=== PATIENT | female | born 1940 | race Caucasian/White ===

== ENCOUNTER 2020-10-30 14:23 | Inpatient (IN) | payer OTHER, SELFPAY ==
--- OUTSIDE RECORDS SUMMARY | 2020-10-30 14:42 | XMS REPORT | Clinical Summary ---
:1940 Author Organization [facility] Address [address] [place] [address] Care Team Providers Name Role Phone Yanick Clemente MD Primary Care Provider Allergies Active Allergy Reactions Severity Noted Date Comments Iodine Hives 05/18/2017 Iodine And Iodide Containing Products Rash Low Medications Medication Sig Dispensed Refills Start Date End Date Status escitalopram Take 20 mg 0 07/29/2020 Activ e (LEXAPRO) 20 MG by mouth tablet daily. levothyroxine Take 25 mcg 0 11/22/2019 Act lona (SYNTHROID) 25 mcg by mouth tablet every morning. carvediloL (COREG) Take 6.25 0 10/23/2019 Active 6.25 MG tablet mg by mouth 2 (two) times a day with meals. anastrozole Take 1 mg 0 Active (ARIMIDEX) 1 mg by mouth chemo tablet daily. insulin ASPART Inject 8 0 03/26/2020 Acti ve (NovoLOG) 100 Units under unit/mL (3 mL) the skin 3 insulin pen (three) times a day with meals. amLODIPine (NORVASC) Take 10 mg 0 Active 10 mg tablet by mouth daily. insulin degludec Inject 36 0 Act lona (Tresiba FlexTouch Units under U-100) 100 unit/mL the skin (3 mL) insulin pen every morning. dicyclomine (BENTYL) Take 20 mg 0 Active 20 mg tablet by mouth 3 (three) times a day as needed (abdominal pain). losartan (COZAAR) 50 Take 50 mg 0 Active MG tablet by mouth 2 (two) times a day. omeprazole Take 20 mg 0 Active (PriLOSEC) 20 MG by mouth capsule daily. clonIDINE (CATAPRES) Take 1 5 tablet 0 09/18/2020 Active 0.1 MG tablet tablet twice a day for one day, then 1 tablet daily for 3 days, then stop. clonIDINE (CATAPRES) Take 0.1 mg 0 07/26/2020 Discontinued 0.1 MG tablet by mouth 3 0 (Stop Taking at (three) Discharge) times a day. furosemide (LASIX) Take 20 mg 0 02/21/2020 Discontinued 40 mg tablet by mouth 0 daily. methscopolamine Take 5 mg 0 05/30/2020 Dis continued (PAMINE FORTE) 5 MG by mouth 0 tablet daily. ciprofloxacin Take 500 mg 0 08/22/2020 Dis continued (Med (CIPRO) 500 MG by mouth 2 0 List Cleanup) tablet (two) times a day. insulin degludec 100 Inject 36 0 03/26/2020 09/13/20 2 Discontinued (Med unit/mL (3 mL) Units under 0 Lis t Cleanup) insulin pen the skin. hyoscyamine sulfate Take 1 0 Discontinued 0.125 mg tablet by 0 tablet,disintegratin mouth 3 g (three) times a day as needed (abdominal pain). clonIDINE (CATAPRES) Take 1 60 tablet 0 09/18/2020 09/18/20 2 Discontinued 0.1 MG tablet tablet (0.1 0 mg total) by mouth 2 (two) times a day for 30 days. sulfamethoxazole-tri Take 1 4 tablet 0 09/18/2020 09/20/20 2 methoprim (BACTRIM tablet by 0 DS) 800-160 mg per mouth every tablet 12 (twelve) hours for 2 days. Active Problems Problem Noted Date Syncope and collapse 09/13/2020 Syncope 09/13/2020 Lung mass 08/30/2020 Overview: Added automatically from request for francis collado [id number] Encounters Date Type Specialty Care Team Description 10/07/2020 Telephone Oncology Chato Tinsley MD 10/03/2020 Telephone Oncology Mikayla West RN 09/23/2020 Patient Outreach Quality Melony Castano RN 09/20/2020 Patient Outreach Quality Melony Castano RN 09/20/2020 Travel 09/20/2020 Telephone Oncology Chato Tinsley MD 09/16/2020 Surgery Cardiothoracic Serafin Schmidt FLEXIBLE Surgery MD Judith BRONCHOSCOPY, ELECTROMAGNETIC NAVIGATIONAL BRONCHOSCOPY, B IOPSY OF LEFT UPPER L OBE MASS 09/16/2020 Anesthesia Event Cardiothoracic Jaskaran Molina, Surgery 09/13/2020 [facility] General Internal Boyareddigari, Syncope a nd collapse (Primary Dx); - Encounter Medicine Alex Ryan MD Hyperglycemia; 09/19/2020 [place] [place] Hypertension , unspecified type; MD Que DIONICIO (acute kidney injury) (HCC); Adalid Mitchell Frequent PVCs; MD Que Lung mass 09/13/2020 Orders Only Cardiothoracic Provider, Stephanie Voss MD 09/13/2020 Travel 09/12/2020 Telephone General Surgery Serafin Schmidt MD 09/02/2020 Travel 09/02/2020 Orders Only Cardiothoracic Provider, Stephanie Voss MD 09/02/2020 Telephone Cardiothoracic Juan C, Stephanie Lentz MA 08/30/2020 [facility] Radiology Serafin Schmidt MD 08/30/2020 [facility] Radiology Serafin Schmidt MD 08/30/2020 [facility] Radiology Serafin Schmidt MD 08/30/2020 Office Visit Cardiothoracic Serafin Schmidt Lung mass (Pr imary Dx); Surgery MD Judith Pre-op testing 08/30/2020 Orders Only Cardiothoracic Provider, Stephanie Voss MD 08/30/2020 Travel 08/27/2020 Travel after 10/30/2019 Surgical History Surgery Date Site/Laterality Comments MASTECTOMY BRONCHOSCOPY, USING 09/16/2020 Chest/Left Procedure: F LEXIBLE ELECTROMAGNETIC NAVIGATION [facility] HOSCOPY, ELECTROMAGNETIC NAVIGATIONAL BRO NCHOSCOPY, BIOPSY OF LEFT U PPER LOBE MASS; Surgeon: Serafin Schmidt MD; Locat ion: [facility] OR; Serv ice: Thoracic; Later ality: Left; US, ENDOBRONCHIAL 09/16/2020 N/A Procedure: EBU S; Surgeon: Serafin Schmidt MD; Location: [facility]; Service: Thoraci c; Laterality: N/A; THORACENTESIS 09/16/2020 Chest/N/A Procedure: LEFT THORACENTESIS; Surgeon: Serafin Schmidt MD; Location: [facility] OR; Service: Thoraci c; Laterality: N/A; Medical History Medical History Date Comments Breast cancer (HCC) Diabetes (HCC) UTI (urinary tract infection) HTN (hypertension) Lung mass Social History Tobacco Use Types Packs/Day Years Used Date Never Smoker Smokeless Tobacco: Never Used Alcohol Use Drinks/Week oz/Week Comments Never Alcohol Habits Answer Date Recorded How often do you have a drink containing alcohol? Never 08/30/2020 How many drinks containing alcohol do you have on a typical Not asked day when you are drinking? How often do you have six or more drinks on one occasion? No t asked Sex Assigned at Date Recorded Not on file Job Start Date Occupation Industry Not on file Not on file Not on file Last Filed Vital Signs Vital Sign Reading Time Taken Comments Blood Pressure 144/60 09/19/2020 7:23 AM [employer] Pulse 53 09/19/2020 7:23 AM [employer] Temperature 36.8 C (98.3 F) 09/19/2020 7:23 AM [employer] Respiratory Rate 18 09/19/2020 7:23 AM [employer] Oxygen Saturation 95% 09/19/2020 7:23 AM [employer] Inhaled Oxygen Concentration - - Weight 67.1 kg (148 lb) 09/13/2020 8:05 AM [employer] Height 157.5 cm (5' 2") 09/13/2020 8:05 AM [employer] Body Mass Index 27.07 09/13/2020 8:05 AM [employer] Plan of Treatment Health Maintenance Due Date Last Done Comments DIABETES: RETINAL EYE EXAM 01[birth year]04/1950 DIABETIC FOOT EXAM 01[birth year]04/1950 COVID-19 VACCINE (#1) 1956 SHINGLES VACCINES (#1) 01/04/1990 65+ PNEUMOCOCCAL VACCINE (1 of 1 - PPSV23) 01/04/2005 INFLUENZA VACCINE 06/01/2020 09/01/2019 Procedures Procedure Name Priority Date/Time Associated Comments Diagnosis POC GLUCOSE Routine 09/19/2020 8:45 Results for this AM [employer] procedure are i n the results section. ESTIMATED GFR Routine 09/19/2020 5:30 Results fo r this AM [employer] procedure are i n the results section. CBC HEMOGRAM Routine 09/19/2020 5:30 Results for this AM [employer] procedure are i n the results section. BASIC METABOLIC PANEL Routine 09/19/2020 5:30 Re sults for this AM [employer] procedure are i n the results section. POC GLUCOSE Routine 09/18/2020 9:02 Results for this PM [employer] procedure are i n the results section. POC GLUCOSE Routine 09/18/2020 5:31 Results for this PM [employer] procedure are i n the results section. POC GLUCOSE Routine 09/18/2020 1:09 Results for this PM [employer] procedure are i n the results section. XR CHEST 1 VW PORTABLE STAT 09/18/2020 9:37 R esults for this AM [employer] procedure are i n the results section. POC GLUCOSE Routine 09/18/2020 8:31 Results for this AM [employer] procedure are i n the results section. POC GLUCOSE Routine 09/18/2020 5:31 Results for this AM [employer] procedure are i n the results section. ESTIMATED GFR Routine 09/18/2020 3:00 Results fo r this AM [employer] procedure are i n the results section. CBC HEMOGRAM Routine 09/18/2020 3:00 Results for this AM [employer] procedure are i n the results section. BASIC METABOLIC PANEL Routine 09/18/2020 3:00 Re sults for this AM [employer] procedure are i n the results section. POC GLUCOSE Routine 09/17/2020 11:54 Results for this PM [employer] procedure are i n the results section. POC GLUCOSE Routine 09/17/2020 4:46 Results for this PM [employer] procedure are i n the results section. POC GLUCOSE Routine 09/17/2020 1:04 Results for this PM [employer] procedure are i n the results section. POC GLUCOSE Routine 09/17/2020 8:19 Results for this AM [employer] procedure are i n the results section. ESTIMATED GFR Routine 09/17/2020 4:10 Results fo r this AM [employer] procedure are i n the results section. PHOSPHORUS LEVEL Routine 09/17/2020 4:10 Results for this AM [employer] procedure are i n the results section. MAGNESIUM LEVEL Routine 09/17/2020 4:10 Results for this AM [employer] procedure are i n the results section. BASIC METABOLIC PANEL Routine 09/17/2020 4:10 Re sults for this AM [employer] procedure are i n the results section. HC COMPLETE BLD COUNT Routine 09/17/2020 4:10 Re sults for this W/AUTO DIFF AM [employer] procedure are i n the results section. POC GLUCOSE Routine 09/16/2020 10:05 Results for this PM [employer] procedure are i n the results section. XR CHEST 1 VW PORTABLE STAT 09/16/2020 8:58 R esults for this PM [employer] procedure are i n the results section. POC GLUCOSE Routine 09/16/2020 5:59 Results for this PM [employer] procedure are i n the results section. XR CHEST 1 VW PORTABLE STAT 09/16/2020 4:27 R esults for this PM [employer] procedure are i n the results section. SURGICAL PATHOLOGY Routine 09/16/2020 4:11 Resul ts for this REQUEST PM [employer] procedure are i n the results section. SURGICAL PATHOLOGY Routine 09/16/2020 4:11 Resul ts for this REQUEST PM [employer] procedure are i n the results section. BAL CELL COUNT AND Routine 09/16/2020 2:46 Resul ts for this DIFFERENTIAL PM [employer] procedure are i n the results section. CYTOLOGY Routine 09/16/2020 1:20 Results for this (NON-GYNECOLOGICAL) PM [employer] procedur e are in REQUEST the results section. CYTOLOGY Routine 09/16/2020 1:20 Results for this (NON-GYNECOLOGICAL) PM [employer] procedur e are in REQUEST the results section. CYTOLOGY Routine 09/16/2020 1:20 Results for this (NON-GYNECOLOGICAL) PM [employer] procedur e are in REQUEST the results section. CYTOLOGY Routine 09/16/2020 1:20 Results for this (NON-GYNECOLOGICAL) PM [employer] procedur e are in REQUEST the results section. WV AN ELECTIVE Routine 09/16/2020 1:03 Results f or this ENDOTRACHEAL AIRWAY PM [employer] procedur e are in the results section. CYTOLOGY Routine 09/16/2020 10:45 Results for this (NON-GYNECOLOGICAL) AM [employer] procedur e are in REQUEST the results section. CYTOLOGY Routine 09/16/2020 10:45 Results for this (NON-GYNECOLOGICAL) AM [employer] procedur e are in REQUEST the results section. CYTOLOGY Routine 09/16/2020 10:44 Results for this (NON-GYNECOLOGICAL) AM [employer] procedur e are in REQUEST the results section. CYTOLOGY Routine 09/16/2020 10:44 Results for this (NON-GYNECOLOGICAL) AM [employer] procedur e are in REQUEST the results section. TTE COMPLETE, W Routine 09/16/2020 10:00 Results for this CONTRAST, W DOPPLER AM [employer] procedur e are in ([id number]) the results section. POC GLUCOSE Routine 09/16/2020 9:16 Results for this AM [employer] procedure are i n the results section. CT CHEST WO CONTRAST STAT 09/16/2020 8:50 Res ults for this AM [employer] procedure are i n the results section. CYTOLOGY Routine 09/16/2020 6:12 Results for this (NON-GYNECOLOGICAL) AM [employer] procedur e are in REQUEST the results section. CYTOLOGY Routine 09/16/2020 6:12 Results for this (NON-GYNECOLOGICAL) AM [employer] procedur e are in REQUEST the results section. CYTOLOGY Routine 09/16/2020 6:12 Results for this (NON-GYNECOLOGICAL) AM [employer] procedur e are in REQUEST the results section. POC GLUCOSE Routine 09/16/2020 4:25 Results for this AM [employer] procedure are i n the results section. ABO AND RH CONFIRMATION Routine 09/16/2020 4:25 Results for this AM [employer] procedure are i n the results section. B NATRIURETIC PEPTIDE Routine 09/16/2020 4:25 Re sults for this AM [employer] procedure are i n the results section. HC COMPLETE BLD COUNT Routine 09/16/2020 4:25 Re sults for this W/AUTO DIFF AM [employer] procedure are i n the results section. ESTIMATED GFR Routine 09/16/2020 4:00 Results fo r this AM [employer] procedure are i n the results section. PHOSPHORUS LEVEL Routine 09/16/2020 4:00 Results for this AM [employer] procedure are i n the results section. MAGNESIUM LEVEL Routine 09/16/2020 4:00 Results for this AM [employer] procedure are i n the results section. BASIC METABOLIC PANEL Routine 09/16/2020 4:00 Re sults for this AM [employer] procedure are i n the results section. ANTIBODY IDENTIFICATION Routine 09/16/2020 1:35 Results for this AM [employer] procedure are i n the results section. TYPE AND SCREEN Routine 09/16/2020 1:35 Results for this AM [employer] procedure are i n the results section. POC GLUCOSE Routine 09/16/2020 1:06 Results for this AM [employer] procedure are i n the results section. URINE CULTURE Routine 09/15/2020 9:52 Results fo r this PM [employer] procedure are i n the results section. POC GLUCOSE Routine 09/15/2020 8:59 Results for this PM [employer] procedure are i n the results section. URINALYSIS SCREEN AND Routine 09/15/2020 6:55 Re sults for this MICROSCOPY, WITH REFLEX PM [employer] proc edure are in TO CULTURE the results section. POC GLUCOSE Routine 09/15/2020 5:11 Results for this PM [employer] procedure are i n the results section. POC GLUCOSE Routine 09/15/2020 11:52 Results for this AM [employer] procedure are i n the results section. POC GLUCOSE Routine 09/15/2020 8:08 Results for this AM [employer] procedure are i n the results section. ESTIMATED GFR Routine 09/15/2020 4:50 Results fo r this AM [employer] procedure are i n the results section. PHOSPHORUS LEVEL Routine 09/15/2020 4:50 Results for this AM [employer] procedure are i n the results section. MAGNESIUM LEVEL Routine 09/15/2020 4:50 Results for this AM [employer] procedure are i n the results section. BASIC METABOLIC PANEL Routine 09/15/2020 4:50 Re sults for this AM [employer] procedure are i n the results section. HC COMPLETE BLD COUNT Routine 09/15/2020 4:50 Re sults for this W/AUTO DIFF AM [employer] procedure are i n the results section. POC GLUCOSE Routine 09/14/2020 9:19 Results for this PM [employer] procedure are i n the results section. POC GLUCOSE Routine 09/14/2020 5:11 Results for this PM [employer] procedure are i n the results section. POC GLUCOSE Routine 09/14/2020 1:39 Results for this PM [employer] procedure are i n the results section. HC COMPLETE BLD COUNT STAT 09/14/2020 8:44 Re sults for this W/AUTO DIFF AM [employer] procedure are i n the results section. POC GLUCOSE Routine 09/14/2020 7:08 Results for this AM [employer] procedure are i n the results section. ESTIMATED GFR STAT 09/14/2020 7:08 Results fo r this AM [employer] procedure are i n the results section. BASIC METABOLIC PANEL STAT 09/14/2020 7:08 Re sults for this AM [employer] procedure are i n the results section. HC COMPLETE BLD COUNT Routine 09/14/2020 5:30 Re sults for this W/AUTO DIFF AM [employer] procedure are i n the results section. HEMOGLOBIN A1C Routine 09/14/2020 5:30 Results f or this AM [employer] procedure are i n the results section. BLOOD CULTURE, AEROBIC Routine 09/13/2020 8:40 R esults for this & ANAEROBIC PM [employer] procedure are i n the results section. BLOOD CULTURE, AEROBIC Routine 09/13/2020 8:40 R esults for this & ANAEROBIC PM [employer] procedure are i n the results section. POC GLUCOSE Routine 09/13/2020 7:28 Results for this PM [employer] procedure are i n the results section. TROPONIN Timed 09/13/2020 5:00 Results for this PM [employer] procedure are i n the results section. COVID-19 QUALITATIVE STAT 09/13/2020 3:07 Res ults for this PCR PM [employer] procedure are i n the results section. NM LUNG PERFUSION STAT 09/13/2020 1:26 Result s for this IMAGING PM [employer] procedure are i n the results section. CT CHEST WO CONTRAST Routine 09/13/2020 12:50 Res ults for this PM [employer] procedure are i n the results section. TROPONIN Timed 09/13/2020 11:56 Results for this AM [employer] procedure are i n the results section. US DUPLEX VENOUS LOWER STAT 09/13/2020 11:00 R esults for this EXTREMITY RIGHT AM [employer] procedure ar e in the results section. ECG 12-LEAD STAT 09/13/2020 9:59 Results for this AM [employer] procedure are i n the results section. MAGNESIUM LEVEL STAT 09/13/2020 8:18 Results for this AM [employer] procedure are i n the results section. ESTIMATED GFR STAT 09/13/2020 8:18 Results fo r this AM [employer] procedure are i n the results section. TROPONIN STAT 09/13/2020 8:18 Results for this AM [employer] procedure are i n the results section. BASIC METABOLIC PANEL STAT 09/13/2020 8:18 Re sults for this AM [employer] procedure are i n the results section. PARTIAL THROMBOPLASTIN STAT 09/13/2020 8:18 R esults for this TIME (PTT) AM [employer] procedure are i n the results section. PROTHROMBIN TIME WITH STAT 09/13/2020 8:18 Re sults for this INR AM [employer] procedure are i n the results section. HC COMPLETE BLD COUNT STAT 09/13/2020 8:18 Re sults for this W/AUTO DIFF AM [employer] procedure are i n the results section. ECG 12-LEAD Routine 09/13/2020 8:14 Results for this AM [employer] procedure are i n the results section. ECG ED PRELIMINARY Routine 09/13/2020 8:13 Resul ts for this INTERPRETATION AM [employer] procedure are in the results section. ECG ED PRELIMINARY Routine 09/13/2020 8:13 Resul ts for this INTERPRETATION AM [employer] procedure are in the results section. [id number] Routine 09/12/2020 MRI BRAIN W WO CONTRAST Routine 09/10/[address] WHOLE BODY Routine 08/29/2020 8:49 Result s for this EXTERNAL STUDY AM CDT procedure are in the results section. PET CT SKULL BASE TO Routine 08/29/2020 MID THIGH NM BONE SCAN EXTERNAL Routine 08/16/2020 10:39 Re sults for this STUDY AM CDT procedure are i n the results section. CT CHEST EXTERNAL STUDY Routine 08/16/2020 8:43 Results for this AM CDT procedure are i n the results section. CT CHEST WO CONTRAST Routine 08/16/2020 ABDOMEN WO CONTRAST PELVIS WO CONTRAST PET CT SKULL BASE TO Routine 08/16/2020 MID THIGH after 10/30/2019 Results POC glucose (09/19/2020 8:45 AM [employer])Only the most recent of24 resultswithin the time period is included. [facility] Signature POC glucose 174 (H) 65 - 99 mg/dL [facility] Comment: HOSPITAL Wash Operator Name: Germaine Vasquez Device ID: [id number] Chartable: [facility] Notified RN Specimen Blood Performing Organization Address City/[facility] Phon e Number [facility] DEPARTMENT OF PATHOLOGY AND [address] [place] [address] [address] Estimated GFR (09/19/2020 5:30 AM [employer])Only the most recent of7 resultswithin the time period is included. [facility] Estimated GFR 39 (A) mL/min/1.73 [facility] Comment: HOSPITAL Catergory Units Interpretation G1 >=90 Normal or high G2 60-89 Mildly decreased G3a 45-59 Mildly to moderately decreas ed G3b 30-44 Moderately to severely decre ased G4 15-29 Severely decreased G5 <15 Kidney failure The eGFR was calculated using the Chronic Kidney Disea se Epidemiology Collaboration (CKD-EPI) equation. Interpretation is based on recommendations of the National Kidney Foundation-Kidney Disease Outcomes Jim lity Initiative (NKF-KDOQI) published in 2014. Specimen Plasma Performing Organization Address City/[facility] Phon e Number [facility] DEPARTMENT OF PATHOLOGY AND [address] [place], [place] [phone] [address] [address] CBC hemogram (09/19/2020 5:30 AM [employer])Only the most recent of2 resultswithin the time period is included. Pathologist Sig nature WBC 6.70 4.50 - 11.00 k/uL [facility] RBC 4.61 4.20 - 5.50 m/uL [facility] HGB 12.0 12.0 - 16.0 g/dL [facility] HCT 36.7 (L) 37.0 - 47.0 % [facility] MCV 79.6 (L) 82.0 - 100.0 fL [facility] MCH 26.0 (L) 27.0 - 34.0 pg [facility] MCHC 32.7 31.0 - 37.0 g/dL [facility] RDW - SD 37.4 37.0 - 55.0 [facility] MPV 11.4 8.8 - 13.2 fL [facility] Platelet count 207 150 - 400 k/uL [facility] Nucleated RBC 0.00 /100 WBC [facility] Specimen Plasma Performing Organization Address City/[facility] Phon e Number [facility] DEPARTMENT OF PATHOLOGY AND [address] [place] [address] [address] [address] Basic metabolic panel (09/19/2020 5:30 AM [employer])Only the most recent of7 results within the time period is included. Pathologist Sig nature Sodium 140 135 - 148 mEq/L [facility] Potassium 4.0 3.5 - 5.0 mEq/L [facility] Chloride 104 98 - 112 mEq/L [facility] CO2 24 24 - 31 mEq/L [facility] Anion gap 12@ANIO 7 - 15 mEq/L [facility] BUN 12 8 - 23 mg/dL [facility] Creatinine 1.29 (H) 0.50 - 0.90 mg/dL [facility] Glucose 148 (H) 65 - 99 mg/dL [facility] Calcium 8.7 (L) 8.8 - 10.2 mg/dL [facility] Specimen Plasma Performing Organization Address City/[facility] Phon e Number [facility] DEPARTMENT OF PATHOLOGY AND [address] [place], [place] [phone] [address] [address] XR Chest 1 Vw Portable (09/18/2020 9:37 AM [employer])Only the most recent of3 results within the time period is included. Specimen Narrative Performed At EXAMINATION: XR CHEST 1 VW PORTABLE RADIANT HISTORY: recent bronchoscopy blood-tin ged sputum COMPARISON: 09/16/2020. IMPRESSION: Support Devices: None. Mediastinum: Unchanged appearance of cardiomediastinal silhouette, with atherosclerotic calcification of the aor ta. Lungs: Unchanged nearly 3 cm masslike opacity o f the left upper lobe. Unchanged small left pleural effusion. Slightly improved aeration of the left lower lobe, wit h persistent left retrocardiac opacity which may reflect a telectasis or pneumonia. No pneumothorax. Bones/Other: Degenerative changes of cervicothoracic s pine partially visualized. [id number] Procedure Note Hm Interface, Radiology Results Incoming - 09/18/2020 9:45 AM [employer] EXAMINATION: XR CHEST 1 VW PORTABLE HISTORY: recent bronchoscopy blood-ting ed sputum COMPARISON: 09/16/2020. IMPRESSION: Support Devices: None. Mediastinum: Unchanged appearance of car diomediastinal silhouette, with atherosclerotic calcification of the aorta. Lungs: Unchanged nearly 3 cm masslike opacity o f the left upper lobe. Unchanged small left pleural effusion. Slightly improved aeration of the left l ower lobe, with persistent left retrocardiac opacity which may reflect atelectasis or pneumonia. No pneumothorax. Bones/Other: Degenerative changes of cer vicothoracic spine partially visualized. [id number] Performing Organization Address City/State/ZIP Code Phon e Number [facility] [address] [place] [address] CBC with platelet and differential (09/17/2020 4:10 AM [employer])Only the most recent of6 resultswithin the time period is included. WBC 8.54 4.50 - 11.00 [facility] RBC 4.85 4.20 - 5.50 [facility] HGB 12.4 12.0 - 16.0 [facility] g/dL [facility] HCT 39.2 37.0 - 47.0 % [facility] MCV 80.8 (L) 82.0 - 100.0 [facility] MCH 25.6 (L) 27.0 - 34.0 pg [facility] MCHC 31.6 31.0 - 37.0 [facility] g/dL [facility] RDW - SD 38.2 37.0 - 55.0 [facility] MPV 11.8 8.8 - 13.2 [facility] Platelet count 195 150 - 400 k/uL [facility] Nucleated RBC 0.00 /100 WBC [facility] Neutrophils 55.1 39.0 - 69.0 % [facility] Lymphocytes 29.2 25.0 - 45.0 % [facility] Monocytes 9.6 0.0 - 10.0 % [facility] Eosinophils 4.6 0.0 - 5.0 % [facility] Basophils 1.1 (H) 0.0 - 1.0 % [facility] Immature granulocytes 0.4Comment: 0.0 - 1.0 % [facility] "Immature HOSPITAL granulocytes" (promyelocytes , myelocytes, metamyelocytes ) Specimen Plasma Performing Organization Address [facility] Phon e Number [facility] DEPARTMENT OF PATHOLOGY AND [address] [place] [address] Phosphorus level (09/17/2020 4:10 AM [employer])Only the most recent of3 resultswithin the time period is included. Pathologist Sig nature Phosphorus 2.4 2.4 - 4.5 mg/dL [facility] Specimen Plasma Performing Organization Address [facility] Phon e Number [facility] DEPARTMENT OF PATHOLOGY AND [address] [place] [phone] Magnesium level (09/17/2020 4:10 AM [employer])Only the most recent of4 resultswithin the time period is included. Pathologist Sig nature Magnesium 1.7 1.6 - 2.4 mg/dL [facility] Specimen Plasma Performing Organization Address [facility] Phon e Number [facility] DEPARTMENT OF PATHOLOGY AND [address] [place] [address] [place] [address] Surgical pathology request (09/16/2020 4:11 PM [employer])Only the most recent of2 resultswithin the time period is included. [facility] DEPARTMENT OF PATHOLOGY AND GENOMIC MEDICINE Surgical pathology See link below for [facility] DEPARTMENT O F report PDF Lab Report PATHOLOGY AND GENOMIC MEDICINE Result status This is Supplemental [facility] DEPARTMENT OF Report for PATHOLOGY AND [id number] GENOMIC MEDICINE Specimen Narrative Performed At NEOGENOMICS [facility] DEPARTMENT OF PATHOLOGY AND GENOMIC LUNG NGS MEDICINE [id number] DOS 09/16/2020 Block B1 Performing Organization Address City/[facility] Phon e Number [facility] DEPARTMENT OF PATHOLOGY AND [address] [place] [address] 0 GENOMIC MEDICINE BAL cell count and differential (09/16/2020 2:46 PM [employer]) BAL specimen source MAX BAL [facility] BAL cell count 0.040 m/mL [facility] Comment: [facility] Normal ranges: Nonsmokers: 0.007 - 0.363 Smokers: 0 - 1.31 73% viability, many rbc's present BAL PAMS 3 % [facility] Comment: [facility] Normal ranges: Nonsmokers: 65 - 100 Smokers: 81 - 100 BAL PMNS 83 % [facility] Comment: [facility] Normal ranges: Nonsmokers: 0 - 3 Smokers: 0 - 2 BAL eosinophils 10 % [facility] Comment: HOSPITAL Normal ranges: Nonsmokers: 0 - 1 Smokers: 0 - 1 BAL lymphs 4 % [facility] Comment: HOSPITAL Normal ranges: Nonsmokers: 0 - 10 Smokers: 0 - 5 Specimen Fluid Narrative Performed At [facility] AND GENOMIC MEDICINE Performing Organization Address City/[facility] Phon e Number [facility] DEPARTMENT OF PATHOLOGY AND [address] [place] [address] 0 GENOMIC MED[address] [address] Cytology (non-gynecological) request (09/16/2020 1:20 PM [employer])Only the most recent of11 resultswithin the time period is included. [facility] DEPARTMENT OF PATHOLOGY AND GENOMIC MEDICINE Cytology See link below [facility] DEPARTMENT OF (non-gynecological) for PDF Lab PATHOLOGY AND report Report GENOMIC MEDICINE Result status This is Final [facility] DEPARTMENT OF Report for PATHOLOGY AND [id number] GENOMIC MEDICINE Specimen Performing Organization Address City/[facility] Phon e Number [facility] DEPARTMENT OF PATHOLOGY AND [address] [place], [place] [phone] 0 GENOMIC MEDICINE Airway (09/16/2020 1:03 PM [employer]) Narrative Performed At Jaskaran Molina MD 09/16/2020 1:05 PM Airway Date/Time: 09/16/2020 1:03 PM Performed by: Jaskaran Molina MD Authorized by: Jaskaran Molina MD Location: OR Urgency: Elective Difficult Airway: No Preoxygenated with 100% O2: Yes Mask Ventilation: Easy mask Final Airway Type: Endotracheal airway Final Endotracheal Airway: ETT Cuffed: Yes Technique Used: Direct laryngoscopy Insertion Site: Oral Blade Type: Brand Laryngoscope Blade/Videolaryngoscope Travon de Size: 2 ETT Size (mm): 9.0 Cuff at minimum occlusion pressure: Yes Measured from: Lips Placement Verified by: CO2 detection, di rect visualization and equal breath sounds Laryngoscopic view: Grade I - full vie w of glottis Rapid Sequence Induction (RSI): No Modified RSI: No Number of Attempts at Approach: 1 Transthoracic Echocardiogram Complete, (w Contrast, Strain and 3D if needed) (09/16/2020 10:00 AM [employer]) Specimen Narrative Performed At [facility] Echo cardiography Report [address] [place] [address] Pat.Name: DAHIANA WEATHERS [facility].ID: [id number] .Date: 09/16/2020 Refer.MD: ANALI BURGOS MD Exam Time: 9:19:00 AM Study Type:R outine Echo Height: 62in Weight: 148lb BSA: 1.68 m2 Ag e: 1940,80Y Sex: FEMALE BP: 120/56 HR: 73 bpm Sonogr phr: ODILON Friend, RDCS Pat. Stat.:Inpatient Room: [place] [address] Study Status:Final Echo Event ID:[id number] Order ID: [id number] Reason for Study:Syncope Procedures: 2D Echo, Colorflow Doppler, Portable, Intravenous Optison Contrast Race: C SUMMARY: LV EF is hyperdynamic. Estimated EF is > 70%. RV systolic function is normal. No significant valvular abnormalities. Diastolic dysfunction Grade I (Mild): Im paired relaxation with normal LV filling pressures. Estimated PA systolic pressure is appx 3 2 mmHg, assuming a mean RAP of 5 mmHg. FINDINGS: LV: LV size is normal. Concentr ic left ventricular remodeling. LV EF is hyperdynamic. Re gional wall motion abnormalities present. Estimated EF is >70%. RV: RV size is normal. RV systo lic function is normal. LA: LA volume is upper limits o f normal. RA: RA size is normal. AO: Aortic root diameter is nor mal. BRANDO: No pericardial effusion. The re is an anterior space consistent with a promine nt epicardial fat pad. AV: Mild thickening of AV leafl ets. A trace of aortic regurgitation. MV: No structural MV abnormalit ies noted. A trace of mitral regurgitation. PV: No structural PV abnormalit ies noted. TV: No structural TV abnormalit ies noted. A trace of tricuspid regurgitation Palma: Diastolic dysfunction Grade I (Mild): Impaired relaxation with normal LV filling pr essures. Other: Estimated PA systolic pressu re is appx 32 mmHg, assuming a mean RAP of 5 mmHg. MEASUREMENTS: 2D Parasternal Long Paoli Ao An 1.9 cm LVPWd 1 cm Ao Rtd 2.8 cm Index 1.7 cm/m2 LA Ds 4 cm IVSd 1.1 cm RWT 0.53 LVIDd 3.8 cm Index 2.3 cm/m2 LV Mass 124 g (87-12 9) LVIDs 2.1 cm LVM In dex 74 g/m LV%fs 45 % LA Sng Plane LA Area 19 cm (8.8-23.4) LA Vol 56 ml Index 33 ml/m2 LA LngAx 5.5 cm RA Sng Plane RA Vol 21 ml Index 13 ml/m2 RA LngAx 4.2 cm RA Area 9.9 cm (8.3-1 9.5) LVOT Stroke Vol & Cardiac Out LVOT 1.8 cm LVOT LVOT Area 2.5 cm DOPPLER LVOT Stroke Vol & Cardiac Out LVOT TVI 27 cm LVOT CI 2.6 l/m/m LVOT SV 68 ml HR 64 bpm LVOT CO 4.4 l/min LVOT SVi 41 ml/m TV Pressure Gradient TV PkVel 258 cm/s TV PG 27 mmHg WALL MOTION: RESTING WALL MOTION: Basal Inferoseptal wall is hypokinetic. Normal wall motion in all other carrington. Wall Index = 1.1 Signed 09/16/2020 01:08 PM Mary Alice Henley MD Procedure Note Interface, Radiology Results In - 2019 1:09 PM [facility] Echocardiography Report [address] [place] [address] Pat.Name: DAHIANA WEATHERS Pat.I D: [id number] .Date: 09/16/2020 Refer .MD: ANALI BURGOS MD Exam Time: 9:19:00 AM Study Type:Routine Echo Height: 62in Weigh t: 148lb BSA: 1.68 m2 Age: 3 1940,80Y Sex: FEMALE BP: 120/56 HR: 73 bpm Sonog rphr: Aylin Rodriguez, BS, RDCS Pat. Stat.:Inpatient Room: [place] [address] Study Status:Final Echo Event ID:[id number] Order ID: [id number] Reason for Study:Syncope Procedures: 2D Echo, Colorflow Doppler, Portable, Intravenous Optison Contrast Race: C SUMMARY: LV EF is hyperdynamic. Estimated EF is > 70%. RV systolic function is normal. No significant valvular abnormalities. Diastolic dysfunction Grade I (Mild): Im paired relaxation with normal LV filling pressures. Estimated PA systolic pressure is appx 3 2 mmHg, assuming a mean RAP of 5 mmHg. FINDINGS: LV: LV size is normal. Concentric left ventricular remodeling. LV EF is hyperdynamic. Regiona l wall motion abnormalities present. Estimated EF is >70%. RV: RV size is normal. RV systolic function is normal. LA: LA volume is upper limits of n ormal. RA: RA size is normal. AO: Aortic root diameter is normal . BRANDO: No pericardial effusion. There is an anterior space consistent with a prominent ep icardial fat pad. AV: Mild thickening of AV leaflets . A trace of aortic regurgitation. MV: No structural MV abnormalities noted. A trace of mitral regurgitation. PV: No structural PV abnormalities noted. TV: No structural TV abnormalities noted. A trace of tricuspid regurgitation Palma: Diastolic dysfunction Grade I (Mild): Impaired relaxation with normal LV filling pressur es. Other: Estimated PA systolic pressure is appx 32 mmHg, assuming a mean RAP of 5 mmHg. MEASUREMENTS: 2D Parasternal Long Paoli Ao An 1.9 cm LVPW d 1 cm Ao Rtd 2.8 cm Inde x 1.7 cm/m2 LA Ds 4 cm IVSd 1.1 cm RWT 0.53 LVIDd 3.8 cm Inde x 2.3 cm/m2 LV Mass 124 g (87-129) LVIDs 2.1 cm LVM Index 74 g/m LV%fs 45 % LA Sng Plane LA Area 19 cm (8.8-23.4) L A Vol 56 ml Index 33 ml/m2 LA LngAx 5.5 cm RA Sng Plane RA Vol 21 ml Inde x 13 ml/m2 RA LngAx 4.2 cm RA Area 9.9 cm (8.3-19.5) LVOT Stroke Vol & Cardiac Out LVOT 1.8 cm LVOT LVOT Area 2.5 cm DOPPLER LVOT Stroke Vol & Cardiac Out LVOT TVI 27 cm LVOT CI 2.6 l/m/m LVOT SV 68 ml HR 64 bpm LVOT CO 4.4 l/min LVOT SVi 41 ml/m TV Pressure Gradient TV PkVel 258 cm/s TV P G 27 mmHg WALL MOTION: RESTING WALL MOTION: Basal Inferoseptal wall is hypokinetic. Normal wall motion in all other carrington. Wall Index = 1.1 Signed 09/16/2020 01:08 PM Mary Alice Henley MD Performing Organization Address City/State/ZIP Code Phon e Number [facility] [address] [place] [address] CT Chest Wo Contrast (09/16/2020 8:50 AM [employer])Only the most recent of2 results within the time period is included. Specimen Narrative Performed At EXAMINATION: [facility] CT CHEST WO CONTRAST CLINICAL HISTORY: Veran CT in preparation for navigational bronchoscopy TECHNIQUE: Multiple axial images of the chest were o btained without intravenous contrast. The lack of intravenous contrast reduces the sensitivity of detecting solid organ disease and evalu ating vasculature. CT images were obtained using low-dose technique with automated exposure control. Sagittal an d coronal computerized reformatted images were als o obtained. COMPARISON: CT from 09/13/2020 FINDINGS: Lungs and airways: There is a 4 cm spiculated mass in the left upper lobe suspicious for primary lung carcinoma. There is m oderate volume loss in the left lower lobe as well as dependently in the left upper lobe. Right lung is clear. Pleura: There is a moderate partially lo culated left pleural effusion. Mediastinum and lymph nodes: There is mediastinal lymp hadenopathy. Pretracheal node measures 1.3 x 1.4 cm. Prevascular no de measures 1 x 1.6 cm. Cardiovascular: Heart is normal in size. Small pericar dial effusion. Scattered coronary artery calcification. Thoracic aort a is nonaneurysmal. Upper abdomen: Small hiatal hernia. Bones: No suspicious osseous lesions. Other: None. IMPRESSION: 4 cm spiculated left upper lobe mass suspicious for pr imary lung carcinoma. Moderate partially loculated left pleural e ffusion with volume loss in the left lung particularly the left low er lobe, similar to prior exam. Mildly enlarged mediastin al nodes are suspicious for malignant adenopathy. [id number] Procedure Note Hm Interface, Radiology Results Incoming - 09/16/2020 9:37 AM [employer] EXAMINATION: CT CHEST WO CONTRAST CLINICAL HISTORY: Veran CT in preparation for navigational bronchoscopy TECHNIQUE: Multiple axial images of the chest were obtained without intravenous contrast. The lack of intravenous contrast reduces the sensitivity of detecting solid organ disease and evaluating vasculature. CT images were obtained using low-dose technique with automated exposure contro l. Sagittal and coronal computerized reformatted images were also obtained. COMPARISON: CT from 09/13/2020 FINDINGS: Lungs and airways: There is a 4 cm spicu lated mass in the left upper lobe suspicious for primary lung carcinoma. There is moderate volume loss in the left lower lobe as well as dependently in the left upper lobe. Right lung is clear. Pleura: There is a moderate partially lo culated left pleural effusion. Mediastinum and lymph nodes: There is me diastinal lymphadenopathy. Pretracheal node measures 1.3 x 1.4 cm. Prevascular node measures 1 x 1.6 cm. Cardiovascular: Heart is normal in size. Small pericardial effusion. Scattered coronary artery calcification. Thoracic aorta is nonaneurysmal. Upper abdomen: Small hiatal hernia. Bones: No suspicious osseous lesions. Other: None. IMPRESSION: 4 cm spiculated left upper lobe mass awilda picious for primary lung carcinoma. Moderate partially loculated left pleural effusion with volume loss in the left lung particularly the left lower lobe, similar to prior exam. Mildly enlarged mediastinal nodes are suspicious for malignant adenopathy. [id number] Performing Organization Address City/State/ZIP Code Phon e Number [facility] [address] [place] [address] ABO and Rh confirmation (09/16/2020 4:25 AM [employer]) Pathologist Sig nature ABO grouping A [facility] Rh type NEG [facility] Specimen Plasma Performing Organization Address [facility] Phon e Number [facility] DEPARTMENT OF PATHOLOGY AND [address] [place] [address] [phone] [address] B natriuretic peptide (09/16/2020 4:25 AM [employer]) Pathologist Sig nature BNP 56 0 - 100 pg/mL [facility] Specimen Blood Performing Organization Address City/[facility] Phon e Number [facility] DEPARTMENT OF PATHOLOGY AND [address] [place] [address] [phone] [address] Antibody identification (09/16/2020 1:35 AM [employer]) Pathologist Sig nature Antibody ID POS, Anti-D [facility] Specimen Performing Organization Address [facility] Phon e Number [facility] DEPARTMENT OF PATHOLOGY AND [address] [place] [address] [phone] [address] Type and screen (09/16/2020 1:35 AM [employer]) Pathologist Sig nature ABO grouping A [facility] Rh type NEG [facility] Antibody screen (gel) POS [facility] Specimen Plasma Performing Organization Address [facility] Phon e Number [facility] DEPARTMENT OF PATHOLOGY AND [address] [place] [address] [phone] [address] Urine culture (09/15/2020 9:52 PM [employer]) Urine culture Mixed danny <=10-3 col/cc [facility] IST isolate Comment: HOSPITAL Specimen Information Specimen Source: Urine Specimen Site: Catheterized Specimen Urine - Catheterized Performing Organization Address City/[facility]/ZIP [facility] Phon e Number [facility] DEPARTMENT OF PATHOLOGY AND [address] [place] [address] [phone] [address] Urinalysis screen and microscopy, with reflex to culture (09/15/2020 6:55 PM [employer]) Specimen site Catheterized [facility] Color, UA Yellow [facility] Appearance, UA Clear [facility] Specific gravity, UA 1.017 1.001 - 1.035 [facility] pH, UA 5.0 5.0 - 8.5 [facility] Protein, UA Negative Negative [facility] Glucose, UA Negative Negative [facility] Ketones, UA Negative Negative [facility] Bilirubin, UA Negative Negative [facility] Blood, UA Negative Negative [facility] Nitrite, UA Negative Negative [facility] Urobilinogen, UA <2.0 <2.0 [facility] Leukocyte esterase, Small (A) Negative [facility] Epithelial cells, UA 2 /HPF [facility] WBC, UA 32 (H) 0 - 4 /HPF [facility] RBC, UA 3 0 - 5 /HPF [facility] Bacteria, UA Few None seen [facility] Yeast, UA None seen [facility] Yeast with None seen [facility] pseudohyphae, [facility] Hyaline casts, UA 20 /LPF [facility] Specimen Urine Performing Organization Address City/[facility] Phon e Number [facility] DEPARTMENT OF PATHOLOGY AND [address] [place] [address] Hemoglobin A1c (09/14/2020 5:30 AM [employer]) Hemoglobin A1C 9.1 (H) 4.0 - 5.6 % [facility] Comment: HOSPITAL HbA1c cutoffs for diagnosing diabetes: 4.0% - 5.6% = normal 5.7% - 6.4% = increased risk for diabetes (prediabetes )9 >=6.5% = diabetes9 Goals for glycemic control (ADA 2016) < 7.0% Target for non adults with diabetes. More or less stringent targets may be appropriate for individual patients. <7.5% Target for Children and adolescents with type 1 diabetes. Specimen Blood Performing Organization Address City/[facility] Phon e Number [facility] DEPARTMENT OF PATHOLOGY AND [address] [place] [address] [address] Blood culture, aerobic & anaerobic (09/13/2020 8:40 PM [employer])Only the most recent of2 resultswithin the time period is included. Blood culture No growth after 5 days of incubation. [facility] isolate Comment: HOSPITAL Specimen Information Specimen Source: Blood Specimen Site: Left Forearm Specimen Blood Performing Organization Address City/[facility] Phon e Number [facility] DEPARTMENT OF PATHOLOGY AND [address] [place] [address] [phone] [address] Troponin (09/13/2020 5:00 PM [employer])Only the most recent of3 resultswithin the time period is included. [facility] Troponin 0.012 0.000 - 0.040 [facility] Comment: ng/mL HOSPITAL In patients suspected of having a myocardial infarctio n, along with all other appropriate clinical measures and actions includ ing ECG and other diagnostics as appropriate, measure Ultra TnI at 0 hrs and at 3 hrs. Myocardial infarction VERY LIKELY The 0 hr TnI level is > 0.10 ng/mL Myocardial infarction LIKELY The 0 hr TnI level is > 0.04 ng/mL and 3 hr level is i ncreased or decreased by at least 0.020 ng/mL Myocardial infarction VERY UNLIKELY Both the 0 hr and 3 hr TnI levels <= 0.04 ng/mL(within normal limits) OR 0 hr is > 0.04 ng/mL and 3 hr is increased OR decreased by less than 0.020 ng/mL Specimen Plasma Performing Organization Address City/[facility] Code Phon e Number [facility] DEPARTMENT OF PATHOLOGY AND [address] [place], [place] [address] [address] COVID-19 qualitative PCR (09/13/2020 3:07 PM [employer]) Interpretation Negative results do not prec lude 2019-nCoV infection and should not be used as the sole basis for treatment or other patient management decisions. Negative results must be combined with clinical observations, patient history, and epidemiological [facility] information. [facility] COVID-19 qualitative Not-Detected Not-Detecte [facility] PCR result d [facility] COVID-19 qualitative See link below for [facility] PCR PDF Lab RELIGION ReportComment: Case HOSPITAL Number: [id number] Specimen Nasopharyngeal swab Performing Organization Address City/State/ZIP Code Phon e Number [facility] DEPARTMENT OF PATHOLOGY AND [address] [place], [place] [address] GENOMIC MEDICINE [facility] [address] [place] [address] [facility] Lung Perfusion Imaging (09/13/2020 1:26 PM [employer]) Specimen Narrative Performed At PROCEDURE: NM LUNG PERFUSION IMAGING [facility] INDICATION: PE suspected low pretest p rosenda COMPARISON: Chest CT performed on same d ay TECHNIQUE: Perfusion imaging in multiple projections w as performed after intravenous administration of 5 mCi of Tc-99m labeled MAA. No ventilation imaging was performed. FINDINGS: A defect is seen in the left upper lobe shasha esponding to a mass in the comparison CT exam. Perfusion is diffusely reduced in the remainder of the left lung likely due to the presence of a moderate pleural effusion. Perfusion throughout t he right lung is mildly heterogeneous. No suspicious segm ental defects are seen. IMPRESSION: 1.Low probability of acute pulmonary emb olism. 2.Perfusion defect in the left upper lobe corresponds to a lung mass. Please refer to the CT study report for details. [facility]-[id number] Procedure Note Interface, Radiology Results Incoming - 09/13/2020 1:56 PM [employer] PROCEDURE: NM LUNG PERFUSION IMAGING INDICATION: PE suspected low pretest pr ob COMPARISON: Chest CT performed on same d ay TECHNIQUE: Perfusion imaging in multiple projections was performed after intravenous administration of 5 mCi of Tc-99m labeled MAA. No ventilation imaging was performed. FINDINGS: A defect is seen in the left u pper lobe corresponding to a mass in the comparison CT exam. Perfusion is diffusely reduced in the remainder of the left lung likely due to the presence of a moderate pleural effusion. Perfusion throughout the right lung is mildly heterogeneous. No s uspicious segmental defects are seen. IMPRESSION: 1.Low probability of acute pulmonary emb olism. 2.Perfusion defect in the left upper lob e corresponds to a lung mass. Please refer to the CT study report for details. [facility]-[id number] Performing Organization Address City/State/ZIP Code Phon e Number [facility] [address] [facility] [place] [address] Us duplex venous lower extremity (09/13/2020 11:00 AM [employer]) Specimen Narrative Performed At [facility] V[facility] U ltrasound Laboratory Lower Extr emity Venous Report [id number] [facility], [address], [place] [address] Pat.Name: DAHIANA WEATHERS Pat.ID: [id number] .Date: 09/13/2020 Refer.MD: CAS PATE MD, RAHEEM PEREZ, ALEX Genao MD Exam Time: 10:32:00 AM Study Type:LE Venous Height: 62in Weight: 148lb BSA: 1.68 m2 Ag e: 1940,80Y Sex: FEMALE Sonogrphr: Freddie Wright, RVS, Tong Gutierrez RDMS, RVT Pat. Stat.:Inpatient Room: ED19 Tape Vol: CM, CPT - 4: 42240 Echo Event ID:[id number] Order ID: [id number] Reason for Study:Leg swelling or pain, D VT suspected. Patient has a history of lung mass, and HTN Procedures: Colorflow, Grayscale/2D, Pul sed wave Doppler SUMMARY: DUPLEX SCAN OBSERVATIONS Deep Veins Superficial Veins Right Left Right Left GSV (prox) Normal Normal CFV Normal Normal (above knee) Femoral Normal GSV (dist) Normal Profunda Normal (below knee) Popliteal Normal PT (prox) Normal SSV Not Visualized PT (dist) Normal Peroneal Normal Gastrocs Normal RIGHT: There is normal compressibility w ith no evidence of echogenic material noted within the lumen of the v isualized veins. Color flow and Doppler signals are normal. LEFT: There is normal compressibility wi th no evidence of echogenic material noted within the lumen of the c ommon femoral vein. Color flow and Doppler signals are normal. PRELIMINARY FINDINGS: 1. No evidence of venous thrombosis in t he visualized veins. Results given to Dr. Parsons 1108 PHYSICIAN INTERPRETATION: Venous examination of the right lower ex tremity and left groin demonstrated no evidence of venous throm bosis in the visualized veins. Normal compressibility and augmentation of all veins visualized. FINDINGS: Signed 09/13/2020 03:09 PM Santiago Samson MD, VI Procedure Note Interface, Radiology Results In - 2019 3:09 PM [facility] Vascular Ultrasound Laboratory Lower Extremity Veno us Report [id number] [place] [address] Pat.Name: DAHIANA WEATHERS Pat.I D: [id number] .Date: 09/13/2020 Refer.MD: CAS PATE MD, FARHAT Jurado, ALEX Genao MD Exam Time: 10:32:00 AM Study Type:LE Venous Height: 62in Weigh t: 148lb BSA: 1.68 m2 Age: 3 1940,80Y Sex: FEMALE Sonogrphr: TITO Koroma, Tong Gutierrez, RDMS, RVT Pat. Stat.:Inpatient Room: ED19 Tape Vol: CM, CPT - 4: 55177 Echo Event ID:[id number] Order ID: [id number] Reason for Study:Leg swelling or pain, D VT suspected. Patient has a history of lung mass, and HTN Procedures: Colorflow, Grayscale/2D, Pul sed wave Doppler SUMMARY: DUPLEX SCAN OBSERVATIONS Deep Veins Superficial Veins Right Left Right Left GSV (prox) Normal Normal CFV Normal Normal (above knee) Femoral Normal GSV (dist) Normal Profunda Normal (below knee) Popliteal Normal PT (prox) Normal SSV Not Visualized PT (dist) Normal Peroneal Normal Gastrocs Normal RIGHT: There is normal compressibility w ith no evidence of echogenic material noted within the lumen of the v isualized veins. Color flow and Doppler signals are normal. LEFT: There is normal compressibility wi th no evidence of echogenic material noted within the lumen of the c ommon femoral vein. Color flow and Doppler signals are normal. PRELIMINARY FINDINGS: 1. No evidence of venous thrombosis in t he visualized veins. Results given to Dr. Parsons [id number] PHYSICIAN INTERPRETATION: Venous examination of the right lower ex tremity and left groin demonstrated no evidence of venous throm bosis in the visualized veins. Normal compressibility and augmentation of all veins visualized. FINDINGS: Signed 09/13/2020 03:09 PM Santiago Samson MD, [facility] Performing Organization Address City/[facility] e Number [facility] [address] [place] [address] ECG 12 lead (09/13/2020 9:59 AM [employer])Only the most recent of2 resultswithin the time period is included. Pathologist Sig nature Ventricular rate 93 [facility] Atrial rate 93 [facility] WV interval 128 [facility] QRSD interval 74 [facility] QT interval 392 [facility] QTC interval 487 [facility] QRS axis 1 -35 [facility] T wave axis 48 [facility] EKG impression Sinus rhythm with fusion com plexes-Left axis deviation-Prolonged QT-Abnormal ECG-In automated comparison with ECG of 13-SEP-2020 08:14,-fusion complexes are now present-QRS axis shifted left-Electronically Signed By Courtney STARR, Yanick Raza ([id number]) on H MUSE 09/13/2020 7:27:19 PM Specimen Narrative Performed At This result has an attachment that is no t available. Performing Organization Address City/State/[facility] Code Phon e Number [facility] MUSE [address] [place] [phone] Partial thromboplastin time, activated (09/13/2020 8:18 AM [employer]) PTT 24.1 23.0 - 36.0 [facility] Comment: [facility] PTT therapeutic range for unfractionated heparin is 61.0-112.0 seconds which corresponds to Anti-Xa 0.3-0.7 U/ml. Specimen Blood Performing Organization Address City/State/ZIP Code Phon e Number [facility] DEPARTMENT OF PATHOLOGY AND [address] [place] [address] [place] [address] Prothrombin time with INR (09/13/2020 8:18 AM [employer]) Prothrombin time 14.5 11.5 - 14.5 [facility] INR 1.1 [facility] Comment: RELIGION The International Normalized Ratio (INR) is a [facility] monitoring tool for patients who are stable on oral anticoagulant therapy. An INR of 2.0-3.0 is suggested for deep vein thrombosis/pulmonary embolism. Specimen Blood Performing Organization Address City/[facility] Phon e Number [facility] DEPARTMENT OF PATHOLOGY AND [address] [place] [address] [place] [phone] ECG ED Preliminary Interpretation - Not an Order (09/13/2020 8:13 AM [employer])Only the most recent of2 resultswithin the time period is included. Narrative Performed At Alex Leo MD 6:44 AM ECG ED Preliminary Interpretation - Not an Order Performed by: Alex Leo MD Authorized by: Alex Leo MD ECG reviewed by ED Physician in the abse nce of a instrumental teacher: yes Interpretation: Interpretation: abnormal Rate: ECG rate: 88 ECG rate assessment: normal Rhythm: Rhythm: sinus rhythm Ectopy: Ectopy: PVCs PVCs: Frequent QRS: QRS axis: Normal QRS intervals: Normal Conduction: Conduction: normal ST segments: ST segments: Normal T waves: T waves: normal Comments: Prolonged QT Miscellaneous Lab Result (09/12/2020) Specimen Blood Narrative Performed At This result has an attachment that is no t available. MRI Brain W Wo Contrast (09/10/2020) Narrative Performed At This result has an attachment that is no t available. PET/CT Whole Body External Study (08/29/2020 8:49 AM CDT) Specimen Narrative Performed At This exam was not acquired at a [facility] facility and has not been [facility] interpreted by a [facility] Provider. T he exam was imported into our imaging system. Performing Organization Address City/[facility] Code Phon e Number [facility] [address] [place] [address] PET/CT Skull Base To Mid Thigh (08/29/2020)Only the most recent of2 results within the time period is included. Narrative Performed At This result has an attachment that is no t available. NM Bone Scan External Study (08/16/2020 10:39 AM CDT) Specimen Narrative Performed At This exam was not acquired at a [facility] facility and has not been [facility] interpreted by a [facility] Provider. T he exam was imported into our imaging system. Performing Organization Address City/[facility] Code Phon e Number [facility] [address] [place] [address] CT Chest External Study (08/16/2020 8:43 AM CDT) Specimen Narrative Performed At This exam was not acquired at a [facility] facility and has not been [facility] interpreted by a [facility] Provider. T he exam was imported into our imaging system. Performing Organization Address [facility] Phon e Number [facility] [address] [place] [address] CT Chest Wo Contrast Abdomen Wo Contrast Pelvis Wo Contrast (08/16/2020) Narrative Performed At This result has an attachment that is no t available. after 10/30/2019
--- OUTSIDE RECORDS SUMMARY | 2020-10-30 14:43 | XMS REPORT | Continuity of Care Document ---
:1940 Author Organization [facility] t Address [address] [place] [address] Care Team Providers Name Role Phone Yanick Clemente MD Primary Care Physician Kale STARR, K.H. Attending Clinician Pancho Tinsley MD Attending Clinician Joana West RN Attending Clinician Unavailable Omaira MCDANIEL Attending Clinician Unavailable Ahmet STARR, R. Attending Clinician Aubrey STARR, Hill Grey Attending Clinician Que Hendrix MD Attending Clinician Brayan STARR, Y.H. Attending Clinician Jesse STARR, W. Attending Clinician Doni STARR Attending Clinician Juan C KUMAR Attending Clinician Unavailable JOHAN Attending Clinician Unavailable ARIEL Attending Clinician Unavailable AUBREY Admitting Clinician Unavailable JOHAN Admitting Clinician Unavailable ARIEL Admitting Clinician Unavailable Payers Payer Name Policy Type Policy Effective Date Expiration Date Sour ce Number UHC MEDICAREUHC [id number] 2020 [place] MEDICARE 00:00:00 Faith [id number] -Present [place] Problems Condition Condition Condition Status Onset Resolution Last Treating Co mments Source Name Details Category Date Date Treatment Clinician Date Syncope Syncope Disease Active 2019-11 [place] and and 11-13 [facility] collapse collapse 00:00: st 00 Syncope Syncope Disease Active 2019-11 [place] 11-13 [facility] 00:00: st 00 Lung mass Lung mass Disease Active 2019-11 Overview: [place] 030 Added Method[facility] 00:00: automatic st 00 ally from request for surgery [id number] Allergies, Adverse Reactions, Alerts Allergy Allergy Status Severity Reaction(s) Onset Inactive Treating Comm ents Source Name Type Date Date Clinician Iodine Propensi Active Rash 2019-11 [place] And ty to 11-13 [facility] Iodide adverse 00:00: st Containi reaction 00 ng s to Products drug Iodine Propensi Active Hives [place] ty to 05-18 [facility] adverse 00:00: st reaction 00 s to drug Social History Social Habit Start Date Stop Date Quantity Comments Source History [facility] Meth odist Alcohol Std Drinks History [facility] Meth odist Alcohol Binge Sex Assigned At [facility] ethodist Tobacco use and 2020-09-18 2020-09-18 Never used [facility] ethodist exposure 00:00:00 00:00:00 Alcohol intake 2020-09-18 2020-09-18 [facility] thodist 00:00:00 00:00:00 non-drinker (finding) History SDOH 2020-08-30 2020-08-30 1 [place] Meth odist Alcohol Frequency 00:00:00 00:00:00 Smoking Status Start Date Stop Date Source Never smoker [place] Method[facility] t Medications Ordered Filled Start Stop Current Ordering Indication Dosage Frequency Signature Comments Components Source Medication Medication Date Date Medication? Clinician (SIG) Name Name hyoscyamine 2019-11 2020- No 1{tbl} Q.[id number] Take 1 [place] sulfate 11-19 [id number] tablet by Method[facility] 0.125 mg 10:27: 00:[address] tablet,disi 09 :00 (three) ntegrating times a day as needed (abdominal pain). anastrozole 2019-11 Yes 1mg QD Take 1 mg [place] (ARIMIDEX) 11-19 by mouth Metho di 1 mg chemo 10:27: daily. st tablet 06 amLODIPine 2019-11 Yes 10mg QD Take 10 mg [place] (NORVASC) 11-19 by mouth Method i 10 mg 10:27: daily. st tablet 06 insulin 2019-11 Yes 36U QD Inject 36 [place] degludec 1-19 Units Methodi (Tresiba 10:27: under the st FlexTouch 06 skin every U-100) 100 morning. unit/mL (3 mL) insulin pen dicyclomine 2019-11 Yes 20mg Q.32915841 Take 20 mg [place] (BENTYL) 20 - [id number] by mouth 3 [facility] mg tablet 10:27: 3D (three) st 06 times a day as needed (abdominal pain). losartan 2019-11 Yes 50mg Q.5D Take 50 mg Franny ston (COZAAR) 50 - by mouth 2 Me thodi MG tablet 10:27: (two) st 06 times a day. omeprazole 2019-11 Yes 20mg QD Take 20 mg [place] (PriLOSEC) 11-19 by mouth Metho di 20 MG 10:27: daily. st capsule 06 clonIDINE 2019-11 Yes Take 1 [place] (CATAPRES) 18 tablet Methodi 0.1 MG 00:00: twice a st tablet 00 day for one day, then 1 tablet daily for 3 days, then stop. sulfamethox 2019-11 2020- No 1{tbl} Q.5D Take 1 [place] azole-trime 11-18-20 tablet by Me thodi thoprim 00:00: 23:[address] (BACTRIM 00 :00 every 12 DS) 800-160 (twelve) mg per hours for tablet 2 days. clonIDINE 2019-11 2020- No .1mg Q.5D Take 1 [place] (CATAPRES) 11-18 tablet Method i 0.1 MG 00:00: 00:00 (0.[address] tablet 00 :00 total) by mouth 2 (two) times a day for 30 days. ciprofloxac 2019-11 2020- No 500mg Q.5D Take 500 [place] in (CIPRO) 0-22 11-13 mg by Methodi 500 MG 00:00: 00:[address] tablet 00 :00 (two) times a day. escitalopra Yes 20mg QD Take 20 mg [place] m (LEXAPRO) 07-29 by mouth Meth tico 20 MG 00:00: daily. st tablet 00 clonIDINE 2020- No .1mg Q.61059794 Take 0.1 [place] (CATAPRES) 07-26 11-19 [id number] mg by M ethodi 0.1 MG 00:00: 00:[address] tablet 00 :00 (three) times a day. methscopola 2019- No 5mg QD Take 5 mg [place] mine 30 09-19 by mouth Method[facility] (PAMINE 00:00: 00:[address] FORTE) 5 MG 00 :00 tablet insulin 2019- Yes 8U Q.03771152 Inject 8 [place] ASPART 5-26 [id number] Units Method i (NovoLOG) 00:00: 3D under the st 100 unit/mL 00 skin 3 (3 mL) (three) insulin pen times a day with meals. insulin 2019- No 36U Inject 36 [place] degludec 5-26 - Units Methodi 100 unit/mL 00:00: 00:[address] (3 mL) 00 :00 skin. insulin pen furosemide 2019- No 20mg QD Take 20 mg [place] (LASIX) 40 02-20 by mouth Meth tico mg tablet 00:00: 00:[address] 00 :00 levothyroxi Yes 25ug QD Take 25 Franny ston ne 1-22 mcg by Methodi (SYNTHROID) 00:00: mouth st 25 mcg 00 every tablet morning. carvediloL 2018-11 Yes 6.25mg Q.5D Take 6.25 [place] (COREG) 2-23 mg by Methodi 6.25 MG 00:00: mouth 2 st tablet 00 (two) times a day with meals. Vital Signs Vital Name Observation Time Observation Value Comments Source Systolic blood 2020-09-19 07:23:34 144 mm[Hg] Gera n Faith pressure Diastolic blood 2020-09-19 07:23:34 60 mm[Hg] Farnaz on Faith pressure Heart rate 2020-09-19 07:23:34 53 /min Darci Joya Body temperature 2020-09-19 07:23:34 36.83 Dawna Fuad ton Faith Respiratory rate 2020-09-19 07:23:34 18 /min Fuad Joya Oxygen saturation in 2020-09-19 07:23:34 95 /min Darci Joya Arterial blood by Pulse oximetry Body height 2020-09-13 08:05:00 157.5 cm Darci Joya Body weight 2020-09-13 08:05:00 67.132 kg Darci Joya BMI 2020-09-13 08:05:00 27.07 kg/m2 Darci Joya Procedures Procedure Date / Time Performing Clinician Source Performed POC GLUCOSE 2020-09-19 08:45:00 Hendrix, Adalid Que Bejarano Met hodist BASIC METABOLIC PANEL 2020-09-19 05:30:00 Eagle Serra CBC HEMOGRAM 2020-09-19 05:30:00 Eagle Serra ESTIMATED GFR 2020-09-19 05:30:00 Hendrix, Adalid Que Bejarano Met hodist POC GLUCOSE 2020-09-18 21:02:00 Hendrix, Adalid Que [facility]jarano Met hodist POC GLUCOSE 2020-09-18 17:31:00 Hendrix, Adalid Que Bejarano Met hodist POC GLUCOSE 2020-09-18 13:09:00 Hendrix, Adalid Que Bejarano Met hodist XR CHEST 1 VW PORTABLE 2020-09-18 09:37:58 Eagle Serra Faith POC GLUCOSE 2020-09-18 08:31:00 Hendrix, Adalid Que Bejarano Met hodist POC GLUCOSE 2020-09-18 05:31:00 Hendrix, Adalid Que Bejarano Met hodist BASIC METABOLIC PANEL 2020-09-18 03:00:00 Eagle Serra CBC HEMOGRAM 2020-09-18 03:00:00 Eagle Serra ESTIMATED GFR 2020-09-18 03:00:00 Hendrix, Adalid Que Bejarano Met hodist POC GLUCOSE 2020-09-17 23:54:00 Hendrix, Adalid Que [facility]jarano Met hodist POC GLUCOSE 2020-09-17 16:46:00 Hendrix, Adalid Que [facility]jarano Met hodist POC GLUCOSE 2020-09-17 13:04:00 Hendrix, Adalid Que [facility]jarano Met hodist POC GLUCOSE 2020-09-17 08:19:00 Hendrix, Adalid Que Bejarano Met hodist HC COMPLETE BLD COUNT 2020-09-17 04:10:00 Flory Hoffman W/AUTO DIFF BASIC METABOLIC PANEL 2020-09-17 04:10:00 Flory Hoffman MAGNESIUM LEVEL 2020-09-17 04:10:00 Flory Hoffman Me thodist PHOSPHORUS LEVEL 2020-09-17 04:10:00 Flory Hoffman M ethodist ESTIMATED GFR 2020-09-17 04:10:00 Adalid Hendrix Met hodist POC GLUCOSE 2020-09-16 22:05:00 Hendrix, Adaliddaniel Bejarano Met hodist XR CHEST 1 VW PORTABLE 2020-09-16 20:58:39 Flory Hoffman Faith POC GLUCOSE 2020-09-16 17:59:00 Hendrix, Adaliddaniel Bejarano Met hodist XR CHEST 1 VW PORTABLE 2020-09-16 16:27:11 Flory Hoffman Faith SURGICAL PATHOLOGY 2020-09-16 16:11:00 HendrixAdalid farah Faith REQUEST BAL CELL COUNT AND 2020-09-16 14:46:00 HendrixAdalid farah Faith DIFFERENTIAL CYTOLOGY 2020-09-16 13:20:00 Adalid Hendrix Met hodist (NON-GYNECOLOGICAL) REQUEST DE AN ELECTIVE 2020-09-16 13:03:19 Jaskaran Molina Meth odist ENDOTRACHEAL AIRWAY CYTOLOGY 2020-09-16 10:45:00 Hendrix, Adalid Bejarano Met hodist (NON-GYNECOLOGICAL) REQUEST CYTOLOGY 2020-09-16 10:44:00 HendrixAdalid farah Met hodist (NON-GYNECOLOGICAL) REQUEST TTE COMPLETE, W CONTRAST, 2020-09-16 10:00:00 Kendra Penaist W DOPPLER ([id number]) [place] POC GLUCOSE 2020-09-16 09:16:00 [address] Met hodist [address] CHEST WO CONTRAST 2020-09-16 08:50:00 Apple Agarwal Faith [place] CYTOLOGY 2020-09-16 06:12:00 HendrixAdalid farah Met hodist (NON-GYNECOLOGICAL) REQUEST HC COMPLETE BLD COUNT 2020-09-16 04:25:00 Flory Hoffman Faith W/AUTO DIFF B NATRIURETIC PEPTIDE 2020-09-16 04:25:00 Cipriano Powell Faith [place] ABO AND RH CONFIRMATION 2020-09-16 04:25:00 Alea Osborneist POC GLUCOSE 2020-09-16 04:25:00 Burgos, Anali Faganist BASIC METABOLIC PANEL 2020-09-16 04:00:00 Flory Hoffman Faith MAGNESIUM LEVEL 2020-09-16 04:00:00 Flory Hoffman Me thodist PHOSPHORUS LEVEL 2020-09-16 04:00:00 Flory Hoffman Ivan ethodist ESTIMATED GFR 2020-09-16 04:00:00 Burgos, Anali Bejarano Faith TYPE AND SCREEN 2020-09-16 01:35:00 Alea Osborne ANTIBODY IDENTIFICATION 2020-09-16 01:35:00 Burgos, Anali Faganist POC GLUCOSE 2020-09-16 01:06:00 Burgos, Anali Joya URINE CULTURE 2020-09-15 21:52:00 Darci Fritz Meth odmilly Ryan POC GLUCOSE 2020-09-15 20:59:00 Burgos, Anali Faganist URINALYSIS SCREEN AND 2020-09-15 18:55:00 Nwogu, Kendra Osei on Faith MICROSCOPY, WITH REFLEX [place] TO CULTURE POC GLUCOSE 2020-09-15 17:11:00 Burgos, Anali Bejarano Faith POC GLUCOSE 2020-09-15 11:52:00 Bugros, Anali Bejarano Faith POC GLUCOSE 2020-09-15 08:08:00 Burgos, Anali Faganist HC COMPLETE BLD COUNT 2020-09-15 04:50:00 HoffmanFlory matos Faith W/AUTO DIFF BASIC METABOLIC PANEL 2020-09-15 04:50:00 HoffmanFlory matos Faith MAGNESIUM LEVEL 2020-09-15 04:50:00 Flory Hoffman Me thodist PHOSPHORUS LEVEL 2020-09-15 04:50:00 Flory Hoffman Ivan ethodist ESTIMATED GFR 2020-09-15 04:50:00 Burgos, Anali Bejarano Faith POC GLUCOSE 2020-09-14 21:19:00 Burgos, Anali Bejarano Faith POC GLUCOSE 2020-09-14 17:11:00 Burgos, Anali Bejarano Faith POC GLUCOSE 2020-09-14 13:39:00 Burgos, Anali Grey Bejarano Faith HC COMPLETE BLD COUNT 2020-09-14 08:44:00 Kendra Pena on Faith W/AUTO DIFF [place] BASIC METABOLIC PANEL 2020-09-14 07:08:00 NwoguKendra on Faith [place] ESTIMATED GFR 2020-09-14 07:08:00 Burgos, Anali Bejarano Faith POC GLUCOSE 2020-09-14 07:08:00 Burgos, Anali Dorseyh Que Bejarano Faith HEMOGLOBIN A1C 2020-09-14 05:30:00 Clark Castro [place] Faith HC COMPLETE BLD COUNT 2020-09-14 05:30:00 Aubrey, Anali Alejandre Que Cal moni Faith W/AUTO DIFF BLOOD CULTURE, AEROBIC & 2020-09-13 20:40:00 Kendra Pena Faith ANAEROBIC [place] POC GLUCOSE 2020-09-13 19:28:00 Burgos, Anali Grey Bejarano Faith TROPONIN 2020-09-13 17:00:00 Darci Fritz Meth jhonathan Johnson R. COVID-19 QUALITATIVE PCR 2020-09-13 15:07:00 Franny Fritz RTony NM LUNG PERFUSION IMAGING 2020-09-13 13:26:[address] CHEST WO CONTRAST 2020-09-13 12:50:00 Apple Agarwal [facility] [place] TROPONIN 2020-09-13 11:56:00 Darci Fritz Meth odmilly Johnson R. US DUPLEX VENOUS LOWER 2020-09-13 11:00:00 Farnaz Fritz on Faith EXTREMITY RIGHT Alex R. ECG 12-LEAD 2020-09-13 09:59:35 Radha Nunn on Faith HC COMPLETE BLD COUNT 2020-09-13 08:18:00 Gera Fritz n Faith W/AUTO DIFF Alex R. PROTHROMBIN TIME WITH INR 2020-09-13 08:18:00 Cal Fritz R. PARTIAL THROMBOPLASTIN 2020-09-13 08:18:00 Farnaz Fritz on Faith TIME (PTT) Alex Ryan BASIC METABOLIC PANEL 2020-09-13 08:18:00 Gera Fritzist Alex R. TROPONIN 2020-09-13 08:18:00 CrescenciocharlotteDarci willson Meth odist Alex R. ESTIMATED GFR 2020-09-13 08:18:00 Ahmet Bejarano Meth odist Alex R. MAGNESIUM LEVEL 2020-09-13 08:18:00 [facility] [place] Meth odist Alex R. ECG 12-LEAD 2020-09-13 08:14:16 Ahmet Bejarano Meth odist Alex R. ECG ED PRELIMINARY 2020-09-13 08:13:29 Crescenciocharity [facility] ethodist INTERPRETATION Alex Ryan [id number] 2020-09-12 00:00:00 Provider, Shanika Joya MRI BRAIN W WO CONTRAST 2020-09-10 00:00:[address] WHOLE BODY 2020-08-29 08:49:00 Serafin Schmidt EXTERNAL STUDY PET CT SKULL BASE TO MID 2020-08-29 00:00:00 Lissett Marion THIGH NM BONE SCAN EXTERNAL 2020-08-16 10:39:[address] CHEST EXTERNAL STUDY 2020-08-16 08:43:[address] SKULL BASE TO MID 2020-08-16 00:00:[address] CHEST WO CONTRAST 2020-08-16 00:00:00 ProviderShanika ABDOMEN WO CONTRAST PELVIS WO CONTRAST Plan of Care Planned Activity Planned Date Details Comments Source Future Scheduled 2020-06-01 INFLUENZA VACCINE Gera horan Faith Test 00:00:00 [code = INFLUENZA VACCINE] Future Scheduled 2005-01-04 65+ PNEUMOCOCCAL Darci Faith Test 00:00:00 VACCINE (1 of 1 - PPSV23) [code = 65+ PNEUMOCOCCAL VACCINE (1 of 1 - PPSV23)] Future Scheduled 1990-01-04 SHINGLES VACCINES (#1) [place] [facility] Test 00:00:00 [code = SHINGLES VACCINES (#1)] Future Scheduled 1956 COVID-19 VACCINE (#1) [place] Faith Test 00:00:00 [code = COVID-19 VACCINE (#1)] Future Scheduled 1950-01-04 DIABETES: RETINAL EYE [place] Faith Test 00:00:00 EXAM [code = DIABETES: RETINAL EYE EXAM] Future Scheduled 1950-01[birth year]04 DIABETIC FOOT EXAM [place] [facility] Test 00:00:00 [code = DIABETIC FOOT EXAM] Encounters Start End Encounter Admission Attending Care Care Encounter Source Date/Time Date/Time Type Type Clinicians Facility Department ID 2020-10-18 2020-10-18 Office Kale [facility] [id number] 20 16:20:54 16:53:41 Visit Thomas Hayward [id number] [place] [id number] Karen [id number] formerly [facility] 059 [facility] 2020-09-13 2020-09-19 Inpatient HENDRIX, [facility] 064 [id number] [place] 00:00:00 00:00:00 ADALID [address] 2020-08-30 2020-08-30 Outpatient SCHMIDT, [facility] [id number] [place] 00:00:00 00:00:00 EDWARD [address] 2020-08-30 2020-08-30 Outpatient SCHMIDT, [facility] [id number] [place] 00:00:00 00:00:00 EDWARD [address] 2020-08-30 2020-08-30 Outpatient SCHMIDT, [facility] [id number] [place] 00:00:00 00:00:00 EDWARD [address] 2020-08-30 2020-08-30 Outpatient SCHMIDT, [facility] [id number] [place] 00:00:00 00:00:00 EDWARD [address] 2016-06-15 2016-06-15 Emergency [facility] 064 [id number] [place] 00:00:00 00:00:[address] 2016-06-09 2016-06-11 Outpatient DESJessica, POPPY [facility] 012 [id number] [place] 00:00:00 00:00:[address] 2015-12-31 2015-12-31 Outpatient SHAN, [facility] 813 [id number] [place] 00:00:00 00:00:00 BRETT [address] 2015-12-30 2015-12-30 [id number] [place] 00:00:00 00:00:00 BRETT [address] Results Test Description Test Time Test Comments Results Result Comments Source Surgical pathology request 2020-10-07 16:51:20 Test Item Value Reference Range Interpretation Comme nts Case number (test code = 6271415) [id number] Surgical pathology report (test code See link below for PDF Direct Marketing Intern ort = 2255) Result status (test code = 6891230) This is Supplemental Report for [id number] JAIRO (test code = JAIRO) RADHA [id number] 09/16/2020Block B1 [facility] [id number] 08:45:47 Test Item Value Reference Range Interpretation Comments POC glucose (test 174 mg/dL 65-99 H Cullet Washer N paulette: Shittu code = 56794-9) Keyaunmiginger Device ID: [id number] able: [facility] 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 [id number] 08:05:46 Test Item Value Reference Range Interpretation Comments WBC (test code = 53794-7) 6.70 4.50- 11.00 k/uL RBC (test code = 30777-5) 4.61 m/uL 4.2-5.5 HGB (test code = 718-7) 12.0 g/dL 12-16 HCT (test code = 4544-3) 36.7 % 37-47 L MCV (test code = 787-2) 79.6 fL 82-100 L MCH (test code = 785-6) 26.0 pg 27-34 L MCHC (test code = 786-4) 32.7 g/dL 31-37 RDW - SD (test code = 57620-7) 37.4 fL 37-55 MPV (test code = 79626-8) 11.4 fL 8.8-13.2 Platelet count (test code = 207 150- 400 k/uL 11622-9) Nucleated RBC (test code = 0.00 /100 WBC 76044-6) Lab Interpretation (test code = Abnormal 29369-4) Bejarano MethodistBasic metabolic [id number] 07:59:07 Test Item Value Reference Range Interpretation Comments Sodium (test code = 2951-2) 140 135- 148 mEq/L Potassium (test code = 2823-3) 4.0 3.5- 5.0 mEq/L Chloride (test code = 2075-0) 104 98- 112 mEq/L CO2 (test code = 2027-9) 24 24- 31 mEq/L Anion gap (test code = 98864-3) 12@ANIO 7- 15 mEq/L BUN (test code = 3094-0) 12 mg/dL 8-23 Creatinine (test code = 2160-0) 1.29 mg/dL 0.5-0.9 H Glucose (test code = 2345-7) 148 mg/dL 65-99 H Calcium (test code = 99036-9) 8.7 mg/dL 8.8-10.2 L Lab Interpretation (test code = Abnormal 34453-8) Bejarano MethodistEstimated [id number] 07:59:07 Test Item Value Reference Range Interpretation Comments Estimated GFR (test 39 mL/min/1.73 m2 Jude Derrick frankyuliet Units code = 5488) InterpretationG 1 >=90 Claudia l or highG2 60-89 Mildly decrease dG3a 45-59 Mil dly to moderately decr aevkkW1y 30-44 Moderately to s everely decreasedG4 15-29 Severe ly decreasedG5 <15 Kidney skye lureThe eGFR was calcul ated using the Chron ic Kidney Disease Epidemiology Collaboration ( CKD-EPI) equation. Interpretation is based on recommendati ons of the National Ki dney Foundation-Kidn ey Disease Outcome s Quality Initiat lona (NKF-KDOQI) pub lished in 2013. Lab Interpretation Abnormal (test code = 00089-2) Bejarano MethodistBlood culture, aerobic & [id number] 02:03:08 Test Item Value Reference Range Interpretation Comments Blood culture No growth Specimen isolate (test after 5 days InformationSpe cimen code = 600-7) of Source: BloodS pecimen incubation. Site: Left Fore arm [place] MethodistXR Chest 1 Vw [id number] 09:42:47 Interface, Radiology Results Incoming - 09/18/2020 9:45 AM CSTEXAMINATION: XR CHEST 1 PORTABLEHISTORY: recent bronchoscopy blood-tinged sputumCOMPARISON: 09/16/2020.IMPRESSION: Support Devices: None.Mediastinum: Unchanged appearance of cardiomediastinal silhouette, with atherosclerotic calcification of the aorta.Lungs:Unchanged nearly 3 cm masslike opacity of the left upper lobe.Unchanged small left pleural effusion.Slightly improved aeration of the left lower lobe, with persistent left retrocardiac opacity which may reflect atelectasis or pneumonia.No pneumothorax.Bones/Other: Degenerative changes of cervicothoracic spine partially visualized.[id number] MethodistCytology (non-gynecological) [id number] 20:12:25 Test Item Value Reference Range Interpretation Comments Case number (test code = [id number]) Cytology See link below for (non-gynecological) PDF Lab Report report (test code = 1178) Result status (test code This is Final Report = [id number]) for [id number] [place] MethodistMagnesium [id number] 08:07:08 Test Item Value Reference Range Interpretation Comments Magnesium (test code = 58543-8) 1.7 mg/dL 1.6-2.4 [place] MethodistPhosphorus [id number] 08:07:05 Test Item Value Reference Range Interpretation Comments Phosphorus (test code = 2777-1) 2.4 mg/dL 2.4-4.5 [place] MethodistCBC with platelet and [id number] 06:16:54 Test Item Value Reference Range Interpretation Comments WBC (test code = 87994-3) 8.54 4.50- 11.00 k/uL RBC (test code = 70503-5) 4.85 m/uL 4.2-5.5 HGB (test code = 718-7) 12.4 g/dL 12-16 HCT (test code = 4544-3) 39.2 % 37-47 MCV (test code = 787-2) 80.8 fL 82-100 L MCH (test code = 785-6) 25.6 pg 27-34 L MCHC (test code = 786-4) 31.6 g/dL 31-37 RDW - SD (test code = 38.2 fL 37-55 42407-3) MPV (test code = 55221-0) 11.8 fL 8.8-13.2 Platelet count (test code 195 150- 400 k/uL = 95995-1) Nucleated RBC (test code 0.00 /100 WBC = 61381-9) Neutrophils (test code = 55.1 % 39-69 39986-5) Lymphocytes (test code = 29.2 % 25-45 28893-8) Monocytes (test code = 9.6 % 0-10 76109-6) Eosinophils (test code = 4.6 % 0-5 51176-1) Basophils (test code = 1.1 % 0-1 H 74144-7) Immature granulocytes 0.4 % 0-1 "Immat ure (test code = 09468-7) granul ocytes" (promyelocytes, myelocytes, metamyelocytes) Lab Interpretation (test Abnormal code = 73501-0) Darci JoyaUrine [id number] 00:54:02 Test Item Value Reference Range Interpretation Comments Urine culture Mixed danny Specimen isolate (test <=10-3 col/cc InformationSp ecimen code = 50519-9) Source: [facility]rin [facility]Spec[facility] FaithBAL cell count and [id number] 21:40:34 Test Item Value Reference Range Interpretation Comments BAL specimen source MAX BAL (test code = 20120-9) BAL cell count (test 0.040 m/mL Normal ranges: code = 11796-3) Nonsmokers: 0.007 - 0.363 Smokers: 0 - 1. 31 73% viability, many rbc's present BAL PAMS (test code = 3 % Normal ranges: 58047-3) Nonsmokers: 65 - 100 Smokers: 81 - 1 00 BAL PMNS (test code = 83 % Normal ranges: 9306-2) Nonsmokers: 0 - 3 Smok ers: 0 - 2 BAL eosinophils (test 10 % Normal ranges: code = 20705-5) Nonsmokers: 0 - 1 Smok ers: 0 - 1 BAL lymphs (test code = 4 % Norm al ranges: 31013-3) Nonsmokers: 0 - 10 Smo kers: 0 - 5 JAIRO (test code = JAIRO) BAL MAX [place] MethodistTransthoracic Echocardiogram Complete, (w Contrast, Strain and 3D if needed)2020-09-16 13:08:00Interface, Radiology Results In - 09/16/2020 1:09 PM [facility] Echocardiography Report [id number] [address] [facility].Name: FRANTZ WEATHERS Pat.ID: [id number].Date: 09/16/2020 Refer.MD: ANALI BURGOS MDExam Time: 9:19:00 AM Study Type:Routine Echo Height: 62in Weight: 148lb BSA: 1.68 m2 Age: 3 1940,80Y Sex: FEMALE BP: 120/56 HR: 73 bpm Sonogrphr: Aylin Rodriguez, BS, [facility] Pat. Stat.:Inpatient Room: [place] [address] Study Status:Final Echo Event ID:[id number] Order ID: [id number] Reason for Study:Syncope Procedures: 2D Echo, Colorflow Doppler, Portable, Intravenous OptisonContrastRace: C SUMMARY: LV EF is hyperdynamic. Estimated EF is >70%.RV systolic function is normal.No significant valvular abnormalities.Diastolic dysfunction Grade I (Mild): Impaired relaxation with normalLVfilling pressures.Estimated PA systolic pressure is appx 32 mmHg, assuming a mean RAP of5 mmHg.------ FINDINGS: LV: LV size is normal. Concentric left ventricular remodeling. LV EF is hyperdynamic. Regional wall motion abnormalities present. Estimated EF is >70%.RV: RV size is normal. RV systolic functionis normal.LA: LA volume is upper limits of normal.RA: RA size is normal.AO: Aortic root diameter is normal.BRANDO: No pericardial effusion. There is an anterior space consistent with a prominent epicardial fat pad.AV: Mild thickening of AV leaflets. A trace of aortic regurgitation. MV: No structural MV abnormalities noted. A trace of mitral regurgitation. PV: No structural PV abnormalities noted.TV: No structural TV abnormalitiesnoted. A trace of tricuspid regurgitation [place]: Diastolic dysfunction Grade I (Mild): Impaired relaxation with normal LV filling pressures.Other: Estimated PA systolic pressureis appx 32 mmHg, assuming a mean RAP of 5 mmHg. MEASUREME NTS: 2DParasternal Long [place] AoAn 1.9 cm LVPWd 1 cm Ao Rtd 2.8 cm Index 1.7 cm/m2 LA Ds 4 cm IVSd 1.1 cm RWT 0.53 LVIDd 3.8 cm Index 2.3 cm/m2 LV Mass 124 g (87-129) LVIDs 2.1 cm LVM Index 74 g/m2 LV%fs 45 % LA Sng Plane LA Area 19 cm2 (8.8-23.4) LA Vol 56 ml Index 33 ml/m2 LA LngAx 5.5 cm RA Sng Plane RA Vol 21 ml Index 13 ml/m2 RA LngAx 4.2 cm RA Area 9.9 cm2 (8.3-19.5)LVOT Stroke Vol & Cardiac Out LVOT 1.8 cm LVOT LVOT Area 2.5 cm2 DOPPLERLVOT Stroke Vol & Cardiac Out LVOT TVI 27 cmLVOT CI 2.6 l/m/m2 LVOT SV 68 ml HR 64 bpm LVOT CO 4.4 l/min LVOT SVi 41 ml/m2 TV Pressure Gradient TV [id number] cm/s TV PG 27 mmHg WALL MOTION:-------- RESTING WALL MOTION:Basal Inferoseptal wall is hypokinetic. Normal wall motion in allother carrington.Wall Index = 1.1Signed 09/16/2020 01:08 PMMarie Tapia [id number] 13:03:19 Jaskaran Molina MD 09/16/2020 1:05 PMAirway Date/Time: 09/16/2020 1:03 PMPerformed by: Jaskaran Molina, MDAuthorized by: Jaskaran Molina MD Location: ORUrgency: ElectiveDifficult Airway: No Preoxygenated with 100% O2: Yes Mask Ventilation: Easy maskFinal Airway Type: Endotracheal airwayFinal Endotracheal Airway: ETTCuffed: Yes Technique Used: Direct laryngoscopyInsertion Site: OralBlade Type: MillerLaryngoscope Blade/Videolaryngoscope Blade Size: 2ETT Size (mm): 9.0Cuff at minimum occlusion pressure: Yes Measured from: LipsPlacement Verified by: CO2 detection, direct visualization andequal breath sounds Laryngoscopic view: Grade I - full view of glottisRapid Sequence Induction (RSI): No Modified RSI: No Number of Attempts at Approach: 1[facility]CT [facility] Wo [id number] 09:34:07Hm Interface, Radiology Results Incoming - 09/16/2020 9:37 AM CSTEXAMINATION:CT CHEST WO CONTRASTCLINICAL HISTORY:Veran CT in preparation for navigational bronchoscopyTECHNIQUE: Multiple axial imagesof the chest were obtained without intravenous contrast. The lack of intravenous contrast reduces the sensitivity of detecting solid organ disease and evaluating vasculature. CT images were obtained using low-dose technique with automated exposure control. Sagittal and coronal computerized reformattedimages were also obtained.COMPARISON:CT from 09/13/2020FINDINGS:Lungs and airways: There is a 4 cm spiculated mass in the left upper lobe suspicious for primary lung carcinoma. There is moderate volumeloss in the left lower lobe as well as dependently in the left upper lobe. Right lung is clear.Pleura: There is a moderate partially loculated left pleural effusion.Mediastinum and lymph nodes: There is mediastinal lymphadenopathy. Pretracheal node measures 1.3 x 1.4 cm. Prevascular node measures 1 x 1.6 cm. Cardiovascular: Heart is normal in size. Small pericardial effusion. Scattered coronary artery calcification. Thoracic aorta is nonaneurysmal.Upper abdomen: Small hiatal hernia.Bones: No suspicious osseous lesions. Other: None.IMPRESSION:4 cm spiculated left upper lobe mass suspicious for primary lung carcinoma. Moderate partially loculated left pleural effusion with volume loss in the left lung particularly the left lower lobe, similar to prior exam. Mildly enlarged mediastinal nodes are susp icious for malignant adenopathy. [id number] MethodistAntibody [id number] 06:07:00 Test Item Value Reference Range Interpretation Comments Antibody ID (test code = 32585-2) POS, Anti-D [place] MethodistABO and Rh rdsvlqmgqkej6846-12-34 06:06:00 Test Item Value Reference Range Interpretation Comments ABO grouping (test code = 883-9) A Rh type (test code = 50763-6) NEG [place] MethodistB natriuretic [id number] 05:53:02 Test Item Value Reference Range Interpretation Comments BNP (test code = 20050-0) 56 pg/mL 0-100 [place] MethodistType and [id number] 03:03:00 Test Item Value Reference Range Interpretation Comments ABO grouping (test code = 883-9) A Rh type (test code = 59166-3) NEG Antibody screen (gel) (test code = POS 890-4) [place] MethodistUrinalysis screen and microscopy, with reflex to culture 2020-09-15 22:06:01 Test Item Value Reference Range Interpretation Comments Specimen site (test code = Catheterized 9997424) Color, UA (test code = 5778-6) Yellow Appearance, UA (test code = Clear 5767-9) Specific gravity, UA (test code 1.017 1.001-1.035 = 5811-5) pH, UA (test code = 5803-2) 5.0 5.0-8.5 Protein, UA (test code = Negative Negative 24313-7) Glucose, UA (test code = Negative Negative 48450-4) Ketones, UA (test code = 2514-8) Negative Negative Bilirubin, UA (test code = Negative Negative 5770-3) Blood, UA (test code = 5794-3) Negative Negative Nitrite, UA (test code = 5802-4) Negative Negative Urobilinogen, UA (test code = <2.0 <2.0 60838-0) Leukocyte esterase, UA (test Small Negative A code = 5799-2) Epithelial cells, UA (test code 2 /HPF = 5787-7) WBC, UA (test code = 5821-4) 32 0- 4 /HPF H RBC, UA (test code = 25646-3) 3 0- 5 /HPF Bacteria, UA (test code = Few None seen 16633-4) Yeast, UA (test code = 93331-3) None seen Yeast with pseudohyphae, UA None seen (test code = 95052-4) Hyaline casts, UA (test code = 20 /LPF 5796-8) Lab Interpretation (test code = Abnormal 01373-1) Darci JoyaHemoglobin [id number] 11:41:57 Test Item Value Reference Range Interpretation Comments Hemoglobin A1C (test 9.1 % 4-5.6 H HbA1c c utoffs for code = 88426-4) diagnosing diabetes:4.0% - 5.6% = normal5.7% - 6.4% = increased risk for diabetes (prediabetes)9> =6.5% = mnqlusoj9Rqch s for glycemic contro l (ADA 2016)< 7.0% Ta rget for non adults with ganesh betes. More or less stringent targe ts may be appropriate for individual tamar ents. <7.5% Target for Children and adolescents wit h type 1 diabetes. Lab Interpretation (test Abnormal code = 51196-9) Darci JoyaCOVID-19 qualitative [id number] 20:21:50 Test Item Value Reference Range Interpretation Comments Interpretation (test Negative results do code = 0677727) not preclude 2019-nCoV infection and should not be used as the sole basis for treatment or other patient management decisions. Negative results must be combined with clinical observations, patient history, and epidemiological information. COVID-19 qualitative Not-Detected Not-Detected PCR result (test code = 96563-7) COVID-19 qualitative See link below for C ase Number: PCR (test code = PDF Lab Report [id number]) Darci Mejía 12 [id number] 19:27:22 Test Item Value Reference Range Interpretation Comments Ventricular rate (test 93 code = 253) Atrial rate (test code 93 = 255) DE interval (test code 128 = 266) QRSD interval (test 74 code = 260) QT interval (test code 392 = 264) QTC interval (test code 487 = 265) QRS axis 1 (test code = -35 268) T wave axis (test code 48 = 270) EKG impression (test Sinus rhythm with code = 273) fusion complexes-Left axis deviation-Prolonged QT-Abnormal ECG-In automated comparison with ECG of 13-SEP-2020 08:14,-fusion complexes are now present-QRS axis shifted left- Darci DaleYbpljgepjLksbgarg6153-02-05 18:10:56 Test Item Value Reference Range Interpretation Comments Troponin (test code 0.012 ng/mL 0-0.04 In patie nts suspected = 60742-8) of having a rochelle cardial infarction, nelly davies with all other appro priate clinical measur es and actions includi ng ECG and other diagn ostics as appropriate, measure Ultra TnI at 0 hrs and at 3 hrs.Myocar dial infarction VERY LIKELYThe 0 hr TnI level is > 0.10 ng/mL -------- -------- -------- --------Myocard ial infarction LIKE LYThe 0 hr TnI level is > 0.04 ng/mL and 3 hr level is increased or de creased by at least 0.0 20 ng/mL -------- -------- -------- ---Myocardial infarction VERY UNLIKELYBoth th e 0 hr and 3 hr TnI le vels <= 0.04 ng/mL(with in normal limits) OR 0 hr is > 0.04 ng/mL and 3 hr is increased OR decreased by le ss than 0.020 ng/mL [facility] duplex venous lower owtwgglte4223-87-45 15:09:00Interface, Radiology Results In - 09/13/2020 3:09 PM [facility] Vascular Ultrasound Laboratory Lower Extremity Venous [address] [address] Pat.Name: FRANTZ WEATHERS Pat.ID: [id number] .Date: 09/13/2020 Refer.MD: CAS PATE MD, ALEX FRITZ MDExam Time: 10:32:00 AM Study Type:LE Venous Height: 62in Weight: 148lb BSA: 1.68 m2 Age: 3 1940,80Y Sex: FEMALE Sonogrphr: TITO Koroma, Tong Gutierrez, RDMS, RVTPat. Stat.:Inpatient Room: ED19 Tape Vol: CM, CPT - 4: 70047 Echo Event ID:[id number] Order ID: [id number] Reason for Study:Leg swelling or pain, DVT suspected. Patient has ahistory of lung mass, and HTNProcedures: Colorflow, Grayscale/2D, Pulsed wave Doppler-------- SUMMARY: DUPLEX SCAN OBSERVATIONS Deep Veins Superficial Veins Right Left Right Left GSV (prox) Normal NormalCFV Normal Normal (above knee)Femoral Normal GSV (dist) Normal Profunda Normal (below knee)Popliteal Normal PT (prox) Normal SSV Not Visualized PT (dist) Normal Peroneal Normal Gastrocs NormalRIGHT: There is normal compressibility with no evidence of echogenicmaterial noted within the lumen of the visualized veins. Color flowand Doppler signals are normal.LEFT: There is normal compressibility with no evidence of echogenicmaterial noted within the lumen of the common femoral vein. Color flowand Doppler signals are n ormal. PRELIMINARY FINDINGS:1. No evidence of venous thrombosis in the visualized veins.Results given to Dr. Parsons 1108PHYSICIAN INTERPRETATION: Venous examination of the right lower extremity and left groindemonstrated no evidence of venous thrombosis in the visualized veins. Normal compressibility and augmentation of all veins visualized. FINDINGS: Signed 09/13/2020 03:09 PMZsolt Chapin MD, RPVI Darci JoyaSC Lung Perfusion [id number] 13:53:35Hm Interface, Radiology Results - 09/13/2020 1:56 PM CSTPROCEDURE: SC LUNG PERFUSION IMAGINGINDICATION: PE suspected low pretest probCOMPARISON: Chest CT performed on same dayTECHNIQUE: Perfusion imaging in multiple projections was performed after intravenous administration of 5 mCi of Tc-99m labeled MAA. No ventilation imaging was performed.FINDINGS: A defect is seen in the left upper lobe corresponding to a mass in the comparison CT exam. Perfusion is diffusely reduced in the remainder of the left lung likely due to the presence of a moderate pleural effusion. Perfusion throughout the right lung is mildly heterogeneous. No suspicious segmental defects are seen. IMPRESSION:1.Low probability of acute pulmonary embolism.2.Perfusion defect in the left upper lobe corresponds to a lung mass. Please refer to the CT study report for details.[facility]-[id number] MethodistPartial thromboplastin time, activated 2020-09-13 09:09:09 Test Item Value Reference Range Interpretation Comments PTT (test code = 24.1 23.0- 36.0 [place] [address]-0) unfractionated heparin is61.0-112.0 se conds which corresponds to Anti-Xa0.3-0.7 U/ml. Darci JoyaProthrombin time with [id number] 09:08:33 Test Item Value Reference Range Interpretation Comments Prothrombin time (test 14.5 11.5- 14.5 sec code = 5902-2) INR (test code = 1.1 The Interna tional 51919-2) Normalized Rati o (INR) is a therapeutic m onitoring tool for patien ts who are stable on oral anticoagulant t herapy. An INR of 2.0-3.0 is suggested for d eep vein thrombosis/pulm onary embolism. [facility] ED Preliminary Interpretation - Not an Mvcyh8897-22-36 08:13:29 Test Item Value Reference Range Interpretation Comments JAIRO (test code = JAIRO) Alex Fritz MD 09/14/2020 6:44 [facility] ED Preliminary Interpretation - Not an OrderPerformed by: Alex Fritz MDAuthorized by: Alex Fritz MD ECG reviewed by ED Physician in the absence of a net coordinator: yes Interpretation: Interpretation: abnormal Rate: ECG rate: 88 ECG rate assessment: normal Rhythm: Rhythm: sinus rhythm Ectopy: Ectopy: PVCs PVCs: FrequentQRS: QRS axis: Normal QRS intervals: NormalConduction: Conduction: normal ST segments: ST segments: NormalT waves: T waves: normal Comments: Prolonged QT Lab Interpretation Abnormal (test code = 09406-8) [place] MethodmillyCT Chest External [id number] 10:45:49This exam was not acquired at a [facility] facility and has not been interpreted by a [facility] Provider. The exam was imported into our imaging system.[place] RylanistNM Bone Scan External [id number] 10:45:27This exam was not acquired at a [facility] facility and has not been interpreted by a [facility] Provider. The exam was imported into our imaging system.[place] MethodistPET/CT Whole Body External [id number] 10:45:06This exam was not acquired at a [facility] facility and has not been interpreted by a [facility] Provider. The exam was imported into our imaging system.[facility]
--- OUTSIDE RECORDS SUMMARY | 2020-10-30 14:45 | XMS REPORT | Summary of Care ---
:1940 Author Organization [facility] Address [address] [place] [address] Care Team Providers Name Role Phone Rachel Clemente Primary Care Provider Reason for Visit Reason Comments Follow-up Ekg Encounter Details Date Type Department Care Team Description 10/18/2020 Office Visit [facility] Hen[place], Sendil Essential hyp ertension (Primary Dx); Cardiology- Mainor Pacheco MD Dyslipidemia; [address] [place] [address] Carotid artery disease, unspecified late rality; Drive, [address] [place] 106 Type 2 diabetes mellitus without complic ation, with long-term current use of insulin; [place], [place] BUNN (dyspnea on exertion) [id number] Allergies Active Allergy Reactions Severity Noted Date Comments Iodine Hives 05/18/2017 documented as of this encounter (statuses as of 10/21/2020) Medications Medication Sig Dispensed Refills Start Date End Date Status anastrozole 1 mg Take 1 mg by mouth 0 Active tablet daily. Insulin Use as directed 1 Box 1 08/26/2017 Act lona Syringe-Needle U-100 1 mL 31 gauge x 03/16 Syrg magnesium oxide 400 Take 1 tablet by 120 tablet 0 09/21/2018 Active mg (241.3 mg mouth 4 (four) magnesium) tablet times daily. Additional Information Patient taking differently: 400 mg Oral TID, Reported on 01/31/2019 1:30 PM pravastatin 20 mg Take 1 tablet 30 tablet 2 02/01/2019 Active tablet by mouth at bedtime. meclizine 25 mg Take 1 tablet 20 tablet 0 07/13/2019 Active tabletIndications: by mouth every Dizziness 6 (six) hours as needed for Dizziness. escitalopram oxalate Take 10 mg by 0 11/02/2019 Active 10 mg tablet mouth daily. levothyroxine 25 mcg Take 1 tablet 90 tablet 1 11/22/2019 Active tabletIndications: by mouth every Primary morning. hypothyroidism losartan 50 mg Take 1 tablet 180 tablet 2 03/01/2020 Active tabletIndications: by mouth 2 Pedal edema, (two) times Essential daily. hypertension, Dyslipidemia, Type 2 diabetes mellitus without complication, with long-term current use of insulin, Carotid artery disease, unspecified laterality insulin aspart U-100 inject 7 Units 3 Syringe 1 03/26/2020 Active (NOVOLOG FLEXPEN under the skin U-100 INSULIN) 100 3 (three) times unit/mL (3 mL) daily before injectionIndications: meals. Type 2 diabetes mellitus without complication, with long-term current use of insulin insulin degludec inject 36 Units 50 mL 1 03/26/2020 Active (TRESIBA FLEXTOUCH under the skin U-100) 100 unit/mL (3 daily. mL) InPnIndications: Type 2 diabetes mellitus without complication, with long-term current use of insulin flash glucose sensor 1 Kit every 14 6 Kit 1 09/10/2020 Active (FREESTYLE STAN 14 (fourteen) DAY SENSOR) Kit days. DX E11.21 CARVEDILOL 6.25 mg TAKE 1 TABLET 180 tablet 0 10/01/2020 Active tablet BY MOUTH TWICE DAILY WITH MEALS Blood-Glucose Use as 1 Each 0 09/24/2020 Activ e Meter,Continuous directed. (DEXCOM G6 DIPPER OPERATOR) DX:E11.21 Misc Blood-Glucose Use as 1 Each 0 09/24/2020 Activ e Transmitter (DEXCOM directed. G6 TRANSMITTER) Cecile DX:E11.21 Blood-Glucose Sensor Use 1 sensor 9 Each 1 09/24/2020 Active (DEXCOM G6 SENSOR) every 10 days. Cecile DX:E11.21 cloNIDine 0.1 mg Take 1 tablet 270 tablet 2 10/18/2020 Active tabletIndications: by mouth 3 021 Essential (three) times hypertension, daily for 90 Dyslipidemia, Carotid days. artery disease, unspecified laterality, Type 2 diabetes mellitus without complication, with long-term current use of insulin, BUNN (dyspnea on exertion) furosemide 40 mg Take 40 mg by 0 02/21/2020 Discontinued tablet mouth daily. 020 CLONIDINE 0.1 mg TAKE 1 TABLET 90 tablet 0 09/20/2020 Discontinued tablet BY MOUTH THREE 020 (Reor chino) TIMES DAILY documented as of this encounter (statuses as of 10/21/2020) Active Problems Problem Noted Date Dizziness 07/13/2018 PVC (premature ventricular contraction) 07/13/2018 Hypertensive urgency 07/13/2018 Urinary tract infection without hematuria 07/13/2018 Bigeminy 07/12/2018 Dyslipidemia 08/24/2017 Type 2 diabetes mellitus without complication, with lo ng-term current use 05/18/2017 of insulin Primary hypothyroidism 05/18/2017 Essential hypertension 05/18/2017 documented as of this encounter (statuses as of 10/21/2020) Immunizations Name Administration Dates Next Due Influenza High Dose 09/01/2019 documented as of this encounter Social History Tobacco Use Types Packs/Day Years Used Date Never Smoker Smokeless Tobacco: Never Used Alcohol Use Drinks/Week oz/Week Comments No Sex Assigned at Date Recorded Not on file COVID-19 Exposure Response Date Recorded In the last month, have you been in contact with No / Unsure 10/18/2020 4:39 PM ARMATURE TESTER someone who was confirmed or suspected to have Coronavirus / COVID-19? documented as of this encounter Last Filed Vital Signs Vital Sign Reading Time Taken Comments Blood Pressure 162/82 10/18/2020 4:39 PM ARMATURE TESTER Pulse 72 10/18/2020 4:39 PM ARMATURE TESTER Temperature - - Respiratory Rate 19 10/18/2020 4:39 PM ARMATURE TESTER Oxygen Saturation 96% 10/18/2020 4:39 PM ARMATURE TESTER Inhaled Oxygen Concentration - - Weight 65.9 kg (145 lb 3.2 oz) 10/18/2020 4:39 PM ARMATURE TESTER Height 157.5 cm (5' 2") 10/18/2020 4:39 PM ARMATURE TESTER Body Mass Index 26.56 10/18/2020 4:39 PM ARMATURE TESTER documented in this encounter Progress Notes Thomas Henley MD - 10/18/2020 11:30 AM CST CARDIOLOGY CLINIC NOTE Reason for Referral/Presenting Complaint: HTN PCP: Best Clemente History of Present Illness: Dahiana Smith is a 80 years old female with history of DM and HTN, presented to clinic for followup for BUNN/HTN. Patient is here by herself. Since last OV, she underwent lung evaluation was noted to have lung cancer. Prior to the procedure she underwent stress test which was reported to be normal hence she was cleared for the surgery. She reports she was diagnosed to have stage IV lung cancer. Following up with oncology. Reports BP better controlled. BUNN NYHA Class II. Edema resolved. No history of exertional chest pain. No chest pain at rest. No PND or orthopnea. No exertional palpitations or palpitations at rest. No syncopal attacks She has been treated for HTN for 20 years. Used to take losartan alone with good control. Recently it has been more elevated. In 2017 when she was in [place] she went to ER with SBP 200 mmHg. Cardiovascular testing: ECG 10/2020 Normal sinus rhythm Normal ECG When compared with ECG of 13-JUL-2019 17:14, QRS duration has decreased Criteria for Inferior infarct are no longer Present NM Stress test 09/2020 IMPRESSION 1. The patient's electrocardiogram is nonischemic. 2. The patient's clinical response is asymptomatic for angina. 3. Overall left ventricular systolic function is normal. 4. SPECT imaging reveals normal uptake of radiopharmaceutical agents in all of wall segments in both stress and rest images. 5. No reversible defect. NM Stress 09/2020 IMPRESSION 1. The patient's electrocardiogram is nonischemic. 2. The patient's clinical response is asymptomatic for angina. 3. Overall left ventricular systolic function is normal. 4. SPECT imaging reveals normal uptake of radiopharmaceutical agents in all of wall segments in both stress and rest images. 5. No reversible defect. ECG 07/2019 Normal sinus rhythm Left axis deviation Inferior infarct (cited on or before 13-JUL-2018) Abnormal ECG EK07/2018 Normal sinus rhythm. LAD. ECHO 07/2018 Interpretation Summary The study was technically adequate. There is no comparison study available. Ejection Fraction = 60-65%. Diastolic function is pseudonormal. The left ventricular wall motion is normal. Estimated RA pressure is 0-5 mmHg. Right ventricular systolic pressure is normal. Echo 04/2020 There is no pericardial effusion. The pericardium appears normal. Interpretation Summary A two-dimensional transthoracic echocardiogram with M-mode and Doppler was performed. The study was technically adequate. Compared to prior study, there is no significant change. Ejection Fraction = 60-65%. Diastolic function is pseudonormal. The left ventricular wall motion is normal. Estimated RA pressure is 0-5 mmHg. Insufficient Tricuspid regurgitation jet to estimate RVSP, but probably normal. Renal artery duplex 09/2017 No renal artery stenosis 01/2018--Carotid duplex--Elevated velocity in bilateral carotid arteries likely due to tortuosity Review of Systems: General: (-) fever, (-) chills, (-) weight change, (+) dizziness, (-) fatigue Skin: (-) rash HEENT: (-) headache, (-) change in vision Neck: (-) difficulty swallowing Heme: negative Resp: (-) cough, (-) dyspnea on exertion Cardio: (-) chest pain, (-) palpitations, (-) syncope GI: (-) vomiting, (-) diarrhea : negative Endo: (-) diabetes, (-) thyroid disease Neuro: (-) numbness, (-) tingling, (-) weakness Back: (-) pain VENKATA: (-) muscle pain, (-) claudication Psych: (-) anxiety, (-) depression Past Medical History: Past Medical History: Diagnosis Date Breast cancer double mastectomy Diabetes mellitus Current Medications: Current Outpatient Medications Medication Sig Dispense Refill cloNIDine 0.1 mg tablet Take 1 tablet by mouth 3 (three) times daily for 90 days. 270 tablet 2 CARVEDILOL 6.25 mg tablet TAKE 1 TABLET BY MOUTH TWICE DAILY WITH MEALS 180 tablet 0 losartan 50 mg tablet Take 1 tablet by mouth 2 (two) times daily. 180 tablet 2 pravastatin 20 mg tablet Take 1 tablet by mouth at bedtime. 30 tablet 2 Blood-Glucose Meter,Continuous (DEXCOM G6 DIPPER OPERATOR) Misc Use as directed. DX:E11.21 1 Each 0 Blood-Glucose Sensor (DEXCOM G6 SENSOR) Cecile Use 1 sensor every 10 days. DX:E11.21 9 Each 1 Blood-Glucose Transmitter (DEXCOM G6 TRANSMITTER) Cecile Use as directed. DX:E11.21 1 Each 0 flash glucose sensor (FREESTYLE STAN 14 DAY SENSOR) Kit 1 Kit every 14 (fourteen) days. DX E11.21 6 Kit 1 insulin aspart U-100 (NOVOLOG FLEXPEN U-100 INSULIN) 100 unit/mL (3 mL) injection inject 7 Unitsunder the skin 3 (three) times daily before meals. 3 Syringe 1 insulin degludec (TRESIBA FLEXTOUCH U-100) 100 unit/mL (3 mL) InPn inject 36 Units under the skin daily. 50 mL 1 escitalopram oxalate 10 mg tablet Take 10 mg by mouth daily. levothyroxine 25 mcg tablet Take 1 tablet by mouth every morning. 90 tablet 1 meclizine 25 mg tablet Take 1 tablet by mouth every 6 (six) hours as needed for Dizziness. 20 tablet 0 magnesium oxide 400 mg (241.3 mg magnesium) tablet Take 1 tablet by mouth 4 (four) times daily. (Patient taking differently: Take 400 mg by mouth 3 (three) times daily.) 120 tablet 0 Insulin Syringe-Needle U-100 1 mL 31 gauge x 5/16 Syrg Use as directed 1 Box 1 anastrozole 1 mg tablet Take 1 mg by mouth daily. No current facility-administered medications for this visit. Social History: Social History Socioeconomic History Marital status: Spouse name: Not on file Number of children: Not on file Years of education: Not on file Highest education level: Not on file Occupational History Not on file Social Needs Financial resource strain: Not on file Food insecurity Worry: Not on file Inability: Not on file Transportation needs Medical: Not on file Non-medical: Not on file Tobacco Use Smoking status: Never Smoker Smokeless tobacco: Never Used Substance and Sexual Activity Alcohol use: No Drug use: No Sexual activity: Not on file Lifestyle Physical activity Days per week: Not on file Minutes per session: Not on file Stress: Not on file Relationships Social connections Talks on phone: Not on file Gets together: Not on file Attends evangelical service: Not on file Active member of club or organization: Not on file Attends meetings of clubs or organizations: Not on file Relationship status: Not on file Intimate partner violence Fear of current or ex partner: Not on file Emotionally abused: Not on file Physically abused: Not on file Forced sexual activity: Not on file Other Topics Concern Not on file Social History Narrative Not on file Family History Family History Adopted: Yes Problem Relation Age of Onset Non-contributory Mother Physical Examination: BP (!) 162/82 (BP Location: Left arm, Patient Position: Sitting, BP CUFF SIZE: Adult Medium) | Pulse 72 | Resp 19 | Ht 5' 2" (1.575 m) | Wt 145 lb 3.2 oz (65.9 kg) | SpO2 96% | BMI 26.56 kg/m General: no apparent distress HEENT: normocephalic atraumatic Neck: supple, no lymphadenopathy, no bruits, no JVD Lungs: clear to auscultation bilaterally. No wheezes or rhonchi. No increased work of breathing. Cardio: Regular rate and rhythm, S1&S2 normal, no murmurs, rubs or gallops Abdomen: soft; non-tender; non-distended; normoactive bowel sounds. : not examined Rectal: not examined Extremities: no clubbing, cyanosis, or edema. Skin: no rashes, no visible lesions. Neuro: no gross focal deficits Assessment/Plan: ICD-10-CM ICD-9-CM 1. Essential hypertension I10 401.9 2. Dyslipidemia E78.5 272.4 3. Carotid artery disease, unspecified laterality I77.9 447.9 4. Type 2 diabetes mellitus without complication, with long-term current use of insulin E11.9 250.00 Z79.4 V58.67 5. BUNN (dyspnea on exertion) R06.00 786.09 Dizzy spells: Resolved with no recurrence. Recommend increase free water intake. Home standing BP log. Diastolic dysfunction/BUNN NYHA Class II: Stable. Recommend daily weights. Continue Lasix 40 mg PRN. Echo/NM stress stress test results reviewed with her. HTN: Stable. Currently on Coreg 6.25 mg BiD/Clonidine 0.1 TiD/losartan 50 BiD. Off Norvasc 10 mg, Home BP log recommended. Cross check his BP machine. Appropriate ways to check home BP discussed. Goals BP < 150/90 stressed. Explained if BP > 150/90, adviced to send us the log. Lifestyle modifications stressed. Dyslipidemia: Recommended to keep LDL < 100. Lifestyle modifications stressed. Currently on Pravastatin 20 mg daily. Plan for labs as ordered. LDL CHOL (mg/dL) Date Value 04/18/2020 79 [id number] (mg/dL (calc)) Date Value 09/03/2017 55 T2DM: Follows PCP/Endo. Recently diagnosed stage IV lung cancer. Following up with oncology. Follow up in 4-5 months. No orders of the defined types were placed in this encounter. Requested Prescriptions Signed Prescriptions Disp Refills cloNIDine 0.1 mg tablet 270 tablet 2 Sig: Take 1 tablet by mouth 3 (three) times daily for 90 days. We discussed each of for cardio vascular-related problems and discuss long-term goals and expectations for the each problem. I reviewed each of her cardiac medications in detail. The diagnostic accuracy and limitation of stress testing for identification of coronary artery disease were reviewed in detail. Reviewed the medication with patient in detail recommended to continue taking the current medications without further changes. Recommended goal BP < 150/90 consistently, LDL << 70, HbA1c < 6.5. Recommended, explained and stressed the importance of healthy eating habits and exercises and lifestyle modifications Follow up as planned or earlier if there any new symptoms. My diagnostic impression and treatment plans were discussed at length with the patient and family member present. All side effects as well as drug-drug interactions and risks discussed at length. All questions answered. ER warning signs and symptoms explained and patient verbalized understanding. We reviewed the [place] [employer] recommendations for reduction of overall cardio vascular risk. The importance of monitoring the blood pressure carefully both at home on regular basis along with other physicians appointment was stressed in detail. In addition we discussed target LDL levels for optimal risk reduction. It was advised that to daily physical activity be performed with 30 minutes of sustained exercise for both cardio vascular fitness and improvement for generalized medical health and well-being. Hemanth Henley MD Addictions Therapist, Division of Cardiology [facility] TURE TESTER documented in this encounter Plan of Treatment Date Type Specialty Care Team Description 10/29/2020 Office Visit Endocrinology Diabetes & Garry Crawford MD Metabolism [address] [place] [address] [phone] 02/20/2021 Office Visit Cardiology Thomas [facility]ley MD [facility] [address] [facility] [address] [place] [address] [place] [phone] Health Maintenance Due Date Last Done Comments DTaP,Tdap,and Td Vaccines (1 - 01/04/1959 Tdap) Zoster Recombinant Vaccine 01/04/1990 (SHINGRIX) (1 of 2) Medicare Wellness Visit 01/04/2005 PNEUMOCOCCAL VACCINES 65+ (1 of 1 01/04/2005 - PPSV23) EYE EXAM 04/28/2020 04/28/2019 HgA1C 05/22/2020 11/22/2019, 07/11/2019, 01/31/2019, Additional history exists INFLUENZA VACCINE (#1) 2020 09/01/2019 FOOT EXAM 11/22/2020 11/22/2019, 11/22/2019, 07/11/2019, Additional history exists URINE MICROALBUMIN 11/24/2020 11/24/2019 CREATININE (SERUM) 04/18/2021 04/18/2020, 09/05/2019, 07/13/2019, Additional history exists LDL-C 04/18/2021 04/18/2020, 09/05/2019, 01/31/2019, Additional history exists Depression Screening 06/17/2021 06/17/2020 Osteoporosis Screening 04/26/2029 04/26/2019 documented as of this encounter Procedures Procedure Name Priority Date/Time Associated Diagnosis Comme nts [place] ELECTROCARDIOGRAM, Routine 10/18/2020 4:30 PM Essent ial hypertension COMPLETE ARMATURE TESTER Dyslipidemia Carotid artery disease, unspecified late rality Type 2 diabetes mellitus without complication, with long-term current use of insulin BUNN (dyspnea on exertion) documented in this encounter Results Not on filedocumented in this encounter Visit Diagnoses Diagnosis Essential hypertension - Primary Unspecified essential hypertension Dyslipidemia Other and unspecified hyperlipidemia Carotid artery disease, unspecified late rality Type 2 diabetes mellitus without complic ation, with long-term current use of insulin BUNN (dyspnea on exertion) Other dyspnea and respiratory abnormalit y documented in this encounter Insurance Payer Benefit Plan / Subscriber ID Effective Phone Address T ype Group Dates [facility] [id number] 2020-Pres Medic are Adv HEALTHCARE - HEALTHCARE ent PPO MANAGED MEDICARE SILVER [employer]ICARE documented as of this encounter
--- OUTSIDE RECORDS SUMMARY | 2020-10-30 14:46 | XMS REPORT | Summary of Care ---
:1940 Author Organization [facility] Address [address] [place] [address] Care Team Providers Name Role Phone Rachel Clemente Primary Care Provider Reason for Visit Reason Comments Follow-up Ekg Encounter Details Date Type Department Care Team Description 10/18/2020 Office Visit [facility] [place], Sendil Essential hyp ertension (Primary Dx); Cardiology- Mainor Pacheco MD Dyslipidemia; [address] [place] [address] Carotid artery disease, unspecified late rality; Drive, [address] [place] 106 Type 2 diabetes mellitus without complic ation, with long-term current use of insulin; [place], [place] BUNN (dyspnea on exertion) [phone] [...] 09/24/2020 Activ e Meter,Continuous directed. (DEXCOM G6 LEAD MAN OVER ALL DIES IN PATTERN SHOP) DX:E11.21 Misc Blood-Glucose Use as 1 Each [...] with No / Unsure 10/18/2020 4:39 PM COUNTY SUPERVISOR someone who was confirmed or suspected to have Coronavirus / COVID-19? documented as of this encounter Last Filed Vital Signs Vital Sign Reading Time Taken Comments Blood Pressure 162/82 10/18/2020 4:39 PM COUNTY SUPERVISOR Pulse 72 10/18/2020 4:39 PM COUNTY SUPERVISOR Temperature - - Respiratory Rate 19 10/18/2020 4:39 PM COUNTY SUPERVISOR Oxygen Saturation 96% 10/18/2020 4:39 PM COUNTY SUPERVISOR Inhaled Oxygen Concentration - - Weight 65.9 kg (145 lb 3.2 oz) 10/18/2020 4:39 PM COUNTY SUPERVISOR Height 157.5 cm (5' 2") 10/18/2020 4:39 PM COUNTY SUPERVISOR Body Mass Index 26.56 10/18/2020 4:39 PM COUNTY SUPERVISOR documented in this encounter Progress Notes Thomas [...] 30 tablet 2 Blood-Glucose Meter,Continuous (DEXCOM G6 LEAD MAN OVER ALL DIES IN PATTERN SHOP) Misc Use as directed. DX:E11.21 1 Each [...] file Gets together: Not on file Attends temple service: Not on file Active member of [...] LDL CHOL (mg/dL) Date Value 04/18/2020 79 [id number] (mg/dL (calc)) Date Value 09/03/2017 55 T2DM: [...] and patient verbalized understanding. We reviewed the [place] Heart [employer] recommendations for reduction of overall [...] medical health and well-being. Hemanth Henley MD Client Services Representative, Division of Cardiology [facility] TY SUPERVISOR documented in this encounter Plan of Treatment Date Type Specialty Care Team Description 10/29/2020 Office Visit Endocrinology Diabetes & Garry Crawford MD Metabolism [address] [place] [address] [phone] 02/20/2021 Office Visit Cardiology Thomas [facility] MD [facility] [address] [facility] [address] [place] [address] [place] [phone] Health Maintenance Due Date Last Done [...] Name Priority Date/Time Associated Diagnosis Comme nts [place] ELECTROCARDIOGRAM, Routine 10/18/2020 4:30 PM Essent ial hypertension COMPLETE COUNTY SUPERVISOR Dyslipidemia Carotid artery disease, unspecified late rality [...] Effective Phone Address T ype Group Dates [facility] [id number] 2020-Pres Medic are Adv HEALTHCARE - HEALTHCARE ent PPO MANAGED MEDICARE SILVER MEDICARE documented as of this encounter
[2020-10-30 15:22] LABS: Absolute Lymphocytes (CBC) 2.3 K/uL (0.7-4.9); Lymphocytes % 24.3 % (15.3-44.8); MPV 9.3 fL (7.6-11.3); RBC Red Blood Cell Count 5.37 M/uL (3.86-4.86)
[2020-10-30] MEDS ORDERED: NA CHLORIDE 0.9% 2,000 ML ONE (15:23)
[2020-10-30 15:25] LABS: Protime INR 1.06
[2020-10-30 15:32] LABS: ALT/SGPT 12 U/L (12-78); AST/SGOT 11 U/L (15-37); Albumin 3.4 g/dL (3.4-5.0); Alkaline Phosphatase 98 U/L (45-117); Amylase 21 U/L (25-115); BUN Blood Urea Nitrogen 24 mg/dL (7-18); Bicarbonate 31 mmol/L (21-32); Bilirubin Direct < 0.1 mg/dL (0-0.2); Bilirubin Total 0.3 mg/dL (0.2-1.0); Creatine Phosphokinase 21 U/L (26-192); Glucose Level 261 mg/dL (74-106); Lipase 54 U/L (73-393); Potassium 4.2 mmol/L (3.5-5.1); Protein, Total 7.4 g/dL (6.4-8.2); Sodium Level 137 mmol/L (136-145); Troponin (Emerg Dept Use Only) < 0.02 ng/mL (0.0-0.045)
--- NOTE | 2020-10-30 15:48 | RAD REPORT ---
EXAM DESCRIPTION: RAD - Chest Single View - 10/30/2020 3:38 pm CLINICAL HISTORY: SYNCOPE Chest pain. COMPARISON: Chest Pa And Lat (2 Views) dated 12/09/2017; Chest Pa And Lat (2 Views) dated 09/29/2017; Chest Pa And Lat (2 Views) dated 09/07/2016; CHEST SINGLE VIEW dated 04/07/2013; Brain W/Wo Cont dated 11/10/2019; Ct Skull/Thigh dated 08/29/2020; Bone Imaging Whole Body dated 08/16/2020; Chest Abd Pelvi s Wo Con dated 08/16/2020 FINDINGS: Portable technique limits examination quality. The right lung is grossly clear. Moderate left pleural effusion is seen with evidence of loculation. Significant pulmonary also seen involving the left lung base. The heart is normal in size.
[2020-10-30 16:06] LABS: Urine Bacteria <20 /HPF (<20); Urine RBC <5 /HPF (NONE SEEN)
--- NOTE | 2020-10-30 16:27 | RAD REPORT ---
EXAM DESCRIPTION: CT - Head Brain Wo Cont - 10/30/2020 4:15 pm CLINICAL HISTORY: SYNCOPE Headache, drowsiness COMPARISON: HEAD BRAIN W O CONTRAST dated 04/07/2013 TECHNIQUE: All CT scans are performed using dose optimization technique as appropriate and may inclu de automated exposure control or mA/KV adjustment according to patient size. FINDINGS: No intracranial hemorrhage, hydrocephalus or extra-axial fluid collection.Moderate diffuse generalized brain atrophy.No areas of brain edema or evidence of midline shift. The paranasal sinuses and mastoids are clear. The calvarium is intact. IMPRESSION: No acute intracranial abnormality.
--- NOTE | 2020-10-30 16:39 | RAD REPORT ---
EXAM DESCRIPTION: CT - Chest Abd Pelvis Wo Con - 10/30/2020 4:15 pm CLINICAL HISTORY: Chest and abdomen pain. syncope COMPARISON: Chest Abd Pelvis Wo Con dated 08/16/2020; Bone Imaging Whole Body dated 08/16/2020; Ct S kull/Thigh dated 08/29/2020; Brain W/Wo Cont dated 09/10/2020 TECHNIQUE: Limited noncontrast study was performed. All CT scans are performed using dose optimization technique as appropriate and may include automated exposure control or mA/KV adjustment according to patient size. FINDINGS: Small bulla is present in medial right apex.Irregular soft tissue density lesion is noted in the left upper lobe. This likely represents the patient's known malignancy in this region however detailed assessment is difficult due to surrounding pleural fluid which renders the margins of the le emmy somewhat difficult to ascertain on noncontrast study.There is a moderate to large left pleural e ffusion present with loculation noted posteriorly as well as laterally and superiorly extending anter iorly.Pleural thickening is seen extending anteriorly along the left anterior hemithorax is well. Several enlarged lymph nodes are seen in the mediastinum, including prevascular space measuring 7 mm, pretracheal region measuring 11 mm and anterior to the ralph measuring 9 mm. Overall, there has bee n mild reduction in the size of the lymph nodes since the comparative study. Poorly defined soft tissue in the left hilar region also present, somewhat difficult to define due to the noncontrast nature of the study. The liver, spleen, pancreas, adrenal glands and kidneys are within normal limits. No bowel obstruction, free air, free fluid or abscess. Significant retention of stool throughout the colon. A few mildly prominent lymph nodes are seen left para-aortic location. Mild acute compression fracture is seen involving the L3 vertebral body, with estimated loss of verte bral body height of 10-15%. IMPRESSION: Mild acute anterior wedge compression fracture affects the L3 vertebral body.Loss of gabby tebral body height is estimated at 15%. No canal compromise. Although this probably represents an ost eoporotic fracture, given the patient's known cancer history, consider nonemergent MRI lumbar spine f ollowup without and with contrast to exclude underlying pathologic bone process. Moderate to large loculated left pleural effusion is seen with poorly defined left lung malignancy ag ain noted. Detailed assessment is limited due to the noncontrast nature of the study. Mild reduction in size of mediastinal adenopathy since comparative CT study dated 08/16/2020.
--- NOTE | 2020-10-30 17:11 | ER ---
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 Coronavirus screen: Client denies travel out of the [place] in the last 14 days. At this time, the client does not indicate any symptoms associated with coronavirus-19. Ebola Screen: No symptoms or risks identified at this time. Initial Sepsis Screen: Does the patient meet any 2 criteria? No. Patient's initial sepsis screen is negative. Does the patient have a suspected source of infection? No. Patient's initial sepsis screen is negative. Risk Assessment: Do you want to hurt yourself or someone else? Patient reports no desire to harm self or others. Onset of symptoms was October 30, 2020. Care prior to arrival: Medication(s) given: NARCAN IV initiated. 22 GA, in the right hand, Glucose check: 360. Transition of care: patient was not received from another setting of care. 14:27 Method Of Arrival: EMS: [place] [id number] 14:27 Acuity: DULCE 2 jl7 Triage Assessment: 14:27 General: Appears in no apparent distress. comfortable, Behavior is calm, drowsy. Pain: bp Denies pain. EENT: No deficits noted. Neuro: Level of Consciousness is awake, obeys commands, lethargic, Oriented to person, place, time, situation, Appropriate for age. Cardiovascular: No deficits noted. Respiratory: No deficits noted. GI: No signs and/or symptoms were reported involving the gastrointestinal system. : No signs and/or symptoms were reported regarding the genitourinary system. Derm: No deficits noted. Musculoskeletal: No deficits noted. Historical: - Allergies: 14:30 No Known Allergies; bp - PMHx: 14:30 Cancer; Diabetes - IDDM; bp - Immunization history:: Adult Immunizations up to date. - Social history:: Smoking status: Patient denies any tobacco usage or history of. Screenin:29 Abuse screen: Denies threats or abuse. Denies injuries from another. Nutritional bp screening: No deficits noted. Tuberculosis screening: No symptoms or risk factors identified. Fall Risk None identified. Assessment: 14:29 General: SEE TRIAGE NOTE. bp 15:40 Reassessment: No changes from previously documented assessment. Patient and/or family bp updated on plan of care and expected duration. Pain level reassessed. Patient is alert, oriented x 3, equal unlabored respirations, skin warm/dry/pink. 16:47 Reassessment: No changes from previously documented assessment. Patient and/or family bp updated on plan of care and expected duration. Pain level reassessed. Patient is alert, oriented x 3, equal unlabored respirations, skin warm/dry/pink. PT RETURNED FROM CT. ALL CURRENT ORDERS COMPLETED. 17:22 Reassessment: No changes from previously documented assessment. Patient and/or family bp updated on plan of care and expected duration. Pain level reassessed. Patient is alert, oriented x 3, equal unlabored respirations, skin warm/dry/pink. ADMIT INITIATED. 18:07 Reassessment: PT SEEN BY HOSPITALIST. SEE [facility]. bp Vital Signs: 14:33 BP 74 / 49; Pulse 55; Resp 17; Temp 97.8; Pulse Ox 93% ; Weight 68.04 kg; bp 15:39 BP 96 / 46; Pulse 56; Resp 15; Pulse Ox 98% ; bp 16:44 BP 114 / 63; Pulse 60; Resp 18; Temp 97.4(O); Pulse Ox 95% on R/A; mh5 17:23 BP 114 / 64; Pulse 57; Resp 18; Pulse Ox 94% ; bp 18:00 BP 126 / 65; Pulse 58; Resp 16; Pulse Ox 96% ; bp 19:47 BP 106 / 58; Pulse 57; Resp 17; Pulse Ox 96% on R/A; ea 20:01 BP 106 / 58; Pulse 58; Resp 16; Temp 98; Pulse Ox 96% ; rv ED Course: 14:27 Patient arrived in ED. em1 14:27 Best Miller, RN is Primary Nurse. bp 14:29 Arm band placed on. bp 14:29 Patient has correct armband on for positive identification. Placed in gown. Bed in low bp position. Call light in reach. Side rails up X2. Adult w/ patient. 14:30 Triage completed. jl7 14:32 Maintain EMS IV. Dressing intact. Good blood return noted. Site clean \T\ dry. Gauge \T\ bp site: 22 G R HAND. 14:39 Yimi Martinez MD is Attending Physician. kdr 14:45 Initial lab(s) drawn, by ED staff, sent to lab. Inserted saline lock: 18 gauge in right jl7 antecubital area, using aseptic technique. Blood collected. 15:29 Urine collected: Rodriguez catheter specimen, clear. 5 15:38 Chest Single View XRAY In Process Unspecified. EDMS 16:15 CT Head Brain wo Cont In Process Unspecified. EDMS 16:15 Chest Abd Pelvis Wo Con In Process Unspecified. EDMS 17:09 Jeannine Zimmerman MD is Hospitalizing Provider. kdr 19:23 Primary Nurse role handed off by Best Miller, JONAS 19:44 Yi Urrutia, JONAS is Primary Nurse. ea 19:48 No provider procedures requiring assistance completed. Patient admitted, IV remains in ea place. Administered Medications: 15:10 Drug: NS 0.9% (30 ml/kg) 30 ml/kg Route: IV; Rate: bolus; Site: right antecubital; bp Outcome: 17:11 Decision to Hospitalize by Provider. kdr 19:48 Condition: stable ea 19:48 Instructed on the need for admit, Demonstrated understanding of instructions. 20:00 Admitted to Med/surg accompanied by nurse, via stretcher, room 228, Other sbar, ekg rv Report called to rogers mcdaniel 20:05 Patient left the ED. rv Signatures: Dispatcher [employer] EDMS Yimi Martinez MD MD kdr Martinez, Eric em1 Henrietta Gallego, JONAS MCDANIEL [facility] Severo Tamez RN RN jl7 Yi Urrutia, Best Whelan RN, ea, RN RN Cooper Toro, RN RN rv Corrections: (The following items were deleted from the chart) 14:54 14:33 BP 74 / 49; Pulse 55bpm; Resp 17bpm; Pulse Ox 93%; Temp 97.8F; bp bp
--- NOTE | 2020-10-30 17:11 | EDPHYS ---
Physician Documentation [facility] Name: Dahiana Smith Age: 80 yrs Sex: Female : 1940 Arrival Date: 10/30/2020 Time: 14:27 Bed 3 Private MD: ED Physician Yimi Martinez HPI: 10/30 19:05 This 80 yrs old Female presents to ER via EMS with complaints of kdr AMS/unrepsonsive. 19:05 The patient had been found unresponsive by at home. he thinks she may have been kdr out for about 30 minutes. When he tried to arouse her, she was not responsive. When EMS arrived, she was poorly responsive and she was given 2 mg of Narcan and rapidly became more responsive. She has no c/o in the ED but appears to be slightly altered and she has slurred speech. Onset: The symptoms/episode began/occurred suddenly, just prior to arrival, today. Severity of symptoms: At their worst the symptoms were incapacitating in the emergency department the symptoms have improved markedly. The patient has not experienced similar symptoms in the past. It is unknown whether or not the patient has recently seen a physician. Historical: - Allergies: 14:30 No Known Allergies; bp - PMHx: 14:30 Cancer; Diabetes - IDDM; bp - Immunization history:: Adult Immunizations up to date. - Social history:: Smoking status: Patient denies any tobacco usage or history of. ROS: 19:05 Constitutional: Negative for fever, chills, and weight loss, Eyes: Negative for injury, kdr pain, redness, and discharge, ENT: Negative for injury, pain, and discharge, Neck: Negative for injury, pain, and swelling, Cardiovascular: Negative for chest pain, palpitations, and edema, Respiratory: Negative for shortness of breath, cough, wheezing, and pleuritic chest pain, Abdomen/GI: Negative for abdominal pain, nausea, vomiting, diarrhea, and constipation, Back: Negative for injury and pain, : Negative for injury, bleeding, discharge, and swelling, MS/Extremity: Negative for injury and deformity, Skin: Negative for injury, rash, and discoloration, Psych: Negative for depression, anxiety, suicide ideation, homicidal ideation, and hallucinations, Allergy/Immunology: Negative for hives, rash, and allergies, Endocrine: Negative for neck swelling, polydipsia, polyuria, polyphagia, and marked weight changes, Hematologic/Lymphatic: Negative for swollen nodes, abnormal bleeding, and unusual bruising. 19:05 Neuro: Positive for altered mental status, loss of consciousness, syncope, weakness. Exam: 16:59 ECG was reviewed by the Attending Physician. kdr 19:05 Constitutional: This is a well developed, well nourished patient who is awake, alert, kdr and in no acute distress. Head/Face: Normocephalic, atraumatic. Eyes: Pupils equal round and reactive to light, extra-ocular motions intact. Lids and lashes normal. Conjunctiva and sclera are non-icteric and not injected. Cornea within normal limits. Periorbital areas with no swelling, redness, or edema. Neck: Trachea midline, no thyromegaly or masses palpated, and no cervical lymphadenopathy. Supple, full range of motion without nuchal rigidity, or vertebral point tenderness. No Meningismus. Chest/axilla: Normal chest wall appearance and motion. Nontender with no deformity. No lesions are appreciated. Cardiovascular: Regular rate and rhythm with a normal S1 and S2. No gallops, murmurs, or rubs. Normal PMI, no JVD. No pulse deficits. Respiratory: Lungs have equal breath sounds bilaterally, clear to auscultation and percussion. No rales, rhonchi or wheezes noted. No increased work of breathing, no retractions or nasal flaring. Abdomen/GI: Soft, non-tender, with normal bowel sounds. No distension or tympany. No guarding or rebound. No evidence of tenderness throughout. Back: No spinal tenderness. No costovertebral tenderness. Full range of motion. Skin: Warm, dry with normal turgor. Normal color with no rashes, no lesions, and no evidence of cellulitis. MS/ Extremity: Pulses equal, no cyanosis. Neurovascular intact. Full, normal range of motion. Psych: Awake, alert, with orientation to person, place and time. Behavior, mood, and affect are within normal limits. 19:05 Neuro: Orientation: to person, Mentation: lucid, slow to respond, Cranial nerves: no acute changes, Motor: moves all fours. Vital Signs: 14:33 BP 74 / 49; Pulse 55; Resp 17; Temp 97.8; Pulse Ox 93% ; Weight 68.04 kg; bp 15:39 BP 96 / 46; Pulse 56; Resp 15; Pulse Ox 98% ; bp 16:44 BP 114 / 63; Pulse 60; Resp 18; Temp 97.4(O); Pulse Ox 95% on R/A; mh5 17:23 BP 114 / 64; Pulse 57; Resp 18; Pulse Ox 94% ; bp 18:00 BP 126 / 65; Pulse 58; Resp 16; Pulse Ox 96% ; bp 19:47 BP 106 / 58; Pulse 57; Resp 17; Pulse Ox 96% on R/A; ea 20:01 BP 106 / 58; Pulse 58; Resp 16; Temp 98; Pulse Ox 96% ; rv MDM: 17:11 Patient medically screened. kdr 19:05 Data reviewed: vital signs, nurses notes, lab test result(s), radiologic studies. kdr Counseling: I had a detailed discussion with the patient and/or guardian regarding: the historical points, exam findings, and any diagnostic results supporting the discharge/admit diagnosis, lab results, radiology results, the need for further work-up and treatment in the hospital. 10/30 14:51 Order name: T\T\S bp 10/30 14:51 Order name: Amylase, Serum bp 10/30 14:51 Order name: Basic Metabolic Panel bp 10/30 14:51 Order name: Blood Culture Adult (2) bp 10/30 14:51 Order name: CBC with Diff bp 10/30 14:51 Order name: Ckmb bp 10/30 14:51 Order name: CPK bp 10/30 14:51 Order name: Lactate bp 10/30 14:51 Order name: LFT's bp 10/30 14:51 Order name: Lipase bp 10/30 14:51 Order name: Procalcitonin; Complete Time: 16:52 bp 10/30 14:51 Order name: Protime (+inr); Complete Time: 16:52 bp 10/30 14:51 Order name: Ptt, Activated; Complete Time: 16:52 bp 10/30 14:51 Order name: Troponin (emerg Dept Use Only); Complete Time: 16:52 bp 10/30 14:51 Order name: Urine Microscopic Only; Complete Time: 16:52 bp 10/30 14:52 Order name: Type and Screen EDMS 10/30 14:52 Order name: Amylase; Complete Time: 16:52 EDMS 10/30 14:52 Order name: Basic Metabolic Panel; Complete Time: 16:52 EDMS 10/30 14:52 Order name: Blood Culture EDMS 10/30 14:52 Order name: CBC with Automated Diff; Complete Time: 16:52 EDMS 10/30 14:52 Order name: CKMB Creatine Kinase MB; Complete Time: 16:52 EDMS 10/30 14:52 Order name: Creatine Phosphokinase; Complete Time: 16:52 EDMS 10/30 14:52 Order name: Lactate; Complete Time: 16:52 EDMS 10/30 14:52 Order name: Liver (Hepatic) Function; Complete Time: 16:52 EDMS 10/30 14:52 Order name: Lipase; Complete Time: 16:52 EDMS 10/30 15:15 Order name: Urine Dipstick--Ancillary (enter results) em1 10/30 16:07 Order name: Urine Culture EDIL 10/30 16:10 Order name: ABO/RH no charge; Complete Time: 16:52 EDMS 10/30 16:20 Order name: Antibody Identification EDIL 10/30 14:51 Order name: Chest Single View XRAY; Complete Time: 16:52 bp 10/30 14:51 Order name: Accucheck; Complete Time: 15:06 bp 10/30 14:51 Order name: Cardiac monitoring; Complete Time: 15:06 bp 10/30 14:51 Order name: EKG - Nurse/Tech; Complete Time: 15:06 bp 10/30 14:51 Order name: IV Saline Lock - Large Bore; Complete Time: 15:06 bp 10/30 14:51 Order name: Labs collected and sent; Complete Time: 15:06 bp 10/30 14:51 Order name: O2 Per Protocol; Complete Time: 15:06 bp 10/30 14:51 Order name: O2 Sat Monitoring; Complete Time: 15:06 bp 10/30 14:51 Order name: Urine Dipstick-Ancillary (obtain specimen); Complete Time: 15:19 bp 10/30 14:51 Order name: CT Head Brain wo Cont; Complete Time: 16:52 bp 10/30 14:53 Order name: Straight Cath; Complete Time: 15:19 bp 10/30 16:10 Order name: Chest Abd Pelvis Wo Con; Complete Time: 16:52 EDIL 10/30 17:09 Order name: SARS-COV-2 RT PCR; Complete Time: 17:11 EDMS 10/30 18:13 Order name: CONS Pharmacy Consult EDMS 10/30 18:13 Order name: CONS Physician Consult EDMS 10/30 18:13 Order name: NPO EDIL 10/30 18:13 Order name: CBC with Automated Diff EDIL 10/30 18:13 Order name: CBC with Automated Diff EDIL 10/30 18:13 Order name: Comprehensive Metabolic Panel EDMS 10/30 18:13 Order name: Comprehensive Metabolic Panel EDMS 10/30 18:13 Order name: Protime (+INR) EDMS 10/30 18:13 Order name: Protime (+INR) EDIL 10/30 18:13 Order name: PTT, Activated Partial Thromb EDMS 10/30 18:13 Order name: PTT, Activated Partial Thromb EDIL EC:59 Rate is 53 beats/min. Rhythm is regular, Sinus bradycardia with No ectopy. QRS [place] is kdr Normal. NE interval is normal. QRS interval is normal. QT interval is normal. Clinical impression: Sinus bradycardia. Administered Medications: 15:10 Drug: NS 0.9% (30 ml/kg) 30 ml/kg Route: IV; Rate: bolus; Site: right antecubital; bp Disposition: 10/30/20 17:11 Hospitalization ordered by Jeannine Zimmerman for Observation. Preliminary diagnosis are Syncope and collapse, Hypotension, Altered mental status, unspecified, Weakness. - Bed requested for Telemetry/MedSurg (observation). - Status is Observation. rv - Condition is Fair. - Problem is new. - Symptoms have improved. Signatures: Dispatcher [employer] EDIL Yimi Martinez MD MD kdr Marycarmen Kapoor RN RN tl1 Best Miller, RN RN bp Cooper Nunez, RN RN rv Corrections: (The following items were deleted from the chart) 16:10 14:56 Chest Abdomen Pelvis W Con+CT.RAD.BRZ ordered. EDMS EDMS 16:13 14:54 CORONAVIRUS+MR.LAB.BRZ ordered. EDIL EDMS 19:43 17:11 Hospitalization Ordered by Jeannine Zimmerman MD for Observation. Preliminary tl1 diagnosis is Syncope and collapse; Hypotension; Altered mental status, unspecified; Weakness. Bed requested for Telemetry/MedSurg (observation). Status is Observation. Condition is Fair. Problem is new. Symptoms have improved. kdr 20:05 19:43 10/30/2020 17:11 Hospitalization Ordered by Jeannine Zimmerman MD for Observation. rv Preliminary diagnosis is Syncope and collapse; Hypotension; Altered mental status, unspecified; Weakness. Bed requested for Telemetry/MedSurg (observation). Status is Observation. Condition is Fair. Problem is new. Symptoms have improved. tl1
[2020-10-30 17:33] LABS: Urine Blood NEGATIVE (NEG); Urine Glucose 2+ (NEG); Urine Protein 2+ (NEG); Urine Specific Gravity 1.025 (1.005-1.030); Urine pH 5.5 (5.0-7.0)
[2020-10-30] MEDS ORDERED: MORPHINE 4 MG/ML SYR IV PRN (18:10)
[2020-10-30] MEDS ORDERED: ONDANSETRON 4 MG/2 ML VIAL IV PRN (18:10)
[2020-10-30] MEDS ORDERED: ACETAMINOPHEN 500 MG TAB PO PRN (18:10)
[2020-10-30] MEDS ORDERED: MORPHINE 2 MG/ML SYR IV PRN (18:14)
--- NOTE | 2020-10-30 18:24 | P.HP ---
Certification for Inpatient Patient admitted to: Observation With expected LOS: <2 Midnights Patient will require the following post-hospital care: None Practitioner: I am a practitioner with admitting privileges, knowledge of patient current condition, hospital course, and medical plan of care. Services: Services provided to patient in accordance with Admission requirements found in Title 42 Section 412.3 of the Code of Federal Regulations Patient History Date of Service: 10/30/20 Reason for admission: AMS History of Present Illness: Patient is an 80yo who was admitted to the hospital with AMS. Patient was on pain medication for her stage IV lung cancer. Sje was diagnosed a month prior at [facility]. Patient had a thoracentesis performed, and she had 1.5L of fluid removed. She has been on treatment since that time. Patient had been doing well neurologically. MRI of the brain to evaluate for mets was negative per family. Patient had CT of the head that was negative. Patient had a full body CT that is pending. We will admit for AMS. We will get Oncology consultation. We will do neurochecks q4h. Admit for observation. Allergies iodine Allergy (Verified 10/30/20 22:03) Hives/Rash Home Medications: Amlodipine [Norvasc*] 10 mg PO DAILY #30 tab 03/05/16 Anastrozole [Arimidex*] 1 mg PO DAILY 03/05/16 Atorvastatin Calcium [Lipitor*] 20 mg PO BEDTIME 03/05/16 Fluoxetine HCl 60 mg PO DAILY 03/05/16 Fluticasone Propionate [Flovent Diskus] 250 mcg IH BID #1 disk.w.dev 03/05/16 Insulin Glargine,Hum.rec.anlog [Lantus] 30 unit SQ BID 03/05/16 Liraglutide [Victoza 2-Ronnie] 1.8 mg SQ DAILY 03/05/16 Metformin ER [Glucophage ER*] 1,000 mg PO DAILY 03/05/16 Promethazine HCl/Codeine [Promethazine-Codeine Syrup] 5 ml PO Q6HP PRN 10 Days syrup 03/05/16 Thyroid,Pork [[place] Thyroid] 120 mg PO DAILY 03/05/16 predniSONE [Deltasone] 10 mg PO BID #20 tab 03/05/16 - Past Medical/Surgical History Diabetic: Yes -: Breast cancer -: Hypertension -: Dyslipidemia -: Osteoarthritis -: Hypothyroidism -: bilateral mastectomy -: tummy tuck -: breast reduction -: Appendectomy -: partial hysterectomy - Family History Brother Medical History: Diabetes Sister Medical History: Diabetes - Social History Alcohol use: No CD- Drugs: No Caffeine use: Yes Review of Systems is unable to be obtained Physical Examination - Vital Signs Temperature: 98 F Blood Pressure: 130/80 Pulse: 80 Respirations: 18 Pulse Ox (%): 95 - Physical Exam General: Confused HEENT: Atraumatic, Normocephalic Neck: Supple, 2+ carotid pulse no bruit Respiratory: Crackles/rales, Expiratory wheezes Cardiovascular: Regular rate/rhythm, Normal S1 S2, No murmurs Gastrointestinal: Normal bowel sounds, Soft and benign, Non-distended Musculoskeletal: No clubbing, No contractures, Swelling Integumentary: No rashes, No breakdown, No significant lesion, No tenderness/swelling Neurological: Sensation intact, Cranial nerves 3-12 intact, Other (BEE; sensation intact; strength is equal in all 4 extremities; no pronator drift; Babinski down going), Abnormal gait, Abnormal speech, Abnormal strength - Studies Laboratory Data (last 24 hrs) 10/30/20 15:00: PT 12.5, INR 1.06, APTT 25.3 10/30/20 15:00: WBC 9.6, Hgb 13.7, Hct 42.0, Plt Count 182 10/30/20 15:00: Sodium 137, Potassium 4.2, BUN 24 H, Creatinine 1.68 H, Glucose 261 H, Total Bilirubin 0.3, AST 11 L, ALT 12, Alkaline Phosphatase 98, Amylase 21 L, Lipase 54 L Assessment & Plan - Problems (Diagnosis) (1) AMS (altered mental status) Current Visit: Yes Status: Acute (2) Metastatic lung cancer (metastasis from lung to other site) Current Visit: Yes Status: Acute (3) Chronic pain syndrome Current Visit: Yes Status: Acute (4) Recurrent left pleural effusion Current Visit: Yes Status: Acute - Plan PLAN: 1. Monitor neuro status 2. MRI of the brain if symptoms not improved. 3. Oncology consulation 4. Monitor labs 5. Repeat narcan as needed 6. GI/DVT prophylaxis Discharge Plan: Home Plan to discharge in: 24 Hours - Advance Directives Does patient have a Living Will: Yes Does patient have a Durable POA for Healthcare: Yes - Code Status/Comfort Care Code Status Assessed: Yes Code Status: Full Code Critical Care: No Time Spent Managing PTS Care (In Minutes): 40
[2020-10-30] MEDS ORDERED: CEFTRIAXONE 1 GM/NS 50 ML 1 GM/50 ML BAG IV SCH (21:00)
[2020-10-30 21:07] VITALS: O2SAT 96
[2020-10-30] MEDS: NA CHLORIDE 0.9% 1,000 ML IV SCH (21:56)
[2020-10-30] MEDS: CEFTRIAXONE/SWI 1gm 1 GM/10 ML SYR IV SCH (22:00)
[2020-10-30] MEDS: HYDROCORTISONE SUC 100 MG INJ IV SCH (22:00)
[2020-10-30 22:06] VITALS: BMI 27.8
[2020-10-31 05:35] LABS: Absolute Lymphocytes (CBC) 1.4 K/uL (0.7-4.9); Basophils % 0.7 % (0-1.3); Lymphocytes % 14.2 % (15.3-44.8); MPV 9.8 fL (7.6-11.3); RBC Red Blood Cell Count 5.03 M/uL (3.86-4.86)
[2020-10-31 05:47] LABS: Albumin 3.3 g/dL (3.4-5.0); Bilirubin Total 0.2 mg/dL (0.2-1.0); Protein, Total 7.2 g/dL (6.4-8.2)
[2020-10-31 06:38] LABS: Protime INR 1.02
[2020-10-31] MEDS: NA CHLORIDE 0.9% 1,000 ML IV SCH (09:39)
[2020-10-31] MEDS: CEFTRIAXONE/SWI 1gm 1 GM/10 ML SYR IV SCH ×2 (09:41→21:03)
[2020-10-31] MEDS: HYDROCORTISONE SUC 100 MG INJ IV SCH ×2 (09:41→21:03)
--- NOTE | 2020-10-31 11:42 | P.CNS ---
Date of Consult: 10/31/20 Reason for Consult: Left-sided pleural effusion Chief Complaint: AMS History of Present Illness: Patient is 80 years of age with stage IV lung cancer this on oral chemotherapy pill admitted with altered mental status she is very alert oriented responsive cooperative as been complaining some some shortness of breath on exertion patient has significant effusion on the left side denies any chest pain no fever Allergies iodine Allergy (Verified 10/30/20 22:03) Hives/Rash Home Medications: Amlodipine [Norvasc*] 10 mg PO DAILY #30 tab 03/05/16 Anastrozole [Arimidex*] 1 mg PO DAILY 03/05/16 Atorvastatin Calcium [Lipitor*] 20 mg PO BEDTIME 03/05/16 Fluoxetine HCl 60 mg PO DAILY 03/05/16 Fluticasone Propionate [Flovent Diskus] 250 mcg IH BID #1 disk.w.dev 03/05/16 Insulin Glargine,Hum.rec.anlog [Lantus] 30 unit SQ BID 03/05/16 Liraglutide [Victoza 2-Ronnie] 1.8 mg SQ DAILY 03/05/16 Metformin ER [Glucophage ER*] 1,000 mg PO DAILY 03/05/16 Promethazine HCl/Codeine [Promethazine-Codeine Syrup] 5 ml PO Q6HP PRN 10 Days syrup 03/05/16 Thyroid,Pork [Adams Thyroid] 120 mg PO DAILY 03/05/16 predniSONE [Deltasone] 10 mg PO BID #20 tab 03/05/16 - Past Medical/Surgical History Diabetic: Yes -: Breast cancer -: Hypertension -: Dyslipidemia -: Osteoarthritis -: Hypothyroidism -: bilateral mastectomy -: tummy tuck -: breast reduction -: Appendectomy -: partial hysterectomy - Family History Brother Medical History: Diabetes Sister Medical History: Diabetes - Social History Smoking Status: Never smoker Alcohol use: No CD- Drugs: No Caffeine use: Yes Place of Residence: Home Review of Systems General: Weakness Respiratory: Shortness of Breath Physical Examination Temp Pulse Resp BP Pulse Ox 98 F 80 18 130/80 95 10/31/20 11:33 10/31/20 11:33 10/31/20 11:33 10/31/20 11:33 10/31/20 11:33 General: Alert, In no apparent distress, Oriented x3 Neck: Supple Respiratory: Diminished (BP is a entry in the left side) Cardiovascular: No edema, Regular rate/rhythm, Normal S1 S2 Laboratory Data (last 24 hrs) 10/30/20 15:00: PT 12.5, INR 1.06, APTT 25.3 10/30/20 15:00: WBC 9.6, Hgb 13.7, Hct 42.0, Plt Count 182 10/30/20 15:00: Sodium 137, Potassium 4.2, BUN 24 H, Creatinine 1.68 H, Glucose 261 H, Total Bilirubin 0.3, AST 11 L, ALT 12, Alkaline Phosphatase 98, Amylase 21 L, Lipase 54 L - Problems (1) Pleural effusion Current Visit: Yes Status: Acute Plan: Patient is 80 years of age with stage IV lung cancer admitted when the altered mental status CT of the head is negative she is very alert oriented responsive cooperative blood pressure is mildly elevated kidney function is now normal with IV fluids the schedule for a thoracentesis have also order bilateral decubitus of the chest ultrasound of the chest ideally a PleurX catheter would be more beneficial as an outpatient S she is bound to have recurrent pleural effusion secondary to a lung cancer he for oxygenation remains stable AV also possible doing that as an outpatient with that doctor Roney
[2020-10-31] MEDS ORDERED: D50W 25 GM/50 ML SYRINGE IV PRN ×2 (12:01→17:21)
[2020-10-31] MEDS ORDERED: GLUCAGON 1 MG/VIAL IM PRN ×2 (12:01→17:21)
--- NOTE | 2020-10-31 15:16 | RAD REPORT ---
EXAM DESCRIPTION: RAD - Chest Lateral Decubitus - 10/31/2020 1:56 pm CLINICAL HISTORY: Left pleural effusion COMPARISON: CT chest October 30, portable chest October 30 TECHNIQUE: Right and left lateral decubitus films were obtained. FINDINGS: No right-sided pleural effusion or right hemithorax abnormality. Large left pleural effusion is identified seen to only partially layer on the decubitus imaging. No pneumothorax. IMPRESSION: Partial layering of a large left pleural effusion.
[2020-10-31] MEDS ORDERED: FUROSEMIDE 20 MG/ 2ML VIAL IV ONE (15:59)
[2020-10-31] MEDS ORDERED: HYDRALAZINE HCL 20 MG/ML VIAL IV ONE (15:59)
[2020-10-31] MEDS: INSULIN -REGULAR HUMAN 50 UNIT/0.5 ML ML SQ SCH ×2 (16:24→21:20)
--- NOTE | 2020-10-31 16:26 | RAD REPORT ---
EXAM DESCRIPTION: US - Chest - 10/31/2020 3:43 pm CLINICAL HISTORY: Left effusion RO loculation COMPARISON: Chest Lateral Decubitus dated 10/31/2020 FINDINGS: Left chest sonographic evaluation was performed. Prior CT chest and decubitus chest film s how pleural effusion with findings indicating at least partial loculation. Left chest sonographic evaluation demonstrates a large pleural effusion. Atelectatic lung is observed . No gross evidence for pleural thickening. No thickened stranding to indicate loculation. IMPRESSION: Large left pleural effusion. Significant contribution from loculation is not identified sonographically.
[2020-10-31] MEDS ORDERED: HYOSCYAMINE SULF 0.125 MG TAB PO PRN (17:21)
[2020-10-31] MEDS ORDERED: CLONIDINE HCL 0.3 MG TAB PO ONE (17:22)
[2020-10-31] MEDS ORDERED: VANCOMYCIN 1.25 GM in NA CHLORIDE 0.9% 250 ML IVPB SCH (18:00)
[2020-10-31] MEDS ORDERED: VANCOMYCIN 1 GM/VIAL ONE (20:01)
[2020-10-31] MEDS ORDERED: VANCOMYCIN 500 MG/VIAL ONE (20:02)
[2020-10-31] MEDS ORDERED: NA CHLORIDE 0.9% 250 ML ONE (20:30)
[2020-10-31] MEDS: VANCOMYCIN 1.25 GM in NA CHLORIDE 0.9% 250 ML IVPB SCH (21:00)
[2020-10-31] MEDS: cloNIDine HCL 0.1 MG TAB PO SCH (21:00)
[2020-10-31] MEDS ORDERED: CEFTRIAXONE/SWI 1gm 1 GM/10 ML SYR IV SCH (21:00)
[2020-10-31] MEDS ORDERED: CEFTRIAXONE 1 GM/NS 50 ML 1 GM/50 ML BAG IV SCH (21:00)
[2020-10-31] MEDS: carvediloL 6.25 MG TAB PO SCH (21:43)
[2020-11-01] MEDS ORDERED: INSULIN -REGULAR HUMAN 50 UNIT/0.5 ML ML SQ SCH ×3 (01:15→17:00)
[2020-11-01] MEDS: INSULIN -REGULAR HUMAN 50 UNIT/0.5 ML ML SQ SCH ×2 (05:44→12:56)
[2020-11-01 05:58] LABS: Absolute Lymphocytes (CBC) 2.2 K/uL (0.7-4.9); Basophils % 1.2 % (0-1.3); Hematocrit 37.2 % (36.0-45.0); Lymphocytes % 24.8 % (15.3-44.8); MPV 10.6 fL (7.6-11.3)
[2020-11-01 06:11] LABS: Magnesium 1.7 mg/dL (1.8-2.4); Phosphorus 3.3 mg/dL (2.5-4.9); Potassium 3.7 mmol/L (3.5-5.1)
--- NOTE | 2020-11-01 08:09 | P.PN ---
Subjective Date of Service: 10/31/20 Patient is clinically feeling better. Neurologically patient is oriented to person, place, and time today. Patient has a large left pleural effusion. Seen by a Pulmonary and recommended PleurX catheter. Lateral decubitus film completed. Blood cultures have been positive. Continue with antibiotic therap y. Review of Systems 10-point ROS is otherwise unremarkable Physical Examination - Vital Signs Temperature: 97.1 F Blood Pressure: 144/64 Pulse: 67 Respirations: 20 Pulse Ox (%): 94 - Physical Exam General: Alert, In no apparent distress, Oriented x3 Respiratory: Diminished, Crackles/rales, Expiratory wheezes Cardiovascular: Regular rate/rhythm, Normal S1 S2, No murmurs Gastrointestinal: Normal bowel sounds, Soft and benign, Non-distended, No tenderness Musculoskeletal: No clubbing, No swelling, No tenderness Neurological: Sensation intact, Cranial nerves 3-12 intact - Studies Medications List Reviewed: Yes Assessment & Plan - Problems (Diagnosis) (1) AMS (altered mental status) Current Visit: Yes Status: Acute (2) Metastatic lung cancer (metastasis from lung to other site) Current Visit: Yes Status: Acute (3) Chronic pain syndrome Current Visit: Yes Status: Acute (4) Recurrent left pleural effusion Current Visit: Yes Status: Acute (5) Hyperglycemia Current Visit: Yes Status: Acute - Plan PLAN: 1. Blood cultures are positive. Continue with IV antibiotic therapy pending identification and sensitivities 2. Dc neurochecks 3. Oncology consulation appreciated 4. Monitor labs 5. Out of bed and ambulate 6. Accu-Cheks q.a.c. q.h.s. 7. Strict blood sugar control 8. Hemoglobin A1c 9. GI/DVT prophylaxis Discharge Plan: Home Plan to discharge in: Greater than 2 days - Advance Directives Does patient have a Living Will: Yes Does patient have a Durable POA for Healthcare: Yes - Code Status/Comfort Care Code Status: Full Code Critical Care: No Time Spent Managing PTS Care (In Minutes): 35
[2020-11-01] MEDS ORDERED: Magnesium Sulfate 2gm IVPB 2 G/50 ML BAG IV ONE (08:11)
--- NOTE | 2020-11-01 08:11 | P.PN ---
Subjective Date of Service: 11/01/20 Physical Examination - Vital Signs Temperature: 97.1 F Blood Pressure: 144/64 Pulse: 67 Respirations: 20 Pulse Ox (%): 94 - Studies Medications List Reviewed: Yes Assessment & Plan - Problems (Diagnosis) (1) AMS (altered mental status) Current Visit: Yes Status: Acute (2) Metastatic lung cancer (metastasis from lung to other site) Current Visit: Yes Status: Acute (3) Chronic pain syndrome Current Visit: Yes Status: Acute (4) Recurrent left pleural effusion Current Visit: Yes Status: Acute (5) Hyperglycemia Current Visit: Yes Status: Acute - Plan PLAN: 1. Blood cultures are positive. Continue with IV antibiotic therapy; awaiting identification and sensitivities 2. AMS last night; continue with monitoring neuro status 3. Oncology consulation appreciated 4. Pulmonary to evaluate decubitus films; outpt PleurX cath 5. Out of bed and ambulate 6. Accu-Cheks q.a.c. q.h.s. 7. Strict blood sugar control 8. Hemoglobin A1c 9. GI/DVT prophylaxis Discharge Plan: Home Plan to discharge in: Greater than 2 days - Advance Directives Does patient have a Living Will: Yes Does patient have a Durable POA for Healthcare: Yes - Code Status/Comfort Care Code Status: Full Code Critical Care: No Time Spent Managing PTS Care (In Minutes): 30
[2020-11-01] MEDS ORDERED: FUROSEMIDE 40 MG TABLET PO SCH (09:00)
[2020-11-01] MEDS ORDERED: IRON FUM PO SCH (09:00)
[2020-11-01] MEDS ORDERED: [UNRECOGNIZED DRUG - OTHER] PO SCH (09:00)
[2020-11-01] MEDS ORDERED: LEVOTHYROXINE SOD 0.025 MG TAB PO SCH (09:00)
[2020-11-01] MEDS ORDERED: INSULIN DEGLUDEC SQ SCH ×2 (09:00→17:00)
[2020-11-01] MEDS ORDERED: METHSCOPOLAMINE 5 MG PO SCH (09:00)
[2020-11-01] MEDS ORDERED: PS CMP PO SCH (09:00)
[2020-11-01] MEDS ORDERED: VIT C PO SCH (09:00)
[2020-11-01] MEDS: VANCOMYCIN 1.25 GM in NA CHLORIDE 0.9% 250 ML IVPB SCH (09:00)
[2020-11-01] MEDS ORDERED: ESCITALOPRAM 20 MG TAB PO SCH (09:00)
--- NOTE | 2020-11-01 09:39 | P.PN ---
Subjective Date of Service: 11/01/20 Chief Complaint: Left-sided pleural effusion No changes still very alert little confused present at the bedside animal shortness of breath Review of Systems General: Weakness Respiratory: Shortness of Breath Physical Examination - Vital Signs Temperature: 97.1 F Blood Pressure: 144/64 Pulse: 67 Respirations: 20 Pulse Ox (%): 94 - Physical Exam General: Alert, Oriented x2 Respiratory: Diminished (Diminished on the left side) - Studies Medications List Reviewed: Yes Assessment & Plan - Problems (Diagnosis) (1) Pleural effusion Current Visit: Yes Status: Acute Plan: Patient is admitted with left-sided pleural effusion most likely malignant she is clinically stable requiring oxygen is not appear in any significant distress evidence of loculation of discuss with the present at the bedside she is to follow up per Dr. Sim Wednesday for a PleurX catheter which is a better option than recurrent thoracentesis/blood cultures most likely contaminant is she has coagulase-negative Staphylococcus no clinical evidence of sepsis
--- NOTE | 2020-11-01 09:54 | P.DS ---
Discharge Date: 11/01/20 Disposition: ROUTINE DISCHARGE Discharge Condition: GOOD Reason for Admission: Left-sided pleural effusion - Problems (1) AMS (altered mental status) Current Visit: Yes Status: Acute (2) Metastatic lung cancer (metastasis from lung to other site) Current Visit: Yes Status: Acute (3) Chronic pain syndrome Current Visit: Yes Status: Acute (4) Recurrent left pleural effusion Current Visit: Yes Status: Acute (5) Hyperglycemia Current Visit: Yes Status: Acute Brief History of Present Illness: Patient is an 80yo who was admitted to the hospital with AMS. Patient was on pain medication for her stage IV lung cancer. Sje was diagnosed a month prior at [facility]. Patient had a thoracentesis performed, and she had 1.5L of fluid removed. She has been on treatment since that time. Patient had been doing well neurologically. MRI of the brain to evaluate for mets was negative per family. Patient had CT of the head that was negative. Patient had a full body CT that is pending. We will admit for AMS. We will get Oncology consultation. We will do neurochecks q4h. Admit for observation. Vital Signs/Physical Exam: Temp Pulse Resp BP Pulse Ox 97.1 F 67 20 144/64 H 94 11/01/20 09:39 11/01/20 09:39 11/01/20 09:39 11/01/20 09:39 11/01/20 09:39 Laboratory Data at Discharge: WBC 8.8 K/uL (4.3-10.9) 11/01/20 05:39 Hgb 12.1 g/dL (12.0-15.0) 11/01/20 05:39 Hct 37.2 % (36.0-45.0) 11/01/20 05:39 Plt Count 134 K/uL (152-406) L 11/01/20 05:39 PT 12.0 SECONDS (9.5-12.5) 10/31/20 05:03 INR 1.02 10/31/20 05:03 APTT 21.5 SECONDS (24.3-36.9) L 10/31/20 05:03 Sodium 139 mmol/L (136-145) 11/01/20 05:39 Potassium 3.7 mmol/L (3.5-5.1) 11/01/20 05:39 BUN 22 mg/dL (7-18) H 11/01/20 05:39 Creatinine 1.24 mg/dL (0.55-1.3) 11/01/20 05:39 Glucose 281 mg/dL (74-106) H 11/01/20 05:39 Phosphorus 3.3 mg/dL (2.5-4.9) 11/01/20 05:39 Magnesium 1.7 mg/dL (1.8-2.4) L 11/01/20 05:39 Total Bilirubin 0.2 mg/dL (0.2-1.0) 10/31/20 05:03 AST 15 U/L (15-37) 10/31/20 05:03 ALT 9 U/L (12-78) L 10/31/20 05:03 Alkaline Phosphatase 83 U/L (45-117) 10/31/20 05:03 Amylase 21 U/L (25-115) L 10/30/20 15:00 Lipase 54 U/L (73-393) L 10/30/20 15:00 Home Medications: Anastrozole [Arimidex*] 1 mg PO DAILY 03/05/16 Clonidine HCl [Catapres] 0.1 mg PO BID 10/31/20 Escitalopram [Lexapro*] 20 mg PO DAILY 10/31/20 Furosemide [Lasix*] 40 mg PO DAILY 10/31/20 Hyoseyamin 0.125 mg PO Q4H PRN 10/31/20 Insulin -Regular Human [Novolin -R*] 9 units SQ DAILY 10/31/20 Insulin -Regular Human [Novolin -R*] 9 units SQ DAILY AT SUPPER 10/31/20 Insulin Degludec [Tresiba Flextouch U-100] 20 unit SQ DAILY AT SUPPER 10/31/20 Insulin Degludec [Tresiba Flextouch U-100] 28 units SQ DAILY 10/31/20 Iron Fum & Ps Cmp/Vit C & B [Integra Capsule] 1 each PO DAILY 10/31/20 Levothyroxine Sodium [Levothyroxine] 25 mcg PO DAILY 10/31/20 Methscopolamine Stinnett 5 mg PO DAILY 10/31/20 Osimertinib Mesylate [Tagrisso] 80 mg PO 1330 10/31/20 carvediloL [Coreg*] 6.25 mg PO BID 10/31/20 Cefdinir [Omnicef] 300 mg PO BID #14 capsule 11/01/20 predniSONE [Deltasone*] 10 mg PO BID #10 tab 11/01/20 New Medications: predniSONE [Deltasone*] 10 mg PO BID #10 tab Cefdinir [Omnicef] 300 mg PO BID #14 capsule Patient Discharge Instructions: OK TO DC IV AND DC HOME. FOLLOW-UP WITH PRIMARY CARE PROVIDER IN 1-2 WEEKS. FOLLOW-UP WITH Pulmonary and/or General surgery IN 1-2 WEEKS. RETURN TO THE ER IF symptoms worsen. CALL or TEXT DR. PINA AT [phone] IF ANY QUESTIONS REGARDING HOSPITAL STAY. PLEASE CALL THE FLOOR AT [phone] IF ANY MEDICATION OR NURSING QUESTIONS. Diet: ADA Activity: Fall precautions Followup: Unknown,U [Primary Care Provider] -
[2020-11-01] MEDS: cloNIDine HCL 0.1 MG TAB PO SCH (09:57)
[2020-11-01] MEDS: carvediloL 6.25 MG TAB PO SCH (09:58)
[2020-11-01] MEDS: CEFTRIAXONE/SWI 1gm 1 GM/10 ML SYR IV SCH (10:00)
[2020-11-01] MEDS: HYDROCORTISONE SUC 100 MG INJ IV SCH (10:01)
[2020-11-01] MEDS ORDERED: HYDROCODONE/APAP 5/325 MG TAB PO PRN (11:25)
--- NOTE | 2020-11-01 16:14 | EKG ---
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
[2020-11-01 18:02] VITALS: BP 154/68; TEMP 97.6
[2020-11-02] MEDS ORDERED: FUROSEMIDE 20 MG TABLET PO SCH (09:00)
[2020-11-02] MEDS ORDERED: VANCOMYCIN 1.25 GM in NA CHLORIDE 0.9% 250 ML IVPB SCH (09:00)
== END 2020-11-01 18:27 | disposition home or self-care (01) | DRG 181 ==
LOC: ER 14:23 → ERHOLD 18:10 → 2ND 20:03 → OBSVTOIN 10-31 14:07
PROVIDERS: ADMIT Hospitalist; ATTEND Hospitalist
DX: C78.00 Secondary malignant neoplasm of unspecified lung (principal); J91.0 Malignant pleural effusion; I10 Essential (primary) hypertension; E78.5 Hyperlipidemia, unspecified; G89.4 Chronic pain syndrome; E11.65 Type 2 diabetes mellitus with hyperglycemia; Z88.8 Allergy status to other drugs, medicaments and biological substances; Z79.4 Long term (current) use of insulin; Z79.52 Long term (current) use of systemic steroids; Z79.899 Other long term (current) drug therapy; Z85.3 Personal history of malignant neoplasm of breast; Z90.711 Acquired absence of uterus with remaining cervical stump; Z79.890 Hormone replacement therapy; Z90.49 Acquired absence of other specified parts of digestive tract; Z90.13 Acquired absence of bilateral breasts and nipples; Z20.822 Contact with and (suspected) exposure to COVID-19
CPT/HCPCS: 36415; 70450; 71045; 71046; 71250; 74176; 76604; 80048; 80053; 80076; 80202; 81003; 81015; 82150; 82550; 82553; 82947; 83605; 83690; 83735; 84100; 84145; 84484; 85025; 85610; 85730; 86850; 86870; 86900; 86901; 87040; 87077; 87086; 87088; 87186; 87205; 93005; 96374; 97116; 97161; 99285; J0360; J0696; J1720; J1940; J2270; J3370; J3475; J7030; J7050; U0003

== ENCOUNTER 2020-11-05 10:52 | Day surgery (SDC) | payer MEDICARE, SELFPAY ==
--- OUTSIDE RECORDS SUMMARY | 2020-11-05 11:00 | XMS REPORT | Clinical Summary ---
:1940 Author Organization [facility] Address [address] [place] [address] Care Team Providers Name Role Phone Yanick [...] Added automatically from request for francis collado [id number] Encounters Date Type Specialty Care Team Description 10/07/2020 Telephone Oncology Chato Tinsley MD 10/03/2020 Telephone Oncology Mikayla West RN 09/23/2020 Patient Outreach Quality Melony Castano RN 09/20/2020 Patient Outreach Quality Melony Castano RN 09/20/2020 Travel 09/20/2020 Telephone Oncology Chato Tinsley MD 09/16/2020 Surgery Cardiothoracic Serafin Schmidt Surgery MD Judith BRONCHOSCOPY, ELECTROMAGNETIC NAVIGATIONAL BRONCHOSCOPY, B IOPSY OF LEFT UPPER L OBE MASS 09/16/2020 Anesthesia Event Cardiothoracic Jaskaran Molina, Surgery 09/13/2020 [facility] General Internal Boyareddigari, Syncope a nd collapse [...] Cardiothoracic Juan C, Stephanie Lentz MA 08/30/2020 [facility] Radiology Serafin Schmidt MD 08/30/2020 [facility] Radiology Serafin Schmidt MD 08/30/2020 [facility] Radiology Serafin Schmidt MD 08/30/2020 Office Visit Cardiothoracic Serafin Schmidt Lung mass (Pr imary Dx); Surgery MD Judith Pre-op testing 08/30/2020 Orders Only Cardiothoracic Provider, Stephanie Voss MD 08/30/2020 Travel 08/27/2020 Travel after 11/05/2019 Surgical History Surgery Date Site/Laterality Comments MASTECTOMY BRONCHOSCOPY, USING 09/16/2020 Chest/Left Procedure: F LEXIBLE ELECTROMAGNETIC NAVIGATION [facility] HOSCOPY, ELECTROMAGNETIC NAVIGATIONAL BRO NCHOSCOPY, BIOPSY OF LEFT U PPER LOBE MASS; Surgeon: Serafin Schmidt MD; Locat ion: [facility] OR; Serv ice: Thoracic; Later ality: Left; US, ENDOBRONCHIAL 09/16/2020 N/A Procedure: EBU S; Surgeon: Serafin Schmidt MD; Location: [facility] OR; Service: Thoraci c; Laterality: N/A; THORACENTESIS 09/16/2020 Chest/N/A Procedure: LEFT THORACENTESIS; Surgeon: Serafin Schmidt MD; Location: [facility] OR; Service: Thoraci c; Laterality: N/A; Medical [...] Comments Blood Pressure 144/60 09/19/2020 7:23 AM BORDER INSPECTOR Pulse 53 09/19/2020 7:23 AM BORDER INSPECTOR Temperature 36.8 C (98.3 F) 09/19/2020 7:23 AM BORDER INSPECTOR Respiratory Rate 18 09/19/2020 7:23 AM BORDER INSPECTOR Oxygen Saturation 95% 09/19/2020 7:23 AM BORDER INSPECTOR Inhaled Oxygen Concentration - - Weight 67.1 kg (148 lb) 09/13/2020 8:05 AM BORDER INSPECTOR Height 157.5 cm (5' 2") 09/13/2020 8:05 AM BORDER INSPECTOR Body Mass Index 27.07 09/13/2020 8:05 AM BORDER INSPECTOR Plan of Treatment Health Maintenance Due Date Last Done Comments DIABETES: RETINAL EYE EXAM 01/04/1950 DIABETIC FOOT EXAM 01/04/1950 COVID-19 VACCINE (#1) 1956 SHINGLES VACCINES (#1) 01/04/1990 65+ PNEUMOCOCCAL VACCINE (1 of 1 - PPSV23) 01/04/2005 INFLUENZA VACCINE 06/01/2020 09/01/2019 Procedures Procedure Name Priority Date/Time Associated Comments Diagnosis POC GLUCOSE Routine 09/19/2020 8:45 Results for this AM BORDER INSPECTOR procedure are i n the results section. ESTIMATED GFR Routine 09/19/2020 5:30 Results fo r this AM BORDER INSPECTOR procedure are i n the results section. CBC HEMOGRAM Routine 09/19/2020 5:30 Results for this AM BORDER INSPECTOR procedure are i n the results section. BASIC METABOLIC PANEL Routine 09/19/2020 5:30 Re sults for this AM BORDER INSPECTOR procedure are i n the results section. POC GLUCOSE Routine 09/18/2020 9:02 Results for this PM BORDER INSPECTOR procedure are i n the results section. POC GLUCOSE Routine 09/18/2020 5:31 Results for this PM BORDER INSPECTOR procedure are i n the results section. POC GLUCOSE Routine 09/18/2020 1:09 Results for this PM BORDER INSPECTOR procedure are i n the results section. XR CHEST 1 VW PORTABLE STAT 09/18/2020 9:37 R esults for this AM BORDER INSPECTOR procedure are i n the results section. POC GLUCOSE Routine 09/18/2020 8:31 Results for this AM BORDER INSPECTOR procedure are i n the results section. POC GLUCOSE Routine 09/18/2020 5:31 Results for this AM BORDER INSPECTOR procedure are i n the results section. ESTIMATED GFR Routine 09/18/2020 3:00 Results fo r this AM BORDER INSPECTOR procedure are i n the results section. CBC HEMOGRAM Routine 09/18/2020 3:00 Results for this AM BORDER INSPECTOR procedure are i n the results section. BASIC METABOLIC PANEL Routine 09/18/2020 3:00 Re sults for this AM BORDER INSPECTOR procedure are i n the results section. POC GLUCOSE Routine 09/17/2020 11:54 Results for this PM BORDER INSPECTOR procedure are i n the results section. POC GLUCOSE Routine 09/17/2020 4:46 Results for this PM BORDER INSPECTOR procedure are i n the results section. POC GLUCOSE Routine 09/17/2020 1:04 Results for this PM BORDER INSPECTOR procedure are i n the results section. POC GLUCOSE Routine 09/17/2020 8:19 Results for this AM BORDER INSPECTOR procedure are i n the results section. ESTIMATED GFR Routine 09/17/2020 4:10 Results fo r this AM BORDER INSPECTOR procedure are i n the results section. PHOSPHORUS LEVEL Routine 09/17/2020 4:10 Results for this AM BORDER INSPECTOR procedure are i n the results section. MAGNESIUM LEVEL Routine 09/17/2020 4:10 Results for this AM BORDER INSPECTOR procedure are i n the results section. BASIC METABOLIC PANEL Routine 09/17/2020 4:10 Re sults for this AM BORDER INSPECTOR procedure are i n the results section. HC COMPLETE BLD COUNT Routine 09/17/2020 4:10 Re sults for this W/AUTO DIFF AM BORDER INSPECTOR procedure are i n the results section. POC GLUCOSE Routine 09/16/2020 10:05 Results for this PM BORDER INSPECTOR procedure are i n the results section. XR CHEST 1 VW PORTABLE STAT 09/16/2020 8:58 R esults for this PM BORDER INSPECTOR procedure are i n the results section. POC GLUCOSE Routine 09/16/2020 5:59 Results for this PM BORDER INSPECTOR procedure are i n the results section. XR CHEST 1 VW PORTABLE STAT 09/16/2020 4:27 R esults for this PM BORDER INSPECTOR procedure are i n the results section. SURGICAL PATHOLOGY Routine 09/16/2020 4:11 Resul ts for this REQUEST PM BORDER INSPECTOR procedure are i n the results section. SURGICAL PATHOLOGY Routine 09/16/2020 4:11 Resul ts for this REQUEST PM BORDER INSPECTOR procedure are i n the results section. BAL CELL COUNT AND Routine 09/16/2020 2:46 Resul ts for this DIFFERENTIAL PM BORDER INSPECTOR procedure are i n the results section. CYTOLOGY Routine 09/16/2020 1:20 Results for this (NON-GYNECOLOGICAL) PM BORDER INSPECTOR procedur e are in REQUEST the results section. CYTOLOGY Routine 09/16/2020 1:20 Results for this (NON-GYNECOLOGICAL) PM BORDER INSPECTOR procedur e are in REQUEST the results section. CYTOLOGY Routine 09/16/2020 1:20 Results for this (NON-GYNECOLOGICAL) PM BORDER INSPECTOR procedur e are in REQUEST the results section. CYTOLOGY Routine 09/16/2020 1:20 Results for this (NON-GYNECOLOGICAL) PM BORDER INSPECTOR procedur e are in REQUEST the results section. AL AN ELECTIVE Routine 09/16/2020 1:03 Results f or this ENDOTRACHEAL AIRWAY PM BORDER INSPECTOR procedur e are in the results section. CYTOLOGY Routine 09/16/2020 10:45 Results for this (NON-GYNECOLOGICAL) AM BORDER INSPECTOR procedur e are in REQUEST the results section. CYTOLOGY Routine 09/16/2020 10:45 Results for this (NON-GYNECOLOGICAL) AM BORDER INSPECTOR procedur e are in REQUEST the results section. CYTOLOGY Routine 09/16/2020 10:44 Results for this (NON-GYNECOLOGICAL) AM BORDER INSPECTOR procedur e are in REQUEST the results section. CYTOLOGY Routine 09/16/2020 10:44 Results for this (NON-GYNECOLOGICAL) AM BORDER INSPECTOR procedur e are in REQUEST the results section. TTE COMPLETE, W Routine 09/16/2020 10:00 Results for this CONTRAST, W DOPPLER AM BORDER INSPECTOR procedur e are in ([id number]) the results section. POC GLUCOSE Routine 09/16/2020 9:16 Results for this AM BORDER INSPECTOR procedure are i n the results section. CT CHEST WO CONTRAST STAT 09/16/2020 8:50 Res ults for this AM BORDER INSPECTOR procedure are i n the results section. CYTOLOGY Routine 09/16/2020 6:12 Results for this (NON-GYNECOLOGICAL) AM BORDER INSPECTOR procedur e are in REQUEST the results section. CYTOLOGY Routine 09/16/2020 6:12 Results for this (NON-GYNECOLOGICAL) AM BORDER INSPECTOR procedur e are in REQUEST the results section. CYTOLOGY Routine 09/16/2020 6:12 Results for this (NON-GYNECOLOGICAL) AM BORDER INSPECTOR procedur e are in REQUEST the results section. POC GLUCOSE Routine 09/16/2020 4:25 Results for this AM BORDER INSPECTOR procedure are i n the results section. ABO AND RH CONFIRMATION Routine 09/16/2020 4:25 Results for this AM BORDER INSPECTOR procedure are i n the results section. B NATRIURETIC PEPTIDE Routine 09/16/2020 4:25 Re sults for this AM BORDER INSPECTOR procedure are i n the results section. HC COMPLETE BLD COUNT Routine 09/16/2020 4:25 Re sults for this W/AUTO DIFF AM BORDER INSPECTOR procedure are i n the results section. ESTIMATED GFR Routine 09/16/2020 4:00 Results fo r this AM BORDER INSPECTOR procedure are i n the results section. PHOSPHORUS LEVEL Routine 09/16/2020 4:00 Results for this AM BORDER INSPECTOR procedure are i n the results section. MAGNESIUM LEVEL Routine 09/16/2020 4:00 Results for this AM BORDER INSPECTOR procedure are i n the results section. BASIC METABOLIC PANEL Routine 09/16/2020 4:00 Re sults for this AM BORDER INSPECTOR procedure are i n the results section. ANTIBODY IDENTIFICATION Routine 09/16/2020 1:35 Results for this AM BORDER INSPECTOR procedure are i n the results section. TYPE AND SCREEN Routine 09/16/2020 1:35 Results for this AM BORDER INSPECTOR procedure are i n the results section. POC GLUCOSE Routine 09/16/2020 1:06 Results for this AM BORDER INSPECTOR procedure are i n the results section. URINE CULTURE Routine 09/15/2020 9:52 Results fo r this PM BORDER INSPECTOR procedure are i n the results section. POC GLUCOSE Routine 09/15/2020 8:59 Results for this PM BORDER INSPECTOR procedure are i n the results section. URINALYSIS SCREEN AND Routine 09/15/2020 6:55 Re sults for this MICROSCOPY, WITH REFLEX PM BORDER INSPECTOR proc edure are in TO CULTURE the results section. POC GLUCOSE Routine 09/15/2020 5:11 Results for this PM BORDER INSPECTOR procedure are i n the results section. POC GLUCOSE Routine 09/15/2020 11:52 Results for this AM BORDER INSPECTOR procedure are i n the results section. POC GLUCOSE Routine 09/15/2020 8:08 Results for this AM BORDER INSPECTOR procedure are i n the results section. ESTIMATED GFR Routine 09/15/2020 4:50 Results fo r this AM BORDER INSPECTOR procedure are i n the results section. PHOSPHORUS LEVEL Routine 09/15/2020 4:50 Results for this AM BORDER INSPECTOR procedure are i n the results section. MAGNESIUM LEVEL Routine 09/15/2020 4:50 Results for this AM BORDER INSPECTOR procedure are i n the results section. BASIC METABOLIC PANEL Routine 09/15/2020 4:50 Re sults for this AM BORDER INSPECTOR procedure are i n the results section. HC COMPLETE BLD COUNT Routine 09/15/2020 4:50 Re sults for this W/AUTO DIFF AM BORDER INSPECTOR procedure are i n the results section. POC GLUCOSE Routine 09/14/2020 9:19 Results for this PM BORDER INSPECTOR procedure are i n the results section. POC GLUCOSE Routine 09/14/2020 5:11 Results for this PM BORDER INSPECTOR procedure are i n the results section. POC GLUCOSE Routine 09/14/2020 1:39 Results for this PM BORDER INSPECTOR procedure are i n the results section. HC COMPLETE BLD COUNT STAT 09/14/2020 8:44 Re sults for this W/AUTO DIFF AM BORDER INSPECTOR procedure are i n the results section. POC GLUCOSE Routine 09/14/2020 7:08 Results for this AM BORDER INSPECTOR procedure are i n the results section. ESTIMATED GFR STAT 09/14/2020 7:08 Results fo r this AM BORDER INSPECTOR procedure are i n the results section. BASIC METABOLIC PANEL STAT 09/14/2020 7:08 Re sults for this AM BORDER INSPECTOR procedure are i n the results section. HC COMPLETE BLD COUNT Routine 09/14/2020 5:30 Re sults for this W/AUTO DIFF AM BORDER INSPECTOR procedure are i n the results section. HEMOGLOBIN A1C Routine 09/14/2020 5:30 Results f or this AM BORDER INSPECTOR procedure are i n the results section. BLOOD CULTURE, AEROBIC Routine 09/13/2020 8:40 R esults for this & ANAEROBIC PM BORDER INSPECTOR procedure are i n the results section. BLOOD CULTURE, AEROBIC Routine 09/13/2020 8:40 R esults for this & ANAEROBIC PM BORDER INSPECTOR procedure are i n the results section. POC GLUCOSE Routine 09/13/2020 7:28 Results for this PM BORDER INSPECTOR procedure are i n the results section. TROPONIN Timed 09/13/2020 5:00 Results for this PM BORDER INSPECTOR procedure are i n the results section. COVID-19 QUALITATIVE STAT 09/13/2020 3:07 Res ults for this PCR PM BORDER INSPECTOR procedure are i n the results section. NM LUNG PERFUSION STAT 09/13/2020 1:26 Result s for this IMAGING PM BORDER INSPECTOR procedure are i n the results section. CT CHEST WO CONTRAST Routine 09/13/2020 12:50 Res ults for this PM BORDER INSPECTOR procedure are i n the results section. TROPONIN Timed 09/13/2020 11:56 Results for this AM BORDER INSPECTOR procedure are i n the results section. US DUPLEX VENOUS LOWER STAT 09/13/2020 11:00 R esults for this EXTREMITY RIGHT AM BORDER INSPECTOR procedure ar e in the results section. ECG 12-LEAD STAT 09/13/2020 9:59 Results for this AM BORDER INSPECTOR procedure are i n the results section. MAGNESIUM LEVEL STAT 09/13/2020 8:18 Results for this AM BORDER INSPECTOR procedure are i n the results section. ESTIMATED GFR STAT 09/13/2020 8:18 Results fo r this AM BORDER INSPECTOR procedure are i n the results section. TROPONIN STAT 09/13/2020 8:18 Results for this AM BORDER INSPECTOR procedure are i n the results section. BASIC METABOLIC PANEL STAT 09/13/2020 8:18 Re sults for this AM BORDER INSPECTOR procedure are i n the results section. PARTIAL THROMBOPLASTIN STAT 09/13/2020 8:18 R esults for this TIME (PTT) AM BORDER INSPECTOR procedure are i n the results section. PROTHROMBIN TIME WITH STAT 09/13/2020 8:18 Re sults for this INR AM BORDER INSPECTOR procedure are i n the results section. HC COMPLETE BLD COUNT STAT 09/13/2020 8:18 Re sults for this W/AUTO DIFF AM BORDER INSPECTOR procedure are i n the results section. ECG 12-LEAD Routine 09/13/2020 8:14 Results for this AM BORDER INSPECTOR procedure are i n the results section. ECG ED PRELIMINARY Routine 09/13/2020 8:13 Resul ts for this INTERPRETATION AM BORDER INSPECTOR procedure are in the results section. ECG ED PRELIMINARY Routine 09/13/2020 8:13 Resul ts for this INTERPRETATION AM BORDER INSPECTOR procedure are in the results section. [id number] Routine 09/12/2020 MRI BRAIN W WO CONTRAST [...] BASE TO Routine 08/16/2020 MID THIGH after 11/05/2019 Results POC glucose (09/19/2020 8:45 AM BORDER INSPECTOR)Only the most recent of24 resultswithin the time period is included. POC glucose 174 (H) 65 - 99 mg/dL [facility] Comment: HOSPITAL [employer] Name: Germaine Vasquez Device ID: [id number] Chartable: [facility] Notified RN Specimen Blood Performing Organization Address City/[facility] Phon e Number [facility] DEPARTMENT OF PATHOLOGY AND [address] [place] [address] [address] Estimated GFR (09/19/2020 5:30 AM BORDER INSPECTOR)Only the most recent of7 resultswithin the time period is included. [facility] Estimated GFR 39 (A) mL/min/1.73 [facility] Comment: HOSPITAL Catergory Units Interpretation G1 >=90 [...] in 2014. Specimen Plasma Performing Organization Address City/[facility] Phon e Number [facility] DEPARTMENT OF PATHOLOGY AND [address] [place], [place] [address] [address] [address] CBC hemogram (09/19/2020 5:30 AM BORDER INSPECTOR)Only the most recent of2 resultswithin the time period is included. Pathologist Sig nature WBC 6.70 4.50 - 11.00 k/uL [facility] RBC 4.61 4.20 - 5.50 m/uL [facility] HGB 12.0 12.0 - 16.0 g/dL [facility] HCT 36.7 (L) 37.0 - 47.0 % [facility] MCV 79.6 (L) 82.0 - 100.0 fL [facility] MCH 26.0 (L) 27.0 - 34.0 pg [facility] MCHC 32.7 31.0 - 37.0 g/dL [facility] RDW - SD 37.4 37.0 - 55.0 fL [facility] MPV 11.4 8.8 - 13.2 fL [facility] Platelet count 207 150 - 400 k/uL [facility] Nucleated RBC 0.00 /100 WBC [facility] Specimen Plasma Performing Organization Address City/[facility] Phon e Number [facility] DEPARTMENT OF PATHOLOGY AND [address] [place] [address] [phone] [address] Basic metabolic panel (09/19/2020 5:30 AM BORDER INSPECTOR)Only the most recent of7 results within the time period is included. Pathologist Sig nature Sodium 140 135 - 148 mEq/L [facility] Potassium 4.0 3.5 - 5.0 mEq/L [facility] Chloride 104 98 - 112 mEq/L [facility] CO2 24 24 - 31 mEq/L [facility] Anion gap 12@ANIO 7 - 15 mEq/L [facility] BUN 12 8 - 23 mg/dL [facility] Creatinine 1.29 (H) 0.50 - 0.90 mg/dL [facility] Glucose 148 (H) 65 - 99 mg/dL [facility] Calcium 8.7 (L) 8.8 - 10.2 mg/dL [facility] Specimen Plasma Performing Organization Address City/[facility] Phon e Number [facility] DEPARTMENT OF PATHOLOGY AND [address] [place] [address] [phone] [address] XR Chest 1 Vw Portable (09/18/2020 9:37 AM BORDER INSPECTOR)Only the most recent of3 results within the [...] Radiology Results Incoming - 09/18/2020 9:45 AM BORDER INSPECTOR EXAMINATION: XR CHEST 1 VW PORTABLE HISTORY: [...] City/State/ZIP Code Phon e Number [facility] [address] [place] [address] CBC with platelet and differential (09/17/2020 4:10 AM BORDER INSPECTOR)Only the most recent of6 resultswithin the time period is included. WBC 8.54 4.50 - 11.00 [facility] RBC 4.85 4.20 - 5.50 [facility] HGB 12.4 12.0 - 16.0 [facility]/dL [facility] HCT 39.2 37.0 - 47.0 % [facility] MCV 80.8 (L) 82.0 - 100.0 [facility] MCH 25.6 (L) 27.0 - 34.0 pg [facility] MCHC 31.6 31.0 - 37.0 [facility] g/dL [facility] RDW - SD 38.2 37.0 - 55.0 fL [facility] MPV 11.8 8.8 - 13.2 fL [facility] Platelet count 195 150 - 400 k/uL [facility] Nucleated RBC 0.00 /100 WBC [facility] Neutrophils 55.1 39.0 - 69.0 % [facility] Lymphocytes 29.2 25.0 - 45.0 % [facility] Monocytes 9.6 0.0 - 10.0 % [facility] Eosinophils 4.6 0.0 - 5.0 % [facility] Basophils 1.1 (H) 0.0 - 1.0 % [facility] Immature granulocytes 0.4Comment: 0.0 - 1.0 % [facility] "Immature HOSPITAL granulocytes" (promyelocytes , myelocytes, metamyelocytes ) Specimen Plasma Performing Organization Address [facility] Phon e Number [facility] DEPARTMENT OF PATHOLOGY AND [address] [place] [phone] Phosphorus level (09/17/2020 4:10 AM BORDER INSPECTOR)Only the most recent of3 resultswithin the time period is included. Pathologist Sig nature Phosphorus 2.4 2.4 - 4.5 mg/dL [facility] Specimen Plasma Performing Organization Address [facility] Phon e Number [facility] DEPARTMENT OF PATHOLOGY AND [address] [place] [phone] Magnesium level (09/17/2020 4:10 AM BORDER INSPECTOR)Only the most recent of4 resultswithin the time period is included. Pathologist Sig nature Magnesium 1.7 1.6 - 2.4 mg/dL [facility] Specimen Plasma Performing Organization Address [facility] Phon e Number [facility] DEPARTMENT OF PATHOLOGY AND [address] [place] [address] [place] [phone] Surgical pathology request (09/16/2020 4:11 PM BORDER INSPECTOR)Only the most recent of2 resultswithin the time period is included. [facility] DEPARTMENT OF PATHOLOGY AND GENOMIC MEDICINE Surgical pathology See link below for [facility] DEPARTMENT O F report PDF Lab Report PATHOLOGY AND GENOMIC MEDICINE Result status This is Supplemental [facility] DEPARTMENT OF Report for PATHOLOGY AND [id number] GENOMIC MEDICINE Specimen Narrative Performed At NEOGENOMICS [facility] DEPARTMENT OF PATHOLOGY AND GENOMIC LUNG NGS MEDICINE [id number] DOS 09/16/2020 Block B1 Performing Organization Address City/[facility] Phon e Number [facility] DEPARTMENT OF PATHOLOGY AND [address] [place] [phone] GENOMIC MEDICINE BAL cell count and differential (09/16/2020 2:46 PM BORDER INSPECTOR) BAL specimen source MAX BAL [facility] BAL cell count 0.040 m/mL [facility] Comment: HOSPITAL Normal ranges: Nonsmokers: 0.007 - 0.363 Smokers: 0 - 1.31 73% viability, many rbc's present BAL PAMS 3 % [facility] Comment: [facility] Normal ranges: Nonsmokers: 65 - 100 Smokers: 81 - 100 BAL PMNS 83 % [facility] Comment: [facility] Normal ranges: Nonsmokers: 0 - 3 Smokers: 0 - 2 BAL eosinophils 10 % [facility] Comment: HOSPITAL Normal ranges: Nonsmokers: 0 - 1 Smokers: 0 - 1 BAL lymphs 4 % [facility] Comment: HOSPITAL Normal ranges: Nonsmokers: 0 - 10 Smokers: 0 - 5 Specimen Fluid Narrative Performed At [facility] DEPARTMENT OF PATHOLOGY AND GENOMIC MEDICINE Performing Organization Address City/[facility] Phon e Number [facility] DEPARTMENT OF PATHOLOGY AND [address] [place] [address] 0 [facility] MEDICINE [address] [address] Cytology (non-gynecological) request (09/16/2020 1:20 PM BORDER INSPECTOR)Only the most recent of11 resultswithin the time period is included. [facility] DEPARTMENT OF PATHOLOGY AND GENOMIC MEDICINE Cytology See link below [facility] DEPARTMENT OF (non-gynecological) for PDF Lab PATHOLOGY AND report Report GENOMIC MEDICINE Result status This is Final [facility] DEPARTMENT OF Report for PATHOLOGY AND [id number] GENOMIC MEDICINE Specimen Performing Organization Address City/[facility] Phon e Number [facility] DEPARTMENT OF PATHOLOGY AND [address] [place], [place] [phone] 0 GENOMIC MEDICINE Airway (09/16/2020 1:03 PM BORDER INSPECTOR) Narrative Performed At Jaskaran Molina MD 09/16/2020 [...] and 3D if needed) (09/16/2020 10:00 AM BORDER INSPECTOR) Specimen Narrative Performed At [facility] Echo cardiography Report [address] [place] [address] Pat.Name: DAHIANA WEATHERS [employer] [facility].ID: [id number] .Date: 09/16/2020 Refer.MD: ANALI BURGOS MD Exam Time: 9:19:00 AM Study Type:R outine Echo Height: 62in Weight: 148lb BSA: 1.68 m2 Ag e: 1940,80Y Sex: FEMALE BP: 120/56 HR: 73 bpm Sonogr phr: ODILON Friend, RDCS Pat. Stat.:Inpatient Room: [place] [address] Study Status:Final Echo Event ID:[id number] Order ID: [id number] Reason for Study:Syncope Procedures: 2D Echo, Colorflow [...] of 5 mmHg. MEASUREMENTS: 2D Parasternal [place] Ao An 1.9 cm LVPWd 1 cm [...] Radiology Results In - 2019 1:09 PM [facility] Echocardiography Report [address] [place] [address] Pat.Name: DAHIANA WEATHERS Pat.I D: [id number] .Date: 09/16/2020 Refer .MD: ANALI BURGOS MD Exam Time: 9:19:00 AM Study Type:Routine Echo Height: 62in Weigh t: 148lb BSA: 1.68 m2 Age: 3 1940,80Y Sex: FEMALE BP: 120/56 HR: 73 bpm Sonog rphr: Aylin Rodriguez, ODILON, RDCS Pat. Stat.:Inpatient Room: [place] [address] Study Status:Final Echo Event ID:[id number] Order ID: [id number] Reason for Study:Syncope Procedures: 2D Echo, Colorflow [...] of 5 mmHg. MEASUREMENTS: 2D Parasternal [place] Ao An 1.9 cm LVPW d 1 [...] City/State/ZIP Code Phon e Number [facility] [address] [place] [address] CT Chest Wo Contrast (09/16/2020 8:50 AM BORDER INSPECTOR)Only the most recent of2 results within the time period is included. Specimen Narrative Performed At [facility] CLINICAL HISTORY: Veran [...] suspicious for malignant adenopathy. [id number] Procedure Note Interface, Radiology Results Incoming - 09/16/2020 9:37 AM BORDER INSPECTOR EXAMINATION: CT CHEST WO CONTRAST CLINICAL HISTORY: [...] City/State/ZIP Code Phon e Number [facility] [address] [place] [address] ABO and Rh confirmation (09/16/2020 4:25 AM BORDER INSPECTOR) Pathologist Sig nature ABO grouping A [facility] Rh type NEG [facility] Specimen Plasma Performing Organization Address [facility] Phon e Number [facility] DEPARTMENT OF PATHOLOGY AND [address] [place] [address] [phone] [address] B natriuretic peptide (09/16/2020 4:25 AM BORDER INSPECTOR) Pathologist Sig nature BNP 56 0 - 100 pg/mL [facility] Specimen Blood Performing Organization Address City/[facility] Phon e Number [facility] DEPARTMENT OF PATHOLOGY AND [address] [place] [address] [phone] [address] Antibody identification (09/16/2020 1:35 AM BORDER INSPECTOR) Pathologist Sig nature Antibody ID POS, Anti-D [facility] Specimen Performing Organization Address [facility] Phon e Number [facility] DEPARTMENT OF PATHOLOGY AND [address] [place] [address] [phone] [address] Type and screen (09/16/2020 1:35 AM BORDER INSPECTOR) Pathologist Sig nature ABO grouping A [facility] Rh type NEG [facility] Antibody screen (gel) POS [facility] Specimen Plasma Performing Organization Address [facility] Phon e Number [facility] DEPARTMENT OF PATHOLOGY AND [address] [place] [address] [phone] [address] Urine culture (09/15/2020 9:52 PM BORDER INSPECTOR) Urine culture Mixed danny <=10-3 col/cc [facility] IST isolate Comment: HOSPITAL Specimen Information Specimen Source: Urine Specimen Site: Catheterized Specimen Urine - Catheterized Performing Organization Address City/[facility]/ZIP [facility] Phon e Number [facility] DEPARTMENT OF PATHOLOGY AND [address] [place] [address] [phone] [address] Urinalysis screen and microscopy, with reflex to culture (09/15/2020 6:55 PM BORDER INSPECTOR) Specimen site Catheterized [facility] Color, UA Yellow [facility] Appearance, UA Clear [facility] Specific gravity, UA 1.017 1.001 - 1.035 [facility] pH, UA 5.0 5.0 - 8.5 [facility] Protein, UA Negative Negative [facility] Glucose, UA Negative Negative [facility] Ketones, UA Negative Negative [facility] Bilirubin, UA Negative Negative [facility] Blood, UA Negative Negative [facility] Nitrite, UA Negative Negative [facility] Urobilinogen, UA <2.0 <2.0 [facility] Leukocyte esterase, Small (A) Negative [facility] Epithelial cells, UA 2 /HPF [facility] WBC, UA 32 (H) 0 - 4 /HPF [facility] RBC, UA 3 0 - 5 /HPF [facility] Bacteria, UA Few None seen [facility] Yeast, UA None seen [facility] Yeast with None seen [facility] pseudohyphae, [facility] Hyaline casts, UA 20 /LPF [facility] Specimen Urine Performing Organization Address City/[facility] Phon e Number [facility] DEPARTMENT OF PATHOLOGY AND [address] [place] [address] Hemoglobin A1c (09/14/2020 5:30 AM BORDER INSPECTOR) Hemoglobin A1C 9.1 (H) 4.0 - 5.6 % [facility] Comment: HOSPITAL HbA1c cutoffs for diagnosing diabetes: [...] 1 diabetes. Specimen Blood Performing Organization Address City/[facility] Phon e Number [facility] DEPARTMENT OF PATHOLOGY AND [address] [place] [phone] [address] Blood culture, aerobic & anaerobic (09/13/2020 8:40 PM BORDER INSPECTOR)Only the most recent of2 resultswithin the time period is included. Blood culture No growth after 5 days of incubation. JULIAN ALARCON isolate Comment: HOSPITAL Specimen Information Specimen Source: Blood Specimen Site: Left Forearm Specimen Blood Performing Organization Address City/State/[facility] Phon e Number [facility] DEPARTMENT OF PATHOLOGY AND [address] [place] [address] [phone] [address] Troponin (09/13/2020 5:00 PM BORDER INSPECTOR)Only the most recent of3 resultswithin the time period is included. Sammy Ward Troponin 0.012 0.000 - 0.040 JAMES ALARCON Comment: ng/mL HOSPITAL In patients suspected of [...] 0.020 ng/mL Specimen Plasma Performing Organization Address City/State/[facility] Code Phon e Number [facility] DEPARTMENT OF PATHOLOGY AND [address] [place], [place] [phone] [address] COVID-19 qualitative PCR (09/13/2020 3:07 PM BORDER INSPECTOR) Interpretation Negative results do not prec lude 2019-nCoV infection and should not be used as the sole basis for treatment or other patient management decisions. Negative results must be combined with clinical observations, patient history, and epidemiological RAMIREZ information. [facility] COVID-19 qualitative Not-Detected Not-Detecte [facility] PCR result d [facility] COVID-19 qualitative See link below for [facility] PCR PDF Lab [facility] ReportComment: Case HOSPITAL Number: [id number] Specimen Nasopharyngeal swab Performing Organization Address City/State/ZIP Code Phon e Number [facility] DEPARTMENT OF PATHOLOGY AND [address] [place], [place] [address] GENOMIC MEDICINE [facility] [address] [place] [address] [facility] Lung Perfusion Imaging (09/13/2020 1:26 PM BORDER INSPECTOR) Specimen Narrative Performed At PROCEDURE: NM LUNG [...] to the CT study report for details. [facility]-[id number] Procedure Note Interface, Radiology Results Incoming - 09/13/2020 1:56 PM BORDER INSPECTOR PROCEDURE: NM LUNG PERFUSION IMAGING INDICATION: PE [...] to the CT study report for details. [facility]-[id number] Performing Organization Address City/State/ZIP Code Phon e Number [facility] [address] [facility]. [place] [id number] Us duplex venous lower extremity (09/13/2020 11:00 AM BORDER INSPECTOR) Specimen Narrative Performed At [facility] V[facility] U ltrasound Laboratory Lower Extr emity Venous Report [address], [address], [place] [address] Pat.Name: DAHIANA WEATHERS Pat.ID: [id number] .Date: 09/13/2020 Refer.MD: CAS PATE MD, RAHEEM PEREZ, ALEX Genao MD Exam Time: 10:32:00 AM Study Type:LE Venous Height: 62in Weight: 148lb BSA: 1.68 m2 Ag e: 1940,80Y Sex: FEMALE Sonogrphr: Freddie Wright, RVS, Tong Gutierrez RDMS, RVT Pat. Stat.:Inpatient Room: ED19 Tape Vol: CM, CPT - 4: 73676 Echo Event ID:[id number] Order ID: [id number] Reason for Study:Leg swelling or pain, D [...] Signed 09/13/2020 03:09 PM Santiago Samson MD, RPVI Procedure Note Interface, Radiology Results In - 2019 3:09 PM [facility] Vascular Ultrasound Laboratory Lower Extremity Veno us Report [address] [place] [address] Pat.Name: DAHIANA WEATHERS Pat.I D: [id number] .Date: 09/13/2020 Refer.MD: CAS PATE MD, FARHAT Jurado, ALEX Genao MD Exam Time: 10:32:00 AM Study Type:LE Venous Height: 62in Weigh t: 148lb BSA: 1.68 m2 Age: 3 1940,80Y Sex: FEMALE Sonogrphr: TITO Koroma, Tong Gutierrez RDMS, RVT Pat. Stat.:Inpatient Room: ED19 Tape Vol: CM, CPT - 4: 62999 Echo Event ID:[id number] Order ID: [id number] Reason for Study:Leg swelling or pain, D [...] visualized veins. Results given to Dr. Parsons 0830 PHYSICIAN INTERPRETATION: Venous examination of the right lower ex tremity and left groin demonstrated no evidence of venous throm bosis in the visualized veins. Normal compressibility and augmentation of all veins visualized. FINDINGS: Signed 09/13/2020 03:09 PM Santiago Samson MD, [facility] Performing Organization Address City/[facility] e Number [facility] [address] [place] [address] ECG 12 lead (09/13/2020 9:59 AM BORDER INSPECTOR)Only the most recent of2 resultswithin the time period is included. Pathologist Sig nature Ventricular rate 93 [facility] MUSE Atrial rate 93 [facility] M[facility] AL interval 128 [facility] M[facility] QRSD interval 74 [...] is no t available. Performing Organization Address City/State/[facility] Code Phon e Number [facility] MUSE [address] [place] [address] Partial thromboplastin time, activated (09/13/2020 8:18 AM BORDER INSPECTOR) PTT 24.1 23.0 - 36.0 [facility] Comment: [facility] PTT therapeutic range for unfractionated heparin is 61.0-112.0 seconds which corresponds to Anti-Xa 0.3-0.7 U/ml. Specimen Blood Performing Organization Address City/[facility]/ZIP [facility] Phon e Number [facility] DEPARTMENT OF PATHOLOGY AND [address] [place] [address] [phone] [address] Prothrombin time with INR (09/13/2020 8:18 AM BORDER INSPECTOR) Pathologist [facility] Prothrombin time 14.5 11.5 - 14.5 [facility] INR 1.1 [facility] Comment: AGNES The International Normalized Ratio (INR) is a [facility] HOSPITAL monitoring tool for patients who are stable on oral anticoagulant therapy. An INR of 2.0-3.0 is suggested for deep vein thrombosis/pulmonary embolism. Specimen Blood Performing Organization Address City/[facility] Phon e Number [facility] DEPARTMENT OF PATHOLOGY AND [address] [place] [address] [place] [address] ECG ED Preliminary Interpretation - Not an Order (09/13/2020 8:13 AM BORDER INSPECTOR)Only the most recent of2 resultswithin the time period is included. Narrative Performed At Alex Leo MD 6:44 AM ECG ED Preliminary Interpretation - Not an Order Performed by: Alex Leo MD Authorized by: Alex Leo MD ECG reviewed by ED Physician in the abse nce of a research group director: yes Interpretation: Interpretation: abnormal Rate: ECG rate: [...] not been [facility] interpreted by a [facility] Provider. T he exam was imported into our imaging system. Performing Organization Address City/[facility]/ZIP Code Phon e Number [facility] [address] [place] [address] PET/CT Skull Base To Mid Thigh (08/29/2020)Only the most recent of2 results within the time period is included. Narrative Performed At This result has an attachment that is no t available. NM Bone Scan External Study (08/16/2020 10:39 AM CDT) Specimen Narrative Performed At This exam was not acquired at a [facility] facility and has not been [facility] interpreted by a [facility] Provider. T he exam was imported into our imaging system. Performing Organization Address City/[facility] Code Phon e Number [facility] [address] [place] [address] CT Chest External Study (08/16/2020 8:43 AM CDT) Specimen Narrative Performed At This exam was not acquired at a [facility] facility and has not been [facility] interpreted by a [facility] Provider. T he exam was imported into our imaging system. Performing Organization Address [facility] Phon e Number [facility] [address] [place] [address] CT Chest Wo Contrast Abdomen Wo Contrast Pelvis Wo Contrast (08/16/2020) Narrative Performed At This result has an attachment that is no t available. after 11/05/2019
--- OUTSIDE RECORDS SUMMARY | 2020-11-05 11:02 | XMS REPORT | Continuity of Care Document ---
:1940 Author Organization [facility] t Address [address] [place] [address] Care Team Providers Name Role Phone Yanick [...] Expiration Date Sour ce Number UHC MEDICAREUHC [id number] 2020 [place] MEDICARE 00:00:00 Christian HMO/[id number] -Present [place] Problems Condition Condition Condition Status Onset Resolution Last Treating Co mments Source Name Details Category Date Date Treatment Clinician Date Syncope Syncope Disease Active 2019-11 [place] and and 11-13 [facility] collapse collapse 00:00: st 00 Syncope Syncope Disease Active 2019-11 [place] 11-13 Methodi 00:00: st 00 Lung mass Lung mass Disease Active 2019-11 Overview: [place] 0 Added Methodi 00:00: automatic st 00 ally from request for surgery [id number] Allergies, Adverse Reactions, Alerts Allergy Allergy Status Severity Reaction(s) Onset Inactive Treating Comm ents Source Name Type Date Date Clinician Iodine Propensi Active Rash 2019-11 [place] And ty to 11-13 Method[facility] Iodide adverse 00:00: st Containi reaction 00 ng s to Products drug Iodine Propensi Active Hives [place] ty to 05-18 [facility] adverse 00:00: st reaction 00 s to drug Social History Social Habit Start Date Stop Date Quantity Comments Source History [facility] Meth odist Alcohol Std Drinks History [facility] Meth odist Alcohol Binge Sex Assigned At [facility] ethodist Tobacco use and 2020-09-18 2020-09-18 Never used [facility] ethodist exposure 00:00:00 00:00:00 Alcohol intake 2020-09-18 2020-09-18 Lifetime [facility] thodist 00:00:00 00:00:00 non-drinker (finding) History SDOH 2020-08-30 2020-08-30 1 [place] Meth odist Alcohol Frequency 00:00:00 00:00:00 Smoking Status Start Date Stop Date Source Never smoker [place] Methodis t Medications Ordered Filled Start Stop Current Ordering Indication Dosage Frequency Signature Comments Components Source Medication Medication Date Date Medication? Clinician (SIG) Name Name hyoscyamine 2019-11 2020- No 1{tbl} Q.22944682 Take 1 [place] sulfate 11-19 [id number] tablet by Methodi 0.125 mg 10:27: 00:00 [...] mL) insulin pen dicyclomine 2019-11 Yes 20mg Q.28026541 Take 20 mg Bejarano (BENTYL) 20 - [id number] by mouth 3 Methodi mg tablet 10:27: [...] escitalopra Yes 20mg QD Take 20 mg Ebjarano m (LEXAPRO) 07-29 by mouth Meth tico 20 MG 00:00: daily. st tablet 00 clonIDINE 2020- No .1mg Q.45990882 Take 0.1 Bejarano (CATAPRES) 07-26 11-19 [id number] mg by M ethodi 0.1 MG 00:00: 00:[address] tablet 00 :00 (three) times a day. methscopola 2019- No 5mg QD Take 5 mg Bejarano mine 30 09-19 by mouth Methodi (PAMINE 00:00: 00:[address] FORTE) 5 MG 00 :00 tablet insulin 2019- Yes 8U Q.08086287 Inject 8 Bejarano ASPART 5-26 [id number] Units Method i (NovoLOG) 00:00: 3D under the st 100 unit/mL 00 skin 3 (3 mL) (three) insulin pen times a day with meals. insulin 2019-2019- No 36U Inject 36 [place] degludec 5-26 - Units Methodi 100 unit/mL 00:00: 00:[address] (3 mL) 00 :00 skin. insulin pen furosemide 2019- No 20mg QD Take 20 mg Bejarano (LASIX) 40 409-19 by mouth Meth tico mg tablet 00:00: [...] blood 2020-09-19 07:23:34 144 mm[Hg] Gera n Christian pressure Diastolic blood 2020-09-19 07:23:34 60 mm[Hg] Farnaz on Christian pressure Heart rate 2020-09-19 07:23:34 53 /min Darci Joya Body temperature 2020-09-19 07:23:34 36.83 Dawna Fuad ton Christian Respiratory rate 2020-09-19 07:23:34 18 /min Fuad [...] 1 VW PORTABLE 2020-09-18 09:37:58 Eagle Serra Christian POC GLUCOSE 2020-09-18 08:31:00 Hendrix, Adalid Que [...] hodist POC GLUCOSE 2020-09-17 13:04:00 Hendrix, Adalid Grey Bejarano Met hodist POC GLUCOSE 2020-09-17 08:19:00 Hendrix, Adalid Que Bejarano Met hodist HC COMPLETE BLD COUNT 2020-09-17 04:10:00 Flory Hoffman W/AUTO DIFF BASIC METABOLIC PANEL 2020-09-17 04:10:00 Flory Hoffman MAGNESIUM LEVEL 2020-09-17 04:10:00 Flory Hoffman Me thodist PHOSPHORUS LEVEL 2020-09-17 04:10:00 Flory Hoffman M ethodist ESTIMATED GFR 2020-09-17 04:10:00 Adalid Hendrix Met hodist POC GLUCOSE 2020-09-16 22:05:00 HendrixAdalid farah Met hodist XR CHEST 1 VW PORTABLE 2020-09-16 20:58:39 Flory Hoffman Christian POC GLUCOSE 2020-09-16 17:59:00 Hendrix, Adaliddaneil Bejarano Met hodist XR CHEST 1 VW PORTABLE 2020-09-16 16:27:11 Flory Hoffman Christian SURGICAL PATHOLOGY 2020-09-16 16:11:00 Hendrix, Adalid Bejarano Christian REQUEST BAL CELL COUNT AND 2020-09-16 14:46:00 HendrixAdalid farah Christian DIFFERENTIAL CYTOLOGY 2020-09-16 13:20:00 HendrixAdalid farah Met hodist (NON-GYNECOLOGICAL) REQUEST CT AN ELECTIVE 2020-09-16 13:03:19 Jaskaran Molina Meth odist ENDOTRACHEAL AIRWAY CYTOLOGY 2020-09-16 10:45:00 Hendrix, Adalid Bejarano Met hodist (NON-GYNECOLOGICAL) REQUEST CYTOLOGY 2020-09-16 10:44:00 HendrixAdalid farah Met hodist (NON-GYNECOLOGICAL) REQUEST TTE COMPLETE, W CONTRAST, 2020-09-16 10:00:00 Kendra Penaist W DOPPLER ([id number]) [place] POC GLUCOSE 2020-09-16 09:16:00 [address] h[address]ist [address] CHEST WO CONTRAST 2020-09-16 08:50:00 Apple Agarwal Christian [place] CYTOLOGY 2020-09-16 06:12:00 HendrixAdalid farah Met hodist (NON-GYNECOLOGICAL) REQUEST HC COMPLETE BLD COUNT 2020-09-16 04:25:00 Flory Hoffman Christian W/AUTO DIFF B NATRIURETIC PEPTIDE 2020-09-16 04:25:00 Cipriano Powell Christian Finesse ABO AND RH CONFIRMATION 2020-09-16 04:25:00 Alea Osborneist POC GLUCOSE 2020-09-16 04:25:00 Burgos, Anali Faganist BASIC METABOLIC PANEL 2020-09-16 04:00:00 HoffmanFlory matos Christian MAGNESIUM LEVEL 2020-09-16 04:00:00 HoffmanFlory matos Me thodist PHOSPHORUS LEVEL 2020-09-16 04:00:00 Flory Hoffman ethodist ESTIMATED GFR 2020-09-16 04:00:00 Burgos, Anali Faganist TYPE AND SCREEN 2020-09-16 01:35:00 Alea Osborne ANTIBODY IDENTIFICATION 2020-09-16 01:35:00 Burgos, Anali Faganist POC GLUCOSE 2020-09-16 01:06:00 Burgos, Anali Joya URINE CULTURE 2020-09-15 21:52:00 Darci Fritz Meth odmilly Ryan POC GLUCOSE 2020-09-15 20:59:00 Burgos, Anali Faganist URINALYSIS SCREEN AND 2020-09-15 18:55:00 Nwogu, Kendra Osei on Christian MICROSCOPY, WITH REFLEX [place] TO CULTURE POC GLUCOSE 2020-09-15 17:11:00 Burgos, Anali Faganist POC GLUCOSE 2020-09-15 11:52:00 Burgos, Anali Bejarano Christian POC GLUCOSE 2020-09-15 08:08:00 Burgos, Anali Joya HC COMPLETE BLD COUNT 2020-09-15 04:50:00 HoffmanFlory matos Christian W/AUTO DIFF BASIC METABOLIC PANEL 2020-09-15 04:50:00 HoffmanFlory matos Christian MAGNESIUM LEVEL 2020-09-15 04:50:00 Flory Hoffman Me thodist PHOSPHORUS LEVEL 2020-09-15 04:50:00 Flory Hoffman ethodist ESTIMATED GFR 2020-09-15 04:50:00 Burgos, Anali Bejarano Christian POC GLUCOSE 2020-09-14 21:19:00 Burgos, Anali Bejarano Christian POC GLUCOSE 2020-09-14 17:11:00 Burgos, Anali Bejarano Christian POC GLUCOSE 2020-09-14 13:39:00 Burgos, Anali Grey Bejarano Christian HC COMPLETE BLD COUNT 2020-09-14 08:44:00 Kendra Pena on Christian W/AUTO DIFF [place] BASIC METABOLIC PANEL 2020-09-14 07:08:00 NwoguKendra on Christian [place] ESTIMATED GFR 2020-09-14 07:08:00 Burgos, Anali Bejarano Christian POC GLUCOSE 2020-09-14 07:08:00 Burgos, Anali Dorseyh Que Bejarano Christian HEMOGLOBIN A1C 2020-09-14 05:30:00 Clark Castro [place] Christian HC COMPLETE BLD COUNT 2020-09-14 05:30:00 Aubrey, Anali Alejandre Que Cal moni Christian W/AUTO DIFF BLOOD CULTURE, AEROBIC & 2020-09-13 20:40:00 Kendra Pena Christian ANAEROBIC [place] POC GLUCOSE 2020-09-13 19:28:00 Burgos, Anail Grey Bejarano Christian TROPONIN 2020-09-13 17:00:00 Darci Fritz Meth jhonathan Johnson R. COVID-19 QUALITATIVE PCR 2020-09-13 15:07:00 Franny Fritz R. NM LUNG PERFUSION IMAGING 2020-09-13 13:26:[address] CHEST WO CONTRAST 2020-09-13 12:50:00 Apple Agarwal Christian [place] TROPONIN 2020-09-13 11:56:00 Darci Fritz Meth odmilly Johnson R. US DUPLEX VENOUS LOWER 2020-09-13 11:00:00 Farnaz Fritz on Christian EXTREMITY RIGHT Alex R. ECG 12-LEAD 2020-09-13 09:59:35 Radha Nunn on Christian HC COMPLETE BLD COUNT 2020-09-13 08:18:00 Gera Fritz n Christian W/AUTO DIFF Alex R. PROTHROMBIN TIME WITH INR 2020-09-13 08:18:00 Cal Fritz Alex R. PARTIAL THROMBOPLASTIN 2020-09-13 08:18:00 Farnaz Fritz on Christian TIME (PTT) Alex RTony BASIC METABOLIC PANEL 2020-09-13 08:18:00 Gera Fritzist Alex R. TROPONIN 2020-09-13 08:18:00 CrescenciocharlotteDarci willson Meth odist Alex R. ESTIMATED GFR 2020-09-13 08:18:00 Ahmet Bejarano Meth odist Alex R. MAGNESIUM LEVEL 2020-09-13 08:18:[facility] [place] Meth odist Alex R. ECG 12-LEAD 2020-09-13 08:14:16 Ahmet Bejarano Meth odist Alex R. ECG ED PRELIMINARY 2020-09-13 08:13:29 Crescenciocharity [facility] INTERPRETATION Alex Ryan [id number] 2020-09-12 00:00:00 Provider, Shanika Joya MRI BRAIN [...] Future Scheduled 2020-06-01 INFLUENZA VACCINE Gera horan Christian Test 00:00:00 [code = INFLUENZA VACCINE] Future Scheduled 2005-01-04 65+ PNEUMOCOCCAL Darci Christian Test 00:00:00 VACCINE (1 of 1 - PPSV23) [code = 65+ PNEUMOCOCCAL VACCINE (1 of 1 - PPSV23)] Future Scheduled 1990-01-04 SHINGLES VACCINES (#1) [place] Christian Test 00:00:00 [code = SHINGLES VACCINES (#1)] Future Scheduled 1956 COVID-19 VACCINE (#1) [place] Christian Test 00:00:00 [code = COVID-19 VACCINE (#1)] Future Scheduled 1950-01-04 DIABETES: RETINAL EYE [place] Christian Test 00:00:00 EXAM [code = DIABETES: RETINAL EYE EXAM] Future Scheduled 1950-01-04 DIABETIC FOOT EXAM [place] Christian Test 00:00:00 [code = DIABETIC FOOT EXAM] Encounters Start End Encounter Admission Attending Care Care Encounter Source Date/Time Date/Time Type Type Clinicians Facility Department ID 2020-10-18 2020-10-18 Office Kale [facility] [id number] 20 16:20:54 16:53:41 Visit Thomas Hayward [id number] [place] [id number] Karen [id number] [facility]9 [facility] 2020-09-13 2020-09-19 Inpatient HENDRIX, [facility] [id number] [place] 00:00:00 00:00:00 ADALID [address] 2020-08-30 2020-08-30 Outpatient SCHMIDT, [facility] [id number] [place] 00:00:00 00:00:00 EDWARD [address] 2020-08-30 2020-08-30 [facility] [id number] [place] 00:00:00 00:00:00 EDWARD [address] 2020-08-30 2020-08-30 Outpatient SCHMIDT, [facility] [id number] [place] 00:00:00 00:00:00 EDWARD [address] 2020-08-30 2020-08-30 Outpatient SCHMIDT, [facility] [id number] [place] 00:00:00 00:00:00 EDWARD [address] 2016-06-15 2016-06-15 Emergency [facility] 064 [id number] [place] 00:00:00 00:00:[address] 2016-06-09 2016-06-11 Outpatient POPPY PRADO [facility] 012 [id number] [place] 00:00:00 00:00:[address] 2015-12-31 2015-12-31 Outpatient SHAN, [facility] [id number] [place] 00:00:00 00:00:00 BRETT [address] 2015-12-30 2015-12-30 Outpatient ARIEL [facility] [id number] [place] 00:00:00 00:00:00 BRETT [address] Results Test Description Test Time Test Comments Results Result Comments Source Surgical pathology request 2020-10-07 16:51:20 Test Item Value Reference Range Interpretation Comme nts Case number (test code = 4132406) [id number] Surgical pathology report (test code See link below for PDF Finished Stock Inspector ort = 2255) Result status (test code = 2095452) This is Supplemental Report for [id number] JAIRO (test code = JAIRO) RADHA [id number] 09/16/2020Block B1 [facility] snzdcdz5608-86-17 08:45:47 Test Item Value Reference Range Interpretation Comments POC glucose (test 174 mg/dL 65-99 H Bin Operator N paulette: Shittu code = 95658-6) Keyaunmiginger Device ID: [id number] able: [facility] Notified immigration services officer Interpretation Abnormal (test code = 26958-8) [facility] rzlqplqu6136-39-61 08:05:46 Test Item Value Reference Range Interpretation Comments WBC (test code = 46408-3) 6.70 4.50- 11.00 k/uL RBC (test code = 49352-4) 4.61 m/uL 4.2-5.5 HGB (test code = 718-7) 12.0 g/dL 12-16 HCT (test code = 4544-3) 36.7 % 37-47 L MCV (test code = 787-2) 79.6 fL 82-100 L MCH (test code = 785-6) 26.0 pg 27-34 L MCHC (test code = 786-4) 32.7 g/dL 31-37 RDW - SD (test code = 05428-6) 37.4 fL 37-55 MPV (test code = 29964-7) 11.4 fL 8.8-13.2 Platelet count (test code = 207 150- 400 k/uL 79380-0) Nucleated RBC (test code = 0.00 /100 WBC 87880-2) Lab Interpretation (test code = Abnormal 31303-1) Bejarano MethodistBasic metabolic eiqsk7854-13-30 07:59:07 Test Item Value Reference Range Interpretation Comments Sodium (test code = 2951-2) 140 135- 148 mEq/L Potassium (test code = 2823-3) 4.0 3.5- 5.0 mEq/L Chloride (test code = 2075-0) 104 98- 112 mEq/L CO2 (test code = 2027-9) 24 24- 31 mEq/L Anion gap (test code = 70432-8) 12@ANIO 7- 15 mEq/L BUN (test code = 3094-0) 12 mg/dL 8-23 Creatinine (test code = 2160-0) 1.29 mg/dL 0.5-0.9 H Glucose (test code = 2345-7) 148 mg/dL 65-99 H Calcium (test code = 49593-5) 8.7 mg/dL 8.8-10.2 L Lab Interpretation (test code = Abnormal 19591-8) Bejarano MethodistEstimated [id number] 07:59:07 Test Item Value Reference Range Interpretation Comments Estimated GFR (test 39 mL/min/1.73 m2 Jude Derrick bella Units code = 5488) InterpretationG 1 >=90 Claudia l or highG2 60-89 Mildly decrease dG3a 45-59 Mil dly to moderately decr ttxrfH1p 30-44 Moderately to s everely decreasedG4 15-29 Severe ly decreasedG5 <15 Kidney skye lureThe eGFR was calcul ated using the Chron ic Kidney Disease Epidemiology Collaboration ( CKD-EPI) equation. Interpretation is based on recommendati ons of the National Ki dney Foundation-Kidn ey Disease Outcome s Quality Initiat lona (NKF-KDOQI) pub lished in 2013. Lab Interpretation Abnormal (test code = 49287-6) Bejarano MethodistBlood culture, aerobic & zgibwdvpt0722-33-82 02:03:08 Test Item Value Reference Range Interpretation Comments Blood culture No growth Specimen isolate (test after 5 days InformationSpe cimen code = 600-7) of Source: BloodS pecimen incubation. Site: Left Fore arm [place] MethodistXR Chest 1 Vw Fswhebdc8686-16-97 09:42:47Hm Interface, Radiology Results Incoming - 09/18/2020 9:45 [...] of cervicothoracic spine partially visualized.1D2RAD_PS02[place] MethodistCytology (non-gynecological) hjcvtah4282-42-05 20:12:25 Test Item Value Reference Range Interpretation Comments Case number (test code = [id number]) Cytology See link below for (non-gynecological) PDF Lab Report report (test code = 1178) Result status (test code This is Final Report = [id number]) for [id number] [place] MethodistMagnesium apcip1372-04-76 08:07:08 Test Item Value Reference Range Interpretation Comments Magnesium (test code = 76058-3) 1.7 mg/dL 1.6-2.4 [place] MethodistPhosphorus skcgd6578-00-70 08:07:05 Test Item Value Reference Range Interpretation Comments Phosphorus (test code = 2777-1) 2.4 mg/dL 2.4-4.5 [place] MethodistCBC with platelet and vbzecroeafdw1690-90-12 06:16:54 Test Item Value Reference Range Interpretation Comments WBC (test code = 41614-9) 8.54 4.50- 11.00 k/uL RBC (test code = 01449-3) 4.85 m/uL 4.2-5.5 HGB (test code = 718-7) 12.4 g/dL 12-16 HCT (test code = 4544-3) 39.2 % 37-47 MCV (test code = 787-2) 80.8 fL 82-100 L MCH (test code = 785-6) 25.6 pg 27-34 L MCHC (test code = 786-4) 31.6 g/dL 31-37 RDW - SD (test code = 38.2 fL 37-55 09200-1) MPV (test code = 35761-1) 11.8 fL 8.8-13.2 Platelet count (test code 195 150- 400 k/uL = 07335-4) Nucleated RBC (test code 0.00 /100 WBC = 58602-1) Neutrophils (test code = 55.1 % 39-69 11784-8) Lymphocytes (test code = 29.2 % 25-45 84935-5) Monocytes (test code = 9.6 % 0-10 25910-0) Eosinophils (test code = 4.6 % 0-5 62613-4) Basophils (test code = 1.1 % 0-1 H 34730-6) Immature granulocytes 0.4 % 0-1 "Immat ure (test code = 52043-0) granul ocytes" (promyelocytes, myelocytes, metamyelocytes) Lab Interpretation (test Abnormal code = 57145-6) Darci JoyaUrine rwlsaxw5062-64-21 00:54:02 Test Item Value Reference Range Interpretation Comments Urine culture Mixed danny Specimen isolate (test <=10-3 col/cc InformationSp ecimen code = 25041-3) Source: [facility] Bejar[facility] ChristianBAL cell count and kajueplisswz7442-97-81 21:40:34 Test Item Value Reference Range Interpretation Comments BAL specimen source MAX BAL (test code = 35199-1) BAL cell count (test 0.040 m/mL Normal ranges: code = 15270-4) Nonsmokers: 0.007 - 0.363 Smokers: 0 - 1. 31 73% viability, many rbc's present BAL PAMS (test code = 3 % Normal ranges: 63795-1) Nonsmokers: 65 - 100 Smokers: 81 - 1 00 BAL PMNS (test code = 83 % Normal ranges: 9306-2) Nonsmokers: 0 - 3 Smok ers: 0 - 2 BAL eosinophils (test 10 % Normal ranges: code = 60822-6) Nonsmokers: 0 - 1 Smok ers: 0 - 1 BAL lymphs (test code = 4 % Norm al ranges: 40200-9) Nonsmokers: 0 - 10 Smo kers: 0 - 5 JAIRO (test code = JAIRO) BAL MAX Bejarano MethodistTransthoracic Echocardiogram Complete, (w Contrast, Strain and 3D if needed)2020-09-16 13:08:00Interface, Radiology Results In - 09/16/2020 1:[address] [facility] Echocardiography Report [address] [facility], [place] [address], [place] [address] [facility].Name: FRANTZ WEATHERS Pat.ID: [id number].Date: 09/16/2020 Refer.MD: ANALI BURGOS MDExam Time: 9:19:00 AM Study Type:Routine Echo Height: 62in Weight: 148lb BSA: 1.68 m2 Age: 3 1940,80Y Sex: FEMALE BP: 120/56 HR: 73 bpm Sonogrphr: Aylin Rodriguez, ODILNO, [facility] Pat. Stat.:Inpatient Room: [place] [address] Study Status:Final Echo Event ID:[id number] Order ID: [id number] Reason for Study:Syncope Procedures: 2D Echo, Colorflow [...] of 5 mmHg. MEASUREME NTS: 2DParasternal Long Circle AoAn 1.9 cm LVPWd 1 cm Ao [...] SVi 41 ml/m2 TV Pressure Gradient TV ScZvj334 cm/s TV PG 27 mmHg WALL MOTION:-------- RESTING WALL MOTION:Basal Inferoseptal wall is hypokinetic. Normal wall motion in allother carrington.Wall Index = 1.1Signed 09/16/2020 01:08 PMMarie Tapia TfgpxmwdpGrxrky0471-07-25 13:03:19 Jaskaran Molina MD 09/16/2020 1:05 PMAirway [...] Attempts at Approach: 1[place] MethodistCT Chest Wo Mainrurn5097-21-75 09:34:07Hm Interface, Radiology Results Incoming - 09/16/2020 [...] susp icious for malignant adenopathy. 1D2RAD_PS02[place] MethodistAntibody mbjlkukkeqyxxy0227-63-25 06:07:00 Test Item Value Reference Range Interpretation Comments Antibody ID (test code = 91621-6) POS, Anti-D [place] MethodistABO and Rh wyvbjwxfchhp9464-99-58 06:06:00 Test Item Value Reference Range Interpretation Comments ABO grouping (test code = 883-9) A Rh type (test code = 56921-4) NEG [place] MethodistB natriuretic ajryrzp3456-32-50 05:53:02 Test Item Value Reference Range Interpretation Comments BNP (test code = 98079-6) 56 pg/mL 0-100 [place] MethodistType and kjevzh6114-00-80 03:03:00 Test Item Value Reference Range Interpretation Comments ABO grouping (test code = 883-9) A Rh type (test code = 97091-8) NEG Antibody screen (gel) (test code = POS 890-4) [place] MethodistUrinalysis screen and microscopy, with reflex to culture 2020-09-15 22:06:01 Test Item Value Reference Range Interpretation Comments Specimen site (test code = Catheterized 8997113) Color, UA (test code = 5778-6) Yellow Appearance, UA (test code = Clear 5767-9) Specific gravity, UA (test code 1.017 1.001-1.035 = 5811-5) pH, UA (test code = 5803-2) 5.0 5.0-8.5 Protein, UA (test code = Negative Negative 24040-2) Glucose, UA (test code = Negative Negative 95233-1) Ketones, UA (test code = 2514-8) Negative Negative Bilirubin, UA (test code = Negative Negative 5770-3) Blood, UA (test code = 5794-3) Negative Negative Nitrite, UA (test code = 5802-4) Negative Negative Urobilinogen, UA (test code = <2.0 <2.0 00461-7) Leukocyte esterase, UA (test Small Negative A code = 5799-2) Epithelial cells, UA (test code 2 /HPF = 5787-7) WBC, UA (test code = 5821-4) 32 0- 4 /HPF H RBC, UA (test code = 09637-8) 3 0- 5 /HPF Bacteria, UA (test code = Few None seen 14271-6) Yeast, UA (test code = 15116-0) None seen Yeast with pseudohyphae, UA None seen (test code = 34441-5) Hyaline casts, UA (test code = 20 /LPF 5796-8) Lab Interpretation (test code = Abnormal 77808-7) Darci JoyaHemoglobin [id number] 11:41:57 Test Item Value Reference Range Interpretation Comments Hemoglobin A1C (test 9.1 % 4-5.6 H HbA1c c utoffs for code = 46529-7) diagnosing diabetes:4.0% - 5.6% = normal5.7% - 6.4% = increased risk for diabetes (prediabetes)9> =6.5% = fscihsff8Izjn s for glycemic contro l (ADA 2016)< 7.0% Ta rget for non adults with ganesh betes. More or less stringent targe ts may be appropriate for individual tamar ents. <7.5% Target for Children and adolescents wit h type 1 diabetes. Lab Interpretation (test Abnormal code = 41276-3) Darci JoyaCOVID-19 qualitative [id number] 20:21:50 Test Item Value Reference Range Interpretation Comments Interpretation (test Negative results do code = 8050858) not preclude 2019-nCoV infection and should not be used as the sole basis for treatment or other patient management decisions. Negative results must be combined with clinical observations, patient history, and epidemiological information. COVID-19 qualitative Not-Detected Not-Detected PCR result (test code = 29403-5) COVID-19 qualitative See link below for C ase Number: PCR (test code = PDF Lab Report [id number]) Darci Mejía 12 [id number] 19:27:22 Test Item Value Reference Range Interpretation Comments Ventricular rate (test 93 code = 253) Atrial rate (test code 93 = 255) CT interval (test code 128 = 266) QRSD [...] are now present-QRS axis shifted left- Darci DaleAkuhxwotfYxzzzjyh7645-01-60 18:10:56 Test Item Value Reference Range Interpretation Comments Troponin (test code 0.012 ng/mL 0-0.04 In patie nts suspected = 00537-2) of having a rochelle cardial infarction, nelly [...] decreased by le ss than 0.020 ng/mL [facility] duplex venous lower osfqcxetv3407-42-93 15:09:00Interface, Radiology Results In - 09/13/2020 3:[address] [facility] Vascular Ultrasound Laboratory Lower Extremity Venous Uuyrcm[address] [address] Pat.Name: FRANTZ WEATHERS Pat.ID: [id number] .Date: 09/13/2020 Refer.MD: CAS PATE MD, ALEX FRITZ MDExraven Time: 10:32:00 AM Study Type:LE Venous Height: 62in Weight: 148lb BSA: 1.68 m2 Age: 3 1940,80Y Sex: FEMALE Sonogrphr: TITO Koroma, Tong Gutierrez, RDMS, RVTPat. Stat.:Inpatient Room: ED19 Tape Vol: CM, CPT - 4: 56023 Echo Event ID:[id number] Order ID: [id number] Reason for Study:Leg swelling or pain, DVT [...] 09/13/2020 03:09 PMZsolt Chapin MD, RPVI Darci JoyaDE Lung Perfusion Vqdtkix4536-62-68 13:53:35Hm Interface, Radiology Results 09/13/2020 1:56 PM CSTPROCEDURE: DE LUNG PERFUSION IMAGINGINDICATION: PE suspected low pretest [...] refer to the CT study report for details.[facility]-[id number] MethodistPartial thromboplastin time, activated 2020-09-13 09:09:09 Test Item Value Reference Range Interpretation Comments PTT (test code = 24.1 23.0- 36.0 [place] [address]-2) unfractionated heparin is61.0-112.0 se conds which corresponds to Anti-Xa0.3-0.7 U/ml. Darci JoyaProthrombin time with IVV8118-80-38 09:08:33 Test Item Value Reference Range Interpretation Comments Prothrombin time (test 14.5 11.5- 14.5 sec code = 5902-2) INR (test code = 1.1 The Interna tional 29327-0) Normalized Rati o (INR) is a therapeutic m onitoring tool for patien ts who are stable on oral anticoagulant t herapy. An INR of 2.0-3.0 is suggested for d eep vein thrombosis/pulm onary embolism. [facility] ED Preliminary Interpretation - Not an [id number] 08:13:29 Test Item Value Reference Range Interpretation Comments JAIRO (test code = JAIRO) Alex Fritz MD 09/14/2020 6:44 [facility] ED Preliminary Interpretation - Not an OrderPerformed by: Alex Fritz MDAuthorized by: Alex Fritz MD ECG reviewed by ED Physician in the absence of a agriculture professor: yes Interpretation: Interpretation: abnormal Rate: ECG rate: 88 ECG rate assessment: normal Rhythm: Rhythm: sinus rhythm Ectopy: Ectopy: PVCs PVCs: FrequentQRS: QRS axis: Normal QRS intervals: NormalConduction: Conduction: normal ST segments: ST segments: NormalT waves: T waves: normal Comments: Prolonged QT Lab Interpretation Abnormal (test code = 27660-6) [place] [facility] [id number] 10:45:49This exam was not acquired at a [facility] facility and has not been interpreted by a [facility] Provider. The exam was imported into our imaging system.[facility] Bone Scan External [id number] 10:45:27This exam was not acquired at a [facility] facility and has not been interpreted by a [facility] Provider. The exam was imported into our imaging system.[facility] Whole Body External [id number] 10:45:06This exam was not acquired at a [facility] facility and has not been interpreted by a [facility] Provider. The exam was imported into our imaging system.[facility]
[2020-11-05] MEDS ORDERED: propofoL 200 MG/20 ML VIAL IV ONE (11:25)
[2020-11-05] MEDS ORDERED: FENTANYL CITR 100 MCG/2 ML ONE (11:25)
[2020-11-05] MEDS ORDERED: LIDOCAINE 2% MPF 5 ML VIAL ONE (11:25)
[2020-11-05] MEDS ORDERED: ONDANSETRON 4 MG/2 ML VIAL ONE (11:27)
--- NOTE | 2020-11-05 11:33 | RAD REPORT ---
EXAM DESCRIPTION: Brandee Pa And Lat (2 Views)11/05/2020 10:48 am CLINICAL HISTORY: Left pleural effusion COMPARISON: October 31, 2021 FINDINGS: Large left pleural effusion with basilar atelectasis The right lung appears clear. Heart is enlarged IMPRESSION: Large left pleural effusion
--- NOTE | 2020-11-05 11:58 | P.OP ---
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
[2020-11-05 12:28] VITALS: TEMP 96.6
--- NOTE | 2020-11-05 12:33 | RAD REPORT ---
[facility] DES[facility] 12[facility]24 pm CLINICAL HISTORY: Left pleural effusion COMPARISON: November 05, 2020 FINDINGS: What is presumed to be a catheter enters the left lower lateral hemithorax. The tube exten ds medially and inferiorly. A pneumothorax is not seen. Opacification of the mid and lower left hemithorax represents combination of pleural effusion and ate lectasis or mass
[2020-11-05] MEDS ORDERED: MORPHINE 4 MG/ML SYR ONE (12:41)
--- NOTE | 2020-11-05 13:08 | OP ---
Date of Procedure: 11/05/2020 Surgeon: Mega Zamorano MD, Preoperative Diagnosis: Chronic left recurrent malignant pleural effusion. Postoperative Diagnosis: Chronic left recurrent malignant pleural effusion. Procedure Performed: Placement of left thoracic PleurX catheter tunneled device. Anesthesia: Local 1% lidocaine used. Estimated Blood Loss: Less than 1 mL. Specimen: Pleural fluid sent for analysis. Findings: Straw-colored blood tinged pleural fluid sent for analysis. Complications: None. Drains: PleurX catheter in the left thoracic space. Disposition: Transferred to recovery room in good condition. Procedure In Detail: After informed consent was obtained, the patient was brought to the operating room, prepped and draped in the usual sterile fashion. After adequate anesthesia was achieved, anesthetized the area in the tract of approximately the 5th and 6th intercostal space using 1% lidocaine. I then made a small katty incision over the skin and using the finer needle and introducer sheath, I introduced the needle and sheath using aspiration technique into the thoracic cavity going over the rib without evidence of complication. Straw- colored blood-tinged fluid was appreciated immediately. I then placed the wire into the thoracic space at this time and removed all introducer sheath at this point. I then made a small counter incision anterior inferiorly to the insertion site and placed the tunneling device onto the catheter, passed the tunneling device through bringing the PleurX catheter out near the insertion site. I then using Seldinger technique, did sequential dilatation of the tract and placed an introducer sheath. The PleurX catheter was then placed into the thoracic cavity directing cranially and posteriorly without evidence of complication. The PleurX catheter was placed easily into the thoracic space. The introducer sheath was removed completely. The skin incisions were then copiously irrigated and closed with interrupted 2-0 silk sutures and a sterile dressing was placed over top. Straw-colored fluid was hooked up to the Pneumoevac evacuation system and approximately 700 cc came out easily at this point. The patient tolerated the procedure well without evidence of complication and transferred to PACU in good condition. All counts were correct at the end of the case. Stat chest x-ray will be performed. RISHI/KIERRA Voice ID: [id number] Report ID: [id number] HARRIS
[2020-11-05] MEDS ORDERED: HYDROCODONE/APAP 5/325 MG TAB ONE (13:18)
[2020-11-05 14:41] VITALS: BP 128/78; O2SAT 95
[2020-11-05 14:49] LABS: Appearance TURBID (CLEAR); Body Fluid Source PLEURAL; Body Fluid WBC 794 /mm^3; Color of fluid Pink (COLORLESS)
== END 2020-11-05 14:10 | disposition home or self-care (01) ==
LOC: OR 10:52
PROVIDERS: ATTEND Surgery
PROC: 0B9L30Z Drainage of Left Lung with Drainage Device, Percutaneous Approach (ICD-10-PCS; principal; 2020-11-05 12:00)
DX: J91.0 Malignant pleural effusion (principal); C34.92 Malignant neoplasm of unspecified part of left bronchus or lung; Z20.828 Contact with and (suspected) exposure to other viral communicable diseases; Z91.09 Other allergy status, other than to drugs and biological substances
CPT/HCPCS: 87070; 36415; 88108; 89050; 82947 ×2; 88305; 87015; 87206; 87116; 71045; 71046; 32550; U0002; J2704; J2405; J3010

== ENCOUNTER 2020-11-09 21:08 | Inpatient (IN) | payer OTHER, SELFPAY ==
--- OUTSIDE RECORDS SUMMARY | 2020-11-09 21:11 | XMS REPORT | Clinical Summary ---
:1940 Author Organization [facility] Address [address] [place] [address] Care Team Providers Name Role Phone Yanick [...] Added automatically from request for francis collado [id number] Encounters Date Type Specialty Care Team Description [...] Anesthesia Event Cardiothoracic Jaskaran Molina, Surgery 09/13/2020 [facility] General Internal Boyareddigari, Syncope a nd collapse (Primary Dx); - Encounter Medicine Alex Ryan MD Hyperglycemia; 09/19/2020 [facility] Hypertension , unspecified type; MD Que DIONICIO (acute kidney injury) (HCC); Adalid Mitchell Frequent PVCs; MD Que Lung mass 09/13/2020 Orders Only Cardiothoracic Provider, Stephanie Voss MD 09/13/2020 Travel 09/12/2020 Telephone General Surgery Serafin Schimdt MD 09/02/2020 Travel 09/02/2020 Orders Only Cardiothoracic Provider, Stephanie Voss MD 09/02/2020 Telephone Cardiothoracic Juan C, Stephanie Lentz MA 08/30/2020 [facility] Radiology Serafin Schmidt MD 08/30/2020 [facility] Radiology Serafin Schmidt MD 08/30/2020 [facility] Radiology Serafin Schmidt MD 08/30/2020 Office Visit Cardiothoracic Serafin Schmidt Lung mass (Pr imary Dx); Surgery MD Judith Pre-op testing 08/30/2020 Orders Only Cardiothoracic Provider, Stephanie Voss MD 08/30/2020 Travel 08/27/2020 Travel after 11/09/2019 Surgical History Surgery Date Site/Laterality Comments MASTECTOMY BRONCHOSCOPY, USING 09/16/2020 Chest/Left Procedure: F LEXIBLE ELECTROMAGNETIC NAVIGATION [facility] HOSCOPY, ELECTROMAGNETIC NAVIGATIONAL BRO NCHOSCOPY, BIOPSY OF LEFT U PPER LOBE MASS; Surgeon: Serafin Schmidt MD; Locat ion: [facility] OR; Serv ice: Thoracic; Later ality: Left; US, ENDOBRONCHIAL 09/16/2020 N/A Procedure: EBU S; Surgeon: Serafin Schmidt MD; Location: [facility] OR; Service: Thoraci c; Laterality: N/A; THORACENTESIS 09/16/2020 Chest/N/A Procedure: LEFT THORACENTESIS; Surgeon: Serafin Schmidt MD; Location: [facility] OR; Service: Thoraci c; Laterality: N/A; Medical [...] Comments Blood Pressure 144/60 09/19/2020 7:23 AM [facility] Pulse 53 09/19/2020 7:23 AM [facility] Temperature 36.8 C (98.3 F) 09/19/2020 7:23 AM [facility] Respiratory Rate 18 09/19/2020 7:23 AM [facility] Oxygen Saturation 95% 09/19/2020 7:23 AM [facility] Inhaled Oxygen Concentration - - Weight 67.1 kg (148 lb) 09/13/2020 8:05 AM [facility] Height 157.5 cm (5' 2") 09/13/2020 8:05 AM [facility] Body Mass Index 27.07 09/13/2020 8:05 AM [facility] Plan of Treatment Health Maintenance Due Date Last Done Comments DIABETES: RETINAL EYE EXAM 01/04/1950 DIABETIC FOOT EXAM 01/04/1950 COVID-19 VACCINE (#1) 1956 SHINGLES VACCINES (#1) 01/04/1990 65+ PNEUMOCOCCAL VACCINE (1 of 1 - PPSV23) 01/04/2005 INFLUENZA VACCINE 06/01/2020 09/01/2019 Procedures Procedure Name Priority Date/Time Associated Comments Diagnosis POC GLUCOSE Routine 09/19/2020 8:45 Results for this AM [facility] procedure are i n the results section. ESTIMATED GFR Routine 09/19/2020 5:30 Results fo r this AM [facility] procedure are i n the results section. CBC HEMOGRAM Routine 09/19/2020 5:30 Results for this AM [facility] procedure are i n the results section. BASIC METABOLIC PANEL Routine 09/19/2020 5:30 Re sults for this AM [facility] procedure are i n the results section. POC GLUCOSE Routine 09/18/2020 9:02 Results for this PM [facility] procedure are i n the results section. POC GLUCOSE Routine 09/18/2020 5:31 Results for this PM [facility] procedure are i n the results section. POC GLUCOSE Routine 09/18/2020 1:09 Results for this PM [facility] procedure are i n the results section. XR CHEST 1 VW PORTABLE STAT 09/18/2020 9:37 R esults for this AM [facility] procedure are i n the results section. POC GLUCOSE Routine 09/18/2020 8:31 Results for this AM [facility] procedure are i n the results section. POC GLUCOSE Routine 09/18/2020 5:31 Results for this AM [facility] procedure are i n the results section. ESTIMATED GFR Routine 09/18/2020 3:00 Results fo r this AM [facility] procedure are i n the results section. CBC HEMOGRAM Routine 09/18/2020 3:00 Results for this AM [facility] procedure are i n the results section. BASIC METABOLIC PANEL Routine 09/18/2020 3:00 Re sults for this AM [facility] procedure are i n the results section. POC GLUCOSE Routine 09/17/2020 11:54 Results for this PM [facility] procedure are i n the results section. POC GLUCOSE Routine 09/17/2020 4:46 Results for this PM [facility] procedure are i n the results section. POC GLUCOSE Routine 09/17/2020 1:04 Results for this PM [facility] procedure are i n the results section. POC GLUCOSE Routine 09/17/2020 8:19 Results for this AM [facility] procedure are i n the results section. ESTIMATED GFR Routine 09/17/2020 4:10 Results fo r this AM [facility] procedure are i n the results section. PHOSPHORUS LEVEL Routine 09/17/2020 4:10 Results for this AM [facility] procedure are i n the results section. MAGNESIUM LEVEL Routine 09/17/2020 4:10 Results for this AM [facility] procedure are i n the results section. BASIC METABOLIC PANEL Routine 09/17/2020 4:10 Re sults for this AM [facility] procedure are i n the results section. HC COMPLETE BLD COUNT Routine 09/17/2020 4:10 Re sults for this W/AUTO DIFF AM [facility] procedure are i n the results section. POC GLUCOSE Routine 09/16/2020 10:05 Results for this PM [facility] procedure are i n the results section. XR CHEST 1 VW PORTABLE STAT 09/16/2020 8:58 R esults for this PM [facility] procedure are i n the results section. POC GLUCOSE Routine 09/16/2020 5:59 Results for this PM [facility] procedure are i n the results section. XR CHEST 1 VW PORTABLE STAT 09/16/2020 4:27 R esults for this PM [facility] procedure are i n the results section. SURGICAL PATHOLOGY Routine 09/16/2020 4:11 Resul ts for this REQUEST PM [facility] procedure are i n the results section. SURGICAL PATHOLOGY Routine 09/16/2020 4:11 Resul ts for this REQUEST PM [facility] procedure are i n the results section. BAL CELL COUNT AND Routine 09/16/2020 2:46 Resul ts for this DIFFERENTIAL PM [facility] procedure are i n the results section. CYTOLOGY Routine 09/16/2020 1:20 Results for this (NON-GYNECOLOGICAL) PM [facility] procedur e are in REQUEST the results section. CYTOLOGY Routine 09/16/2020 1:20 Results for this (NON-GYNECOLOGICAL) PM [facility] procedur e are in REQUEST the results section. CYTOLOGY Routine 09/16/2020 1:20 Results for this (NON-GYNECOLOGICAL) PM [facility] procedur e are in REQUEST the results section. CYTOLOGY Routine 09/16/2020 1:20 Results for this (NON-GYNECOLOGICAL) PM [facility] procedur e are in REQUEST the results section. NJ AN ELECTIVE Routine 09/16/2020 1:03 Results f or this ENDOTRACHEAL AIRWAY PM [facility] procedur e are in the results section. CYTOLOGY Routine 09/16/2020 10:45 Results for this (NON-GYNECOLOGICAL) AM [facility] procedur e are in REQUEST the results section. CYTOLOGY Routine 09/16/2020 10:45 Results for this (NON-GYNECOLOGICAL) AM [facility] procedur e are in REQUEST the results section. CYTOLOGY Routine 09/16/2020 10:44 Results for this (NON-GYNECOLOGICAL) AM [facility] procedur e are in REQUEST the results section. CYTOLOGY Routine 09/16/2020 10:44 Results for this (NON-GYNECOLOGICAL) AM [facility] procedur e are in REQUEST the results section. TTE COMPLETE, W Routine 09/16/2020 10:00 Results for this CONTRAST, W DOPPLER AM [facility] procedur e are in ([id number]) the results section. POC GLUCOSE Routine 09/16/2020 9:16 Results for this AM [facility] procedure are i n the results section. CT CHEST WO CONTRAST STAT 09/16/2020 8:50 Res ults for this AM [facility] procedure are i n the results section. CYTOLOGY Routine 09/16/2020 6:12 Results for this (NON-GYNECOLOGICAL) AM [facility] procedur e are in REQUEST the results section. CYTOLOGY Routine 09/16/2020 6:12 Results for this (NON-GYNECOLOGICAL) AM [facility] procedur e are in REQUEST the results section. CYTOLOGY Routine 09/16/2020 6:12 Results for this (NON-GYNECOLOGICAL) AM [facility] procedur e are in REQUEST the results section. POC GLUCOSE Routine 09/16/2020 4:25 Results for this AM [facility] procedure are i n the results section. ABO AND RH CONFIRMATION Routine 09/16/2020 4:25 Results for this AM [facility] procedure are i n the results section. B NATRIURETIC PEPTIDE Routine 09/16/2020 4:25 Re sults for this AM [facility] procedure are i n the results section. HC COMPLETE BLD COUNT Routine 09/16/2020 4:25 Re sults for this W/AUTO DIFF AM [facility] procedure are i n the results section. ESTIMATED GFR Routine 09/16/2020 4:00 Results fo r this AM [facility] procedure are i n the results section. PHOSPHORUS LEVEL Routine 09/16/2020 4:00 Results for this AM [facility] procedure are i n the results section. MAGNESIUM LEVEL Routine 09/16/2020 4:00 Results for this AM [facility] procedure are i n the results section. BASIC METABOLIC PANEL Routine 09/16/2020 4:00 Re sults for this AM [facility] procedure are i n the results section. ANTIBODY IDENTIFICATION Routine 09/16/2020 1:35 Results for this AM [facility] procedure are i n the results section. TYPE AND SCREEN Routine 09/16/2020 1:35 Results for this AM [facility] procedure are i n the results section. POC GLUCOSE Routine 09/16/2020 1:06 Results for this AM [facility] procedure are i n the results section. URINE CULTURE Routine 09/15/2020 9:52 Results fo r this PM [facility] procedure are i n the results section. POC GLUCOSE Routine 09/15/2020 8:59 Results for this PM [facility] procedure are i n the results section. URINALYSIS SCREEN AND Routine 09/15/2020 6:55 Re sults for this MICROSCOPY, WITH REFLEX PM [facility] proc edure are in TO CULTURE the results section. POC GLUCOSE Routine 09/15/2020 5:11 Results for this PM [facility] procedure are i n the results section. POC GLUCOSE Routine 09/15/2020 11:52 Results for this AM [facility] procedure are i n the results section. POC GLUCOSE Routine 09/15/2020 8:08 Results for this AM [facility] procedure are i n the results section. ESTIMATED GFR Routine 09/15/2020 4:50 Results fo r this AM [facility] procedure are i n the results section. PHOSPHORUS LEVEL Routine 09/15/2020 4:50 Results for this AM [facility] procedure are i n the results section. MAGNESIUM LEVEL Routine 09/15/2020 4:50 Results for this AM [facility] procedure are i n the results section. BASIC METABOLIC PANEL Routine 09/15/2020 4:50 Re sults for this AM [facility] procedure are i n the results section. HC COMPLETE BLD COUNT Routine 09/15/2020 4:50 Re sults for this W/AUTO DIFF AM [facility] procedure are i n the results section. POC GLUCOSE Routine 09/14/2020 9:19 Results for this PM [facility] procedure are i n the results section. POC GLUCOSE Routine 09/14/2020 5:11 Results for this PM [facility] procedure are i n the results section. POC GLUCOSE Routine 09/14/2020 1:39 Results for this PM [facility] procedure are i n the results section. HC COMPLETE BLD COUNT STAT 09/14/2020 8:44 Re sults for this W/AUTO DIFF AM [facility] procedure are i n the results section. POC GLUCOSE Routine 09/14/2020 7:08 Results for this AM [facility] procedure are i n the results section. ESTIMATED GFR STAT 09/14/2020 7:08 Results fo r this AM [facility] procedure are i n the results section. BASIC METABOLIC PANEL STAT 09/14/2020 7:08 Re sults for this AM [facility] procedure are i n the results section. HC COMPLETE BLD COUNT Routine 09/14/2020 5:30 Re sults for this W/AUTO DIFF AM [facility] procedure are i n the results section. HEMOGLOBIN A1C Routine 09/14/2020 5:30 Results f or this AM [facility] procedure are i n the results section. BLOOD CULTURE, AEROBIC Routine 09/13/2020 8:40 R esults for this & ANAEROBIC PM [facility] procedure are i n the results section. BLOOD CULTURE, AEROBIC Routine 09/13/2020 8:40 R esults for this & ANAEROBIC PM [facility] procedure are i n the results section. POC GLUCOSE Routine 09/13/2020 7:28 Results for this PM [facility] procedure are i n the results section. TROPONIN Timed 09/13/2020 5:00 Results for this PM [facility] procedure are i n the results section. COVID-19 QUALITATIVE STAT 09/13/2020 3:07 Res ults for this PCR PM [facility] procedure are i n the results section. NM LUNG PERFUSION STAT 09/13/2020 1:26 Result s for this IMAGING PM [facility] procedure are i n the results section. CT CHEST WO CONTRAST Routine 09/13/2020 12:50 Res ults for this PM [facility] procedure are i n the results section. TROPONIN Timed 09/13/2020 11:56 Results for this AM [facility] procedure are i n the results section. US DUPLEX VENOUS LOWER STAT 09/13/2020 11:00 R esults for this EXTREMITY RIGHT AM [facility] procedure ar e in the results section. ECG 12-LEAD STAT 09/13/2020 9:59 Results for this AM [facility] procedure are i n the results section. MAGNESIUM LEVEL STAT 09/13/2020 8:18 Results for this AM [facility] procedure are i n the results section. ESTIMATED GFR STAT 09/13/2020 8:18 Results fo r this AM [facility] procedure are i n the results section. TROPONIN STAT 09/13/2020 8:18 Results for this AM [facility] procedure are i n the results section. BASIC METABOLIC PANEL STAT 09/13/2020 8:18 Re sults for this AM [facility] procedure are i n the results section. PARTIAL THROMBOPLASTIN STAT 09/13/2020 8:18 R esults for this TIME (PTT) AM [facility] procedure are i n the results section. PROTHROMBIN TIME WITH STAT 09/13/2020 8:18 Re sults for this INR AM [facility] procedure are i n the results section. HC COMPLETE BLD COUNT STAT 09/13/2020 8:18 Re sults for this W/AUTO DIFF AM [facility] procedure are i n the results section. ECG 12-LEAD Routine 09/13/2020 8:14 Results for this AM [facility] procedure are i n the results section. ECG ED PRELIMINARY Routine 09/13/2020 8:13 Resul ts for this INTERPRETATION AM [facility] procedure are in the results section. ECG ED PRELIMINARY Routine 09/13/2020 8:13 Resul ts for this INTERPRETATION AM [facility] procedure are in the results section. [id number] Routine 09/12/2020 MRI BRAIN W WO CONTRAST [...] BASE TO Routine 08/16/2020 MID THIGH after 11/09/2019 Results POC glucose (09/19/2020 8:45 AM [facility]LE [facility]ER)Only the most recent of24 resultswithin the time period is included. POC glucose 174 (H) 65 - 99 mg/dL [facility] Comment: HOSPITAL Supervisor Nuclear Medicine Name: Germaine Vasquez Device ID: [id number] Chartable: [facility] Notified RN Specimen Blood Performing Organization Address City/[facility] Phon e Number [facility] DEPARTMENT OF PATHOLOGY AND [address] [place] [address] [address] Estimated GFR (09/19/2020 5:30 AM [facility]LE [facility]ER)Only the most recent of7 resultswithin the time period is included. [facility] Estimated GFR 39 (A) mL/min/1.73 [facility] Comment: HOSPITAL Catergory Units Interpretation [...] in 2014. Specimen Plasma Performing Organization Address City/[facility] Phon e Number [facility] DEPARTMENT OF PATHOLOGY AND [address] [place], [place] [phone] [address] [address] CBC hemogram (09/19/2020 5:30 AM BOTTLE [facility]ER)Only the most recent of2 resultswithin the time period is included. Pathologist Sig nature WBC 6.70 4.50 - 11.00 k/uL [facility] RBC 4.61 4.20 - 5.50 m/uL [facility] HGB 12.0 12.0 - 16.0 g/dL [facility] HCT 36.7 (L) 37.0 - 47.0 % [facility] MCV 79.6 (L) 82.0 - 100.0 fL [facility] MCH 26.0 (L) 27.0 - 34.0 pg [facility] MCHC 32.7 31.0 - 37.0 g/dL [facility] RDW - SD 37.4 37.0 - 55.0 fL [facility] MPV 11.4 8.8 - 13.2 fL [facility] Platelet count 207 150 - 400 k/uL [facility] Nucleated RBC 0.00 /100 WBC [facility] Specimen Plasma Performing Organization Address City/[facility] Phon e Number [facility] DEPARTMENT OF PATHOLOGY AND [address] [place] [address] [phone] [address] Basic metabolic panel (09/19/2020 5:30 AM BOTTLE [facility]ER)Only the most recent of7 results within the time period is included. Pathologist Sig nature Sodium 140 135 - 148 mEq/L [facility] Potassium 4.0 3.5 - 5.0 mEq/L [facility] Chloride 104 98 - 112 mEq/L [facility] CO2 24 24 - 31 mEq/L [facility] Anion gap 12@ANIO 7 - 15 mEq/L [facility] BUN 12 8 - 23 mg/dL [facility] Creatinine 1.29 (H) 0.50 - 0.90 mg/dL [facility] Glucose 148 (H) 65 - 99 mg/dL [facility] Calcium 8.7 (L) 8.8 - 10.2 mg/dL [facility] Specimen Plasma Performing Organization Address City/[facility] Phon e Number [facility] DEPARTMENT OF PATHOLOGY AND [address] [place] [address] [phone] [address] XR Chest 1 Vw Portable (09/18/2020 9:37 AM BOTTLE [facility]ER)Only the most recent of3 results within the [...] Radiology Results Incoming - 09/18/2020 9:45 AM [facility]LE [facility]ER EXAMINATION: XR CHEST 1 VW PORTABLE HISTORY: [...] Organization Address City/State/ZIP Code Phon e Number [facility] [address] [place] [address] CBC with platelet and differential (09/17/2020 4:10 AM BOTTLE [facility]ER)Only the most recent of6 resultswithin the time period is included. WBC 8.54 4.50 - 11.00 [facility] RBC 4.85 4.20 - 5.50 [facility] HGB 12.4 12.0 - 16.0 [facility]/dL [facility] HCT 39.2 37.0 - 47.0 % [facility] MCV 80.8 (L) 82.0 - 100.0 [facility] MCH 25.6 (L) 27.0 - 34.0 pg [facility] MCHC 31.6 31.0 - 37.0 [facility] g/dL [facility] RDW - SD 38.2 37.0 - 55.0 fL [facility] MPV 11.8 8.8 - 13.2 fL [facility] Platelet count 195 150 - 400 k/uL [facility] Nucleated RBC 0.00 /100 WBC [facility] Neutrophils 55.1 39.0 - 69.0 % [facility] Lymphocytes 29.2 25.0 - 45.0 % [facility] Monocytes 9.6 0.0 - 10.0 % [facility] Eosinophils 4.6 0.0 - 5.0 % [facility] Basophils 1.1 (H) 0.0 - 1.0 % [facility] Immature granulocytes 0.4Comment: 0.0 - 1.0 % [facility] "Immature HOSPITAL granulocytes" (promyelocytes , myelocytes, metamyelocytes ) Specimen Plasma Performing Organization Address [facility] Phon e Number [facility] DEPARTMENT OF PATHOLOGY AND [address] [place] [phone] Phosphorus level (09/17/2020 4:10 AM BOTTLE [facility]ER)Only the most recent of3 resultswithin the time period is included. Pathologist Sig nature Phosphorus 2.4 2.4 - 4.5 mg/dL [facility] Specimen Plasma Performing Organization Address [facility] Phon e Number [facility] DEPARTMENT OF PATHOLOGY AND [address] [place] [phone] Magnesium level (09/17/2020 4:10 AM BOTTLE [facility]ER)Only the most recent of4 resultswithin the time period is included. Pathologist Sig nature Magnesium 1.7 1.6 - 2.4 mg/dL [facility] L Specimen Plasma Performing Organization Address [facility] Phon e Number [facility] DEPARTMENT OF PATHOLOGY AND [address] [place] [address] [place] [phone] Surgical pathology request (09/16/2020 4:11 PM BOTTLE [facility]ER)Only the most recent of2 resultswithin the time period is included. [facility] DEPARTMENT OF PATHOLOGY AND GENOMIC MEDICINE Surgical pathology See link below for [facility] DEPARTMENT O F report PDF Lab Report PATHOLOGY AND GENOMIC MEDICINE Result status This is Supplemental [facility] DEPARTMENT OF Report for PATHOLOGY AND [id number] GENOMIC MEDICINE Specimen Narrative Performed At NEOGENOMICS [facility] DEPARTMENT OF PATHOLOGY AND GENOMIC LUNG NGS MEDICINE [id number] DOS 09/16/2020 Block B1 Performing Organization Address City/[facility] Phon e Number [facility] DEPARTMENT OF PATHOLOGY AND [address] [place] [phone] GENOMIC MEDICINE BAL cell count and differential (09/16/2020 2:46 PM BOTTLE CASER) BAL specimen source MAX BAL [facility] BAL cell count 0.040 m/mL [facility] Comment: HOSPITAL Normal ranges: Nonsmokers: 0.007 - 0.363 Smokers: 0 - 1.31 73% viability, many rbc's present BAL PAMS 3 % [facility] Comment: [facility] Normal ranges: Nonsmokers: 65 - 100 Smokers: 81 - 100 BAL PMNS 83 % [facility] Comment: [facility] Normal ranges: Nonsmokers: 0 - 3 Smokers: 0 - 2 BAL eosinophils 10 % [facility] Comment: HOSPITAL Normal ranges: Nonsmokers: 0 - 1 Smokers: 0 - 1 BAL lymphs 4 % [facility] Comment: HOSPITAL Normal ranges: Nonsmokers: 0 - 10 Smokers: 0 - 5 Specimen Fluid Narrative Performed At [facility] DEPART[facility] OF PATHOLOGY AND GENOMIC MEDICINE Performing Organization Address City/[facility] Phon e Number [facility] DEPARTMENT OF PATHOLOGY AND [address] [place] [address] 0 [facility] [address] [address] Cytology (non-gynecological) request (09/16/2020 1:20 PM BOTTLE CASER)Only the most recent of11 resultswithin the time period is included. [facility] DEPARTMENT OF PATHOLOGY AND GENOMIC MEDICINE Cytology See link below [facility] DEPARTMENT OF (non-gynecological) for PDF Lab PATHOLOGY AND report Report GENOMIC MEDICINE Result status This is Final [facility] DEPARTMENT OF Report for PATHOLOGY AND [id number] GENOMIC MEDICINE Specimen Performing Organization Address City/[facility] Phon e Number [facility] DEPARTMENT OF PATHOLOGY AND [address] [place], [place] [phone] 0 GENOMIC MEDICINE Airway (09/16/2020 1:03 PM BOTTLE CASER) Narrative Performed At Jaskaran Molina MD 09/16/2020 [...] and 3D if needed) (09/16/2020 10:00 AM BOTTLE CASER) Specimen Narrative Performed At [facility] Echo cardiography Report [address] [place] [address] Pat.Name: DAHIANA WEATHERS [facility].ID: [id number] .Date: 09/16/2020 Refer.MD: ANALI BURGOS MD Exam Time: 9:19:00 AM Study Type:R outine Echo Height: 62in Weight: 148lb BSA: 1.68 m2 Ag e: 1940,80Y Sex: FEMALE BP: 120/56 HR: 73 bpm Sonogr phr: ODILON Friend, RDCS Pat. Stat.:Inpatient Room: [place] [address] Study Status:Final Echo Event ID:[id number] Order ID: [id number] Reason for Study:Syncope Procedures: 2D Echo, Colorflow [...] of 5 mmHg. MEASUREMENTS: 2D Parasternal Long [place] Ao An 1.9 cm LVPWd 1 cm [...] Radiology Results In - 2019 1:09 PM [facility] Echocardiography Report [address] [place] [address] Pat.Name: DAHIANA WEATHERS Pat.I D: [id number] .Date: 09/16/2020 Refer .MD: ANALI BURGOS MD Exam Time: 9:19:00 AM Study Type:Routine Echo Height: 62in Weigh t: 148lb BSA: 1.68 m2 Age: 3 1940,80Y Sex: FEMALE BP: 120/56 HR: 73 bpm Sonog rphr: Aylin Rodriguez, ODILON, RDCS Pat. Stat.:Inpatient Room: [place] [address] Study Status:Final Echo Event ID:[id number] Order ID: [id number] Reason for Study:Syncope Procedures: 2D Echo, Colorflow [...] of 5 mmHg. MEASUREMENTS: 2D Parasternal Long [place] Ao An 1.9 cm LVPW d 1 [...] City/State/ZIP Code Phon e Number [facility] [address] [place] [address] CT Chest Wo Contrast (09/16/2020 8:50 AM BOTTLE CASER)Only the most recent of2 results within the time period is included. Specimen Narrative Performed At [facility]AMIN[facility]ST WO [facility]AST CLINICAL HISTORY: Veran [...] Radiology Results Incoming - 09/16/2020 9:37 AM BOTTLE CASER EXAMINATION: CT CHEST WO CONTRAST CLINICAL HISTORY: [...] City/State/ZIP Code Phon e Number [facility] [address] [place] [address] ABO and Rh confirmation (09/16/2020 4:25 AM BOTTLE CASER) Pathologist Sig nature ABO grouping A [facility] Rh type NEG [facility] Specimen Plasma Performing Organization Address [facility] Phon e Number [facility] DEPARTMENT OF PATHOLOGY AND [address] [place] [address] [phone] [address] B natriuretic peptide (09/16/2020 4:25 AM BOTTLE CASER) Pathologist Sig nature BNP 56 0 - 100 pg/mL [facility] Specimen Blood Performing Organization Address City/[facility] Phon e Number [facility] DEPARTMENT OF PATHOLOGY AND [address] [place] [address] [phone] [address] Antibody identification (09/16/2020 1:35 AM BOTTLE CASER) Pathologist Sig nature Antibody ID POS, Anti-D [facility] Specimen Performing Organization Address [facility] Phon e Number [facility] DEPARTMENT OF PATHOLOGY AND [address] [place] [address] [phone] [address] Type and screen (09/16/2020 1:35 AM BOTTLE CASER) Pathologist Sig nature ABO grouping A [facility] Rh type NEG [facility] Antibody screen (gel) POS [facility] Specimen Plasma Performing Organization Address [facility] Phon e Number [facility] DEPARTMENT OF PATHOLOGY AND [address] [place] [address] [phone] [address] Urine culture (09/15/2020 9:52 PM BOTTLE CASER) Urine culture Mixed danny <=10-3 col/cc [facility] IST isolate Comment: HOSPITAL Specimen Information Specimen Source: Urine Specimen Site: Catheterized Specimen Urine - Catheterized Performing Organization Address City/[facility]/ZIP [facility] Phon e Number [facility] DEPARTMENT OF PATHOLOGY AND [address] [place] [address] [phone] [address] Urinalysis screen and microscopy, with reflex to culture (09/15/2020 6:55 PM BOTTLE CASER) Specimen site Catheterized [facility] Color, UA Yellow [facility] Appearance, UA Clear [facility] Specific gravity, UA 1.017 1.001 - 1.035 [facility] pH, UA 5.0 5.0 - 8.5 [facility] Protein, UA Negative Negative [facility] Glucose, UA Negative Negative [facility] Ketones, UA Negative Negative [facility] Bilirubin, UA Negative Negative [facility] Blood, UA Negative Negative [facility] Nitrite, UA Negative Negative [facility] Urobilinogen, UA <2.0 <2.0 [facility] Leukocyte esterase, Small (A) Negative [facility] Epithelial cells, UA 2 /HPF [facility] WBC, UA 32 (H) 0 - 4 /HPF [facility] RBC, UA 3 0 - 5 /HPF [facility] Bacteria, UA Few None seen [facility] Yeast, UA None seen [facility] Yeast with None seen [facility] pseudohyphae, [facility] Hyaline casts, UA 20 /LPF [facility] Specimen Urine Performing Organization Address City/[facility] Phon e Number [facility] DEPARTMENT OF PATHOLOGY AND [address] [place] [address] Hemoglobin A1c (09/14/2020 5:30 AM BOTTLE CASER) Hemoglobin A1C 9.1 (H) 4.0 - 5.6 % [facility] Comment: HOSPITAL HbA1c cutoffs for [...] 1 diabetes. Specimen Blood Performing Organization Address City/[facility] Phon e Number [facility] DEPARTMENT OF PATHOLOGY AND [address] [place] [address] [address] Blood culture, aerobic & anaerobic (09/13/2020 8:40 PM BOTTLE CASER)Only the most recent of2 resultswithin the time period is included. Blood culture No growth after 5 days of incubation. JULIAN ALARCON isolate Comment: HOSPITAL Specimen Information Specimen Source: Blood Specimen Site: Left Forearm Specimen Blood Performing Organization Address City/State/[facility] Phon e Number [facility] DEPARTMENT OF PATHOLOGY AND [address] [place] [address] [phone] [address] Troponin (09/13/2020 5:00 PM BOTTLE CASER)Only the most recent of3 resultswithin the time [...] 0.020 ng/mL Specimen Plasma Performing Organization Address City/State/[facility] Code Phon e Number [facility] DEPARTMENT OF PATHOLOGY AND [address] [place], [place] [phone] [address] COVID-19 qualitative PCR (09/13/2020 3:07 PM BOTTLE CASER) Interpretation Negative results do not prec lude 2019-nCoV infection and should not be used as the sole basis for treatment or other patient management decisions. Negative results must be combined with clinical observations, patient history, and epidemiological RAMIREZ information. [facility] COVID-19 qualitative Not-Detected Not-Detecte [facility] PCR result d [facility] COVID-19 qualitative See link below for [facility] PCR PDF Lab [facility] ReportComment: Case HOSPITAL Number: [id number] Specimen Nasopharyngeal swab Performing Organization Address City/State/ZIP Code Phon e Number [facility] DEPARTMENT OF PATHOLOGY AND [address] [place], [place] [phone] GENOMIC MEDICINE [facility] [address] [place] [address] [facility] Lung Perfusion Imaging (09/13/2020 1:26 PM BOTTLE CASER) Specimen Narrative Performed At PROCEDURE: NM LUNG [...] to the CT study report for details. [facility]-[id number] Procedure Note Interface, Radiology Results Incoming - 09/13/2020 1:56 PM BOTTLE CASER PROCEDURE: NM LUNG PERFUSION IMAGING INDICATION: PE [...] to the CT study report for details. [facility]-[id number] Performing Organization Address City/State/ZIP Code Phon e Number [facility] [address] [facility] [place] [phone] Us duplex venous lower extremity (09/13/2020 11:00 AM BOTTLE CASER) Specimen Narrative Performed At [facility] U ltrasound Laboratory Lower Extr emity Venous Report [address] [facility] [address], [place] [address] Pat.Name: DAHIANA WETAHERS Pat.ID: [id number] .Date: 09/13/2020 Refer.MD: CAS PATE MD, RAHEEM PEREZ, ALEX Genao MD Exam Time: 10:32:00 AM Study Type:LE Venous Height: 62in Weight: 148lb BSA: 1.68 m2 Ag e: 1940,80Y Sex: FEMALE Sonogrphr: Freddie Wright, RVS, Tong Gutierrez RDMS, RVT Pat. Stat.:Inpatient Room: ED19 Tape Vol: CM, CPT - 4: 8[address] Echo Event ID:[id number] Order ID: [id number] Reason for Study:Leg swelling or pain, D [...] Radiology Results In - 2019 3:09 PM [facility] Vascular Ultrasound Laboratory Lower Extremity Veno us Report [address] [place] [address] Pat.Name: DAHIANA WEATHERS Pat.I D: [id number] .Date: 09/13/2020 Refer.MD: CAS PATE MD, FARHAT Jurado, ALEX Genao MD Exam Time: 10:32:00 AM Study Type:LE Venous Height: 62in Weigh t: 148lb BSA: 1.68 m2 Age: 3 1940,80Y Sex: FEMALE Sonogrphr: TITO Koroma, Tong Gutierrez RDMS, RVT Pat. Stat.:Inpatient Room: ED19 Tape Vol: CM, CPT - 4: 30220 Echo Event ID:[id number] Order ID: [id number] Reason for Study:Leg swelling or pain, D [...] visualized veins. Results given to Dr. Parsons 4184 PHYSICIAN INTERPRETATION: Venous examination of the right lower ex tremity and left groin demonstrated no evidence of venous throm bosis in the visualized veins. Normal compressibility and augmentation of all veins visualized. FINDINGS: Signed 09/13/2020 03:09 PM Santiago Samson MD, [facility] Performing Organization Address City/[facility] e Number [facility] [address] [place] [address] ECG 12 lead (09/13/2020 9:59 AM BOTTLE CASER)Only the most recent of2 resultswithin the time period is included. Pathologist Sig nature Ventricular rate 93 [facility]USE Atrial rate 93 [facility] [place] interval 128 [facility] M[facility] QRSD interval 74 [...] is no t available. Performing Organization Address City/State/[facility] Code Phon e Number [facility] MUSE [address] [place] [address] Partial thromboplastin time, activated (09/13/2020 8:18 AM BOTTLE CASER) PTT 24.1 23.0 - 36.0 [facility] Comment: [facility] PTT therapeutic range for unfractionated heparin is 61.0-112.0 seconds which corresponds to Anti-Xa 0.3-0.7 U/ml. Specimen Blood Performing Organization Address City/[facility]/ZIP [facility] Phon e Number [facility] DEPARTMENT OF PATHOLOGY AND [address] [place] [address] [phone] [address] Prothrombin time with INR (09/13/2020 8:18 AM BOTTLE CASER) Pathologist [facility] Prothrombin time 14.5 11.5 - 14.5 [facility] INR 1.1 [facility] Comment: AGNES The International Normalized Ratio (INR) is a [facility] HOSPITAL monitoring tool for patients who are stable on oral anticoagulant therapy. An INR of 2.0-3.0 is suggested for deep vein thrombosis/pulmonary embolism. Specimen Blood Performing Organization Address City/[facility] Phon e Number [facility] DEPARTMENT OF PATHOLOGY AND [address] [place] [address] [place] [address] ECG ED Preliminary Interpretation - Not an Order (09/13/2020 8:13 AM BOTTLE CASER)Only the most recent of2 resultswithin the time period is included. Narrative Performed At Alex Leo MD 6:44 AM ECG ED Preliminary Interpretation - Not an Order Performed by: Alex Leo MD Authorized by: Alex Leo MD ECG reviewed by ED Physician in the abse nce of a procurement coordinator: yes Interpretation: Interpretation: abnormal Rate: ECG [...] not been HM [facility] interpreted by a [facility] Provider. T he exam was imported into our imaging system. Performing Organization Address City/[facility]/ZIP Code Phon e Number HM [facility] [address] [place] [address] PET/CT Skull Base To Mid Thigh (08/29/2020)Only the most recent of2 results within the time period is included. Narrative Performed At This result has an attachment that is no t available. NM Bone Scan External Study (08/16/2020 10:39 AM CDT) Specimen Narrative Performed At This exam was not acquired at a [facility] t facility and has not been [facility] interpreted by a [facility] Provider. T he exam was imported into our imaging system. Performing Organization Address City/[facility] Code Phon e Number [facility] [address] [place] [address] CT Chest External Study (08/16/2020 8:43 AM CDT) Specimen Narrative Performed At This exam was not acquired at a [facility] t facility and has not been [facility] interpreted by a [facility] Provider. T he exam was imported into our imaging system. Performing Organization Address [facility] Phon e Number HM [facility] [address] [place] [address] CT Chest Wo Contrast Abdomen Wo Contrast Pelvis Wo Contrast (08/16/2020) Narrative Performed At This result has an attachment that is no t available. after 11/09/2019
--- OUTSIDE RECORDS SUMMARY | 2020-11-09 21:13 | XMS REPORT | Continuity of Care Document ---
:1940 Author Organization [facility] t Address [address] [place] [address] Care Team Providers Name Role Phone Yanick [...] Expiration Date Sour ce Number UHC MEDICAREUHC [id number] 2020 [place] MEDICARE 00:00:00 Pentecostal HMO/[id number] -Present [place] Problems Condition Condition Condition Status Onset Resolution Last Treating Co mments Source Name Details Category Date Date Treatment Clinician Date Syncope Syncope Disease Active 2019-11 [place] and and 11-13 [facility] collapse collapse 00:00: st 00 Syncope Syncope Disease Active 2019-11 [place] 11-13 [facility] 00:00: st 00 Lung mass Lung mass Disease Active 2019-11 Overview: [place] 0 Added [facility] 00:00: automatic st 00 ally from request for surgery [id number] Allergies, Adverse Reactions, Alerts Allergy Allergy Status Severity Reaction(s) Onset Inactive Treating Comm ents Source Name Type Date Date Clinician Iodine Propensi Active Rash 2019-11 [place] And ty to 11-13 [facility] Iodide adverse 00:00: st Containi reaction 00 ng s to Products drug Iodine Propensi Active Hives [place] ty to 05-18 [facility] adverse 00:00: st reaction 00 s to drug Social History Social Habit Start Date Stop Date Quantity Comments Source History [facility] Meth odist Alcohol Std Drinks History [facility] Meth odist Alcohol Binge Sex Assigned At [facility] ethodist Tobacco use and 2020-09-18 2020-09-18 Never used [facility] ethodist exposure 00:00:00 00:00:00 Alcohol intake 2020-09-18 2020-09-18 Lifetime [facility] thodist 00:00:00 00:00:00 non-drinker (finding) History SDOH 2020-08-30 2020-08-30 1 [place] Meth odist Alcohol Frequency 00:00:00 00:00:00 Smoking Status Start Date Stop Date Source Never smoker [place] Methodis t Medications Ordered Filled Start Stop Current Ordering Indication Dosage Frequency Signature Comments Components Source Medication Medication Date Date Medication? Clinician (SIG) Name Name hyoscyamine 2019-11 2020- No 1{tbl} Q.[id number] Take 1 [place] sulfate 11-19 [id number] tablet by [facility] 0.125 mg 10:27: 00:00 [...] mL) insulin pen dicyclomine 2019-11 Yes 20mg Q.59602428 Take 20 mg Bejarano (BENTYL) 20 - [id number] by mouth 3 [facility] mg tablet 10:27: 3D (three) st 06 times a day as needed (abdominal pain). losartan 2019-11 Yes 50mg Q.5D Take 50 mg Franyn ston (COZAAR) 50 - by mouth 2 [...] st tablet 00 clonIDINE 2020- No .1mg Q.11380117 Take 0.1 Bejarano (CATAPRES) 07-26 11-19 [id number] mg by M ethodi 0.1 MG 00:00: 00:[address] tablet 00 :00 (three) times a day. methscopola 2019- No 5mg QD Take 5 mg Bejarano mine 30 09-19 by mouth [facility] (PAMINE 00:00: 00:[address] FORTE) 5 MG 00 :00 tablet insulin 2019- Yes 8U Q.83539604 Inject 8 Bejarano ASPART 5-26 [id number] Units Method i (NovoLOG) 00:00: 3D under [...] blood 2020-09-19 07:23:34 144 mm[Hg] Gera n Pentecostal pressure Diastolic blood 2020-09-19 07:23:34 60 mm[Hg] Farnaz on Pentecostal pressure Heart rate 2020-09-19 07:23:34 53 /min Darci Joya Body temperature 2020-09-19 07:23:34 36.83 Dawna Fuad ton Pentecostal Respiratory rate 2020-09-19 07:23:34 18 /min Fuad [...] 1 VW PORTABLE 2020-09-18 09:37:58 Eagle Serra Pentecostal POC GLUCOSE 2020-09-18 08:31:00 Hendrix, Adalid Que [...] 1 VW PORTABLE 2020-09-16 20:58:39 Flory Hoffman Pentecostal POC GLUCOSE 2020-09-16 17:59:00 Hendrix, Adaliddaniel Bejarano Met hodist XR CHEST 1 VW PORTABLE 2020-09-16 16:27:11 Flory Hoffman Pentecostal SURGICAL PATHOLOGY 2020-09-16 16:11:00 Hendrix, Adalid Bejarano Pentecostal REQUEST BAL CELL COUNT AND 2020-09-16 14:46:00 HendrixAdalid farah Pentecostal DIFFERENTIAL CYTOLOGY 2020-09-16 13:20:00 HendrixAdalid farah Met hodist (NON-GYNECOLOGICAL) REQUEST MA AN ELECTIVE 2020-09-16 13:03:19 Jaskaran Molina Meth odist ENDOTRACHEAL AIRWAY CYTOLOGY 2020-09-16 10:45:00 Hendrix, Adalid Bejarano Met hodist (NON-GYNECOLOGICAL) REQUEST CYTOLOGY 2020-09-16 10:44:00 HendrixAdalid farah Met hodist (NON-GYNECOLOGICAL) REQUEST TTE COMPLETE, W CONTRAST, 2020-09-16 10:00:00 Kendra Penaist W DOPPLER ([id number]) [place] POC GLUCOSE 2020-09-16 09:16:[address] CHEST WO CONTRAST 2020-09-16 08:50:00 Apple Agarwal [facility] [place] CYTOLOGY 2020-09-16 06:12:00 HendrixAdalid farah Met hodist (NON-GYNECOLOGICAL) REQUEST HC COMPLETE BLD COUNT 2020-09-16 04:25:00 Flory Hoffman Pentecostal W/AUTO DIFF B NATRIURETIC PEPTIDE 2020-09-16 04:25:00 Cipriano Powell Pentecostal [place] ABO AND RH CONFIRMATION 2020-09-16 04:25:00 Alea Osborneist POC GLUCOSE 2020-09-16 04:25:00 Burgos, Anali Faganist BASIC METABOLIC PANEL 2020-09-16 04:00:00 HoffmanFlory matos Pentecostal MAGNESIUM LEVEL 2020-09-16 04:00:00 HoffmanFlory matos Me thodist PHOSPHORUS LEVEL 2020-09-16 04:00:00 Flroy Hoffman ethodist ESTIMATED GFR 2020-09-16 04:00:00 Burgos, Anali Faganist TYPE AND SCREEN 2020-09-16 01:35:00 Alea Osborne ANTIBODY IDENTIFICATION 2020-09-16 01:35:00 Burgos, Anali Faganist POC GLUCOSE 2020-09-16 01:06:00 Burgos, Anali Joya URINE CULTURE 2020-09-15 21:52:00 Darci Fritz Meth odmilly Ryan POC GLUCOSE 2020-09-15 20:59:00 Burgos, Anali Faganist URINALYSIS SCREEN AND 2020-09-15 18:55:00 Nwogu, Kendra Osei on Pentecostal MICROSCOPY, WITH REFLEX [place] TO CULTURE POC GLUCOSE 2020-09-15 17:11:00 Burgos, Anali Faganist POC GLUCOSE 2020-09-15 11:52:00 Burgos, Anali Bejarano Pentecostal POC GLUCOSE 2020-09-15 08:08:00 Burgos, Anali Joya HC COMPLETE BLD COUNT 2020-09-15 04:50:00 HoffmanFlory matos Pentecostal W/AUTO DIFF BASIC METABOLIC PANEL 2020-09-15 04:50:00 HoffmanFlory matos Pentecostal MAGNESIUM LEVEL 2020-09-15 04:50:00 Flory Hoffman Me thodist PHOSPHORUS LEVEL 2020-09-15 04:50:00 Flory Hoffman ethodist ESTIMATED GFR 2020-09-15 04:50:00 Burgos, Anali Bejarano Pentecostal POC GLUCOSE 2020-09-14 21:19:00 Burgos, Anali Bejarano Pentecostal POC GLUCOSE 2020-09-14 17:11:00 Burgos, Anali Bejarano Pentecostal POC GLUCOSE 2020-09-14 13:39:00 Burgos, Anali Grey Bejarano Pentecostal HC COMPLETE BLD COUNT 2020-09-14 08:44:00 Kendra Pena on Pentecostal W/AUTO DIFF [place] BASIC METABOLIC PANEL 2020-09-14 07:08:00 NwoguKendra on Pentecostal [place] ESTIMATED GFR 2020-09-14 07:08:00 Burgos, Anali Bejarano Pentecostal POC GLUCOSE 2020-09-14 07:08:00 Burgos, Anali Dorseyh Que Bejarano Pentecostal HEMOGLOBIN A1C 2020-09-14 05:30:00 Clark Castro [place] Pent[facility]ostal HC COMPLETE BLD COUNT 2020-09-14 05:30:00 Aubrey, Anali Alejandre Que Cal moni Pentecostal W/AUTO DIFF BLOOD CULTURE, AEROBIC & 2020-09-13 20:40:00 Kendra Pena Pentecostal ANAEROBIC [place] POC GLUCOSE 2020-09-13 19:28:00 Burgos, Anali Grey Bejarano Pentecostal TROPONIN 2020-09-13 17:00:00 Darci Fritz Meth jhonathan Johnson R. COVID-19 QUALITATIVE PCR 2020-09-13 15:07:00 Franny Fritz R. NM LUNG PERFUSION IMAGING 2020-09-13 13:26:[address] CHEST WO CONTRAST 2020-09-13 12:50:00 Apple Agarwal [facility] [place] TROPONIN 2020-09-13 11:56:00 Darci Fritz Meth odmilly Johnson R. US DUPLEX VENOUS LOWER 2020-09-13 11:00:00 Farnaz Fritz on Pentecostal EXTREMITY RIGHT Alex R. ECG 12-LEAD 2020-09-13 09:59:35 Radha Nunn on Pentecostal HC COMPLETE BLD COUNT 2020-09-13 08:18:00 Gera Fritz n Pentecostal W/AUTO DIFF Alex R. PROTHROMBIN TIME WITH INR 2020-09-13 08:18:00 Cal Fritz Alex R. PARTIAL THROMBOPLASTIN 2020-09-13 08:18:00 Farnaz Fritz on Pentecostal TIME (PTT) Alex RTony BASIC METABOLIC PANEL 2020-09-13 08:18:00 Gera Fritzist Alex R. TROPONIN 2020-09-13 08:18:00 CrescenciocharlotteDarci willson Meth odist Alex R. ESTIMATED GFR 2020-09-13 08:18:00 Ahmet Bejarano Meth odist Alex R. MAGNESIUM LEVEL 2020-09-13 08:18:00 [facility] [place] Meth odist Alex R. ECG 12-LEAD 2020-09-13 08:14:16 Ahmet Bejarano Meth odist Alex R. ECG ED PRELIMINARY 2020-09-13 08:13:29 Crescenciocharity [facility] ethodist INTERPRETATION Alex Ryan [id number] 2020-09-12 00:00:00 Provider, Shanika Joya MRI BRAIN [...] Future Scheduled 2020-06-01 INFLUENZA VACCINE Gera horan Pentecostal Test 00:00:00 [code = INFLUENZA VACCINE] Future Scheduled 2005-01-04 65+ PNEUMOCOCCAL Darci Pentecostal Test 00:00:00 VACCINE (1 of 1 - PPSV23) [code = 65+ PNEUMOCOCCAL VACCINE (1 of 1 - PPSV23)] Future Scheduled 1990-01-04 SHINGLES VACCINES (#1) [place] [facility] Test 00:00:00 [code = SHINGLES VACCINES (#1)] Future Scheduled 1956 COVID-19 VACCINE (#1) [place] [facility] Test 00:00:00 [code = COVID-19 VACCINE (#1)] Future Scheduled 1950-01-04 DIABETES: RETINAL EYE [place] [facility] Test 00:00:00 EXAM [code = DIABETES: RETINAL EYE EXAM] Future Scheduled 1950-01-04 DIABETIC FOOT EXAM [place] [facility] Test 00:00:00 [code = DIABETIC FOOT EXAM] Encounters Start End Encounter Admission Attending Care Care Encounter Source Date/Time Date/Time Type Type Clinicians Facility Department ID 2020-10-18 2020-10-18 Office Kale [facility] [id number] 20 16:20:54 16:53:41 Visit Thomas Hayward [id number] [place] [id number] Karen [id number] [facility] 2020-09-13 2020-09-19 Inpatient HENDRIX, [facility] 064 [id number] [place] 00:00:00 00:00:00 ADALID [address] 2020-08-30 2020-08-30 Outpatient SCHMIDT, [facility] [id number] [place] 00:00:00 00:00:00 EDWARD [address] 2020-08-30 2020-08-30 [id number] [place] 00:00:00 00:00:00 EDWARD [address] 2020-08-30 2020-08-30 Outpatient SCHMIDT, [facility] [id number] [place] 00:00:00 00:00:00 EDWARD [address] 2020-08-30 2020-08-30 Outpatient SCHMIDT, [facility] [id number] [place] 00:00:00 00:00:00 EDWARD [address] 2016-06-15 2016-06-15 Emergency [facility] 064 [id number] [place] 00:00:00 00:00:[address] 2016-06-09 2016-06-11 Outpatient POPPY PRADO [facility] 012 [id number] [place] 00:00:00 00:00:[address] 2015-12-31 2015-12-31 Outpatient SHAN, [facility] 684 [id number] [place] 00:00:00 00:00:00 BRETT [address] 2015-12-30 2015-12-30 Outpatient ARIEL [facility] 670 [id number] [place] 00:00:00 00:00:00 BRETT [address] Results Test Description Test Time Test Comments Results Result Comments Source Surgical pathology request 2020-10-07 16:51:20 Test Item Value Reference Range Interpretation Comme nts Case number (test code = [id number]) [id number] Surgical pathology report (test code See link below for PDF Molasses Preparer ort = 2255) Result status (test code = 0381559) This is Supplemental Report for [id number] JAIRO (test code = JAIRO) RADHA [id number] 09/16/2020Block B1 [facility] rmfvtli1767-47-76 08:45:47 Test Item Value Reference Range Interpretation Comments POC glucose (test 174 mg/dL 65-99 H Supply Chain Design Manager N paulette: Shittu code = 35102-5) Keyaunmiginger Device ID: [id number] able: [facility] Notified collections curator Interpretation Abnormal (test code = 56826-9) [facility] jqnhbkxg5715-81-74 08:05:46 Test Item Value Reference Range Interpretation Comments WBC (test code = 56718-6) 6.70 4.50- 11.00 k/uL RBC (test code = 21454-1) 4.61 m/uL 4.2-5.5 HGB (test code = 718-7) 12.0 g/dL 12-16 HCT (test code = 4544-3) 36.7 % 37-47 L MCV (test code = 787-2) 79.6 fL 82-100 L MCH (test code = 785-6) 26.0 pg 27-34 L MCHC (test code = 786-4) 32.7 g/dL 31-37 RDW - SD (test code = 70874-2) 37.4 fL 37-55 MPV (test code = 85509-6) 11.4 fL 8.8-13.2 Platelet count (test code = 207 150- 400 k/uL 95114-8) Nucleated RBC (test code = 0.00 /100 WBC 02822-8) Lab Interpretation (test code = Abnormal 71748-6) Bejarano MethodistBasic metabolic vkjpn6419-96-00 07:59:07 Test Item Value Reference Range Interpretation Comments Sodium (test code = 2951-2) 140 135- 148 mEq/L Potassium (test code = 2823-3) 4.0 3.5- 5.0 mEq/L Chloride (test code = 2075-0) 104 98- 112 mEq/L CO2 (test code = 2027-9) 24 24- 31 mEq/L Anion gap (test code = 53720-3) 12@ANIO 7- 15 mEq/L BUN (test code = 3094-0) 12 mg/dL 8-23 Creatinine (test code = 2160-0) 1.29 mg/dL 0.5-0.9 H Glucose (test code = 2345-7) 148 mg/dL 65-99 H Calcium (test code = 47133-4) 8.7 mg/dL 8.8-10.2 L Lab Interpretation (test code = Abnormal 39421-0) Bejarano MethodistEstimated [id number] 07:59:07 Test Item Value Reference Range Interpretation Comments Estimated GFR (test 39 mL/min/1.73 m2 Jude Derrick bella Units code = 5488) InterpretationG 1 >=90 Claudia l or highG2 60-89 Mildly decrease dG3a 45-59 Mil dly to moderately decr jzxagQ9k 30-44 Moderately to s everely decreasedG4 15-29 Severe ly decreasedG5 <15 Kidney skye lureThe eGFR was calcul ated using the Chron ic Kidney Disease Epidemiology Collaboration ( CKD-EPI) equation. Interpretation is based on recommendati ons of the National Ki dney Foundation-Kidn ey Disease Outcome s Quality Initiat lona (NKF-KDOQI) pub lished in 2013. Lab Interpretation Abnormal (test code = 78966-3) Bejarano MethodistBlood culture, aerobic & jxteetbyq0415-77-85 02:03:08 Test Item Value Reference Range Interpretation Comments Blood culture No growth Specimen isolate (test after 5 days InformationSpe cimen code = 600-7) of Source: BloodS pecimen incubation. Site: Left Fore arm [place] MethodistXR Chest 1 Vw Ahkjxgec1953-90-55 09:42:47Hm Interface, Radiology Results Incoming - 09/18/2020 [...] of cervicothoracic spine partially visualized.1D2RAD_PS02[place] MethodistCytology (non-gynecological) khkzemx1019-37-16 20:12:25 Test Item Value Reference Range Interpretation Comments Case number (test code = [id number]) Cytology See link below for (non-gynecological) PDF Lab Report report (test code = 1178) Result status (test code This is Final Report = [id number]) for [id number] [place] MethodistMagnesium mzzve5670-32-93 08:07:08 Test Item Value Reference Range Interpretation Comments Magnesium (test code = 02126-1) 1.7 mg/dL 1.6-2.4 [place] MethodistPhosphorus [id number] 08:07:05 Test Item Value Reference Range Interpretation Comments Phosphorus (test code = 2777-1) 2.4 mg/dL 2.4-4.5 [place] MethodistCBC with platelet and pxefjkawyjfi9586-66-33 06:16:54 Test Item Value Reference Range Interpretation Comments WBC (test code = 77515-7) 8.54 4.50- 11.00 k/uL RBC (test code = 80144-6) 4.85 m/uL 4.2-5.5 HGB (test code = 718-7) 12.4 g/dL 12-16 HCT (test code = 4544-3) 39.2 % 37-47 MCV (test code = 787-2) 80.8 fL 82-100 L MCH (test code = 785-6) 25.6 pg 27-34 L MCHC (test code = 786-4) 31.6 g/dL 31-37 RDW - SD (test code = 38.2 fL 37-55 55961-1) MPV (test code = 22259-2) 11.8 fL 8.8-13.2 Platelet count (test code 195 150- 400 k/uL = 70426-2) Nucleated RBC (test code 0.00 /100 WBC = 40110-8) Neutrophils (test code = 55.1 % 39-69 29512-0) Lymphocytes (test code = 29.2 % 25-45 99180-8) Monocytes (test code = 9.6 % 0-10 26990-9) Eosinophils (test code = 4.6 % 0-5 44608-4) Basophils (test code = 1.1 % 0-1 H 83038-1) Immature granulocytes 0.4 % 0-1 "Immat ure (test code = 64969-6) granul ocytes" (promyelocytes, myelocytes, metamyelocytes) Lab Interpretation (test Abnormal code = 66972-6) Darci JoyaUrine ldrgaqq6784-87-13 00:54:02 Test Item Value Reference Range Interpretation Comments Urine culture Mixed danny Specimen isolate (test <=10-3 col/cc InformationSp ecimen code = 94553-2) Source: Urin eSpecimen Site: [facility] zayda Bejarano PentecostalBAL cell count and fkdxhlgkddyq1813-62-65 21:40:34 Test Item Value Reference Range Interpretation Comments BAL specimen source MAX BAL (test code = 75698-7) BAL cell count (test 0.040 m/mL Normal ranges: code = 20521-3) Nonsmokers: 0.007 - 0.363 Smokers: 0 - 1. 31 73% viability, many rbc's present BAL PAMS (test code = 3 % Normal ranges: 87359-1) Nonsmokers: 65 - 100 Smokers: 81 - 1 00 BAL PMNS (test code = 83 % Normal ranges: 9306-2) Nonsmokers: 0 - 3 Smok ers: 0 - 2 BAL eosinophils (test 10 % Normal ranges: code = 81161-1) Nonsmokers: 0 - 1 Smok ers: 0 - 1 BAL lymphs (test code = 4 % Norm al ranges: 05861-5) Nonsmokers: 0 - 10 Smo kers: 0 - 5 JAIRO (test code = JAIRO) BAL MAX Bejarano MethodistTransthoracic Echocardiogram Complete, (w Contrast, Strain and 3D if needed)2020-09-16 13:08:00Interface, Radiology Results In - 09/16/2020 1:09 PM [facility] Echocardiography Report [id number] [facility], [place] [address], [place] [address] [facility].Name: FRANTZ WEATHERS Pat.ID: [id number].Date: 09/16/2020 Refer.MD: ANALI BURGOS MDExam Time: 9:19:00 AM Study Type:Routine Echo Height: 62in Weight: 148lb BSA: 1.68 m2 Age: 3 1940,80Y Sex: FEMALE BP: 120/56 HR: 73 bpm Sonogrphr: Aylin Rodriguez, [place], [facility] Pat. Stat.:Inpatient Room: [place] [address] Study Status:Final Echo Event ID:[id number] Order ID: [id number] Reason for Study:Syncope Procedures: 2D Echo, Colorflow [...] of 5 mmHg. MEASUREME NTS: 2DParasternal Long [place] AoAn 1.9 cm LVPWd 1 cm Ao [...] SVi 41 ml/m2 TV Pressure Gradient TV KdTlc984 cm/s TV PG 27 mmHg WALL MOTION:-------- RESTING WALL MOTION:Basal Inferoseptal wall is hypokinetic. Normal wall motion in allother carrington.Wall Index = 1.1Signed 09/16/2020 01:08 PMMarie Tapia VzptclvuySwllqw4772-73-77 13:03:19 Jaskaran Molina MD 09/16/2020 1:05 PMAirway [...] Attempts at Approach: 1[facility] MethodistCT Chest Wo Cjgspgjz5421-22-45 09:34:07Hm Interface, Radiology Results Incoming - 09/16/2020 [...] susp icious for malignant adenopathy. 1D2RAD_PS02[place] MethodistAntibody wayhsiccqipyao7692-05-66 06:07:00 Test Item Value Reference Range Interpretation Comments Antibody ID (test code = 73605-7) POS, Anti-D [place] MethodistABO and Rh ajxgpydlxcrn7080-57-57 06:06:00 Test Item Value Reference Range Interpretation Comments ABO grouping (test code = 883-9) A Rh type (test code = 13884-5) NEG [place] MethodistB natriuretic hktahes0402-32-58 05:53:02 Test Item Value Reference Range Interpretation Comments BNP (test code = 29005-2) 56 pg/mL 0-100 [place] MethodistType and dsiqfu5868-67-68 03:03:00 Test Item Value Reference Range Interpretation Comments ABO grouping (test code = 883-9) A Rh type (test code = 58692-1) NEG Antibody screen (gel) (test code = POS 890-4) [place] MethodistUrinalysis screen and microscopy, with reflex to culture 2020-09-15 22:06:01 Test Item Value Reference Range Interpretation Comments Specimen site (test code = Catheterized 3005641) Color, UA (test code = 5778-6) Yellow Appearance, UA (test code = Clear 5767-9) Specific gravity, UA (test code 1.017 1.001-1.035 = 5811-5) pH, UA (test code = 5803-2) 5.0 5.0-8.5 Protein, UA (test code = Negative Negative 66058-4) Glucose, UA (test code = Negative Negative 08321-8) Ketones, UA (test code = 2514-8) Negative Negative Bilirubin, UA (test code = Negative Negative 5770-3) Blood, UA (test code = 5794-3) Negative Negative Nitrite, UA (test code = 5802-4) Negative Negative Urobilinogen, UA (test code = <2.0 <2.0 48704-9) Leukocyte esterase, UA (test Small Negative A code = 5799-2) Epithelial cells, UA (test code 2 /HPF = 5787-7) WBC, UA (test code = 5821-4) 32 0- 4 /HPF H RBC, UA (test code = 16151-7) 3 0- 5 /HPF Bacteria, UA (test code = Few None seen 03079-2) Yeast, UA (test code = 96923-5) None seen Yeast with pseudohyphae, UA None seen (test code = 21789-1) Hyaline casts, UA (test code = 20 /LPF 5796-8) Lab Interpretation (test code = Abnormal 80767-7) Darci JoyaHemoglobin [id number] 11:41:57 Test Item Value Reference Range Interpretation Comments Hemoglobin A1C (test 9.1 % 4-5.6 H HbA1c c utoffs for code = 33462-2) diagnosing diabetes:4.0% - 5.6% = normal5.7% - 6.4% = increased risk for diabetes (prediabetes)9> =6.5% = xciyklxo5Osis s for glycemic contro l (ADA 2016)< 7.0% Ta rget for non adults with ganesh betes. More or less stringent targe ts may be appropriate for individual tamar ents. <7.5% Target for Children and adolescents wit h type 1 diabetes. Lab Interpretation (test Abnormal code = 31853-6) Darci JoyaCOVID-19 qualitative [id number] 20:21:50 Test Item Value Reference Range Interpretation Comments Interpretation (test Negative results do code = 2182482) not preclude 2019-nCoV infection and should not be used as the sole basis for treatment or other patient management decisions. Negative results must be combined with clinical observations, patient history, and epidemiological information. COVID-19 qualitative Not-Detected Not-Detected PCR result (test code = 78115-3) COVID-19 qualitative See link below for C ase Number: PCR (test code = PDF Lab Report [id number]) Darci Mejía 12 hpng1630-77-04 19:27:22 Test Item Value Reference Range Interpretation Comments Ventricular rate (test 93 code = 253) Atrial rate (test code 93 = 255) MA interval (test code 128 = 266) QRSD [...] are now present-QRS axis shifted left- Darci DaleFuayyjiojLqlsubsa0094-90-09 18:10:56 Test Item Value Reference Range Interpretation Comments Troponin (test code 0.012 ng/mL 0-0.04 In patie nts suspected = 07358-8) of having a rochelle cardial infarction, nelly [...] decreased by le ss than 0.020 ng/mL [facility] duplex venous lower joifayswk1676-09-08 15:09:00Interface, Radiology Results In - 09/13/2020 3:09 PM [facility] Vascular Ultrasound Laboratory Lower Extremity Venous Fxgqnt8929 [address] [address] Pat.Name: FRANTZ WEATHERS Pat.ID: [id number] .Date: 09/13/2020 Refer.MD: CAS PATE MD, ALEX FRITZ MDExraven Time: 10:32:00 AM Study Type:LE Venous Height: 62in Weight: 148lb BSA: 1.68 m2 Age: 3 1940,80Y Sex: FEMALE Sonogrphr: TITO Koroma, Tong Gutierrez, RDMS, RVTPat. Stat.:Inpatient Room: ED19 Tape Vol: CM, CPT - 4: 02991 Echo Event ID:[id number] Order ID: [id number] Reason for Study:Leg swelling or pain, DVT [...] 09/13/2020 03:09 PMZsolt Chapin MD, RPVI Darci JoyaAZ Lung Perfusion Pwvrmkl5746-69-65 13:53:35Hm Interface, Radiology Results 09/13/2020 1:56 PM CSTPROCEDURE: [place] LUNG PERFUSION IMAGINGINDICATION: PE suspected low pretest [...] refer to the CT study report for details.[facility]-[id number] MethodistPartial thromboplastin time, activated 2020-09-13 09:09:09 Test Item Value Reference Range Interpretation Comments PTT (test code = 24.1 23.0- 36.0 [place] [address]-2) unfractionated heparin is61.0-112.0 se conds which corresponds to Anti-Xa0.3-0.7 U/ml. Darci JoyaProthrombin time with EGL1868-82-46 09:08:33 Test Item Value Reference Range Interpretation Comments Prothrombin time (test 14.5 11.5- 14.5 sec code = 5902-2) INR (test code = 1.1 The Interna tional 40173-4) Normalized Rati o (INR) is a therapeutic m onitoring tool for patien ts who are stable on oral anticoagulant t herapy. An INR of 2.0-3.0 is suggested for d eep vein thrombosis/pulm onary embolism. [facility] ED Preliminary Interpretation - Not an Tlkvw9095-40-11 08:13:29 Test Item Value Reference Range Interpretation Comments JAIRO (test code = JAIRO) Alex Fritz MD 09/14/2020 6:44 [facility] ED Preliminary Interpretation - Not an OrderPerformed by: Alex Fritz MDAuthorized by: Alex Fritz MD ECG reviewed by ED Physician in the absence of a reamer hand: yes Interpretation: Interpretation: abnormal Rate: ECG rate: 88 ECG rate assessment: normal Rhythm: Rhythm: sinus rhythm Ectopy: Ectopy: PVCs PVCs: FrequentQRS: QRS axis: Normal QRS intervals: NormalConduction: Conduction: normal ST segments: ST segments: NormalT waves: T waves: normal Comments: Prolonged QT Lab Interpretation Abnormal (test code = 63808-4) [place] [id number] 10:45:49This exam was not acquired at a [employer] facility and has not been interpreted by a [employer] Provider. The exam was imported into our imaging system.[facility] External [id number] 10:45:27This exam was not acquired at a [facility] facility and has not been interpreted by a Pentec[employer]al Provider. The exam was imported into our imaging system.[facility] Whole Body External [id number] 10:45:06This exam was not acquired at a Pentec[employer]al facility and has not been interpreted by a Pentecostal Provider. The exam was imported into our imaging system.[facility]
[2020-11-09 21:47] LABS: Protime INR 1.09
[2020-11-09 21:51] LABS: Absolute Lymphocytes (CBC) 1.6 K/uL (0.7-4.9); Basophils % 1.2 % (0-1.3); Lymphocytes % 23.5 % (15.3-44.8); MPV 10.4 fL (7.6-11.3); RBC Red Blood Cell Count 5.06 M/uL (3.86-4.86)
[2020-11-09] MEDS ORDERED: NA CHLORIDE 0.9% 1,000 ML ONE (21:59)
[2020-11-09 22:07] LABS: ALT/SGPT 18 U/L (12-78); Albumin 2.8 g/dL (3.4-5.0); Alkaline Phosphatase 77 U/L (45-117); BUN Blood Urea Nitrogen 21 mg/dL (7-18); Bicarbonate 30 mmol/L (21-32); Bilirubin Direct < 0.1 mg/dL (0-0.2); Bilirubin Total 0.3 mg/dL (0.2-1.0); Glucose Level 217 mg/dL (74-106); NT PRO-BNP 900 pg/mL (<450); Protein, Total 6.2 g/dL (6.4-8.2); Sodium Level 137 mmol/L (136-145); Troponin (Emerg Dept Use Only) < 0.02 ng/mL (0.0-0.045)
[2020-11-09 22:08] LABS: AST/SGOT 23 U/L (15-37); Potassium 4.2 mmol/L (3.5-5.1)
--- NOTE | 2020-11-10 00:02 | P.HP ---
Certification for Inpatient Patient admitted to: Inpatient With expected LOS: >2 Midnights Patient will require the following post-hospital care: None Practitioner: I am a practitioner with admitting privileges, knowledge of patient current condition, hospital course, and medical plan of care. Services: Services provided to patient in accordance with Admission requirements found in Title 42 Section 412.3 of the Code of Federal Regulations <Lucas Condon - Last Filed: 11/09/20 23:56> Patient History Date of Service: 11/09/20 Primary Care Provider: Dr. monge, Dr. hare Reason for admission: AMS History of Present Illness: 80-year-old female with history of metastatic lung cancer, diabetes m ellitus type 2, hypertension, GERD presents to the emergency department for altered mental status and low blood pressure. Patient lives at home with her , has I [facility] [employer] [facility]. Patient was recently admitted for similar complaint in addition to large left pleural effusion. Patient was discharged and had outpatient visit for Pleur-Evac placement to the left chest wall which [facility] has been helping to manage. noted today that she is becoming more confused, also noted that when she was not completely lucid she was fumbling with her pill container and he is not sure if she may actually taken an extra dose of any of her medications. Patient was noted to be mildly hypotensive at home with EMS, given 500 cc normal bolus, mentation improved but still not back at baseline. Blood pressure is in the ER with systolic around 90-100. Patient is alert, oriented x2 with baseline 3. Patient also noted to have been treated for urinary tract infection during her previous admission with 2 blood culture bottles positive for this coagulase negative Staph epidermis and urine culture positive for Staph epidermis. Patient was discharged on Omnicef. Urine from ED still currently pending as patient refused catheterization. ED provider wishes to admit patient for further evaluation and management. When I saw the patient in the ER she was awake, alert, oriented x2. Patient do es not appear septic at this time. Blood cultures, lactate, urinalysis pending. Vital signs stable, not tachycardic. - Past Medical/Surgical History Diabetic: Yes -: Breast cancer -: Hypertension -: Dyslipidemia -: Osteoarthritis -: Hypothyroidism -: bilateral mastectomy -: tummy tuck -: breast reduction -: Appendectomy -: partial hysterectomy Psychosocial/ Personal History: Patient is retired, lives with her and has home health - Family History Brother -: Diabetes Sister -: Diabetes - Social History Smoking Status: Never smoker Alcohol use: No CD- Drugs: No Caffeine use: Yes Place of Residence: Home <Lucas Condon - Last Filed: 11/09/20 23:56> Date of Service: 11/10/20 Home medications list reviewed: Yes - Past Medical/Surgical History Diabetic: Yes -: Diabetes mellitus type 2 <Jan Armas - Last Filed: 11/10/20 11:09> Allergies iodine Allergy (Verified 10/30/20 22:03) Hives/Rash Home Medications: Anastrozole [Arimidex*] 1 mg PO DAILY 03/05/16 Clonidine HCl [Catapres] 0.1 mg PO TID 10/31/20 Escitalopram [Lexapro*] 20 mg PO DAILY 10/31/20 Furosemide [Lasix*] 40 mg PO DAILY 10/31/20 Hyoseyamin 0.125 mg PO Q4H PRN 10/31/20 Insulin Degludec [Tresiba Flextouch U-100] 36 units SQ DAILY 10/31/20 carvediloL [Coreg*] 6.25 mg PO BID 10/31/20 Cefdinir [Omnicef] 300 mg PO BID #14 capsule 11/01/20 Dicyclomine HCl 20 mg PO TID 11/05/20 Insulin Aspart [Novolog Flexpen] 9 unit SQ TID 11/05/20 Losartan Potassium 50 mg PO BID 11/05/20 Omeprazole 20 mg PO DAILY 11/05/20 Thyroid,Pork [Garfield Thyroid] 15 mg PO DAILY 11/05/20 Review of Systems is unable to be obtained <uLcas Condon - Last Filed: 11/09/20 23:56> Physical Examination - Physical Exam General: Alert, In no apparent distress, Oriented x2 HEENT: Atraumatic, Normocephalic, Other (Mucous membranes dry) Respiratory: Normal air movement, Other (Pleur-Evac catheter noted to left chest wall currently sealed) Cardiovascular: No edema, Regular rate/rhythm, Normal S1 S2 Capillary refill: <2 Seconds Gastrointestinal: Normal bowel sounds, Soft and benign, Non-distended Musculoskeletal: No swelling, No contractures, No erythema Integumentary: No significant lesion, No tenderness/swelling, No erythema Neurological: Normal strength at 5/5 x4 extr, Normal tone, Sensation intact - Studies Laboratory Data (last 24 hrs) 11/09/20 21:20: PT 12.8 H, INR 1.09 11/09/20 21:20: WBC 6.7 D, Hgb 12.8, Hct 40.0, Plt Count 155 11/09/20 21:20: Sodium 137, Potassium 4.2, BUN 21 H, Creatinine 1.77 H, Glucose 217 H, Magnesium 2.0, Total Bilirubin 0.3, AST 23, ALT 18, Alkaline Phosphatase 77 <Lucas Condon - Last Filed: 11/09/20 23:56> - Studies Laboratory Data (last 24 hrs) 11/09/20 21:20: PT 12.8 H, INR 1.09 11/09/20 21:20: WBC 6.7 D, Hgb 12.8, Hct 40.0, Plt Count 155 11/09/20 21:20: Sodium 137, Potassium 4.2, BUN 21 H, Creatinine 1.77 H, Glucose 217 H, Magnesium 2.0, Total Bilirubin 0.3, AST 23, ALT 18, Alkaline Phosphatase 77 <Jan Armas - Last Filed: 11/10/20 11:09> Assessment and Plan - Plan Assessment Metabolic encephalopathy secondary suspected accidental overdose vs. urinary tract infection Metastatic lung cancer with chronic left pleural effusions status post Pleur- Evac indwelling catheter placement Diabetes mellitus type 2 Hypertension GERD Plan Metabolic encephalopathy secondary suspected accidental overdose vs. urinary tract infection: states patient was fiddling with her medications which she was not completely lucid, is concerned she may take an extra dose of 1 or more of her medications. Patient also was recently treated here with urinary tract infection, urine currently pending as patient refused catheterization. During previous admission 2 blood culture bottles positive for coagulase negative Staph epidermis and urine culture positive for Staph epidermis, patient was discharged on Omnicef, culture and sensitivity indicate sensitive to vancomycin, the thought maybe that this is a contaminant but if it is not she will need to be on vancomycin. Will review current urine specimen when collected. Metastatic lung cancer with chronic left pleural effusions status post Pleur- Evac indwelling catheter placement: Catheter site well dressed, sealed. Will continue with management throughout hospitalization, has been reports that home health is draining off significant amounts of fluid either every other day or daily. Diabetes mellitus type 2: A.c. HS Accu-Cheks scale insulin therapy. 1800 ADA diet. Hypertension: Obtain and continue home meds GERD: Obtain and continue home meds Discharge Plan: Home Plan to discharge in: 48 Hours - Advance Directives Does patient have a Living Will: Yes Does patient have a Durable POA for Healthcare: Yes - Code Status/Comfort Care Code Status Assessed: Yes (DNR) Critical Care: No Time Spent Managing Pts Care (In Minutes): 55 <Lucas Condon - Last Filed: 11/09/20 23:56> - Plan Case discussed with MUSSEL OPENER. Agree with plan of care. Continue antibiotic therapy. Review and restart home medication. Await blood and urine culture results. Will monitor closely. Please see progress note for details. <Jan Armas - Last Filed: 11/10/20 11:09>
[2020-11-10 00:26] LABS: SARS-COV-2 RT PCR NEGATIVE (NEGATIVE)
[2020-11-10 00:36] LABS: Urine Blood NEGATIVE (NEG); Urine Glucose TRACE (NEG); Urine Protein TRACE (NEG); Urine Specific Gravity 1.015 (1.005-1.030); Urine pH 5.5 (5.0-7.0)
--- NOTE | 2020-11-10 00:44 | EDPHYS ---
Physician Documentation [facility] Name: Dahiana Smith Age: 80 yrs Sex: Female : 1940 Arrival Date: 11/09/2020 Time: 21:16 Bed 17 Private MD: ED Physician Jm White HPI: 11/09 22:25 This 80 yrs old Female presents to ER via EMS with complaints of Confusion. mh7 22:25 The patient presents with confusion. mh7 22:26 Onset: The symptoms/episode began/occurred today, at an unknown time. Possible causes: mh7 elevated blood sugar. Associated signs and symptoms: Pertinent positives: confusion, Pertinent negatives: agitation, combativeness. Current symptoms: In the emergency department the patient's symptoms have improved, moderately, is less confused. The patient has experienced similar episodes in the past, several times. Historical: - Allergies: 21:33 No Known Allergies; ea - PMHx: 21:33 Cancer; Diabetes - IDDM; ea - Immunization history:: Adult Immunizations unknown. - Social history:: Smoking status: Patient denies any tobacco usage or history of. ROS: 22:29 Constitutional: Negative for fever, chills, and weight loss, Eyes: Negative for injury, mh7 pain, redness, and discharge, ENT: Negative for injury, pain, and discharge, Cardiovascular: Negative for chest pain, palpitations, and edema, Respiratory: Negative for shortness of breath, cough, wheezing, and pleuritic chest pain, Abdomen/GI: Negative for abdominal pain, nausea, vomiting, diarrhea, and constipation, Back: Negative for injury and pain, Skin: Negative for injury, rash, and discoloration, Neuro: Negative for headache, weakness, numbness, tingling, and seizure, Allergy/Immunology: Negative for hives, rash, and allergies. Exam: 22:29 Head/Face: Normocephalic, atraumatic. Eyes: Pupils equal round and reactive to light, mh7 extra-ocular motions intact. Lids and lashes normal. Conjunctiva and sclera are non-icteric and not injected. Cornea within normal limits. Periorbital areas with no swelling, redness, or edema. ENT: Nares patent. No nasal discharge, no septal abnormalities noted. Tympanic membranes are normal and external auditory canals are clear. Oropharynx with no redness, swelling, or masses, exudates, or evidence of obstruction, uvula midline. Mucous membranes moist. Neck: Trachea midline, no thyromegaly or masses palpated, and no cervical lymphadenopathy. Supple, full range of motion without nuchal rigidity, or vertebral point tenderness. No Meningismus. Chest/axilla: Normal chest wall appearance and motion. Nontender with no deformity. No lesions are appreciated. 22:29 Respiratory: Lungs have equal breath sounds bilaterally, clear to auscultation and percussion. No rales, rhonchi or wheezes noted. No increased work of breathing, no retractions or nasal flaring. Abdomen/GI: Soft, non-tender, with normal bowel sounds. No distension or tympany. No guarding or rebound. No evidence of tenderness throughout. Back: No spinal tenderness. No costovertebral tenderness. Full range of motion. Skin: Warm, dry with normal turgor. Normal color with no rashes, no lesions, and no evidence of cellulitis. MS/ Extremity: Pulses equal, no cyanosis. Neurovascular intact. Full, normal range of motion. 22:29 Constitutional: The patient appears in no acute distress, alert, awake. 22:29 Cardiovascular: Rate: bradycardic, Rhythm: regular, Pulses: no pulse deficits are appreciated, Heart sounds: normal, normal S1and S2, Edema: is not appreciated, JVD: is not appreciated. 22:29 Neuro: Orientation: to person, place, Mentation: able to follow commands, confused. 22:34 Neuro: Memory: immediate memory is intact, remote memory is impaired, recent memory mh7 is impaired, Cranial nerves: CN II- XII are normal as tested, Cerebellar function: is grossly normal based on the patient's age, Motor: is normal, Sensation: is normal, Gait: not tested. seizure activity, is not displayed by the patient, Abnormal movements: there are no abnormal movements. Vital Signs: 21:15 BP 97 / 53; Pulse 53; Resp 18; Temp 97.4; Pulse Ox 99% ; Weight 64.41 kg; Height 5 ft. ea 2 in. (157.48 cm); Pain 0/10; 22:00 BP 81 / 42; Pulse 53; Resp 16; Pulse Ox 94% on R/A; ea 22:32 BP 101 / 61; Pulse 54; Resp 16; Pulse Ox 99% ; 11/10 00:33 BP 175 / 87; Pulse 64; Resp 18; Pulse Ox 98% on R/A; 11/09 21:15 Body Mass Index 25.97 (64.41 kg, 157.48 cm) MDM: 00:41 Differential Diagnosis: CVA, electrolyte abnormality, alcohol intoxication, 7 hypoglycemia, intracranial bleed, overdose, pneumonia, seizure, sepsis, TIA, UTI, volume depletion. Data reviewed: vital signs, nurses notes, EMS record, old medical records, lab test result(s), cardiac enzymes, CBC, drug level(s), electrolytes, urinalysis, urine drug screen, EKG, radiologic studies, CT scan, plain films. Data interpreted: Pulse oximetry: on room air is 98 %. Interpretation: normal. Counseling: I had a detailed discussion with the patient and/or guardian regarding: the historical points, exam findings, and any diagnostic results supporting the discharge/admit diagnosis, the presence of at least one elevated blood pressure reading (>120/80) during this emergency department visit, lab results, radiology results, the need for further work-up and treatment in the hospital. Response to treatment: the patient's symptoms have markedly improved after treatment. 00:43 Patient medically screened. [facility] 11/09 21:26 Order name: Basic Metabolic Panel 11/09 21:26 Order name: CBC with Diff; Complete Time: 22:41 11/09 21:26 Order name: LFT's; Complete Time: 22:41 11/09 21:26 Order name: Magnesium; Complete Time: 22:41 11/09 21:26 Order name: NT PRO-BNP; Complete Time: 22:41 11/09 21:26 Order name: PT-INR; Complete Time: 22:41 11/09 21:26 Order name: Troponin (emerg Dept Use Only); Complete Time: 22:41 11/09 21:27 Order name: Basic Metabolic Panel; Complete Time: 22:41 [facility] 11/09 21:37 Order name: Glucose, Ancillary Testing; Complete Time: 21:47 [facility] 11/09 21:48 Order name: UDS [facility] 11/09 21:48 Order name: ETOH Level; Complete Time: 22:41 [facility] 11/09 21:48 Order name: Acetaminophen; Complete Time: 22:41 [facility] 11/09 21:48 Order name: Salicylate [facility] 11/09 23:20 Order name: Flu ea 11/09 23:34 Order name: Blood Culture Adult (2) la1 11/09 23:34 Order name: Lactate la1 11/09 23:48 Order name: Urine Microscopic Only la1 11/10 00:26 Order name: COVID-19/FLU A+B; Complete Time: 00:38 EDMS 11/10 00:33 Order name: Urine Dipstick--Ancillary (enter results) sp 11/10 00:37 Order name: Urine Dipstick-Ancillary; Complete Time: 00:38 EDMS 11/10 06:41 Order name: CBC with Automated Diff EDUT 11/10 06:56 Order name: Comprehensive Metabolic Panel EDUT 11/10 06:56 Order name: T4 Free EDUT 11/10 06:56 Order name: Magnesium EDMS 11/10 06:56 Order name: Thyroid Stimulating Hormone EDMS 11/10 08:05 Order name: Glucose, Ancillary Testing EDUT 11/10 12:12 Order name: Glucose, Ancillary Testing EDMS 11/10 16:47 Order name: Glucose, Ancillary Testing EDUT 11/10 19:04 Order name: Urinalysis [facility] 11/09 21:26 Order name: EKG; Complete Time: 21:27 11/09 21:26 Order name: Cardiac monitoring; Complete Time: 21:34 11/09 21:26 Order name: EKG - Nurse/Tech; Complete Time: 21:34 11/09 21:26 Order name: IV Saline Lock; Complete Time: 21:34 11/09 21:26 Order name: Labs collected and sent; Complete Time: 21:34 11/09 21:26 Order name: O2 Per Protocol; Complete Time: 21:34 11/09 21:26 Order name: O2 Sat Monitoring; Complete Time: 21:34 11/09 21:33 Order name: Urine Dipstick-Ancillary (obtain specimen); Complete Time: 00:42 11/09 21:34 Order name: XRAY Chest (1 view) 11/09 21:47 Order name: CT Head Brain wo Cont [facility] 11/10 00:36 Order name: Straight Cath; Complete Time: 00:42 ea 11/10 21:56 Order name: Glucose, Ancillary Testing EDUT 11/11 08:18 Order name: CBC with Automated Diff EDUT 11/11 09:47 Order name: Comprehensive Metabolic Panel EDUT 11/11 09:53 Order name: Gram Stain--Aerobic Bottle EDUT 11/11 10:03 Order name: Magnesium EDUT 11/11 10:36 Order name: Glucose, Ancillary Testing EDUT 11/11 12:05 Order name: Glucose, Ancillary Testing EDUT 11/11 17:10 Order name: Glucose, Ancillary Testing EDUT Administered Medications: 11/09 21:52 Drug: NS 0.9% 1000 ml Route: IV; Rate: 1000 ml; Site: right forearm; ea 11/10 00:36 Follow up: Response: No adverse reaction; IV Status: Completed infusion; IV Intake: ea 1000ml Disposition: 11/10/20 00:43 Hospitalization ordered by Jan Armas for Inpatient Admission. Preliminary diagnosis is Altered mental status, unspecified. - Bed requested for Telemetry/MedSurg (Inpatient). - Status is Inpatient Admission. - Condition is Stable. - Problem is an acute exacerbation. - Symptoms have improved. Signatures: Dispatcher [employer] [facility] Agueda Otoole RN JONAS Yi Urrutia RN RN ea Habalo, Winsy RN JONAS [place]hoan [place] RN RN [facility] Jm White MD MD 7 Corrections: (The following items were deleted from the chart) 11/09 23:38 23:21 CORONAVIRUS+MR.LAB.BRZ ordered. [facility] 11/10 01: 00:43 Hospitalization Ordered by Jan Armas DO for Inpatient Admission. Preliminary cg diagnosis is Altered mental status, unspecified. Bed requested for Telemetry/MedSurg (Inpatient). Status is Inpatient Admission. Condition is Stable. Problem is an acute exacerbation. Symptoms have improved. 7 11/11 17:08 11/10 01:26 11/10/2020 00:43 Hospitalization Ordered by Jan Armas DO for Inpatient ja1 Admission. Preliminary diagnosis is Altered mental status, unspecified. Bed requested for [facility] ER HOLD. Status is Inpatient Admission. Condition is Stable. Problem is an acute exacerbation. Symptoms have improved. 11/11 19:04 17:08 11/10/2020 00:43 Hospitalization Ordered by Jan Armas DO for Inpatient Admission. Preliminary diagnosis is Altered mental status, unspecified. Bed requested for Telemetry/MedSurg (Inpatient). Status is Inpatient Admission. Condition is Stable. Problem is an acute exacerbation. Symptoms have improved. ja1
--- NOTE | 2020-11-10 00:44 | ER ---
Nurse's Notes [facility] Name: Dahiana Smith Age: 80 yrs Sex: Female : 1940 Arrival Date: 11/09/2020 Time: 21:16 Bed 17 Private MD: Diagnosis: Altered mental status, unspecified Presentation: 11/09 21:15 Chief complaint: EMS states: Toned out due to high blood sugar, when they got there EMS ea reports pt's bgl was 200s and reported she was altered. EMS noted her blood pressure in the 80s/ 60s, they initiated IV and gave 500 cc bolus, EMS reported after bolus pt became more oriented. Coronavirus screen: At this time, the client does not indicate any symptoms associated with coronavirus-19. Ebola Screen: No symptoms or risks identified at this time. Initial Sepsis Screen: Does the patient meet any 2 criteria? No. Patient's initial sepsis screen is negative. Does the patient have a suspected source of infection? No. Patient's initial sepsis screen is negative. Risk Assessment: Do you want to hurt yourself or someone else? Patient reports no desire to harm self or others. Onset of symptoms was November 09, 2020. 21:15 Method Of Arrival: EMS: [facility] ea 21:15 Acuity: DULCE 3 ea Triage Assessment: 21:32 General: Appears in no apparent distress. Behavior is cooperative, quiet. Pain: Denies ea pain. Neuro: Level of Consciousness is awake, alert, obeys commands, Oriented to person, place. Respiratory: Airway is patent Respiratory effort is even, unlabored, Respiratory pattern is regular, symmetrical. Derm: Skin is pink, warm \T\ dry. Historical: - Allergies: 21:33 No Known Allergies; ea - PMHx: 21:33 Cancer; Diabetes - IDDM; ea - Immunization history:: Adult Immunizations unknown. - Social history:: Smoking status: Patient denies any tobacco usage or history of. Screenin:31 Abuse screen: Denies threats or abuse. Nutritional screening: No deficits noted. ea Tuberculosis screening: No symptoms or risk factors identified. Fall Risk IV access (20 points). Assessment: 21:36 Reassessment: see triage assessment . Rush Smith [phone]. ea 22:32 Reassessment: Patient and/or family updated on plan of care and expected duration. Pain ea level reassessed. Patient is alert, oriented x 3, equal unlabored respirations, skin warm/dry/pink. 23:30 Reassessment: Patient and/or family updated on plan of care and expected duration. Pain ea level reassessed. Patient alert and oriented to self and time. Respirations even and symmetrical. Pt denies pain at this time. 11/10 00:33 Reassessment: No changes from previously documented assessment. Patient and/or family ea updated on plan of care and expected duration. Pain level reassessed. 07:26 Reassessment: [phone] Rush. ll2 Vital Signs: 11/09 21:15 BP 97 / 53; Pulse 53; Resp 18; Temp 97.4; Pulse Ox 99% ; Weight 64.41 kg; Height 5 ft. ea 2 in. (157.48 cm); Pain 0/10; 22:00 BP 81 / 42; Pulse 53; Resp 16; Pulse Ox 94% on R/A; ea 22:32 BP 101 / 61; Pulse 54; Resp 16; Pulse Ox 99% ; ea 11/10 00:33 BP 175 / 87; Pulse 64; Resp 18; Pulse Ox 98% on R/A; ea 11/09 21:15 Body Mass Index 25.97 (64.41 kg, 157.48 cm) ea ED Course: 11/09 21:16 Patient arrived in ED. ea 21:25 Yi Urrutia, RN is Primary Nurse. ea 21:31 Triage completed. ea 21:31 Maintain EMS IV. Dressing intact. Good blood return noted. Site clean \T\ dry. Gauge \T\ ea site: 20 G to right forearm . 21:32 Patient has correct armband on for positive identification. Placed in gown. Bed in low ea position. Call light in reach. Side rails up X2. milk wagon driver on. Pulse ox on. NIBP on. 21:32 Arm band placed on right wrist. Patient placed in an exam room, on a stretcher, on ea radiology teacher, on pulse oximetry. EKG completed in triage. Results shown to MD. 21:36 Jm White MD is Attending Physician. 7 21:44 XRAY Chest (1 view) In Process Unspecified. EDMS 23:01 CT Head Brain wo Cont In Process Unspecified. EDMS 11/10 00:13 No provider procedures requiring assistance completed. Patient admitted, IV remains in ea place. 00:42 Jan Armas DO is Hospitalizing Provider. [facility] 21:20 Notified Nurse Practitioner and/or Physician Music Grapher of a critical lab result(s), rr5 gram positive cocci Lucas BELT LOOP MAKER informed. Administered Medications: 11/09 21:52 Drug: NS 0.9% 1000 ml Route: IV; Rate: 1000 ml; Site: right forearm; ea 11/10 00:36 Follow up: Response: No adverse reaction; IV Status: Completed infusion; IV Intake: ea 1000ml Intake: 00:36 IV: 1000ml; Total: 1000ml. Outcome: 00:13 Instructed on the need for admit, Demonstrated understanding of instructions. 00:43 Decision to Hospitalize by Provider. [facility] 11/11 19:03 Admitted to Med/surg accompanied by nurse, via wheelchair, room 209. Condition: good Instructed on the need for admit. 19:04 Patient left the ED. Signatures: Dispatcher [employer] [facility] Yi Urrutia RN Kathy Prince ea RN RN Almas Spangler RN RN rr5 Rita Nowak, RN RN ll2 Jm White MD MD 7 Corrections: (The following items were deleted from the chart) 11/09 22:34 22:32 BP 81 / 42; Pulse 53bpm; Resp 16bpm; Pulse Ox 94% RA; ea ea
[2020-11-10 00:58] LABS: Barbiturates NEGATIVE (NEGATIVE); Benzodiazepines NEGATIVE (NEGATIVE); Cocaine NEGATIVE (NEGATIVE); METHAMPHETAM NEGATIVE (NEGATIVE); Methadone NEGATIVE (NEGATIVE); Opiates POSITIVE (NEGATIVE); Phencyclidine NEGATIVE (NEGATIVE); THC Cannibis POSITIVE (NEGATIVE)
[2020-11-10 01:33] LABS: Urine Bacteria 20-50 /HPF (<20); Urine RBC NONE SEEN /HPF (NONE SEEN)
[2020-11-10 01:59] VITALS: BMI 25.7
[2020-11-10] MEDS ORDERED: ONDANSETRON 4 MG/2 ML VIAL IV PRN (02:11)
[2020-11-10] MEDS: NA CHLORIDE 0.9% 1,000 ML IV SCH ×2 (02:11→15:31)
[2020-11-10] MEDS ORDERED: VANCOMYCIN 1 GM in NA CHLORIDE 0.9% 500 ML IVPB SCH (06:00)
[2020-11-10] MEDS ORDERED: VANCOMYCIN 1.25 GM in NA CHLORIDE 0.9% 250 ML IVPB SCH (06:00)
[2020-11-10 06:32] LABS: Absolute Lymphocytes (CBC) 1.2 K/uL (0.7-4.9); Hematocrit 43.7 % (36.0-45.0); Lymphocytes % 20.5 % (15.3-44.8); MPV 9.7 fL (7.6-11.3)
[2020-11-10 06:56] LABS: Albumin 3.1 g/dL (3.4-5.0); Bilirubin Total 0.4 mg/dL (0.2-1.0); Potassium 3.7 mmol/L (3.5-5.1); Protein, Total 6.8 g/dL (6.4-8.2); Thyroid Stimulating Hormone 3.2 uIU/mL (0.360-3.740)
--- NOTE | 2020-11-10 07:24 | EKG ---
Test Date: 2020-11-09 Test Time: 21:21:42 Assembler Dc Field Ring: SAM MEASUREMENT RESULTS: Intervals: Rate: 53 WA: 156 QRSD: 68 QT: 544 QTc: 510 [place]: P: -10 WA: 156 QRS: -19 T: -32 INTERPRETIVE STATEMENTS: Sinus bradycardia Nonspecific ST and T wave abnormality Abnormal ECG Compared to ECG 10/30/2020 14:55:13 ST (T wave) deviation now present Prolonged QT interval no longer present Electronically Signed On 11-10-20 07:23:55 CREATIVE SERVICES COORDINATOR by Maxwell Cruz
[2020-11-10] MEDS: INSULIN -REGULAR HUMAN 50 UNIT/0.5 ML ML SQ SCH ×4 (07:30→21:45)
[2020-11-10] MEDS: VANCOMYCIN 1.25 GM in NA CHLORIDE 0.9% 250 ML IVPB SCH (09:00)
[2020-11-10] MEDS: ENOXAPARIN 30 MG/0.3 ML SQ SCH (09:00)
[2020-11-10] MEDS ORDERED: ENOXAPARIN 30 MG/0.3 ML SQ ONE (09:20)
[2020-11-10] MEDS ORDERED: NA CHLORIDE 0.9% 1,000 ML ONE (09:22)
--- NOTE | 2020-11-10 11:24 | P.PN ---
Subjective Date of Service: 11/10/20 Primary Care Provider: Dr. monge, Dr. hare Chief Complaint: AMS Physical Examination - Vital Signs Blood Pressure: 189/82 Pulse: 67 Respirations: 18 Pulse Ox (%): 95 - Studies Laboratory Data (last 24 hrs) 11/09/20 21:20: PT 12.8 H, INR 1.09 11/09/20 21:20: WBC 6.7 D, Hgb 12.8, Hct 40.0, Plt Count 155 11/09/20 21:20: Sodium 137, Potassium 4.2, BUN 21 H, Creatinine 1.77 H, Glucose 217 H, Magnesium 2.0, Total Bilirubin 0.3, AST 23, ALT 18, Alkaline Phosphatase 77 Assessment & Plan Discharge Plan: Home Plan to discharge in: 72 Hours Physician Review Additional Text: Assessment Toxic Metabolic encephalopathy secondary suspected accidental overdose vs. urinary tract infection with recent history of UTI/bacteremia: Metastatic lung cancer with chronic left pleural effusions status post Pleur- Evac indwelling catheter placement Diabetes mellitus type 2 Hypertension GERD Plan Toxic Metabolic encephalopathy secondary suspected accidental overdose vs. urinary tract infection with recent history of UTI/bacteremia: Cultures obtained 10/30/2020 shows positive Staph epidermidis for blood and urine culture. Patient was discharged on Omnicef at that time. This was not sensitive. Sensitivities are to vancomycin and Levaquin. Will change to Levaquin. Will need to review home medication as well. Patient also tested positive for THC this may be related to one of her medication for metastatic lung disease/cancer. Will check to see if taking medical marijuana. Repeat blood and urine cultures obtained. Will continue to monitor closely. Continue IV fluids. Anticipate home in the next 48 72 hr. I will turn the service over to the hospitalist team tomorrow. I will go plan of care with him. Metastatic lung cancer with chronic left pleural effusions status post Pleur- Evac indwelling catheter placement: Catheter site well dressed, sealed. Will continue with management throughout hospitalization. May need to be drained of fluid every other day. Diabetes mellitus type 2: A.c. HS Accu-Cheks scale insulin therapy. 1800 ADA diet. Hypertension: Obtain and restart home medication GERD: Obtain and restart home medication. Time Spent Managing Pts Care (In Minutes): 55
[2020-11-10] MEDS ORDERED: INSULIN -REGULAR HUMAN 50 UNIT/0.5 ML ML ONE ×2 (12:18→22:07)
--- NOTE | 2020-11-10 12:34 | RAD REPORT ---
EXAM DESCRIPTION: RAD - Chest Single View - 11/09/2020 9:44 pm CLINICAL HISTORY: CHEST PAIN Chest pain. COMPARISON: Chest Single View dated 11/05/2020; Chest Pa And Lat (2 Views) dated 11/05/2020; Chest Singl e View dated 10/30/2020; Chest Pa And Lat (2 Views) dated 12/09/2017 FINDINGS: Portable technique limits examination quality. The lungs are grossly clear. Catheter tubing coils in the inferior left hemithorax region. The heart is upper limit of normal in size. No displaced fractures. IMPRESSION: No acute intrathoracic process suspected.
[2020-11-10] MEDS ORDERED: GLUCAGON 1 MG/VIAL IM PRN (16:00)
[2020-11-10] MEDS ORDERED: D50W 25 GM/50 ML SYRINGE IV PRN (16:00)
[2020-11-10] MEDS: ACETAMINOPHEN 500 MG TAB PO PRN ×2 (17:15→22:00)
[2020-11-10] MEDS ORDERED: ACETAMINOPHEN 500 MG TAB ONE ×2 (17:40→22:02)
[2020-11-10 18:18] LABS: Urine Appearance CLEAR; Urine Bilirubin NEGATIVE (NEG); Urine Blood NEGATIVE (NEG); Urine Color YELLOW; Urine Glucose 1+ (NEG); Urine Protein NEGATIVE (NEG); Urine Urobilinogen 0.2 mg/dL (0.2-1.0); Urine pH 7.5 (5.0-7.0)
[2020-11-10 19:04] LABS: Urine Microscopic Reflex NO UMIC
--- NOTE | 2020-11-10 19:16 | RAD REPORT ---
EXAM DESCRIPTION: Head Brain Wo Cont CLINICAL HISTORY: 80 years Female CONFUSED COMPARISON: None. TECHNIQUE: Contiguous axial CT images obtained through the brain without IV contrast. This exam was performed according to our department optimization program which includes automated exp osure control, adjustment of the mA and/or kv according to patient size and/or use of iterative recon struction technique. FINDINGS: The ventricles and sulci are mildly prominent. No mass lesions. No acute hemorrhage. Minimal microvascular ischemic changes. Atherosclerotic calcifications. 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 Basal ganglia calcifications. No fluid or significant mucosal thickening in the visualized paranasal sinuses. No depressed calvarial fractures. IMPRESSION: No acute intracranial abnormality is identified. If there is clinical concern for the possibility of acute ischemic change, MRI could be obtained to better evaluate. Electronically signed by: Nael Easton MD 11/09/2020 11:17 PM [employer] Due to temporary technical issues with the PACS/Fluency reporting system, reports are being signed by the in house radiologists without review as a courtesy to insure prompt reporting. The interpreting radiologist is fully responsible for the content of the report.
[2020-11-10] MEDS: carvediloL 6.25 MG TAB PO SCH (21:00)
[2020-11-10] MEDS: LOSARTAN POTASSIUM 50 MG TABLET PO SCH (21:40)
[2020-11-10] MEDS ORDERED: carvediloL 6.25 MG TAB ONE ×2 (21:41→22:02)
[2020-11-10] MEDS: INSULIN GLARGINE 100 UNITS/ML SQ SCH (22:05)
[2020-11-10] MEDS ORDERED: INSULIN GLARGINE 100 UNITS/ML SQ ONE (22:10)
[2020-11-11] MEDS ORDERED: NA CHLORIDE 0.9% 1,000 ML ONE (00:19)
[2020-11-11] MEDS: NA CHLORIDE 0.9% 1,000 ML IV SCH (04:51)
[2020-11-11] MEDS: THYROID 30 MG TAB PO SCH (06:00)
[2020-11-11] MEDS: PANTOPRAZOLE 40MG TABLET PO SCH (06:30)
[2020-11-11] MEDS: INSULIN -REGULAR HUMAN 50 UNIT/0.5 ML ML SQ SCH ×4 (07:30→20:05)
[2020-11-11 08:16] LABS: Absolute Lymphocytes (CBC) 1.1 K/uL (0.7-4.9); Hematocrit 42.8 % (36.0-45.0); Lymphocytes % 17.8 % (15.3-44.8); MPV 9.7 fL (7.6-11.3); RBC Red Blood Cell Count 5.51 M/uL (3.86-4.86)
[2020-11-11] MEDS ORDERED: HOME MED 1 EA UNK (Omeprazole [Omeprazole] 20 MG Capsule.Dr) PO SCH (09:00)
[2020-11-11] MEDS: ENOXAPARIN 30 MG/0.3 ML SQ SCH (09:00)
[2020-11-11] MEDS: LOSARTAN POTASSIUM 50 MG TABLET PO SCH ×2 (09:00→20:05)
[2020-11-11] MEDS: carvediloL 6.25 MG TAB PO SCH (09:00)
[2020-11-11] MEDS: ESCITALOPRAM 20 MG TAB PO SCH (09:00)
[2020-11-11 09:45] LABS: Potassium 3.7 mmol/L (3.5-5.1)
[2020-11-11 10:03] LABS: Albumin 3.1 g/dL (3.4-5.0); Bilirubin Total 0.3 mg/dL (0.2-1.0); Magnesium 1.8 mg/dL (1.8-2.4)
[2020-11-11] MEDS ORDERED: PANTOPRAZOLE 40MG TABLET PO ONE (10:32)
[2020-11-11] MEDS ORDERED: carvediloL 6.25 MG TAB ONE (10:32)
[2020-11-11] MEDS ORDERED: ENOXAPARIN 30 MG/0.3 ML SQ ONE (10:33)
[2020-11-11] MEDS ORDERED: cloNIDine HCL 0.1 MG TAB PO ONE (12:39)
[2020-11-11] MEDS ORDERED: MAGNESIUM SULFATE 1 gm IVPB 1 GM/100 ML BAG IV ONE ×2 (13:00→13:35)
[2020-11-11] MEDS ORDERED: POTASSIUM CL SA 10 MEQ TAB PO ONE ×2 (13:00→13:35)
[2020-11-11] MEDS ORDERED: cloNIDine HCL 0.1 MG TAB ONE (13:35)
[2020-11-11] MEDS: cloNIDine HCL 0.1 MG TAB PO SCH ×2 (13:42→20:05)
[2020-11-11] MEDS: carvediloL 12.5 MG TAB PO SCH (17:50)
[2020-11-11] MEDS ORDERED: INSULIN -REGULAR HUMAN 50 UNIT/0.5 ML ML ONE (18:09)
[2020-11-11] MEDS ORDERED: LOPERAMIDE HCL 2 MG CAPSULE PO PRN (18:52)
[2020-11-11] MEDS: ENSURE HIGH PROTEIN 237 ML CAN PO SCH (19:00)
[2020-11-11] MEDS: INSULIN GLARGINE 100 UNITS/ML SQ SCH (20:05)
[2020-11-11] MEDS: VANCOMYCIN 1.25 GM in NA CHLORIDE 0.9% 250 ML IVPB SCH (21:43)
[2020-11-12 04:58] LABS: Magnesium 2.3 mg/dL (1.8-2.4); Potassium 4.1 mmol/L (3.5-5.1)
[2020-11-12] MEDS: THYROID 30 MG TAB PO SCH (05:05)
[2020-11-12] MEDS: carvediloL 12.5 MG TAB PO SCH ×2 (05:05→17:00)
[2020-11-12] MEDS: PANTOPRAZOLE 40MG TABLET PO SCH (05:05)
[2020-11-12] MEDS: ENSURE HIGH PROTEIN 237 ML CAN PO SCH ×2 (05:06→19:00)
[2020-11-12] MEDS: INSULIN -REGULAR HUMAN 50 UNIT/0.5 ML ML SQ SCH ×4 (07:30→21:06)
[2020-11-12] MEDS: cloNIDine HCL 0.1 MG TAB PO SCH ×3 (09:00→21:15)
--- NOTE | 2020-11-12 09:53 | P.PN ---
Subjective Date of Service: 11/11/20 Subjective: No new changes, No C/O voiced, Improving Patient is having diarrhea a which is really her only complaint. He wants to get up stairs and we will try to get a PICC line for IV antibiotic therapy at discharge. Review of Systems 10-point ROS is otherwise unremarkable Physical Examination - Vital Signs Temperature: 97.5 F Blood Pressure: 166/74 Pulse: 65 Respirations: 18 Pulse Ox (%): 97 - Physical Exam General: Alert, In no apparent distress, Oriented x3 Respiratory: Clear to auscultation bilaterally, Normal air movement Cardiovascular: Regular rate/rhythm, Normal S1 S2, No murmurs Gastrointestinal: Normal bowel sounds, Soft and benign, Non-distended, No tenderness Musculoskeletal: No clubbing, No swelling, No tenderness Neurological: Sensation intact, Cranial nerves 3-12 intact - Studies Medications List Reviewed: Yes Assessment & Plan - Problems (Diagnosis) (1) Bacteremia due to Staphylococcus epidermidis Current Visit: Yes Status: Acute (2) AMS (altered mental status) Current Visit: No Status: Acute (3) Metastatic lung cancer (metastasis from lung to other site) Current Visit: No Status: Acute (4) Pleural effusion Current Visit: No Status: Acute - Plan Plan: 1. Arrange for PICC line placement 2. Imodium for diarrhea 3. May do was stool studies if it continues 4. Arrange for IV vancomycin at discharge 5. Continue using PleurX catheter 6. GI and DVT prophylaxis - Advance Directives Does patient have a Living Will: No Does patient have a Durable POA for Healthcare: No
[2020-11-12] MEDS: ENOXAPARIN 30 MG/0.3 ML SQ SCH (09:57)
[2020-11-12] MEDS: LOSARTAN POTASSIUM 50 MG TABLET PO SCH ×2 (09:57→21:15)
[2020-11-12] MEDS: ESCITALOPRAM 20 MG TAB PO SCH (09:57)
[2020-11-12] MEDS ORDERED: D50W 25 GM/50 ML VIAL IV PRN (14:29)
--- NOTE | 2020-11-12 16:20 | RAD REPORT ---
EXAM DESCRIPTION: RAD - Chest Single View - 11/12/2020 3:56 pm CLINICAL HISTORY: Device placement PICC line placement IMPRESSION: PICC line is coiled probably within the left brachiocephalic vein. The tip points cran ially near the junction of the left subclavian vein/brachiocephalic vein. The line should be retracted approximately 12 centimeters and then readvanced. A chest x-ray should t hen be obtained
[2020-11-12] MEDS: ACETAMINOPHEN 500 MG TAB PO PRN ×2 (16:59→21:14)
[2020-11-12] MEDS: INSULIN GLARGINE 100 UNITS/ML SQ SCH (21:07)
[2020-11-13] MEDS: THYROID 30 MG TAB PO SCH (05:46)
[2020-11-13] MEDS: PANTOPRAZOLE 40MG TABLET PO SCH (05:47)
[2020-11-13] MEDS: carvediloL 12.5 MG TAB PO SCH (06:00)
[2020-11-13] MEDS: INSULIN -REGULAR HUMAN 50 UNIT/0.5 ML ML SQ SCH ×3 (07:30→16:30)
[2020-11-13] MEDS: ESCITALOPRAM 20 MG TAB PO SCH (09:30)
[2020-11-13] MEDS: cloNIDine HCL 0.1 MG TAB PO SCH ×2 (09:30→14:00)
[2020-11-13] MEDS: ENOXAPARIN 30 MG/0.3 ML SQ SCH (09:30)
[2020-11-13] MEDS: LOSARTAN POTASSIUM 50 MG TABLET PO SCH (09:30)
[2020-11-13] MEDS: ENSURE HIGH PROTEIN 237 ML CAN PO SCH (09:31)
--- NOTE | 2020-11-13 09:49 | P.PN ---
Subjective Date of Service: 11/12/20 Patient clinically feeling better. Arranging for antibiotic therapy. Once this is done plan to discharge home. Review of Systems 10-point ROS is otherwise unremarkable Physical Examination - Vital Signs Temperature: 98.1 F Blood Pressure: 165/71 Pulse: 66 Respirations: 16 Pulse Ox (%): 95 - Physical Exam General: Alert, In no apparent distress, Oriented x3 Respiratory: Diminished, Expiratory wheezes Cardiovascular: Regular rate/rhythm, Normal S1 S2, No murmurs Gastrointestinal: Normal bowel sounds, Soft and benign, Non-distended, No tenderness Musculoskeletal: No clubbing, No swelling, No tenderness Neurological: Sensation intact, Cranial nerves 3-12 intact - Studies Medications List Reviewed: Yes Assessment & Plan - Problems (Diagnosis) (1) Bacteremia due to Staphylococcus epidermidis Current Visit: Yes Status: Acute (2) AMS (altered mental status) Current Visit: No Status: Acute (3) Metastatic lung cancer (metastasis from lung to other site) Current Visit: No Status: Acute (4) Pleural effusion Current Visit: No Status: Acute - Plan Plan: 1. Arrange for PICC line placement; once this is done discharge home on IV vancomycin for 10-14 days. 2. Imodium for diarrhea 3. Stool studies are negative 4. Arrange for IV vancomycin at discharge 5. Continue using PleurX catheter 6. GI and DVT prophylaxis - Advance Directives Does patient have a Living Will: No Does patient have a Durable POA for Healthcare: No
[2020-11-13 11:19] VITALS: O2SAT 95
[2020-11-13] MEDS: VANCOMYCIN 1.25 GM in NA CHLORIDE 0.9% 250 ML IVPB SCH (11:19)
[2020-11-13 11:32] LABS: C.diff Antigen/Toxin Ag pos : Tox neg (NEG : NEG)
[2020-11-13] MEDS ORDERED: ALPRAZOLAM 0.5 MG TABLET PO ONE (12:02)
[2020-11-13] MEDS ORDERED: LIDOCAINE 1% 20 ML MDV ONE (12:53)
[2020-11-13 13:07] VITALS: BP 149/62; TEMP 97
--- NOTE | 2020-11-13 14:12 | RAD REPORT ---
EXAM DESCRIPTION: RAD - Chest Single View - 11/13/2020 1:55 pm CLINICAL HISTORY: central line placement COMPARISON: November 12 TECHNIQUE: AP portable chest image was obtained 11/13/2020 1:55 pm . FINDINGS: Portable exam obtained following placement of a left subclavian central line. Tip is in th e mid SVC. No abnormal bend or kink the tubing. No pneumothorax or other post line placement complication. Heart size is normal. IMPRESSION: Left subclavian central line placement with tip in the mid SVC. No pneumothorax.
--- NOTE | 2020-11-13 16:10 | P.OP ---
Preoperative diagnosis: Need for Gas Maker Antibiotics Postoperative diagnosis: Need for Gas Maker Antibiotics Primary procedure: Placement of LEFT Subclavian Central Venous Catheter Anesthesia: Local 1% lidocaine used Estimated blood loss: <5cc Specimen: None Findings: non-pulsatile red blood returned Complications: None Implants: Triple lumen catheter Transferred to: Other (room) Condition: Good
--- NOTE | 2020-11-13 16:55 | CON ---
Date of Consultation: 11/13/2020 Brief History Of Present Illness: The patient is an 80-year-old female, known to me with a past medical history of metastatic lung cancer, diabetes, hypertension, GERD, status post placement of a left thoracic PleurX catheter for malignant pleural effusion over a week ago, who has been feeli ng weak as of late, fatigued and came to the emergency room with the above-stated complaints. She massey s been having some symptomatic improvement with shortness of breath; however, she continued to be con fused and did not appear to be getting improved with respect to her confusion. As such, her brought her to the hospital with the above-stated complaints. Workup revealed she in fact had eviden ce of sepsis with bacterial infection and resistant bacteria. As such, I was consulted for placement of a central venous catheter as a PICC line was unsuccessful on multiple attempts and the patient ne eded long-term IV antibiotics per the recommendations. Past Medical History: Breast cancer, hypertension, dyslipidemia, osteoarthritis, lung cancer, hypoth yroidism. Past Surgical History: Includes bilateral mastectomy, abdominoplasty, breast reductions prior, appen dectomy, partial hysterectomy, placement of a left thoracic PleurX catheter with chest tubes in place . Social History: The patient is retired. Lives at home with her . She has a positive smoking history. She denies alcohol or recreational drug use. Review of Systems: Ten-point review of systems other than HPI, denies. Allergies: TO IODINE. Home Medications: Include Arimidex, Catapres, Lexapro, Lasix, hyoscyamine, Tresiba, Coreg, Omnicef, dicyclomine, insulin, losartan, omeprazole, and [place] Thyroid. Physical Examination: General: At the time of my examination, the patient is awake and alert, but has a low-grade disorien tation. Psychiatric: She is conversive, but low-grade confusion remains. HEENT: She is normocephalic. Her mucous membranes are moist at this point. Respiratory: Pleur-evac catheter in left wall is functioning well. Her air movement is good. Cardiovascular: Regular rate and rhythm. Abdomen: Soft. Extremities: No clubbing, cyanosis, or edema. Skin: Warm and dry. Laboratory Data: She had a laboratory exam, which revealed a sodium of 138, potassium 4.1, chloride 109, carbon dioxide 25, BUN 20, creatinine 1.2, glucose is 178, magnesium was 2.3. Her C diff toxin showed antigen positive, toxin negative. Her blood culture showed gram-positive cocci in clusters. Her urine culture showed no growth. Assessment And Plan: This is an 80-year-old female, who is in need of long-term IV antibiotics and a s such I have explained the risks, benefits, and alternatives of placement of a non-tunneled central venous catheter including, but not limited to bleeding, infection, damage to surrounding structures, need for further operation and procedures, pneumothorax. I have explained that I will go on the left side of the patient's either subclavian or internal jugular vein because there was already a chest t ube in place there and that would minimize potential postprocedural complication should they occur. The patient and her agreed to proceed as indicated. Thank you for this interesting consult. RISHI/KIERRA Voice ID: [id number] Report ID: [id number]
[2020-11-13] MEDS ORDERED: VANCOMYCIN ORAL SOLN 250 MG/5 ML OSYR PO SCH (17:00)
--- NOTE | 2020-11-13 17:02 | OP ---
Date of Procedure: 11/13/2020 Surgeon: Mega Zamorano MD, Preoperative Diagnosis: Need for long-term IV antibiotics. Postoperative Diagnosis: Need for long-term IV antibiotics. Procedure Performed: Placement of left subclavian central venous catheter using a microintroducer se t. Anesthesia: 1% lidocaine used without epinephrine. Estimated Blood Loss: Less than 5 mL. Specimen: None. Findings: Dark nonpulsatile blood return. Complications: None. Implants: Triple-lumen central venous catheter. Disposition: The patient remained in room in good condition throughout the procedure. Procedure In Detail: After informed consent was obtained, the patient was prepped and draped in the usual sterile fashion. After adequate anesthesia was achieved, the patient was placed in steep Trend elenburg position and using a microintroducer needle, I cannulated the left subclavian vein on the fi rst attempt without evidence of complication. I withdrew dark red, nonpulsatile blood returned. The microwire was advanced at this point. Needle was removed. The wire remained in place as I made a s mall katty incision in the skin overlying the introduction site and I placed a microintroducer sheath over the wire using Seldinger technique. I then removed the wire. Microwire out was called and the introducer inner cannula was removed. Dark red, nonpulsatile blood was returned once again and a sta ndard wire was advanced at this point. I then removed the introducer sheath and sequentially dilated up the tract and introduced the catheter over the wire using Seldinger technique. Ultimately when t he catheter was in place, the wire was removed. This was a standard wire and the second time wire wa s removed. At this point, dark red and nonpulsatile blood was returned from all ports. All ports we re then flushed with saline at this point and easily flushed with saline and withdrew blood. At this point, the introduction site was then cleansed once again and the catheter was secured using the att ached nylon suture and a sterile dressing placed over the top with an antibiotic disk. The patient t olerated the procedure well without evidence of complication, remained in the room throughout the pro cedure in good condition. All counts were correct at the end of the case. TK/MODL Voice ID: [id number] Report ID: [id number]
--- NOTE | 2020-11-13 17:17 | P.DS ---
Discharge Date: 11/13/20 Primary Care Provider: Dr. monge, Dr. hare Disposition: DC HOME/HOME HEALTH CARE Discharge Condition: GOOD Reason for Admission: AMS - Problems (1) Bacteremia due to Staphylococcus epidermidis Status: Acute (2) AMS (altered mental status) Status: Acute Qualifiers: Altered mental status type: somnolence Qualified Code(s): R40.0 - Somnolence (3) Metastatic lung cancer (metastasis from lung to other site) Status: Chronic Qualifiers: Laterality: unspecified laterality Qualified Code(s): C34.90 - Malignant neoplasm of unspecified part of unspecified bronchus or lung (4) Pleural effusion Status: Acute Brief History of Present Illness: Patient is an 80-year-old female who is admitted to the hospital for altered mentation. Patient was weak. They felt she may have sepsis but blood gas and levels were never drawn. Procalcitonin levels were never done as well. Patient has been having home health come to the house to remove pleural effusions. Patient will need to start having physical therapy as well. Hospital Course: Patient had done well during hospital stay. Family is wanting to go home. At this time, patient is stable for discharge home with outpatient follow up.We went ahead and has central line placed. Patient will receive antibiotics through the central line for a total of 10 more days. Also notify home health upon discharge so they can resume removal of pleural fluid. Vital Signs/Physical Exam: Temp Pulse Resp BP Pulse Ox 97 F 61 16 149/62 H 96 11/13/20 12:00 11/13/20 12:00 11/13/20 12:00 11/13/20 12:00 11/13/20 12:00 General: Alert, In no apparent distress, Oriented x3 Laboratory Data at Discharge: WBC 6.3 K/uL (4.3-10.9) 11/11/20 08:01 Hgb 13.8 g/dL (12.0-15.0) 11/11/20 08:01 Hct 42.8 % (36.0-45.0) 11/11/20 08:01 Plt Count 129 K/uL (152-406) L 11/11/20 08:01 PT 12.8 SECONDS (9.5-12.5) H 11/09/20 21:20 INR 1.09 11/09/20 21:20 Sodium 138 mmol/L (136-145) 11/12/20 04:31 Potassium 4.1 mmol/L (3.5-5.1) 11/12/20 04:31 BUN 20 mg/dL (7-18) H 11/12/20 04:31 Creatinine 1.27 mg/dL (0.55-1.3) 11/12/20 04:31 Glucose 178 mg/dL (74-106) H 11/12/20 04:31 Magnesium 2.3 mg/dL (1.8-2.4) D 11/12/20 04:31 Total Bilirubin 0.3 mg/dL (0.2-1.0) 11/11/20 08:01 AST 21 U/L (15-37) 11/11/20 08:01 ALT 14 U/L (12-78) 11/11/20 08:01 Alkaline Phosphatase 74 U/L (45-117) 11/11/20 08:01 Home Medications: Anastrozole [Arimidex*] 1 mg PO DAILY 03/05/16 Clonidine HCl [Catapres] 0.1 mg PO TID 10/31/20 Escitalopram [Lexapro*] 20 mg PO DAILY 10/31/20 Hyoseyamin 0.125 mg PO Q4H PRN 10/31/20 Insulin Degludec [Tresiba Flextouch U-100] 36 units SQ DAILY 10/31/20 carvediloL [Coreg*] 6.25 mg PO BID 10/31/20 Dicyclomine HCl 20 mg PO TID 11/05/20 Insulin Aspart [Novolog Flexpen] 9 unit SQ TID 11/05/20 Losartan Potassium 50 mg PO BID 11/05/20 Omeprazole 20 mg PO DAILY 11/05/20 Thyroid,Pork [[place] Thyroid] 15 mg PO DAILY 11/05/20 Ensure High Protein 237 ml PO Q12H #60 can 11/13/20 Acidophilus/Bulgaricus [Lactinex Tablet Chewable] 1 each PO TID #90 tab.chew 11/15/20 Diphenox/Atropine [Lomotil] 1 tab PO BIDP PRN #30 tab 11/15/20 New Medications: Ensure High Protein 237 ml PO Q12H #60 can Patient Discharge Instructions: OK TO DC IV AND DC HOME. FOLLOW-UP WITH PRIMARY CARE PROVIDER IN 1-2 WEEKS. FOLLOW-UP WITH ONCOLOGY IN 1-2 WEEKS. PLEASE NOTIFY HOME HEALTH AT THE TIME OF DISCHARGE. DC CENTRAL LINE IN 2 WEEKS. RETURN TO THE ER IF SYMPTOMS WORSEN. CALL or TEXT DR. PINA AT [phone] IF ANY QUESTIONS REGARDING HOSPITAL STAY. PLEASE CALL THE FLOOR AT [phone] IF ANY MEDICATION OR NURSING QUESTIONS. Diet: AHA Activity: Fall precautions Followup: NONE,NONE [Primary Care Provider] - Time spent managing pt's care (in minutes): 35
== END 2020-11-13 17:09 | disposition home health service (06) | DRG 871 ==
LOC: ER 21:08 → ERHOLD 23:49 → 2ND 11-11 17:23
PROVIDERS: ADMIT Family Medicine; ATTEND Hospitalist
PROC: 05H633Z Insertion of Infusion Device into Left Subclavian Vein, Percutaneous Approach (ICD-10-PCS; principal; 2020-11-13)
DX: A41.1 Sepsis due to other specified staphylococcus (principal); G92 Toxic encephalopathy; J18.9 Pneumonia, unspecified organism; C78.00 Secondary malignant neoplasm of unspecified lung; N39.0 Urinary tract infection, site not specified; E11.9 Type 2 diabetes mellitus without complications; E78.5 Hyperlipidemia, unspecified; I10 Essential (primary) hypertension; K21.9 Gastro-esophageal reflux disease without esophagitis; Z66 Do not resuscitate; Z85.118 Personal history of other malignant neoplasm of bronchus and lung; Z90.13 Acquired absence of bilateral breasts and nipples; Z85.3 Personal history of malignant neoplasm of breast; Z90.711 Acquired absence of uterus with remaining cervical stump; Z90.49 Acquired absence of other specified parts of digestive tract; Z79.4 Long term (current) use of insulin; Z79.899 Other long term (current) drug therapy; Z20.822 Contact with and (suspected) exposure to COVID-19
CPT/HCPCS: 0240U; 36415; 36569; 70450; 71045; 80048; 80053; 80076; 80202; 80307; 80320; 80329; 81003; 81015; 82947; 83605; 83735; 83880; 84439; 84443; 84484; 85025; 85610; 87040; 87086; 87088; 87205; 87324; 87449; 87493; 93005; 96360; 96361; 99285; J1644; J1650; J1815; J3370; J3475; J7030; J7050

== ENCOUNTER 2020-11-14 17:50 | Observation (INO) | payer MEDICARE, SELFPAY ==
--- OUTSIDE RECORDS SUMMARY | 2020-11-14 17:54 | XMS REPORT | Continuity of Care Document ---
:1940 Author Organization [facility] t Address [address] [place] [address] Care Team Providers Name Role Phone Yanick [...] Expiration Date Sour ce Number UHC MEDICAREUHC [id number] 2020 [place] MEDICARE 00:00:00 Christian HMO/[id number] -Present MO Problems Condition Condition Condition Status Onset Resolution Last Treating Co mments Source Name Details Category Date Date Treatment Clinician Date Syncope Syncope Disease Active 2019-11 [place] and and 11-13 [facility] collapse collapse 00:00: st 00 Syncope Syncope Disease Active 2019-11 [place] 11-13 Methodi 00:00: st 00 Lung mass Lung mass Disease Active 2019-11 Overview: [place] 0 Added Methodi 00:00: automatic st 00 ally from request for surgery [id number] Allergies, Adverse Reactions, Alerts Allergy Allergy Status Severity Reaction(s) Onset Inactive Treating Comm ents Source Name Type Date Date Clinician Iodine Propensi Active Rash 2019-11 [place] And ty to 11-13 Method[facility] Iodide adverse 00:00: st Containi reaction 00 ng s to Products drug Iodine Propensi Active Hives [place] ty to 05-18 [facility] adverse 00:00: st reaction 00 s to drug Social History Social Habit Start Date Stop Date Quantity Comments Source History [facility] Meth odist Alcohol Std Drinks History [facility] Meth odist Alcohol Binge Sex Assigned At [facility] ethodist Tobacco use and 2020-09-18 2020-09-18 Never used [facility] ethodist exposure 00:00:00 00:00:00 Alcohol intake 2020-09-18 2020-09-18 Lifetime [facility] thodist 00:00:00 00:00:00 non-drinker (finding) History SDOH 2020-08-30 2020-08-30 1 [place] Meth odist Alcohol Frequency 00:00:00 00:00:00 Smoking Status Start Date Stop Date Source Never smoker [place] Methodis t Medications Ordered Filled Start Stop Current Ordering Indication Dosage Frequency Signature Comments Components Source Medication Medication Date Date Medication? Clinician (SIG) Name Name hyoscyamine 2019-11 2020- No 1{tbl} Q.24001555 Take 1 [place] sulfate 11-19 [id number] tablet by Methodi 0.125 mg 10:27: 00:00 [...] mL) insulin pen dicyclomine 2019-11 Yes 20mg Q.97140252 Take 20 mg Bejarano (BENTYL) 20 - [id number] by mouth 3 [facility] mg tablet 10:27: [...] st tablet 00 clonIDINE 2020- No .1mg Q.99266773 Take 0.1 Bejarano (CATAPRES) 07-26 11-19 [id number] mg by M ethodi 0.1 MG 00:00: 00:[address] tablet 00 :00 (three) times a day. methscopola 2019- No 5mg QD Take 5 mg Bejarano mine 30 09-19 by mouth [facility] (PAMINE 00:00: 00:[address] FORTE) 5 MG 00 :00 tablet insulin 2019- Yes 8U Q.62825776 Inject 8 Bejarano ASPART 5-26 [id number] Units Method i (NovoLOG) 00:00: 3D under [...] hodist POC GLUCOSE 2020-09-18 13:09:00 Hendrix, Adalid uQe Bejarano Met hodist XR CHEST 1 VW [...] Hoffman Christian POC GLUCOSE 2020-09-16 17:59:00 Hendrix, Adaliddaniel Bejarano Met hodist XR CHEST 1 VW PORTABLE 2020-09-16 16:27:11 Flory Hoffman [facility] SURGICAL PATHOLOGY 2020-09-16 16:11:00 Hendrix, Adalid Bejarano Christian REQUEST BAL CELL COUNT AND 2020-09-16 14:46:00 HendrixAdalid farah Christian DIFFERENTIAL CYTOLOGY 2020-09-16 13:20:00 HendrixAdalid farah Met hodist (NON-GYNECOLOGICAL) REQUEST ID AN ELECTIVE 2020-09-16 13:03:19 Jaskaran Mloina Meth odist ENDOTRACHEAL AIRWAY CYTOLOGY 2020-09-16 10:45:00 [...] Christian HEMOGLOBIN A1C 2020-09-14 05:30:00 Clark Castro [place] Christian HC COMPLETE BLD COUNT 2020-09-14 05:30:00 Aubrey, Anali Alejandre Que [place] moni Christian W/AUTO DIFF BLOOD CULTURE, AEROBIC & 2020-09-13 20:40:00 Kendra Pena Christian ANAEROBIC [place] POC GLUCOSE 2020-09-13 19:28:00 Burgos, Anali Grey Bejarano Christian TROPONIN 2020-09-13 17:00:00 Darci [...] odist Alex R. MAGNESIUM LEVEL 2020-09-13 08:18:00 [facility] [place] Meth odist Alex R. ECG 12-LEAD 2020-09-13 08:14:16 Ahmet Bejarano Meth odist Alex R. ECG ED PRELIMINARY 2020-09-13 08:13:29 Crescenciocharity [facility] ethodist INTERPRETATION Alex Ryan [id number] 2020-09-12 00:00:00 Provider, Shanika Joya MRI BRAIN [...] VACCINES (#1)] Future Scheduled 1956 COVID-19 VACCINE (1 of [place] [facility] Test 00:00:00 2) [code = COVID-19 VACCINE (1 of 2)] Future Scheduled 1950-01-04 DIABETES: RETINAL EYE [place] [facility] Test 00:00:00 EXAM [code = DIABETES: RETINAL EYE EXAM] Future Scheduled 1950-01-04 DIABETIC FOOT EXAM [place] [facility] Test 00:00:00 [code = DIABETIC FOOT EXAM] Encounters Start End Encounter Admission Attending Care Care Encounter Source Date/Time Date/Time Type Type Clinicians Facility Department ID 2020-10-18 2020-10-18 [facility] [id number] 20 16:20:54 16:53:41 Visit Thomas Hayward [id number] Lillian [id number] [id number] 2020-09-13 2020-09-19 Inpatient HENDRIX, [facility] [id number] 54 [place] 00:00:00 00:00:00 ADALID [address] 2020-08-30 2020-08-30 Outpatient SCHMIDT, [facility] [id number] 456 [place] 00:00:00 00:00:00 EDWARD [address] 2020-08-30 2020-08-30 Outpatient SCHMIDT, [facility] [id number] 638 [place] 00:00:00 00:00:00 EDWARD [address] 2020-08-30 2020-08-30 Outpatient SCHMIDT, [facility] [id number] 638 [place] 00:00:00 00:00:00 EDWARD [address] 2020-08-30 2020-08-30 Outpatient SCHMIDT, [facility] [id number] 638 [place] 00:00:00 00:00:00 EDWARD [address] 2016-06-15 2016-06-15 Emergency [facility] [id number] 11 [place] 00:00:00 00:00:[address] 2016-06-09 2016-06-11 Outpatient POPPY PRADO [facility] [id number] [place] 00:00:00 00:00:[address] 2015-12-31 2015-12-31 Outpatient ARIEL [facility] [id number] 224 [place] 00:00:00 00:00:00 BRETT [address] 2015-12-30 2015-12-30 Outpatient ARIEL [facility] [id number] 196 [place] 00:00:00 00:00:00 BRETT [address] Results Test Description Test Time Test Comments Results Result Comments Source Surgical pathology request 2020-10-07 16:51:20 Test Item Value Reference Range Interpretation Comme nts Case number (test code = [id number]) [id number] Surgical pathology report (test code See link below for PDF Sole Inker ort = 2255) Result status (test code = 1742535) This is Supplemental Report for [id number] JAIRO (test code = JAIRO) [facility] [id number] 09/16/2020Block B1 [facility] gjguebu5461-34-32 08:45:47 Test Item Value Reference Range Interpretation Comments POC glucose (test 174 mg/dL 65-99 H Candy Butcher N paulette: Shittu code = 88707-8) KeyaunmiZipmentskarlos Device ID: [id number] able: [facility] Notified computer networker Interpretation Abnormal (test code = 57350-6) [facility] gqvvxvem0295-94-21 08:05:46 Test Item Value Reference Range Interpretation Comments WBC (test code = 73187-8) 6.70 4.50- 11.00 k/uL RBC (test code = 91836-4) 4.61 m/uL 4.2-5.5 HGB (test code = 718-7) 12.0 g/dL 12-16 HCT (test code = 4544-3) 36.7 % 37-47 L MCV (test code = 787-2) 79.6 fL 82-100 L MCH (test code = 785-6) 26.0 pg 27-34 L MCHC (test code = 786-4) 32.7 g/dL 31-37 RDW - SD (test code = 79139-8) 37.4 fL 37-55 MPV (test code = 75027-7) 11.4 fL 8.8-13.2 Platelet count (test code = 207 150- 400 k/uL 89422-1) Nucleated RBC (test code = 0.00 /100 WBC 70275-7) Lab Interpretation (test code = Abnormal 20509-4) [place] MethodistBasic metabolic tovdx3623-29-10 07:59:07 Test Item Value Reference Range Interpretation Comments Sodium (test code = 2951-2) 140 135- 148 mEq/L Potassium (test code = 2823-3) 4.0 3.5- 5.0 mEq/L Chloride (test code = 2075-0) 104 98- 112 mEq/L CO2 (test code = 2027-9) 24 24- 31 mEq/L Anion gap (test code = 90753-8) 12@ANIO 7- 15 mEq/L BUN (test code = 3094-0) 12 mg/dL 8-23 Creatinine (test code = 2160-0) 1.29 mg/dL 0.5-0.9 H Glucose (test code = 2345-7) 148 mg/dL 65-99 H Calcium (test code = 83258-5) 8.7 mg/dL 8.8-10.2 L Lab Interpretation (test code = Abnormal 68487-3) [place] MethodistEstimated [id number] 07:59:07 Test Item Value Reference Range Interpretation Comments Estimated GFR (test 39 mL/min/1.73 m2 Jude Derrick bella Units code = 5488) InterpretationG 1 >=90 Claduia l or highG2 60-89 Mildly decrease dG3a 45-59 Mil dly to moderately decr njwklW4k 30-44 Moderately to s everely decreasedG4 15-29 Severe ly decreasedG5 <15 Kidney skye lureThe eGFR was calcul ated using the Chron ic Kidney Disease Epidemiology Collaboration ( CKD-EPI) equation. Interpretation is based on recommendati ons of the National Ki dney Foundation-Kidn ey Disease Outcome s Quality Initiat lona (NKF-KDOQI) pub lished in 2013. Lab Interpretation Abnormal (test code = 96386-7) [place] MethodistBlood culture, aerobic & klxzhtxvk1626-90-82 02:03:08 Test Item Value Reference Range Interpretation Comments Blood culture No growth Specimen isolate (test after 5 days InformationSpe cimen code = 600-7) of Source: BloodS pecimen incubation. Site: Left Fore arm [place] MethodistXR Chest 1 Vw Mkjzytrk6533-79-82 09:42:47Hm Interface, Radiology Results Incoming - 09/18/2020 [...] of cervicothoracic spine partially visualized.1D2RAD_PS02[place] MethodistCytology (non-gynecological) qmgevvd3763-24-09 20:12:25 Test Item Value Reference Range Interpretation Comments Case number (test code = [id number]) Cytology See link below for (non-gynecological) PDF Lab Report report (test code = 1178) Result status (test code This is Final Report = [id number]) for [id number] [place] MethodistMagnesium qhmow2212-54-94 08:07:08 Test Item Value Reference Range Interpretation Comments Magnesium (test code = 71853-5) 1.7 mg/dL 1.6-2.4 [place] MethodistPhosphorus idhnr0371-96-10 08:07:05 Test Item Value Reference Range Interpretation Comments Phosphorus (test code = 2777-1) 2.4 mg/dL 2.4-4.5 [place] MethodistCBC with platelet and quvffdnoqhvd1651-61-45 06:16:54 Test Item Value Reference Range Interpretation Comments WBC (test code = 29727-4) 8.54 4.50- 11.00 k/uL RBC (test code = 17021-9) 4.85 m/uL 4.2-5.5 HGB (test code = 718-7) 12.4 g/dL 12-16 HCT (test code = 4544-3) 39.2 % 37-47 MCV (test code = 787-2) 80.8 fL 82-100 L MCH (test code = 785-6) 25.6 pg 27-34 L MCHC (test code = 786-4) 31.6 g/dL 31-37 RDW - SD (test code = 38.2 fL 37-55 20478-9) MPV (test code = 84808-3) 11.8 fL 8.8-13.2 Platelet count (test code 195 150- 400 k/uL = 17433-5) Nucleated RBC (test code 0.00 /100 WBC = 51490-3) Neutrophils (test code = 55.1 % 39-69 78489-9) Lymphocytes (test code = 29.2 % 25-45 05318-0) Monocytes (test code = 9.6 % 0-10 29874-3) Eosinophils (test code = 4.6 % 0-5 10301-1) Basophils (test code = 1.1 % 0-1 H 01753-3) Immature granulocytes 0.4 % 0-1 "Immat ure (test code = 03638-2) granul ocytes" (promyelocytes, myelocytes, metamyelocytes) Lab Interpretation (test Abnormal code = 25806-8) Darci JoyaUrine zmziwqc8646-16-05 00:54:02 Test Item Value Reference Range Interpretation Comments Urine culture Mixed danny Specimen isolate (test <=10-3 col/cc InformationSp ecimen code = 65218-6) Source: [facility]Spec[facility] and rbvsxtyseuhw8522-16-51 21:40:34 Test Item Value Reference Range Interpretation Comments BAL specimen source MAX BAL (test code = 02502-6) BAL cell count (test 0.040 m/mL Normal ranges: code = 85128-4) Nonsmokers: 0.007 - 0.363 Smokers: 0 - 1. 31 73% viability, many rbc's present BAL PAMS (test code = 3 % Normal ranges: 95569-0) Nonsmokers: 65 - 100 Smokers: 81 - 1 00 BAL PMNS (test code = 83 % Normal ranges: 9306-2) Nonsmokers: 0 - 3 Smok ers: 0 - 2 BAL eosinophils (test 10 % Normal ranges: code = 39969-5) Nonsmokers: 0 - 1 Smok ers: 0 - 1 BAL lymphs (test code = 4 % Norm al ranges: 09416-6) Nonsmokers: 0 - 10 Smo kers: 0 - 5 JAIRO (test code = JAIRO) BAL MAX [place] MethodistTransthoracic Echocardiogram Complete, (w Contrast, Strain and 3D if needed)2020-09-16 13:08:00Interface, Radiology Results In - 09/16/2020 1:09 PM [facility] Echocardiography Report [id number] [address] Pat.Name: FRANTZ WEATHERS Pat.ID: [id number].Date: 09/16/2020 Refer.MD: ANALI BURGOS MDExam Time: 9:19:00 AM Study Type:Routine Echo Height: 62in Weight: 148lb BSA: 1.68 m2 Age: 3 1940,80Y Sex: FEMALE BP: 120/56 HR: 73 bpm Sonogrphr: Aylin Rodriguez, [place], [facility] Pat. Stat.:Inpatient Room: [place] [address] Study Status:Final Echo Event ID:[id number] Order ID: [id number] Reason for Study:Syncope Procedures: 2D Echo, Colorflow [...] of 5 mmHg. MEASUREME NTS: 2DParasternal Long [place] AoAn 1.9 cm LVPWd 1 cm Ao [...] SVi 41 ml/m2 TV Pressure Gradient TV ApYfj964 cm/s TV PG 27 mmHg WALL MOTION:-------- RESTING WALL MOTION:Basal Inferoseptal wall is hypokinetic. Normal wall motion in allother carrington.Wall Index = 1.1Signed 09/16/2020 01:08 PMMarie Tapia BppvocazbJhfbyd6285-91-94 13:03:19 Jaskaran Molina MD 09/16/2020 1:05 PMAirway [...] Attempts at Approach: 1[facility] MethodistCT Chest Wo Gncldocq6496-78-42 09:34:07Hm Interface, Radiology Results Incoming - 09/16/2020 [...] susp icious for malignant adenopathy. 1D2RAD_PS02[place] MethodistAntibody bnivkwpavalybb9695-57-34 06:07:00 Test Item Value Reference Range Interpretation Comments Antibody ID (test code = 15055-9) POS, Anti-D [place] MethodistABO and Rh mpnohlbqjvyd2658-13-61 06:06:00 Test Item Value Reference Range Interpretation Comments ABO grouping (test code = 883-9) A Rh type (test code = 14816-1) NEG [place] MethodistB natriuretic nholhka5256-50-39 05:53:02 Test Item Value Reference Range Interpretation Comments BNP (test code = 63526-0) 56 pg/mL 0-100 [place] MethodistType and oecpcu3239-83-34 03:03:00 Test Item Value Reference Range Interpretation Comments ABO grouping (test code = 883-9) A Rh type (test code = 16347-9) NEG Antibody screen (gel) (test code = POS 890-4) [place] MethodistUrinalysis screen and microscopy, with reflex to culture 2020-09-15 22:06:01 Test Item Value Reference Range Interpretation Comments Specimen site (test code = Catheterized 5544238) Color, UA (test code = 5778-6) Yellow Appearance, UA (test code = Clear 5767-9) Specific gravity, UA (test code 1.017 1.001-1.035 = 5811-5) pH, UA (test code = 5803-2) 5.0 5.0-8.5 Protein, UA (test code = Negative Negative 62716-4) Glucose, UA (test code = Negative Negative 15321-9) Ketones, UA (test code = 2514-8) Negative Negative Bilirubin, UA (test code = Negative Negative 5770-3) Blood, UA (test code = 5794-3) Negative Negative Nitrite, UA (test code = 5802-4) Negative Negative Urobilinogen, UA (test code = <2.0 <2.0 89914-7) Leukocyte esterase, UA (test Small Negative A code = 5799-2) Epithelial cells, UA (test code 2 /HPF = 5787-7) WBC, UA (test code = 5821-4) 32 0- 4 /HPF H RBC, UA (test code = 73330-3) 3 0- 5 /HPF Bacteria, UA (test code = Few None seen 94522-3) Yeast, UA (test code = 96155-3) None seen Yeast with pseudohyphae, UA None seen (test code = 66653-9) Hyaline casts, UA (test code = 20 /LPF 5796-8) Lab Interpretation (test code = Abnormal 79204-4) Darci JoyaHemoglobin [id number] 11:41:57 Test Item Value Reference Range Interpretation Comments Hemoglobin A1C (test 9.1 % 4-5.6 H HbA1c c utoffs for code = 81408-1) diagnosing diabetes:4.0% - 5.6% = normal5.7% - 6.4% = increased risk for diabetes (prediabetes)9> =6.5% = wratuvqo4Itlc s for glycemic contro l (ADA 2016)< 7.0% Ta rget for non adults with ganesh betes. More or less stringent targe ts may be appropriate for individual tamar ents. <7.5% Target for Children and adolescents wit h type 1 diabetes. Lab Interpretation (test Abnormal code = 39520-0) Darci JoyaCOVID-19 qualitative [id number] 20:21:50 Test Item Value Reference Range Interpretation Comments Interpretation (test Negative results do code = 0242296) not preclude 2019-nCoV infection and should not be used as the sole basis for treatment or other patient management decisions. Negative results must be combined with clinical observations, patient history, and epidemiological information. COVID-19 qualitative Not-Detected Not-Detected PCR result (test code = 54404-1) COVID-19 qualitative See link below for C ase Number: PCR (test code = PDF Lab Report [id number]) Darci Mejía 12 saxf5897-23-86 19:27:22 Test Item Value Reference Range Interpretation Comments Ventricular rate (test 93 code = 253) Atrial rate (test code 93 = 255) ID interval (test code 128 = 266) QRSD [...] are now present-QRS axis shifted left- Darci DaleTqzapfacjCxxkoeef7243-23-68 18:10:56 Test Item Value Reference Range Interpretation Comments Troponin (test code 0.012 ng/mL 0-0.04 In patie nts suspected = 69701-0) of having a rochelle cardial infarction, nelly [...] decreased by le ss than 0.020 ng/mL [facility] duplex venous lower vxiduzftj8146-67-95 15:09:00Interface, Radiology Results In - 09/13/2020 3:09 PM [facility] Vascular Ultrasound Laboratory Lower Extremity Venous Xazpcj[address] [address] Pat.Name: FRANTZ WEATHERS Pat.ID: [id number] .Date: 09/13/2020 Refer.MD: CAS PATE MD, ALEX FRITZ MDExraven Time: 10:32:00 AM Study Type:LE Venous Height: 62in Weight: 148lb BSA: 1.68 m2 Age: 3 1940,80Y Sex: FEMALE Sonogrphr: Freddie Wright, TITO, Tong Gutierrez, RDMS, RVTPat. Stat.:Inpatient Room: ED19 Tape Vol: CM, CPT - 4: 44857 Echo Event ID:[id number] Order ID: [id number] Reason for Study:Leg swelling or pain, DVT [...] all veins visualized. FINDINGS: Signed 09/13/2020 03:09 PMSantiago Samson MD, RPVI Darci JoyaVT Lung Perfusion Axjqsbd7597-59-48 13:53:35Hm Interface, Radiology Results 09/13/2020 1:56 PM CSTPROCEDURE: VT LUNG PERFUSION IMAGINGINDICATION: PE suspected low pretest [...] refer to the CT study report for details.[facility]-[id number] ChristianPartial thromboplastin time, activated 2020-09-13 09:09:09 Test Item Value Reference Range Interpretation Comments PTT (test code = 24.1 23.0- 36.0 [place] [address]-8) unfractionated heparin is61.0-112.0 se conds which corresponds to Anti-Xa0.3-0.7 U/ml. Darci JoyaProthrombin time with FUB4428-70-65 09:08:33 Test Item Value Reference Range Interpretation Comments Prothrombin time (test 14.5 11.5- 14.5 sec code = 5902-2) INR (test code = 1.1 The Interna tional 76697-2) Normalized Rati o (INR) is a therapeutic m onitoring tool for patien ts who are stable on oral anticoagulant t herapy. An INR of 2.0-3.0 is suggested for d eep vein thrombosis/pulm onary embolism. [facility] ED Preliminary Interpretation - Not an Ckwgc2677-61-19 08:13:29 Test Item Value Reference Range Interpretation Comments JAIRO (test code = JAIRO) Alex Fritz MD 09/14/2020 6:44 [facility] ED Preliminary Interpretation - Not an OrderPerformed by: Alex Fritz MDAuthorized by: Alex Fritz MD ECG reviewed by ED Physician in the absence of a pegger: yes Interpretation: Interpretation: abnormal Rate: ECG rate: 88 ECG rate assessment: normal Rhythm: Rhythm: sinus rhythm Ectopy: Ectopy: PVCs PVCs: FrequentQRS: QRS axis: Normal QRS intervals: NormalConduction: Conduction: normal ST segments: ST segments: NormalT waves: T waves: normal Comments: Prolonged QT Lab Interpretation Abnormal (test code = 39005-6) [place] MethodistCT Chest External Tidzx1028-64-03 10:45:49This exam was not acquired at a Christian facility and has not been interpreted by a Christian Provider. The exam was imported into our imaging system.[place] MethodistNM Bone Scan External Aamhg4101-91-95 10:45:27This exam was not acquired at a Christian facility and has not been interpreted by a Christian Provider. The exam was imported into our imaging system.[place] MethodistPET/CT Whole Body External Uedoz3926-62-60 10:45:06This exam was not acquired at a Christian facility and has not been interpreted by a Christian Provider. The exam was imported into our imaging system.[place] Christian
--- OUTSIDE RECORDS SUMMARY | 2020-11-14 17:54 | XMS REPORT | Clinical Summary ---
:1940 Author Organization [facility] Address [address] [place] [address] Care Team Providers Name Role Phone Yanick [...] Added automatically from request for francis collado [id number] Encounters Date Type Specialty Care Team Description [...] Anesthesia Event Cardiothoracic Jaskaran Molina, Surgery 09/13/2020 [facility] General Internal Boyareddigari, Syncope a nd [...] Cardiothoracic Juan C, Stephanie Lentz MA 08/30/2020 [facility] Radiology Serafin Schmidt MD 08/30/2020 [facility] Radiology Serafin Schmidt MD 08/30/2020 [facility] Radiology Serafin Schmidt MD 08/30/2020 Office Visit Cardiothoracic Serafin Schmidt Lung mass (Pr imary Dx); Surgery MD Judith Pre-op testing 08/30/2020 Orders Only Cardiothoracic Provider, Stephanie Voss MD 08/30/2020 Travel 08/27/2020 Travel after 11/14/2019 Surgical History Surgery Date Site/Laterality Comments MASTECTOMY BRONCHOSCOPY, USING 09/16/2020 Chest/Left Procedure: F LEXIBLE ELECTROMAGNETIC NAVIGATION [facility] HOSCOPY, ELECTROMAGNETIC NAVIGATIONAL BRO NCHOSCOPY, BIOPSY OF LEFT U PPER LOBE MASS; Surgeon: Serafin Schmidt MD; Locat ion: [facility] OR; Serv ice: Thoracic; Later ality: Left; US, ENDOBRONCHIAL 09/16/2020 N/A Procedure: EBU S; Surgeon: Serafin Schmidt MD; Location: [facility] OR; Service: Thoraci c; Laterality: N/A; THORACENTESIS 09/16/2020 Chest/N/A Procedure: LEFT THORACENTESIS; Surgeon: Serafin Schmidt MD; Location: [facility] OR; Service: Thoraci c; Laterality: [...] Comments Blood Pressure 144/60 09/19/2020 7:23 AM [employer]IDE Pulse 53 09/19/2020 7:23 AM [employer] COUN[employer]ING AIDE Temperature 36.8 C (98.3 F) 09/19/2020 7:23 AM [employer] COUN[employer] AIDE Respiratory Rate 18 09/19/2020 7:23 AM [employer] COUNSELING AIDE Oxygen Saturation 95% 09/19/2020 7:23 AM [employer] COUNSELING AIDE Inhaled Oxygen Concentration - - Weight 67.1 kg (148 lb) 09/13/2020 8:05 AM [employer] COUNSELING AIDE Height 157.5 cm (5' 2") 09/13/2020 8:05 AM [employer] AIDE Body Mass Index 27.07 09/13/2020 8:05 AM [employer] COUN[employer] AIDE Plan of Treatment Health Maintenance Due Date Last Done Comments DIABETES: RETINAL EYE EXAM 01/04/1950 DIABETIC FOOT EXAM 01/04/1950 COVID-19 VACCINE (1 of 2) 1956 SHINGLES VACCINES (#1) 01/04/1990 65+ PNEUMOCOCCAL VACCINE (1 of 1 - PPSV23) 01/04/2005 INFLUENZA VACCINE 06/01/2020 09/01/2019 Procedures Procedure Name Priority Date/Time Associated Comments Diagnosis POC GLUCOSE Routine 09/19/2020 8:45 Results for this AM [employer]IDE procedure are i n the results section. ESTIMATED GFR Routine 09/19/2020 5:30 Results fo r this AM [employer] AIDE procedure are i n the results section. CBC HEMOGRAM Routine 09/19/2020 5:30 Results for this AM [employer] AIDE procedure are i n the results section. BASIC METABOLIC PANEL Routine 09/19/2020 5:30 Re sults for this AM [employer] AIDE procedure are i n the results section. POC GLUCOSE Routine 09/18/2020 9:02 Results for this PM [employer] AIDE procedure are i n the results section. POC GLUCOSE Routine 09/18/2020 5:31 Results for this PM [employer] AIDE procedure are i n the results section. POC GLUCOSE Routine 09/18/2020 1:09 Results for this PM [employer] AIDE procedure are i n the results section. XR CHEST 1 VW PORTABLE STAT 09/18/2020 9:37 R esults for this AM [employer]ING AIDE procedure are i n the results section. POC GLUCOSE Routine 09/18/2020 8:31 Results for this AM [employer] AIDE procedure are i n the results section. POC GLUCOSE Routine 09/18/2020 5:31 Results for this AM [employer] AIDE procedure are i n the results section. ESTIMATED GFR Routine 09/18/2020 3:00 Results fo r this AM [employer] AIDE procedure are i n the results section. CBC HEMOGRAM Routine 09/18/2020 3:00 Results for this AM [employer] AIDE procedure are i n the results section. BASIC METABOLIC PANEL Routine 09/18/2020 3:00 Re sults for this AM [employer] AIDE procedure are i n the results section. POC GLUCOSE Routine 09/17/2020 11:54 Results for this PM [employer] AIDE procedure are i n the results section. POC GLUCOSE Routine 09/17/2020 4:46 Results for this PM [employer] AIDE procedure are i n the results section. POC GLUCOSE Routine 09/17/2020 1:04 Results for this PM [employer] AIDE procedure are i n the results section. POC GLUCOSE Routine 09/17/2020 8:19 Results for this AM [employer]SELING AIDE procedure are i n the results section. ESTIMATED GFR Routine 09/17/2020 4:10 Results fo r this AM [employer]SEL[employer] AIDE procedure are i n the results section. PHOSPHORUS LEVEL Routine 09/17/2020 4:10 Results for this AM [employer]SELING AIDE procedure are i n the results section. MAGNESIUM LEVEL Routine 09/17/2020 4:10 Results for this AM [employer] AIDE procedure are i n the results section. BASIC METABOLIC PANEL Routine 09/17/2020 4:10 Re sults for this AM [employer] AIDE procedure are i n the results section. HC COMPLETE BLD COUNT Routine 09/17/2020 4:10 Re sults for this W/AUTO DIFF AM [employer] AIDE procedure are i n the results section. POC GLUCOSE Routine 09/16/2020 10:05 Results for this PM [employer] AIDE procedure are i n the results section. XR CHEST 1 VW PORTABLE STAT 09/16/2020 8:58 R esults for this PM [employer]IDE procedure are i n the results section. POC GLUCOSE Routine 09/16/2020 5:59 Results for this PM [employer] AIDE procedure are i n the results section. XR CHEST 1 VW PORTABLE STAT 09/16/2020 4:27 R esults for this PM [employer] AIDE procedure are i n the results section. SURGICAL PATHOLOGY Routine 09/16/2020 4:11 Resul ts for this REQUEST PM [employer] AIDE procedure are i n the results section. SURGICAL PATHOLOGY Routine 09/16/2020 4:11 Resul ts for this REQUEST PM [employer] AIDE procedure are i n the results section. BAL CELL COUNT AND Routine 09/16/2020 2:46 Resul ts for this DIFFERENTIAL PM [employer] AIDE procedure are i n the results section. CYTOLOGY Routine 09/16/2020 1:20 Results for this (NON-GYNECOLOGICAL) PM [employer] AIDE procedur e are in REQUEST the results section. CYTOLOGY Routine 09/16/2020 1:20 Results for this (NON-GYNECOLOGICAL) PM [employer] AIDE procedur e are in REQUEST the results section. CYTOLOGY Routine 09/16/2020 1:20 Results for this (NON-GYNECOLOGICAL) PM [employer] AIDE procedur e are in REQUEST the results section. CYTOLOGY Routine 09/16/2020 1:20 Results for this (NON-GYNECOLOGICAL) PM [employer] AIDE procedur e are in REQUEST the results section. WY AN ELECTIVE Routine 09/16/2020 1:03 Results f or this ENDOTRACHEAL AIRWAY PM [employer] COUNSELING AIDE procedur e are in the results section. CYTOLOGY Routine 09/16/2020 10:45 Results for this (NON-GYNECOLOGICAL) AM [employer] AIDE procedur e are in REQUEST the results section. CYTOLOGY Routine 09/16/2020 10:45 Results for this (NON-GYNECOLOGICAL) AM [employer] AIDE procedur e are in REQUEST the results section. CYTOLOGY Routine 09/16/2020 10:44 Results for this (NON-GYNECOLOGICAL) AM [employer] AIDE procedur e are in REQUEST the results section. CYTOLOGY Routine 09/16/2020 10:44 Results for this (NON-GYNECOLOGICAL) AM [employer] AIDE procedur e are in REQUEST the results section. TTE COMPLETE, W Routine 09/16/2020 10:00 Results for this CONTRAST, W DOPPLER AM [employer] AIDE procedur e are in ([id number]) the results section. POC GLUCOSE Routine 09/16/2020 9:16 Results for this AM [employer] AIDE procedure are i n the results section. CT CHEST WO CONTRAST STAT 09/16/2020 8:50 Res ults for this AM [employer] AIDE procedure are i n the results section. CYTOLOGY Routine 09/16/2020 6:12 Results for this (NON-GYNECOLOGICAL) AM [employer] AIDE procedur e are in REQUEST the results section. CYTOLOGY Routine 09/16/2020 6:12 Results for this (NON-GYNECOLOGICAL) AM [employer] AIDE procedur e are in REQUEST the results section. CYTOLOGY Routine 09/16/2020 6:12 Results for this (NON-GYNECOLOGICAL) AM [employer] AIDE procedur e are in REQUEST the results section. POC GLUCOSE Routine 09/16/2020 4:25 Results for this AM [employer] AIDE procedure are i n the results section. ABO AND RH CONFIRMATION Routine 09/16/2020 4:25 Results for this AM [employer] AIDE procedure are i n the results section. B NATRIURETIC PEPTIDE Routine 09/16/2020 4:25 Re sults for this AM [employer] AIDE procedure are i n the results section. HC COMPLETE BLD COUNT Routine 09/16/2020 4:25 Re sults for this W/AUTO DIFF AM [employer]IDE procedure are i n the results section. ESTIMATED GFR Routine 09/16/2020 4:00 Results fo r this AM [employer] AIDE procedure are i n the results section. PHOSPHORUS LEVEL Routine 09/16/2020 4:00 Results for this AM [employer] AIDE procedure are i n the results section. MAGNESIUM LEVEL Routine 09/16/2020 4:00 Results for this AM [employer] AIDE procedure are i n the results section. BASIC METABOLIC PANEL Routine 09/16/2020 4:00 Re sults for this AM [employer] AIDE procedure are i n the results section. ANTIBODY IDENTIFICATION Routine 09/16/2020 1:35 Results for this AM [employer] AIDE procedure are i n the results section. TYPE AND SCREEN Routine 09/16/2020 1:35 Results for this AM [employer] AIDE procedure are i n the results section. POC GLUCOSE Routine 09/16/2020 1:06 Results for this AM [employer] AIDE procedure are i n the results section. URINE CULTURE Routine 09/15/2020 9:52 Results fo r this PM [employer]IDE procedure are i n the results section. POC GLUCOSE Routine 09/15/2020 8:59 Results for this PM [employer] AIDE procedure are i n the results section. URINALYSIS SCREEN AND Routine 09/15/2020 6:55 Re sults for this MICROSCOPY, WITH REFLEX PM [employer] AIDE proc edure are in TO CULTURE the results section. POC GLUCOSE Routine 09/15/2020 5:11 Results for this PM [employer] AIDE procedure are i n the results section. POC GLUCOSE Routine 09/15/2020 11:52 Results for this AM [employer] AIDE procedure are i n the results section. POC GLUCOSE Routine 09/15/2020 8:08 Results for this AM [employer]ING AIDE procedure are i n the results section. ESTIMATED GFR Routine 09/15/2020 4:50 Results fo r this AM [employer] AIDE procedure are i n the results section. PHOSPHORUS LEVEL Routine 09/15/2020 4:50 Results for this AM [employer] AIDE procedure are i n the results section. MAGNESIUM LEVEL Routine 09/15/2020 4:50 Results for this AM [employer] AIDE procedure are i n the results section. BASIC METABOLIC PANEL Routine 09/15/2020 4:50 Re sults for this AM [employer] AIDE procedure are i n the results section. HC COMPLETE BLD COUNT Routine 09/15/2020 4:50 Re sults for this W/AUTO DIFF AM [employer] AIDE procedure are i n the results section. POC GLUCOSE Routine 09/14/2020 9:19 Results for this PM [employer] AIDE procedure are i n the results section. POC GLUCOSE Routine 09/14/2020 5:11 Results for this PM [employer] AIDE procedure are i n the results section. POC GLUCOSE Routine 09/14/2020 1:39 Results for this PM [employer] AIDE procedure are i n the results section. HC COMPLETE BLD COUNT STAT 09/14/2020 8:44 Re sults for this W/AUTO DIFF AM [employer] AIDE procedure are i n the results section. POC GLUCOSE Routine 09/14/2020 7:08 Results for this AM [employer] AIDE procedure are i n the results section. ESTIMATED GFR STAT 09/14/2020 7:08 Results fo r this AM [employer] AIDE procedure are i n the results section. BASIC METABOLIC PANEL STAT 09/14/2020 7:08 Re sults for this AM [employer] AIDE procedure are i n the results section. HC COMPLETE BLD COUNT Routine 09/14/2020 5:30 Re sults for this W/AUTO DIFF AM [employer] AIDE procedure are i n the results section. HEMOGLOBIN A1C Routine 09/14/2020 5:30 Results f or this AM [employer] AIDE procedure are i n the results section. BLOOD CULTURE, AEROBIC Routine 09/13/2020 8:40 R esults for this & ANAEROBIC PM [employer] AIDE procedure are i n the results section. BLOOD CULTURE, AEROBIC Routine 09/13/2020 8:40 R esults for this & ANAEROBIC PM [employer] AIDE procedure are i n the results section. POC GLUCOSE Routine 09/13/2020 7:28 Results for this PM [employer] AIDE procedure are i n the results section. TROPONIN Timed 09/13/2020 5:00 Results for this PM [employer] AIDE procedure are i n the results section. COVID-19 QUALITATIVE STAT 09/13/2020 3:07 Res ults for this PCR PM [employer] AIDE procedure are i n the results section. NM LUNG PERFUSION STAT 09/13/2020 1:26 Result s for this IMAGING PM [employer] AIDE procedure are i n the results section. CT CHEST WO CONTRAST Routine 09/13/2020 12:50 Res ults for this PM [employer] AIDE procedure are i n the results section. TROPONIN Timed 09/13/2020 11:56 Results for this AM [employer] AIDE procedure are i n the results section. US DUPLEX VENOUS LOWER STAT 09/13/2020 11:00 R esults for this EXTREMITY RIGHT AM [employer] AIDE procedure ar e in the results section. ECG 12-LEAD STAT 09/13/2020 9:59 Results for this AM [employer] AIDE procedure are i n the results section. MAGNESIUM LEVEL STAT 09/13/2020 8:18 Results for this AM [employer] AIDE procedure are i n the results section. ESTIMATED GFR STAT 09/13/2020 8:18 Results fo r this AM [employer] AIDE procedure are i n the results section. TROPONIN STAT 09/13/2020 8:18 Results for this AM [employer] AIDE procedure are i n the results section. BASIC METABOLIC PANEL STAT 09/13/2020 8:18 Re sults for this AM [employer] AIDE procedure are i n the results section. PARTIAL THROMBOPLASTIN STAT 09/13/2020 8:18 R esults for this TIME (PTT) AM [employer]IDE procedure are i n the results section. PROTHROMBIN TIME WITH STAT 09/13/2020 8:18 Re sults for this INR AM [employer] AIDE procedure are i n the results section. HC COMPLETE BLD COUNT STAT 09/13/2020 8:18 Re sults for this W/AUTO DIFF AM [employer]IDE procedure are i n the results section. ECG 12-LEAD Routine 09/13/2020 8:14 Results for this AM [employer] AIDE procedure are i n the results section. ECG ED PRELIMINARY Routine 09/13/2020 8:13 Resul ts for this INTERPRETATION AM [employer] AIDE procedure are in the results section. ECG ED PRELIMINARY Routine 09/13/2020 8:13 Resul ts for this INTERPRETATION AM [employer] AIDE procedure are in the results section. [id number] Routine 09/12/2020 MRI BRAIN W WO CONTRAST [...] BASE TO Routine 08/16/2020 MID THIGH after 11/14/2019 Results POC glucose (09/19/2020 8:45 AM [employer] COUNSELING AIDE)Only the most recent of24 resultswithin the time period is included. POC glucose 174 (H) 65 - 99 mg/dL [facility] Comment: HOSPITAL Candle Extrusion Machine Operator Name: Germaine Vasquez Device ID: [id number] Chartable: [facility] Notified RN Specimen Blood Performing Organization Address City/[facility] Phon e Number [facility] DEPARTMENT OF PATHOLOGY AND [address] [place], [place] [phone] [address] [address] Estimated GFR (09/19/2020 5:30 AM [employer]LE COUNSELING AIDE)Only the most recent of7 resultswithin the time period is included. [facility] Estimated GFR 39 (A) mL/min/1.73 [facility] Comment: HOSPITAL Catergory Units Interpretation G1 >=90 [...] in 2014. Specimen Plasma Performing Organization Address City/[facility] Phon e Number [facility] DEPARTMENT OF PATHOLOGY AND [address] [place], [place] [phone] [address] [address] CBC hemogram (09/19/2020 5:30 AM [employer]OLE COUNSELING AIDE)Only the most recent of2 resultswithin the time period is included. Pathologist Sig nature WBC 6.70 4.50 - 11.00 k/uL [facility] RBC 4.61 4.20 - 5.50 m/uL [facility] HGB 12.0 12.0 - 16.0 g/dL [facility] HCT 36.7 (L) 37.0 - 47.0 % [facility] MCV 79.6 (L) 82.0 - 100.0 fL [facility] MCH 26.0 (L) 27.0 - 34.0 pg [facility] MCHC 32.7 31.0 - 37.0 g/dL [facility] RDW - SD 37.4 37.0 - 55.0 fL [facility] MPV 11.4 8.8 - 13.2 fL [facility] Platelet count 207 150 - 400 k/uL [facility] Nucleated RBC 0.00 /100 WBC [facility] Specimen Plasma Performing Organization Address City/[facility] Phon e Number [facility] DEPARTMENT OF PATHOLOGY AND [address] [place] [address] [phone] [address] Basic metabolic panel (09/19/2020 5:30 AM [employer] COUNSELING AIDE)Only the most recent of7 results within the time period is included. Pathologist Sig nature Sodium 140 135 - 148 mEq/L [facility] Potassium 4.0 3.5 - 5.0 mEq/L [facility] Chloride 104 98 - 112 mEq/L [facility] CO2 24 24 - 31 mEq/L [facility] Anion gap 12@ANIO 7 - 15 mEq/L [facility] BUN 12 8 - 23 mg/dL [facility] Creatinine 1.29 (H) 0.50 - 0.90 mg/dL [facility] Glucose 148 (H) 65 - 99 mg/dL [facility] Calcium 8.7 (L) 8.8 - 10.2 mg/dL [facility] Specimen Plasma Performing Organization Address City/[facility] Phon e Number [facility] DEPARTMENT OF PATHOLOGY AND [address] [place] [address] [phone] [address] XR Chest 1 Vw Portable (09/18/2020 9:37 AM [employer] COUNSELING AIDE)Only the most recent of3 results within the [...] Radiology Results Incoming - 09/18/2020 9:45 AM [employer]LE COUNSELING AIDE EXAMINATION: XR CHEST 1 VW PORTABLE HISTORY: [...] City/State/ZIP Code Phon e Number [facility] [address] [place] [address] CBC with platelet and differential (09/17/2020 4:10 AM [employer]OLE COUNSELING AIDE)Only the most recent of6 resultswithin the time period is included. WBC 8.54 4.50 - 11.00 [facility] RBC 4.85 4.20 - 5.50 [facility] HGB 12.4 12.0 - 16.0 [facility]/dL [facility] HCT 39.2 37.0 - 47.0 % [facility] MCV 80.8 (L) 82.0 - 100.0 [facility] MCH 25.6 (L) 27.0 - 34.0 pg [facility] MCHC 31.6 31.0 - 37.0 [facility] g/dL [facility] RDW - SD 38.2 37.0 - 55.0 fL [facility] MPV 11.8 8.8 - 13.2 fL [facility] Platelet count 195 150 - 400 k/uL [facility] Nucleated RBC 0.00 /100 WBC [facility] Neutrophils 55.1 39.0 - 69.0 % [facility] Lymphocytes 29.2 25.0 - 45.0 % [facility] Monocytes 9.6 0.0 - 10.0 % [facility] Eosinophils 4.6 0.0 - 5.0 % [facility] Basophils 1.1 (H) 0.0 - 1.0 % [facility] Immature granulocytes 0.4Comment: 0.0 - 1.0 % [facility] "Immature HOSPITAL granulocytes" (promyelocytes , myelocytes, metamyelocytes ) Specimen Plasma Performing Organization Address [facility] Phon e Number [facility] DEPARTMENT OF PATHOLOGY AND [address] [place] [phone] Phosphorus level (09/17/2020 4:10 AM [employer] COUNSELING AIDE)Only the most recent of3 resultswithin the time period is included. Pathologist Sig nature Phosphorus 2.4 2.4 - 4.5 mg/dL [facility] Specimen Plasma Performing Organization Address [facility] Phon e Number [facility] DEPARTMENT OF PATHOLOGY AND [address] [place] [phone] Magnesium level (09/17/2020 4:10 AM [employer]LE COUNSELING AIDE)Only the most recent of4 resultswithin the time period is included. Pathologist Sig nature Magnesium 1.7 1.6 - 2.4 mg/dL [facility] L Specimen Plasma Performing Organization Address [facility] Phon e Number [facility] DEPARTMENT OF PATHOLOGY AND [address] [place] [phone] [place] [phone] Surgical pathology request (09/16/2020 4:11 PM [employer]OLE COUNSELING AIDE)Only the most recent of2 resultswithin the time period is included. [facility] DEPARTMENT OF PATHOLOGY AND GENOMIC MEDICINE Surgical pathology See link below for [facility] DEPARTMENT O F report PDF Lab Report PATHOLOGY AND GENOMIC MEDICINE Result status This is Supplemental [facility] DEPARTMENT OF Report for PATHOLOGY AND [id number] GENOMIC MEDICINE Specimen Narrative Performed At NEOGENOMICS [facility] DEPARTMENT OF PATHOLOGY AND GENOMIC LUNG NGS MEDICINE [id number] DOS 09/16/2020 Block B1 Performing Organization Address City/[facility] Phon e Number [facility] DEPARTMENT OF PATHOLOGY AND [address] [place] [phone] GENOMIC MEDICINE BAL cell count and differential (09/16/2020 2:46 PM [employer]OLE COUNSELING AIDE) BAL specimen source MAX BAL [facility] BAL cell count 0.040 m/mL [facility] Comment: HOSPITAL Normal ranges: Nonsmokers: 0.007 - 0.363 Smokers: 0 - 1.31 73% viability, many rbc's present BAL PAMS 3 % [facility] Comment: [facility] Normal ranges: Nonsmokers: 65 - 100 Smokers: 81 - 100 BAL PMNS 83 % [facility] Comment: [facility] Normal ranges: Nonsmokers: 0 - 3 Smokers: 0 - 2 BAL eosinophils 10 % [facility] Comment: HOSPITAL Normal ranges: Nonsmokers: 0 - 1 Smokers: 0 - 1 BAL lymphs 4 % [facility] Comment: HOSPITAL Normal ranges: Nonsmokers: 0 - 10 Smokers: 0 - 5 Specimen Fluid Narrative Performed At [facility] DEPARTMENT OF PATHOLOGY AND GENOMIC MEDICINE Performing Organization Address City/[facility] Phon e Number [facility] DEPARTMENT OF PATHOLOGY AND [address] [place] [address] 0 GENOMIC MEDICINE [address] [address] Cytology (non-gynecological) request (09/16/2020 1:20 PM [employer]PAROLE COUNSELING AIDE)Only the most recent of11 resultswithin the time period is included. [facility] DEPARTMENT OF PATHOLOGY AND GENOMIC MEDICINE Cytology See link below [facility] DEPARTMENT OF (non-gynecological) for PDF Lab PATHOLOGY AND report Report GENOMIC MEDICINE Result status This is Final [facility] DEPARTMENT OF Report for PATHOLOGY AND [id number] GENOMIC MEDICINE Specimen Performing Organization Address City/[facility] Phon e Number [facility] DEPARTMENT OF PATHOLOGY AND [address] [place] [phone] GENOMIC MEDICINE Airway (09/16/2020 1:03 PM PREPAROLE COUNSELING AIDE) Narrative Performed At Jaskaran Molina MD 09/16/2020 [...] and 3D if needed) (09/16/2020 10:00 AM PREPAROLE COUNSELING AIDE) Specimen Narrative Performed At [facility] Echo cardiography Report [address] [facility], [place] [address] Pat.Name: DAHIANA WEATHERS [facility].ID: [id number] .Date: 09/16/2020 Refer.MD: ANALI BURGOS MD Exam Time: 9:19:00 AM Study Type:R outine Echo Height: 62in Weight: 148lb BSA: 1.68 m2 Ag e: 1940,80Y Sex: FEMALE BP: 120/56 HR: 73 bpm Sonogr phr: ODILON Friend, RDCS Pat. Stat.:Inpatient Room: [place] [address] Study Status:Final Echo Event ID:[id number] Order ID: [id number] Reason for Study:Syncope Procedures: 2D Echo, Colorflow [...] of 5 mmHg. MEASUREMENTS: 2D Parasternal [place] Ao An 1.9 cm LVPWd 1 cm [...] Radiology Results In - 2019 1:09 PM [facility] Echocardiography Report [address] [place] [address] Pat.Name: DAHIANA WEATHERS Pat.I D: [id number] .Date: 09/16/2020 Refer .MD: ANALI BURGOS MD Exam Time: 9:19:00 AM Study Type:Routine Echo Height: 62in Weigh t: 148lb BSA: 1.68 m2 Age: 3 1940,80Y Sex: FEMALE BP: 120/56 HR: 73 bpm Sonog rphr: ODILON Friend, RDCS Pat. Stat.:Inpatient Room: [place] [address] Study Status:Final Echo Event ID:[id number] Order ID: [id number] Reason for Study:Syncope Procedures: 2D Echo, Colorflow [...] of 5 mmHg. MEASUREMENTS: 2D Parasternal [place] Ao An 1.9 cm LVPW d 1 [...] City/State/ZIP Code Phon e Number CUPID [address] [place] [address] CT Chest Wo Contrast (09/16/2020 8:50 AM PREPAROLE COUNSELING AIDE)Only the most recent of2 results within the time period is included. Specimen Narrative Performed At [facility]IN[facility]AST CLINICAL HISTORY: [...] Radiology Results Incoming - 09/16/2020 9:37 AM PREPAROLE COUNSELING AIDE EXAMINATION: CT CHEST WO CONTRAST CLINICAL HISTORY: [...] City/State/ZIP Code Phon e Number RADIANT [address] [place] [address] ABO and Rh confirmation (09/16/2020 4:25 AM PREPAROLE COUNSELING AIDE) Pathologist Sig nature ABO grouping A [facility] Rh type NEG [facility] Specimen Plasma Performing Organization Address [facility] Phon e Number [facility] DEPARTMENT OF PATHOLOGY AND [address] [place] [address] [phone] [address] B natriuretic peptide (09/16/2020 4:25 AM PREPAROLE COUNSELING AIDE) Pathologist Sig nature BNP 56 0 - 100 pg/mL [facility] Specimen Blood Performing Organization Address City/[facility] Phon e Number [facility] DEPARTMENT OF PATHOLOGY AND [address] [place] [address] [phone] [address] Antibody identification (09/16/2020 1:35 AM PREPAROLE COUNSELING AIDE) Pathologist Sig nature Antibody ID POS, Anti-D [facility] Specimen Performing Organization Address [facility] Phon e Number [facility] DEPARTMENT OF PATHOLOGY AND [address] [place] [address] [phone] [address] Type and screen (09/16/2020 1:35 AM PREPAROLE COUNSELING AIDE) Pathologist Sig nature ABO grouping A [facility] Rh type NEG [facility] Antibody screen (gel) POS [facility] Specimen Plasma Performing Organization Address [facility] Phon e Number [facility] DEPARTMENT OF PATHOLOGY AND [address] [place] [address] [phone] [address] Urine culture (09/15/2020 9:52 PM PREPAROLE COUNSELING AIDE) Urine culture Mixed danny <=10-3 col/cc [facility] IST isolate Comment: HOSPITAL Specimen Information Specimen Source: Urine Specimen Site: Catheterized Specimen Urine - Catheterized Performing Organization Address City/[facility]/ZIP [facility] Phon e Number [facility] DEPARTMENT OF PATHOLOGY AND [address] [place] [address] [phone] [address] Urinalysis screen and microscopy, with reflex to culture (09/15/2020 6:55 PM PREPAROLE COUNSELING AIDE) Specimen site Catheterized [facility] Color, UA Yellow [facility] Appearance, UA Clear [facility] Specific gravity, UA 1.017 1.001 - 1.035 [facility] pH, UA 5.0 5.0 - 8.5 [facility] Protein, UA Negative Negative [facility] Glucose, UA Negative Negative [facility] Ketones, UA Negative Negative [facility] Bilirubin, UA Negative Negative [facility] Blood, UA Negative Negative [facility] Nitrite, UA Negative Negative [facility] Urobilinogen, UA <2.0 <2.0 [facility] Leukocyte esterase, Small (A) Negative [facility] Epithelial cells, UA 2 /HPF [facility] WBC, UA 32 (H) 0 - 4 /HPF [facility] RBC, UA 3 0 - 5 /HPF [facility] Bacteria, UA Few None seen [facility] Yeast, UA None seen [facility] Yeast with None seen [facility] pseudohyphae, [facility] Hyaline casts, UA 20 /LPF [facility] Specimen Urine Performing Organization Address City/[facility] Phon e Number [facility] DEPARTMENT OF PATHOLOGY AND [address] [place] [phone] Hemoglobin A1c (09/14/2020 5:30 AM PREPAROLE COUNSELING AIDE) Pathologist [facility] Hemoglobin A1C 9.1 (H) 4.0 - 5.6 % [facility] Comment: HOSPITAL HbA1c cutoffs for diagnosing diabetes: [...] 1 diabetes. Specimen Blood Performing Organization Address City/[facility] Phon e Number [facility] DEPARTMENT OF PATHOLOGY AND [address] [place] [phone] Blood culture, aerobic & anaerobic (09/13/2020 8:40 PM PREPAROLE COUNSELING AIDE)Only the most recent of2 resultswithin the time period is included. Blood culture No growth after 5 days of incubation. JULIAN ALARCON isolate Comment: HOSPITAL Specimen Information Specimen Source: Blood Specimen Site: Left Forearm Specimen Blood Performing Organization Address City/[facility] Phon e Number [facility] DEPARTMENT OF PATHOLOGY AND [address] [place] [address] [phone] [address] Troponin (09/13/2020 5:00 PM PREPAROLE COUNSELING AIDE)Only the most recent of3 resultswithin the time period is included. [facility] Troponin 0.012 0.000 - 0.040 [facility] Comment: ng/mL HOSPITAL In patients suspected of [...] 0.020 ng/mL Specimen Plasma Performing Organization Address City/State/[facility] Code Phon e Number [facility] DEPARTMENT OF PATHOLOGY AND [address] [place], [place] [phone] [address] COVID-19 qualitative PCR (09/13/2020 3:07 PM PREPAROLE COUNSELING AIDE) Interpretation Negative results do not prec lude 2019-nCoV infection and should not be used as the sole basis for treatment or other patient management decisions. Negative results must be combined with clinical observations, patient history, and epidemiological RAMIREZ information. [facility] COVID-19 qualitative Not-Detected Not-Detecte DIGGS PCR result d [facility] COVID-19 qualitative See link below for DIGGS PCR PDF Lab [facility] ReportComment: Case HOSPITAL Number: [id number] Specimen Nasopharyngeal swab Performing Organization Address City/State/ZIP Code Phon e Number [facility] DEPARTMENT OF PATHOLOGY AND [address] [place], [place] [phone] GENOMIC MEDICINE [facility] [address] [place] [address] [facility] Lung Perfusion Imaging (09/13/2020 1:26 PM PREPAROLE COUNSELING AIDE) Specimen Narrative Performed At PROCEDURE: NM LUNG [...] to the CT study report for details. [facility]-[id number] Procedure Note Interface, Radiology Results Incoming - 09/13/2020 1:56 PM PREPAROLE COUNSELING AIDE PROCEDURE: NM LUNG PERFUSION IMAGING INDICATION: PE [...] to the CT study report for details. [facility]-[id number] Performing Organization Address City/State/ZIP Code Phon e Number RADIANT [address] [facility]. [place] [phone] Us duplex venous lower extremity (09/13/2020 11:00 AM PREPAROLE COUNSELING AIDE) Specimen Narrative Performed At [facility] Vascular U ltrasound Laboratory Lower Extr emity Venous Report [address] [facility], [address], [place] [address] Pat.Name: DAHIANA WEATHERS Pat.ID: [id number] .Date: 09/13/2020 Refer.MD: CAS PATE MD, RAHEEM PEREZ, ALEX Genao MD Exam Time: 10:32:00 AM Study Type:LE Venous Height: 62in Weight: 148lb BSA: 1.68 m2 Ag e: 1940,80Y Sex: FEMALE Sonogrphr: JAVIER KoromaS, Tong Gutierrez RDMS, RVT Pat. Stat.:Inpatient Room: ED19 Tape Vol: CM, CPT - 4: 910[address] Echo Event ID:[id number] Order ID: [id number] Reason for Study:Leg swelling or pain, D [...] Radiology Results In - 2019 3:09 PM [facility] Vascular Ultrasound Laboratory Lower Extremity Veno us Report [address] [place] [address] Pat.Name: DAHIANA WEATHERS Pat.I D: [id number] .Date: 09/13/2020 Refer.MD: CAS PATE MD, FARHAT Jurado, ALEX Genao MD Exam Time: 10:32:00 AM Study Type:LE Venous Height: 62in Weigh t: 148lb BSA: 1.68 m2 Age: 3 1940,80Y Sex: FEMALE Sonogrphr: TITO Koroma, Tong Gutierrez RDMS, RVT Pat. Stat.:Inpatient Room: ED19 Tape Vol: CM, CPT - 4: 11966 Echo Event ID:[id number] Order ID: [id number] Reason for Study:Leg swelling or pain, D [...] visualized veins. Results given to Dr. Parsons 8943 PHYSICIAN INTERPRETATION: Venous examination of the right lower ex tremity and left groin demonstrated no evidence of venous throm bosis in the visualized veins. Normal compressibility and augmentation of all veins visualized. FINDINGS: Signed 09/13/2020 03:09 PM Santiago Samson MD, [facility] Performing Organization Address City/State/[facility] e Number CUPID [address] [place] [address] ECG 12 lead (09/13/2020 9:59 AM PREPAROLE COUNSELING AIDE)Only the most recent of2 resultswithin the time period is included. Pathologist Sig nature Ventricular rate 93 [facility] Atrial rate 93 [facility] W[place] interval 128 [facility] QRSD interval 74 [facility] QT interval 392 [facility] QTC interval 487 [facility] QRS axis 1 -35 [facility] T wave axis 48 [facility] EKG impression Sinus rhythm with fusion com plexes-Left axis deviation-Prolonged QT-Abnormal ECG-In automated comparison with ECG of 13-SEP-2020 08:14,-fusion complexes are now present-QRS axis shifted left-Electronically Signed By Courtney STARR, Yanick Raza ([id number]) on [facility] MUSE 09/13/2020 7:27:19 PM Specimen Narrative Performed At This result has an attachment that is no t available. Performing Organization Address City/State/[facility] Phon e Number [facility] MUSE [address] [place] [phone] Partial thromboplastin time, activated (09/13/2020 8:18 AM PREPAROLE COUNSELING AIDE) PTT 24.1 23.0 - 36.0 [facility] Comment: [facility] PTT therapeutic range for unfractionated heparin is 61.0-112.0 seconds which corresponds to Anti-Xa 0.3-0.7 U/ml. Specimen Blood Performing Organization Address City/[facility] Phon e Number [facility] DEPARTMENT OF PATHOLOGY AND [address] [place] [address] [phone] [address] Prothrombin time with INR (09/13/2020 8:18 AM PREPAROLE COUNSELING AIDE) Pathologist [facility] Prothrombin time 14.5 11.5 - 14.5 [facility] INR 1.1 [facility]IG[facility] Comment: AGNES The International Normalized Ratio (INR) is a [facility] HOSPITAL monitoring tool for patients who are stable on oral anticoagulant therapy. An INR of 2.0-3.0 is suggested for deep vein thrombosis/pulmonary embolism. Specimen Blood Performing Organization Address [facility] Phon e Number [facility] DEPARTMENT OF PATHOLOGY AND [address] [place] [address] [phone] [address] ECG ED Preliminary Interpretation - Not an Order (09/13/2020 8:13 AM PREPAROLE COUNSELING AIDE)Only the most recent of2 resultswithin the time period is included. Narrative Performed At Alex Leo MD 6:44 AM ECG ED Preliminary Interpretation - Not an Order Performed by: Alex Leo MD Authorized by: Alex Leo MD ECG reviewed by ED Physician in the abse nce of a change director: yes Interpretation: Interpretation: abnormal Rate: ECG [...] not been [facility] interpreted by a [facility] Provider. T he exam was imported into our imaging system. Performing Organization Address City/[facility]/ZIP Code Phon e Number HM [facility] [address] [place] [address] PET/CT Skull Base To Mid Thigh (08/29/2020)Only the most recent of2 results within the time period is included. Narrative Performed At This result has an attachment that is no t available. NM Bone Scan External Study (08/16/2020 10:39 AM CDT) Specimen Narrative Performed At This exam was not acquired at a [facility] facility and has not been [facility] interpreted by a [facility] Provider. T he exam was imported into our imaging system. Performing Organization Address [facility] Code Phon e Number HM [facility] [address] [place] [address] CT Chest External Study (08/16/2020 8:43 AM CDT) Specimen Narrative Performed At This exam was not acquired at a [facility] facility and has not been [facility] interpreted by a [facility] Provider. T he exam was imported into our imaging system. Performing Organization Address [facility] Phon e Number HM [facility] [address] [place] [address] CT Chest Wo Contrast Abdomen Wo Contrast Pelvis Wo Contrast (08/16/2020) Narrative Performed At This result has an attachment that is no t available. after 11/14/2019
[2020-11-14 18:28] LABS: Absolute Lymphocytes (CBC) 1.1 K/uL (0.7-4.9); Hematocrit 36.2 % (36.0-45.0); Lymphocytes % 16.8 % (15.3-44.8); MPV 10.6 fL (7.6-11.3); RBC Red Blood Cell Count 4.62 M/uL (3.86-4.86)
--- NOTE | 2020-11-14 18:35 | RAD REPORT ---
EXAM DESCRIPTION: CT - Head Brain Wo Cont - 11/14/2020 6:26 pm CLINICAL HISTORY: Alteration of awareness/confusion COMPARISON: November 09, 2020 TECHNIQUE: Computed axial tomography of the head was obtained. IV contrast was not requested. All CT scans are performed using dose optimization technique as appropriate and may include automated exposure control or mA/KV adjustment according to patient size. FINDINGS: An intracranial bleed is not seen . The ventricles are normal in caliber. Small parafalcine lipomas No extra-axial fluid collection is noted. Basal ganglia calcifications unchanged Mild low-density areas within periventricular, deep and subcortical white matter likely represent isc hemic changes secondary to small vessel disease. Fluid within the sinuses/ mastoids is not seen. IMPRESSION: No acute intracranial abnormality is seen. If patient's symptoms persist MRI of the bra in would be recommended.
[2020-11-14 18:41] LABS: Protime INR 1.03
[2020-11-14 18:50] LABS: ALT/SGPT 16 U/L (12-78); AST/SGOT 17 U/L (15-37); Alkaline Phosphatase 69 U/L (45-117); BUN Blood Urea Nitrogen 22 mg/dL (7-18); Bicarbonate 27 mmol/L (21-32); Bilirubin Direct < 0.1 mg/dL (0-0.2); Bilirubin Total 0.3 mg/dL (0.2-1.0); Glucose Level 81 mg/dL (74-106); Potassium 3.6 mmol/L (3.5-5.1); Protein, Total 6.7 g/dL (6.4-8.2); Sodium Level 140 mmol/L (136-145); Troponin (Emerg Dept Use Only) < 0.02 ng/mL (0.0-0.045)
[2020-11-14] MEDS ORDERED: NA CHLORIDE 0.9% 1,000 ML ONE ×2 (18:58→20:28)
--- NOTE | 2020-11-14 19:11 | ER ---
Nurse's Notes [facility] Laura Name: Dahiana Smith Age: 80 yrs Sex: Female : 1940 Arrival Date: 11/14/2020 Time: 17:54 Bed 4 Private MD: Diagnosis: Altered mental status, unspecified Presentation: 11/14 17:56 Chief complaint: EMS states: Pt given Durand 5 and became unresponsive at home, 2 Narcan jl7 given nasally at home, 2 more given on arrival to ED, BGL 135. Coronavirus screen: Client denies travel out of the [place] in the last 14 days. At this time, the client does not indicate any symptoms associated with coronavirus-19. Ebola Screen: No symptoms or risks identified at this time. Initial Sepsis Screen: Does the patient meet any 2 criteria? No. Patient's initial sepsis screen is negative. Does the patient have a suspected source of infection? No. Patient's initial sepsis screen is negative. Risk Assessment: Do you want to hurt yourself or someone else? Patient reports no desire to harm self or others. Onset of symptoms was November 14, 2020. Care prior to arrival: Medication(s) given: Narcan 4 mg intranasal Glucose check: 135. 17:56 Method Of Arrival: EMS: [place] [address] 17:56 Acuity: DULCE 2 jl7 Triage Assessment: 18:00 General: Appears distressed, uncomfortable, Behavior is lethargic. Pain: Unable to use jl7 pain scale. FLACC scale score is 0 out of 10. Neuro: Level of Consciousness is lethargic. Cardiovascular: Rhythm is regular. Respiratory: Airway is patent Respiratory effort is shallow, Respiratory pattern is regular. Derm: Skin is dry, Skin is pale, Skin temperature is cool. Historical: - Allergies: 18:00 Iodine; jl7 - Home Meds: 18:00 Durand 5-325 mg Oral tab [Active]; jl7 - PMHx: 18:00 Cancer; Diabetes - IDDM; jl7 - Immunization history:: Adult Immunizations unknown. - Social history:: Smoking status: unknown. Screenin:48 Abuse screen: Denies threats or abuse. Denies injuries from another. Nutritional jl7 screening: No deficits noted. Tuberculosis screening: No symptoms or risk factors identified. Fall Risk No fall in past 12 months (0 pts). No secondary diagnosis (0 pts). IV access (20 points). Ambulatory Aid- None/Bed Rest/Nurse Assist (0 pts). Gait- Weak (10 pts.). Mental Status- Overestimates/Forgets Limitations (15 pts.). Total Almonte Fall Scale indicates High Risk Score (45 or more points). Fall prevention measures have been instituted. Side Rails Up X 2 Placed Close to Nursing Station Frequent Obs/Assessments Occuring Family Present and informed to notify staff if the need to leave the bedside As available patient and family educated on Fall Prevention Program and Strategies. Assessment: 18:05 General: see triage assessment. Neuro: Pupils are pinpoint. jl7 20:26 Reassessment: Patient and/or family updated on plan of care and expected duration. Pain ea level reassessed. Patient is alert, oriented x 3, equal unlabored respirations, skin warm/dry/pink. Provider at bedside updating pt on plan of care. 21:17 Reassessment: Patient and/or family updated on plan of care and expected duration. Pain ea level reassessed. Pt alert and oriented to self and place. Pt admitted to second floor. Report given to receiving nurse on second floor. Pt left ED via stretcher per veterinary technology instructor, pt tolerating well. Vital Signs: 17:56 BP 78 / 43; Pulse 52; Resp 14; Temp 97.2; Pulse Ox 100% ; jl7 18:46 BP 85 / 47; Pulse 54; iw 20:26 BP 114 / 54; Pulse 57; Resp 16; Pulse Ox 99% ; ea 21:20 BP 126 / 58; Pulse 61; Resp 18; Temp 97.8; Pulse Ox 99% ; ea [place] Coma Score: 18:05 Eye Response: to pain(2). Verbal Response: none(1). Motor Response: localizes pain(5). jl7 Total: 8. ED Course: 17:54 Patient arrived in ED. em1 17:56 Severo Tamez RN is Primary Nurse. jl7 17:58 Yimi Martinez MD is Attending Physician. kdr 18:00 Triage completed. jl7 18:00 Arm band placed on right wrist. jl7 18:02 Inserted saline lock: 20 gauge in right forearm, using aseptic technique. Blood dh3 collected. 18:04 Patient has correct armband on for positive identification. Bed in low position. Call jl7 light in reach. Side rails up X2. court monitor on. Pulse ox on. NIBP on. 18:20 Initial lab(s) drawn, by ak, sent to lab. [facility] 18:26 CT Head Brain wo Cont In Process Unspecified. EDMS 18:32 EKG done, by ED staff, reviewed by Yimi Martinez MD. 3 19:10 Jeannine Zimmerman MD is Hospitalizing Provider. kdr 19:50 No provider procedures requiring assistance completed. IV is patent, with fluids rv infusing freely, Patient admitted, IV remains in place. Administered Medications: 18:45 Drug: NS 0.9% 1000 ml Route: IV; Rate: 1 bolus; Site: right forearm; iw 21:07 Follow up: Response: No adverse reaction; IV Status: Completed infusion; IV Intake: ea 1000ml Intake: 21:07 IV: 1000ml; Total: 1000ml. ea Outcome: 19:10 Decision to Hospitalize by Provider. kdr 19:50 Condition: good rv 20:25 Instructed on the need for admit. ea 21:17 Admitted to Med/surg accompanied by tech, via stretcher, room 218, with chart, Report ea called to Report called to receiving nurse in ED 21:24 Patient left the ED. ea Signatures: Dispatcher [employer] EDMS Yimi Martinez MD MD kdr Brandy Duncan, RN RN Chato Briones em1 Severo Tamez RN RN jl7 Jen Morris [facility] Yi Urrutia, RN RN Cooper Peoples, RN RN rv
--- NOTE | 2020-11-14 19:11 | EDPHYS ---
Physician Documentation [facility] Name: Dahiana Smith Age: 80 yrs Sex: Female : 1940 Arrival Date: 11/14/2020 Time: 17:54 Bed 4 Private MD: ED Physician Yimi Martinez HPI: 11/15 07:55 This 80 yrs old Female presents to ER via EMS with complaints of AMS. kdr 07:55 The patient presents with decreased mental status, decreased responsiveness. Onset: The kdr symptoms/episode began/occurred just prior to arrival. Possible causes: Overdose on narcotics for pain relief secondary to stage 4 lung cancer. Current symptoms: In the emergency department the patient's symptoms have improved, moderately. Patient's baseline: Neuro: alert and fully oriented, Motor: no deficits, Ambulation: walks without assistance, Speech: normal for age. The patient has experienced similar episodes in the past, a few times, The patient has been having a hard time with pain control versus over sedation for pain control. The patient has been recently seen by a physician: the patient's primary care provider. Historical: - Allergies: 11/14 18:00 Iodine; jl7 - Home Meds: 18:00 [place] 5-325 mg Oral tab [Active]; jl7 - PMHx: 18:00 Cancer; Diabetes - IDDM; jl7 - Immunization history:: Adult Immunizations unknown. - Social history:: Smoking status: unknown. ROS: 11/15 07:55 Constitutional: Negative for fever, chills, and weight loss, Eyes: Negative for injury, kdr pain, redness, and discharge, ENT: Negative for injury, pain, and discharge, Neck: Negative for injury, pain, and swelling, Cardiovascular: Negative for chest pain, palpitations, and edema, Respiratory: Negative for shortness of breath, cough, wheezing, and pleuritic chest pain, Abdomen/GI: Negative for abdominal pain, nausea, vomiting, diarrhea, and constipation, Back: Negative for injury and pain, : Negative for injury, bleeding, discharge, and swelling, MS/Extremity: Negative for injury and deformity, Skin: Negative for injury, rash, and discoloration, Psych: Negative for depression, anxiety, suicide ideation, homicidal ideation, and hallucinations, Allergy/Immunology: Negative for hives, rash, and allergies, Endocrine: Negative for neck swelling, polydipsia, polyuria, polyphagia, and marked weight changes, Hematologic/Lymphatic: Negative for swollen nodes, abnormal bleeding, and unusual bruising. Neuro: Positive for altered mental status, weakness, Negative for gait disturbance, headache, seizure activity, speech changes, syncope, near syncope, tremor. Exam: 07:55 Constitutional: This is a well developed, well nourished patient who is awake, alert, kdr and in no acute distress. Head/Face: Normocephalic, atraumatic. Eyes: Pupils equal round and reactive to light, extra-ocular motions intact. Lids and lashes normal. Conjunctiva and sclera are non-icteric and not injected. Cornea within normal limits. Periorbital areas with no swelling, redness, or edema. Neck: Trachea midline, no thyromegaly or masses palpated, and no cervical lymphadenopathy. Supple, full range of motion without nuchal rigidity, or vertebral point tenderness. No Meningismus. Chest/axilla: Normal chest wall appearance and motion. Nontender with no deformity. No lesions are appreciated. Cardiovascular: Regular rate and rhythm with a normal S1 and S2. No gallops, murmurs, or rubs. Normal PMI, no JVD. No pulse deficits. Respiratory: Lungs have equal breath sounds bilaterally, clear to auscultation and percussion. No rales, rhonchi or wheezes noted. No increased work of breathing, no retractions or nasal flaring. Abdomen/GI: Soft, non-tender, with normal bowel sounds. No distension or tympany. No guarding or rebound. No evidence of tenderness throughout. Back: No spinal tenderness. No costovertebral tenderness. Full range of motion. Skin: Warm, dry with normal turgor. Normal color with no rashes, no lesions, and no evidence of cellulitis. MS/ Extremity: Pulses equal, no cyanosis. Neurovascular intact. Full, normal range of motion. Psych: Awake, alert, with orientation to person, place and time. Behavior, mood, and affect are within normal limits. 10:14 ECG was reviewed by the Attending Physician. kdr Vital Signs: 11/14 17:56 BP 78 / 43; Pulse 52; Resp 14; Temp 97.2; Pulse Ox 100% ; jl7 18:46 BP 85 / 47; Pulse 54; iw 20:26 BP 114 / 54; Pulse 57; Resp 16; Pulse Ox 99% ; ea 21:20 BP 126 / 58; Pulse 61; Resp 18; Temp 97.8; Pulse Ox 99% ; ea Renetta Coma Score: 18:05 Eye Response: to pain(2). Verbal Response: none(1). Motor Response: localizes pain(5). jl7 Total: 8. MDM: 19:10 Patient medically screened. [facility] 11/15 08:05 Data reviewed: vital signs, nurses notes, lab test result(s), EKG, radiologic studies. kdr Counseling: I had a detailed discussion with the patient and/or guardian regarding: the historical points, exam findings, and any diagnostic results supporting the discharge/admit diagnosis, lab results, radiology results, the need for further work-up and treatment in the hospital. 11/14 18:11 Order name: Acetaminophen; Complete Time: 18:59 [facility] 11/14 18:11 Order name: Basic Metabolic Panel; Complete Time: 18:59 [facility] 11/14 18:11 Order name: CBC with Diff; Complete Time: 18:59 [facility] 11/14 18:11 Order name: ETOH Level; Complete Time: 18:59 [facility] 11/14 18:11 Order name: Hepatic Function; Complete Time: 18:59 [facility] 11/14 18:11 Order name: PT-INR; Complete Time: 18:59 [facility] 11/14 18:11 Order name: Ptt, Activated; Complete Time: 18:59 [facility] 11/14 18:11 Order name: Salicylate; Complete Time: 18:59 [facility] 11/14 18:11 Order name: Urine Drug Screen [facility] 11/14 18:11 Order name: EKG; Complete Time: 18:12 [facility] 11/14 18:11 Order name: EKG - Nurse/Tech; Complete Time: 18:21 [facility] 11/14 18:11 Order name: CT Head Brain wo Cont; Complete Time: 18:59 [facility] 11/14 18:12 Order name: Troponin (emerg Dept Use Only); Complete Time: 18:59 [facility] 11/14 18:11 Order name: IV Saline Lock; Complete Time: 18:21 [facility] 11/14 18:11 Order name: Labs collected and sent; Complete Time: 18:21 kdr EC:14 Rhythm is regular, Sinus bradycardia with No ectopy. QRS Adel is Normal. RI interval is kdr normal. QRS interval is normal. QT interval is normal. Clinical impression: NSR w/ Non-specific ST/T Changes and Sinus bradycardia. Administered Medications: 11/14 18:45 Drug: NS 0.9% 1000 ml Route: IV; Rate: 1 bolus; Site: right forearm; iw 21:07 Follow up: Response: No adverse reaction; IV Status: Completed infusion; IV Intake: ea 1000ml Disposition: 11/14/20 19:10 Hospitalization ordered by Jeannine Zimmerman for Observation. Preliminary diagnosis is Altered mental status, unspecified. - Bed requested for Telemetry/MedSurg (Inpatient). - Status is Observation. ea - Condition is Fair. - Problem is new. - Symptoms have improved. Signatures: Dispatcher [employer] EDMS Yimi Martinez MD MD kdr Brandy Duncan RN Severo Thomas RN JONAS jl7 Yi Urrutia RN Leander Sam ea tt3 Corrections: (The following items were deleted from the chart) 20:43 19:10 Hospitalization Ordered by Jeannine Zimmerman MD for Observation. Preliminary tt3 diagnosis is Altered mental status, unspecified. Bed requested for Telemetry/MedSurg (observation). Status is Observation. Condition is Fair. Problem is new. Symptoms have improved. kdr 21:24 20:43 11/14/2020 19:10 Hospitalization Ordered by Jeannine Zimmerman MD for Observation. ea Preliminary diagnosis is Altered mental status, unspecified. Bed requested for Telemetry/MedSurg (Inpatient). Status is Observation. Condition is Fair. Problem is new. Symptoms have improved. tt3
[2020-11-14] MEDS: NA CHLORIDE 0.9% 1,000 ML IV SCH (21:33)
[2020-11-14] MEDS ORDERED: ONDANSETRON 4 MG/2 ML VIAL IV PRN (21:33)
[2020-11-14 22:13] VITALS: BMI 26.4
[2020-11-14 23:54] LABS: Barbiturates NEGATIVE (NEGATIVE); Benzodiazepines NEGATIVE (NEGATIVE); Cocaine NEGATIVE (NEGATIVE); METHAMPHETAM NEGATIVE (NEGATIVE); Methadone NEGATIVE (NEGATIVE); Opiates NEGATIVE (NEGATIVE); Phencyclidine NEGATIVE (NEGATIVE); THC Cannibis POSITIVE (NEGATIVE)
--- NOTE | 2020-11-15 02:23 | P.HP ---
Certification for Inpatient Patient admitted to: Observation With expected LOS: <2 Midnights Patient will require the following post-hospital care: None Practitioner: I am a practitioner with admitting privileges, knowledge of patient current condition, hospital course, and medical plan of care. Services: Services provided to patient in accordance with Admission requirements found in Title 42 Section 412.3 of the Code of Federal Regulations Patient History Date of Service: 11/15/20 Primary Care Provider: Bryn Reason for admission: Opiod overdose, Hypotension, AMS, Renal Insufficiency History of Present Illness: This is an 80-year-old female with a history of stage IV cancer, diabetes mellitus, hypothyroidism that was brought to the emergency room today after EMS was called out because patient was unresponsive at home. Patient recently was admitted at this facility and discharged. Patient was given Narcan by EMS which has improved patient's mental status. Family stated that she has been having trouble balancing her pain medicines with her current condition. Currently she is supposed to be on [place] 5 mg at home. Patient also currently has a PICC line for an infection that family could not tell us about but is on Levaquin and 1 other antibiotic at this time. 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 Patient was worked up in the emergency room and found to have a white blood cell count is 6.7 hemoglobin of 11, hematocrit of 36.2 and platelet 134. Patient had a sodium of 140, potassium 3.6, chloride 107, bicarb 27, BUN 22, creatinine of 2.03, and a glucose of 81. It was found that creatinine has significantly increase from recent discharge. Family stated that she does have chronic diarrhea secondary to her aromatase inhibitor for her chemotherapy that she is on. Patient currently alert and oriented to person and place at this time in the emergency room with no decrease in respiratory rate or hypotension. Patient did have hypotension initially and was given fluids. Allergies iodine Allergy (Verified 11/14/20 22:36) Hives/Rash Red berries Allergy (Uncoded 11/12/20 17:03) Rash Home medications list reviewed: Yes Home Medications: Anastrozole [Arimidex*] 1 mg PO DAILY 03/05/16 Clonidine HCl [Catapres] 0.1 mg PO TID 10/31/20 Escitalopram [Lexapro*] 20 mg PO DAILY 10/31/20 Furosemide [Lasix*] 40 mg PO DAILY 10/31/20 Hyoseyamin 0.125 mg PO Q4H PRN 10/31/20 Insulin Degludec [Tresiba Flextouch U-100] 36 units SQ DAILY 10/31/20 carvediloL [Coreg*] 6.25 mg PO BID 10/31/20 Cefdinir [Omnicef] 300 mg PO BID #14 capsule 11/01/20 Dicyclomine HCl 20 mg PO TID 11/05/20 Insulin Aspart [Novolog Flexpen] 9 unit SQ TID 11/05/20 Losartan Potassium 50 mg PO BID 11/05/20 Omeprazole 20 mg PO DAILY 11/05/20 Thyroid,Pork [[place] Thyroid] 15 mg PO DAILY 11/05/20 Ensure High Protein 237 ml PO Q12H #60 can 11/13/20 - Past Medical/Surgical History Has patient received pneumonia vaccine in the past: Yes Diabetic: Yes -: DM type2 -: Lung Cancer -: Dyslipidemia -: Osteoarthritis -: Hypothyroidism -: Diabetes mellitus type 2 -: bilateral mastectomy -: tummy tuck -: breast reduction -: Appendectomy -: partial hysterectomy Psychosocial/ Personal History: Patient is retired, lives with her and has home health - Family History Brother -: Diabetes Sister -: Diabetes - Social History Smoking Status: Never smoker Smoking therapy provided: No Alcohol use: No CD- Drugs: No Caffeine use: Yes Place of Residence: Home Review of Systems General: Weakness Eyes: Unremarkable ENT: Unremarkable Respiratory: Unremarkable Cardiovascular: Unremarkable Gastrointestinal: As per HPI Genitourinary: Unremarkable Musculoskeletal: Unremarkable Integumentary: Unremarkable Neurological: As per HPI Lymphatics: Unremarkable Physical Examination - Vital Signs Temperature: 98.2 F Blood Pressure: 110/55 Pulse: 59 Respirations: 16 Pulse Ox (%): 95 - Physical Exam General: Alert, In no apparent distress, Oriented x2 HEENT: PERRLA, Other (Mucous membranes dry), EOMI Neck: Supple, 2+ carotid pulse no bruit, JVD not distended Respiratory: Clear to auscultation bilaterally, Normal air movement Cardiovascular: No edema, Normal pulses, Regular rate/rhythm, Normal S1 S2, No gallops, No rubs, No murmurs Capillary refill: <2 Seconds Gastrointestinal: Normal bowel sounds, Soft and benign, Non-distended, No ascites, No tenderness, No masses, No rebound, No guarding Musculoskeletal: No clubbing, No swelling, No contractures, No erythema, No tenderness, No warmth Integumentary: No rashes, No breakdown, No significant lesion, No tenderness/swelling, No erythema, No warmth, No cyanosis Neurological: Normal speech, Normal strength at 5/5 x4 extr, Normal tone, Sensation intact, Cranial nerves 3-12 intact, Normal affect Lymphatics: No axilla or inguinal lymphadenopathy - Studies Laboratory Data (last 24 hrs) 11/14/20 18:02: PT 12.1, INR 1.03, APTT 25.2 11/14/20 18:02: WBC 6.7, Hgb 11.7 L, Hct 36.2 D, Plt Count 134 L 11/14/20 18:02: Sodium 140, Potassium 3.6, BUN 22 H, Creatinine 2.03 H, Glucose 81, Total Bilirubin 0.3, AST 17, ALT 16, Alkaline Phosphatase 69 Assessment and Plan - Problems (Diagnosis) (1) Opioid overdose Current Visit: Yes Status: Acute Qualifiers: Encounter type: initial encounter Injury intent: accidental or unintentional Qualified Code(s): T40.2X1A - Poisoning by other opioids, accidental (unintentional), initial encounter (2) Hypotension Current Visit: Yes Status: Acute Qualifiers: Hypotension type: hypotension due to drug Qualified Code(s): I95.2 - Hypotension due to drugs (3) Renal insufficiency Current Visit: Yes Status: Acute (4) AMS (altered mental status) Current Visit: No Status: Acute Qualifiers: Altered mental status type: somnolence Qualified Code(s): R40.0 - Somnolence (5) Insulin dependent diabetes mellitus Onset Date: 03/05/16 Current Visit: No Status: Chronic (6) Metastatic lung cancer (metastasis from lung to other site) Current Visit: No Status: Chronic Qualifiers: Laterality: unspecified laterality Qualified Code(s): C34.90 - Malignant neoplasm of unspecified part of unspecified bronchus or lung - Plan 1. Patient will be administered due to telemetry for continued stabilization post accidental opioid overdose. Patient will have vitals along with neuro checks and glucose checks. 2. We will continue to hydrate patient to see if patient's renal function increases 3. Patient overall has greatly improved but will continue to monitor patient to ensure she remained stable in that she has no respiratory compromise or does not become hypotensive again. Will recheck labs in the morning to ensure renal function is improving. We will reconciled her meds to see if anything else can be done with pain management versus her chronic metastatic process. Discharge Plan: Home Plan to discharge in: 24 Hours - Advance Directives Does patient have a Living Will: Yes Does patient have a Durable POA for Healthcare: Yes - Code Status/Comfort Care Code Status Assessed: No Critical Care: No Time Spent Managing Pts Care (In Minutes): 80
[2020-11-15 05:45] LABS: Absolute Lymphocytes (CBC) 1.3 K/uL (0.7-4.9); Basophils % 1.1 % (0-1.3); Hematocrit 32.2 % (36.0-45.0); Lymphocytes % 25.1 % (15.3-44.8); MPV 10.3 fL (7.6-11.3); RBC Red Blood Cell Count 4.13 M/uL (3.86-4.86)
[2020-11-15 06:01] VITALS: O2SAT 98
[2020-11-15 06:03] LABS: Potassium 3.8 mmol/L (3.5-5.1)
--- NOTE | 2020-11-15 06:19 | EKG ---
Test Date: 2020-11-14 Test Time: 18:32:02 Stable Cleaner: JESSE MEASUREMENT RESULTS: Intervals: Rate: 57 FL: 160 QRSD: 84 QT: 470 QTc: 457 [place]: P: 99 FL: 160 QRS: -12 T: 57 INTERPRETIVE STATEMENTS: Sinus bradycardia Anterior infarct, age undetermined Abnormal ECG Compared to ECG 11/09/2020 21:21:42 Myocardial infarct finding now present ST (T wave) deviation no longer present Electronically Signed On 11-15-20 06:17:58 [employer] by Maxwell Cruz
[2020-11-15 07:17] LABS: Anisocytosis 1+; Blood Morphology Comment NOTED (NOT SEEN); Platelet Estimate DECR
[2020-11-15 07:18] LABS: Burr Cells FEW
[2020-11-15] MEDS: NA CHLORIDE 0.9% 1,000 ML IV SCH (09:59)
[2020-11-15 12:07] VITALS: BP 135/58; TEMP 97.8
--- NOTE | 2020-11-15 13:40 | P.DS ---
Discharge Date: 11/15/20 Primary Care Provider: Bryn Disposition: DC HOME/HOME HEALTH CARE Discharge Condition: GOOD Reason for Admission: Opiod overdose, Hypotension, AMS, Renal Insufficiency Consultations: Oncologist Brief History of Present Illness: Patient is an 80-year-old female with history of metastatic lung cancer, diabetes mellitus type 2, hypertension, GERD presents to the emergency department for altered mental status and low blood pressure. Patient lives at home with her , has [facility] home health. Patient was recently admitted for similar complaint in addition to large left pleural effusion. Patient was discharged and had outpatient visit for Pleur-Evac placement to the left chest wall which home health has been helping to manage. noted today that she is becoming more confused, also noted that when she was not completely lucid she was fumbling with her pill container and he is not sure if she may actually taken an extra dose of any of her medications. Patient was noted to be mildly hypotensive at home with EMS, given 500 cc normal bolus, mentation improved but still not back at baseline. Blood pressure is in the ER with systolic around 90-100. Patient is alert, oriented x2 with baseline 3. Patient also noted to have been treated for urinary tract infection during her previous admission with 2 blood culture bottles positive for this coagulase negative Staph epidermis and urine culture positive for Staph epidermis. Patient was discharged on Omnicef. Urine from ED still currently pending as patient refused catheterization. ED provider wishes to admit patient for further evaluation and management. When I saw the patient in the ER she was awake, alert, oriented x2. Patient does not appear septic at this time. Blood cultures, lactate, urinalysis pending. Vital signs stable, not tachycardic. Hospital Course: Patient was given IV antibiotic therapy. Patient is doing well at this time. Family wants to go home and we will continue with outpatient follow up. At this time, patient will continue with follow up as an outpatient. Vital Signs/Physical Exam: Temp Pulse Resp BP Pulse Ox 97.8 F 63 18 135/58 L 18 L 11/15/20 12:00 11/15/20 12:00 11/15/20 12:00 11/15/20 12:00 11/15/20 12:00 Laboratory Data at Discharge: WBC 5.0 K/uL (4.3-10.9) D 11/15/20 05:12 Hgb 10.7 g/dL (12.0-15.0) L 11/15/20 05:12 Hct 32.2 % (36.0-45.0) L 11/15/20 05:12 Plt Count 82 K/uL (152-406) L D 11/15/20 05:12 PT 12.1 SECONDS (9.5-12.5) 11/14/20 18:02 INR 1.03 11/14/20 18:02 APTT 25.2 SECONDS (24.3-36.9) 11/14/20 18:02 Sodium 142 mmol/L (136-145) 11/15/20 05:12 Potassium 3.8 mmol/L (3.5-5.1) 11/15/20 05:12 BUN 18 mg/dL (7-18) 11/15/20 05:12 Creatinine 1.34 mg/dL (0.55-1.3) H 11/15/20 05:12 Glucose 154 mg/dL (74-106) H 11/15/20 05:12 Total Bilirubin 0.3 mg/dL (0.2-1.0) 11/14/20 18:02 AST 17 U/L (15-37) 11/14/20 18:02 ALT 16 U/L (12-78) 11/14/20 18:02 Alkaline Phosphatase 69 U/L (45-117) 11/14/20 18:02 Home Medications: Anastrozole [Arimidex*] 1 mg PO DAILY 03/05/16 Clonidine HCl [Catapres] 0.1 mg PO TID 10/31/20 Escitalopram [Lexapro*] 20 mg PO DAILY 10/31/20 Hyoseyamin 0.125 mg PO Q4H PRN 10/31/20 Insulin Degludec [Tresiba Flextouch U-100] 36 units SQ DAILY 10/31/20 carvediloL [Coreg*] 6.25 mg PO BID 10/31/20 Dicyclomine HCl 20 mg PO TID 11/05/20 Insulin Aspart [Novolog Flexpen] 9 unit SQ TID 11/05/20 Losartan Potassium 50 mg PO BID 11/05/20 Omeprazole 20 mg PO DAILY 11/05/20 Thyroid,Pork [[place] Thyroid] 15 mg PO DAILY 11/05/20 Ensure High Protein 237 ml PO Q12H #60 can 11/13/20 Acidophilus/[place] [Lactinex Tablet Chewable] 1 each PO TID #90 tab.chew 11/15/20 Diphenox/Atropine [Lomotil] 1 tab PO BIDP PRN #30 tab 11/15/20 New Medications: Acidophilus/[place] [Lactinex Tablet Chewable] 1 each PO TID #90 tab.chew Diphenox/Atropine [Lomotil] 1 tab PO BIDP PRN #30 tab PRN Reason: Stomach Cramps Patient Discharge Instructions: OK TO DC IV AND DC HOME. FOLLOW-UP WITH PRIMARY CARE PROVIDER IN 1-2 WEEKS. FOLLOW-UP WITH Oncology IN 1-2 WEEKS. RETURN TO THE ER IF symptoms worsen. CALL or TEXT DR. PINA AT [phone] IF ANY QUESTIONS REGARDING HOSPITAL STAY. PLEASE CALL THE FLOOR AT [phone] IF ANY MEDICATION OR NURSING QUESTIONS. Diet: AHA Activity: Fall precautions Followup: Unknown,U [Primary Care Provider] -
[2020-11-15 15:41] LABS: Urine Appearance CLEAR; Urine Bilirubin NEGATIVE (NEG); Urine Blood NEGATIVE (NEG); Urine Color YELLOW; Urine Glucose 1+ (NEG); Urine Protein NEGATIVE (NEG); Urine Specific Gravity 1.015 (1.005-1.030); Urine Urobilinogen 0.2 mg/dL (0.2-1.0); Urine pH 5.5 (5.0-7.0)
[2020-11-15 18:31] LABS: Urine Bacteria <20 /HPF (<20); Urine RBC <5 /HPF (NONE SEEN)
== END 2020-11-15 15:22 | disposition home or self-care (01) ==
LOC: ER 17:50 → ERHOLD 20:42 → 2ND 21:19
PROVIDERS: ADMIT Hospitalist; ATTEND Hospitalist
DX: T40.2X1A Poisoning by other opioids, accidental (unintentional), initial encounter (principal); I95.9 Hypotension, unspecified; R41.82 Altered mental status, unspecified; N28.9 Disorder of kidney and ureter, unspecified; E11.9 Type 2 diabetes mellitus without complications; E03.9 Hypothyroidism, unspecified; C34.90 Malignant neoplasm of unspecified part of unspecified bronchus or lung; Z79.4 Long term (current) use of insulin; E78.5 Hyperlipidemia, unspecified; M19.90 Unspecified osteoarthritis, unspecified site; C79.9 Secondary malignant neoplasm of unspecified site; R94.31 Abnormal electrocardiogram [ECG] [EKG]
CPT/HCPCS: 96361; 93005; 85025 ×2; 81001; 80048 ×2; 36415; 80320; 80329 ×2; 85610; 82947 ×5; 80076; 80307 ×8; 85730; 84484; 70450; 96360; 99285; J7030 ×3; G0378

== ENCOUNTER 2020-11-21 14:24 | Emergency (ER) | payer OTHER, SELFPAY ==
--- OUTSIDE RECORDS SUMMARY | 2020-11-21 14:27 | XMS REPORT | Clinical Summary ---
:1940 Author Organization [facility] Address [address] [place] [address] Care Team Providers Name Role Phone Yanick Clemente MD Primary Care Provider Allergies Active Allergy Reactions Severity Noted Date Comments Iodine Hives 05/18/2017 Iodine And Iodide Containing Products Rash Low Medications Medication Sig Dispensed Refills Start Date End Date Status escitalopram Take 20 mg 0 07/29/2020 Activ e (LEXAPRO) 20 MG by mouth tablet daily. levothyroxine Take 25 mcg 0 11/22/2019 Act loan (SYNTHROID) 25 mcg by mouth tablet every [...] Added automatically from request for francis collado [id number] Encounters Date Type Specialty Care Team Description [...] Anesthesia Event Cardiothoracic Jaskaran Molina, Surgery 09/13/2020 [facility] General Internal Boyareddigari, Syncope a nd [...] Cardiothoracic Juan C, Stephanie Lentz MA 08/30/2020 [facility] Radiology Serafin Schmidt MD 08/30/2020 [facility] Radiology Serafin Schmidt MD 08/30/2020 [facility] Radiology Serafin Schmidt MD 08/30/2020 Office Visit Cardiothoracic Serafin Schmidt Lung mass (Pr imary Dx); Surgery MD Judith Pre-op testing 08/30/2020 Orders Only Cardiothoracic Provider, Stephanie Voss MD 08/30/2020 Travel 08/27/2020 Travel after 11/21/2019 Surgical History Surgery Date Site/Laterality Comments MASTECTOMY BRONCHOSCOPY, USING 09/16/2020 Chest/Left Procedure: F LEXIBLE ELECTROMAGNETIC NAVIGATION [facility] HOSCOPY, ELECTROMAGNETIC NAVIGATIONAL BRO NCHOSCOPY, BIOPSY OF LEFT U PPER LOBE MASS; Surgeon: Serafin Schmidt MD; Locat ion: [facility] OR; Serv ice: Thoracic; Later ality: Left; US, ENDOBRONCHIAL 09/16/2020 N/A Procedure: EBU S; Surgeon: Serafin Schmidt MD; Location: [facility] OR; Service: Thoraci c; Laterality: N/A; THORACENTESIS 09/16/2020 Chest/N/A Procedure: LEFT THORACENTESIS; Surgeon: Serafin Schmidt MD; Location: [facility] OR; Service: Thoraci c; Laterality: N/A; [...] Comments Blood Pressure 144/60 09/19/2020 7:23 AM [facility] Pulse 53 09/19/2020 7:23 AM [facility] Temperature 36.8 C (98.3 F) 09/19/2020 7:23 AM [facility] Respiratory Rate 18 09/19/2020 7:23 AM AT [facility] Oxygen Saturation 95% 09/19/2020 7:23 AM AT [facility] Inhaled Oxygen Concentration - - Weight 67.1 kg (148 lb) 09/13/2020 8:05 AM [facility] Height 157.5 cm (5' 2") 09/13/2020 8:05 AM [facility] Body Mass Index 27.07 09/13/2020 8:05 AM [facility] Plan of Treatment Health Maintenance Due Date Last Done Comments DIABETES: RETINAL EYE EXAM 01[birth year]04/1950 DIABETIC FOOT EXAM 01[birth year]04/1950 COVID-19 VACCINE (1 of 2) 1956 SHINGLES VACCINES (#1) 01/04/1990 65+ PNEUMOCOCCAL VACCINE (1 of 1 - PPSV23) 01/04/2005 INFLUENZA VACCINE 06/01/2020 09/01/2019 Procedures Procedure Name Priority Date/Time Associated Comments Diagnosis POC GLUCOSE Routine 09/19/2020 8:45 Results for this AM [facility] procedure are i n the results section. ESTIMATED GFR Routine 09/19/2020 5:30 Results fo r this AM AT [facility] procedure are i n the results section. CBC HEMOGRAM Routine 09/19/2020 5:30 Results for this AM AT [facility] procedure are i n the results section. BASIC METABOLIC PANEL Routine 09/19/2020 5:30 Re sults for this AM AT [facility] procedure are i n the results section. POC GLUCOSE Routine 09/18/2020 9:02 Results for this PM AT [facility] procedure are i n the results section. POC GLUCOSE Routine 09/18/2020 5:31 Results for this PM [facility] procedure are i n the results section. POC GLUCOSE Routine 09/18/2020 1:09 Results for this PM [facility] procedure are i n the results section. XR CHEST 1 VW PORTABLE STAT 09/18/2020 9:37 R esults for this AM AT [facility] procedure are i n the results section. POC GLUCOSE Routine 09/18/2020 8:31 Results for this AM AT [facility] procedure are i n the results section. POC GLUCOSE Routine 09/18/2020 5:31 Results for this AM AT [facility] procedure are i n the results section. ESTIMATED GFR Routine 09/18/2020 3:00 Results fo r this AM AT [facility] procedure are i n the results section. CBC HEMOGRAM Routine 09/18/2020 3:00 Results for this AM [facility] procedure are i n the results section. BASIC METABOLIC PANEL Routine 09/18/2020 3:00 Re sults for this AM AT [facility] procedure are i n the results section. POC GLUCOSE Routine 09/17/2020 11:54 Results for this PM [facility] procedure are i n the results section. POC GLUCOSE Routine 09/17/2020 4:46 Results for this PM [facility] procedure are i n the results section. POC GLUCOSE Routine 09/17/2020 1:04 Results for this PM [facility] procedure are i n the results section. POC GLUCOSE Routine 09/17/2020 8:19 Results for this AM AT [facility] procedure are i n the results section. ESTIMATED GFR Routine 09/17/2020 4:10 Results fo r this AM AT [facility] procedure are i n the results section. PHOSPHORUS LEVEL Routine 09/17/2020 4:10 Results for this AM AT [facility] procedure are i n the results section. MAGNESIUM LEVEL Routine 09/17/2020 4:10 Results for this AM AT [facility] procedure are i n the results section. BASIC METABOLIC PANEL Routine 09/17/2020 4:10 Re sults for this AM AT [facility] procedure are i n the results section. HC COMPLETE BLD COUNT Routine 09/17/2020 4:10 Re sults for this W/AUTO DIFF AM AT [facility] procedure are i n the results section. POC GLUCOSE Routine 09/16/2020 10:05 Results for this PM [facility] procedure are i n the results section. XR CHEST 1 VW PORTABLE STAT 09/16/2020 8:58 R esults for this PM [facility] procedure are i n the results section. POC GLUCOSE Routine 09/16/2020 5:59 Results for this PM [facility] procedure are i n the results section. XR CHEST 1 VW PORTABLE STAT 09/16/2020 4:27 R esults for this PM [facility] procedure are i n the results section. SURGICAL PATHOLOGY Routine 09/16/2020 4:11 Resul ts for this REQUEST PM [facility] procedure are i n the results section. SURGICAL PATHOLOGY Routine 09/16/2020 4:11 Resul ts for this REQUEST PM [facility] procedure are i n the results section. BAL CELL COUNT AND Routine 09/16/2020 2:46 Resul ts for this DIFFERENTIAL PM [facility] procedure are i n the results section. CYTOLOGY Routine 09/16/2020 1:20 Results for this (NON-GYNECOLOGICAL) PM [facility] procedur e are in REQUEST the results section. CYTOLOGY Routine 09/16/2020 1:20 Results for this (NON-GYNECOLOGICAL) PM [facility] procedur e are in REQUEST the results section. CYTOLOGY Routine 09/16/2020 1:20 Results for this (NON-GYNECOLOGICAL) PM [facility] procedur e are in REQUEST the results section. CYTOLOGY Routine 09/16/2020 1:20 Results for this (NON-GYNECOLOGICAL) PM [facility] procedur e are in REQUEST the results section. [place] AN ELECTIVE Routine 09/16/2020 1:03 Results f or this ENDOTRACHEAL AIRWAY PM AT [facility] procedur e are in the results section. CYTOLOGY Routine 09/16/2020 10:45 Results for this (NON-GYNECOLOGICAL) AM AT [facility] procedur e are in REQUEST the results section. CYTOLOGY Routine 09/16/2020 10:45 Results for this (NON-GYNECOLOGICAL) AM AT [facility] procedur e are in REQUEST the results section. CYTOLOGY Routine 09/16/2020 10:44 Results for this (NON-GYNECOLOGICAL) AM AT [facility] procedur e are in REQUEST the results section. CYTOLOGY Routine 09/16/2020 10:44 Results for this (NON-GYNECOLOGICAL) AM AT [facility] procedur e are in REQUEST the results section. TTE COMPLETE, W Routine 09/16/2020 10:00 Results for this CONTRAST, W DOPPLER AM AT [facility] procedur e are in ([id number]) the results section. POC GLUCOSE Routine 09/16/2020 9:16 Results for this AM [facility] procedure are i n the results section. CT CHEST WO CONTRAST STAT 09/16/2020 8:50 Res ults for this AM [facility] procedure are i n the results section. CYTOLOGY Routine 09/16/2020 6:12 Results for this (NON-GYNECOLOGICAL) AM AT [facility] procedur e are in REQUEST the results section. CYTOLOGY Routine 09/16/2020 6:12 Results for this (NON-GYNECOLOGICAL) AM AT [facility] procedur e are in REQUEST the results section. CYTOLOGY Routine 09/16/2020 6:12 Results for this (NON-GYNECOLOGICAL) AM AT [facility] procedur e are in REQUEST the results section. POC GLUCOSE Routine 09/16/2020 4:25 Results for this AM AT [facility] procedure are i n the results section. ABO AND RH CONFIRMATION Routine 09/16/2020 4:25 Results for this AM AT [facility] procedure are i n the results section. B NATRIURETIC PEPTIDE Routine 09/16/2020 4:25 Re sults for this AM AT [facility] procedure are i n the results section. HC COMPLETE BLD COUNT Routine 09/16/2020 4:25 Re sults for this W/AUTO DIFF AM AT [facility] procedure are i n the results section. ESTIMATED GFR Routine 09/16/2020 4:00 Results fo r this AM AT [facility] procedure are i n the results section. PHOSPHORUS LEVEL Routine 09/16/2020 4:00 Results for this AM AT [facility] procedure are i n the results section. MAGNESIUM LEVEL Routine 09/16/2020 4:00 Results for this AM AT [facility] procedure are i n the results section. BASIC METABOLIC PANEL Routine 09/16/2020 4:00 Re sults for this AM AT [facility] procedure are i n the results section. ANTIBODY IDENTIFICATION Routine 09/16/2020 1:35 Results for this AM AT [facility] procedure are i n the results section. TYPE AND SCREEN Routine 09/16/2020 1:35 Results for this AM [facility] procedure are i n the results section. POC GLUCOSE Routine 09/16/2020 1:06 Results for this AM [facility] procedure are i n the results section. URINE CULTURE Routine 09/15/2020 9:52 Results fo r this PM [facility] procedure are i n the results section. POC GLUCOSE Routine 09/15/2020 8:59 Results for this PM [facility] procedure are i n the results section. URINALYSIS SCREEN AND Routine 09/15/2020 6:55 Re sults for this MICROSCOPY, WITH REFLEX PM [facility] proc edure are in TO CULTURE the results section. POC GLUCOSE Routine 09/15/2020 5:11 Results for this PM [facility] procedure are i n the results section. POC GLUCOSE Routine 09/15/2020 11:52 Results for this AM AT [facility] procedure are i n the results section. POC GLUCOSE Routine 09/15/2020 8:08 Results for this AM AT [facility] procedure are i n the results section. ESTIMATED GFR Routine 09/15/2020 4:50 Results fo r this AM AT [facility] procedure are i n the results section. PHOSPHORUS LEVEL Routine 09/15/2020 4:50 Results for this AM AT [facility] procedure are i n the results section. MAGNESIUM LEVEL Routine 09/15/2020 4:50 Results for this AM AT [facility] procedure are i n the results section. BASIC METABOLIC PANEL Routine 09/15/2020 4:50 Re sults for this AM AT [facility] procedure are i n the results section. HC COMPLETE BLD COUNT Routine 09/15/2020 4:50 Re sults for this W/AUTO DIFF AM AT [facility] procedure are i n the results section. POC GLUCOSE Routine 09/14/2020 9:19 Results for this PM AT [facility] procedure are i n the results section. POC GLUCOSE Routine 09/14/2020 5:11 Results for this PM [facility] procedure are i n the results section. POC GLUCOSE Routine 09/14/2020 1:39 Results for this PM [facility] procedure are i n the results section. HC COMPLETE BLD COUNT STAT 09/14/2020 8:44 Re sults for this W/AUTO DIFF AM AT [facility] procedure are i n the results section. POC GLUCOSE Routine 09/14/2020 7:08 Results for this AM AT [facility] procedure are i n the results section. ESTIMATED GFR STAT 09/14/2020 7:08 Results fo r this AM AT [facility] procedure are i n the results section. BASIC METABOLIC PANEL STAT 09/14/2020 7:08 Re sults for this AM AT [facility] procedure are i n the results section. HC COMPLETE BLD COUNT Routine 09/14/2020 5:30 Re sults for this W/AUTO DIFF AM AT [facility] procedure are i n the results section. HEMOGLOBIN A1C Routine 09/14/2020 5:30 Results f or this AM [facility] procedure are i n the results section. BLOOD CULTURE, AEROBIC Routine 09/13/2020 8:40 R esults for this & ANAEROBIC PM AT [facility] procedure are i n the results section. BLOOD CULTURE, AEROBIC Routine 09/13/2020 8:40 R esults for this & ANAEROBIC PM [facility] procedure are i n the results section. POC GLUCOSE Routine 09/13/2020 7:28 Results for this PM [facility] procedure are i n the results section. TROPONIN Timed 09/13/2020 5:00 Results for this PM [facility] procedure are i n the results section. COVID-19 QUALITATIVE STAT 09/13/2020 3:07 Res ults for this PCR PM [facility] procedure are i n the results section. NM LUNG PERFUSION STAT 09/13/2020 1:26 Result s for this IMAGING PM [facility] procedure are i n the results section. CT CHEST WO CONTRAST Routine 09/13/2020 12:50 Res ults for this PM [facility] procedure are i n the results section. TROPONIN Timed 09/13/2020 11:56 Results for this AM AT [facility] procedure are i n the results section. US DUPLEX VENOUS LOWER STAT 09/13/2020 11:00 R esults for this EXTREMITY RIGHT AM [facility] procedure ar e in the results section. ECG 12-LEAD STAT 09/13/2020 9:59 Results for this AM AT [facility] procedure are i n the results section. MAGNESIUM LEVEL STAT 09/13/2020 8:18 Results for this AM AT [facility] procedure are i n the results section. ESTIMATED GFR STAT 09/13/2020 8:18 Results fo r this AM AT [facility] procedure are i n the results section. TROPONIN STAT 09/13/2020 8:18 Results for this AM AT [facility] procedure are i n the results section. BASIC METABOLIC PANEL STAT 09/13/2020 8:18 Re sults for this AM AT [facility] procedure are i n the results section. PARTIAL THROMBOPLASTIN STAT 09/13/2020 8:18 R esults for this TIME (PTT) AM AT [facility] procedure are i n the results section. PROTHROMBIN TIME WITH STAT 09/13/2020 8:18 Re sults for this INR AM AT [facility] procedure are i n the results section. HC COMPLETE BLD COUNT STAT 09/13/2020 8:18 Re sults for this W/AUTO DIFF AM AT [facility] procedure are i n the results section. ECG 12-LEAD Routine 09/13/2020 8:14 Results for this AM AT [facility] procedure are i n the results section. ECG ED PRELIMINARY Routine 09/13/2020 8:13 Resul ts for this INTERPRETATION AM AT [facility] procedure are in the results section. ECG ED PRELIMINARY Routine 09/13/2020 8:13 Resul ts for this INTERPRETATION AM AT [facility] procedure are in the results section. [id number] Routine 09/12/2020 MRI BRAIN W WO CONTRAST [...] BASE TO Routine 08/16/2020 MID THIGH after 11/21/2019 Results POC glucose (09/19/2020 8:45 AM AT [facility])Only the most recent of24 resultswithin the time period is included. POC glucose 174 (H) 65 - 99 mg/dL [facility] Comment: HOSPITAL Solution Analyst Name: Germaine Vasquez Device ID: [id number] Chartable: [facility] Notified RN Specimen Blood Performing Organization Address City/[facility] Phon e Number [facility] DEPARTMENT OF PATHOLOGY AND [address] [place] [address] [address] Estimated GFR (09/19/2020 5:30 AM AT [facility]IST)Only the most recent of7 resultswithin the time period is included. [facility] Estimated GFR 39 (A) mL/min/1.73 [facility] Comment: HOSPITAL Catergory Units Interpretation [...] in 2014. Specimen Plasma Performing Organization Address City/[facility] Phon e Number [facility] DEPARTMENT OF PATHOLOGY AND [address] [place], [place] [phone] [address] [address] CBC hemogram (09/19/2020 5:30 AM AT [facility]IST)Only the most recent of2 resultswithin the time period is included. Pathologist Sig nature WBC 6.70 4.50 - 11.00 k/uL [facility] RBC 4.61 4.20 - 5.50 m/uL [facility] HGB 12.0 12.0 - 16.0 g/dL [facility] HCT 36.7 (L) 37.0 - 47.0 % [facility] MCV 79.6 (L) 82.0 - 100.0 fL [facility] MCH 26.0 (L) 27.0 - 34.0 pg [facility] MCHC 32.7 31.0 - 37.0 g/dL [facility] RDW - SD 37.4 37.0 - 55.0 fL [facility] MPV 11.4 8.8 - 13.2 fL [facility] Platelet count 207 150 - 400 k/uL [facility] Nucleated RBC 0.00 /100 WBC [facility] Specimen Plasma Performing Organization Address City/[facility] Phon e Number [facility] DEPARTMENT OF PATHOLOGY AND [address] [place] [address] [phone] [address] Basic metabolic panel (09/19/2020 5:30 AM AT [facility])Only the most recent of7 results within the time period is included. Pathologist Sig nature Sodium 140 135 - 148 mEq/L [facility] Potassium 4.0 3.5 - 5.0 mEq/L [facility] Chloride 104 98 - 112 mEq/L [facility] CO2 24 24 - 31 mEq/L [facility] Anion gap 12@ANIO 7 - 15 mEq/L [facility] BUN 12 8 - 23 mg/dL [facility] Creatinine 1.29 (H) 0.50 - 0.90 mg/dL [facility] Glucose 148 (H) 65 - 99 mg/dL [facility] Calcium 8.7 (L) 8.8 - 10.2 mg/dL [facility] Specimen Plasma Performing Organization Address City/[facility] Phon e Number [facility] DEPARTMENT OF PATHOLOGY AND [address] [place] [address] [phone] [address] XR Chest 1 Vw Portable (09/18/2020 9:37 AM AT [facility]IST)Only the most recent of3 results within the [...] Radiology Results Incoming - 09/18/2020 9:45 AM AT [facility]IST EXAMINATION: XR CHEST 1 VW PORTABLE HISTORY: [...] City/State/ZIP Code Phon e Number [facility] [address] [place] [address] CBC with platelet and differential (09/17/2020 4:10 AM AT [facility]K SPECIALIST)Only the most recent of6 resultswithin the time period is included. WBC 8.54 4.50 - 11.00 [facility] RBC 4.85 4.20 - 5.50 [facility] HGB 12.4 12.0 - 16.0 [facility]/dL [facility] HCT 39.2 37.0 - 47.0 % [facility] MCV 80.8 (L) 82.0 - 100.0 [facility] MCH 25.6 (L) 27.0 - 34.0 pg [facility] MCHC 31.6 31.0 - 37.0 [facility] g/dL [facility] RDW - SD 38.2 37.0 - 55.0 fL [facility] MPV 11.8 8.8 - 13.2 fL [facility] Platelet count 195 150 - 400 k/uL [facility] Nucleated RBC 0.00 /100 WBC [facility] Neutrophils 55.1 39.0 - 69.0 % [facility] Lymphocytes 29.2 25.0 - 45.0 % [facility] Monocytes 9.6 0.0 - 10.0 % [facility] Eosinophils 4.6 0.0 - 5.0 % [facility] Basophils 1.1 (H) 0.0 - 1.0 % [facility] Immature granulocytes 0.4Comment: 0.0 - 1.0 % [facility] "Immature HOSPITAL granulocytes" (promyelocytes , myelocytes, metamyelocytes ) Specimen Plasma Performing Organization Address [facility] Phon e Number [facility] DEPARTMENT OF PATHOLOGY AND [address] [place] [phone] Phosphorus level (09/17/2020 4:10 AM AT [facility]K SPECIALIST)Only the most recent of3 resultswithin the time period is included. Pathologist Sig nature Phosphorus 2.4 2.4 - 4.5 mg/dL [facility] Specimen Plasma Performing Organization Address [facility] Phon e Number [facility] DEPARTMENT OF PATHOLOGY AND [address] [place] [phone] Magnesium level (09/17/2020 4:10 AM AT RISK SPECIALIST)Only the most recent of4 resultswithin the time period is included. Pathologist Sig nature Magnesium 1.7 1.6 - 2.4 mg/dL [facility] L Specimen Plasma Performing Organization Address [facility] Phon e Number [facility] DEPARTMENT OF PATHOLOGY AND [address] [place] [phone] [place] [phone] Surgical pathology request (09/16/2020 4:11 PM AT [facility]K SPECIALIST)Only the most recent of2 resultswithin the time period is included. [facility] DEPARTMENT OF PATHOLOGY AND GENOMIC MEDICINE Surgical pathology See link below for [facility] DEPARTMENT O F report PDF Lab Report PATHOLOGY AND GENOMIC MEDICINE Result status This is Supplemental [facility] DEPARTMENT OF Report for PATHOLOGY AND [id number] GENOMIC MEDICINE Specimen Narrative Performed At NEOGENOMICS [facility] DEPARTMENT OF PATHOLOGY AND GENOMIC LUNG NGS MEDICINE [id number] DOS 09/16/2020 Block B1 Performing Organization Address City/[facility] Phon e Number [facility] DEPARTMENT OF PATHOLOGY AND [address] [place] [phone] GENOMIC MEDICINE BAL cell count and differential (09/16/2020 2:46 PM AT [facility]ISK SPECIALIST) BAL specimen source MAX BAL [facility] BAL cell count 0.040 m/mL [facility] Comment: HOSPITAL Normal ranges: Nonsmokers: 0.007 - 0.363 Smokers: 0 - 1.31 73% viability, many rbc's present BAL PAMS 3 % [facility] Comment: [facility] Normal ranges: Nonsmokers: 65 - 100 Smokers: 81 - 100 BAL PMNS 83 % [facility] Comment: [facility] Normal ranges: Nonsmokers: 0 - 3 Smokers: 0 - 2 BAL eosinophils 10 % [facility] Comment: HOSPITAL Normal ranges: Nonsmokers: 0 - 1 Smokers: 0 - 1 BAL lymphs 4 % [facility] Comment: HOSPITAL Normal ranges: Nonsmokers: 0 - 10 Smokers: 0 - 5 Specimen Fluid Narrative Performed At [facility] DEPARTMENT OF PATHOLOGY AND GENOMIC MEDICINE Performing Organization Address City/[facility] Phon e Number [facility] DEPARTMENT OF PATHOLOGY AND [address] [place] [address] 0 GENOMIC MED[address] [address] Cytology (non-gynecological) request (09/16/2020 1:20 PM AT [facility]ISK SPECIALIST)Only the most recent of11 resultswithin the time period is included. [facility] DEPARTMENT OF PATHOLOGY AND GENOMIC MEDICINE Cytology See link below [facility] DEPARTMENT OF (non-gynecological) for PDF Lab PATHOLOGY AND report Report GENOMIC MEDICINE Result status This is Final [facility] DEPARTMENT OF Report for PATHOLOGY AND [id number] GENOMIC MEDICINE Specimen Performing Organization Address City/[facility] Phon e Number [facility] DEPARTMENT OF PATHOLOGY AND [address] [place] [phone] GENOMIC MEDICINE Airway (09/16/2020 1:03 PM AT RISK SPECIALIST) Narrative Performed At Jaskaran Molina MD 09/16/2020 [...] and 3D if needed) (09/16/2020 10:00 AM AT RISK SPECIALIST) Specimen Narrative Performed At [facility] Echo cardiography Report [id number] [facility] [address], [place] [address] Pat.Name: DAHIANA WEATHERS [facility].ID: [id number] .Date: 09/16/2020 Refer.MD: ANALI BURGOS MD Exam Time: 9:19:00 AM Study Type:R outine Echo Height: 62in Weight: 148lb BSA: 1.68 m2 Ag e: 1940,80Y Sex: FEMALE BP: 120/56 HR: 73 bpm Sonogr phr: ODILON Friend, RDCS Pat. Stat.:Inpatient Room: [place] [address] Study Status:Final Echo Event ID:[id number] Order ID: [id number] Reason for Study:Syncope Procedures: 2D Echo, Colorflow [...] of 5 mmHg. MEASUREMENTS: 2D Parasternal Long [place] Ao An 1.9 cm LVPWd 1 cm [...] Radiology Results In - 2019 1:09 PM [facility] [[email or web address]] Echocardiography Report [address] [place] [address] Pat.Name: DAHIANA WEATHERS Pat.I D: [id number] .Date: 09/16/2020 Refer .MD: ANALI BURGOS MD Exam Time: 9:19:00 AM Study Type:Routine Echo Height: 62in Weigh t: 148lb BSA: 1.68 m2 Age: 3 1940,80Y Sex: FEMALE BP: 120/56 HR: 73 bpm Sonog rphr: ODILON Friend, RDCS Pat. Stat.:Inpatient Room: [place] [address] Study Status:Final Echo Event ID:[id number] Order ID: [id number] Reason for Study:Syncope Procedures: 2D Echo, Colorflow [...] of 5 mmHg. MEASUREMENTS: 2D Parasternal Long [place] Ao An 1.9 cm LVPW d 1 [...] City/State/ZIP Code Phon e Number [facility] [address] [place] [address] CT Chest Wo Contrast (09/16/2020 8:50 AM AT RISK SPECIALIST)Only the most recent of2 results within the time period is included. Specimen Narrative Performed At [facility]IN[facility] CHEST WO CONTRAST CLINICAL [...] Radiology Results Incoming - 09/16/2020 9:37 AM AT RISK SPECIALIST EXAMINATION: CT CHEST WO CONTRAST CLINICAL HISTORY: [...] City/State/ZIP Code Phon e Number [facility] [address] [place] [address] ABO and Rh confirmation (09/16/2020 4:25 AM AT RISK SPECIALIST) Pathologist Sig nature ABO grouping A [facility] Rh type NEG [facility] Specimen Plasma Performing Organization Address [facility] Phon e Number [facility] DEPARTMENT OF PATHOLOGY AND [address] [place] [address] [phone] [address] B natriuretic peptide (09/16/2020 4:25 AM AT RISK SPECIALIST) Pathologist Sig nature BNP 56 0 - 100 pg/mL [facility] Specimen Blood Performing Organization Address City/[facility] Phon e Number [facility] DEPARTMENT OF PATHOLOGY AND [address] [place] [address] [phone] [address] Antibody identification (09/16/2020 1:35 AM AT RISK SPECIALIST) Pathologist Sig nature Antibody ID POS, Anti-D [facility] Specimen Performing Organization Address [facility] Phon e Number [facility] DEPARTMENT OF PATHOLOGY AND [address] [place] [address] [phone] [address] Type and screen (09/16/2020 1:35 AM AT RISK SPECIALIST) Pathologist Sig nature ABO grouping A [facility] Rh type NEG [facility] Antibody screen (gel) POS [facility] Specimen Plasma Performing Organization Address [facility] Phon e Number [facility] DEPARTMENT OF PATHOLOGY AND [address] [place] [address] [phone] [address] Urine culture (09/15/2020 9:52 PM AT RISK SPECIALIST) Urine culture Mixed danny <=10-3 col/cc [facility] IST isolate Comment: HOSPITAL Specimen Information Specimen Source: Urine Specimen Site: Catheterized Specimen Urine - Catheterized Performing Organization Address City/[facility]/ZIP [facility] Phon e Number [facility] DEPARTMENT OF PATHOLOGY AND [address] [place] [address] [phone] [address] Urinalysis screen and microscopy, with reflex to culture (09/15/2020 6:55 PM AT RISK SPECIALIST) Specimen site Catheterized [facility] Color, UA Yellow [facility] Appearance, UA Clear [facility] Specific gravity, UA 1.017 1.001 - 1.035 [facility] pH, UA 5.0 5.0 - 8.5 [facility] Protein, UA Negative Negative [facility] Glucose, UA Negative Negative [facility] Ketones, UA Negative Negative [facility] Bilirubin, UA Negative Negative [facility] Blood, UA Negative Negative [facility] Nitrite, UA Negative Negative [facility] Urobilinogen, UA <2.0 <2.0 [facility] Leukocyte esterase, Small (A) Negative [facility] Epithelial cells, UA 2 /HPF [facility] WBC, UA 32 (H) 0 - 4 /HPF [facility] RBC, UA 3 0 - 5 /HPF [facility] Bacteria, UA Few None seen [facility] Yeast, UA None seen [facility] Yeast with None seen [facility] pseudohyphae, [facility] Hyaline casts, UA 20 /LPF [facility] Specimen Urine Performing Organization Address City/[facility] Phon e Number [facility] DEPARTMENT OF PATHOLOGY AND [address] [place] [address] Hemoglobin A1c (09/14/2020 5:30 AM AT RISK SPECIALIST) Pathologist [facility] Hemoglobin A1C 9.1 (H) 4.0 - 5.6 % [facility] Comment: HOSPITAL HbA1c cutoffs for [...] 1 diabetes. Specimen Blood Performing Organization Address City/[facility] Phon e Number [facility] DEPARTMENT OF PATHOLOGY AND [address] [place] [address] Blood culture, aerobic & anaerobic (09/13/2020 8:40 PM AT RISK SPECIALIST)Only the most recent of2 resultswithin the time period is included. Blood culture No growth after 5 days of incubation. JULIAN ALARCON isolate Comment: HOSPITAL Specimen Information Specimen Source: Blood Specimen Site: Left Forearm Specimen Blood Performing Organization Address City/[facility] Phon e Number [facility] DEPARTMENT OF PATHOLOGY AND [address] [place] [address] [phone] [address] Troponin (09/13/2020 5:00 PM AT RISK SPECIALIST)Only the most recent of3 resultswithin the time period is included. [facility] Troponin 0.012 0.000 - 0.040 [facility] Comment: ng/mL HOSPITAL In patients suspected of [...] 0.020 ng/mL Specimen Plasma Performing Organization Address City/State/[facility] Code Phon e Number [facility] DEPARTMENT OF PATHOLOGY AND [address] [place], [place] [phone] [address] COVID-19 qualitative PCR (09/13/2020 3:07 PM AT RISK SPECIALIST) Interpretation Negative results do not prec lude 2019-nCoV infection and should not be used as the sole basis for treatment or other patient management decisions. Negative results must be combined with clinical observations, patient history, and epidemiological RAMIREZ information. [facility] COVID-19 qualitative Not-Detected Not-Detecte [facility] PCR result d [facility] COVID-19 qualitative See link below for [facility] PCR PDF Lab [facility] ReportComment: Case HOSPITAL Number: [id number] Specimen Nasopharyngeal swab Performing Organization Address City/State/ZIP Code Phon e Number [facility] DEPARTMENT OF PATHOLOGY AND [address] [place], [place] [address] GENOMIC MEDICINE [facility] [address] [place] [address] [facility] Lung Perfusion Imaging (09/13/2020 1:26 PM AT RISK SPECIALIST) Specimen Narrative Performed At PROCEDURE: NM LUNG [...] to the CT study report for details. [facility]-[id number] Procedure Note Interface, Radiology Results Incoming - 09/13/2020 1:56 PM AT RISK SPECIALIST PROCEDURE: NM LUNG PERFUSION IMAGING INDICATION: PE [...] to the CT study report for details. [facility]-[id number] Performing Organization Address City/State/ZIP Code Phon e Number [facility] [address] [facility]. [place] [phone] Us duplex venous lower extremity (09/13/2020 11:00 AM AT RISK SPECIALIST) Specimen Narrative Performed At [facility] V[facility] U ltrasound Laboratory Lower Extr emity Venous Report [address] [facility], [address], [place] [address] Pat.Name: DAHIANA WEATHERS Pat.ID: [id number] .Date: 09/13/2020 Refer.MD: CAS PATE MD, RAHEEM PEREZ, ALEX Genao MD Exam Time: 10:32:00 AM Study Type:LE Venous Height: 62in Weight: 148lb BSA: 1.68 m2 Ag e: 1940,80Y Sex: FEMALE Sonogrphr: JAVIER KroomaS, Tong Gutierrez RDMS, RVT Pat. Stat.:Inpatient Room: ED19 Tape Vol: CM, CPT - 4: 31244 Echo Event ID:[id number] Order ID: [id number] Reason for Study:Leg swelling or pain, D [...] Radiology Results In - 2019 3:09 PM [facility] [[email or web address]] Vascular Ultrasound Laboratory Lower Extremity Veno us Report [address] [place] [address] Pat.Name: DAHIANA WEATHERS Pat.I D: [id number] .Date: 09/13/2020 Refer.MD: CAS PATE MD, FARHAT Jurado, ALEX Genao MD Exam Time: 10:32:00 AM Study Type:LE Venous Height: 62in Weigh t: 148lb BSA: 1.68 m2 Age: 3 1940,80Y Sex: FEMALE Sonogrphr: TITO Koroma, Tong Gutierrez RDMS, RVT Pat. Stat.:Inpatient Room: ED19 Tape Vol: CM, CPT - 4: 39319 Echo Event ID:[id number] Order ID: [id number] Reason for Study:Leg swelling or pain, D [...] visualized veins. Results given to Dr. Parsons 8964 PHYSICIAN INTERPRETATION: Venous examination of the right lower ex tremity and left groin demonstrated no evidence of venous throm bosis in the visualized veins. Normal compressibility and augmentation of all veins visualized. FINDINGS: Signed 09/13/2020 03:09 PM Santiago Samson MD, [facility] Performing Organization Address City/State/[facility] e Number [facility] [address] [place] [address] ECG 12 lead (09/13/2020 9:59 AM AT RISK SPECIALIST)Only the most recent of2 resultswithin the time period is included. Pathologist Sig nature Ventricular rate 93 [facility] Atrial rate 93 [facility] [place] interval 128 [facility] QRSD interval 74 [facility] QT interval 392 [facility] QTC interval 487 [facility] QRS axis 1 -35 [facility] T wave axis 48 [facility] EKG impression Sinus rhythm with fusion com plexes-Left axis deviation-Prolonged QT-Abnormal ECG-In automated comparison with ECG of 13-SEP-2020 08:14,-fusion complexes are now present-QRS axis shifted left-Electronically Signed By Courtney STARR, Yanick Raza ([id number]) on [facility]USE 09/13/2020 7:27:19 PM Specimen Narrative Performed At This result has an attachment that is no t available. Performing Organization Address City/State/[facility] Phon e Number [facility] MUSE [address] [place] [address] Partial thromboplastin time, activated (09/13/2020 8:18 AM AT RISK SPECIALIST) PTT 24.1 23.0 - 36.0 [facility] Comment: [facility] PTT therapeutic range for unfractionated heparin is 61.0-112.0 seconds which corresponds to Anti-Xa 0.3-0.7 U/ml. Specimen Blood Performing Organization Address City/[facility] Phon e Number [facility] DEPARTMENT OF PATHOLOGY AND [address] [place] [address] [phone] [address] Prothrombin time with INR (09/13/2020 8:18 AM AT RISK SPECIALIST) Pathologist [facility] Prothrombin time 14.5 11.5 - 14.5 [facility] INR 1.1 [facility] Comment: AGNES The International Normalized Ratio (INR) is a [facility] HOSPITAL monitoring tool for patients who are stable on oral anticoagulant therapy. An INR of 2.0-3.0 is suggested for deep vein thrombosis/pulmonary embolism. Specimen Blood Performing Organization Address [facility] Phon e Number [facility] DEPARTMENT OF PATHOLOGY AND [address] [place] [address] [phone] [address] ECG ED Preliminary Interpretation - Not an Order (09/13/2020 8:13 AM AT RISK SPECIALIST)Only the most recent of2 resultswithin the time period is included. Narrative Performed At Alex Leo MD 6:44 AM ECG ED Preliminary Interpretation - Not an Order Performed by: Alex Leo MD Authorized by: Alex Leo MD ECG reviewed by ED Physician in the abse nce of a ship propeller finisher: yes Interpretation: Interpretation: abnormal Rate: ECG rate: [...] not been HM [facility] interpreted by a [employer] Provider. T he exam was imported into our imaging system. Performing Organization Address City/[facility]/ZIP Code Phon e Number HM [facility] [address] [place] [address] PET/CT Skull Base To Mid Thigh (08/29/2020)Only the most recent of2 results within the time period is included. Narrative Performed At This result has an attachment that is no t available. NM Bone Scan External Study (08/16/2020 10:39 AM CDT) Specimen Narrative Performed At This exam was not acquired at a [facility] t facility and has not been [facility] interpreted by a [employer] Provider. T he exam was imported into our imaging system. Performing Organization Address [facility] Code Phon e Number [facility] [address] [place] [address] CT Chest External Study (08/16/2020 8:43 AM CDT) Specimen Narrative Performed At This exam was not acquired at a Method[facility] t facility and has not been [facility] interpreted by a [employer] Provider. T he exam was imported into our imaging system. Performing Organization Address [facility] Phon e Number [facility] [address] [place] [address] CT Chest Wo Contrast Abdomen Wo Contrast Pelvis Wo Contrast (08/16/2020) Narrative Performed At This result has an attachment that is no t available. after 11/21/2019
--- OUTSIDE RECORDS SUMMARY | 2020-11-21 14:28 | XMS REPORT | Continuity of Care Document ---
:1940 Author Organization [facility] t Address [address] [place] [address] Care Team Providers Name Role Phone Yanick [...] Expiration Date Sour ce Number UHC MEDICAREUHC [id number] 2020 [place] MEDICARE 00:00:00 [facility] [id number] -Present MO Problems Condition Condition Condition Status Onset Resolution Last Treating Co mments Source Name Details Category Date Date Treatment Clinician Date Syncope Syncope Disease Active 2019-11 [place] and and 11-13 [facility] collapse collapse 00:00: st 00 Syncope Syncope Disease Active 2019-11 [place] 11-13 [facility] 00:00: st 00 Lung mass Lung mass Disease Active 2019-11 Overview: [place] 0 Added [facility] 00:00: automatic st 00 ally from request for surgery [id number] Allergies, Adverse Reactions, Alerts Allergy Allergy Status Severity Reaction(s) Onset Inactive Treating Comm ents Source Name Type Date Date Clinician Iodine Propensi Active Rash 2019-11 [place] And ty to 11-13 [facility] Iodide adverse 00:00: st Containi reaction 00 ng s to Products drug Iodine Propensi Active Hives [place] ty to 05-18 [facility] adverse 00:00: st reaction 00 s to drug Social History Social Habit Start Date Stop Date Quantity Comments Source History [facility] Meth odist Alcohol Std Drinks History [facility] Meth odist Alcohol Binge Sex Assigned At [facility] ethodist Tobacco use and 2020-09-18 2020-09-18 Never used [facility] ethodist exposure 00:00:00 00:00:00 Alcohol intake 2020-09-18 2020-09-18 Lifetime [facility] thodist 00:00:00 00:00:00 non-drinker (finding) History SDOH 2020-08-30 2020-08-30 1 [place] [facility] odist Alcohol Frequency 00:00:00 00:00:00 Smoking Status Start Date Stop Date Source Never smoker [place] Method[facility] t Medications Ordered Filled Start Stop Current Ordering Indication Dosage Frequency Signature Comments Components Source Medication Medication Date Date Medication? Clinician (SIG) Name Name hyoscyamine 2019-11 2020- No 1{tbl} Q.24533109 Take 1 [place] sulfate 11-19 [id number] tablet by [facility] 0.125 mg 10:27: 00:00 [...] mL) insulin pen dicyclomine 2019-11 Yes 20mg Q.54527145 Take 20 mg Bejarano (BENTYL) 20 - [id number] by mouth 3 [facility] mg tablet 10:27: [...] st tablet 00 clonIDINE 2020- No .1mg Q.11106680 Take 0.1 Bejarano (CATAPRES) 07-26 11-19 [id number] mg by M ethodi 0.1 MG 00:00: 00:[address] tablet 00 :00 (three) times a day. methscopola 2019- No 5mg QD Take 5 mg Bejarano mine 30 09-19 by mouth [facility] (PAMINE 00:00: 00:[address] FORTE) 5 MG 00 :00 tablet insulin 2019- Yes 8U Q.48901677 Inject 8 Bejarano ASPART 5-26 [id number] Units Method i (NovoLOG) 00:00: 3D under [...] blood 2020-09-19 07:23:34 144 mm[Hg] Gera n [facility] pressure Diastolic blood 2020-09-19 07:23:34 60 mm[Hg] Farnaz on [facility] pressure Heart rate 2020-09-19 07:23:34 53 /min Darci Joya Body temperature 2020-09-19 07:23:34 36.83 Dawna Fuad ton [facility] Respiratory rate 2020-09-19 07:23:34 18 /min Fuad [...] 1 VW PORTABLE 2020-09-18 09:37:58 Eagle Serra [facility] POC GLUCOSE 2020-09-18 08:31:00 Hendrix, Adalid Que [...] 1 VW PORTABLE 2020-09-16 20:58:39 Flory Hoffman [facility] POC GLUCOSE 2020-09-16 17:59:00 Hendrix, Adaliddaniel Bejarano Met hodist XR CHEST 1 VW PORTABLE 2020-09-16 16:27:11 Flory Hoffman [facility] SURGICAL PATHOLOGY 2020-09-16 16:11:00 Hendrix, Adalid Bejarano [facility] REQUEST BAL CELL COUNT AND 2020-09-16 14:46:00 HendrixAdalid farah [facility] DIFFERENTIAL CYTOLOGY 2020-09-16 13:20:00 HendrixAdalid farah Met hodist (NON-GYNECOLOGICAL) REQUEST CA AN ELECTIVE 2020-09-16 13:03:19 Jaskaran Molina Meth odist ENDOTRACHEAL AIRWAY CYTOLOGY 2020-09-16 10:45:00 Hendrix, Adalid Bejarano Met hodist (NON-GYNECOLOGICAL) REQUEST CYTOLOGY 2020-09-16 10:44:00 HendrixAdalid farah Met hodist (NON-GYNECOLOGICAL) REQUEST TTE COMPLETE, W CONTRAST, 2020-09-16 10:00:00 Kendra Penaist W DOPPLER ([id number]) [place] POC GLUCOSE 2020-09-16 09:16:[address] CHEST WO CONTRAST 2020-09-16 08:50:00 Apple Agarwal [facility] [place] CYTOLOGY 2020-09-16 06:12:00 HendrixAdalid farah Met hodist (NON-GYNECOLOGICAL) REQUEST HC COMPLETE BLD COUNT 2020-09-16 04:25:00 Flory Hoffman [facility] W/AUTO DIFF B NATRIURETIC PEPTIDE 2020-09-16 04:25:00 Cipriano Powell [facility] [place] ABO AND RH CONFIRMATION 2020-09-16 04:25:00 Alea Osborneist POC GLUCOSE 2020-09-16 04:25:00 Burgos, Anali Faganist BASIC METABOLIC PANEL 2020-09-16 04:00:00 HoffmanFlory matos [facility] MAGNESIUM LEVEL 2020-09-16 04:00:00 HoffmanFlory matos Me thodist PHOSPHORUS LEVEL 2020-09-16 04:00:00 Flory Hoffman ethodist ESTIMATED GFR 2020-09-16 04:00:00 Burgos, Anali Faganist TYPE AND SCREEN 2020-09-16 01:35:00 Alea Osborne ANTIBODY IDENTIFICATION 2020-09-16 01:35:00 Burgos, Anali Faganist POC GLUCOSE 2020-09-16 01:06:00 Burgos, Anali Joya URINE CULTURE 2020-09-15 21:52:00 Darci Fritz Meth odmilly Ryan POC GLUCOSE 2020-09-15 20:59:00 Ubrgos, Anali Faganist URINALYSIS SCREEN AND 2020-09-15 18:55:00 Nwogu, Kendra Osei on [facility] MICROSCOPY, WITH REFLEX [place] TO CULTURE POC GLUCOSE 2020-09-15 17:11:00 Burgos, Anali Faganist POC GLUCOSE 2020-09-15 11:52:00 Burgos, Anali Bejarano [facility] POC GLUCOSE 2020-09-15 08:08:00 Burgos, Anali Joya HC COMPLETE BLD COUNT 2020-09-15 04:50:00 HoffmanFlory matos [facility] W/AUTO DIFF BASIC METABOLIC PANEL 2020-09-15 04:50:00 HoffmanFlory matos [facility] MAGNESIUM LEVEL 2020-09-15 04:50:00 Flory Hoffman Me thodist PHOSPHORUS LEVEL 2020-09-15 04:50:00 Flory Hoffman ethodist ESTIMATED GFR 2020-09-15 04:50:00 Burgos, Anali Bejarano [facility] POC GLUCOSE 2020-09-14 21:19:00 Burgos, Anali Bejarano [facility] POC GLUCOSE 2020-09-14 17:11:00 Burgos, Anali Bejraano [facility] POC GLUCOSE 2020-09-14 13:39:00 Burgos, Anali Grey Bejarano [facility] HC COMPLETE BLD COUNT 2020-09-14 08:44:00 Kendra Pena on [facility] W/AUTO DIFF [place] BASIC METABOLIC PANEL 2020-09-14 07:08:00 NwoguKendra on [facility] [place] ESTIMATED GFR 2020-09-14 07:08:00 Burgos, Anali Bejarano [facility] POC GLUCOSE 2020-09-14 07:08:00 Burgos, Anali Dorseyh Que Bejarano [facility] HEMOGLOBIN A1C 2020-09-14 05:30:00 Clark Castro [place] [facility] HC COMPLETE BLD COUNT 2020-09-14 05:30:00 Aubrey, Anali Alejandre Que Cal moni [facility] W/AUTO DIFF BLOOD CULTURE, AEROBIC & 2020-09-13 20:40:00 Kendra Pena [facility] ANAEROBIC [place] POC GLUCOSE 2020-09-13 19:28:00 Burgos, Anali Grey Bejarano [facility] TROPONIN 2020-09-13 17:00:00 Darci Fritz Meth jhonathan Johnson R. COVID-19 QUALITATIVE PCR 2020-09-13 15:07:00 Franny Fritz R. NM LUNG PERFUSION IMAGING 2020-09-13 13:26:[address] CHEST WO CONTRAST 2020-09-13 12:50:00 Apple Agarwal [facility] [place] TROPONIN 2020-09-13 11:56:00 Darci Fritz Meth odmilly Johnson R. US DUPLEX VENOUS LOWER 2020-09-13 11:00:00 Farnaz Fritz on [facility] EXTREMITY RIGHT Alex R. ECG 12-LEAD 2020-09-13 09:59:35 Radha Nunn on [facility] HC COMPLETE BLD COUNT 2020-09-13 08:18:00 Gera Fritz n [facility] W/AUTO DIFF Alex R. PROTHROMBIN TIME WITH INR 2020-09-13 08:18:00 Cal Fritz Alex R. PARTIAL THROMBOPLASTIN 2020-09-13 08:18:00 Farnaz Fritz on [facility] TIME (PTT) Alex RTony BASIC METABOLIC PANEL 2020-09-13 08:18:00 Gera Fritzist Alex R. TROPONIN 2020-09-13 08:18:00 CrescenciocharlotteDarci willson Meth odist Alex R. ESTIMATED GFR 2020-09-13 08:18:00 Ahmet Bejarano Meth odist Alex R. MAGNESIUM LEVEL 2020-09-13 08:18:00 [facility] [place] [facility] odist Alex R. ECG 12-LEAD 2020-09-13 08:14:16 Ahmet Bejarano Meth odist Alex R. ECG ED PRELIMINARY 2020-09-13 08:13:[address] [facility] ethodist INTERPRETATION Alex Ryan [id number] 2020-09-12 00:00:00 Provider, Shanika Joya MRI BRAIN [...] Future Scheduled 2020-06-01 INFLUENZA VACCINE Gera horan [facility] Test 00:00:00 [code = INFLUENZA VACCINE] Future Scheduled 2005-01-04 65+ PNEUMOCOCCAL Darci [facility] Test 00:00:00 VACCINE (1 of 1 - PPSV23) [code = 65+ PNEUMOCOCCAL VACCINE (1 of 1 - PPSV23)] Future Scheduled 1990-01-04 SHINGLES VACCINES (#1) [place] [facility] Test 00:00:00 [code = SHINGLES VACCINES (#1)] Future Scheduled 1956 COVID-19 VACCINE (1 of [place] [facility] Test 00:00:00 2) [code = COVID-19 VACCINE (1 of 2)] Future Scheduled 1950-01-04 DIABETES: RETINAL EYE [place] [facility] Test 00:00:00 EXAM [code = DIABETES: RETINAL EYE EXAM] Future Scheduled 1950-01-04 DIABETIC FOOT EXAM [place] [facility] Test 00:00:00 [code = DIABETIC FOOT EXAM] Encounters Start End Encounter Admission Attending Care Care Encounter Source Date/Time Date/Time Type Type Clinicians Facility Department ID 2020-10-18 2020-10-18 Office Kale [facility] [id number] 20 16:20:54 16:53:41 Visit Thomas Hayward [id number] [place] [id number] [id number] 2020-09-13 2020-09-19 Inpatient HENDRIX, [facility] 064 [id number] [place] 00:00:00 00:00:00 ADALID [address] 2020-08-30 2020-08-30 Outpatient SCHMIDT, [facility] [id number] 456 [place] 00:00:00 00:00:00 EDWARD [address] 2020-08-30 2020-08-30 Outpatient SCHMIDT, [facility] [id number] [place] 00:00:00 00:00:00 EDWARD [address] 2020-08-30 2020-08-30 Outpatient SCHMIDT, [facility] [id number] [place] 00:00:00 00:00:00 EDWARD [address] 2020-08-30 2020-08-30 Outpatient SCHMIDT, [facility] [id number] [place] 00:00:00 00:00:00 EDWARD [address] 2016-06-15 2016-06-15 Emergency [facility] 064 [id number] [place] 00:00:00 00:00:[address] 2016-06-09 2016-06-11 Outpatient POPPY PRADO [facility] 012 [id number] [place] 00:00:00 00:00:[address] 2015-12-31 2015-12-31 Outpatient ARIEL [facility] 944 [id number] 224 [place] 00:00:00 00:00:00 BRETT [address] 2015-12-30 2015-12-30 Outpatient ARIEL [facility] 337 [id number] 196 [place] 00:00:00 00:00:00 BRETT [address] Results Test Description Test Time Test Comments Results Result Comments Source Surgical pathology request 2020-10-07 16:51:20 Test Item Value Reference Range Interpretation Comme nts Case number (test code = 8245014) [id number] Surgical pathology report (test code See link below for PDF Watch Supervisor ort = 2255) Result status (test code = 3394613) This is Supplemental Report for [id number] JAIRO (test code = JAIRO) [id number] 09/16/2020Block B1 [facility] [id number] 08:45:47 Test Item Value Reference Range Interpretation Comments POC glucose (test 174 mg/dL 65-99 H Clinical Staff Anesthesiologist N paulette: Shittu code = 82002-2) KeyaunmiGoomeokarlos Device ID: [id number] able: [facility] 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 Interpretation Abnormal (test code = 12963-6) [facility] prgbuebl3161-41-94 08:05:46 Test Item Value Reference Range Interpretation Comments WBC (test code = 04474-5) 6.70 4.50- 11.00 k/uL RBC (test code = 12865-8) 4.61 m/uL 4.2-5.5 HGB (test code = 718-7) 12.0 g/dL 12-16 HCT (test code = 4544-3) 36.7 % 37-47 L MCV (test code = 787-2) 79.6 fL 82-100 L MCH (test code = 785-6) 26.0 pg 27-34 L MCHC (test code = 786-4) 32.7 g/dL 31-37 RDW - SD (test code = 19615-0) 37.4 fL 37-55 MPV (test code = 54963-9) 11.4 fL 8.8-13.2 Platelet count (test code = 207 150- 400 k/uL 00469-8) Nucleated RBC (test code = 0.00 /100 WBC 23220-8) Lab Interpretation (test code = Abnormal 93382-3) [place] MethodistBasic metabolic worje6974-94-36 07:59:07 Test Item Value Reference Range Interpretation Comments Sodium (test code = 2951-2) 140 135- 148 mEq/L Potassium (test code = 2823-3) 4.0 3.5- 5.0 mEq/L Chloride (test code = 2075-0) 104 98- 112 mEq/L CO2 (test code = 2027-9) 24 24- 31 mEq/L Anion gap (test code = 37778-4) 12@ANIO 7- 15 mEq/L BUN (test code = 3094-0) 12 mg/dL 8-23 Creatinine (test code = 2160-0) 1.29 mg/dL 0.5-0.9 H Glucose (test code = 2345-7) 148 mg/dL 65-99 H Calcium (test code = 66130-6) 8.7 mg/dL 8.8-10.2 L Lab Interpretation (test code = Abnormal 38683-1) [place] MethodistEstimated [id number] 07:59:07 Test Item Value Reference Range Interpretation Comments Estimated GFR (test 39 mL/min/1.73 m2 Jude Derrick bella Units code = 5488) InterpretationG 1 >=90 Claudia l or highG2 60-89 Mildly decrease dG3a 45-59 Mil dly to moderately decr fwhntU7k 30-44 Moderately to s everely decreasedG4 15-29 Severe ly decreasedG5 <15 Kidney skye lureThe eGFR was calcul ated using the Chron ic Kidney Disease Epidemiology Collaboration ( CKD-EPI) equation. Interpretation is based on recommendati ons of the National Ki dney Foundation-Kidn ey Disease Outcome s Quality Initiat lona (NKF-KDOQI) pub lished in 2013. Lab Interpretation Abnormal (test code = 26060-5) [place] MethodistBlood culture, aerobic & nwwrkkuyr2049-55-25 02:03:08 Test Item Value Reference Range Interpretation Comments Blood culture No growth Specimen isolate (test after 5 days InformationSpe cimen code = 600-7) of Source: BloodS pecimen incubation. Site: Left Fore arm [place] MethodistXR Chest 1 Vw Cbefhzjz6201-68-50 09:42:47Hm Interface, Radiology Results Incoming - 09/18/2020 [...] of cervicothoracic spine partially visualized.1D2RAD_PS02[place] MethodistCytology (non-gynecological) [id number] 20:12:25 Test Item Value Reference Range Interpretation Comments Case number (test code = [id number]) Cytology See link below for (non-gynecological) PDF Lab Report report (test code = 1178) Result status (test code This is Final Report = [id number]) for [id number] [place] MethodistMagnesium [id number] 08:07:08 Test Item Value Reference Range Interpretation Comments Magnesium (test code = 52813-1) 1.7 mg/dL 1.6-2.4 [place] MethodistPhosphorus [id number] 08:07:05 Test Item Value Reference Range Interpretation Comments Phosphorus (test code = 2777-1) 2.4 mg/dL 2.4-4.5 [place] MethodistCBC with platelet and ttjyvfukykue1295-72-57 06:16:54 Test Item Value Reference Range Interpretation Comments WBC (test code = 15331-2) 8.54 4.50- 11.00 k/uL RBC (test code = 34076-6) 4.85 m/uL 4.2-5.5 HGB (test code = 718-7) 12.4 g/dL 12-16 HCT (test code = 4544-3) 39.2 % 37-47 MCV (test code = 787-2) 80.8 fL 82-100 L MCH (test code = 785-6) 25.6 pg 27-34 L MCHC (test code = 786-4) 31.6 g/dL 31-37 RDW - SD (test code = 38.2 fL 37-55 64656-9) MPV (test code = 92739-6) 11.8 fL 8.8-13.2 Platelet count (test code 195 150- 400 k/uL = 89624-3) Nucleated RBC (test code 0.00 /100 WBC = 45492-6) Neutrophils (test code = 55.1 % 39-69 65040-3) Lymphocytes (test code = 29.2 % 25-45 93630-1) Monocytes (test code = 9.6 % 0-10 61087-3) Eosinophils (test code = 4.6 % 0-5 54840-6) Basophils (test code = 1.1 % 0-1 H 77620-3) Immature granulocytes 0.4 % 0-1 "Immat ure (test code = 16212-9) granul ocytes" (promyelocytes, myelocytes, metamyelocytes) Lab Interpretation (test Abnormal code = 60924-4) Darci JoyaUrine mswdtim7286-11-80 00:54:02 Test Item Value Reference Range Interpretation Comments Urine culture Mixed danny Specimen isolate (test <=10-3 col/cc InformationSp ecimen code = 54637-3) Source: [facility] cell count and zfxseqcuhmdl6900-43-44 21:40:34 Test Item Value Reference Range Interpretation Comments BAL specimen source MAX BAL (test code = 20788-9) BAL cell count (test 0.040 m/mL Normal ranges: code = 40544-9) Nonsmokers: 0.007 - 0.363 Smokers: 0 - 1. 31 73% viability, many rbc's present BAL PAMS (test code = 3 % Normal ranges: 77668-0) Nonsmokers: 65 - 100 Smokers: 81 - 1 00 BAL PMNS (test code = 83 % Normal ranges: 9306-2) Nonsmokers: 0 - 3 Smok ers: 0 - 2 BAL eosinophils (test 10 % Normal ranges: code = 56305-3) Nonsmokers: 0 - 1 Smok ers: 0 - 1 BAL lymphs (test code = 4 % Norm al ranges: 01817-6) Nonsmokers: 0 - 10 Smo kers: 0 - 5 JAIRO (test code = JAIRO) BAL MAX [place] MethodistTransthoracic Echocardiogram Complete, (w Contrast, Strain and 3D if needed)2020-09-16 13:08:00Interface, Radiology Results In - 09/16/2020 1:09 PM [facility] Echocardiography Report [id number] [address] Pat.Name: FRANTZ WEATHERS Pat.ID: [id number].Date: 09/16/2020 Refer.MD: ANALI BURGOS MDExam Time: 9:19:00 AM Study Type:Routine Echo Height: 62in Weight: 148lb BSA: 1.68 m2 Age: 3 1940,80Y Sex: FEMALE BP: 120/56 HR: 73 bpm Sonogrphr: Aylin Rodriguez, ODIL[place], [facility] Pat. Stat.:Inpatient Room: [place] [address] Study Status:Final Echo Event ID:[id number] Order ID: [id number] Reason for Study:Syncope Procedures: 2D Echo, Colorflow [...] of 5 mmHg. MEASUREME NTS: 2DParasternal Long Stirling AoAn 1.9 cm LVPWd 1 cm Ao [...] SVi 41 ml/m2 TV Pressure Gradient TV JnMyq711 cm/s TV PG 27 mmHg WALL MOTION:-------- RESTING WALL MOTION:Basal Inferoseptal wall is hypokinetic. Normal wall motion in allother carrington.Wall Index = 1.1Signed 09/16/2020 01:08 PMMarie aTpia IquhlaqmkOeeeix3945-99-74 13:03:19 Jaskaran Molina MD 09/16/2020 1:05 PMAirway [...] Attempts at Approach: 1[facility] MethodistCT Chest Wo Huxlgijs1892-31-97 09:34:07Hm Interface, Radiology Results Incoming - 09/16/2020 [...] susp icious for malignant adenopathy. 1D2RAD_PS02[place] MethodistAntibody ohjhqsgfzhuhgb0139-24-28 06:07:00 Test Item Value Reference Range Interpretation Comments Antibody ID (test code = 27488-3) POS, Anti-D [place] MethodistABO and Rh bjmkavzawnbl7561-95-96 06:06:00 Test Item Value Reference Range Interpretation Comments ABO grouping (test code = 883-9) A Rh type (test code = 22498-9) NEG [place] MethodistB natriuretic lvsyzeg9668-81-71 05:53:02 Test Item Value Reference Range Interpretation Comments BNP (test code = 29837-0) 56 pg/mL 0-100 [place] MethodistType and azoylr5587-33-81 03:03:00 Test Item Value Reference Range Interpretation Comments ABO grouping (test code = 883-9) A Rh type (test code = 07956-5) NEG Antibody screen (gel) (test code = POS 890-4) [place] MethodistUrinalysis screen and microscopy, with reflex to culture 2020-09-15 22:06:01 Test Item Value Reference Range Interpretation Comments Specimen site (test code = Catheterized 4366022) Color, UA (test code = 5778-6) Yellow Appearance, UA (test code = Clear 5767-9) Specific gravity, UA (test code 1.017 1.001-1.035 = 5811-5) pH, UA (test code = 5803-2) 5.0 5.0-8.5 Protein, UA (test code = Negative Negative 27154-7) Glucose, UA (test code = Negative Negative 53364-3) Ketones, UA (test code = 2514-8) Negative Negative Bilirubin, UA (test code = Negative Negative 5770-3) Blood, UA (test code = 5794-3) Negative Negative Nitrite, UA (test code = 5802-4) Negative Negative Urobilinogen, UA (test code = <2.0 <2.0 37116-6) Leukocyte esterase, UA (test Small Negative A code = 5799-2) Epithelial cells, UA (test code 2 /HPF = 5787-7) WBC, UA (test code = 5821-4) 32 0- 4 /HPF H RBC, UA (test code = 45582-5) 3 0- 5 /HPF Bacteria, UA (test code = Few None seen 63535-2) Yeast, UA (test code = 06404-5) None seen Yeast with pseudohyphae, UA None seen (test code = 99381-9) Hyaline casts, UA (test code = 20 /LPF 5796-8) Lab Interpretation (test code = Abnormal 77617-3) Darci JoyaHemoglobin [id number] 11:41:57 Test Item Value Reference Range Interpretation Comments Hemoglobin A1C (test 9.1 % 4-5.6 H HbA1c c utoffs for code = 96887-4) diagnosing diabetes:4.0% - 5.6% = normal5.7% - 6.4% = increased risk for diabetes (prediabetes)9> =6.5% = yfrgbwuy9Spll s for glycemic contro l (ADA 2016)< 7.0% Ta rget for non adults with ganesh betes. More or less stringent targe ts may be appropriate for individual tamar ents. <7.5% Target for Children and adolescents wit h type 1 diabetes. Lab Interpretation (test Abnormal code = 59262-3) Darci JoyaCOVID-19 qualitative [id number] 20:21:50 Test Item Value Reference Range Interpretation Comments Interpretation (test Negative results do code = 7040729) not preclude 2019-nCoV infection and should not be used as the sole basis for treatment or other patient management decisions. Negative results must be combined with clinical observations, patient history, and epidemiological information. COVID-19 qualitative Not-Detected Not-Detected PCR result (test code = 98972-0) COVID-19 qualitative See link below for C ase Number: PCR (test code = PDF Lab Report [id number]) Darci Mejía 12 owkl9939-11-18 19:27:22 Test Item Value Reference Range Interpretation Comments Ventricular rate (test 93 code = 253) Atrial rate (test code 93 = 255) CA interval (test code 128 = 266) QRSD [...] are now present-QRS axis shifted left- Darci DaleBjnrbqkbkHgkowxyl1543-07-88 18:10:56 Test Item Value Reference Range Interpretation Comments Troponin (test code 0.012 ng/mL 0-0.04 In patie nts suspected = 90149-6) of having a rochelle cardial infarction, nelly [...] decreased by le ss than 0.020 ng/mL [facility] duplex venous lower zulrntoev2823-51-83 15:09:00Interface, Radiology Results In - 09/13/2020 3:09 PM [facility] Vascular Ultrasound Laboratory Lower Extremity Venous Eeagtn[address] [address] Pat.Name: FRANTZ WEATHERS Pat.ID: [id number] .Date: 09/13/2020 Refer.MD: CAS PATE MD, ALEX FRITZ MDExraven Time: 10:32:00 AM Study Type:LE Venous Height: 62in Weight: 148lb BSA: 1.68 m2 Age: 3 1940,80Y Sex: FEMALE Sonogrphr: Freddie Wright, TITO, Tong Gutierrez, RDMS, RVTPat. Stat.:Inpatient Room: ED19 Tape Vol: CM, CPT - 4: 84750 Echo Event ID:[id number] Order ID: [id number] Reason for Study:Leg swelling or pain, DVT [...] 09/13/2020 03:09 PMSantiago Samson MD, RPVI Darci JoyaWI Lung Perfusion Uytonem2658-41-28 13:53:35Hm Interface, Radiology Results 09/13/2020 1:56 PM CSTPROCEDURE: WI LUNG PERFUSION IMAGINGINDICATION: PE suspected low pretest [...] refer to the CT study report for details.[facility]-[id number] AnabaptistPartial thromboplastin time, activated 2020-09-13 09:09:09 Test Item Value Reference Range Interpretation Comments PTT (test code = 24.1 23.0- 36.0 [place] [address]-1) unfractionated heparin is61.0-112.0 se conds which corresponds to Anti-Xa0.3-0.7 U/ml. Darci JoyaProthrombin time with MGK6808-27-13 09:08:33 Test Item Value Reference Range Interpretation Comments Prothrombin time (test 14.5 11.5- 14.5 sec code = 5902-2) INR (test code = 1.1 The Interna tional 34918-8) Normalized Rati o (INR) is a therapeutic m onitoring tool for patien ts who are stable on oral anticoagulant t herapy. An INR of 2.0-3.0 is suggested for d eep vein thrombosis/pulm onary embolism. [facility] ED Preliminary Interpretation - Not an Rdwef4571-53-70 08:13:29 Test Item Value Reference Range Interpretation Comments JAIRO (test code = JAIRO) Alex Fritz MD 09/14/2020 6:44 [facility] ED Preliminary Interpretation - Not an OrderPerformed by: Alex Fritz MDAuthorized by: Alex Fritz MD ECG reviewed by ED Physician in the absence of a fraud representative: yes Interpretation: Interpretation: abnormal Rate: ECG rate: 88 ECG rate assessment: normal Rhythm: Rhythm: sinus rhythm Ectopy: Ectopy: PVCs PVCs: FrequentQRS: QRS axis: Normal QRS intervals: NormalConduction: Conduction: normal ST segments: ST segments: NormalT waves: T waves: normal Comments: Prolonged QT Lab Interpretation Abnormal (test code = 92594-3) [facility] MethodistCT Chest External Rmixc3477-73-43 10:45:49This exam was not acquired at a [facility] facility and has not been interpreted by a [facility] Provider. The exam was imported into our imaging system.[facility] External [id number] 10:45:27This exam was not acquired at a [facility] facility and has not been interpreted by a [facility] Provider. The exam was imported into our imaging system.[facility] Whole Body External [id number] 10:45:06This exam was not acquired at a [facility] facility and has not been interpreted by a [facility] Provider. The exam was imported into our imaging system.[facility]
[2020-11-21] MEDS ORDERED: Ringers Lactate 1,000 ML IV ONE (16:47)
[2020-11-21] MEDS ORDERED: TRAMADOL HCL 50 MG TAB ONE (16:49)
[2020-11-21] MEDS ORDERED: PROMETHAZINE INJ 25 MG/ML AMP ONE (17:20)
--- NOTE | 2020-11-21 18:03 | ER ---
Nurse's Notes [facility] Name: Dahiana Smith Age: 80 yrs Sex: Female : 1940 Arrival Date: 11/21/2020 Time: 14:28 Bed 25 Private MD: Best Clemente Diagnosis: Dehydration;Vomiting;Diarrhea, unspecified Presentation: 11/21 14:32 Chief complaint: Patient states: Diarrhea last night. Weak and dehydration. Sent in for ll1 IV fluids by Dr. Delvalle. Coronavirus screen: Client denies travel out of the [place] in the last 14 days. At this time, the client does not indicate any symptoms associated with coronavirus-19. Ebola Screen: Patient denies travel to an Ebola-affected area in the 21 days before illness onset. No acute neurological deficit is noted. Initial Sepsis Screen: Does the patient meet any 2 criteria? No. Patient's initial sepsis screen is negative. Does the patient have a suspected source of infection? Yes: Other: diarrhea. Risk Assessment: Do you want to hurt yourself or someone else? Patient reports no desire to harm self or others. Onset of symptoms was November 20, 2020. 14:32 Method Of Arrival: Wheelchair ll1 14:32 Acuity: DULCE 3 ll1 Stroke Activation: Symptom onset > 6 hours Physician: Stroke Attending; Name: ; Notified At: ; Arrived At: Physician: Chief Stroke Resident; Name: ; Notified At: ; Arrived At: Physician: Stroke Resident; Name: ; Notified At: ; Arrived At: Physician: ED Attending; Name: ; Notified At: ; Arrived At: Physician: ED Resident; Name: ; Notified At: ; Arrived At: Historical: - Allergies: 14:34 Iodine; ll1 - PMHx: 14:34 Cancer; Diabetes - IDDM; ll1 - Immunization history:: Flu vaccine is up to date. - Social history:: Smoking status: Patient denies any tobacco usage or history of. Screenin:50 Abuse screen: Denies threats or abuse. Nutritional screening: No deficits noted. vg1 Tuberculosis screening: No symptoms or risk factors identified. Fall Risk No fall in past 12 months (0 pts). No secondary diagnosis (0 pts). IV access (20 points). Ambulatory Aid- None/Bed Rest/Nurse Assist (0 pts). Gait- Weak (10 pts.). Mental Status- Oriented to own ability (0 pts). Total Almonte Fall Scale indicates Low Risk Score (25-44 pts). Fall prevention measures have been instituted. Side Rails Up X 2 Placed close to Nursing Station Family Present and informed to notify staff if they need to leave bedside. Assessment: 15:50 General: Appears in no apparent distress. uncomfortable, Behavior is calm, cooperative. vg1 Pain: Complains of pain in left side of chest Pain currently is 5 out of 10 on a pain scale. Neuro: Level of Consciousness is awake, alert, obeys commands, Oriented to person, place, time, situation. Cardiovascular: Patient's skin is warm and dry. Respiratory: Airway is patent Respiratory effort is even, unlabored, Respiratory pattern is regular, symmetrical. GI: Reports diarrhea. : No signs and/or symptoms were reported regarding the genitourinary system. EENT: No signs and/or symptoms were reported regarding the EENT system. Derm: Skin is pink, warm \T\ dry. Musculoskeletal: Circulation, motion, and sensation intact. 16:43 Reassessment: Patient appears in no apparent distress at this time. Patient and/or vg1 family updated on plan of care and expected duration. Pain level reassessed. Patient is alert, oriented x 3, equal unlabored respirations, skin warm/dry/pink. 17:00 Reassessment: Patient actively vomiting. vg1 18:03 Reassessment: Patient appears in no apparent distress at this time. Patient and/or vg1 family updated on plan of care and expected duration. Pain level reassessed. Patient is alert, oriented x 3, equal unlabored respirations, skin warm/dry/pink. Patient states feeling better. 18:05 Reassessment: Received VO from Georges ANDREW to administer Heparin flush 500 units IVP x1. vg1 Vital Signs: 14:32 BP 170 / 80; Pulse 87; Resp 16; Temp 98.5; Pulse Ox 96% on R/A; Weight 61.23 kg; Height ll1 5 ft. 2 in. (157.48 cm); Pain 5/10; 16:02 BP 171 / 89; Pulse 85; Resp 18; Pulse Ox 93% on R/A; vg1 17:00 BP 180 / 89; Pulse 94; Resp 18; Pulse Ox 93% on R/A; vg1 18:10 BP 149 / 80; Pulse 93; Resp 18; Pulse Ox 95% on 2 lpm NC; vg1 14:32 Body Mass Index 24.69 (61.23 kg, 157.48 cm) ll1 ED Course: 14:28 Patient arrived in ED. mr 14:28 Best Clemente MD is Private Physician. mr 14:34 Triage completed. ll1 14:35 Arm band placed on. ll1 15:23 Georges Cooper PA is PHCP. jr8 15:23 Ralph Ceron MD is Attending Physician. jr8 15:26 Melissa Otoole, JONAS is Primary Nurse. vg1 16:02 Patient has correct armband on for positive identification. Bed in low position. Call vg1 light in reach. Side rails up X2. 16:40 Accessed Port-a-Cath. Clean \T\ dry. Dressing intact. Flushes easily. vg1 18:02 Best Clemente MD is Referral Physician. jr8 18:11 No provider procedures requiring assistance completed. vg1 18:14 Patient has a triple lumen central line. vg1 Administered Medications: 16:41 Drug: Ringers - Lactated Ringers Solution 1000 ml Route: IV; Rate: bolus; Site: left vg1 subclavian; 18:03 Follow up: IV Status: Completed infusion; IV Intake: 1000ml vg1 16:43 Drug: traMADol 50 mg Route: PO; vg1 18:03 Follow up: Response: No adverse reaction vg1 17:15 Drug: Promethazine 6.25 mg Route: IVP; Site: left subclavian; vg1 18:03 Follow up: Response: Nausea is decreased vg1 17:15 CANCELLED (Duplicate Order): Phenergan 6.25 mg IVP once vg1 18:10 Drug: HEParin Flush 500 units Route: IVP; Site: left subclavian; vg1 18:10 Follow up: Response: Medication administered at discharge. vg1 Intake: 18:03 IV: 1000ml; Total: 1000ml. vg1 Outcome: 18:02 Discharge ordered by . jr8 18:13 Discharged to home via wheelchair, with family. vg1 18:13 Condition: stable 18:13 Discharge instructions given to patient, family, Instructed on discharge instructions, follow up and referral plans. Demonstrated understanding of instructions, follow-up care. 18:40 Patient left the ED. vg1 Signatures: Cher Ridley mr Georges Cooper PA PA jr8 Melissa Otoole RN RN vg1 Miri Leyva RN RN ll1
--- NOTE | 2020-11-21 18:03 | EDPHYS ---
Physician Documentation [facility] Name: Dahiana Smith Age: 80 yrs Sex: Female : 1940 Arrival Date: 11/21/2020 Time: 14:28 Bed 25 Private MD: Best Clemente ED Physician Ralph Ceron HPI: 11/21 17:57 This 80 yrs old Female presents to ER via Wheelchair with complaints of jr8 Weakness. 17:58 Patient with history of stage 4 cancer. Recently diagnosed with COVID. Has been having jr8 bouts of vomiting, diarrhea, and poor appetite. Had been getting fluids from cancer center until recent covid diagnosis. Came to ED for fluids today because she still was feeling weak and not eating well . Severity of symptoms: At their worst the symptoms were moderate in the emergency department the symptoms are unchanged. The patient has experienced similar episodes in the past, a few times. The patient has been recently seen by a physician:. Historical: - Allergies: 14:34 Iodine; ll1 - PMHx: 14:34 Cancer; Diabetes - IDDM; ll1 - Immunization history:: Flu vaccine is up to date. - Social history:: Smoking status: Patient denies any tobacco usage or history of. ROS: 17:58 Eyes: Negative for injury, pain, redness, and discharge, ENT: Negative for injury, jr8 pain, and discharge, Neck: Negative for injury, pain, and swelling, Cardiovascular: Negative for chest pain, palpitations, and edema, Respiratory: Negative for shortness of breath, cough, wheezing, and pleuritic chest pain, Back: Negative for injury and pain, MS/Extremity: Negative for injury and deformity, Skin: Negative for injury, rash, and discoloration, Neuro: Negative for headache, numbness, tingling, and seizure. 17:58 Abdomen/GI: Positive for nausea, vomiting, and diarrhea, Negative for abdominal pain. Exam: 17:58 Eyes: Pupils equal round and reactive to light, extra-ocular motions intact. Lids and jr8 lashes normal. Conjunctiva and sclera are non-icteric and not injected. Cornea within normal limits. Periorbital areas with no swelling, redness, or edema. ENT: Nares patent. No nasal discharge, no septal abnormalities noted. Tympanic membranes are normal and external auditory canals are clear. Oropharynx with no redness, swelling, or masses, exudates, or evidence of obstruction, uvula midline. Mucous membranes moist. Neck: Trachea midline, no thyromegaly or masses palpated, and no cervical lymphadenopathy. Supple, full range of motion without nuchal rigidity, or vertebral point tenderness. No Meningismus. Cardiovascular: Regular rate and rhythm with a normal S1 and S2. No gallops, murmurs, or rubs. Normal PMI, no JVD. No pulse deficits. Respiratory: Lungs have equal breath sounds bilaterally, clear to auscultation and percussion. No rales, rhonchi or wheezes noted. No increased work of breathing, no retractions or nasal flaring. Abdomen/GI: Soft, non-tender, with normal bowel sounds. No distension or tympany. No guarding or rebound. No evidence of tenderness throughout. Skin: Warm, dry with normal turgor. Normal color with no rashes, no lesions, and no evidence of cellulitis. MS/ Extremity: Pulses equal, no cyanosis. Neurovascular intact. Full, normal range of motion. Neuro: Awake and alert, GCS 15, oriented to person, place, time, and situation. Cranial nerves II-XII grossly intact. Motor strength 5/5 in all extremities. Sensory grossly intact. Vital Signs: 14:32 BP 170 / 80; Pulse 87; Resp 16; Temp 98.5; Pulse Ox 96% on R/A; Weight 61.23 kg; Height ll1 5 ft. 2 in. (157.48 cm); Pain 5/10; 16:02 BP 171 / 89; Pulse 85; Resp 18; Pulse Ox 93% on R/A; vg1 17:00 BP 180 / 89; Pulse 94; Resp 18; Pulse Ox 93% on R/A; vg1 18:10 BP 149 / 80; Pulse 93; Resp 18; Pulse Ox 95% on 2 lpm NC; vg1 14:32 Body Mass Index 24.69 (61.23 kg, 157.48 cm) ll1 MDM: 15:35 Patient medically screened. jr8 17:58 Data reviewed: vital signs, nurses notes. Data interpreted: Pulse oximetry: on room air jr8 is 93 %. Interpretation: acceptable. Counseling: I had a detailed discussion with the patient and/or guardian regarding: the historical points, exam findings, and any diagnostic results supporting the discharge/admit diagnosis, the need for outpatient follow up, a family practitioner, to return to the emergency department if symptoms worsen or persist or if there are any questions or concerns that arise at home. ED course: Patient doing much better. Tolerating food at this point and felt hungry. Will d/c home to f/u with PCP . Administered Medications: 16:41 Drug: Ringers - Lactated Ringers Solution 1000 ml Route: IV; Rate: bolus; Site: left vg1 subclavian; 18:03 Follow up: IV Status: Completed infusion; IV Intake: 1000ml vg1 16:43 Drug: traMADol 50 mg Route: PO; vg1 18:03 Follow up: Response: No adverse reaction vg1 17:15 Drug: Promethazine 6.25 mg Route: IVP; Site: left subclavian; vg1 18:03 Follow up: Response: Nausea is decreased vg1 17:15 CANCELLED (Duplicate Order): Phenergan 6.25 mg IVP once vg1 18:10 Drug: HEParin Flush 500 units Route: IVP; Site: left subclavian; vg1 18:10 Follow up: Response: Medication administered at discharge. vg1 Disposition: 11/22 07:31 Co-signature as Attending Physician, Ralph Ceron MD I agree with the assessment and tw4 plan of care. Disposition: 11/21/20 18:02 Discharged to Home. Impression: Dehydration, Vomiting, Diarrhea, unspecified. - Condition is Stable. - Discharge Instructions: Dehydration, Adult, Nausea and Vomiting, Adult. - Prescriptions for promethazine 25 mg Oral Tablet - take 1 tablet by ORAL route every 6 hours As needed; 20 tablet. - Medication Reconciliation Form, Thank You Letter, Antibiotic Education, Prescription Opioid Use form. - Follow up: Best Clemente MD; When: 2 - 3 days; Reason: Recheck today's complaints, Continuance of care, Re-evaluation by your physician. - Problem is new. - Symptoms have improved. Signatures: Georges Cooper PA PA jr8 Ralph Ceron MD MD tw4 Melissa Otoole RN RN vg1 Miri Leyva RN RN ll1 Corrections: (The following items were deleted from the chart) 11/21 17:15 17:14 Phenergan 6.25 mg IVP once ordered. vg1 vg1 18:40 18:02 11/21/2020 18:02 Discharged to Home. Impression: Dehydration; Vomiting; Diarrhea, vg1 unspecified. Condition is Stable. Forms are Medication Reconciliation Form, Thank You Letter, Antibiotic Education, Prescription Opioid Use. Follow up: Best Clemente; When: 2 - 3 days; Reason: Recheck today's complaints, Continuance of care, Re-evaluation by your physician. Problem is new. Symptoms have improved. jr8
[2020-11-21] MEDS ORDERED: HEPARIN 500 UNIT/5 ML SYR IV ONE (18:22)
[2020-11-21 18:44] VITALS: TEMP 98.5
[2020-11-21 18:48] VITALS: BP 149/80; O2SAT 95
== END 2020-11-21 18:40 | disposition home or self-care (01) ==
LOC: ER 14:24
DX: E86.0 Dehydration (principal); Z86.16 Personal history of COVID-19; R19.7 Diarrhea, unspecified; D09.9 Carcinoma in situ, unspecified; E11.9 Type 2 diabetes mellitus without complications; Z91.048 Other nonmedicinal substance allergy status
CPT/HCPCS: 96365; 96375; 99284; J2550; J1642; J7120

== ENCOUNTER 2020-11-23 10:46 | Inpatient (IN) | payer MEDICARE, OTHER, SELFPAY ==
--- OUTSIDE RECORDS SUMMARY | 2020-11-23 10:49 | XMS REPORT | Clinical Summary ---
:1940 Author Organization [facility] Address [address] [place] [address] Care Team Providers Name Role Phone Yanick [...] Added automatically from request for francis collado [phone] Encounters Date Type Specialty Care Team Description [...] Anesthesia Event Cardiothoracic Jaskaran Molina, Surgery 09/13/2020 [facility] General Internal Boyareddigari, Syncope a nd [...] Cardiothoracic Juan C, Stephanie Lentz MA 08/30/2020 [facility] Radiology Serafin Schmidt MD 08/30/2020 [facility] Radiology Serafin Schmidt MD 08/30/2020 [facility] Radiology Serafin Schmidt MD 08/30/2020 Office Visit Cardiothoracic Serafin Schmidt Lung mass (Pr imary Dx); Surgery MD Judith Pre-op testing 08/30/2020 Orders Only Cardiothoracic Provider, Stephanie Voss MD 08/30/2020 Travel 08/27/2020 Travel after 11/23/2019 Surgical History Surgery Date Site/Laterality Comments MASTECTOMY BRONCHOSCOPY, USING 09/16/2020 Chest/Left Procedure: F LEXIBLE ELECTROMAGNETIC NAVIGATION [facility] HOSCOPY, ELECTROMAGNETIC NAVIGATIONAL BRO NCHOSCOPY, BIOPSY OF LEFT U PPER LOBE MASS; Surgeon: Serafin Schmidt MD; Locat ion: [facility] OR; Serv ice: Thoracic; Later ality: Left; US, ENDOBRONCHIAL 09/16/2020 N/A Procedure: EBU S; Surgeon: Serafin Schmidt MD; Location: [facility] OR; Service: Thoraci c; Laterality: N/A; THORACENTESIS 09/16/2020 Chest/N/A Procedure: LEFT THORACENTESIS; Surgeon: Serafin Schmidt MD; Location: [facility] OR; Service: Thoraci c; Laterality: [...] Comments Blood Pressure 144/60 09/19/2020 7:23 AM [employer] Pulse 53 09/19/2020 7:23 AM [employer] Temperature 36.8 C (98.3 F) 09/19/2020 7:23 AM [employer] Respiratory Rate 18 09/19/2020 7:23 AM [employer] Oxygen Saturation 95% 09/19/2020 7:23 AM [employer] Inhaled Oxygen Concentration - - Weight 67.1 kg (148 lb) 09/13/2020 8:05 AM [employer] Height 157.5 cm (5' 2") 09/13/2020 8:05 AM [employer] Body Mass Index 27.07 09/13/2020 8:05 AM [employer] Plan of Treatment Health Maintenance Due Date Last Done Comments DIABETES: RETINAL EYE EXAM 01/04/1950 DIABETIC FOOT EXAM 01/04/1950 COVID-19 VACCINE (1 of 2) 1956 SHINGLES VACCINES (#1) 01/04/1990 65+ PNEUMOCOCCAL VACCINE (1 of 1 - PPSV23) 01/04/2005 INFLUENZA VACCINE 06/01/2020 09/01/2019 Procedures Procedure Name Priority Date/Time Associated Comments Diagnosis POC GLUCOSE Routine 09/19/2020 8:45 Results for this AM [employer] procedure are i n the results section. ESTIMATED GFR Routine 09/19/2020 5:30 Results fo r this AM [employer] procedure are i n the results section. CBC HEMOGRAM Routine 09/19/2020 5:30 Results for this AM [employer] procedure are i n the results section. BASIC METABOLIC PANEL Routine 09/19/2020 5:30 Re sults for this AM [employer] procedure are i n the results section. POC GLUCOSE Routine 09/18/2020 9:02 Results for this PM [employer] procedure are i n the results section. POC GLUCOSE Routine 09/18/2020 5:31 Results for this PM [employer] procedure are i n the results section. POC GLUCOSE Routine 09/18/2020 1:09 Results for this PM [employer] procedure are i n the results section. XR CHEST 1 VW PORTABLE STAT 09/18/2020 9:37 R esults for this AM [employer] procedure are i n the results section. POC GLUCOSE Routine 09/18/2020 8:31 Results for this AM [employer] procedure are i n the results section. POC GLUCOSE Routine 09/18/2020 5:31 Results for this AM [employer] procedure are i n the results section. ESTIMATED GFR Routine 09/18/2020 3:00 Results fo r this AM [employer] procedure are i n the results section. CBC HEMOGRAM Routine 09/18/2020 3:00 Results for this AM [employer] procedure are i n the results section. BASIC METABOLIC PANEL Routine 09/18/2020 3:00 Re sults for this AM [employer] procedure are i n the results section. POC GLUCOSE Routine 09/17/2020 11:54 Results for this PM [employer] procedure are i n the results section. POC GLUCOSE Routine 09/17/2020 4:46 Results for this PM [employer] procedure are i n the results section. POC GLUCOSE Routine 09/17/2020 1:04 Results for this PM [employer] procedure are i n the results section. POC GLUCOSE Routine 09/17/2020 8:19 Results for this AM [employer] procedure are i n the results section. ESTIMATED GFR Routine 09/17/2020 4:10 Results fo r this AM [employer] procedure are i n the results section. PHOSPHORUS LEVEL Routine 09/17/2020 4:10 Results for this AM [employer] procedure are i n the results section. MAGNESIUM LEVEL Routine 09/17/2020 4:10 Results for this AM [employer] procedure are i n the results section. BASIC METABOLIC PANEL Routine 09/17/2020 4:10 Re sults for this AM [employer] procedure are i n the results section. HC COMPLETE BLD COUNT Routine 09/17/2020 4:10 Re sults for this W/AUTO DIFF AM [employer] procedure are i n the results section. POC GLUCOSE Routine 09/16/2020 10:05 Results for this PM [employer] procedure are i n the results section. XR CHEST 1 VW PORTABLE STAT 09/16/2020 8:58 R esults for this PM [employer] procedure are i n the results section. POC GLUCOSE Routine 09/16/2020 5:59 Results for this PM [employer] procedure are i n the results section. XR CHEST 1 VW PORTABLE STAT 09/16/2020 4:27 R esults for this PM [employer] procedure are i n the results section. SURGICAL PATHOLOGY Routine 09/16/2020 4:11 Resul ts for this REQUEST PM [employer] procedure are i n the results section. SURGICAL PATHOLOGY Routine 09/16/2020 4:11 Resul ts for this REQUEST PM [employer] procedure are i n the results section. BAL CELL COUNT AND Routine 09/16/2020 2:46 Resul ts for this DIFFERENTIAL PM [employer] procedure are i n the results section. CYTOLOGY Routine 09/16/2020 1:20 Results for this (NON-GYNECOLOGICAL) PM [employer] procedur e are in REQUEST the results section. CYTOLOGY Routine 09/16/2020 1:20 Results for this (NON-GYNECOLOGICAL) PM [employer] procedur e are in REQUEST the results section. CYTOLOGY Routine 09/16/2020 1:20 Results for this (NON-GYNECOLOGICAL) PM [employer] procedur e are in REQUEST the results section. CYTOLOGY Routine 09/16/2020 1:20 Results for this (NON-GYNECOLOGICAL) PM [employer] procedur e are in REQUEST the results section. IA AN ELECTIVE Routine 09/16/2020 1:03 Results f or this ENDOTRACHEAL AIRWAY PM [employer] procedur e are in the results section. CYTOLOGY Routine 09/16/2020 10:45 Results for this (NON-GYNECOLOGICAL) AM [employer] procedur e are in REQUEST the results section. CYTOLOGY Routine 09/16/2020 10:45 Results for this (NON-GYNECOLOGICAL) AM [employer] procedur e are in REQUEST the results section. CYTOLOGY Routine 09/16/2020 10:44 Results for this (NON-GYNECOLOGICAL) AM [employer] procedur e are in REQUEST the results section. CYTOLOGY Routine 09/16/2020 10:44 Results for this (NON-GYNECOLOGICAL) AM [employer] procedur e are in REQUEST the results section. TTE COMPLETE, W Routine 09/16/2020 10:00 Results for this CONTRAST, W DOPPLER AM [employer] procedur e are in ([id number]) the results section. POC GLUCOSE Routine 09/16/2020 9:16 Results for this AM [employer] procedure are i n the results section. CT CHEST WO CONTRAST STAT 09/16/2020 8:50 Res ults for this AM [employer] procedure are i n the results section. CYTOLOGY Routine 09/16/2020 6:12 Results for this (NON-GYNECOLOGICAL) AM [employer] procedur e are in REQUEST the results section. CYTOLOGY Routine 09/16/2020 6:12 Results for this (NON-GYNECOLOGICAL) AM [employer] procedur e are in REQUEST the results section. CYTOLOGY Routine 09/16/2020 6:12 Results for this (NON-GYNECOLOGICAL) AM [employer] procedur e are in REQUEST the results section. POC GLUCOSE Routine 09/16/2020 4:25 Results for this AM [employer] procedure are i n the results section. ABO AND RH CONFIRMATION Routine 09/16/2020 4:25 Results for this AM [employer] procedure are i n the results section. B NATRIURETIC PEPTIDE Routine 09/16/2020 4:25 Re sults for this AM [employer] procedure are i n the results section. HC COMPLETE BLD COUNT Routine 09/16/2020 4:25 Re sults for this W/AUTO DIFF AM [employer] procedure are i n the results section. ESTIMATED GFR Routine 09/16/2020 4:00 Results fo r this AM [employer] procedure are i n the results section. PHOSPHORUS LEVEL Routine 09/16/2020 4:00 Results for this AM [employer] procedure are i n the results section. MAGNESIUM LEVEL Routine 09/16/2020 4:00 Results for this AM [employer] procedure are i n the results section. BASIC METABOLIC PANEL Routine 09/16/2020 4:00 Re sults for this AM [employer] procedure are i n the results section. ANTIBODY IDENTIFICATION Routine 09/16/2020 1:35 Results for this AM [employer] procedure are i n the results section. TYPE AND SCREEN Routine 09/16/2020 1:35 Results for this AM [employer] procedure are i n the results section. POC GLUCOSE Routine 09/16/2020 1:06 Results for this AM [employer] procedure are i n the results section. URINE CULTURE Routine 09/15/2020 9:52 Results fo r this PM [employer] procedure are i n the results section. POC GLUCOSE Routine 09/15/2020 8:59 Results for this PM [employer] procedure are i n the results section. URINALYSIS SCREEN AND Routine 09/15/2020 6:55 Re sults for this MICROSCOPY, WITH REFLEX PM [employer] proc edure are in TO CULTURE the results section. POC GLUCOSE Routine 09/15/2020 5:11 Results for this PM [employer] procedure are i n the results section. POC GLUCOSE Routine 09/15/2020 11:52 Results for this AM [employer] procedure are i n the results section. POC GLUCOSE Routine 09/15/2020 8:08 Results for this AM [employer] procedure are i n the results section. ESTIMATED GFR Routine 09/15/2020 4:50 Results fo r this AM [employer] procedure are i n the results section. PHOSPHORUS LEVEL Routine 09/15/2020 4:50 Results for this AM [employer] procedure are i n the results section. MAGNESIUM LEVEL Routine 09/15/2020 4:50 Results for this AM [employer] procedure are i n the results section. BASIC METABOLIC PANEL Routine 09/15/2020 4:50 Re sults for this AM [employer] procedure are i n the results section. HC COMPLETE BLD COUNT Routine 09/15/2020 4:50 Re sults for this W/AUTO DIFF AM [employer] procedure are i n the results section. POC GLUCOSE Routine 09/14/2020 9:19 Results for this PM [employer] procedure are i n the results section. POC GLUCOSE Routine 09/14/2020 5:11 Results for this PM [employer] procedure are i n the results section. POC GLUCOSE Routine 09/14/2020 1:39 Results for this PM [employer] procedure are i n the results section. HC COMPLETE BLD COUNT STAT 09/14/2020 8:44 Re sults for this W/AUTO DIFF AM [employer] procedure are i n the results section. POC GLUCOSE Routine 09/14/2020 7:08 Results for this AM [employer] procedure are i n the results section. ESTIMATED GFR STAT 09/14/2020 7:08 Results fo r this AM [employer] procedure are i n the results section. BASIC METABOLIC PANEL STAT 09/14/2020 7:08 Re sults for this AM [employer] procedure are i n the results section. HC COMPLETE BLD COUNT Routine 09/14/2020 5:30 Re sults for this W/AUTO DIFF AM [employer] procedure are i n the results section. HEMOGLOBIN A1C Routine 09/14/2020 5:30 Results f or this AM [employer] procedure are i n the results section. BLOOD CULTURE, AEROBIC Routine 09/13/2020 8:40 R esults for this & ANAEROBIC PM [employer] procedure are i n the results section. BLOOD CULTURE, AEROBIC Routine 09/13/2020 8:40 R esults for this & ANAEROBIC PM [employer] procedure are i n the results section. POC GLUCOSE Routine 09/13/2020 7:28 Results for this PM [employer] procedure are i n the results section. TROPONIN Timed 09/13/2020 5:00 Results for this PM [employer] procedure are i n the results section. COVID-19 QUALITATIVE STAT 09/13/2020 3:07 Res ults for this PCR PM [employer] procedure are i n the results section. NM LUNG PERFUSION STAT 09/13/2020 1:26 Result s for this IMAGING PM [employer] procedure are i n the results section. CT CHEST WO CONTRAST Routine 09/13/2020 12:50 Res ults for this PM [employer] procedure are i n the results section. TROPONIN Timed 09/13/2020 11:56 Results for this AM [employer] procedure are i n the results section. US DUPLEX VENOUS LOWER STAT 09/13/2020 11:00 R esults for this EXTREMITY RIGHT AM [employer] procedure ar e in the results section. ECG 12-LEAD STAT 09/13/2020 9:59 Results for this AM [employer] procedure are i n the results section. MAGNESIUM LEVEL STAT 09/13/2020 8:18 Results for this AM [employer] procedure are i n the results section. ESTIMATED GFR STAT 09/13/2020 8:18 Results fo r this AM [employer] procedure are i n the results section. TROPONIN STAT 09/13/2020 8:18 Results for this AM [employer] procedure are i n the results section. BASIC METABOLIC PANEL STAT 09/13/2020 8:18 Re sults for this AM [employer] procedure are i n the results section. PARTIAL THROMBOPLASTIN STAT 09/13/2020 8:18 R esults for this TIME (PTT) AM [employer] procedure are i n the results section. PROTHROMBIN TIME WITH STAT 09/13/2020 8:18 Re sults for this INR AM [employer] procedure are i n the results section. HC COMPLETE BLD COUNT STAT 09/13/2020 8:18 Re sults for this W/AUTO DIFF AM [employer] procedure are i n the results section. ECG 12-LEAD Routine 09/13/2020 8:14 Results for this AM [employer] procedure are i n the results section. ECG ED PRELIMINARY Routine 09/13/2020 8:13 Resul ts for this INTERPRETATION AM [employer] procedure are in the results section. ECG ED PRELIMINARY Routine 09/13/2020 8:13 Resul ts for this INTERPRETATION AM [employer] procedure are in the results section. [id number] Routine 09/12/2020 MRI BRAIN W WO CONTRAST [...] BASE TO Routine 08/16/2020 MID THIGH after 11/23/2019 Results POC glucose (09/19/2020 8:45 AM [employer])Only the most recent of24 resultswithin the time period is included. POC glucose 174 (H) 65 - 99 mg/dL [facility] Comment: HOSPITAL Lopper Name: Germaine Vasquez Device ID: [id number] Chartable: [facility] Notified RN Specimen Blood Performing Organization Address City/[facility] Phon e Number [facility] DEPARTMENT OF PATHOLOGY AND [address] [place] [address] [address] Estimated GFR (09/19/2020 5:30 AM [employer])Only the most recent of7 resultswithin the time period is included. [facility] Estimated GFR 39 (A) mL/min/1.73 [facility] Comment: HOSPITAL Catergory Units Interpretation G1 [...] in 2014. Specimen Plasma Performing Organization Address City/[facility] Phon e Number [facility] DEPARTMENT OF PATHOLOGY AND [address] [place], [place] [phone] [address] [address] CBC hemogram (09/19/2020 5:30 AM [employer])Only the most recent of2 resultswithin the time period is included. Pathologist Sig nature WBC 6.70 4.50 - 11.00 k/uL [facility] RBC 4.61 4.20 - 5.50 m/uL [facility] HGB 12.0 12.0 - 16.0 g/dL [facility] HCT 36.7 (L) 37.0 - 47.0 % [facility] MCV 79.6 (L) 82.0 - 100.0 fL [facility] MCH 26.0 (L) 27.0 - 34.0 pg [facility] MCHC 32.7 31.0 - 37.0 g/dL [facility] RDW - SD 37.4 37.0 - 55.0 fL [facility] MPV 11.4 8.8 - 13.2 fL [facility] Platelet count 207 150 - 400 k/uL [facility] Nucleated RBC 0.00 /100 WBC [facility] Specimen Plasma Performing Organization Address City/[facility] Phon e Number [facility] DEPARTMENT OF PATHOLOGY AND [address] [place] [address] [phone] [address] Basic metabolic panel (09/19/2020 5:30 AM [employer])Only the most recent of7 results within the time period is included. Pathologist Sig nature Sodium 140 135 - 148 mEq/L [facility] Potassium 4.0 3.5 - 5.0 mEq/L [facility] Chloride 104 98 - 112 mEq/L [facility] CO2 24 24 - 31 mEq/L [facility] Anion gap 12@ANIO 7 - 15 mEq/L [facility] BUN 12 8 - 23 mg/dL [facility] Creatinine 1.29 (H) 0.50 - 0.90 mg/dL [facility] Glucose 148 (H) 65 - 99 mg/dL [facility] Calcium 8.7 (L) 8.8 - 10.2 mg/dL [facility] Specimen Plasma Performing Organization Address City/[facility] Phon e Number [facility] DEPARTMENT OF PATHOLOGY AND [address] [place] [address] [phone] [address] XR Chest 1 Vw Portable (09/18/2020 9:37 AM [employer])Only the most recent of3 results within the [...] Radiology Results Incoming - 09/18/2020 9:45 AM [employer] EXAMINATION: XR CHEST 1 VW PORTABLE HISTORY: [...] City/State/ZIP Code Phon e Number [facility] [address] [place] [address] CBC with platelet and differential (09/17/2020 4:10 AM [employer])Only the most recent of6 resultswithin the time period is included. WBC 8.54 4.50 - 11.00 [facility] RBC 4.85 4.20 - 5.50 [facility] HGB 12.4 12.0 - 16.0 [facility]/dL [facility] HCT 39.2 37.0 - 47.0 % [facility] MCV 80.8 (L) 82.0 - 100.0 [facility] MCH 25.6 (L) 27.0 - 34.0 pg [facility] MCHC 31.6 31.0 - 37.0 [facility] g/dL [facility] RDW - SD 38.2 37.0 - 55.0 fL [facility] MPV 11.8 8.8 - 13.2 fL [facility] Platelet count 195 150 - 400 k/uL [facility] Nucleated RBC 0.00 /100 WBC [facility] Neutrophils 55.1 39.0 - 69.0 % [facility] Lymphocytes 29.2 25.0 - 45.0 % [facility] Monocytes 9.6 0.0 - 10.0 % [facility] Eosinophils 4.6 0.0 - 5.0 % [facility] Basophils 1.1 (H) 0.0 - 1.0 % [facility] Immature granulocytes 0.4Comment: 0.0 - 1.0 % [facility] "Immature HOSPITAL granulocytes" (promyelocytes , myelocytes, metamyelocytes ) Specimen Plasma Performing Organization Address [facility] Phon e Number [facility] DEPARTMENT OF PATHOLOGY AND [address] [place] [phone] Phosphorus level (09/17/2020 4:10 AM [employer])Only the most recent of3 resultswithin the time period is included. Pathologist Sig nature Phosphorus 2.4 2.4 - 4.5 mg/dL [facility] Specimen Plasma Performing Organization Address [facility] Phon e Number [facility] DEPARTMENT OF PATHOLOGY AND [address] [place] [phone] Magnesium level (09/17/2020 4:10 AM [employer])Only the most recent of4 resultswithin the time period is included. Pathologist Sig nature Magnesium 1.7 1.6 - 2.4 mg/dL [facility] Specimen Plasma Performing Organization Address [facility] Phon e Number [facility] DEPARTMENT OF PATHOLOGY AND [address] [place] [phone] [place] [phone] Surgical pathology request (09/16/2020 4:11 PM [employer])Only the most recent of2 resultswithin the time period is included. [facility] DEPARTMENT OF PATHOLOGY AND GENOMIC MEDICINE Surgical pathology See link below for [facility] DEPARTMENT O F report PDF Lab Report PATHOLOGY AND GENOMIC MEDICINE Result status This is Supplemental [facility] DEPARTMENT OF Report for PATHOLOGY AND [id number] GENOMIC MEDICINE Specimen Narrative Performed At NEOGENOMICS [facility] DEPARTMENT OF PATHOLOGY AND GENOMIC LUNG NGS MEDICINE [id number] DOS 09/16/2020 Block B1 Performing Organization Address City/[facility] Phon e Number [facility] DEPARTMENT OF PATHOLOGY AND [address] [place] [phone] GENOMIC MEDICINE BAL cell count and differential (09/16/2020 2:46 PM [employer]) BAL specimen source MAX BAL [facility] BAL cell count 0.040 m/mL [facility] Comment: HOSPITAL Normal ranges: Nonsmokers: 0.007 - 0.363 Smokers: 0 - 1.31 73% viability, many rbc's present BAL PAMS 3 % [facility] Comment: [facility] Normal ranges: Nonsmokers: 65 - 100 Smokers: 81 - 100 BAL PMNS 83 % [facility] Comment: [facility] Normal ranges: Nonsmokers: 0 - 3 Smokers: 0 - 2 BAL eosinophils 10 % [facility] Comment: HOSPITAL Normal ranges: Nonsmokers: 0 - 1 Smokers: 0 - 1 BAL lymphs 4 % [facility] Comment: HOSPITAL Normal ranges: Nonsmokers: 0 - 10 Smokers: 0 - 5 Specimen Fluid Narrative Performed At [facility] DEPARTMENT OF PATHOLOGY AND GENOMIC MEDICINE Performing Organization Address City/[facility] Phon e Number [facility] DEPARTMENT OF PATHOLOGY AND [address] [place] [address] 0 GENOMIC MEDICINE [address] [address] Cytology (non-gynecological) request (09/16/2020 1:20 PM [employer])Only the most recent of11 resultswithin the time period is included. [facility] DEPARTMENT OF PATHOLOGY AND GENOMIC MEDICINE Cytology See link below [facility] DEPARTMENT OF (non-gynecological) for PDF Lab PATHOLOGY AND report Report GENOMIC MEDICINE Result status This is Final [facility] DEPARTMENT OF Report for PATHOLOGY AND [id number] GENOMIC MEDICINE Specimen Performing Organization Address City/[facility] Phon e Number [facility] DEPARTMENT OF PATHOLOGY AND [address] [place] [address] [phone] GENOMIC MEDICINE Airway (09/16/2020 1:03 PM [employer]) Narrative Performed At Jaskaran Molina MD 09/16/2020 [...] and 3D if needed) (09/16/2020 10:00 AM [employer]) Specimen Narrative Performed At [facility] Echo cardiography Report [address] [facility], [place] [address] Pat.Name: DAHIANA WEATHERS [facility].ID: [id number] .Date: 09/16/2020 Refer.MD: ANALI BURGOS MD Exam Time: 9:19:00 AM Study Type:R outine Echo Height: 62in Weight: 148lb BSA: 1.68 m2 Ag e: 1940,80Y Sex: FEMALE BP: 120/56 HR: 73 bpm Sonogr phr: ODILON Friend, RDCS Pat. Stat.:Inpatient Room: [place] [address] Study Status:Final Echo Event ID:[id number] Order ID: [id number] Reason for Study:Syncope Procedures: 2D Echo, Colorflow [...] of 5 mmHg. MEASUREMENTS: 2D Parasternal Long Dittmer Ao An 1.9 cm LVPWd 1 cm [...] Radiology Results In - 2019 1:09 PM [facility] Echocardiography Report [address] [place] [address] Pat.Name: DAHIANA WEATHERS Pat.I D: [id number] .Date: 09/16/2020 Refer .MD: ANALI BURGOS MD Exam Time: 9:19:00 AM Study Type:Routine Echo Height: 62in Weigh t: 148lb BSA: 1.68 m2 Age: 3 1940,80Y Sex: FEMALE BP: 120/56 HR: 73 bpm Sonog rphr: ODILON Friend, RDCS Pat. Stat.:Inpatient Room: [place] [address] Study Status:Final Echo Event ID:[id number] Order ID: [id number] Reason for Study:Syncope Procedures: 2D Echo, Colorflow [...] of 5 mmHg. MEASUREMENTS: 2D Parasternal Long Dittmer Ao An 1.9 cm LVPW d 1 [...] City/State/ZIP Code Phon e Number [facility] [address] [place] [address] CT Chest Wo Contrast (09/16/2020 8:50 AM [employer])Only the most recent of2 results within the time period is included. Specimen Narrative Performed At [facility] CLINICAL HISTORY: [...] Radiology Results Incoming - 09/16/2020 9:37 AM [employer] EXAMINATION: CT CHEST WO CONTRAST CLINICAL HISTORY: [...] City/State/ZIP Code Phon e Number [facility] [address] [place] [address] ABO and Rh confirmation (09/16/2020 4:25 AM [employer]) Pathologist Sig nature ABO grouping A [facility] Rh type NEG [facility] Specimen Plasma Performing Organization Address [facility] Phon e Number [facility] DEPARTMENT OF PATHOLOGY AND [address] [place] [address] [phone] [address] B natriuretic peptide (09/16/2020 4:25 AM [employer]) Pathologist Sig nature BNP 56 0 - 100 pg/mL [facility] Specimen Blood Performing Organization Address City/[facility] Phon e Number [facility] DEPARTMENT OF PATHOLOGY AND [address] [place] [address] [phone] [address] Antibody identification (09/16/2020 1:35 AM [employer]) Pathologist Sig nature Antibody ID POS, Anti-D [facility] Specimen Performing Organization Address [facility] Phon e Number [facility] DEPARTMENT OF PATHOLOGY AND [address] [place] [address] [phone] [address] Type and screen (09/16/2020 1:35 AM [employer]) Pathologist Sig nature ABO grouping A [facility] Rh type NEG [facility] Antibody screen (gel) POS [facility] Specimen Plasma Performing Organization Address [facility] Phon e Number [facility] DEPARTMENT OF PATHOLOGY AND [address] [place] [address] [phone] [address] Urine culture (09/15/2020 9:52 PM [employer]) Urine culture Mixed danny <=10-3 col/cc [facility] IST isolate Comment: HOSPITAL Specimen Information Specimen Source: Urine Specimen Site: Catheterized Specimen Urine - Catheterized Performing Organization Address City/[facility]/ZIP [facility] Phon e Number [facility] DEPARTMENT OF PATHOLOGY AND [address] [place] [address] [phone] [address] Urinalysis screen and microscopy, with reflex to culture (09/15/2020 6:55 PM [employer]) Specimen site Catheterized [facility] Color, UA Yellow [facility] Appearance, UA Clear [facility] Specific gravity, UA 1.017 1.001 - 1.035 [facility] pH, UA 5.0 5.0 - 8.5 [facility] Protein, UA Negative Negative [facility] Glucose, UA Negative Negative [facility] Ketones, UA Negative Negative [facility] Bilirubin, UA Negative Negative [facility] Blood, UA Negative Negative [facility] Nitrite, UA Negative Negative [facility] Urobilinogen, UA <2.0 <2.0 [facility] Leukocyte esterase, Small (A) Negative [facility] Epithelial cells, UA 2 /HPF [facility] WBC, UA 32 (H) 0 - 4 /HPF [facility] RBC, UA 3 0 - 5 /HPF [facility] Bacteria, UA Few None seen [facility] Yeast, UA None seen [facility] Yeast with None seen [facility] pseudohyphae, [facility] Hyaline casts, UA 20 /LPF [facility] Specimen Urine Performing Organization Address City/[facility] Phon e Number [facility] DEPARTMENT OF PATHOLOGY AND [address] [place] [phone] Hemoglobin A1c (09/14/2020 5:30 AM [employer]) Pathologist [facility] Hemoglobin A1C 9.1 (H) 4.0 - 5.6 % [facility] Comment: HOSPITAL HbA1c cutoffs for diagnosing [...] 1 diabetes. Specimen Blood Performing Organization Address City/[facility] Phon e Number [facility] DEPARTMENT OF PATHOLOGY AND [address] [place] [phone] Blood culture, aerobic & anaerobic (09/13/2020 8:40 PM [employer])Only the most recent of2 resultswithin the time period is included. Blood culture No growth after 5 days of incubation. JULIAN ALARCON isolate Comment: HOSPITAL Specimen Information Specimen Source: Blood Specimen Site: Left Forearm Specimen Blood Performing Organization Address City/[facility] Phon e Number [facility] DEPARTMENT OF PATHOLOGY AND [address] [place] [address] [phone] [address] Troponin (09/13/2020 5:00 PM [employer])Only the most recent of3 resultswithin the time period is included. [facility] Troponin 0.012 0.000 - 0.040 [facility] Comment: ng/mL HOSPITAL In patients suspected of [...] 0.020 ng/mL Specimen Plasma Performing Organization Address City/State/[facility] Code Phon e Number [facility] DEPARTMENT OF PATHOLOGY AND [address] [place], [place] [phone] [address] COVID-19 qualitative PCR (09/13/2020 3:07 PM [employer]) Interpretation Negative results do not prec lude 2019-nCoV infection and should not be used as the sole basis for treatment or other patient management decisions. Negative results must be combined with clinical observations, patient history, and epidemiological RAMIREZ information. [facility] COVID-19 qualitative Not-Detected Not-Detecte [place] PCR result d [facility] COVID-19 qualitative See link below for [place] PCR PDF Lab [facility] ReportComment: Case HOSPITAL Number: [id number] Specimen Nasopharyngeal swab Performing Organization Address City/State/ZIP Code Phon e Number [facility] DEPARTMENT OF PATHOLOGY AND [address] [place], [place] [phone] GENOMIC MEDICINE [facility] [address] [place] [address] [facility] Lung Perfusion Imaging (09/13/2020 1:26 PM [employer]) Specimen Narrative Performed At PROCEDURE: NM LUNG [...] to the CT study report for details. [facility]-[id number] Procedure Note Interface, Radiology Results Incoming - 09/13/2020 1:56 PM [employer] PROCEDURE: NM LUNG PERFUSION IMAGING INDICATION: PE [...] to the CT study report for details. [facility]-[id number] Performing Organization Address City/State/ZIP Code Phon e Number RADIANT [address] [facility]. [place] [phone] Us duplex venous lower extremity (09/13/2020 11:00 AM [employer]) Specimen Narrative Performed At [facility] Vascular U ltrasound Laboratory Lower Extr emity Venous Report [address] [facility], [place] [address] Pat.Name: DAHIANA WEATHERS Pat.ID: [id number] .Date: 09/13/2020 Refer.MD: CAS PATE MD, RAHEEM PEREZ, ALEX Genao MD Exam Time: 10:32:00 AM Study Type:LE Venous Height: 62in Weight: 148lb BSA: 1.68 m2 Ag e: 1940,80Y Sex: FEMALE Sonogrphr: JAVIER KoromaS, Tong Gutierrez RDMS, RVT Pat. Stat.:Inpatient Room: ED19 Tape Vol: CM, CPT - 4: 58698 Echo Event ID:[id number] Order ID: [id number] Reason for Study:Leg swelling or pain, D [...] Radiology Results In - 2019 3:09 PM [facility] Vascular Ultrasound Laboratory Lower Extremity Veno us Report [address] [place] [address] Pat.Name: DAHIANA WEATHERS Pat.I D: [id number] .Date: 09/13/2020 Refer.MD: CAS PATE MD, FARHAT Jurado, ALEX Genao MD Exam Time: 10:32:00 AM Study Type:LE Venous Height: 62in Weigh t: 148lb BSA: 1.68 m2 Age: 3 1940,80Y Sex: FEMALE Sonogrphr: TITO Koroma, Tong Gutierrez RDMS, RVT Pat. Stat.:Inpatient Room: ED19 Tape Vol: CM, CPT - 4: 20392 Echo Event ID:[id number] Order ID: [id number] Reason for Study:Leg swelling or pain, D [...] visualized veins. Results given to Dr. Parsons 4427 PHYSICIAN INTERPRETATION: Venous examination of the right lower ex tremity and left groin demonstrated no evidence of venous throm bosis in the visualized veins. Normal compressibility and augmentation of all veins visualized. FINDINGS: Signed 09/13/2020 03:09 PM Santiago Samson MD, [facility] Performing Organization Address City/State/[facility] e Number [facility] [address] [place] [address] ECG 12 lead (09/13/2020 9:59 AM [employer])Only the most recent of2 resultswithin the time period is included. Pathologist Sig nature Ventricular rate 93 [facility] Atrial rate 93 [facility] IA interval 128 [facility] QRSD interval 74 [facility] QT interval 392 [facility] QTC interval 487 [facility] QRS axis 1 -35 [facility] T wave axis 48 [facility] EKG impression Sinus rhythm with fusion com plexes-Left axis deviation-Prolonged QT-Abnormal ECG-In automated comparison with ECG of 13-SEP-2020 08:14,-fusion complexes are now present-QRS axis shifted left-Electronically Signed By Courtney STARR, Yanick Raza ([id number]) on [facility] MUSE 09/13/2020 7:27:19 PM Specimen Narrative Performed At This result has an attachment that is no t available. Performing Organization Address City/State/[facility] Phon e Number [facility] MUSE [address] [place] [phone] Partial thromboplastin time, activated (09/13/2020 8:18 AM [employer]) PTT 24.1 23.0 - 36.0 [facility] Comment: [facility] PTT therapeutic range for unfractionated heparin is 61.0-112.0 seconds which corresponds to Anti-Xa 0.3-0.7 U/ml. Specimen Blood Performing Organization Address City/[facility] Phon e Number [facility] DEPARTMENT OF PATHOLOGY AND [address] [place] [address] [phone] [address] Prothrombin time with INR (09/13/2020 8:18 AM [employer]) Pathologist [facility] Prothrombin time 14.5 11.5 - 14.5 [facility] INR 1.1 [place] Comment: AGNES The International Normalized Ratio (INR) is a [facility] HOSPITAL monitoring tool for patients who are stable on oral anticoagulant therapy. An INR of 2.0-3.0 is suggested for deep vein thrombosis/pulmonary embolism. Specimen Blood Performing Organization Address [facility] Phon e Number [facility] DEPARTMENT OF PATHOLOGY AND [address] [place] [address] [phone] [address] ECG ED Preliminary Interpretation - Not an Order (09/13/2020 8:13 AM [employer])Only the most recent of2 resultswithin the time period is included. Narrative Performed At Alex Leo MD 6:44 AM ECG ED Preliminary Interpretation - Not an Order Performed by: Alex Leo MD Authorized by: Alex Leo MD ECG reviewed by ED Physician in the abse nce of a cable armorer operator: yes Interpretation: Interpretation: abnormal Rate: ECG rate: [...] not been [facility] interpreted by a [employer] Provider. T he exam was imported into our imaging system. Performing Organization Address City/[facility]/ZIP Code Phon e Number HM [facility] [address] [place] [address] PET/CT Skull Base To Mid Thigh (08/29/2020)Only the most recent of2 results within the time period is included. Narrative Performed At This result has an attachment that is no t available. NM Bone Scan External Study (08/16/2020 10:39 AM CDT) Specimen Narrative Performed At This exam was not acquired at a [facility] facility and has not been [facility] interpreted by a [employer] Provider. T he exam was imported into our imaging system. Performing Organization Address [facility] Code Phon e Number [facility] [address] [place] [address] CT Chest External Study (08/16/2020 8:43 AM CDT) Specimen Narrative Performed At This exam was not acquired at a [facility] t facility and has not been [facility] interpreted by a [employer] Provider. T he exam was imported into our imaging system. Performing Organization Address [facility] Phon e Number [facility] [address] [place] [address] CT Chest Wo Contrast Abdomen Wo Contrast Pelvis Wo Contrast (08/16/2020) Narrative Performed At This result has an attachment that is no t available. after 11/23/2019
--- OUTSIDE RECORDS SUMMARY | 2020-11-23 10:50 | XMS REPORT | Continuity of Care Document ---
:1940 Author Organization [facility] t Address [address] [place] [address] Care Team Providers Name Role Phone Yanick [...] Expiration Date Sour ce Number UHC MEDICAREUHC [id number] 2020 [place] MEDICARE 00:00:00 Christian HMO/[id number] -Present [place] Problems Condition Condition Condition Status Onset Resolution Last Treating Co mments Source Name Details Category Date Date Treatment Clinician Date Syncope Syncope Disease Active 2019-11 [place] and and 11-13 Method[facility] collapse collapse 00:00: st 00 Syncope Syncope Disease Active 2019-11 [place] 11-13 Methodi 00:00: st 00 Lung mass Lung mass Disease Active 2019-11 Overview: [place] 0 Added Methodi 00:00: automatic st 00 ally from request for surgery [id number] Allergies, Adverse Reactions, Alerts Allergy Allergy Status Severity Reaction(s) Onset Inactive Treating Comm ents Source Name Type Date Date Clinician Iodine Propensi Active Rash 2019-11 [place] And ty to 11-13 Method[facility] Iodide adverse 00:00: st Containi reaction 00 ng s to Products drug Iodine Propensi Active Hives [place] ty to 05-18 [facility] adverse 00:00: st reaction 00 s to drug Social History Social Habit Start Date Stop Date Quantity Comments Source History [facility] Meth odist Alcohol Std Drinks History [facility] Meth odist Alcohol Binge Sex Assigned At [facility] ethodist Tobacco use and 2020-09-18 2020-09-18 Never used [facility] ethodist exposure 00:00:00 00:00:00 Alcohol intake 2020-09-18 2020-09-18 [facility] thodist 00:00:00 00:00:00 non-drinker (finding) History SDOH 2020-08-30 2020-08-30 1 [place] Meth odist Alcohol Frequency 00:00:00 00:00:00 Smoking Status Start Date Stop Date Source Never smoker [place] Methodis t Medications Ordered Filled Start Stop Current Ordering Indication Dosage Frequency Signature Comments Components Source Medication Medication Date Date Medication? Clinician (SIG) Name Name hyoscyamine 2019-11 2020- No 1{tbl} Q.16316068 Take 1 [place] sulfate 11-19 [id number] tablet by Methodi 0.125 mg 10:27: 00:00 [...] mL) insulin pen dicyclomine 2019-11 Yes 20mg Q.66868088 Take 20 mg Bejarano (BENTYL) 20 - [id number] by mouth 3 [facility] mg tablet 10:27: [...] st tablet 00 clonIDINE 2020- No .1mg Q.00845648 Take 0.1 Bejarano (CATAPRES) 07-26 11-19 [id number] mg by M ethodi 0.1 MG 00:00: 00:[address] tablet 00 :00 (three) times a day. methscopola 2019- No 5mg QD Take 5 mg Bejarano mine 30 09-19 by mouth [facility] (PAMINE 00:00: 00:[address] FORTE) 5 MG 00 :00 tablet insulin 2019- Yes 8U Q.20537714 Inject 8 Bejarano ASPART 5-26 [id number] Units Method i (NovoLOG) 00:00: 3D under [...] REQUEST ID AN ELECTIVE 2020-09-16 13:03:19 Jaskaran Molina Meth odist ENDOTRACHEAL AIRWAY CYTOLOGY 2020-09-16 10:45:00 Hendrix, Adalid Bejarano Met hodist (NON-GYNECOLOGICAL) REQUEST CYTOLOGY 2020-09-16 10:44:00 HendrixAdalid farah Met hodist (NON-GYNECOLOGICAL) REQUEST TTE COMPLETE, W CONTRAST, 2020-09-16 10:00:00 Kendra ePnaist W DOPPLER ([id number]) [place] POC GLUCOSE 2020-09-16 [...] Christian HEMOGLOBIN A1C 2020-09-14 05:30:00 Clark Castro [place] Christian HC COMPLETE BLD COUNT 2020-09-14 05:30:00 Aubrey, Anali Alejandre Que Cal moni Christian W/AUTO DIFF BLOOD CULTURE, AEROBIC & 2020-09-13 20:40:00 Kendra Pena Christian ANAEROBIC [place] POC GLUCOSE 2020-09-13 19:28:00 Burgos, Anali Grey Bejarnao Christian TROPONIN 2020-09-13 17:00:00 Darci Fritz Meth jhonathan Johnson R. COVID-19 QUALITATIVE PCR 2020-09-13 15:07:00 Franny Fritz R. NM LUNG PERFUSION IMAGING 2020-09-13 13:26:[address] CHEST WO CONTRAST 2020-09-13 12:50:00 Apple Agarwal Christian [place] TROPONIN 2020-09-13 11:56:00 Darci Fritz Meth odmilly Johnson R. US DUPLEX VENOUS LOWER 2020-09-13 11:00:00 Farnaz Frizt on Christian EXTREMITY RIGHT Alex R. ECG [...] odist Alex R. MAGNESIUM LEVEL 2020-09-13 [facility] [place] [facility] Alex R. ECG 12-LEAD 2020-09-13 08:14:16 Ahmet Bejarano Meth odist Alex R. ECG ED PRELIMINARY 2020-09-13 08:13:29 Crescenciocharity [facility] ethodist INTERPRETATION Alex Ryan [id number] 2020-09-12 00:00:00 Provider, Shanika Joya MRI BRAIN [...] Facility Department ID 2020-10-18 2020-10-18 Office Kale [facility] [id number] 16:20:54 16:53:41 Visit Thomas Hayward [id number] [place] [id number] [id number] 2020-09-13 2020-09-19 Inpatient HENDRIX, [facility] [id number] [place] 00:00:00 00:00:00 ADALID [address] 2020-08-30 2020-08-30 Outpatient SCHMIDT, [facility] [id number] [place] 00:00:00 00:00:00 EDWARD [address] 2020-08-30 2020-08-30 Outpatient SCHMIDT, [facility] [id number] [place] 00:00:00 00:00:00 EDWARD [address] 2020-08-30 2020-08-30 Outpatient SCHMIDT, [facility] [id number] [place] 00:00:00 00:00:00 EDWARD [address] 2020-08-30 2020-08-30 Outpatient SCHMIDT, [facility] [id number] [place] 00:00:00 00:00:00 EDWARD [address] 2016-06-15 2016-06-15 Emergency [facility] [id number] [place] 00:00:00 00:00:[address] 2016-06-09 2016-06-11 Outpatient POPPY PRADO [facility] [id number] [place] 00:00:00 00:00:[address] 2015-12-31 2015-12-31 Outpatient ARIEL [facility] [id number] [place] 00:00:00 00:00:00 BRETT [address] 2015-12-30 2015-12-30 Outpatient ARIEL [facility] [id number] 196 [place] 00:00:00 00:00:00 BRETT [address] Results Test Description Test Time Test Comments Results Result Comments Source Surgical pathology request 2020-10-07 16:51:20 Test Item Value Reference Range Interpretation Comme nts Case number (test code = 4710904) [id number] Surgical pathology report (test code See link below for PDF Precision Honing Machine Operator ort = 2255) Result status (test code = 8746934) This is Supplemental Report for [id number] JAIRO (test code = JAIRO) [facility] [id number] 09/16/2020Block B1 [facility] xuyckxm9776-28-87 08:45:47 Test Item Value Reference Range Interpretation Comments POC glucose (test 174 mg/dL 65-99 H Finance Advisor N paulette: Shittu code = 35498-8) Keyaunmi[employer] Solar Technologieskarlos Device ID: [id number] able: [facility] Notified crook operator Interpretation Abnormal (test code = 97725-3) [facility] eprrhcxj9005-92-57 08:05:46 Test Item Value Reference Range Interpretation Comments WBC (test code = 28373-4) 6.70 4.50- 11.00 k/uL RBC (test code = 73172-7) 4.61 m/uL 4.2-5.5 HGB (test code = 718-7) 12.0 g/dL 12-16 HCT (test code = 4544-3) 36.7 % 37-47 L MCV (test code = 787-2) 79.6 fL 82-100 L MCH (test code = 785-6) 26.0 pg 27-34 L MCHC (test code = 786-4) 32.7 g/dL 31-37 RDW - SD (test code = 95977-7) 37.4 fL 37-55 MPV (test code = 52772-4) 11.4 fL 8.8-13.2 Platelet count (test code = 207 150- 400 k/uL 55132-0) Nucleated RBC (test code = 0.00 /100 WBC 12005-9) Lab Interpretation (test code = Abnormal 06322-0) [place] MethodistBasic metabolic ewwyr6218-34-75 07:59:07 Test Item Value Reference Range Interpretation Comments Sodium (test code = 2951-2) 140 135- 148 mEq/L Potassium (test code = 2823-3) 4.0 3.5- 5.0 mEq/L Chloride (test code = 2075-0) 104 98- 112 mEq/L CO2 (test code = 2027-9) 24 24- 31 mEq/L Anion gap (test code = 30296-7) 12@ANIO 7- 15 mEq/L BUN (test code = 3094-0) 12 mg/dL 8-23 Creatinine (test code = 2160-0) 1.29 mg/dL 0.5-0.9 H Glucose (test code = 2345-7) 148 mg/dL 65-99 H Calcium (test code = 70247-0) 8.7 mg/dL 8.8-10.2 L Lab Interpretation (test code = Abnormal 18190-1) [place] MethodistEstimated [id number] 07:59:07 Test Item Value Reference Range Interpretation Comments Estimated GFR (test 39 mL/min/1.73 m2 Jude Derrick bella Units code = 5488) InterpretationG 1 >=90 Claudia l or highG2 60-89 Mildly decrease dG3a 45-59 Mil dly to moderately decr rmfnwF0l 30-44 Moderately to s everely decreasedG4 15-29 Severe ly decreasedG5 <15 Kidney skye lureThe eGFR was calcul ated using the Chron ic Kidney Disease Epidemiology Collaboration ( CKD-EPI) equation. Interpretation is based on recommendati ons of the National Ki dney Foundation-Kidn ey Disease Outcome s Quality Initiat lona (NKF-KDOQI) pub lished in 2013. Lab Interpretation Abnormal (test code = 78211-1) [place] MethodistBlood culture, aerobic & uzqedeqwu3052-02-92 02:03:08 Test Item Value Reference Range Interpretation Comments Blood culture No growth Specimen isolate (test after 5 days InformationSpe cimen code = 600-7) of Source: BloodS pecimen incubation. Site: Left Fore arm [place] MethodistXR Chest 1 Vw Wobrxyue5667-83-21 09:42:47Hm Interface, Radiology Results Incoming - 09/18/2020 [...] of cervicothoracic spine partially visualized.1D2RAD_PS02[place] MethodistCytology (non-gynecological) coffozf1616-13-28 20:12:25 Test Item Value Reference Range Interpretation Comments Case number (test code = [id number]) Cytology See link below for (non-gynecological) PDF Lab Report report (test code = 1178) Result status (test code This is Final Report = [id number]) for [id number] [place] MethodistMagnesium phppw6446-46-04 08:07:08 Test Item Value Reference Range Interpretation Comments Magnesium (test code = 43710-2) 1.7 mg/dL 1.6-2.4 [place] MethodistPhosphorus oukjc2502-13-61 08:07:05 Test Item Value Reference Range Interpretation Comments Phosphorus (test code = 2777-1) 2.4 mg/dL 2.4-4.5 [place] MethodistCBC with platelet and etsynhdsbnrl2038-62-10 06:16:54 Test Item Value Reference Range Interpretation Comments WBC (test code = 00305-8) 8.54 4.50- 11.00 k/uL RBC (test code = 58561-5) 4.85 m/uL 4.2-5.5 HGB (test code = 718-7) 12.4 g/dL 12-16 HCT (test code = 4544-3) 39.2 % 37-47 MCV (test code = 787-2) 80.8 fL 82-100 L MCH (test code = 785-6) 25.6 pg 27-34 L MCHC (test code = 786-4) 31.6 g/dL 31-37 RDW - SD (test code = 38.2 fL 37-55 16043-4) MPV (test code = 39095-6) 11.8 fL 8.8-13.2 Platelet count (test code 195 150- 400 k/uL = 06661-9) Nucleated RBC (test code 0.00 /100 WBC = 66011-0) Neutrophils (test code = 55.1 % 39-69 55260-5) Lymphocytes (test code = 29.2 % 25-45 03133-9) Monocytes (test code = 9.6 % 0-10 05370-4) Eosinophils (test code = 4.6 % 0-5 97149-0) Basophils (test code = 1.1 % 0-1 H 39459-2) Immature granulocytes 0.4 % 0-1 "Immat ure (test code = 73072-3) granul ocytes" (promyelocytes, myelocytes, metamyelocytes) Lab Interpretation (test Abnormal code = 49499-6) Darci JoyaUrine owxdjqv6564-36-93 00:54:02 Test Item Value Reference Range Interpretation Comments Urine culture Mixed danny Specimen isolate (test <=10-3 col/cc InformationSp ecimen code = 96928-4) Source: Urin eSpecimen [facility] and ycybcxgqlayu2671-39-46 21:40:34 Test Item Value Reference Range Interpretation Comments BAL specimen source MAX BAL (test code = 28472-5) BAL cell count (test 0.040 m/mL Normal ranges: code = 62472-8) Nonsmokers: 0.007 - 0.363 Smokers: 0 - 1. 31 73% viability, many rbc's present BAL PAMS (test code = 3 % Normal ranges: 98454-2) Nonsmokers: 65 - 100 Smokers: 81 - 1 00 BAL PMNS (test code = 83 % Normal ranges: 9306-2) Nonsmokers: 0 - 3 Smok ers: 0 - 2 BAL eosinophils (test 10 % Normal ranges: code = 84993-8) Nonsmokers: 0 - 1 Smok ers: 0 - 1 BAL lymphs (test code = 4 % Norm al ranges: 52520-8) Nonsmokers: 0 - 10 Smo kers: 0 - 5 JAIRO (test code = JAIRO) BAL MAX [place] MethodistTransthoracic Echocardiogram Complete, (w Contrast, Strain and 3D if needed)2020-09-16 13:08:00Interface, Radiology Results In - 09/16/2020 1:09 PM [facility] Echocardiography Report [id number] [address] Pat.Name: FRANTZ WEATHERS Pat.ID: [id number].Date: 09/16/2020 Refer.MD: ANALI BURGOS MDExam Time: 9:19:00 AM Study Type:Routine Echo Height: 62in Weight: 148lb BSA: 1.68 m2 Age: 3 1940,80Y Sex: FEMALE BP: 120/56 HR: 73 bpm Sonogrphr: Aylin Rodriguez, ODILON, [facility] Pat. Stat.:Inpatient Room: [place] [address] Study Status:Final Echo Event ID:[id number] Order ID: [id number] Reason for Study:Syncope Procedures: 2D Echo, Colorflow [...] of 5 mmHg. MEASUREME NTS: 2DParasternal Long [place] AoAn 1.9 cm LVPWd 1 cm Ao [...] SVi 41 ml/m2 TV Pressure Gradient TV LiSlj737 cm/s TV PG 27 mmHg WALL MOTION:-------- RESTING WALL MOTION:Basal Inferoseptal wall is hypokinetic. Normal wall motion in allother carrington.Wall Index = 1.1Signed 09/16/2020 01:08 PMMarie Tapia YqkrdnnhaBddjjb2440-31-86 13:03:19 Jaskaran Molina MD 09/16/2020 1:05 PMAirway [...] Attempts at Approach: 1[place] MethodistCT Chest Wo Uhrbcvgt8479-23-90 09:34:07Hm Interface, Radiology Results Incoming - 09/16/2020 [...] susp icious for malignant adenopathy. 1D2RAD_PS02[place] MethodistAntibody phdbhmdvphjrcv5047-85-11 06:07:00 Test Item Value Reference Range Interpretation Comments Antibody ID (test code = 14213-7) POS, Anti-D [place] MethodistABO and Rh idhkgkrmjjbd4434-27-01 06:06:00 Test Item Value Reference Range Interpretation Comments ABO grouping (test code = 883-9) A Rh type (test code = 21882-2) NEG [place] MethodistB natriuretic rkmmrji5133-32-89 05:53:02 Test Item Value Reference Range Interpretation Comments BNP (test code = 12008-0) 56 pg/mL 0-100 [place] MethodistType and hvqdxi1063-02-90 03:03:00 Test Item Value Reference Range Interpretation Comments ABO grouping (test code = 883-9) A Rh type (test code = 01155-9) NEG Antibody screen (gel) (test code = POS 890-4) [place] MethodistUrinalysis screen and microscopy, with reflex to culture 2020-09-15 22:06:01 Test Item Value Reference Range Interpretation Comments Specimen site (test code = Catheterized 8688891) Color, UA (test code = 5778-6) Yellow Appearance, UA (test code = Clear 5767-9) Specific gravity, UA (test code 1.017 1.001-1.035 = 5811-5) pH, UA (test code = 5803-2) 5.0 5.0-8.5 Protein, UA (test code = Negative Negative 46717-1) Glucose, UA (test code = Negative Negative 07888-5) Ketones, UA (test code = 2514-8) Negative Negative Bilirubin, UA (test code = Negative Negative 5770-3) Blood, UA (test code = 5794-3) Negative Negative Nitrite, UA (test code = 5802-4) Negative Negative Urobilinogen, UA (test code = <2.0 <2.0 73552-0) Leukocyte esterase, UA (test Small Negative A code = 5799-2) Epithelial cells, UA (test code 2 /HPF = 5787-7) WBC, UA (test code = 5821-4) 32 0- 4 /HPF H RBC, UA (test code = 91793-0) 3 0- 5 /HPF Bacteria, UA (test code = Few None seen 01666-5) Yeast, UA (test code = 12172-9) None seen Yeast with pseudohyphae, UA None seen (test code = 64024-5) Hyaline casts, UA (test code = 20 /LPF 5796-8) Lab Interpretation (test code = Abnormal 49388-2) Darci JoyaHemoglobin [id number] 11:41:57 Test Item Value Reference Range Interpretation Comments Hemoglobin A1C (test 9.1 % 4-5.6 H HbA1c c utoffs for code = 36795-5) diagnosing diabetes:4.0% - 5.6% = normal5.7% - 6.4% = increased risk for diabetes (prediabetes)9> =6.5% = regemczf7Hvva s for glycemic contro l (ADA 2016)< 7.0% Ta rget for non adults with ganesh betes. More or less stringent targe ts may be appropriate for individual tamar ents. <7.5% Target for Children and adolescents wit h type 1 diabetes. Lab Interpretation (test Abnormal code = 11569-2) Darci JoyaCOVID-19 qualitative [id number] 20:21:50 Test Item Value Reference Range Interpretation Comments Interpretation (test Negative results do code = 5677003) not preclude 2019-nCoV infection and should not be used as the sole basis for treatment or other patient management decisions. Negative results must be combined with clinical observations, patient history, and epidemiological information. COVID-19 qualitative Not-Detected Not-Detected PCR result (test code = 53211-3) COVID-19 qualitative See link below for C ase Number: PCR (test code = PDF Lab Report [id number]) Darci Mejía 12 kelc6682-32-60 19:27:22 Test Item Value Reference Range Interpretation [...] are now present-QRS axis shifted left- Darci DalePwtxqsutsDndwkwab4925-74-82 18:10:56 Test Item Value Reference Range Interpretation Comments Troponin (test code 0.012 ng/mL 0-0.04 In patie nts suspected = 08749-1) of having a rochelle cardial infarction, nelly [...] decreased by le ss than 0.020 ng/mL [facility] duplex venous lower zvvttqdkk2551-60-56 15:09:00Interface, Radiology Results In - 09/13/2020 3:09 PM [facility] Vascular Ultrasound Laboratory Lower Extremity Venous Fusgxq27[address] [address] Pat.Name: FRANTZ WEATHERS Pat.ID: [id number] .Date: 09/13/2020 Refer.MD: CAS PATE MD, ALEX FRITZ MDExraven Time: 10:32:00 AM Study Type:LE Venous Height: 62in Weight: 148lb BSA: 1.68 m2 Age: 3 1940,80Y Sex: FEMALE Sonogrphr: Freddie Wright, TITO, Tong Gutierrez, RDMS, RVTPat. Stat.:Inpatient Room: ED19 Tape Vol: CM, CPT - 4: 19698 Echo Event ID:[id number] Order ID: [id number] Reason for Study:Leg swelling or pain, DVT [...] 09/13/2020 03:09 PMSantiago Samson MD, RPVI Darci JoyaMO Lung Perfusion Utfrtju6249-93-26 13:53:35Hm Interface, Radiology Results 09/13/2020 1:56 PM CSTPROCEDURE: [place] LUNG PERFUSION IMAGINGINDICATION: PE suspected low pretest [...] refer to the CT study report for details.[facility]-[id number] ChristianPartial thromboplastin time, activated 2020-09-13 09:09:09 Test Item Value Reference Range Interpretation Comments PTT (test code = 24.1 23.0- 36.0 [place] [address]-4) unfractionated heparin is61.0-112.0 se conds which corresponds to Anti-Xa0.3-0.7 U/ml. Darci JoyaProthrombin time with LWL4726-68-59 09:08:33 Test Item Value Reference Range Interpretation Comments Prothrombin time (test 14.5 11.5- 14.5 sec code = 5902-2) INR (test code = 1.1 The Interna tional 89544-6) Normalized Rati o (INR) is a therapeutic m onitoring tool for patien ts who are stable on oral anticoagulant t herapy. An INR of 2.0-3.0 is suggested for d eep vein thrombosis/pulm onary embolism. [facility] ED Preliminary Interpretation - Not an Wmdda3759-04-78 08:13:29 Test Item Value Reference Range Interpretation Comments JAIRO (test code = JAIRO) Alex Fritz MD 09/14/2020 6:44 [facility] ED Preliminary Interpretation - Not an OrderPerformed by: Alex Fritz MDAuthorized by: Alex Fritz MD ECG reviewed by ED Physician in the absence of a aggregate conveyor operator: yes Interpretation: Interpretation: abnormal Rate: ECG rate: 88 ECG rate assessment: normal Rhythm: Rhythm: sinus rhythm Ectopy: Ectopy: PVCs PVCs: FrequentQRS: QRS axis: Normal QRS intervals: NormalConduction: Conduction: normal ST segments: ST segments: NormalT waves: T waves: normal Comments: Prolonged QT Lab Interpretation Abnormal (test code = 66733-8) [place] MethodistCT Chest External Zdbfc4203-67-05 10:45:49This exam was not acquired at a Christian facility and has not been interpreted by a Christian Provider. The exam was imported into our imaging system.[place] MethodistNM Bone Scan External Milki1753-93-09 10:45:27This exam was not acquired at a Christian facility and has not been interpreted by a Christian Provider. The exam was imported into our imaging system.[place] MethodistPET/CT Whole Body External Ivfml7318-96-15 10:45:06This exam was not acquired at a Christian facility and has not been interpreted by a Christian Provider. The exam was imported into our imaging system.[place] Christian
[2020-11-23] MEDS ORDERED: Ringers Lactate 1,000 ML IV ONE (11:32)
[2020-11-23] MEDS ORDERED: ONDANSETRON 4 MG/2 ML VIAL ONE (11:32)
[2020-11-23 11:33] LABS: Basophils % 0.6 % (0-1.3); Hematocrit 36.8 % (36.0-45.0); Lymphocytes % 24.5 % (15.3-44.8); RBC Red Blood Cell Count 4.78 M/uL (3.86-4.86)
--- NOTE | 2020-11-23 11:38 | RAD REPORT ---
EXAM DESCRIPTION: Brandee Single View11/23/2020 11:19 am CLINICAL HISTORY: Lung cancer COMPARISON: November 13, 2020 FINDINGS: Moderate right and qeqe-ot-mlrlspyd left pulmonary opacities Heart is normal size. Central venous line in place IMPRESSION: Bilateral pulmonary opacities have developed since the prior exam likely pneumonia
--- NOTE | 2020-11-23 11:58 | EDPHYS ---
Physician Documentation [facility] Name: Dahiana Smith Age: 80 yrs Sex: Female : 1940 Arrival Date: 11/23/2020 Time: 10:50 Bed 7 Private MD: ED Physician Satnam Cabral HPI: 11/23 10:57 This 80 yrs old Female presents to ER via EMS with complaints of fatigue and rn feels dehydrated. 10:57 Reports a week or so of nausea/vomiting/diarrhea, has lung cancer, was getting fluids rn as outpt, but COVID +, just seen here a few days ago for same, felt better with fluids, and reports able to drink some fluids at home, just not enough. Denies increased sob beyond her baseline. No blood in stool or emesis. . Onset: The symptoms/episode began/occurred 1 week(s) ago. Severity of symptoms: At their worst the symptoms were mild in the emergency department the symptoms are unchanged. The patient has experienced similar episodes in the past. The patient has been recently seen by a physician:. Historical: - Allergies: 10:53 Iodine; bp - Home Meds: 10:53 [place] 5-325 mg Oral tab [Active]; bp - PMHx: 10:53 Cancer; Diabetes - IDDM; bp - Immunization history:: Adult Immunizations up to date. - Social history:: Smoking status: Patient denies any tobacco usage or history of. - Family history:: not pertinent. - Hospitalizations: : No recent hospitalization is reported. ROS: 10:57 Constitutional: Negative for fever Eyes: Negative for injury, pain, redness, and rnfa, Neck: Negative for injury, pain, and swelling, Cardiovascular: Negative for chest pain Respiratory: + cough, + sob Abdomen/GI: Negative for abdominal pain, and constipation Back: Negative for injury and pain, MS/Extremity: Negative for injury and deformity, Skin: Negative for injury, rash, and discoloration, Neuro: Negative for headache, numbness, tingling, and seizure Exam: 10:57 Constitutional: Thin female, mild tachypnea Head/Face: Normocephalic, atraumatic. 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 No pulse deficits. Respiratory: + mild tachypnea, diminished at bases Abdomen/GI: soft, non-tender Skin: Warm, dry MS/ Extremity: Pulses equal, no cyanosis. Neuro: Awake and alert, GCS 15 Vital Signs: 10:51 BP 147 / 70; Pulse 93; Resp 20; Temp 97.3(TE); Pulse Ox 85% on R/A; ca1 11:45 BP 144 / 105; Pulse 87; Resp 16 S; Pulse Ox 95% on 2 lpm NC; ca1 12:35 BP 143 / 58; Pulse 88; Resp 20; Pulse Ox 90% on 2 lpm NC; ca1 13:15 BP 156 / 83; Pulse 89; Resp 20; Pulse Ox 96% on 2 lpm NC; ca1 14:15 BP 156 / 73; Pulse 89; Resp 18 S; Pulse Ox 91% on 2 lpm NC; ca1 MDM: 10:53 Patient medically screened. rn 11:18 ED course: Daughter states not on oxygen at home, feels like needs it. Also reports rn increased weakness over last few days, states not eating/drinking enough at home despite her pushing fluids. . 11:53 Differential Diagnosis pneumonia, lung cancer, covid-19. Data reviewed: vital signs, rn nurses notes, lab test result(s), EKG, radiologic studies, plain films, and as a result, I will admit patient. Counseling: I had a detailed discussion with the patient and/or guardian regarding: the historical points, exam findings, and any diagnostic results supporting the discharge/admit diagnosis, lab results, radiology results, the need for further work-up and treatment in the hospital. Response to treatment: the patient's symptoms have mildly improved after treatment, and as a result, I will admit patient. Admission orders: after a detailed discussion of the patient's condition and case, the admit orders are written by me. 11/23 10:55 Order name: CBC with Diff; Complete Time: 11:43 rn 11/23 10:55 Order name: Basic Metabolic Panel; Complete Time: 11:43 rn 11/23 12:24 Order name: C-Reactive Protein [facility] 11/23 12:24 Order name: Protime (+INR) [facility] 11/23 12:24 Order name: Ferritin [facility] 11/23 12:24 Order name: Comprehensive Metabolic Panel [facility] 11/23 12:24 Order name: Comprehensive Metabolic Panel [facility] 11/23 12:24 Order name: Troponin I [facility] 11/23 12:24 Order name: Troponin I [facility] 11/23 12:24 Order name: Troponin I [facility] 11/23 12:24 Order name: Troponin I [facility] 11/23 12:25 Order name: Urinalysis W/Microscopic [facility] 11/23 12:25 Order name: C.difficile GDH Ag [facility] 11/23 12:25 Order name: CBC with Automated Diff [facility] 11/23 10:55 Order name: XRAY Chest (1 view); Complete Time: 11:43 rn 11/23 10:55 Order name: EKG; Complete Time: 10:56 rn 11/23 12:20 Order name: Diet Regular; Complete Time: 12:20 ca1 11/23 12:24 Order name: CONS Physician Consult [facility] 11/23 12:24 Order name: CONS Physician Consult [facility] 11/23 12:25 Order name: CONS Pharmacy Consult [facility] 11/23 12:25 Order name: Consistent Carb (ADA) 1800 [address] [facility] 11/23 12:25 Order name: CBC with Automated Diff [facility] 11/23 13:52 Order name: Urine Dipstick--Ancillary (enter results) [facility] 11/23 15:46 Order name: Urine Dipstick-Ancillary [facility] 11/23 17:39 Order name: Glucose, Ancillary Testing [facility] 11/23 10:55 Order name: EKG - Nurse/Tech; Complete Time: 11:09 rn Administered Medications: 11:18 Drug: Lactated Ringers Solution 1000 ml Route: IV; Rate: 1 bolus; Site: left subclavian;ca1 12:30 Follow up: Response: No adverse reaction; IV Status: Completed infusion; IV Intake: ca1 1000ml 11:19 Drug: Zofran (Ondansetron) 4 mg Route: IVP; Site: left subclavian; ca1 12:00 Follow up: Response: No adverse reaction; Nausea is decreased ca1 11:55 Drug: SOLU-Medrol 125 mg Route: IVP; Site: left subclavian; ca1 13:00 Follow up: Response: No adverse reaction ca1 11:57 Drug: Calcium Gluconate 1 grams Route: IVPB; Infused Over: 60 mins; Site: left ca1 subclavian; 12:58 Follow up: Response: No adverse reaction; IV Status: Completed infusion; IV Intake: ca1 100ml 12:46 Drug: Potassium Chloride 10 mEq Route: IV; Rate: calculated rate; Site: right ca1 subclavian; 13:50 Follow up: Response: No adverse reaction; IV Status: Completed infusion; IV Intake: ca1 100ml Disposition: 11/23/20 11:57 Hospitalization ordered by Olivia Maher for Inpatient Admission. Preliminary diagnosis are Coronavirus infection, unspecified, Pneumonia, unspecified organism, Hypoxemia, Hypokalemia, Hypocalcemia. - Bed requested for Telemetry/MedSurg (Inpatient). - Status is Inpatient Admission. rv - Condition is Stable. - Problem is new. - Symptoms have worsened. Signatures: Dispatcher [employer] EDMS Satnam Cabral MD MD rn Garcia, Cindy RN Best Avelar RN RN bp Vicente, Ronaldo, RN RN rv AcobCristina RN RN ca1 Corrections: (The following items were deleted from the chart) 11:01 10:57 Constitutional: Negative for fever Eyes: Negative for injury, pain, redness, and rnfa, Neck: Negative for injury, pain, and swelling, Cardiovascular: Negative for chest pain Respiratory: + cough, + sob Abdomen/GI: Negative for abdominal pain, nausea, vomiting, diarrhea, and constipation Back: Negative for injury and pain, MS/Extremity: Negative for injury and deformity, Skin: Negative for injury, rash, and discoloration, Neuro: Negative for headache, numbness, tingling, and seizure rn 11:32 10:55 IV Saline Lock ordered. rn ca1 14:42 11:57 Hospitalization Ordered by Olivia Maher MD for Inpatient Admission. Preliminary ca1 diagnosis is Coronavirus infection, unspecified; Pneumonia, unspecified organism; Hypoxemia; Hypokalemia; Hypocalcemia. Bed requested for Telemetry/MedSurg (Inpatient). Status is Inpatient Admission. Condition is Stable. Problem is new. Symptoms have worsened. rn 19:58 14:42 11/23/2020 11:57 Hospitalization Ordered by Olivia Maher MD for Inpatient cg Admission. Preliminary diagnosis is Coronavirus infection, unspecified; Pneumonia, unspecified organism; Hypoxemia; Hypokalemia; Hypocalcemia. Bed requested for [facility] ER HOLD. Status is Inpatient Admission. Condition is Stable. Problem is new. Symptoms have worsened. ca1 20:39 19:58 11/23/2020 11:57 Hospitalization Ordered by Olivia Maher MD for Inpatient rv Admission. Preliminary diagnosis is Coronavirus infection, unspecified; Pneumonia, unspecified organism; Hypoxemia; Hypokalemia; Hypocalcemia. Bed requested for Telemetry/MedSurg (Inpatient). Status is Inpatient Admission. Condition is Stable. Problem is new. Symptoms have worsened.
--- NOTE | 2020-11-23 11:58 | ER ---
Nurse's Notes [facility] Name: Dahiana Smith Age: 80 yrs Sex: Female : 1940 Arrival Date: 11/23/2020 Time: 10:50 Bed 7 Private MD: Diagnosis: Coronavirus infection, unspecified;Pneumonia, unspecified organism;Hypoxemia;Hypokalemia;Hypocalcemia Presentation: 11/23 10:50 Chief complaint: EMS states: SOB WITH COVID +. Coronavirus screen: Client reports bp previous positive COVID test result. Ebola Screen: No symptoms or risks identified at this time. 10:50 Method Of Arrival: EMS: [facility] bp 10:51 Coronavirus screen: Client reports previous positive COVID test result. Date of ca1 collection: November 20, 2020. Ebola Screen: Patient negative for fever greater than or equal to 101.5 degrees Fahrenheit, and additional compatible Ebola Virus Disease symptoms Patient denies exposure to infectious person. Patient denies travel to an Ebola-affected area in the 21 days before illness onset. No symptoms or risks identified at this time. Initial Sepsis Screen: Does the patient meet any 2 criteria? No. Patient's initial sepsis screen is negative. Does the patient have a suspected source of infection? No. Patient's initial sepsis screen is negative. Risk Assessment: Do you want to hurt yourself or someone else? Patient reports no desire to harm self or others. Onset of symptoms was November 23, 2020. 10:51 Method Of Arrival: EMS: [facility] ca1 10:51 Acuity: DULCE 2 ca1 Triage Assessment: 10:53 General: Appears in no apparent distress. uncomfortable, Behavior is cooperative, bp appropriate for age, anxious. Pain: Denies pain. EENT: No deficits noted. Neuro: No deficits noted. Cardiovascular: No deficits noted. Respiratory: Reports shortness of breath Breath sounds with crackles bilaterally. Breath sounds are diminished in left lower lobe. GI: No signs and/or symptoms were reported involving the gastrointestinal system. : No signs and/or symptoms were reported regarding the genitourinary system. Derm: No deficits noted. Musculoskeletal: No deficits noted. Historical: - Allergies: 10:53 Iodine; bp - Home Meds: 10:53 Echo 5-325 mg Oral tab [Active]; bp - PMHx: 10:53 Cancer; Diabetes - IDDM; bp - Immunization history:: Adult Immunizations up to date. - Social history:: Smoking status: Patient denies any tobacco usage or history of. - Family history:: not pertinent. - Hospitalizations: : No recent hospitalization is reported. Screenin:52 Abuse screen: Denies threats or abuse. Denies injuries from another. Nutritional ca1 screening: No deficits noted. Tuberculosis screening: No symptoms or risk factors identified. Fall Risk IV access (20 points). Assessment: 10:55 General: SEE TRIAGE NOTE. ADVANCED DIRECTIVE ON FILE, COMFORT MEASURES ONLY. bp 11:55 Reassessment: Patient appears in no apparent distress at this time. Patient and/or ca1 family updated on plan of care and expected duration. Pain level reassessed. Patient is alert, oriented x 3, equal unlabored respirations, skin warm/dry/pink. 12:56 Reassessment: Patient appears in no apparent distress at this time. Patient and/or ca1 family updated on plan of care and expected duration. Pain level reassessed. Patient is alert, oriented x 3, equal unlabored respirations, skin warm/dry/pink. 13:55 Reassessment: Patient appears in no apparent distress at this time. Patient and/or ca1 family updated on plan of care and expected duration. Pain level reassessed. Patient is alert, oriented x 3, equal unlabored respirations, skin warm/dry/pink. 14:41 Reassessment: Patient appears in no apparent distress at this time. Patient and/or ca1 family updated on plan of care and expected duration. Pain level reassessed. Patient is alert, oriented x 3, equal unlabored respirations, skin warm/dry/pink. Vital Signs: 10:51 BP 147 / 70; Pulse 93; Resp 20; Temp 97.3(TE); Pulse Ox 85% on R/A; ca1 11:45 BP 144 / 105; Pulse 87; Resp 16 S; Pulse Ox 95% on 2 lpm NC; ca1 12:35 BP 143 / 58; Pulse 88; Resp 20; Pulse Ox 90% on 2 lpm NC; ca1 13:15 BP 156 / 83; Pulse 89; Resp 20; Pulse Ox 96% on 2 lpm NC; ca1 14:15 BP 156 / 73; Pulse 89; Resp 18 S; Pulse Ox 91% on 2 lpm NC; ca1 ED Course: 10:50 Patient arrived in ED. em1 10:50 Cristina Elizabeth, RN is Primary Nurse. ca1 10:52 Triage completed. ca1 10:52 Arm band placed on right wrist. ca1 10:52 Patient has correct armband on for positive identification. Placed in gown. Bed in low ca1 position. Call light in reach. Side rails up X2. monitoring engineer on. Pulse ox on. NIBP on. Warm blanket given. Head of bed elevated. 10:53 Satnam Cabral MD is Attending Physician. rn 11:09 EKG done, by ED staff, reviewed by Satnam Cabral MD. em1 11:10 Accessed Blood collected. Central line, L subclavian Clean \T\ dry. Dressing intact. Good ca1 blood return. Flushes easily. 11:10 Initial lab(s) drawn, by me, sent to lab. ca1 11:16 Basic Metabolic Panel Sent. ca1 11:16 CBC with Diff Sent. ca1 11:19 XRAY Chest (1 view) In Process Unspecified. EDMS 11:56 Olivia Maher MD is Hospitalizing Provider. rn 14:42 No provider procedures requiring assistance completed. Patient admitted, IV remains in ca1 place. Administered Medications: 11:18 Drug: Lactated Ringers Solution 1000 ml Route: IV; Rate: 1 bolus; Site: left subclavian;ca1 12:30 Follow up: Response: No adverse reaction; IV Status: Completed infusion; IV Intake: ca1 1000ml 11:19 Drug: Zofran (Ondansetron) 4 mg Route: IVP; Site: left subclavian; ca1 12:00 Follow up: Response: No adverse reaction; Nausea is decreased ca1 11:55 Drug: SOLU-Medrol 125 mg Route: IVP; Site: left subclavian; ca1 13:00 Follow up: Response: No adverse reaction ca1 11:57 Drug: Calcium Gluconate 1 grams Route: IVPB; Infused Over: 60 mins; Site: left ca1 subclavian; 12:58 Follow up: Response: No adverse reaction; IV Status: Completed infusion; IV Intake: ca1 100ml 12:46 Drug: Potassium Chloride 10 mEq Route: IV; Rate: calculated rate; Site: right ca1 subclavian; 13:50 Follow up: Response: No adverse reaction; IV Status: Completed infusion; IV Intake: ca1 100ml Intake: 12:30 IV: 1000ml; Total: 1000ml. ca1 12:58 IV: 100ml; Total: 1100ml. ca1 13:50 IV: 100ml; Total: 1200ml. ca1 Outcome: 11:57 Decision to Hospitalize by Provider. rn 14:42 Admitted to ER Hold. Please see [facility] for further documentation. ca1 14:42 Condition: stable 14:42 Instructed on the need for admit. 20:40 Patient left the ED. rv Signatures: Dispatcher [employer] EDMS Satnam Cabral MD MD rn Martinez, Eric [facility] Best Miller RN RN Cooper Toro RN RN rv Cristina Elizabeth RN RN ca1
--- NOTE | 2020-11-23 12:17 | P.HP ---
Certification for Inpatient With expected LOS: >2 Midnights Patient will require the following post-hospital care: Home Health Services Practitioner: I am a practitioner with admitting privileges, knowledge of patient current condition, hospital course, and medical plan of care. Services: Services provided to patient in accordance with Admission requirements found in Title 42 Section 412.3 of the Code of Federal Regulations Patient History Date of Service: 11/23/20 Reason for admission: Nausea vomiting History of Present Illness: 80-year-old female with past medical history of metastatic lung cancer, hypertension, diabetes mellitus, history of left pleural effusion status post Pleur-evac placement, recent admission for [facility] ED MsTony urosepsis with bacteremia and discharged 1 week ago presented because of nausea vomiting with increasing weakness and decreased p.o. intake since the last 1 week. She was noted with positive covid infection 2 days ago. She has been having mild shortness of breath which family reports is increased from a baseline. Patient denies any diarrhea. She is awake and conversant and able to give history. On presentation due to increasing weakness she was noted with O2 sats at 85% on room air in the emergency room. Patient does not have oxygen at home. She has been admitted for acute respiratory failure secondary to covid pneumonia. Chest x-ray shows bilateral pulmonary alveolar infiltrates new compared to previous from 1 week ago at the time of discharge. No documented fever. No documented hypotension now. She has been admitted as noted above Allergies iodine Allergy (Verified 11/14/20 22:36) Hives/Rash Red berries Allergy (Uncoded 11/12/20 17:03) Rash Home Medications: Anastrozole [Arimidex*] 1 mg PO DAILY 03/05/16 Clonidine HCl [Catapres] 0.1 mg PO TID 10/31/20 Escitalopram [Lexapro*] 20 mg PO DAILY 10/31/20 Hyoseyamin 0.125 mg PO Q4H PRN 10/31/20 Insulin Degludec [Tresiba Flextouch U-100] 36 units SQ DAILY 10/31/20 carvediloL [Coreg*] 6.25 mg PO BID 10/31/20 Dicyclomine HCl 20 mg PO TID 11/05/20 Insulin Aspart [Novolog Flexpen] 9 unit SQ TID 11/05/20 Losartan Potassium 50 mg PO BID 11/05/20 Omeprazole 20 mg PO DAILY 11/05/20 Thyroid,Pork [[place] Thyroid] 15 mg PO DAILY 11/05/20 Ensure High Protein 237 ml PO Q12H #60 can 11/13/20 Acidophilus/Bulgaricus [Lactinex Tablet Chewable] 1 each PO TID #90 tab.chew 11/15/20 Diphenox/Atropine [Lomotil] 1 tab PO BIDP PRN #30 tab 11/15/20 - Past Medical/Surgical History Diabetic: Yes -: DM type2 -: Lung Cancer -: Dyslipidemia -: Osteoarthritis -: Hypothyroidism -: Diabetes mellitus type 2 -: bilateral mastectomy -: tummy tuck -: breast reduction -: Appendectomy -: partial hysterectomy Psychosocial/ Personal History: Patient is retired, lives with her and has home health - Family History Brother -: Diabetes Sister -: Diabetes - Social History Alcohol use: No CD- Drugs: No Caffeine use: Yes Review of Systems General: Weakness, Malaise ENT: Unremarkable Respiratory: Cough, Shortness of Breath Cardiovascular: Unremarkable Gastrointestinal: Nausea, Vomiting Genitourinary: Unremarkable Musculoskeletal: Unremarkable Integumentary: Unremarkable Neurological: Weakness Lymphatics: Unremarkable Physical Examination - Physical Exam General: Oriented x2, Cachectic HEENT: Atraumatic, Normocephalic, PERRLA Neck: Supple, 2+ carotid pulse no bruit, JVD not distended Respiratory: Normal air movement, Diminished, Other (left pleur-vac insitu , Picc LINE insitu) Cardiovascular: No edema, Normal pulses, Regular rate/rhythm, Normal S1 S2 Gastrointestinal: Normal bowel sounds, Soft and benign, Non-distended Musculoskeletal: No clubbing, No swelling Integumentary: No rashes, No breakdown Neurological: Normal gait, Normal speech, Normal strength at 5/5 x4 extr External genitalia: No edema, No lesions - Studies Laboratory Data (last 24 hrs) 11/23/20 11:16: Sodium 134 L, Potassium 3.0 L, BUN 13, Creatinine 1.30, Glucose 151 H 11/23/20 11:16: WBC 3.9 L D, Hgb 11.8 L, Hct 36.8, Plt Count 127 L D Assessment and Plan - Advance Directives Does patient have a Living Will: Yes Does patient have a Durable POA for Healthcare: Yes - Code Status/Comfort Care Code Status: Do Not Attempt Resuscitat Physician Review: Patient Assessed, Agree with Above Assessment and Plan Physician Review Additional Text: Covid infection with bilateral pneumonia Metastatic lung cancer. History of recurrent Pleural effusion History of hypertension Diabetes mellitus Recent staph epidemis urosepsis Plan -Covid Pneumonia with hypoxic respiratory failure-complicating underlying meta static lung cancer -Overall poor prognosis from Covid infection giving high mortality in this population discussed with patient and family. We start patient on empirical IV steroids, zinc as well as ivermectin -Obtain CRP ferritin levels and trend -Follow WBC trend -Start gentle IV fluid hydration with D5 NS for now despite history of diabetes mellitus -Encourage p.o. intake might need Megace -Start 2 L nasal cannula O2 and adjust as tolerated -Will consult Pulmonary -If patient remains stable with no escalating levels of supplemental oxygen in the next 24 hr she may be consider for discharge home with home O2 -Start Zofran p.r.n. for antiemetics -Advanced directive discussed, patient express DNR wishes - continue pleurx-vac drainage q2days for pleural effusion
[2020-11-23] MEDS ORDERED: METHYLPREDNISOLONE 125 MG INJ ONE ×2 (12:18→18:12)
[2020-11-23] MEDS ORDERED: ACETAMINOPHEN 500 MG TAB PO PRN (12:18)
[2020-11-23] MEDS ORDERED: ONDANSETRON 4 MG/2 ML VIAL IV PRN (12:18)
[2020-11-23] MEDS ORDERED: ALBUTEROL 2.5 MG/3 ML NEB SOL NEB PRN (12:18)
[2020-11-23] MEDS ORDERED: CALCIUM GLUCONATE 1 GM IVPB 1 GM/50 ML BAG IV ONE (12:18)
[2020-11-23] MEDS ORDERED: BENZONATATE 100 MG CAP PO PRN (12:21)
[2020-11-23] MEDS ORDERED: D5.45NS W/KCL 20MEQ 1,000 ML IV SCH (13:00)
[2020-11-23] MEDS ORDERED: POTASSIUM CL 10 MEQ in NA CHLORIDE 0.9% 100 ML IV ONE (13:00)
[2020-11-23] MEDS ORDERED: IVERMECTIN 3 MG TABLET PO ONE (13:00)
[2020-11-23 13:43] VITALS: BMI 25.2
[2020-11-23 13:57] LABS: Urine Appearance CLOUDY; Urine Bilirubin NEGATIVE (NEG); Urine Blood NEGATIVE (NEG); Urine Color YELLOW; Urine Glucose TRACE (NEG); Urine Protein 3+ (NEG); Urine Specific Gravity 1.015 (1.005-1.030); Urine Urobilinogen 0.2 mg/dL (0.2-1.0)
[2020-11-23] MEDS: DICYCLOMINE HCL 10 MG CAP PO SCH ×2 (14:00→21:45)
[2020-11-23] MEDS: LACTOBACILLUS/ACIDOPHILUS TAB PO SCH ×2 (14:00→21:45)
[2020-11-23 14:14] LABS: Urine Bacteria 20-50 /HPF (<20); Urine RBC <5 /HPF (NONE SEEN)
[2020-11-23 14:16] LABS: Urine Yeast MANY (NONE SEEN)
[2020-11-23 15:45] LABS: Urine Blood TRACE (NEG); Urine Glucose NEGATIVE (NEG); Urine Protein 3+ (NEG); Urine Specific Gravity 1.025 (1.005-1.030)
[2020-11-23] MEDS: INSULIN -REGULAR HUMAN 50 UNIT/0.5 ML ML SQ SCH ×2 (16:30→22:53)
--- NOTE | 2020-11-23 16:51 | P.CNS ---
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 in ER pt was hypoxic , she was tested positive for COVID 19 , earlier this wee Review of Systems: Head and Neck: No red eye. No ear pain. GI: has nausea, and vomiting. : No polyuria, no dysuria, no hematuria. Laser Specialist: Not applicable. Respiratory: No shortness of breath. Cardiovascular: No chest pain. Endocrine: No polydipsia. Skin: No rash. Neuro: Has neuropathy. Musculoskeletal: No back pain . Physical exam general: awake and alert , NAD Neck; Supple, No elevated JVD hear: RRR, normal S1,2 no murmur or rub Chest: CTAB, no rlaes or wheezes , sided port Abdomen: Soft , Nt Extremities no edema A/p Hypokalemia due to poor oral intake and vomiting relace prn will check Mg and TSH mild hyponatremia now on 1/2 NS , will monitor sodium level and switch to NS if drops metastatic lung CA with Pleur-evac fluid removal prn COVID19 cont steroids and O2 prognosis guarded total time spent 65min Allergies iodine Allergy (Verified 11/14/20 22:36) Hives/Rash Red berries Allergy (Uncoded 11/12/20 17:03) Rash Home Medications: Anastrozole [Arimidex*] 1 mg PO DAILY 03/05/16 Clonidine HCl [Catapres] 0.1 mg PO TID 10/31/20 Escitalopram [Lexapro*] 20 mg PO DAILY 10/31/20 Hyoseyamin 0.125 mg PO Q4H PRN 10/31/20 Insulin Degludec [Tresiba Flextouch U-100] 36 units SQ DAILY 10/31/20 carvediloL [Coreg*] 6.25 mg PO BID 10/31/20 Dicyclomine HCl 20 mg PO TID 11/05/20 Insulin Aspart [Novolog Flexpen] 9 unit SQ TID 11/05/20 Losartan Potassium 50 mg PO BID 11/05/20 Omeprazole 20 mg PO DAILY 11/05/20 Thyroid,Pork [[place] Thyroid] 15 mg PO DAILY 11/05/20 Ensure High Protein 237 ml PO Q12H #60 can 11/13/20 Acidophilus/Bulgaricus [Lactinex Tablet Chewable] 1 each PO TID #90 tab.chew 11/15/20 Diphenox/Atropine [Lomotil] 1 tab PO BIDP PRN #30 tab 11/15/20 - Past Medical/Surgical History Diabetic: Yes -: DM type2 -: Lung Cancer -: Dyslipidemia -: Osteoarthritis -: Hypothyroidism -: Diabetes mellitus type 2 -: bilateral mastectomy -: tummy tuck -: breast reduction -: Appendectomy -: partial hysterectomy Psychosocial/ Personal History: Patient is retired, lives with her and has home health - Family History Brother Medical History: Diabetes Sister Medical History: Diabetes - Social History Smoking Status: Unknown if ever smoked Alcohol use: No CD- Drugs: No Caffeine use: Yes Place of Residence: Home Physical Examination Temp Pulse Resp BP Pulse Ox 98.1 F 88 19 150/80 H 96 11/23/20 15:58 11/23/20 15:58 11/23/20 15:58 11/23/20 15:58 11/23/20 15:58 Laboratory Data (last 24 hrs) 11/23/20 11:16: Sodium 134 L, Potassium 3.0 L, BUN 13, Creatinine 1.30, Glucose 151 H 11/23/20 11:16: WBC 3.9 L D, Hgb 11.8 L, Hct 36.8, Plt Count 127 L D
[2020-11-23 17:28] LABS: Protime INR 1.16
[2020-11-23] MEDS ORDERED: D50W 25 GM/50 ML SYRINGE IV PRN (17:37)
[2020-11-23] MEDS ORDERED: GLUCAGON 1 MG/VIAL IM PRN (17:37)
[2020-11-23] MEDS: METHYLPREDNISOLONE 125 MG INJ IV SCH ×2 (18:00→23:00)
[2020-11-23] MEDS ORDERED: DICYCLOMINE HCL 10 MG CAP ONE (18:13)
[2020-11-23] MEDS ORDERED: D5.45NS W/KCL 20MEQ 1,000 ML IV ONE (18:13)
[2020-11-23] MEDS: FAMOTIDINE 20 MG TAB PO SCH (21:45)
[2020-11-23] MEDS: LOSARTAN POTASSIUM 50 MG TABLET PO SCH (21:46)
[2020-11-23] MEDS: INSULIN GLARGINE 100 UNITS/ML SQ SCH (22:53)
[2020-11-24 04:27] LABS: Absolute Lymphocytes (CBC) 0.5 K/uL (0.7-4.9); Basophils % 0.3 % (0-1.3); Hematocrit 34.6 % (36.0-45.0); Lymphocytes % 33.1 % (15.3-44.8); MPV 9.1 fL (7.6-11.3); RBC Red Blood Cell Count 4.49 M/uL (3.86-4.86)
[2020-11-24 04:54] LABS: Albumin 1.9 g/dL (3.4-5.0); Bilirubin Total 0.3 mg/dL (0.2-1.0); Magnesium 1.9 mg/dL (1.8-2.4); Potassium 3.6 mmol/L (3.5-5.1); Protein, Total 5.7 g/dL (6.4-8.2)
[2020-11-24 04:55] LABS: Troponin I 0.71 ng/mL (0.0-0.045)
[2020-11-24] MEDS: METHYLPREDNISOLONE 125 MG INJ IV SCH ×3 (05:00→21:05)
[2020-11-24] MEDS ORDERED: IVERMECTIN 3 MG TABLET PO SCH (07:00)
[2020-11-24] MEDS: INSULIN -REGULAR HUMAN 50 UNIT/0.5 ML ML SQ SCH ×4 (08:37→21:12)
[2020-11-24] MEDS: THYROID 30 MG TAB PO SCH (08:37)
[2020-11-24] MEDS: LACTOBACILLUS/ACIDOPHILUS TAB PO SCH ×3 (08:38→21:05)
[2020-11-24] MEDS: ESCITALOPRAM 20 MG TAB PO SCH (08:38)
[2020-11-24] MEDS: DICYCLOMINE HCL 10 MG CAP PO SCH ×3 (08:38→21:05)
[2020-11-24] MEDS: INSULIN GLARGINE 100 UNITS/ML SQ SCH ×2 (08:38→21:11)
[2020-11-24] MEDS: LOSARTAN POTASSIUM 50 MG TABLET PO SCH ×2 (08:38→21:05)
[2020-11-24] MEDS: FAMOTIDINE 20 MG TAB PO SCH ×2 (08:38→21:05)
--- NOTE | 2020-11-24 08:46 | P.PN ---
Subjective Date of Service: 11/24/20 (Hospitalist) Chief Complaint: Almanzar virus pneumonia Patient is 80 years of age with metastatic lung cancer diabetes hypertension was admitted from the emergency room be urosepsis bacteremia issues discharge a week ago since with increasing nausea vomiting overall intake very weak diagnosed with almanzar virus 2 days ago is been complaining of worsening dyspnea chest x- ray consistent with almanzar virus pneumonia Review of Systems General: Weakness Respiratory: Shortness of Breath Physical Examination - Vital Signs Temperature: 96.8 F Blood Pressure: 122/72 Pulse: 60 Respirations: 16 Pulse Ox (%): 94 - Physical Exam General: Alert, Oriented x3, Mild distress Neck: Supple Respiratory: Clear to auscultation bilaterally Cardiovascular: No edema, Normal S1 S2 Gastrointestinal: Normal bowel sounds, Soft and benign - Studies Laboratory Data (last 24 hrs) 11/23/20 11:16: Sodium 134 L, Potassium 3.0 L, BUN 13, Creatinine 1.30, Glucose 151 H 11/23/20 11:16: WBC 3.9 L D, Hgb 11.8 L, Hct 36.8, Plt Count 127 L D Assessment & Plan - Problems (Diagnosis) (1) Pneumonia due to 2019 novel coronavirus Current Visit: Yes Status: Acute Plan: Patient is 80 years of age with a history of metastatic lung cancer as also had PleurX catheter for malignant pleural effusion admitted with weakness nausea vomiting as symptoms signs consistent with almanzar virus pneumonia she has mild microcytic anemia patient's kidney function is normal continue with IV fluids steroids patient has a sacral wound urinalysis no evidence of infection l patient has a low white count oxygenation satisfactory patient is high risk for thromboembolism patient's troponin is also elevated start patient on Eliquis Physician Review: Patient Assessed, Agree with Above Assessment and Plan
[2020-11-24] MEDS ORDERED: ANASTROZOLE 1 MG TAB PO SCH (09:00)
[2020-11-24] MEDS ORDERED: ENOXAPARIN 60 MG/0.6 ML SQ SCH (09:00)
[2020-11-24] MEDS ORDERED: ENOXAPARIN 30 MG/0.3 ML SQ SCH (09:00)
[2020-11-24] MEDS ORDERED: HOME MED 1 EA UNK (Insulin Degludec [Tresiba Flextouch U-100] 100 UNIT/ML Insuln.Pen) SQ SCH (09:00)
[2020-11-24] MEDS ORDERED: NACHLORIDE 0.45% 1,000 ML IV SCH (09:00)
[2020-11-24] MEDS: IVERMECTIN 3 MG TABLET PO SCH (09:39)
[2020-11-24] MEDS: VITAMIN D 1000 UNIT TAB PO SCH (10:40)
[2020-11-24] MEDS: ZINC SULFATE 220 MG CAP PO SCH (10:40)
[2020-11-24] MEDS: THIAMINE HCL 100 MG TABLET PO SCH ×2 (10:43→21:11)
[2020-11-24] MEDS: APIXABAN 2.5 MG TABLET PO SCH ×2 (10:43→21:05)
--- NOTE | 2020-11-24 10:52 | P.PN ---
Subjective Date of Service: 11/24/20 Chief Complaint: Almanzar virus pneumonia subjective Pt is a poor historian Hx obtained from chart An 80-year-old woman with past medical history of metastatic lung cancer with chonic malignane effusions S/P pleur-evac, hypertension and diabetes mellitus, Pt presented because of nausea vomiting with increasing weakness and decreased p.o. in ER pt was hypoxic , she was tested positive for COVID 19 , earlier this wee today electrolytes wnl cr stable will dc IVF , pt with Hx of malignant pleural effusion Review of Systems: Head and Neck: No red eye. No ear pain. GI: has nausea, and vomiting. : No polyuria, no dysuria, no hematuria. Household Appliance Mechanic: Not applicable. Respiratory: No shortness of breath. Cardiovascular: No chest pain. Endocrine: No polydipsia. Skin: No rash. Neuro: Has neuropathy. Musculoskeletal: No back pain . Physical exam general: awake and alert , NAD Neck; Supple, No elevated JVD hear: RRR, normal S1,2 no murmur or rub Chest: CTAB, no rlaes or wheezes , Lt sided port Abdomen: Soft , Nt Extremities no edema A/p Hypokalemia resolved due to poor oral intake and vomiting mild hyponatremia resolved metastatic lung CA with Pleur-evac fluid removal prn elevated troponin cont to trend Asymptomatic COVID19 cont steroids and O2 prognosis guarded total time spent 35min Subjective Physical Examination - Vital Signs Temperature: 96.8 F Blood Pressure: 122/72 Pulse: 60 Respirations: 16 Pulse Ox (%): 94 - Studies Laboratory Data (last 24 hrs) 11/23/20 11:16: Sodium 134 L, Potassium 3.0 L, BUN 13, Creatinine 1.30, Glucose 151 H 11/23/20 11:16: WBC 3.9 L D, Hgb 11.8 L, Hct 36.8, Plt Count 127 L D Assessment And Plan Physician Review: Patient Assessed, Agree with Above Assessment and Plan
[2020-11-24] MEDS: MELATONIN 3 MG TABLET PO SCH (21:00)
[2020-11-25] MEDS: HYDRALAZINE HCL 20 MG/ML VIAL IV PRN (00:47)
[2020-11-25 05:25] LABS: Hematocrit 32.7 % (36.0-45.0); MPV 9.1 fL (7.6-11.3); RBC Red Blood Cell Count 4.31 M/uL (3.86-4.86)
[2020-11-25 05:54] LABS: C-Reactive Protein 18.7 mg/L (<3.00); Ferritin 637.1 ng/mL (8-388)
[2020-11-25 05:55] LABS: Potassium 3.7 mmol/L (3.5-5.1); Troponin I 0.53 ng/mL (0.0-0.045)
[2020-11-25] MEDS: THYROID 30 MG TAB PO SCH (08:09)
[2020-11-25] MEDS: LOSARTAN POTASSIUM 50 MG TABLET PO SCH ×2 (08:10→21:13)
[2020-11-25] MEDS: INSULIN -REGULAR HUMAN 50 UNIT/0.5 ML ML SQ SCH ×4 (08:10→21:14)
[2020-11-25] MEDS: VITAMIN D 1000 UNIT TAB PO SCH (08:10)
[2020-11-25] MEDS: ZINC SULFATE 220 MG CAP PO SCH (08:11)
[2020-11-25] MEDS: INSULIN GLARGINE 100 UNITS/ML SQ SCH ×2 (08:11→21:14)
[2020-11-25] MEDS: THIAMINE HCL 100 MG TABLET PO SCH ×2 (08:11→21:13)
[2020-11-25] MEDS: APIXABAN 2.5 MG TABLET PO SCH (08:11)
[2020-11-25] MEDS: FAMOTIDINE 20 MG TAB PO SCH ×2 (08:11→21:14)
[2020-11-25] MEDS: LACTOBACILLUS/ACIDOPHILUS TAB PO SCH ×3 (08:11→21:13)
[2020-11-25] MEDS: DICYCLOMINE HCL 10 MG CAP PO SCH ×3 (08:11→21:14)
[2020-11-25] MEDS: ESCITALOPRAM 20 MG TAB PO SCH (08:11)
[2020-11-25] MEDS: METHYLPREDNISOLONE 125 MG INJ IV SCH ×2 (08:12→21:14)
[2020-11-25] MEDS ORDERED: HYDROCORTISONE SUC 100 MG INJ IV ONE (14:11)
[2020-11-25] MEDS: MORPHINE 2 MG/ML SYR IV PRN (14:14)
[2020-11-25] MEDS ORDERED: ALBUTEROL 2.5 MG/3 ML NEB SOL NEB PRN (18:00)
[2020-11-25] MEDS ORDERED: D50W 25 GM/50 ML VIAL IV PRN (18:00)
[2020-11-25] MEDS: MELATONIN 3 MG TABLET PO SCH (21:00)
[2020-11-25] MEDS: APIXABAN 5 MG TABLET PO SCH (21:13)
--- NOTE | 2020-11-25 21:32 | PN ---
Date of Progress Note: 11/25/2020 Chief Complaint: Acute on chronic kidney injury and the patient has pneumonia due to COVID infection . The patient has history of metastatic lung cancer with chronic malignant pleural effusion, hyperte nsion, diabetes mellitus, diabetic kidney disease. She was found to have hypoxemia when she presente d to Emergency and was tested positive for COVID. IV fluids were discontinued due to some fluid over load. Review of Systems: Denies PND or orthopnea. Physical Examination: LUNGS: Diminished breath sound at bases. HEART: S1, S2. ABDOMEN: Soft, benign. EXTREMITIES: No edema. Impression And Plan: 1.Acute on chronic kidney injury with prerenal azotemia. Monitor electrolytes and uric acid. 2.Hyponatremia, resolved. Normal saline will be used to treat hyponatremia as needed. 3.Metastatic lung cancer with Pleur-evac. Fluid removal p.r.n. according to chest x-ray findings. 4.COVID infection. Continue on steroids. Monitor potassium and magnesium level. Continue oxygen t herapy. EB/MODL Voice ID: [id number] Report ID: [id number]
[2020-11-26 04:52] LABS: Hematocrit 34.8 % (36.0-45.0); MPV 8.9 fL (7.6-11.3); RBC Red Blood Cell Count 4.58 M/uL (3.86-4.86)
[2020-11-26 05:09] LABS: C-Reactive Protein 9.46 mg/L (<3.00); Ferritin 468.4 ng/mL (8-388); Potassium 3.4 mmol/L (3.5-5.1); Troponin I 0.31 ng/mL (0.0-0.045)
[2020-11-26] MEDS: INSULIN -REGULAR HUMAN 50 UNIT/0.5 ML ML SQ SCH ×4 (07:30→21:43)
[2020-11-26] MEDS: IVERMECTIN 3 MG TABLET PO SCH (09:23)
[2020-11-26] MEDS: VITAMIN D 1000 UNIT TAB PO SCH (09:24)
[2020-11-26] MEDS: DICYCLOMINE HCL 10 MG CAP PO SCH ×3 (09:24→21:45)
[2020-11-26] MEDS: METHYLPREDNISOLONE 125 MG INJ IV SCH ×2 (09:24→21:48)
[2020-11-26] MEDS: LOSARTAN POTASSIUM 50 MG TABLET PO SCH ×2 (09:24→21:44)
[2020-11-26] MEDS: FAMOTIDINE 20 MG TAB PO SCH ×2 (09:24→21:44)
[2020-11-26] MEDS: THIAMINE HCL 100 MG TABLET PO SCH ×2 (09:24→21:44)
[2020-11-26] MEDS: APIXABAN 5 MG TABLET PO SCH ×2 (09:24→21:43)
[2020-11-26] MEDS: LACTOBACILLUS/ACIDOPHILUS TAB PO SCH ×3 (09:25→21:45)
[2020-11-26] MEDS: ZINC SULFATE 220 MG CAP PO SCH (09:25)
[2020-11-26] MEDS: THYROID 30 MG TAB PO SCH (09:25)
[2020-11-26] MEDS: INSULIN GLARGINE 100 UNITS/ML SQ SCH ×2 (09:25→21:43)
[2020-11-26] MEDS: ESCITALOPRAM 20 MG TAB PO SCH (09:26)
--- NOTE | 2020-11-26 10:01 | P.PN ---
Subjective Date of Service: 11/25/20 Subjective: No new changes, No C/O voiced, Improving Review of Systems 10-point ROS is otherwise unremarkable Physical Examination - Vital Signs Temperature: 97.5 F Blood Pressure: 164/78 Pulse: 68 Respirations: 16 Pulse Ox (%): 96 - Physical Exam General: Alert, In no apparent distress, Oriented x3 Respiratory: Clear to auscultation bilaterally, Normal air movement Cardiovascular: Regular rate/rhythm, Normal S1 S2, No murmurs Gastrointestinal: Normal bowel sounds, Soft and benign, Non-distended, No tenderness Musculoskeletal: No clubbing, No swelling, No tenderness Neurological: Sensation intact, Cranial nerves 3-12 intact - Studies Medications List Reviewed: Yes Assessment & Plan - Problems (Diagnosis) (1) Pneumonia due to 2019 novel coronavirus Current Visit: Yes Status: Acute (2) Metastatic lung cancer (metastasis from lung to other site) Current Visit: No Status: Chronic Qualifiers: Laterality: unspecified laterality Qualified Code(s): C34.90 - Malignant neoplasm of unspecified part of unspecified bronchus or lung - Plan Plan: 1. Continue supportive care 2. Continue IV vancomycin 3. Drain lung on the left side with pleural vac 4. Monitor labs closely 5. GI and DVT prophylaxis Discharge Plan: Mcfp Plan to discharge in: Greater than 2 days - Advance Directives Does patient have a Living Will: Yes Does patient have a Durable POA for Healthcare: Yes - Code Status/Comfort Care Code Status: Do Not Attempt Resuscitat Physician Review: Patient Assessed, Agree with Above Assessment and Plan
[2020-11-26] MEDS: VANCOMYCIN 1.25 GM in NA CHLORIDE 0.9% 1 GM/250 ML BAG IVPB SCH (11:48)
--- NOTE | 2020-11-26 15:34 | PN ---
Date of Progress Note: 11/26/2020 Subjective: The patient was admitted with acute kidney injury secondary to COVID nephropathy/prerenal with hyponatremia. The patient's after hydration kidney function has been normalized. The patient is feeling better. Physical Examination: Vital Signs: Blood pressure 162/74, pulse of 79, afebrile. The patient had good urine output. Chest: Clear on the upper zone, crackles on the left base. Heart: S1, S2. Systolic murmur. Abdomen: Soft, nontender. Extremities: No edema. Neuro: Alert. No focality. Laboratory Data: WBC 7.4, H and H 11.5/34.8. Sodium 139, potassium 3.4, bicarb 30, BUN 22, creatinine 1, calcium 8.3, ferritin 464. Current Medications: The patient on include; 1. Vancomycin. 2. Breathing treatment. 3. Eliquis. 4. Losartan 50. 5. Zinc sulfate. 6. Solu-Medrol. 7. Levothyroxine. 8. Insulin. Assessment And Plan: 1. Acute kidney injury on chronic kidney disease secondary to COVID nephropathy, prerenal, recovered, resolved. 2. Chronic kidney disease secondary to diabetes and hypertension, status post acute kidney injury, recovered, resolved, back to baseline. 3. Hypertension, not controlled. I am going to start the patient on carvedilol for better blood pressure control. 4. Hypokalemia. We will supplement. 5. Hyponatremia, depletional, resolved. time spend discussing with the patient face to face , placing order , discusse with the patient and other steam table associate including hospitalist 45 min. KRISTIN Voice ID: [id number] Report ID: [id number] HARRIS
[2020-11-26] MEDS: KCL IV SCH ×2 (16:08→17:03)
[2020-11-26] MEDS: MELATONIN 3 MG TABLET PO SCH (21:00)
[2020-11-26] MEDS: carvediloL 6.25 MG TAB PO SCH (21:44)
[2020-11-27 05:46] LABS: Hematocrit 33.6 % (36.0-45.0); MPV 8.7 fL (7.6-11.3); RBC Red Blood Cell Count 4.38 M/uL (3.86-4.86)
[2020-11-27 05:49] LABS: C-Reactive Protein 8.21 mg/L (<3.00); Ferritin 340.5 ng/mL (8-388); Potassium 3.7 mmol/L (3.5-5.1)
[2020-11-27] MEDS: INSULIN -REGULAR HUMAN 50 UNIT/0.5 ML ML SQ SCH ×4 (07:30→20:49)
[2020-11-27] MEDS: THIAMINE HCL 100 MG TABLET PO SCH ×2 (09:21→20:47)
[2020-11-27] MEDS: VITAMIN D 1000 UNIT TAB PO SCH (09:21)
[2020-11-27] MEDS: carvediloL 6.25 MG TAB PO SCH ×2 (09:21→20:49)
[2020-11-27] MEDS: LOSARTAN POTASSIUM 50 MG TABLET PO SCH ×2 (09:21→20:49)
[2020-11-27] MEDS: APIXABAN 5 MG TABLET PO SCH ×2 (09:21→20:48)
[2020-11-27] MEDS: ZINC SULFATE 220 MG CAP PO SCH (09:21)
[2020-11-27] MEDS: METHYLPREDNISOLONE 125 MG INJ IV SCH ×2 (09:22→20:49)
[2020-11-27] MEDS: LACTOBACILLUS/ACIDOPHILUS TAB PO SCH ×3 (09:22→20:48)
[2020-11-27] MEDS: ESCITALOPRAM 20 MG TAB PO SCH (09:22)
[2020-11-27] MEDS: FAMOTIDINE 20 MG TAB PO SCH ×2 (09:22→20:48)
[2020-11-27] MEDS: DICYCLOMINE HCL 10 MG CAP PO SCH ×3 (09:22→20:48)
[2020-11-27] MEDS: THYROID 30 MG TAB PO SCH (09:22)
[2020-11-27] MEDS: INSULIN GLARGINE 100 UNITS/ML SQ SCH ×2 (09:23→20:47)
[2020-11-27] MEDS ORDERED: POTASSIUM CL SA 10 MEQ TAB PO ONE (10:17)
[2020-11-27] MEDS: MELATONIN 3 MG TABLET PO SCH (20:48)
--- NOTE | 2020-11-27 21:08 | PN ---
Date of Progress Note: 11/27/2020 Subjective: The patient was admitted with COVID pneumonia, had acute kidney injury secondary to prerenal and recovered, resolved. Objective: Vital Signs: When I saw the patient, blood pressure 173/77, pulse of 66 afebrile. The patient had good urine output, voiding. Chest: Faint rales on the base. Heart: S1, S2, regular. Abdomen: Soft, nontender. Extremities: Trace edema. Neurologic: Alert, confused. Laboratory Data: H and H 10.9/33.6. Sodium 141, potassium 3.7, bicarb 33, BUN 21, creatinine 0.9, calcium 8.1. Current Medications: The patient on include, 1. Losartan 50 b.i.d. 2. Carvedilol 6.25. 3. Doxycycline. 4. Albuterol. 5. Tylenol. 6. Citalopram. 7. Zinc sulfate. 8. Pepcid. 9. Levothyroxine. 10. Morphine. Assessment And Plan: 1. Acute kidney injury secondary to prerenal, recovered, resolved. 2. Chronic kidney disease secondary to diabetes and hypertension nephrosclerosis, status post acute kidney injury, recovered, back to baseline, normalized. 3. Hypokalemia. We will supplement. 4. Hyponatremia secondary to depletional, resolved. 5. COVID pneumonia. Follow up with the primary. time spend discussing with the patient face to face , placing order , discusse with the patient and other submarine advisory team watch officer including hospitalist 45 min. KRISTIN Voice ID: [id number] Report ID: [id number] HARRIS
[2020-11-27] MEDS: VANCOMYCIN 1.25 GM in NA CHLORIDE 0.9% 1 GM/250 ML BAG IVPB SCH (23:31)
[2020-11-28] MEDS: HYDRALAZINE HCL 20 MG/ML VIAL IV PRN (04:57)
[2020-11-28] MEDS: INSULIN -REGULAR HUMAN 50 UNIT/0.5 ML ML SQ SCH ×4 (07:30→21:00)
[2020-11-28] MEDS: DICYCLOMINE HCL 10 MG CAP PO SCH ×3 (08:39→21:00)
[2020-11-28] MEDS: THYROID 30 MG TAB PO SCH (08:39)
[2020-11-28] MEDS: INSULIN GLARGINE 100 UNITS/ML SQ SCH ×2 (08:39→21:01)
[2020-11-28] MEDS: ZINC SULFATE 220 MG CAP PO SCH (08:40)
[2020-11-28] MEDS: LOSARTAN POTASSIUM 50 MG TABLET PO SCH ×2 (08:40→21:01)
[2020-11-28] MEDS: FAMOTIDINE 20 MG TAB PO SCH ×2 (08:40→21:00)
[2020-11-28] MEDS: APIXABAN 5 MG TABLET PO SCH ×2 (08:40→21:01)
[2020-11-28] MEDS: LACTOBACILLUS/ACIDOPHILUS TAB PO SCH ×3 (08:40→21:01)
[2020-11-28] MEDS: METHYLPREDNISOLONE 125 MG INJ IV SCH ×2 (08:40→21:04)
[2020-11-28] MEDS: ESCITALOPRAM 20 MG TAB PO SCH (08:40)
[2020-11-28] MEDS: VITAMIN D 1000 UNIT TAB PO SCH (08:40)
[2020-11-28] MEDS: carvediloL 6.25 MG TAB PO SCH ×2 (08:41→21:00)
[2020-11-28] MEDS: THIAMINE HCL 100 MG TABLET PO SCH ×3 (08:41→21:00)
[2020-11-28] MEDS ORDERED: METOPROLOL TARTRATE 5 MG/5 ML INJ IV STA ×2 (11:36→12:43)
[2020-11-28] MEDS: METOPROLOL TARTRATE 5 MG/5 ML INJ IV SCH ×2 (11:50→11:53)
[2020-11-28] MEDS ORDERED: METOPROLOL TARTRATE 5 MG/5 ML INJ IV ONE (11:56)
[2020-11-28] MEDS ORDERED: NITROGLYCERIN 0.4 MG/TAB SL PRN (11:57)
[2020-11-28 12:45] LABS: Absolute Lymphocytes (CBC) 0.5 K/uL (0.7-4.9); Basophils % 0.1 % (0-1.3); Hematocrit 36.7 % (36.0-45.0); Lymphocytes % 6.9 % (15.3-44.8); MPV 9.2 fL (7.6-11.3); RBC Red Blood Cell Count 4.79 M/uL (3.86-4.86)
[2020-11-28 13:10] LABS: Albumin 2.3 g/dL (3.4-5.0); Bilirubin Total 0.6 mg/dL (0.2-1.0); Magnesium 2.1 mg/dL (1.8-2.4); Phosphorus 1.9 mg/dL (2.5-4.9); Potassium 3.2 mmol/L (3.5-5.1)
[2020-11-28] MEDS: MORPHINE 2 MG/ML SYR IV PRN (13:51)
[2020-11-28] MEDS ORDERED: DIGOXIN 0.25 MG/ML AMP IV ONE (14:50)
[2020-11-28] MEDS ORDERED: POTASSIUM PHOS 30 MM in NA CHLORIDE 0.9% 500 ML IV ONE (15:30)
[2020-11-28] MEDS: MELATONIN 3 MG TABLET PO SCH (21:00)
[2020-11-28] MEDS ORDERED: MELATONIN 5 MG TABLET PO ONE (21:27)
--- NOTE | 2020-11-29 01:05 | PN ---
Date of Progress Note: 11/28/2020 Subjective: The patient was admitted with COVID pneumonia and acute kidney injury secondary to COVID nephropathy, recovered, resolved. The patient is still confused today. Had atrial fibrillation with RVR. Objective: Vital Signs: Blood pressure 145/70, pulse of 110, afebrile. Chest: Faint crackles at bilateral base. Heart: S1, S2. Systolic murmur, regular, tachycardic. Abdomen: Soft, nontender. Extremities: No edema. Neuro: Alert, confused. Laboratory Data: WBC 7.9, H and H 11.8/36. Sodium 142, potassium 3.2, bicarb 32, BUN 23, creatinine 1, calcium 8.2, phosphorus 1.9. Current Medications: The patient on include, 1. Vancomycin. 2. Eliquis. 3. Digoxin. 4. Losartan 50 b.i.d. 5. Metoprolol. 6. Pepcid. 7. Solu-Medrol. 8. Cholecalciferol. 9. Thiamin. Assessment And Plan: 1. Acute kidney injury secondary to COVID nephropathy, recovered, resolved. 2. Hypertension uncontrolled with the presence of atrial fibrillation. We will give metoprolol and place the patient on nitroglycerin patch. 3. Hypokalemia. We will supplement. 4. Hypophosphatemia. We will supplement. 5. Atrial fibrillation with rapid ventricular rate. We will give the patient metoprolol. We will consult Cardiology. Follow up with hospitalist. 6. COVID pneumonia. Continue current treatment. time spend discussing with the patient face to face , placing order , discusse with the patient and other child study team director including hospitalist 45 min. KRISTIN Voice ID: [id number] Report ID: [id number] HARRIS
[2020-11-29] MEDS: INSULIN -REGULAR HUMAN 50 UNIT/0.5 ML ML SQ SCH ×4 (07:30→21:00)
[2020-11-29] MEDS: THYROID 30 MG TAB PO SCH (07:30)
[2020-11-29] MEDS: METOPROLOL TAR 50 MG TAB PO ONE ×2 (07:50→08:48)
--- NOTE | 2020-11-29 07:53 | EKG ---
Test Date: 2020-11-28 Test Time: 12:00:43 Sticker Hand: YA MEASUREMENT RESULTS: Intervals: Rate: 109 TX: QRSD: 64 QT: 418 QTc: 562 [place]: P: TX: QRS: -21 T: -50 INTERPRETIVE STATEMENTS: Atrial fibrillation with rapid ventricular response Anteroseptal infarct, age undetermined Abnormal ECG Compared to ECG 11/23/2020 11:05:05 Sinus rhythm no longer present Ventricular premature complex(es) no longer present Myocardial infarct finding still present Electronically Signed On 11-29-20 07:49:44 INFORMATICS NURSE SPECIALIST by Maxwell Cruz
--- NOTE | 2020-11-29 07:54 | P.PN ---
Date of Service: 11/26/20 Subjective Subjective: Patient doing well today. We drained off about 550 cc of pleural fluid. Will repeat in the next 48 hr if worsening. Review of Systems 10-point ROS is otherwise unremarkable Physical Examination - Vital Signs Reviewed - Physical Exam General: Alert, In no apparent distress, Oriented x3 Respiratory: Clear to auscultation bilaterally, Normal air movement Cardiovascular: Regular rate/rhythm, Normal S1 S2, No murmurs Gastrointestinal: Normal bowel sounds, Soft and benign, Non-distended, No tenderness Musculoskeletal: No clubbing, No swelling, No tenderness Neurological: Sensation intact, Cranial nerves 3-12 intact Assessment & Plan - Problems (Diagnosis) (1) Pneumonia due to 2019 novel coronavirus Current Visit: Yes Status: Acute (2) Metastatic lung cancer (metastasis from lung to other site) Current Visit: No Status: Chronic Qualifiers: Laterality: unspecified laterality Qualified Code(s): C34.90 - Malignant neoplasm of unspecified part of unspecified bronchus or lung - Plan 1. Continue supportive care 2. Continue IV vancomycin 3. PleurX catheter on the left 4. Monitor labs closely 5. Continue anti coagulation 6. GI and DVT prophylaxis
--- NOTE | 2020-11-29 08:00 | P.PN ---
Date of Service: 11/27/20 Subjective Subjective: Patient's oxygen requirements worsen. Continue monitoring closely. Patient has numerous comorbidities and her long-term prognosis is poor in light of her cancer diagnosis. She really has not been able to stay out of the hospital over the last month. Now with her COVID-19 diagnosis concern for her prognosis. Review of Systems 10-point ROS is otherwise unremarkable Physical Examination - Vital Signs Reviewed - Physical Exam General: Alert, In no apparent distress, Oriented x3 Respiratory: Clear to auscultation bilaterally, Normal air movement Cardiovascular: Regular rate/rhythm, Normal S1 S2, No murmurs Gastrointestinal: Normal bowel sounds, Soft and benign, Non-distended, No tenderness Musculoskeletal: No clubbing, No swelling, No tenderness Neurological: Sensation intact, Cranial nerves 3-12 intact Assessment & Plan - Problems (Diagnosis) (1) Pneumonia due to 2019 novel coronavirus Current Visit: Yes Status: Acute (2) Metastatic lung cancer (metastasis from lung to other site) Current Visit: No Status: Chronic Qualifiers: Laterality: unspecified laterality Qualified Code(s): C34.90 - Malignant neoplasm of unspecified part of unspecified bronchus or lung (3) 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 Continue supportive care 2. Continue IV vancomycin for resistant UTI 3. PleurX catheter on the left; therapeutic thoracentesis at times 4. Monitor labs closely 5. Continue anti coagulation 6. GI and DVT prophylaxis
--- NOTE | 2020-11-29 08:08 | P.PN ---
Date of Service: 11/28/20 Subjective Subjective: Patient went into atrial fibrillation. Given Lopressor and IV digoxin. Cardiology consultation. Review of Systems 10-point ROS is otherwise unremarkable Physical Examination - Vital Signs Reviewed - Physical Exam General: Alert, In no apparent distress, Oriented x3 Respiratory: Clear to auscultation bilaterally, Normal air movement Cardiovascular: Regular rate/rhythm, Normal S1 S2, No murmurs Gastrointestinal: Normal bowel sounds, Soft and benign, Non-distended, No tenderness Musculoskeletal: No clubbing, No swelling, No tenderness Neurological: Sensation intact, Cranial nerves 3-12 intact Assessment & Plan - Problems (Diagnosis) (1) Pneumonia due to 2019 novel coronavirus Current Visit: Yes Status: Acute (2) Metastatic lung cancer (metastasis from lung to other site) Current Visit: No Status: Chronic Qualifiers: Laterality: unspecified laterality Qualified Code(s): C34.90 - Malignant neoplasm of unspecified part of unspecified bronchus or lung (3) Multi-drug resistant UTI Current Visit: No Status: Chronic (4) Type 2 DM Current Visit: No Status: Chronic (5) Atrial fibrillation Current Visit: Yes Status: Acute - Plan 1. Started IV beta-minal therapy along with IV digoxin. Will give long-acting beta-minal therapy. Currently on carvedilol but went into atrial fibrillation. Will try it Lopressor and await Cardiology recommendation. May do an echocardiogram as well. 2. Continue IV vancomycin for resistant UTI will Dc in 24 hr 3. PleurX catheter on the left; will repeat chest x-ray and see if we need to do repeat therapeutic thoracentesis again 4. Monitor labs closely 5. Continue anti coagulation 6. GI and DVT prophylaxis
[2020-11-29] MEDS ORDERED: METOPROLOL TARTRATE 5 MG/5 ML INJ IV ONE (09:00)
[2020-11-29] MEDS: APIXABAN 5 MG TABLET PO SCH ×3 (09:00→21:00)
[2020-11-29] MEDS: LOSARTAN POTASSIUM 50 MG TABLET PO SCH ×3 (09:00→21:00)
[2020-11-29] MEDS ORDERED: METOPROLOL TARTRATE 5 MG/5 ML INJ IV PRN (09:00)
[2020-11-29] MEDS: THIAMINE HCL 100 MG TABLET PO SCH ×3 (09:00→21:00)
[2020-11-29] MEDS: VITAMIN D 1000 UNIT TAB PO SCH (09:00)
[2020-11-29] MEDS: LACTOBACILLUS/ACIDOPHILUS TAB PO SCH ×4 (09:00→21:00)
[2020-11-29] MEDS: FAMOTIDINE 20 MG TAB PO SCH ×3 (09:00→21:00)
[2020-11-29] MEDS: ESCITALOPRAM 20 MG TAB PO SCH (09:00)
[2020-11-29] MEDS: ZINC SULFATE 220 MG CAP PO SCH (09:00)
[2020-11-29] MEDS: DICYCLOMINE HCL 10 MG CAP PO SCH ×4 (09:00→21:00)
[2020-11-29] MEDS: INSULIN GLARGINE 100 UNITS/ML SQ SCH ×2 (09:25→21:00)
[2020-11-29] MEDS: METHYLPREDNISOLONE 125 MG INJ IV SCH (09:27)
[2020-11-29] MEDS: VANCOMYCIN 1.25 GM in NA CHLORIDE 0.9% 1 GM/250 ML BAG IVPB SCH (10:59)
--- NOTE | 2020-11-29 11:22 | P.PN ---
Subjective Date of Service: 11/29/20 Chief Complaint: Almanzar virus pneumonia subjective Pt is a poor historian Hx obtained from chart An 80-year-old woman with past medical history of metastatic lung cancer with chonic malignane effusions S/P pleur-evac, hypertension and diabetes mellitus, Pt presented because of nausea vomiting with increasing weakness and decreased p.o. in ER pt was hypoxic , she was tested positive for COVID 19 , earlier this wee today HR better controlled now Poor oral intake will monitor HR and consider to increase metoprolol Prognosis guarded to poor Review of Systems: unable to provide Physical exam general: awake , minimally communicative Neck; Supple, No elevated JVD hear: RRR, normal S1,2 no murmur or rub Chest: CTAB, no rales or wheezes , Lt sided port Abdomen: Soft , Nt Extremities no edema A/p Hypokalemia and Hypophophatemia due to poor oral intake replace prn Afib with RVR rate better controlled now on Digoxin and metoprolol HTN cont current meds metastatic lung CA with Pleur-evac fluid removal prn elevated troponin cont to trend Asymptomatic COVID19 cont steroids and O2 prognosis guarded total time spent 35min Physical Examination - Vital Signs Temperature: 97.9 F Blood Pressure: 162/85 Pulse: 104 Respirations: 20 Pulse Ox (%): 92 - Studies Medications List Reviewed: Yes Assessment And Plan Physician Review: Patient Assessed, Agree with Above Assessment and Plan
[2020-11-29] MEDS: HYDRALAZINE HCL 20 MG/ML VIAL IV PRN (12:45)
--- NOTE | 2020-11-29 15:52 | RAD REPORT ---
EXAM DESCRIPTION: CT - Head Brain Wo Cont - 11/29/2020 3:20 pm CLINICAL HISTORY: altered mental status Headache, drowsiness COMPARISON: Head Brain Wo Cont dated 11/14/2020; Head Brain Wo Cont dated 11/09/2020 TECHNIQUE: All CT scans are performed using dose optimization technique as appropriate and may inclu de automated exposure control or mA/KV adjustment according to patient size. FINDINGS: No intracranial hemorrhage, hydrocephalus or extra-axial fluid collection.Mild to moderate generalized brain atrophy.No areas of brain edema or evidence of midline shift. The paranasal sinuses and mastoids are clear. The calvarium is intact. IMPRESSION: No acute intracranial abnormality.
[2020-11-29] MEDS ORDERED: MORPHINE 2 MG/ML SYR IV ONE (16:05)
[2020-11-29] MEDS ORDERED: MORPHINE 2 MG/ML SYR IV PRN (16:05)
[2020-11-29] MEDS ORDERED: FENTANYL CITR 100 MCG/2 ML IV ONE (16:20)
[2020-11-29 16:52] LABS: Magnesium 1.9 mg/dL (1.8-2.4); Phosphorus 2.9 mg/dL (2.5-4.9); Potassium 3.1 mmol/L (3.5-5.1)
[2020-11-29] MEDS: carvediloL 12.5 MG TAB PO SCH (17:48)
[2020-11-29] MEDS ORDERED: METOPROLOL TAR 25 MG TAB PO SCH (18:00)
[2020-11-29] MEDS: KCL 20 MEQ/100 mL IVPB 20 MEQ/100 ML BAG IV SCH ×2 (18:09→20:05)
[2020-11-29] MEDS: MELATONIN 3 MG TABLET PO SCH ×2 (20:08→21:00)
[2020-11-29] MEDS: METHYLPREDNISOLONE 40 MG INJ IV SCH (20:09)
--- NOTE | 2020-11-30 01:14 | CON ---
Date of Consultation: 11/29/2020 Reason For Consultation: Atrial fibrillation, elevated troponin. History Of Present Illness: Ms. Smith is an 80-year-old woman who was admitted with COVID. Has a h istory of lung cancer, diabetes. She is a do not resuscitate. I was asked to give my opinion regard ing atrial fibrillation, elevated troponin. No cardiac symptoms apparently were elicited by the tamar ent. Past Medical History: As stated above. Allergies: IODINE AND RED BERRIES. Review of Systems: Positive for being a do not resuscitate. Social History: Negative. Family History: Noncontributory. Medications: Include Eliquis, insulin, hydralazine, losartan, metoprolol, Coreg 6.25. Physical Examination: Vital Signs: Her heart rate was 93, in atrial fibrillation. She has glucose of 170. Her examination was not done by me. It was done by Dr. Zimmerman. Diagnostic Data: Showed atrial fibrillation at 93, glucose 170, troponin 0.17. Impression And Plan: Elevated troponin, secondary to atrial fibrillation and COVID. This is demand ischemia. Echocardiogram should be done. TSH should be should be checked. I agree with Eliquis. I think her Coreg dose needs to be increased to 12.5 mg b.i.d. She can still have IV metoprolol as ne eded. I would also use digoxin as needed, although she already got 0.5 mg daily. I would avoid that at this point. Continue the Eliquis, hydralazine, and losartan. We will see what her echocardiogra m shows but I think we need to plan for rate control and Eliquis. No further cardiac therapy at this point. PHAM/KIERRA Voice ID: [id number] Report ID: [id number]
[2020-11-30] MEDS: HYDRALAZINE HCL 20 MG/ML VIAL IV PRN (04:50)
[2020-11-30 05:18] LABS: Potassium 3.6 mmol/L (3.5-5.1)
[2020-11-30] MEDS: carvediloL 12.5 MG TAB PO SCH ×2 (05:34→17:18)
[2020-11-30] MEDS ORDERED: KCL 20 MEQ/100 mL IVPB 20 MEQ/100 ML BAG IV SCH (06:00)
[2020-11-30] MEDS: INSULIN -REGULAR HUMAN 50 UNIT/0.5 ML ML SQ SCH ×4 (07:30→21:27)
[2020-11-30] MEDS: METHYLPREDNISOLONE 40 MG INJ IV SCH ×2 (08:01→21:26)
[2020-11-30] MEDS: LACTOBACILLUS/ACIDOPHILUS TAB PO SCH ×3 (08:54→21:26)
[2020-11-30] MEDS: THYROID 30 MG TAB PO SCH (08:54)
[2020-11-30] MEDS: VITAMIN D 1000 UNIT TAB PO SCH (08:54)
[2020-11-30] MEDS: FAMOTIDINE 20 MG TAB PO SCH ×2 (08:55→21:26)
[2020-11-30] MEDS: APIXABAN 5 MG TABLET PO SCH ×2 (08:55→21:27)
[2020-11-30] MEDS: DICYCLOMINE HCL 10 MG CAP PO SCH ×3 (08:55→21:26)
[2020-11-30] MEDS: ESCITALOPRAM 20 MG TAB PO SCH (08:55)
[2020-11-30] MEDS: LOSARTAN POTASSIUM 50 MG TABLET PO SCH ×2 (08:59→21:26)
[2020-11-30] MEDS: ZINC SULFATE 220 MG CAP PO SCH (09:00)
[2020-11-30] MEDS: INSULIN GLARGINE 100 UNITS/ML SQ SCH ×2 (09:00→21:27)
[2020-11-30] MEDS: THIAMINE HCL 100 MG TABLET PO SCH ×2 (09:00→21:26)
[2020-11-30] MEDS ORDERED: TAGRISSO 80 MG PO SCH (13:30)
[2020-11-30] MEDS: MELATONIN 3 MG TABLET PO SCH (21:00)
[2020-11-30] MEDS: VANCOMYCIN 1.25 GM in NA CHLORIDE 0.9% 1 GM/250 ML BAG IVPB SCH (22:26)
--- NOTE | 2020-11-30 23:19 | PN ---
Date of Progress Note: 11/30/2020 Chief Complaint: Acute on chronic kidney injury. The patient has chronic pneumonia. History Of Present Illness: The patient is an 80-year-old woman with past medical history of metasta tic lung cancer with chronic malignant pleural effusion, status post Pleur-evac, hypertension, diabet es mellitus, diabetic kidney disease. She presented because of nausea, vomiting, increasing weakness , and decreased p.o. intake. The patient was found to have hypoxemia. She has COVID positive test. She is admitted to the hospital for COVID pneumonia. The patient was found to have hypokalemia and hypophosphatemia. Due to poor p.o. intake, replacement was ordered p.r.n. Review of Systems: Unable to provide. Physical Examination: Lungs: Normal respiratory effort. Few crackles. Heart: S1, S2. Abdomen: Soft, benign. Extremities: No edema. Impression And Plan: 1.Hypokalemia and hypophosphatemia. Replacement as needed. Monitor electrolytes and renal panel. 2.Atrial fibrillation with rapid ventricular response. The patient is on digoxin and metoprolol. M onitor digoxin level. 3.Hypertension. Continue current medications. 4.Acute on chronic kidney injury, high BUN and creatinine ratio. The patient will require IV hydrat ion. Monitor fluid balance. OLIEVR/KIERRA Voice ID: [id number] Report ID: [id number]
[2020-12-01 05:11] LABS: Potassium 3.8 mmol/L (3.5-5.1)
[2020-12-01 05:11] LABS: Magnesium 2.1 mg/dL (1.8-2.4); Phosphorus 2.9 mg/dL (2.5-4.9)
[2020-12-01] MEDS: carvediloL 12.5 MG TAB PO SCH ×2 (05:46→17:04)
[2020-12-01] MEDS ORDERED: KCL 20 MEQ/100 mL IVPB 20 MEQ/100 ML BAG IV SCH (06:00)
[2020-12-01] MEDS: INSULIN -REGULAR HUMAN 50 UNIT/0.5 ML ML SQ SCH ×4 (07:30→20:09)
[2020-12-01] MEDS: VITAMIN D 1000 UNIT TAB PO SCH (08:46)
[2020-12-01] MEDS: INSULIN GLARGINE 100 UNITS/ML SQ SCH ×2 (08:46→20:09)
[2020-12-01] MEDS: DICYCLOMINE HCL 10 MG CAP PO SCH ×3 (08:47→20:07)
[2020-12-01] MEDS: LOSARTAN POTASSIUM 50 MG TABLET PO SCH ×2 (08:47→20:08)
[2020-12-01] MEDS: THYROID 30 MG TAB PO SCH (08:47)
[2020-12-01] MEDS: FAMOTIDINE 20 MG TAB PO SCH ×2 (08:48→20:07)
[2020-12-01] MEDS: APIXABAN 5 MG TABLET PO SCH ×2 (08:48→20:08)
[2020-12-01] MEDS: ZINC SULFATE 220 MG CAP PO SCH (08:48)
[2020-12-01] MEDS: METHYLPREDNISOLONE 40 MG INJ IV SCH ×2 (08:48→20:07)
[2020-12-01] MEDS: ESCITALOPRAM 20 MG TAB PO SCH (08:48)
[2020-12-01] MEDS: LACTOBACILLUS/ACIDOPHILUS TAB PO SCH ×3 (08:48→20:08)
[2020-12-01] MEDS: THIAMINE HCL 100 MG TABLET PO SCH ×2 (08:50→20:07)
[2020-12-01] MEDS ORDERED: VANCOMYCIN 1.25 GM in NA CHLORIDE 0.9% 1 GM/250 ML BAG IVPB SCH (11:00)
--- NOTE | 2020-12-01 15:40 | P.PN ---
Date of Service: 11/29/20 Subjective Subjective: Heart rate is controlled. Spoke with family and they will come and visit; hopefully mentation improves; supportive care Review of Systems 10-point ROS is otherwise unremarkable Physical Examination - Vital Signs Reviewed - Physical Exam General: Alert, In no apparent distress, Oriented x1 Respiratory: Clear to auscultation bilaterally, Normal air movement Cardiovascular: Regular rate/rhythm, Normal S1 S2, No murmurs Gastrointestinal: Normal bowel sounds, Soft and benign, Non-distended, No tenderness Musculoskeletal: No clubbing, No swelling, No tenderness Neurological: BEE; confused; opens eyes to voice; not really following commands Assessment & Plan - Problems (Diagnosis) (1) Pneumonia due to 2019 novel coronavirus Current Visit: Yes Status: Acute (2) Metastatic lung cancer (metastasis from lung to other site) Current Visit: No Status: Chronic Laterality: unspecified laterality Qualified Code(s): C34.90 - Malignant neoplasm of unspecified part of unspecified bronchus or lung (3) Multi-drug resistant UTI Current Visit: No Status: Chronic (4) Type 2 DM Current Visit: No Status: Chronic (5) Atrial fibrillation Current Visit: Yes Status: Acute - Plan 1. Continue medication for rate control; continue with Lopressor; evaluate with an echocardiogram 2. DC IV vancomycin; completed IV antibiotics 3. PleurX catheter on the left; will repeat thoracentesis in 1 week 4. Monitor labs closely 5. Continue anti coagulation 6. GI and DVT prophylaxis
--- NOTE | 2020-12-01 15:43 | P.PN ---
Date of Service: 11/30/20 Subjective Subjective: More awake and alert; no complaints; Review of Systems 10-point ROS is otherwise unremarkable Physical Examination - Vital Signs Reviewed - Physical Exam General: Alert, In no apparent distress, Oriented x1 Respiratory: Clear to auscultation bilaterally, Normal air movement Cardiovascular: Regular rate/rhythm, Normal S1 S2, No murmurs Gastrointestinal: Normal bowel sounds, Soft and benign, Non-distended, No tenderness Musculoskeletal: No clubbing, No swelling, No tenderness Neurological: BEE; pleasantly confused; following more commands; more awake Skin: Sacrum stage 2 decubitus Assessment & Plan - Problems (Diagnosis) (1) Pneumonia due to 2019 novel coronavirus Current Visit: Yes Status: Acute (2) Metastatic lung cancer (metastasis from lung to other site) Current Visit: No Status: Chronic Laterality: unspecified laterality Qualified Code(s): C34.90 - Malignant neoplasm of unspecified part of unspecified bronchus or lung (3) Multi-drug resistant UTI Current Visit: No Status: Chronic (4) Type 2 DM Current Visit: No Status: Chronic (5) Atrial fibrillation Current Visit: Yes Status: Acute (6) Stage 2 Sacral decubitus Current Visit: Yes Status: Acute - Plan 1. Continue medication for rate control; continue with Lopressor; Echo pending 2. DC'd IV vancomycin; completed for resistant UTI 3. PleurX catheter on the left; will repeat thoracentesis in 4 days 4. Monitor labs closely 5. Continue anti coagulation 6. Spoke with daughter and continue with DNR status and supportive care; 7. Wound care to sacrum 8. GI and DVT prophylaxis
[2020-12-01] MEDS: MELATONIN 3 MG TABLET PO SCH (20:08)
--- NOTE | 2020-12-01 20:14 | P.PN ---
Date of Service: 12/01/20 Subjective Subjective: Interacting appropriately; patient without any complaints. Spoke with daughter and anticipating discharge over the next 48-72 hr. Plan to resume physical therapy Review of Systems 10-point ROS is otherwise unremarkable Physical Examination - Vital Signs Reviewed - Physical Exam General: Alert, In no apparent distress, Oriented x2-3 Respiratory: Clear to auscultation bilaterally, Normal air movement Cardiovascular: Regular rate/rhythm, Normal S1 S2, No murmurs Gastrointestinal: Normal bowel sounds, Soft and benign, Non-distended, No tenderness Musculoskeletal: No clubbing, No swelling, No tenderness Neurological: BEE; patient is interacting more appropriately; Skin: Sacrum stage 2 decubitus Assessment & Plan - Problems (Diagnosis) (1) Pneumonia due to 2019 novel coronavirus Current Visit: Yes Status: Acute (2) Metastatic lung cancer (metastasis from lung to other site) Current Visit: No Status: Chronic Laterality: unspecified laterality Qualified Code(s): C34.90 - Malignant neoplasm of unspecified part of unspecified bronchus or lung (3) Multi-drug resistant UTI Current Visit: No Status: Chronic (4) Type 2 DM Current Visit: No Status: Chronic (5) Atrial fibrillation Current Visit: Yes Status: Acute (6) Stage 2 Sacral decubitus Current Visit: Yes Status: Acute - Plan 1. Continue medication for rate control; continue with Lopressor; Echo pending 2. DC'd IV vancomycin; completed for resistant UTI 3. PleurX catheter on the left; will repeat thoracentesis pending chest x-ray 4. Monitor labs closely 5. Continue anticoagulation 6. Spoke with daughter and continue with DNR status and supportive care; however, patient has improved & possible discharge in a.m. 7. Wound care to sacrum 8. GI and DVT prophylaxis
--- NOTE | 2020-12-02 00:50 | PN ---
Date of Progress Note: 12/01/2020 Chief Complaint: Acute kidney injury. The patient has COVID pneumonia. Subjective: The patient is 80-year-old woman with past medical history of metastatic lung cancer, ch ronic malignant pleural effusion, status post Pleur-evac, hypertension, diabetes mellitus, diabetic k idney disease, stage 3 chronic kidney disease. The patient presented to the hospital with nausea, vo miting, increasing weakness, decreased p.o. intake. She was found to have hypoxemic respiratory fail ure. She has had positive COVID-19 test. The patient is admitted to the hospital for COVID pneumoni a. Review of Systems: Unobtainable. Objective: Lungs: Normal respiratory effort. Heart: S1, S2. Abdomen: Soft, benign. Extremities: No edema. Impression And Plan: 1.Acute on chronic kidney injury. High BUN and creatinine ratio. The patient will require IV hydra tion. Monitor fluid balance. Adjust IV fluids. 2.Hypertension. Continue current medications. 3.Atrial fibrillation with rapid ventricular response. The patient is on digoxin and metoprolol. M onitor digoxin level. 4.Hypokalemia and hypophosphatemia. Replacement according to lab result. Monitor renal function. EB/MODL Voice ID: [id number] Report ID: [id number]
[2020-12-02 04:54] LABS: Basophils % 0.2 % (0-1.3); Hematocrit 32.4 % (36.0-45.0); Lymphocytes % 9.9 % (15.3-44.8); MPV 9.2 fL (7.6-11.3); RBC Red Blood Cell Count 4.25 M/uL (3.86-4.86)
[2020-12-02] MEDS: carvediloL 12.5 MG TAB PO SCH ×2 (05:08→16:19)
[2020-12-02 05:13] LABS: ALT/SGPT 12 U/L (12-78); AST/SGOT 19 U/L (15-37); Albumin 2.2 g/dL (3.4-5.0); Alkaline Phosphatase 65 U/L (45-117); BUN Blood Urea Nitrogen 35 mg/dL (7-18); Bicarbonate 32 mmol/L (21-32); Bilirubin Total 0.4 mg/dL (0.2-1.0); Ferritin 537.7 ng/mL (8-388); Glucose Level 138 mg/dL (74-106); Magnesium 2.4 mg/dL (1.8-2.4); Phosphorus 2.9 mg/dL (2.5-4.9); Potassium 4.1 mmol/L (3.5-5.1); Protein, Total 5.3 g/dL (6.4-8.2); Sodium Level 137 mmol/L (136-145)
[2020-12-02 05:47] LABS: C-Reactive Protein < 2.90 mg/L (<3.00)
--- NOTE | 2020-12-02 06:51 | RAD REPORT ---
EXAM DESCRIPTION: Brandee Single View12/02/2020 5:12 am CLINICAL HISTORY: Chest pain COMPARISON: November 23, 2020 FINDINGS: Mild worsening in the bilateral pulmonary opacities. The heart is mildly enlarged. Such ve nous line with its tip in superior vena cava IMPRESSION: Mild worsening in moderate to marked bilateral pulmonary opacities likely pneumonia
[2020-12-02] MEDS: VITAMIN D 1000 UNIT TAB PO SCH (07:18)
[2020-12-02] MEDS: THIAMINE HCL 100 MG TABLET PO SCH (07:18)
[2020-12-02] MEDS: ESCITALOPRAM 20 MG TAB PO SCH (07:18)
[2020-12-02] MEDS: DICYCLOMINE HCL 10 MG CAP PO SCH ×2 (07:18→13:01)
[2020-12-02] MEDS: APIXABAN 5 MG TABLET PO SCH (07:18)
[2020-12-02] MEDS: FAMOTIDINE 20 MG TAB PO SCH (07:18)
[2020-12-02] MEDS: LOSARTAN POTASSIUM 50 MG TABLET PO SCH (07:18)
[2020-12-02] MEDS: INSULIN -REGULAR HUMAN 50 UNIT/0.5 ML ML SQ SCH ×3 (07:19→16:13)
[2020-12-02] MEDS: LACTOBACILLUS/ACIDOPHILUS TAB PO SCH ×2 (07:19→13:01)
[2020-12-02] MEDS: ZINC SULFATE 220 MG CAP PO SCH (07:19)
[2020-12-02] MEDS: THYROID 30 MG TAB PO SCH (07:19)
[2020-12-02] MEDS: INSULIN GLARGINE 100 UNITS/ML SQ SCH (07:19)
[2020-12-02] MEDS: METHYLPREDNISOLONE 40 MG INJ IV SCH (07:20)
--- NOTE | 2020-12-02 08:34 | ECHO ---
HEIGHT: 5 ft 2 in WEIGHT: 138 lb 0 oz DATE OF STUDY: 11/29/[address]: Maxwell Cruz MD 2-DIMENSIONAL: YES M.MODE: YES DOPPLER: YES COLOR FLOW: YES TDS: YES PORTABLE: DEFINITY: BUBBLE STUDY: DIAGNOSIS: ATRIAL FIBRILLATION CARDIAC HISTORY: CATHERIZATION: SURGERY: PROSTHETIC VALVE: PACEMAKER: MEASUREMENTS (cm) DIASTOLIC (NORMALS) SYSTOLIC (NORMALS) IVSd 1.0 (0.6-1.2) LA Diam (1.9-4.0) LVEF 52% LVIDd 4.2 (3.5-5.7) LVIDs 3.1 (2.0-3.5) %FS 26% LVPWd 1.0 (0.6-1.2) Ao Diam 2.6 (2.0-3.7) 2 DIMENSIONAL ASSESSMENT: RIGHT ATRIUM: NORMAL LEFT ATRIUM: NORMAL RIGHT VENTRICLE: NORMAL LEFT VENTRICLE: NORMAL TRICUSPID VALVE: NORMAL MITRAL VALVE: MITRAL ANNULAR CALCIFICATION PULMONIC VALVE: NORMAL AORTIC VALVE: SCLEROSIS PERICARDIAL EFFUSION: NONE AORTIC ROOT: NORMAL LEFT VENTRICULAR WALL MOTION: NORMAL DOPPLER/COLOR FLOW: MILD MITRAL REGURGITATION. NORMAL RIGHT VENTRICULAR SYSTOLIC PRSSURE. COMMENTS: MILD TRICUSPID REGURGITATION. NORMAL RIGHT VENTRICULAR SYSTOLIC PRESSURE. MITRAL ANNULAR CALCIFICATION. AORTIC SCLEROSIS. NORMAL LEFT VENTRICULAR SIZE AND FUNCTION. ATRIAL FIBRILLATION NOTED. TECHNOLOGIST: DERRICK RODRIGUEZ
--- NOTE | 2020-12-02 11:50 | P.DS ---
Admission Date: 11/23/20 Discharge Date: 12/02/20 Primary Care Provider: Dr. Clemente; Oncology-Dr. Delvalle Disposition: DC HOME/HOME HEALTH CARE Discharge Condition: GOOD Reason for Admission: Almanzar virus pneumonia Consultations: Pulmonary-Dr. Milligan Cardiology-Dr. Cruz Nephrology-Dr. Balderas Procedures: COVID: Positive CT Head: FINDINGS: No intracranial hemorrhage, hydrocephalus or extra-axial fluid collection.Mild to moderate generalized brain atrophy.No areas of brain edema or evidence of midline shift. The paranasal sinuses and mastoids are clear. The calvarium is intact. IMPRESSION: No acute intracranial abnormality. ECHO: EF 52% Mild mitral regurgitation CXR: COMPARISON: November 13, 2020 FINDINGS: Moderate right and [id number] left pulmonary opacities Heart is normal size. Central venous line in place IMPRESSION: Bilateral pulmonary opacities have developed since the prior exam likely pneumonia Medical Problem List: Acute respiratory failure secondary to bilateral COVID 19 pneumonia History of metastatic lung cancer with recurrent left pleural effusion now with Pleurx catheter History of urosepsis secondary to Staph with bacteremia Diabetes mellitus type 2 insulin-dependent Atrial fibrillation on chronic anti coagulation therapy Hypertension Stage II sacral decubitus Hypothyroidism Depression Brief History of Present Illness: 80-year-old female with past medical history of metastatic lung cancer, hypertension, diabetes mellitus, history of left pleural effusion status post Pleur-evac placement, recent admission for Staph related to urosepsis with bacteremia. Patient had been discharged about 1 week ago. She came to the hospital with nausea, vomiting. She was noted with positive covid infection 2 days ago. She has been having mild shortness of breath which family reports is increased from a baseline. Patient denies any diarrhea. She is awake and conversant and able to give history. On presentation due to increasing weakness she was noted with O2 sats at 85% on room air in the emergency room. Patient does not have oxygen at home. She has been admitted for acute respiratory failure secondary to covid pneumonia. Covid infection with bilateral pneumonia Metastatic lung cancer. History of recurrent Pleural effusion History of hypertension Diabetes mellitus Recent staph epidemis urosepsis Plan -Covid Pneumonia with hypoxic respiratory failure-complicating underlying metastatic lung cancer -Overall poor prognosis from Covid infection giving high mortality in this population discussed with patient and family. We start patient on empirical IV steroids, zinc as well as ivermectin -Obtain CRP ferritin levels and trend -Follow WBC trend -Start gentle IV fluid hydration with D5 NS for now despite history of diabetes mellitus -Encourage p.o. intake might need Megace -Start 2 L nasal cannula O2 and adjust as tolerated -Will consult Pulmonary -If patient remains stable with no escalating levels of supplemental oxygen in the next 24 hr she may be consider for discharge home with home O2 -Start Zofran p.r.n. for antiemetics -Advanced directive discussed, patient express DNR wishes - continue pleurx-vac drainage q2days for pleural effusion Hospital Course: Patient presented with acute respiratory failure secondary to bilateral COVID 19 pneumonia. The patient was treated in the course of her stay. Her stay was prolonged. Patient received IV antibiotic therapy, and supplementation. Her condition improved. Patient was seen by pulmonology. Patient also with history of metastatic lung cancer with recurrent left pleural effusion now with Pleurx catheter. At discharge patient without significant shortness of breath. Patient will continue with home oxygen at 2 liters/minute nasal cannula. Maintain oxygen above 93%. Patient will continue with home health at discharge. Fluid to be removed every other day by home health. At discharge the patient will continue with prednisone 20 mg 1 pill twice daily for 7 days then 1 pill once daily for 7 days. Tessalon Perles 100 mg 3 times a day as needed for cough will be provided. Patient will continue with incentive spirometer as directed. At discharge patient will continue with oral supplementation including vitamin-C 500 mg 1 pill 3 times a day, vitamin-D 2000 units daily, thiamine 100 mg 1 pill twice daily, melatonin 5 mg at bedtime, and zinc 220 mg daily. Recommend follow up with pulmonology within 1 week to follow up this hospitalization and continue her care. At discharge patient will continue with COVID 19 isolation guidelines. Patient will continue with hand washing, social distancing, and mask use. Patient also had atrial fibrillation. Cardiology was consulted. This appears stable at this time. At discharge patient will continue with carvedilol 12.5 mg 1 pill twice daily and Eliquis 5 mg 1 pill twice daily. Education provided. Recommend follow up with cardiology as directed Patient with diabetes mellitus type 2 insulin dependent. At discharge she will continue with Tresiba 28 units at bedtime. Recommend to maintain blood sugar less than 140 fasting and less than 200 after meals. Further adjustment can be done by her PCP. Patient with depression. At discharge she will continue with Lexapro 20 mg daily. Patient with hypothyroidism. At discharge she will continue with [place] Thyroid 15 mg daily. Patient with GERD. At discharge she will continue with Prilosec 20 mg daily. As mentioned above patient with history of metastatic lung cancer. At discharge she will continue with her medication of Tagrisso 80 mg daily. Recommend follow up with oncology as directed. Continue with fluid removal from PleurX catheter every other day by nursing. Patient is do not resuscitate. Patient with recent history of urosepsis and bacteremia. Patient completed course of antibiotic therapy. Recommend to continue with UTI prevention. Patient with stage II sacral decubitus. Patient treated with antibiotic therapy during the course of her stay. Continue with wound care as directed. Patient with hypertension. At discharge she will continue with losartan 50 mg daily. Recommend to maintain blood pressure less than 130/80. Further adjustment can be done by her PCP. Vital Signs/Physical Exam: Temp Pulse Resp BP Pulse Ox 97.4 F 80 16 140/80 92 12/02/20 08:00 12/02/20 08:00 12/02/20 08:00 12/02/20 08:00 12/02/20 08:00 General: Alert, In no apparent distress, Oriented x3, Cooperative HEENT: Atraumatic Neck: Supple Respiratory: Other (On 2 L per nasal cannula without significant distress) Cardiovascular: Irregular heart rate/rhythm (AFib rate controlled) Gastrointestinal: No masses, No rebound, No guarding Neurological: Normal speech, Normal strength at 5/5 x4 extr, Normal tone, Normal affect Laboratory Data at Discharge: WBC 10.10 K/uL (4.3-10.9) D 12/02/20 04:33 Hgb 10.8 g/dL (12.0-15.0) L 12/02/20 04:33 Hct 32.4 % (36.0-45.0) L 12/02/20 04:33 Plt Count 108 K/uL (152-406) L 12/02/20 04:33 PT 13.6 SECONDS (9.5-12.5) H 11/23/20 16:48 INR 1.16 11/23/20 16:48 Sodium Cancelled 12/02/20 05:00 Potassium Cancelled 12/02/20 05:00 BUN Cancelled 12/02/20 05:00 Creatinine Cancelled 12/02/20 05:00 Glucose Cancelled 12/02/20 05:00 Phosphorus 2.9 mg/dL (2.5-4.9) 12/02/20 04:33 Magnesium 2.4 mg/dL (1.8-2.4) 12/02/20 04:33 Total Bilirubin 0.4 mg/dL (0.2-1.0) 12/02/20 04:33 AST 19 U/L (15-37) 12/02/20 04:33 ALT 12 U/L (12-78) 12/02/20 04:33 Alkaline Phosphatase 65 U/L (45-117) 12/02/20 04:33 Troponin I 0.17 ng/mL (0.0-0.045) H 11/29/20 00:38 Home Medications: Escitalopram [Lexapro*] 20 mg PO DAILY 10/31/20 Insulin Degludec [Tresiba Flextouch U-100] 28 units SQ DAILY 10/31/20 Losartan Potassium 50 mg PO DAILY 11/05/20 Omeprazole 20 mg PO DAILY 11/05/20 Thyroid,Pork [[place] Thyroid] 15 mg PO DAILY 11/05/20 Ensure High Protein 237 ml PO TID 11/24/20 Hyoscyamine Sulfate [Levsin TAB*] 0.125 mg SL Q4HP PRN 11/24/20 Lactobacillus Acidophilus [Acidophilus Probiotic] 1 cap PO DAILY 11/24/20 Osimertinib Mesylate [Tagrisso] 80 mg PO 1330 11/24/20 Promethazine Tab [Phenergan*] 25 mg PO Q6HP PRN 11/24/20 traMADol HCL [Ultram*] 50 mg PO BIDP PRN 11/24/20 Apixaban [Eliquis] 5 mg PO BID #60 tablet 12/02/20 Ascorbate Calcium [Vitamin C] 500 mg PO TID #90 tablet 12/02/20 Benzonatate [Tessalon Perle*] 100 mg PO TID PRN #15 cap 12/02/20 Cholecalciferol (Vitamin D3) [Vitamin D 1000 Iu Tab*] 2,000 unit PO DAILY #60 tab 12/02/20 Melatonin 5 mg PO BEDTIME #30 tablet 12/02/20 Thiamine HCl [Vitamin B-1*] 100 mg PO BID #60 tablet 12/02/20 Zinc Sulfate [Zinc Sulfate*] 220 mg PO DAILY #30 cap 12/02/20 carvediloL [Coreg*] 12.5 mg PO BID 6AM 6PM #60 tab 12/02/20 predniSONE [Deltasone] 20 mg PO SEECOM #21 tab 12/02/20 New Medications: carvediloL [Coreg*] 12.5 mg PO BID 6AM 6PM #60 tab Apixaban [Eliquis] 5 mg PO BID #60 tablet Melatonin 5 mg PO BEDTIME #30 tablet predniSONE [Deltasone] 20 mg PO SEECOM #21 tab Benzonatate [Tessalon Perle*] 100 mg PO TID PRN #15 cap PRN Reason: Cough Thiamine HCl [Vitamin B-1*] 100 mg PO BID #60 tablet Ascorbate Calcium [Vitamin C] 500 mg PO TID #90 tablet Cholecalciferol (Vitamin D3) [Vitamin D 1000 Iu Tab*] 2,000 unit PO DAILY #60 tab Zinc Sulfate [Zinc Sulfate*] 220 mg PO DAILY #30 cap Physician Discharge Instructions: Follow up with PCP in 1 week to follow up this hospitalization. Patient presented with acute respiratory failure secondary to bilateral COVID 19 pneumonia. The patient was treated in the course of her stay. Her stay was prolonged. Patient received IV antibiotic therapy, and supplementation. Her condition improved. Patient was seen by pulmonology. Patient also with history of metastatic lung cancer with recurrent left pleural effusion now with Pleurx catheter. At discharge patient without significant shortness of breath. Patient will continue with home oxygen at 2 liters/minute nasal cannula. Maintain oxygen above 93%. Patient will continue with home health at discharge. Fluid to be removed every other day by home health. At discharge the patient will continue with prednisone 20 mg 1 pill twice daily for 7 days then 1 pill once daily for 7 days. Tessalon Perles 100 mg 3 times a day as needed for cough will be provided. Patient will continue with incentive spirometer as directed. At discharge patient will continue with oral supplementation including vitamin-C 500 mg 1 pill 3 times a day, vitamin-D 2000 units daily, thiamine 100 mg 1 pill twice daily, melatonin 5 mg at bedtime, and zinc 220 mg daily. Recommend follow up with pulmonology within 1 week to follow up this hospitalization and continue her care. At discharge patient will continue with COVID 19 isolation guidelines. Patient will continue with hand washing, social distancing, and mask use. Patient also had atrial fibrillation. Cardiology was consulted. This appears stable at this time. At discharge patient will continue with carvedilol 12.5 mg 1 pill twice daily and Eliquis 5 mg 1 pill twice daily. Education provided. Recommend follow up with cardiology as directed Patient with diabetes mellitus type 2 insulin dependent. At discharge she will continue with Tresiba 28 units at bedtime. Recommend to maintain blood sugar less than 140 fasting and less than 200 after meals. Further adjustment can be done by her PCP. Patient with depression. At discharge she will continue with Lexapro 20 mg daily. Patient with hypothyroidism. At discharge she will continue with [place] Thyroid 15 mg daily. Patient with GERD. At discharge she will continue with Prilosec 20 mg daily. As mentioned above patient with history of metastatic lung cancer. At discharge she will continue with her medication of Tagrisso 80 mg daily. Recommend follow up with oncology as directed. Continue with fluid removal from PleurX catheter every other day by nursing. Patient is do not resuscitate. Patient with recent history of urosepsis and bacteremia. Patient completed course of antibiotic therapy. Recommend to continue with UTI prevention. Patient with stage II sacral decubitus. Patient treated with antibiotic therapy during the course of her stay. Continue with wound care as directed. Patient with hypertension. At discharge she will continue with losartan 50 mg daily. Recommend to maintain blood pressure less than 130/80. Further adjustment can be done by her PCP. Diet: ADA Activity: Fall precautions Followup: Unknown,U [Primary Care Provider] - Time spent managing pt's care (in minutes): 55
[2020-12-02 15:41] VITALS: O2SAT 92
[2020-12-02 16:20] VITALS: BP 140/72
[2020-12-02 18:23] VITALS: TEMP 96.9
--- NOTE | 2020-12-02 22:34 | PN ---
Date of Progress Note: 12/02/2020 Chief Complaint: Acute kidney injury. The patient has COVID pneumonia. History Of Present Illness: The patient is an 80-year-old woman with past medical history of metasta tic lung cancer, chronic malignant pleural effusion, status post Pleur-evac, hypertension, diabetes m ellitus, diabetic kidney disease, stage 3A chronic kidney disease. The patient came to the hospital with nausea, vomiting, decreased p.o. intake. The patient was found to have hypovolemia. COVID test was negative. The patient was admitted for COVID pneumonia. Review of Systems: Unobtainable. Physical Examination: Lungs: Diminished breath sounds at bases. Heart: S1, S2. Abdomen: Soft, benign. Extremities: No edema. Impression And Plan: 1.Acute kidney injury, high BUN and creatinine ratio corresponding to prerenal azotemia. The patien t will continue hydration. 2.Hypertension. Continue current medications. Monitor blood pressure. 3.Atrial fibrillation with rapid ventricular response. The patient is on metoprolol and digoxin. M onitor digoxin level. 4.Hypokalemia and hypophosphatemia. Replacement was done according to lab result. OLIVER/KIERRA Voice ID: [id number] Report ID: [id number]
== END 2020-12-02 17:30 | disposition home health service (06) | DRG 177 ==
LOC: ER 10:46 → ERHOLD 12:54 → 4TH 20:23
PROVIDERS: ADMIT Internal Medicine; ATTEND Family Medicine
DX: U07.1 COVID-19 (principal); L89.153 Pressure ulcer of sacral region, stage 3; J12.82 Pneumonia due to coronavirus disease 2019; J96.01 Acute respiratory failure with hypoxia; R64 Cachexia; E87.1 Hypo-osmolality and hyponatremia; N17.9 Acute kidney failure, unspecified; C78.00 Secondary malignant neoplasm of unspecified lung; N39.0 Urinary tract infection, site not specified; Z16.22 Resistance to vancomycin related antibiotics; I24.8 Other forms of acute ischemic heart disease; J91.0 Malignant pleural effusion; F32.9 Major depressive disorder, single episode, unspecified; E78.5 Hyperlipidemia, unspecified; E87.6 Hypokalemia; E03.9 Hypothyroidism, unspecified; K21.9 Gastro-esophageal reflux disease without esophagitis; D50.9 Iron deficiency anemia, unspecified; I12.9 Hypertensive chronic kidney disease with stage 1 through stage 4 chronic kidney disease, or unspecified chronic kidney disease; N18.31 Chronic kidney disease, stage 3a; E11.22 Type 2 diabetes mellitus with diabetic chronic kidney disease; E11.40 Type 2 diabetes mellitus with diabetic neuropathy, unspecified; I48.91 Unspecified atrial fibrillation; E83.39 Other disorders of phosphorus metabolism; R77.8 Other specified abnormalities of plasma proteins; Z79.52 Long term (current) use of systemic steroids; Z66 Do not resuscitate; Z79.899 Other long term (current) drug therapy; Z88.8 Allergy status to other drugs, medicaments and biological substances; Z79.4 Long term (current) use of insulin; Z91.018 Allergy to other foods; Z68.25 Body mass index [BMI] 25.0-25.9, adult; Z90.49 Acquired absence of other specified parts of digestive tract; Z79.01 Long term (current) use of anticoagulants; Z90.711 Acquired absence of uterus with remaining cervical stump; Z90.13 Acquired absence of bilateral breasts and nipples; Z79.891 Long term (current) use of opiate analgesic
CPT/HCPCS: 36415; 70450; 71045; 80048; 80053; 80202; 81001; 81003; 82565; 82728; 82947; 83605; 83735; 84100; 84484; 85025; 85027; 85610; 86140; 87070; 87077; 87086; 87088; 87186; 87205; 93005; 93306; 94760; 96365; 96375; 97110; 97112; 97116; 97161; 97530; 99213; 99284; 99285; J0360; J0610; J1160; J1642; J1650; J1720; J1815; J2270; J2405; J2550; J2920; J2930; J3010; J3370; J3480; J7040; J7050; J7120

== ENCOUNTER 2020-12-05 11:09 | Observation (INO) | payer OTHER, SELFPAY ==
--- OUTSIDE RECORDS SUMMARY | 2020-12-05 11:12 | XMS REPORT | Clinical Summary ---
:1940 Author Organization [facility] Address [address] [place] [address] Care Team Providers Name Role Phone Yanick [...] Added automatically from request for francis collado [phone] Encounters Date Type Specialty Care Team Description [...] Anesthesia Event Cardiothoracic Jaskaran Molina, Surgery 09/13/2020 [facility] General Internal Boyareddigari, Syncope a [...] Cardiothoracic Juan C, Stephanie Lentz MA 08/30/2020 [facility] Radiology Serafin Schmidt MD 08/30/2020 [facility] Radiology Serafin Schmidt MD 08/30/2020 [facility] Radiology Serafin Schmidt MD 08/30/2020 Office Visit Cardiothoracic Serafin Schmidt Lung mass (Pr imary Dx); Surgery MD Judith Pre-op testing 08/30/2020 Orders Only Cardiothoracic Provider, Stephanie Voss MD 08/30/2020 Travel 08/27/2020 Travel after 12/05/2019 Surgical History Surgery Date Site/Laterality Comments MASTECTOMY BRONCHOSCOPY, USING 09/16/2020 Chest/Left Procedure: F LEXIBLE ELECTROMAGNETIC NAVIGATION [facility] HOSCOPY, ELECTROMAGNETIC NAVIGATIONAL BRO NCHOSCOPY, BIOPSY OF LEFT U PPER LOBE MASS; Surgeon: Serafin Schmidt MD; Locat ion: [facility] OR; Serv ice: Thoracic; Later ality: Left; US, ENDOBRONCHIAL 09/16/2020 N/A Procedure: EBU S; Surgeon: Serafin Schmidt MD; Location: [facility] OR; Service: Thoraci c; Laterality: N/A; THORACENTESIS 09/16/2020 Chest/N/A Procedure: LEFT THORACENTESIS; Surgeon: Serafin Schmidt MD; Location: [facility] OR; Service: Thoraci c; Laterality: N/A; Medical [...] Comments Blood Pressure 144/60 09/19/2020 7:23 AM RECONCILIATION ANALYST Pulse 53 09/19/2020 7:23 AM RECONCILIATION ANALYST Temperature 36.8 C (98.3 F) 09/19/2020 7:23 AM RECONCILIATION ANALYST Respiratory Rate 18 09/19/2020 7:23 AM RECONCILIATION ANALYST Oxygen Saturation 95% 09/19/2020 7:23 AM RECONCILIATION ANALYST Inhaled Oxygen Concentration - - Weight 67.1 kg (148 lb) 09/13/2020 8:05 AM RECONCILIATION ANALYST Height 157.5 cm (5' 2") 09/13/2020 8:05 AM RECONCILIATION ANALYST Body Mass Index 27.07 09/13/2020 8:05 AM RECONCILIATION ANALYST Plan of Treatment Health Maintenance Due Date Last Done Comments DIABETES: RETINAL EYE EXAM 01/04/1950 DIABETIC FOOT EXAM 01/04/1950 COVID-19 VACCINE (1 of 2) 1956 SHINGLES VACCINES (#1) 01/04/1990 65+ PNEUMOCOCCAL VACCINE (1 of 1 - PPSV23) 01/04/2005 INFLUENZA VACCINE 06/01/2020 09/01/2019 Procedures Procedure Name Priority Date/Time Associated Comments Diagnosis POC GLUCOSE Routine 09/19/2020 8:45 Results for this AM RECONCILIATION ANALYST procedure are i n the results section. ESTIMATED GFR Routine 09/19/2020 5:30 Results fo r this AM RECONCILIATION ANALYST procedure are i n the results section. CBC HEMOGRAM Routine 09/19/2020 5:30 Results for this AM RECONCILIATION ANALYST procedure are i n the results section. BASIC METABOLIC PANEL Routine 09/19/2020 5:30 Re sults for this AM RECONCILIATION ANALYST procedure are i n the results section. POC GLUCOSE Routine 09/18/2020 9:02 Results for this PM RECONCILIATION ANALYST procedure are i n the results section. POC GLUCOSE Routine 09/18/2020 5:31 Results for this PM RECONCILIATION ANALYST procedure are i n the results section. POC GLUCOSE Routine 09/18/2020 1:09 Results for this PM RECONCILIATION ANALYST procedure are i n the results section. XR CHEST 1 VW PORTABLE STAT 09/18/2020 9:37 R esults for this AM RECONCILIATION ANALYST procedure are i n the results section. POC GLUCOSE Routine 09/18/2020 8:31 Results for this AM RECONCILIATION ANALYST procedure are i n the results section. POC GLUCOSE Routine 09/18/2020 5:31 Results for this AM RECONCILIATION ANALYST procedure are i n the results section. ESTIMATED GFR Routine 09/18/2020 3:00 Results fo r this AM RECONCILIATION ANALYST procedure are i n the results section. CBC HEMOGRAM Routine 09/18/2020 3:00 Results for this AM RECONCILIATION ANALYST procedure are i n the results section. BASIC METABOLIC PANEL Routine 09/18/2020 3:00 Re sults for this AM RECONCILIATION ANALYST procedure are i n the results section. POC GLUCOSE Routine 09/17/2020 11:54 Results for this PM RECONCILIATION ANALYST procedure are i n the results section. POC GLUCOSE Routine 09/17/2020 4:46 Results for this PM RECONCILIATION ANALYST procedure are i n the results section. POC GLUCOSE Routine 09/17/2020 1:04 Results for this PM RECONCILIATION ANALYST procedure are i n the results section. POC GLUCOSE Routine 09/17/2020 8:19 Results for this AM RECONCILIATION ANALYST procedure are i n the results section. ESTIMATED GFR Routine 09/17/2020 4:10 Results fo r this AM RECONCILIATION ANALYST procedure are i n the results section. PHOSPHORUS LEVEL Routine 09/17/2020 4:10 Results for this AM RECONCILIATION ANALYST procedure are i n the results section. MAGNESIUM LEVEL Routine 09/17/2020 4:10 Results for this AM RECONCILIATION ANALYST procedure are i n the results section. BASIC METABOLIC PANEL Routine 09/17/2020 4:10 Re sults for this AM RECONCILIATION ANALYST procedure are i n the results section. HC COMPLETE BLD COUNT Routine 09/17/2020 4:10 Re sults for this W/AUTO DIFF AM RECONCILIATION ANALYST procedure are i n the results section. POC GLUCOSE Routine 09/16/2020 10:05 Results for this PM RECONCILIATION ANALYST procedure are i n the results section. XR CHEST 1 VW PORTABLE STAT 09/16/2020 8:58 R esults for this PM RECONCILIATION ANALYST procedure are i n the results section. POC GLUCOSE Routine 09/16/2020 5:59 Results for this PM RECONCILIATION ANALYST procedure are i n the results section. XR CHEST 1 VW PORTABLE STAT 09/16/2020 4:27 R esults for this PM RECONCILIATION ANALYST procedure are i n the results section. SURGICAL PATHOLOGY Routine 09/16/2020 4:11 Resul ts for this REQUEST PM RECONCILIATION ANALYST procedure are i n the results section. SURGICAL PATHOLOGY Routine 09/16/2020 4:11 Resul ts for this REQUEST PM RECONCILIATION ANALYST procedure are i n the results section. BAL CELL COUNT AND Routine 09/16/2020 2:46 Resul ts for this DIFFERENTIAL PM RECONCILIATION ANALYST procedure are i n the results section. CYTOLOGY Routine 09/16/2020 1:20 Results for this (NON-GYNECOLOGICAL) PM RECONCILIATION ANALYST procedur e are in REQUEST the results section. CYTOLOGY Routine 09/16/2020 1:20 Results for this (NON-GYNECOLOGICAL) PM RECONCILIATION ANALYST procedur e are in REQUEST the results section. CYTOLOGY Routine 09/16/2020 1:20 Results for this (NON-GYNECOLOGICAL) PM RECONCILIATION ANALYST procedur e are in REQUEST the results section. CYTOLOGY Routine 09/16/2020 1:20 Results for this (NON-GYNECOLOGICAL) PM RECONCILIATION ANALYST procedur e are in REQUEST the results section. [place] AN ELECTIVE Routine 09/16/2020 1:03 Results f or this ENDOTRACHEAL AIRWAY PM RECONCILIATION ANALYST procedur e are in the results section. CYTOLOGY Routine 09/16/2020 10:45 Results for this (NON-GYNECOLOGICAL) AM RECONCILIATION ANALYST procedur e are in REQUEST the results section. CYTOLOGY Routine 09/16/2020 10:45 Results for this (NON-GYNECOLOGICAL) AM RECONCILIATION ANALYST procedur e are in REQUEST the results section. CYTOLOGY Routine 09/16/2020 10:44 Results for this (NON-GYNECOLOGICAL) AM RECONCILIATION ANALYST procedur e are in REQUEST the results section. CYTOLOGY Routine 09/16/2020 10:44 Results for this (NON-GYNECOLOGICAL) AM RECONCILIATION ANALYST procedur e are in REQUEST the results section. TTE COMPLETE, W Routine 09/16/2020 10:00 Results for this CONTRAST, W DOPPLER AM RECONCILIATION ANALYST procedur e are in ([id number]) the results section. POC GLUCOSE Routine 09/16/2020 9:16 Results for this AM RECONCILIATION ANALYST procedure are i n the results section. CT CHEST WO CONTRAST STAT 09/16/2020 8:50 Res ults for this AM RECONCILIATION ANALYST procedure are i n the results section. CYTOLOGY Routine 09/16/2020 6:12 Results for this (NON-GYNECOLOGICAL) AM RECONCILIATION ANALYST procedur e are in REQUEST the results section. CYTOLOGY Routine 09/16/2020 6:12 Results for this (NON-GYNECOLOGICAL) AM RECONCILIATION ANALYST procedur e are in REQUEST the results section. CYTOLOGY Routine 09/16/2020 6:12 Results for this (NON-GYNECOLOGICAL) AM RECONCILIATION ANALYST procedur e are in REQUEST the results section. POC GLUCOSE Routine 09/16/2020 4:25 Results for this AM RECONCILIATION ANALYST procedure are i n the results section. ABO AND RH CONFIRMATION Routine 09/16/2020 4:25 Results for this AM RECONCILIATION ANALYST procedure are i n the results section. B NATRIURETIC PEPTIDE Routine 09/16/2020 4:25 Re sults for this AM RECONCILIATION ANALYST procedure are i n the results section. HC COMPLETE BLD COUNT Routine 09/16/2020 4:25 Re sults for this W/AUTO DIFF AM RECONCILIATION ANALYST procedure are i n the results section. ESTIMATED GFR Routine 09/16/2020 4:00 Results fo r this AM RECONCILIATION ANALYST procedure are i n the results section. PHOSPHORUS LEVEL Routine 09/16/2020 4:00 Results for this AM RECONCILIATION ANALYST procedure are i n the results section. MAGNESIUM LEVEL Routine 09/16/2020 4:00 Results for this AM RECONCILIATION ANALYST procedure are i n the results section. BASIC METABOLIC PANEL Routine 09/16/2020 4:00 Re sults for this AM RECONCILIATION ANALYST procedure are i n the results section. ANTIBODY IDENTIFICATION Routine 09/16/2020 1:35 Results for this AM RECONCILIATION ANALYST procedure are i n the results section. TYPE AND SCREEN Routine 09/16/2020 1:35 Results for this AM RECONCILIATION ANALYST procedure are i n the results section. POC GLUCOSE Routine 09/16/2020 1:06 Results for this AM RECONCILIATION ANALYST procedure are i n the results section. URINE CULTURE Routine 09/15/2020 9:52 Results fo r this PM RECONCILIATION ANALYST procedure are i n the results section. POC GLUCOSE Routine 09/15/2020 8:59 Results for this PM RECONCILIATION ANALYST procedure are i n the results section. URINALYSIS SCREEN AND Routine 09/15/2020 6:55 Re sults for this MICROSCOPY, WITH REFLEX PM RECONCILIATION ANALYST proc edure are in TO CULTURE the results section. POC GLUCOSE Routine 09/15/2020 5:11 Results for this PM RECONCILIATION ANALYST procedure are i n the results section. POC GLUCOSE Routine 09/15/2020 11:52 Results for this AM RECONCILIATION ANALYST procedure are i n the results section. POC GLUCOSE Routine 09/15/2020 8:08 Results for this AM RECONCILIATION ANALYST procedure are i n the results section. ESTIMATED GFR Routine 09/15/2020 4:50 Results fo r this AM RECONCILIATION ANALYST procedure are i n the results section. PHOSPHORUS LEVEL Routine 09/15/2020 4:50 Results for this AM RECONCILIATION ANALYST procedure are i n the results section. MAGNESIUM LEVEL Routine 09/15/2020 4:50 Results for this AM RECONCILIATION ANALYST procedure are i n the results section. BASIC METABOLIC PANEL Routine 09/15/2020 4:50 Re sults for this AM RECONCILIATION ANALYST procedure are i n the results section. HC COMPLETE BLD COUNT Routine 09/15/2020 4:50 Re sults for this W/AUTO DIFF AM RECONCILIATION ANALYST procedure are i n the results section. POC GLUCOSE Routine 09/14/2020 9:19 Results for this PM RECONCILIATION ANALYST procedure are i n the results section. POC GLUCOSE Routine 09/14/2020 5:11 Results for this PM RECONCILIATION ANALYST procedure are i n the results section. POC GLUCOSE Routine 09/14/2020 1:39 Results for this PM RECONCILIATION ANALYST procedure are i n the results section. HC COMPLETE BLD COUNT STAT 09/14/2020 8:44 Re sults for this W/AUTO DIFF AM RECONCILIATION ANALYST procedure are i n the results section. POC GLUCOSE Routine 09/14/2020 7:08 Results for this AM RECONCILIATION ANALYST procedure are i n the results section. ESTIMATED GFR STAT 09/14/2020 7:08 Results fo r this AM RECONCILIATION ANALYST procedure are i n the results section. BASIC METABOLIC PANEL STAT 09/14/2020 7:08 Re sults for this AM RECONCILIATION ANALYST procedure are i n the results section. HC COMPLETE BLD COUNT Routine 09/14/2020 5:30 Re sults for this W/AUTO DIFF AM RECONCILIATION ANALYST procedure are i n the results section. HEMOGLOBIN A1C Routine 09/14/2020 5:30 Results f or this AM RECONCILIATION ANALYST procedure are i n the results section. BLOOD CULTURE, AEROBIC Routine 09/13/2020 8:40 R esults for this & ANAEROBIC PM RECONCILIATION ANALYST procedure are i n the results section. BLOOD CULTURE, AEROBIC Routine 09/13/2020 8:40 R esults for this & ANAEROBIC PM RECONCILIATION ANALYST procedure are i n the results section. POC GLUCOSE Routine 09/13/2020 7:28 Results for this PM RECONCILIATION ANALYST procedure are i n the results section. TROPONIN Timed 09/13/2020 5:00 Results for this PM RECONCILIATION ANALYST procedure are i n the results section. COVID-19 QUALITATIVE STAT 09/13/2020 3:07 Res ults for this PCR PM RECONCILIATION ANALYST procedure are i n the results section. NM LUNG PERFUSION STAT 09/13/2020 1:26 Result s for this IMAGING PM RECONCILIATION ANALYST procedure are i n the results section. CT CHEST WO CONTRAST Routine 09/13/2020 12:50 Res ults for this PM RECONCILIATION ANALYST procedure are i n the results section. TROPONIN Timed 09/13/2020 11:56 Results for this AM RECONCILIATION ANALYST procedure are i n the results section. US DUPLEX VENOUS LOWER STAT 09/13/2020 11:00 R esults for this EXTREMITY RIGHT AM RECONCILIATION ANALYST procedure ar e in the results section. ECG 12-LEAD STAT 09/13/2020 9:59 Results for this AM RECONCILIATION ANALYST procedure are i n the results section. MAGNESIUM LEVEL STAT 09/13/2020 8:18 Results for this AM RECONCILIATION ANALYST procedure are i n the results section. ESTIMATED GFR STAT 09/13/2020 8:18 Results fo r this AM RECONCILIATION ANALYST procedure are i n the results section. TROPONIN STAT 09/13/2020 8:18 Results for this AM RECONCILIATION ANALYST procedure are i n the results section. BASIC METABOLIC PANEL STAT 09/13/2020 8:18 Re sults for this AM RECONCILIATION ANALYST procedure are i n the results section. PARTIAL THROMBOPLASTIN STAT 09/13/2020 8:18 R esults for this TIME (PTT) AM RECONCILIATION ANALYST procedure are i n the results section. PROTHROMBIN TIME WITH STAT 09/13/2020 8:18 Re sults for this INR AM RECONCILIATION ANALYST procedure are i n the results section. HC COMPLETE BLD COUNT STAT 09/13/2020 8:18 Re sults for this W/AUTO DIFF AM RECONCILIATION ANALYST procedure are i n the results section. ECG 12-LEAD Routine 09/13/2020 8:14 Results for this AM RECONCILIATION ANALYST procedure are i n the results section. ECG ED PRELIMINARY Routine 09/13/2020 8:13 Resul ts for this INTERPRETATION AM RECONCILIATION ANALYST procedure are in the results section. ECG ED PRELIMINARY Routine 09/13/2020 8:13 Resul ts for this INTERPRETATION AM RECONCILIATION ANALYST procedure are in the results section. [id number] Routine 09/12/2020 MRI BRAIN W WO CONTRAST [...] BASE TO Routine 08/16/2020 MID THIGH after 12/05/2019 Results POC glucose (09/19/2020 8:45 AM RECONCILIATION ANALYST)Only the most recent of24 resultswithin the time period is included. POC glucose 174 (H) 65 - 99 mg/dL [facility] Comment: HOSPITAL Supervisor Dried Yeast Name: Germaine Vasquez Device ID: [id number] Chartable: [facility] Notified RN Specimen Blood Performing Organization Address City/[facility] Phon e Number [facility] DEPARTMENT OF PATHOLOGY AND [address] [place], [place] [phone] [address] [address] Estimated GFR (09/19/2020 5:30 AM RECONCILIATION ANALYST)Only the most recent of7 resultswithin the time period is included. [facility] Estimated GFR 39 (A) mL/min/1.73 [facility] Comment: HOSPITAL Catergory Units Interpretation G1 >=90 [...] in 2014. Specimen Plasma Performing Organization Address City/[facility] Phon e Number [facility] DEPARTMENT OF PATHOLOGY AND [address] [place], [place] [phone] [address] [address] CBC hemogram (09/19/2020 5:30 AM RECONCILIATION ANALYST)Only the most recent of2 resultswithin the time period is included. Pathologist Sig nature WBC 6.70 4.50 - 11.00 k/uL [facility] RBC 4.61 4.20 - 5.50 m/uL [facility] HGB 12.0 12.0 - 16.0 g/dL [facility] HCT 36.7 (L) 37.0 - 47.0 % [facility] MCV 79.6 (L) 82.0 - 100.0 fL [facility] MCH 26.0 (L) 27.0 - 34.0 pg [facility] MCHC 32.7 31.0 - 37.0 g/dL [facility] RDW - SD 37.4 37.0 - 55.0 fL [facility] MPV 11.4 8.8 - 13.2 fL [facility] Platelet count 207 150 - 400 k/uL [facility] Nucleated RBC 0.00 /100 WBC [facility] Specimen Plasma Performing Organization Address City/[facility] Phon e Number [facility] DEPARTMENT OF PATHOLOGY AND [address] [place] [address] [phone] [address] Basic metabolic panel (09/19/2020 5:30 AM RECONCILIATION ANALYST)Only the most recent of7 results within the time period is included. Pathologist Sig nature Sodium 140 135 - 148 mEq/L [facility] Potassium 4.0 3.5 - 5.0 mEq/L [facility] Chloride 104 98 - 112 mEq/L [facility] CO2 24 24 - 31 mEq/L [facility] Anion gap 12@ANIO 7 - 15 mEq/L [facility] BUN 12 8 - 23 mg/dL [facility] Creatinine 1.29 (H) 0.50 - 0.90 mg/dL [facility] Glucose 148 (H) 65 - 99 mg/dL [facility] Calcium 8.7 (L) 8.8 - 10.2 mg/dL [facility] Specimen Plasma Performing Organization Address City/[facility] Phon e Number [facility] DEPARTMENT OF PATHOLOGY AND [address] [place] [phone] [address] XR Chest 1 Vw Portable (09/18/2020 9:37 AM RECONCILIATION ANALYST)Only the most recent of3 results within the [...] Radiology Results Incoming - 09/18/2020 9:45 AM RECONCILIATION ANALYST EXAMINATION: XR CHEST 1 VW PORTABLE HISTORY: [...] City/State/ZIP Code Phon e Number [facility] [address] [place] [address] CBC with platelet and differential (09/17/2020 4:10 AM RECONCILIATION ANALYST)Only the most recent of6 resultswithin the time period is included. WBC 8.54 4.50 - 11.00 [facility] RBC 4.85 4.20 - 5.50 [facility] HGB 12.4 12.0 - 16.0 [facility]/dL [facility] HCT 39.2 37.0 - 47.0 % [facility] MCV 80.8 (L) 82.0 - 100.0 [facility] MCH 25.6 (L) 27.0 - 34.0 pg [facility] MCHC 31.6 31.0 - 37.0 [facility] g/dL [facility] RDW - SD 38.2 37.0 - 55.0 fL [facility] MPV 11.8 8.8 - 13.2 fL [facility] Platelet count 195 150 - 400 k/uL [facility] Nucleated RBC 0.00 /100 WBC [facility] Neutrophils 55.1 39.0 - 69.0 % [facility] Lymphocytes 29.2 25.0 - 45.0 % [facility] Monocytes 9.6 0.0 - 10.0 % [facility] Eosinophils 4.6 0.0 - 5.0 % [facility] Basophils 1.1 (H) 0.0 - 1.0 % [facility] Immature granulocytes 0.4Comment: 0.0 - 1.0 % [facility] "Immature HOSPITAL granulocytes" (promyelocytes , myelocytes, metamyelocytes ) Specimen Plasma Performing Organization Address [facility] Phon e Number [facility] DEPARTMENT OF PATHOLOGY AND [address] [place] [phone] Phosphorus level (09/17/2020 4:10 AM RECONCILIATION ANALYST)Only the most recent of3 resultswithin the time period is included. Pathologist Sig nature Phosphorus 2.4 2.4 - 4.5 mg/dL [facility] Specimen Plasma Performing Organization Address [facility] Phon e Number [facility] DEPARTMENT OF PATHOLOGY AND [address] [place] [phone] Magnesium level (09/17/2020 4:10 AM RECONCILIATION ANALYST)Only the most recent of4 resultswithin the time period is included. Pathologist Sig nature Magnesium 1.7 1.6 - 2.4 mg/dL [facility] L Specimen Plasma Performing Organization Address [facility] Phon e Number [facility] DEPARTMENT OF PATHOLOGY AND [address] [place] [phone] [place] [phone] Surgical pathology request (09/16/2020 4:11 PM RECONCILIATION ANALYST)Only the most recent of2 resultswithin the time period is included. [facility] DEPARTMENT OF PATHOLOGY AND GENOMIC MEDICINE Surgical pathology See link below for [facility] DEPARTMENT O F report PDF Lab Report PATHOLOGY AND GENOMIC MEDICINE Result status This is Supplemental [facility] DEPARTMENT OF Report for PATHOLOGY AND [id number] GENOMIC MEDICINE Specimen Narrative Performed At NEOGENOMICS [facility] DEPARTMENT OF PATHOLOGY AND GENOMIC LUNG NGS MEDICINE [id number] DOS 09/16/2020 Block B1 Performing Organization Address City/[facility] Phon e Number [facility] DEPARTMENT OF PATHOLOGY AND [address] [place] [phone] GENOMIC MEDICINE BAL cell count and differential (09/16/2020 2:46 PM RECONCILIATION ANALYST) BAL specimen source MAX BAL [facility] BAL cell count 0.040 m/mL [facility] Comment: HOSPITAL Normal ranges: Nonsmokers: 0.007 - 0.363 Smokers: 0 - 1.31 73% viability, many rbc's present BAL PAMS 3 % [facility] Comment: [facility] Normal ranges: Nonsmokers: 65 - 100 Smokers: 81 - 100 BAL PMNS 83 % [facility] Comment: [facility] Normal ranges: Nonsmokers: 0 - 3 Smokers: 0 - 2 BAL eosinophils 10 % [facility] Comment: HOSPITAL Normal ranges: Nonsmokers: 0 - 1 Smokers: 0 - 1 BAL lymphs 4 % [facility] Comment: HOSPITAL Normal ranges: Nonsmokers: 0 - 10 Smokers: 0 - 5 Specimen Fluid Narrative Performed At [facility] DEPARTMENT OF PATHOLOGY AND GENOMIC MEDICINE Performing Organization Address City/[facility] Phon e Number [facility] DEPARTMENT OF PATHOLOGY AND [address] [place] [address] 0 GENOMIC MEDICINE [address] [address] Cytology (non-gynecological) request (09/16/2020 1:20 PM RECONCILIATION ANALYST)Only the most recent of11 resultswithin the time period is included. [facility] DEPARTMENT OF PATHOLOGY AND GENOMIC MEDICINE Cytology See link below [facility] DEPARTMENT OF (non-gynecological) for PDF Lab PATHOLOGY AND report Report GENOMIC MEDICINE Result status This is Final [facility] DEPARTMENT OF Report for PATHOLOGY AND [id number] GENOMIC MEDICINE Specimen Performing Organization Address City/[facility] Phon e Number [facility] DEPARTMENT OF PATHOLOGY AND [address] [place] [phone] GENOMIC MEDICINE Airway (09/16/2020 1:03 PM RECONCILIATION ANALYST) Narrative Performed At Jaskaran Molina MD 09/16/2020 [...] and 3D if needed) (09/16/2020 10:00 AM RECONCILIATION ANALYST) Specimen Narrative Performed At [facility] Echo cardiography Report [address], [place] [address] Pat.Name: DAHIANA WEATHERS [facility].ID: [id number] .Date: 09/16/2020 Refer.MD: ANALI BURGOS MD Exam Time: 9:19:00 AM Study Type:R outine Echo Height: 62in Weight: 148lb BSA: 1.68 m2 Ag e: 1940,80Y Sex: FEMALE BP: 120/56 HR: 73 bpm Sonogr phr: ODILON Friend, RDCS Pat. Stat.:Inpatient Room: [place] [address] Study Status:Final Echo Event ID:[id number] Order ID: [id number] Reason for Study:Syncope Procedures: 2D Echo, Colorflow [...] of 5 mmHg. MEASUREMENTS: 2D Parasternal Long Stanley Ao An 1.9 cm LVPWd 1 cm [...] Radiology Results In - 2019 1:09 PM [facility] Echocardiography Report [address] [place] [address] Pat.Name: DAHIANA WEATHERS Pat.I D: [id number] .Date: 09/16/2020 Refer .MD: ANALI BURGOS MD Exam Time: 9:19:00 AM Study Type:Routine Echo Height: 62in Weigh t: 148lb BSA: 1.68 m2 Age: 3 1940,80Y Sex: FEMALE BP: 120/56 HR: 73 bpm Sonog rphr: ODILON Friend, RDCS Pat. Stat.:Inpatient Room: [place] [address] Study Status:Final Echo Event ID:[id number] Order ID: [id number] Reason for Study:Syncope Procedures: 2D Echo, Colorflow [...] of 5 mmHg. MEASUREMENTS: 2D Parasternal Long Stanley Ao An 1.9 cm LVPW d 1 [...] City/State/ZIP Code Phon e Number [facility] [address] [place] [address] CT Chest Wo Contrast (09/16/2020 8:50 AM RECONCILIATION ANALYST)Only the most recent of2 results within the time period is included. Specimen Narrative Performed At [facility] CHEST WO CONTRAST [...] Radiology Results Incoming - 09/16/2020 9:37 AM RECONCILIATION ANALYST EXAMINATION: CT CHEST WO CONTRAST CLINICAL HISTORY: [...] City/State/ZIP Code Phon e Number RAD[facility] [address] [place] [address] ABO and Rh confirmation (09/16/2020 4:25 AM RECONCILIATION ANALYST) Pathologist Sig nature ABO grouping A [facility] Rh type NEG [facility] Specimen Plasma Performing Organization Address [facility] Phon e Number [facility] DEPARTMENT OF PATHOLOGY AND [address] [place] [address] [phone] [address] B natriuretic peptide (09/16/2020 4:25 AM RECONCILIATION ANALYST) Pathologist Sig nature BNP 56 0 - 100 pg/mL [facility] Specimen Blood Performing Organization Address City/[facility] Phon e Number [facility] DEPARTMENT OF PATHOLOGY AND [address] [place] [address] [phone] [address] Antibody identification (09/16/2020 1:35 AM RECONCILIATION ANALYST) Pathologist Sig nature Antibody ID POS, Anti-D [facility] Specimen Performing Organization Address [facility] Phon e Number [facility] DEPARTMENT OF PATHOLOGY AND [address] [place] [address] [phone] [address] Type and screen (09/16/2020 1:35 AM RECONCILIATION ANALYST) Pathologist Sig nature ABO grouping A [facility] Rh type NEG [facility] Antibody screen (gel) POS [facility] Specimen Plasma Performing Organization Address [facility] Phon e Number [facility] DEPARTMENT OF PATHOLOGY AND [address] [place] [address] [phone] [address] Urine culture (09/15/2020 9:52 PM RECONCILIATION ANALYST) Urine culture Mixed danny <=10-3 col/cc [facility] IST isolate Comment: HOSPITAL Specimen Information Specimen Source: Urine Specimen Site: Catheterized Specimen Urine - Catheterized Performing Organization Address City/[facility]/ZIP [facility] Phon e Number [facility] DEPARTMENT OF PATHOLOGY AND [address] [place] [address] [phone] [address] Urinalysis screen and microscopy, with reflex to culture (09/15/2020 6:55 PM RECONCILIATION ANALYST) Specimen site Catheterized [facility] Color, UA Yellow [facility] Appearance, UA Clear [facility] Specific gravity, UA 1.017 1.001 - 1.035 [facility] pH, UA 5.0 5.0 - 8.5 [facility] Protein, UA Negative Negative [facility] Glucose, UA Negative Negative [facility] Ketones, UA Negative Negative [facility] Bilirubin, UA Negative Negative [facility] Blood, UA Negative Negative [facility] Nitrite, UA Negative Negative [facility] Urobilinogen, UA <2.0 <2.0 [facility] Leukocyte esterase, Small (A) Negative [facility] Epithelial cells, UA 2 /HPF [facility] WBC, UA 32 (H) 0 - 4 /HPF [facility] RBC, UA 3 0 - 5 /HPF [facility] Bacteria, UA Few None seen [facility] Yeast, UA None seen [facility] Yeast with None seen [facility] pseudohyphae, [facility] Hyaline casts, UA 20 /LPF [facility] Specimen Urine Performing Organization Address City/[facility] Phon e Number [facility] DEPARTMENT OF PATHOLOGY AND [address] [place] [phone] Hemoglobin A1c (09/14/2020 5:30 AM RECONCILIATION ANALYST) Pathologist [facility] Hemoglobin A1C 9.1 (H) 4.0 - 5.6 % [facility] Comment: HOSPITAL HbA1c cutoffs for diagnosing diabetes: [...] 1 diabetes. Specimen Blood Performing Organization Address City/[facility] Phon e Number [facility] DEPARTMENT OF PATHOLOGY AND [address] [place] [phone] Blood culture, aerobic & anaerobic (09/13/2020 8:40 PM RECONCILIATION ANALYST)Only the most recent of2 resultswithin the time period is included. Blood culture No growth after 5 days of incubation. JULIAN ALARCON isolate Comment: HOSPITAL Specimen Information Specimen Source: Blood Specimen Site: Left Forearm Specimen Blood Performing Organization Address City/[facility] Phon e Number [facility] DEPARTMENT OF PATHOLOGY AND [address] [place] [address] [phone] [address] Troponin (09/13/2020 5:00 PM RECONCILIATION ANALYST)Only the most recent of3 resultswithin the time period is included. [facility] Troponin 0.012 0.000 - 0.040 [facility] Comment: ng/mL HOSPITAL In patients suspected of [...] 0.020 ng/mL Specimen Plasma Performing Organization Address City/State/[facility] Code Phon e Number [facility] DEPARTMENT OF PATHOLOGY AND [address] [place], [place] [phone] [address] COVID-19 qualitative PCR (09/13/2020 3:07 PM RECONCILIATION ANALYST) Interpretation Negative results do not prec lude 2019-nCoV infection and should not be used as the sole basis for treatment or other patient management decisions. Negative results must be combined with clinical observations, patient history, and epidemiological RAMIREZ information. [facility] COVID-19 qualitative Not-Detected Not-Detecte ZOE PCR result d [facility] COVID-19 qualitative See link below for ZOE PCR PDF Lab [facility] ReportComment: Case HOSPITAL Number: [id number] Specimen Nasopharyngeal swab Performing Organization Address City/State/ZIP Code Phon e Number [facility] DEPARTMENT OF PATHOLOGY AND [address] [place], [place] [phone] GENOMIC MEDICINE [facility] [address] [place] [address] [facility] Lung Perfusion Imaging (09/13/2020 1:26 PM RECONCILIATION ANALYST) Specimen Narrative Performed At PROCEDURE: NM LUNG [...] to the CT study report for details. [facility]-[id number] Procedure Note Interface, Radiology Results Incoming - 09/13/2020 1:56 PM RECONCILIATION ANALYST PROCEDURE: NM LUNG PERFUSION IMAGING INDICATION: PE [...] to the CT study report for details. [facility]-[id number] Performing Organization Address City/State/ZIP Code Phon e Number RADIANT [address] [facility]. [place] [phone] Us duplex venous lower extremity (09/13/2020 11:00 AM RECONCILIATION ANALYST) Specimen Narrative Performed At [facility] ltrasound Laboratory Lower Extr emity Venous Report [address], [place] [address] Pat.Name: DAHIANA WEATHERS Pat.ID: [id number] .Date: 09/13/2020 Refer.MD: CAS PATE MD, RAHEEM PEREZ, ALEX Genao MD Exam Time: 10:32:00 AM Study Type:LE Venous Height: 62in Weight: 148lb BSA: 1.68 m2 Ag e: 1940,80Y Sex: FEMALE Sonogrphr: JAVIER KoromaS, Tong Gutierrez RDMS, RVT Pat. Stat.:Inpatient Room: ED19 Tape Vol: CM, CPT - 4: 61083 Echo Event ID:[id number] Order ID: [id number] Reason for Study:Leg swelling or pain, D [...] Radiology Results In - 2019 3:09 PM [facility] Vascular Ultrasound Laboratory Lower Extremity Veno us Report [address] [place] [address] Pat.Name: DAHIANA WEATHERS Pat.I D: [id number] .Date: 09/13/2020 Refer.MD: CAS PATE MD, FARHAT Jurado, ALEX Genao MD Exam Time: 10:32:00 AM Study Type:LE Venous Height: 62in Weigh t: 148lb BSA: 1.68 m2 Age: 3 1940,80Y Sex: FEMALE Sonogrphr: TITO Koroma, Tong Gutierrez RDMS, RVT Pat. Stat.:Inpatient Room: ED19 Tape Vol: CM, CPT - 4: 64752 Echo Event ID:[id number] Order ID: [id number] Reason for Study:Leg swelling or pain, D [...] visualized veins. Results given to Dr. Parsons 0114 PHYSICIAN INTERPRETATION: Venous examination of the right lower ex tremity and left groin demonstrated no evidence of venous throm bosis in the visualized veins. Normal compressibility and augmentation of all veins visualized. FINDINGS: Signed 09/13/2020 03:09 PM Santiago Samson MD, [facility] Performing Organization Address City/State/[facility] e Number [facility] [address] [place] [address] ECG 12 lead (09/13/2020 9:59 AM RECONCILIATION ANALYST)Only the most recent of2 resultswithin the time [...] left-Electronically Signed By Courtney STARR, Yanick Raza ([id number]) on [facility] MUSE 09/13/2020 7:27:19 PM Specimen Narrative Performed At This result has an attachment that is no t available. Performing Organization Address City/State/[facility] Phon e Number [facility] MUSE [address] [place] [phone] Partial thromboplastin time, activated (09/13/2020 8:18 AM RECONCILIATION ANALYST) PTT 24.1 23.0 - 36.0 [facility] Comment: [facility] PTT therapeutic range for unfractionated heparin is 61.0-112.0 seconds which corresponds to Anti-Xa 0.3-0.7 U/ml. Specimen Blood Performing Organization Address City/[facility] Phon e Number [facility] DEPARTMENT OF PATHOLOGY AND [address] [place] [address] [phone] [address] Prothrombin time with INR (09/13/2020 8:18 AM RECONCILIATION ANALYST) Pathologist [facility] Prothrombin time 14.5 11.5 - 14.5 [facility] INR 1.1 ZOE Comment: AGNES The International Normalized Ratio (INR) is a prime healthcare services HOSPITAL monitoring tool for patients who are stable on oral anticoagulant therapy. An INR of 2.0-3.0 is suggested for deep vein thrombosis/pulmonary embolism. Specimen Blood Performing Organization Address [facility] Phon e Number [facility] DEPARTMENT OF PATHOLOGY AND [address] [place] [address] [phone] [address] ECG ED Preliminary Interpretation - Not an Order (09/13/2020 8:13 AM RECONCILIATION ANALYST)Only the most recent of2 resultswithin the time period is included. Narrative Performed At Alex Leo MD 6:44 AM ECG ED Preliminary Interpretation - Not an Order Performed by: Alex Leo MD Authorized by: Alex Leo MD ECG reviewed by ED Physician in the abse nce of a stone driller helper: yes Interpretation: Interpretation: abnormal Rate: ECG rate: [...] not been [facility] interpreted by a [employer] Provider. T he exam was imported into our imaging system. Performing Organization Address City/[facility]/ZIP Code Phon e Number [facility] [address] [place] [address] PET/CT Skull Base To Mid Thigh (08/29/2020)Only the most recent of2 results within the time period is included. Narrative Performed At This result has an attachment that is no t available. NM Bone Scan External Study (08/16/2020 10:39 AM CDT) Specimen Narrative Performed At This exam was not acquired at a [facility] facility and has not been [facility] interpreted by a [employer] Provider. T he exam was imported into our imaging system. Performing Organization Address [facility] Code Phon e Number HM [facility] [address] [place] [address] CT Chest External Study (08/16/2020 8:43 AM CDT) Specimen Narrative Performed At This exam was not acquired at a Method[facility] t facility and has not been [facility] interpreted by a [employer] Provider. T he exam was imported into our imaging system. Performing Organization Address [facility] Phon e Number [facility] [address] [place] [address] CT Chest Wo Contrast Abdomen Wo Contrast Pelvis Wo Contrast (08/16/2020) Narrative Performed At This result has an attachment that is no t available. after 12/05/2019
--- OUTSIDE RECORDS SUMMARY | 2020-12-05 11:13 | XMS REPORT | Continuity of Care Document ---
:1940 Author Organization [facility] t Address [address] [place] [address] Care Team Providers Name Role Phone Bryn STARR, Connie Primary Care Physician Desmond Harmon DO Attending Clinician Doctor Unassigned, Name Attending Clinician Unavailable Kale STARR, K.H. Attending Clinician Pancho Tinsley MD Attending Clinician Brett RN, Joana Attending Clinician Unavailable Omaira MCDANIEL Attending Clinician Unavailable Ahmet STARR, R. Attending Clinician Aubrey STARR, Hill Que Attending Clinician Paula STARR, Que Attending Clinician Tatyana STARR, Y.H. Attending Clinician Jesse STARR, W. Attending Clinician Doni STARR Attending Clinician Juan C KUMAR Attending Clinician Unavailable JOHAN Attending Clinician Unavailable ARIEL Attending Clinician Unavailable AUBREY Admitting Clinician Unavailable JOHAN Admitting Clinician Unavailable ARIEL Admitting Clinician Unavailable Payers Payer Name Policy Type Policy Effective Date Expiration Date Sour ce Number UHC MEDICAREUHC [id number] 2020 [place] MEDICARE 00:00:00 [facility] [id number] -Present [place] Problems Condition Condition Condition Status Onset Resolution Last Treating Co mments Source Name Details Category Date Date Treatment Clinician Date Syncope Syncope Disease Active 2019-11 [facility] and 11-13 [facility] collapse collapse 00:00: st 00 Syncope Syncope Disease Active 2019-11 [facility] 11-13 [facility] 00:00: st 00 Lung mass Lung mass Disease Active 2019-11 Overview: [place] 0 Added Methodi 00:00: automatic st 00 ally from request for surgery [id number] Allergies, Adverse Reactions, Alerts Allergy Allergy Status Severity Reaction(s) Onset Inactive Treating Comm ents Source Name Type Date Date Clinician Iodine Propensi Active Rash 2019-11 [place] And ty to 11-13 Method[facility] Iodide adverse 00:00: st Containi reaction 00 ng s to Products drug Iodine Propensi Active Hives [place] ty to 05-18 Methodi adverse 00:00: st reaction 00 s to drug Social History Social Habit Start Date Stop Date Quantity Comments Source History [facility] Meth odist Alcohol Std Drinks History [facility] odist Alcohol Binge Sex Assigned At [facility] ethodist Tobacco use and 2020-09-18 2020-09-18 Never used [facility] ethodist exposure 00:00:00 00:00:00 Alcohol intake 2020-09-18 2020-09-18 Lifetime [facility] thodist 00:00:00 00:00:00 non-drinker (finding) History SDME 2020-08-30 2020-08-30 1 [place] Meth odist Alcohol Frequency 00:00:00 00:00:00 Smoking Status Start Date Stop Date Source [facility] Ordered Filled Start Stop Current Ordering Indication Dosage Frequency Signature Comments Components Source Medication Medication Date Date Medication? Clinician (SIG) Name Name hyoscyamine 2019-11 2020- No 1{tbl} Q.58264752 Take 1 [place] sulfate 11-19 [id number] tablet by [facility] 0.125 mg 10:27: 00:00 [...] mL) insulin pen dicyclomine 2019-11 Yes 20mg Q.49148344 Take 20 mg [facility] (BENTYL) 20 -19 [id number] by mouth 3 [facility] mg tablet 10:27: [...] 2019-11 Yes Take 1 [place] (CATAPRES) 1-18 tablet Methodi 0.1 MG 00:00: twice a st tablet 00 day for one day, then 1 tablet daily for 3 days, then stop. sulfamethox 2019-11 2020- No 1{tbl} Q.5D Take 1 [place] azole-trime -18 11-20 tablet by Me thodi thoprim 00:00: 23:[address] (BACTRIM 00 :00 every 12 DS) 800-160 (twelve) mg per hours for tablet 2 days. clonIDINE 2019-11 2020- No .1mg Q.5D Take 1 [place] (CATAPRES) -18 11-18 tablet Method i 0.1 MG 00:00: [...] QD Take 20 mg Bejarano m (LEXAPRO) 9-28 by mouth Meth [place] 20 MG 00:00: daily. st tablet 00 clonIDINE 2020- No .1mg Q.51377075 Take 0.1 [facility] (CATAPRES) 909-19 [id number] mg by M ethodi 0.1 MG 00:00: 00:[address] tablet 00 :00 (three) times a day. methscopola 2019- No 5mg QD Take 5 mg [facility]ano mine 05-30 by mouth Method[facility] (PAMINE 00:00: 00:[address] FORTE) 5 MG 00 :00 tablet insulin Yes 8U Q.10967020 Inject 8 [facility] ASPART - [id number] Units Method i (NovoLOG) 00:00: 3D under the st 100 unit/mL 00 skin 3 (3 mL) (three) insulin pen times a day with meals. insulin 2019-2019- No 36U Inject 36 [place] degludec 03-26- Units Methodi 100 unit/mL 00:00: 00:[address] (3 mL) 00 :00 skin. insulin pen furosemide 2019- No 20mg QD Take 20 mg [facility] (LASIX) 40 02-20 by mouth Meth [place] mg tablet 00:00: 00:[address] 00 :00 levothyroxi 2019- Yes 25ug QD Take 25 Franny ston [...] blood 2020-09-19 07:23:34 144 mm[Hg] Gera n [facility] pressure Diastolic blood 2020-09-19 07:23:34 60 mm[Hg] Farnaz on [facility] pressure Heart rate 2020-09-19 07:23:34 53 /min Darci Joya Body temperature 2020-09-19 07:23:34 36.83 Dawna Fuad ton [facility] Respiratory rate 2020-09-19 07:23:34 18 /min Fuad Joya Oxygen saturation in 2020-09-19 07:23:34 95 /min Darci Joya Arterial blood by Pulse oximetry Body height 2020-09-13 08:05:00 157.5 cm Darci Joya Body weight 2020-09-13 08:05:00 67.132 kg Darci Joya BMI 2020-09-13 08:05:00 27.07 kg/m2 Darci Joya Procedures Procedure Date / Time Performing Clinician Source Performed POC GLUCOSE 2020-09-19 08:45:00 HendrixAdalid Que [facility]ano Met hodist BASIC METABOLIC PANEL 2020-09-19 05:30:00 Eagle Serra CBC HEMOGRAM 2020-09-19 05:30:00 Eagle Serra ESTIMATED GFR 2020-09-19 05:30:00 Hendrix, Adalid Que [facility]jarano Met hodist POC GLUCOSE 2020-09-18 21:02:00 Hendrix, Adaliddaniel [facility]jarano Met hodist POC GLUCOSE 2020-09-18 17:31:00 Hendrix, Adaliddaniel Bejarano Met hodist POC GLUCOSE 2020-09-18 13:09:00 Hendrix, Adaliddaniel Bejarano Met hodist XR CHEST 1 VW PORTABLE 2020-09-18 09:37:58 Eagle Serra [facility] POC GLUCOSE 2020-09-18 08:31:00 Hendrix, Adalid Que [...] hodist HC COMPLETE BLD COUNT 2020-09-17 04:10:00 [place], Floryaniyah oakes [facility] W/AUTO DIFF BASIC METABOLIC PANEL 2020-09-17 04:10:00 HoffmanFlory [facility] MAGNESIUM LEVEL 2020-09-17 04:10:00 Flory Hoffman Me thodist PHOSPHORUS LEVEL 2020-09-17 04:10:00 Flory Hoffman M ethodist ESTIMATED GFR 2020-09-17 04:10:00 HendrixAdalid farah Met hodist POC GLUCOSE 2020-09-16 22:05:00 HendrixAdalid farah Met hodist XR CHEST 1 VW PORTABLE 2020-09-16 20:58:39 Flory Hoffman [facility] POC GLUCOSE 2020-09-16 17:59:00 Hendrix, Adalid Bejarano Met hodist XR CHEST 1 VW PORTABLE 2020-09-16 16:27:11 Flory Hoffman [facility] SURGICAL PATHOLOGY 2020-09-16 16:11:00 Adalid Hendrix [facility] REQUEST BAL CELL COUNT AND 2020-09-16 14:46:00 Adalid Hendrix [facility] DIFFERENTIAL CYTOLOGY 2020-09-16 13:20:00 HendrixAdalid farah Met hodist (NON-GYNECOLOGICAL) REQUEST MN AN ELECTIVE 2020-09-16 13:03:19 Jaskaran Molina Meth odist ENDOTRACHEAL AIRWAY CYTOLOGY 2020-09-16 10:45:00 HendrixAdalid farah Met hodist (NON-GYNECOLOGICAL) REQUEST CYTOLOGY 2020-09-16 10:44:00 HendrixAdalid farah Met hodist (NON-GYNECOLOGICAL) REQUEST TTE COMPLETE, W CONTRAST, 2020-09-16 10:00:00 Kendra Penaist W DOPPLER ([id number]) [place] POC GLUCOSE 2020-09-16 09:16:[address] CHEST WO CONTRAST 2020-09-16 08:50:00 Apple Agarwal [facility] [place] CYTOLOGY 2020-09-16 06:12:00 HendrixAdalid farah Met hodist (NON-GYNECOLOGICAL) REQUEST HC COMPLETE BLD COUNT 2020-09-16 04:25:00 Flory Hoffman [facility] W/AUTO DIFF B NATRIURETIC PEPTIDE 2020-09-16 04:25:00 Cipriano Powell [facility] [place] ABO AND RH CONFIRMATION 2020-09-16 04:25:00 Alea Osborne POC GLUCOSE 2020-09-16 04:25:00 Burgos, Anali Joya BASIC METABOLIC PANEL 2020-09-16 04:00:00 HoffmanFlory matos [facility] MAGNESIUM LEVEL 2020-09-16 04:00:00 HoffmanFlory matos Wi thodist PHOSPHORUS LEVEL 2020-09-16 04:00:00 HoffmanFlory matos ethodist ESTIMATED GFR 2020-09-16 04:00:00 Burgos, Anali Joya TYPE AND SCREEN 2020-09-16 01:35:00 Alea Osborne ANTIBODY IDENTIFICATION 2020-09-16 01:35:00 Burgos, Anali Faganist POC GLUCOSE 2020-09-16 01:06:00 Burgos, Anali Joya URINE CULTURE 2020-09-15 21:52:00 Darci Fritz Meth odist Alex Ryan POC GLUCOSE 2020-09-15 20:59:00 Burgos, Anali Joya URINALYSIS SCREEN AND 2020-09-15 18:55:00 Kendra Pena on [facility] MICROSCOPY, WITH REFLEX [place] TO CULTURE POC GLUCOSE 2020-09-15 17:11:00 Burgos, Anali Faganist POC GLUCOSE 2020-09-15 11:52:00 Burgos, Anali Bejarano [facility] POC GLUCOSE 2020-09-15 08:08:00 Burgos, Anali Bejarano [facility] HC COMPLETE BLD COUNT 2020-09-15 04:50:00 HoffmanFlory [facility] W/AUTO DIFF BASIC METABOLIC PANEL 2020-09-15 04:50:00 HoffmanEstephania matosca Milton oakes [facility] MAGNESIUM LEVEL 2020-09-15 04:50:00 HoffmanFlory matos Me thodist PHOSPHORUS LEVEL 2020-09-15 04:50:00 HoffmanFlory matos M ethodist ESTIMATED GFR 2020-09-15 04:50:00 Burgos, Anali [facility]jarano [facility] POC GLUCOSE 2020-09-14 21:19:00 Burgos, Anali [facility]jarano [facility] POC GLUCOSE 2020-09-14 17:11:00 Burgos, Anali Grey Bejarano [facility] POC GLUCOSE 2020-09-14 13:39:00 Burgos, Anali [facility]jarano [facility] HC COMPLETE BLD COUNT 2020-09-14 08:44:00 NwKendra rodney on [facility] W/AUTO DIFF [place] BASIC METABOLIC PANEL 2020-09-14 07:08:00 NwoguKendra on [facility] [place] ESTIMATED GFR 2020-09-14 07:08:00 Burgos, Anali Bejarano [facility] POC GLUCOSE 2020-09-14 07:08:00 Burgos, Anali Bejarano [facility] HEMOGLOBIN A1C 2020-09-14 05:30:00 Clark Castroist HC COMPLETE BLD COUNT 2020-09-14 05:30:00 Burgos, Anali montenegro [facility] W/AUTO DIFF BLOOD CULTURE, AEROBIC & 2020-09-13 20:40:00 NwoguKendraviolette [facility] ANAEROBIC [place] POC GLUCOSE 2020-09-13 19:28:00 Burgos, Anali Bejarano [facility] TROPONIN 2020-09-13 17:00:00 Darci Fritz Meth jhonathan Johnson RTony COVID-19 QUALITATIVE PCR 2020-09-13 15:07:00 Franny Fritz R. NM LUNG PERFUSION IMAGING 2020-09-13 13:26:[address] CHEST WO CONTRAST 2020-09-13 12:50:00 Apple Agarwal [facility] [place] TROPONIN 2020-09-13 11:56:00 Darci Fritz Meth odmilly Ryan US DUPLEX VENOUS LOWER 2020-09-13 11:00:00 Farnaz Fritz on [facility] EXTREMITY RIGHT Alex R. ECG 12-LEAD 2020-09-13 09:59:35 Radha Nunn on [facility] HC COMPLETE BLD COUNT 2020-09-13 08:18:00 Gera Fritz W/AUTO DIFF Alex RTony PROTHROMBIN TIME WITH INR 2020-09-13 08:18:00 Cal Fritz Alex R. PARTIAL THROMBOPLASTIN 2020-09-13 08:18:00 Farnaz Fritz on [facility] TIME (PTT) Alex R. BASIC METABOLIC PANEL 2020-09-13 08:18:00 Gera Fritz [facility] Alex R. TROPONIN 2020-09-13 08:18:00 Darci Fritz Meth odist Alex R. ESTIMATED GFR 2020-09-13 08:18:00 Ahmet Bejarano Meth odist Alex R. MAGNESIUM LEVEL 2020-09-13 08:18:00 Ahmet [place] Meth odist Alex R. ECG 12-LEAD 2020-09-13 08:14:16 Ahmet Bejarano Meth odist Alex R. ECG ED PRELIMINARY 2020-09-13 08:13:29 Darci Fritz ethodist INTERPRETATION Alex RTony [id number] 2020-09-12 00:00:00 Provider, Shanika Joya MRI BRAIN [...] Future Scheduled 2020-06-01 INFLUENZA VACCINE Gera horan [facility] Test 00:00:00 [code = INFLUENZA VACCINE] Future Scheduled 2005-01-04 65+ PNEUMOCOCCAL Bejarano [facility] Test 00:00:00 VACCINE (1 of 1 - PPSV23) [code = 65+ PNEUMOCOCCAL VACCINE (1 of 1 - PPSV23)] Future Scheduled 1990-01-04 SHINGLES VACCINES (#1) [place] [facility] Test 00:00:00 [code = SHINGLES VACCINES (#1)] Future Scheduled 1956 COVID-19 VACCINE (1 of [place] [facility] Test 00:00:00 2) [code = COVID-19 VACCINE (1 of 2)] Future Scheduled 1950-01-04 DIABETES: RETINAL EYE [place] [facility] Test 00:00:00 EXAM [code = DIABETES: RETINAL EYE EXAM] Future Scheduled 1950-01[birth year]04 DIABETIC FOOT EXAM [place] [facility] Test 00:00:00 [code = DIABETIC FOOT EXAM] Encounters Start End Encounter Admission Attending Care Care Encounter Source Date/Time Date/Time Type Type Clinicians Facility Department ID 2020-11-24 2020-11-24 Patient Faustino [facility] [id number] 00:00:00 00:00:[address] [facility] [id number] [facility] [id number] YESICA [id number] 2020-11-22 2020-11-22 Orders Doctor CONNIE [id number] 00:00:00 00:00:00 Only Unassigned, JEFFREY [id number] [place] [facility] [id number] 2020-10-18 2020-10-18 Office Kale [facility] [id number] 16:20:54 16:53:41 Visit Thomas Hayward [id number] Carmen 4.2.7.2.686 Karen [id number] [facility] 059 [facility] 2020-09-13 2020-09-19 Inpatient HENDRIX, [facility] [id number] [place] 00:00:00 00:00:00 ADALID [address] 2020-08-30 2020-08-30 Outpatient [facility] [id number] [place] 00:00:00 00:00:00 SERAFIN [address] 2020-08-30 2020-08-30 Outpatient [facility] [id number] [place] 00:00:00 00:00:00 EDWARD [address] 2020-08-30 2020-08-30 Outpatient TATYANA, [facility] [id number] [place] 00:00:00 00:00:00 EDWARD [address] 2020-08-30 2020-08-30 Outpatient TATYANA, [facility] [id number] [place] 00:00:00 00:00:00 EDWARD [address] 2016-06-15 2016-06-15 Emergency [facility] [id number] [place] 00:00:00 00:00:[address] 2016-06-09 2016-06-11 Outpatient DESH, POPPY [facility] 012 [id number] [place] 00:00:00 00:00:[address] 2015-12-31 2015-12-31 Outpatient ARIEL, [place] [id number] [place] 00:00:00 00:00:00 KESAVAN [address] 2015-12-30 2015-12-30 Outpatient ARIEL, [facility] [id number] [place] 00:00:00 00:00:00 BRETT [address] Results Test Description Test Time Test Comments Results Result Comments Source Surgical pathology request 2020-10-07 16:51:20 Test Item Value Reference Range Interpretation Comme nts Case number (test code = 2965151) [id number] Surgical pathology report (test code See link below for PDF Environmental Compliance Manager ort = 2253) Result status (test code = 9793466) This is Supplemental Report for [id number] JAIRO (test code = JAIRO) [facility] [id number] 09/16/2020Block B1 [facility] [id number] 08:45:47 Test Item Value Reference Range Interpretation Comments POC glucose (test 174 mg/dL 65-99 H Swiss Machinist N paulette: Shittu code = 21401-4) Christina Device ID: [id number] able: [facility] Notified keeper helper Interpretation Abnormal (test code = 58856-7) [facility] lmrcesmv9738-01-23 08:05:46 Test Item Value Reference Range Interpretation Comments WBC (test code = 90264-3) 6.70 4.50- 11.00 k/uL RBC (test code = 33487-7) 4.61 m/uL 4.2-5.5 HGB (test code = 718-7) 12.0 g/dL 12-16 HCT (test code = 4544-3) 36.7 % 37-47 L MCV (test code = 787-2) 79.6 fL 82-100 L MCH (test code = 785-6) 26.0 pg 27-34 L MCHC (test code = 786-4) 32.7 g/dL 31-37 RDW - SD (test code = 13585-9) 37.4 fL 37-55 MPV (test code = 85189-6) 11.4 fL 8.8-13.2 Platelet count (test code = 207 150- 400 k/uL 79220-2) Nucleated RBC (test code = 0.00 /100 WBC 48975-1) Lab Interpretation (test code = Abnormal 28572-7) Darci MethodistBasic metabolic [id number] 07:59:07 Test Item Value Reference Range Interpretation Comments Sodium (test code = 2951-2) 140 135- 148 mEq/L Potassium (test code = 2823-3) 4.0 3.5- 5.0 mEq/L Chloride (test code = 2075-0) 104 98- 112 mEq/L CO2 (test code = 8-9) 24 24- 31 mEq/L Anion gap (test code = 15421-0) 12@ANIO 7- 15 mEq/L BUN (test code = 3094-0) 12 mg/dL 8-23 Creatinine (test code = 2160-0) 1.29 mg/dL 0.5-0.9 H Glucose (test code = 2345-7) 148 mg/dL 65-99 H Calcium (test code = 28832-3) 8.7 mg/dL 8.8-10.2 L Lab Interpretation (test code = Abnormal 41160-4) Darci MethodistEstimated [id number] 07:59:07 Test Item Value Reference Range Interpretation Comments Estimated GFR (test 39 mL/min/1.73 m2 Jude bella Units code = 5488) InterpretationG 1 >=90 Claudia l or highG2 60-89 Mildly decrease dG3a 45-59 Mil dly to moderately decr xapttW8f 30-44 Moderately to s everely decreasedG4 15-29 Severe ly decreasedG5 <15 Kidney skye lureThe eGFR was calcul ated using the [facility] Kidney Disease Epidemiology Collaboration ( CKD-EPI) equation. Interpretation is based on recommendati ons of the National [facility]-Kidn ey Disease Outcome s Quality Initiat lona (NKF-KDOQI) pub lished in 2013. Lab Interpretation Abnormal (test code = 80094-3) Darci FaganistBlood culture, aerobic & [id number] 02:03:08 Test Item Value Reference Range Interpretation Comments Blood culture No growth Specimen isolate (test after 5 days InformationSpe cimen code = 600-7) of Source: BloodS pecimen incubation. Site: Left Fore arm [place] MethodistXR Chest 1 Vw [id number] 09:42:47Hm Interface, Radiology Results Incoming - 09/18/2020 9:45 AM CSTEXAMINATION: XR CHEST 1 VW PORTABLEHISTORY: recent bronchoscopy blood-tinged sputumCOMPARISON: 09/16/2020.IMPRESSION: Support Devices: None.Mediastinum: Unchanged appearance of cardiomediastinal silhouette, with atherosclerotic calcification of the aorta.Lungs:Unchanged nearly 3 cm masslike opacity of the left upper lobe.Unchanged small left pleural effusion.Slightly improved aeration of the left lower lobe, with persistent left retrocardiac opacity which may reflect atelectasis or pneumonia.No pneumothorax.Bones/Other: Degenerative changes of cervicothoracic spine partially visualized.1D2RAD_PS02[facility] MethodistCytology (non-gynecological) [id number] 20:12:25 Test Item Value Reference Range Interpretation Comments Case number (test code = [id number]) Cytology See link below for (non-gynecological) PDF Lab Report report (test code = 1178) Result status (test code This is Final Report = [id number]) for [id number] Bejarano MethodistMagnesium [id number] 08:07:08 Test Item Value Reference Range Interpretation Comments Magnesium (test code = 17489-0) 1.7 mg/dL 1.6-2.4 [place] MethodistPhosphorus [id number] 08:07:05 Test Item Value Reference Range Interpretation Comments Phosphorus (test code = 2777-1) 2.4 mg/dL 2.4-4.5 [place] MethodistCBC with platelet and [id number] 06:16:54 Test Item Value Reference Range Interpretation Comments WBC (test code = 65377-5) 8.54 4.50- 11.00 k/uL RBC (test code = 31784-0) 4.85 m/uL 4.2-5.5 HGB (test code = 718-7) 12.4 g/dL 12-16 HCT (test code = 4544-3) 39.2 % 37-47 MCV (test code = 787-2) 80.8 fL 82-100 L MCH (test code = 785-6) 25.6 pg 27-34 L MCHC (test code = 786-4) 31.6 g/dL 31-37 RDW - SD (test code = 38.2 fL 37-55 12819-3) MPV (test code = 79098-4) 11.8 fL 8.8-13.2 Platelet count (test code 195 150- 400 k/uL = 36533-3) Nucleated RBC (test code 0.00 /100 WBC = 96803-5) Neutrophils (test code = 55.1 % 39-69 19788-5) Lymphocytes (test code = 29.2 % 25-45 65419-8) Monocytes (test code = 9.6 % 0-10 64094-2) Eosinophils (test code = 4.6 % 0-5 20063-2) Basophils (test code = 1.1 % 0-1 H 00392-2) Immature granulocytes 0.4 % 0-1 "Immat ure (test code = 53097-6) granul ocytes" (promyelocytes, myelocytes, metamyelocytes) Lab Interpretation (test Abnormal code = 85210-9) Bejarano MethodistUrine [id number] 00:54:02 Test Item Value Reference Range Interpretation Comments Urine culture Mixed danny Specimen isolate (test <=10-3 col/cc InformationSp ecimen code = 25399-3) Source: Urin eSpecimen Site: Catheteri zed [place] MethodistBAL cell count and betdpvcrzekp4375-40-63 21:40:34 Test Item Value Reference Range Interpretation Comments BAL specimen source MAX BAL (test code = 46827-8) BAL cell count (test 0.040 m/mL Normal ranges: code = 15109-2) Nonsmokers: 0.007 - 0.363 Smokers: 0 - 1. 31 73% viability, many rbc's present BAL PAMS (test code = 3 % Normal ranges: 66953-7) Nonsmokers: 65 - 100 Smokers: 81 - 1 00 BAL PMNS (test code = 83 % Normal ranges: 9306-2) Nonsmokers: 0 - 3 Smok ers: 0 - 2 BAL eosinophils (test 10 % Normal ranges: code = 22477-6) Nonsmokers: 0 - 1 Smok ers: 0 - 1 BAL lymphs (test code = 4 % Norm al ranges: 49236-7) Nonsmokers: 0 - 10 Smo kers: 0 - 5 JAIRO (test code = JAIRO) BAL MAX [place] MethodistTransthoracic Echocardiogram Complete, (w Contrast, Strain and 3D if needed)2020-09-16 13:08:00Interface, Radiology Results In - 09/16/2020 1:09 PM [facility] Echocardiography Report [id number]Name: FRANTZ WEATHERS Pat.ID: [id number].Date: 09/16/2020 Refer.MD: ANALI BURGOS MDExraven Time: 9:19:00 AM Study Type:Routine Echo Height: 62in Weight: 148lb BSA: 1.68 m2 Age: 3 1940,80Y Sex: FEMALE BP: 120/56 HR: 73 bpm Sonogrphr: ODILON Friend, RDCS Pat. Stat.:Inpatient Room: [place] [address] Study Status:Final Echo Event ID:[id number] Order ID: [id number] Reason for Study:Syncope Procedures: 2D Echo, Colorflow [...] of 5 mmHg. MEASUREME NTS: 2DParasternal [place] AoAn 1.9 cm LVPWd 1 cm Ao [...] SVi 41 ml/m2 TV Pressure Gradient TV CfZdg652 cm/s TV PG 27 mmHg WALL MOTION:-------- RESTING WALL MOTION:Basal Inferoseptal wall is hypokinetic. Normal wall motion in allother carrington.Wall Index = 1.1Signed 09/16/2020 01:08 PMMary Alice Henley [place] TffdkpnnqUuljjh1767-30-34 13:03:19 Jaskaran Molina MD 09/16/2020 1:05 [address] [...] Attempts at Approach: 1[facility] MethodistCT Chest Wo [id number] 09:34:07Hm Interface, Radiology Results 09/16/2020 9:37 AM CSTEXAMINATION:CT CHEST WO CONTRASTCLINICAL [...] susp icious for malignant adenopathy. 1D2RAD_PS02[facility] MethodistAntibody [id number] 06:07:00 Test Item Value Reference Range Interpretation Comments Antibody ID (test code = 59409-9) POS, Anti-D Darci MethodistABO and Rh [id number] 06:06:00 Test Item Value Reference Range Interpretation Comments ABO grouping (test code = 883-9) A Rh type (test code = 81909-6) NEG Bejarano MethodistB natriuretic [id number] 05:53:02 Test Item Value Reference Range Interpretation Comments BNP (test code = 46382-8) 56 pg/mL 0-100 Darci MethodistType and [id number] 03:03:00 Test Item Value Reference Range Interpretation Comments ABO grouping (test code = 883-9) A Rh type (test code = 12162-1) NEG Antibody screen (gel) (test code = POS 890-4) Darci MethodistUrinalysis screen and microscopy, with reflex to culture 2020-09-15 22:06:01 Test Item Value Reference Range Interpretation Comments Specimen site (test code = Catheterized 6708700) Color, UA (test code = 5778-6) Yellow Appearance, UA (test code = Clear 5767-9) Specific gravity, UA (test code 1.017 1.001-1.035 = 5811-5) pH, UA (test code = 5803-2) 5.0 5.0-8.5 Protein, UA (test code = Negative Negative 21257-4) Glucose, UA (test code = Negative Negative 39730-2) Ketones, UA (test code = 2514-8) Negative Negative Bilirubin, UA (test code = Negative Negative 5770-3) Blood, UA (test code = 5794-3) Negative Negative Nitrite, UA (test code = 5802-4) Negative Negative Urobilinogen, UA (test code = <2.0 <2.0 85456-5) Leukocyte esterase, UA (test Small Negative A code = 5799-2) Epithelial cells, UA (test code 2 /HPF = 5787-7) WBC, UA (test code = 5821-4) 32 0- 4 /HPF H RBC, UA (test code = 02272-9) 3 0- 5 /HPF Bacteria, UA (test code = Few None seen 41215-2) Yeast, UA (test code = 38586-2) None seen Yeast with pseudohyphae, UA None seen (test code = 75352-7) Hyaline casts, UA (test code = 20 /LPF 5796-8) Lab Interpretation (test code = Abnormal 71266-7) [place] [facility] centerHemoglobin [id number] 11:41:57 Test Item Value Reference Range Interpretation Comments Hemoglobin A1C (test 9.1 % 4-5.6 H HbA1c c utoffs for code = 31276-1) diagnosing diabetes:4.0% - 5.6% = normal5.7% - 6.4% = increased risk for diabetes (prediabetes)9> =6.5% = [id number] s for glycemic contro l (ADA 2016)< 7.0% Ta rget for non adults with ganesh betes. More or less stringent targe ts may be appropriate for individual tamar ents. <7.5% Target for Children and adolescents wit h type 1 diabetes. Lab Interpretation (test Abnormal code = 11346-3) [facility] JoyaCOVID-19 qualitative [id number] 20:21:50 Test Item Value Reference Range Interpretation Comments Interpretation (test Negative results do code = 5998394) not preclude 2019-nCoV infection and should not be used as the sole basis for treatment or other patient management decisions. Negative results must be combined with clinical observations, patient history, and epidemiological information. COVID-19 qualitative Not-Detected Not-Detected PCR result (test code = 79534-8) COVID-19 qualitative See link below for C ase Number: PCR (test code = PDF Lab Report [id number]) Darci Mejía 12 [id number] 19:27:22 Test Item Value Reference Range Interpretation Comments Ventricular rate (test 93 code = 253) Atrial rate (test code 93 = 255) MN interval (test code 128 = 266) QRSD [...] are now present-QRS axis shifted left- Darci A[id number] 18:10:56 Test Item Value Reference Range Interpretation Comments Troponin (test code 0.012 ng/mL 0-0.04 In patie nts suspected = 06782-1) of having a rochelle cardial infarction, nelly [...] decreased by le ss than 0.020 ng/mL [facility] duplex venous lower [id number] 15:09:00Interface, Radiology Results In - 09/13/2020 3:09 PM [facility] Vascular Ultrasound Laboratory Lower Extremity Venous [id number] [place] [address] Pat.Name: FRANTZ WEATHERS Pat.ID: [id number] .Date: 09/13/2020 Refer.MD: CAS PATE MD, ALEX FRITZ MDExraven Time: 10:32:00 AM Study Type:LE Venous Height: 62in Weight: 148lb BSA: 1.68 m2 Age: 3 1940,80Y Sex: FEMALE Sonogrphr: TITO Koroma, Tong Gutierrez RDMS, RVTPat. Stat.:Inpatient Room: ED19 Tape Vol: CM, CPT - 4: 56457 Echo Event ID:[id number] Order ID: [id number] Reason for Study:Leg swelling or pain, DVT [...] Signed 09/13/2020 03:09 PMSantiago Samson MD, RPVI [facility] Lung Perfusion [id number] 13:53:35Hm Interface, Radiology Results - 09/13/2020 1:56 PM CSTPROCEDURE: MO LUNG PERFUSION [...] refer to the CT study report for details.[facility]-[id number] MethodistPartial thromboplastin time, activated 2020-09-13 09:09:09 Test Item Value Reference Range Interpretation Comments PTT (test code = 24.1 23.0- 36.0 [place] [address]-3) unfractionated heparin is61.0-112.0 se conds which corresponds to Anti-Xa0.3-0.7 U/ml. [facility]istProthrombin time with [id number] 09:08:33 Test Item Value Reference Range Interpretation Comments Prothrombin time (test 14.5 11.5- 14.5 sec code = 5902-2) INR (test code = 1.1 [facility] Normalized Rati o (INR) is a therapeutic m onitoring tool for patien ts who are stable on oral anticoagulant t herapy. An INR of 2.0-3.0 is suggested for d eep vein thrombosis/pulm onary embolism. [facility] ED Preliminary Interpretation - Not an [id number] 08:13:29 Test Item Value Reference Range Interpretation Comments JAIRO (test code = JAIRO) Alex Fritz MD 09/14/2020 6:44 [facility] ED Preliminary Interpretation - Not an OrderPerformed by: Alex Fritz MDAuthorized by: Alex Fritz MD ECG reviewed by ED Physician in the absence of a capsule machine operator: yes Interpretation: Interpretation: abnormal Rate: ECG rate: 88 ECG rate assessment: normal Rhythm: Rhythm: sinus rhythm Ectopy: Ectopy: PVCs PVCs: FrequentQRS: QRS axis: Normal QRS intervals: NormalConduction: Conduction: normal ST segments: ST segments: NormalT waves: T waves: normal Comments: Prolonged QT Lab Interpretation Abnormal (test code = 25822-7) [place] [facility] External [id number] 10:45:49This exam was not acquired at a [facility] facility and has not been interpreted by a [facility] Provider. The exam was imported into our imaging system.[facility] Bone Scan External [id number] 10:45:27This exam was not acquired at a [facility] facility and has not been interpreted by a [facility] Provider. The exam was imported into our imaging system.[place] [facility]PET/[facility] Whole Body External [id number] 10:45:06This exam was not acquired at a [facility] facility and has not been interpreted by a [facility] Provider. The exam was imported into our imaging system.[facility]
[2020-12-05 14:25] LABS: Absolute Lymphocytes (CBC) 1.2 K/uL (0.7-4.9); Basophils % 0.1 % (0-1.3); Hematocrit 38.8 % (36.0-45.0); Lymphocytes % 6.6 % (15.3-44.8); MPV 10.5 fL (7.6-11.3); RBC Red Blood Cell Count 5.02 M/uL (3.86-4.86)
[2020-12-05 14:26] LABS: Protime INR 1.52
[2020-12-05 14:34] LABS: Urine Blood TRACE (NEG); Urine Glucose 2+ (NEG); Urine Protein 1+ (NEG)
[2020-12-05 14:38] LABS: Albumin 2.3 g/dL (3.4-5.0); Bilirubin Direct 0.1 mg/dL (0-0.2); Bilirubin Total 0.4 mg/dL (0.2-1.0); Magnesium 2.3 mg/dL (1.8-2.4); Potassium 4.3 mmol/L (3.5-5.1); Troponin (Emerg Dept Use Only) 0.1 ng/mL (0.0-0.045)
[2020-12-05 14:39] LABS: Urine Bacteria <20 /HPF (<20); Urine RBC <5 /HPF (NONE SEEN); Urine Yeast MANY (NONE SEEN); Urine Yeast with Hyphae PRESENT
--- NOTE | 2020-12-05 15:23 | RAD REPORT ---
EXAM DESCRIPTION: RAD - Chest Single View - 12/05/2020 3:13 pm CLINICAL HISTORY: SOB Chest pain. COMPARISON: Chest Single View dated 12/02/2020; Chest Single View dated 11/23/2020; Chest Single View d ated 11/13/2020; Chest Single View dated 11/12/2020 FINDINGS: Portable technique limits examination quality. Moderate bilateral pulmonary opacities are present, greater on the right, most compatible with mild w orsening in pneumonia. The heart is normal in size. No displaced fractures. IMPRESSION: Mild to moderate worsening in lung aeration since comparative study.
--- NOTE | 2020-12-05 16:35 | EDPHYS ---
Physician Documentation [facility] Name: Dahiana Smith Age: 80 yrs Sex: Female : 1940 Arrival Date: 12/05/2020 Time: 11:12 Bed 24 Private MD: Best Clemente ED Physician Yimi Martinez HPI: 12/05 13:50 This 80 yrs old Female presents to ER via Wheelchair with complaints of LowO2.cp 13:50 Low oxygen level while on home oxygen today and heart rate of 39 observed by home cp health nurse. Patient recently discharged after being hospitalized for COVID-19 pneumonia. No fever. Patient reports general weakness. Historical: - Allergies: 11:15 Iodine; sv - PMHx: 11:15 Cancer; Diabetes - IDDM; sv - Immunization history:: Flu vaccine status is unknown. - Social history:: Smoking status: Patient denies any tobacco usage or history of. ROS: 14:00 Constitutional: Positive for poor PO intake, Negative for body aches, chills, fever. cp 14:00 Eyes: Negative for injury, pain, redness, and discharge. cp 14:00 ENT: Negative for ear pain, sore throat, difficulty swallowing, difficulty handling secretions. 14:00 Cardiovascular: Positive for history of bradycardia, Negative for chest pain, edema, palpitations. 14:00 Respiratory: Positive for cough, with no reported sputum, Negative for shortness of breath, wheezing. 14:00 Abdomen/GI: Negative for abdominal pain, nausea, vomiting, and diarrhea. 14:00 : Negative for urinary symptoms. 14:00 Neuro: Positive for weakness, Negative for altered mental status, headache, syncope. 14:00 All other systems are negative. Exam: 12:35 ECG was reviewed by the Attending Physician. cp 14:05 Constitutional: The patient appears in no acute distress, alert, awake, cp non-diaphoretic, non-toxic, well developed, frail. 14:05 Head/Face: Normocephalic, atraumatic. cp 14:05 Eyes: Periorbital structures: appear normal, Pupils: equal, round, and reactive to light and accomodation, Extraocular movements: intact throughout, Conjunctiva: normal, no exudate, no injection, Sclera: no appreciated abnormality, Lids and lashes: appear normal, bilaterally. 14:05 ENT: External ear(s): are unremarkable, Nose: is normal, Mouth: Lips: dry, Oral mucosa: moist, Posterior pharynx: Airway: no evidence of obstruction, patent. 14:05 Neck: ROM/movement: is normal, is supple, without pain, no range of motions limitations, no meningismus. 14:05 Chest/axilla: Inspection: normal, Palpation: is normal, no crepitus, no tenderness. 14:05 Cardiovascular: Rate: normal, Rhythm: regular, Edema: is not appreciated, JVD: is not appreciated. 14:05 Respiratory: the patient does not display signs of respiratory distress, Respirations: labored breathing, is not present, intercostal retractions, are absent, shallow respirations, that is mild, Breath sounds: bronchial sounds, that are mild, are heard diffusely, wheezing: is not appreciated. 14:05 Abdomen/GI: Inspection: abdomen appears normal, Bowel sounds: active, all quadrants, Palpation: abdomen is soft and non-tender, in all quadrants. 14:05 Back: pain, is absent, ROM is normal. 14:05 Skin: no rash present. 14:05 Neuro: Orientation: to person, place, situation, Mentation: sleepy, Motor: moves all fours, strength is normal. Vital Signs: 11:16 BP 120 / 53; Pulse 97; Resp 18; Temp 97.1; Pulse Ox 97% ; Weight 58.97 kg; Height 5 ft. sv 2 in. (157.48 cm); Pain 0/10; 12:46 BP 136 / 83; Pulse 93; Resp 10; Pulse Ox 99% on 2 lpm NC; tw2 13:45 BP 126 / 77; Pulse 83; Resp 19; Pulse Ox 96% on 2 lpm NC; tw2 14:45 BP 143 / 78; Pulse 86; Resp 19; Pulse Ox 97% on 2 lpm NC; tw2 15:45 BP 141 / 80; Pulse 81; Resp 19; Pulse Ox 97% on 2 lpm NC; tw2 16:35 BP 135 / 82; Pulse 79; Resp 22; Pulse Ox 99% on 2 lpm NC; tw2 17:35 BP 144 / 85; Pulse 83; Resp 17; Pulse Ox 97% on 2 lpm NC; tw2 18:30 BP 151 / 76; Pulse 85; Resp 17; Pulse Ox 97% on 2 lpm NC; tw2 11:16 Body Mass Index 23.78 (58.97 kg, 157.48 cm) sv MDM: 13:27 Patient medically screened. cp 15:50 Physician consultation: Almas Cabral MD was called at 15:50, was contacted at 15:50, cp regarding admission, to the telemetry unit. patient's condition, would like consultation with Dr. Osuna prior to admission. 16:00 Data reviewed: vital signs, nurses notes, lab test result(s), EKG, radiologic studies, cp plain films. 16:00 Test interpretation: by ED physician or midlevel provider: ECG, plain radiologic cp studies. Counseling: I had a detailed discussion with the patient and/or guardian regarding: the historical points, exam findings, and any diagnostic results supporting the discharge/admit diagnosis, lab results, radiology results, the need for further work-up and treatment in the hospital. 16:05 Physician consultation: Ibrahima Osuna MD was called at 16:06, was contacted at 16:06, regarding consult, patient's condition, wants patient to be admitted to hospitalist and will consult. 12/05 13:45 Order name: Basic Metabolic Panel; Complete Time: 15:13 cp 12/05 15:14 Interpretation: Normal except: GLUC 252; BUN 33; GFR 39; CA 7.8. cp 12/05 13:45 Order name: CBC with Diff cp 12/05 15:14 Interpretation: Normal except: WBC 18.30; RBC 5.02; HCT 38.8; MCV 77.4; MCH 24.6; MCHC cp 31.8; PLT 128; RDW 15.4; MPV 10.5; PIO% 85.5; LYM% 6.6; NEUT A 15.7; MNA 1.4. 12/05 13:45 Order name: LFT's; Complete Time: 15:13 cp 02/04 13:45 Order name: Magnesium; Complete Time: 15:13 cp 0204 13:45 Order name: NT PRO-BNP; Complete Time: 15:13 cp /04 15:21 Interpretation: Abnormal: NT PRO-BNP 04300. cp 12/05 13:45 Order name: PT-INR; Complete Time: 15:13 cp 02/04 13:45 Order name: Troponin (emerg Dept Use Only); Complete Time: 15:13 cp 02/ 15:23 Interpretation: Abnormal: TROPED 0.10. cp 02/ 13:45 Order name: Procalcitonin; Complete Time: 15:13 cp 02/ 13:45 Order name: Lactate; Complete Time: 15:13 cp 02/ 13:45 Order name: Urine Microscopic Only; Complete Time: 15:13 cp 02/ 13:45 Order name: Blood Culture Adult (2) cp 02/ 14:28 Order name: Urine Dipstick--Ancillary (enter results) em1 12/05 14:29 Order name: Urine Dipstick-Ancillary; Complete Time: 15:13 EDMS / 14:40 Order name: Urine Culture EDMS / 17:18 Order name: COVID-19 : Document "Date of Symptom Onset" if Symptomatic. cp / 18:11 Order name: SARS-COV-2 RT PCR EDMS / 20:20 Order name: CBC Smear Scan EDMS / 21:15 Order name: Lactate EDMS / 21:17 Order name: Troponin I EDMS / 21:17 Order name: C-Reactive Protein EDMS / 21:17 Order name: Ferritin EDMS / 21:21 Order name: Glucose, Ancillary Testing EDMS / 06:20 Order name: CBC with Automated Diff EDMS / 08:00 Order name: Glucose, Ancillary Testing EDMS / 08:34 Order name: Glucose, Ancillary Testing EDMS 12/06 09:58 Order name: Comprehensive Metabolic Panel EDMS 12/06 09:58 Order name: Magnesium EDMS 02/ 10:03 Order name: Troponin I EDMS / 12:21 Order name: Phosphorus EDMS / 13:45 Order name: XRAY Chest (1 view); Complete Time: 15:25 cp 02/ 15:26 Interpretation: Report reviewed. cp 12/05 13:45 Order name: EKG; Complete Time: 13:46 cp 12/05 13:45 Order name: Cardiac monitoring; Complete Time: 18:22 cp 12/05 13:45 Order name: EKG - Nurse/Tech; Complete Time: 18:22 cp 12/05 13:45 Order name: IV Saline Lock; Complete Time: 18:22 cp 12/05 13:45 Order name: Labs collected and sent; Complete Time: 18:22 12/05 13:45 Order name: O2 Per Protocol; Complete Time: 18:22 12/05 13:45 Order name: O2 Sat Monitoring; Complete Time: 18:22 12/05 13:45 Order name: Urine Dipstick-Ancillary (obtain specimen); Complete Time: 14:28 12/05 16:59 Order name: CT Abd/Pelvis - Without Contrast 12/05 17:00 Order name: CONS Physician Consult EDPR 12/05 17:51 Order name: CT EDPR 12/06 12:40 Order name: Glucose, Ancillary Testing EDPR 12/06 12:45 Order name: Gram Stain--Aerobic Bottle EDPR 12/06 13:41 Order name: Glucose, Ancillary Testing EDPR 12/06 13:57 Order name: Gram Stain--Aerobic Bottle EDPR 12/06 16:38 Order name: Basic Metabolic Panel EDPR 12/06 16:42 Order name: Troponin I EDPR 12/06 16:50 Order name: Phosphorus EDPR 12/06 17:31 Order name: Glucose, Ancillary Testing EDMS EC:35 Rate is 92 beats/min. Rhythm is irregular. QRS interval is normal. QT interval is cp normal. T waves are Inverted in leads V2, V3. Interpreted by me. Reviewed by me. Administered Medications: No medications were administered Disposition: 12/05/20 16:34 Hospitalization ordered by Almas Cabral for Observation. Preliminary diagnosis are Weakness, Elevated Troponin. - Bed requested for Telemetry/MedSurg (observation). - Status is Observation. ca1 - Condition is Stable. - Problem is new. - Symptoms have improved. Addendum: 12/09/2020 06:14 Co-signature as Attending Physician, Yimi Martinez MD I agree with the assessment and k dr plan of care. Signatures: Dispatcher [employer] [facility] Sabrina Novoa RN RN sv Woody, Diana, RN RN dw Gay, Steven, RN RN sg Rittger, Kevin, MD MD kdr Page, Corey, PA PA cp Codie Wall Cheryl RN RN ca1 Corrections: (The following items were deleted from the chart) 02/04 15:14 15:13 Normal except: GLUC 252; BUN 33; GFR 39. cp cp 16:42 16:34 Hospitalization Ordered by Almas Cabral MD for Inpatient Admission. Preliminary cp diagnosis is Weakness; Elevated Troponin. Bed requested for Telemetry/MedSurg (Inpatient). Status is Inpatient Admission. Condition is Stable. Problem is new. Symptoms have improved. cp 19:15 16:42 12/05/2020 16:34 Hospitalization Ordered by Almas Cabral MD for Observation. sg Preliminary diagnosis is Weakness; Elevated Troponin. Bed requested for Telemetry/MedSurg (observation). Status is Observation. Condition is Stable. Problem is new. Symptoms have improved. cp 12/06 13:53 02 19:15 12/05/2020 16:34 Hospitalization Ordered by Almas Cabral MD for eb Observation. Preliminary diagnosis is Weakness; Elevated Troponin. Bed requested for [facility] ER HOLD. Status is Observation. Condition is Stable. Problem is new. Symptoms have improved. sg 12/06 13:53 13:53 12/05/2020 16:34 Hospitalization Ordered by Almas Cabral MD for Observation. dw Preliminary diagnosis is Weakness; Elevated Troponin. Bed requested for Telemetry/MedSurg (observation). Status is Observation. Condition is Stable. Problem is new. Symptoms have improved. eb 18:38 13:53 12/05/2020 16:34 Hospitalization Ordered by Almas Cabral MD for Observation. ca1 Preliminary diagnosis is Weakness; Elevated Troponin. Bed requested for Telemetry/MedSurg (observation). Status is Observation. Condition is Stable. Problem is new. Symptoms have improved. dw 12/07 16:08 12/06 13:50 This 80 yrs old Female presents to ER via Wheelchair with cp complaints of LowO2. cp 12/07 16:12/06 13:50 Low oxygen level while on home oxygen today and heart rate of 39 observed cp by home health nurse. Patient recently discharged after being hospitalized for COVID-19 pneumonia. No fever. Patient reports general weakness. cp
--- NOTE | 2020-12-05 16:35 | ER ---
Nurse's Notes [facility] Name: Dahiana Smith Age: 80 yrs Sex: Female : 1940 Arrival Date: 12/05/2020 Time: 11:12 Bed 24 Private MD: Best Clemente Diagnosis: Weakness;Elevated Troponin Presentation: 12/05 11:16 Chief complaint: Patient states: Home health found low O2 sats and HR off, so they told sv her to bring her in. Was admitted and released for pneumonia Wednesday. Fatigue and weakness since being home, eating though. Coronavirus screen: Client denies travel out of the [place] in the last 14 days. difficulty breathing, fatigue, Client presents with at least one sign or symptom that may indicate coronavirus-19. Standard/surgical mask placed on the client. Ebola Screen: Patient denies travel to an Ebola-affected area in the 21 days before illness onset. Initial Sepsis Screen: Does the patient meet any 2 criteria? HR > 90 bpm. No. Patient's initial sepsis screen is negative. Does the patient have a suspected source of infection? Yes: Productive cough/pneumonia. Risk Assessment: Do you want to hurt yourself or someone else? Patient reports no desire to harm self or others. Onset of symptoms was December 05, 2020. 11:16 Method Of Arrival: Wheelchair sv 11:16 Acuity: DULCE 3 sv Historical: - Allergies: 11:15 Iodine; sv - PMHx: 11:15 Cancer; Diabetes - IDDM; sv - Immunization history:: Flu vaccine status is unknown. - Social history:: Smoking status: Patient denies any tobacco usage or history of. Screenin:23 Abuse screen: Denies threats or abuse. Nutritional screening: No deficits noted. tw2 Tuberculosis screening: No symptoms or risk factors identified. Fall Risk Secondary diagnosis (15 points) impaired mobility. Assessment: 12:18 General: Appears in no apparent distress. uncomfortable, Behavior is calm, cooperative, tw2 appropriate for age. Pain: Denies pain. Neuro: Level of Consciousness is awake, alert, obeys commands, Oriented to person, place, time, situation. Cardiovascular: Capillary refill < 3 seconds Patient's skin is warm and dry. Respiratory: Reports shortness of breath at rest on exertion Airway is patent Respiratory effort is even, unlabored, Respiratory pattern is regular, symmetrical, pt uses oxygen at home. GI: No signs and/or symptoms were reported involving the gastrointestinal system. Abdomen is round non-distended. Derm: No signs and/or symptoms reported regarding the dermatologic system. Skin is intact, is fragile, is thin, with poor turgor Bruising that is dark purple, green, yellow, on right arm and left arm. Musculoskeletal: Range of motion: intact in all extremities. 12:45 Reassessment: Patient appears in no apparent distress at this time. No changes from tw2 previously documented assessment. Patient and/or family updated on plan of care and expected duration. Pain level reassessed. 12:56 Reassessment: Patient appears in no apparent distress at this time. No changes from tw2 previously documented assessment. Patient and/or family updated on plan of care and expected duration. Pain level reassessed. pt states "feeling better laying here" Patient states feeling better. 13:33 Reassessment: provider at bedside at this time. tw2 13:45 Reassessment: Patient appears in no apparent distress at this time. No changes from tw2 previously documented assessment. Patient and/or family updated on plan of care and expected duration. Pain level reassessed. 14:45 Reassessment: Patient appears in no apparent distress at this time. No changes from tw2 previously documented assessment. Patient and/or family updated on plan of care and expected duration. Pain level reassessed. 15:45 Reassessment: Patient appears in no apparent distress at this time. No changes from tw2 previously documented assessment. Patient and/or family updated on plan of care and expected duration. Pain level reassessed. 16:45 Reassessment: Patient appears in no apparent distress at this time. No changes from tw2 previously documented assessment. Patient and/or family updated on plan of care and expected duration. Pain level reassessed. 17:45 Reassessment: Patient appears in no apparent distress at this time. No changes from tw2 previously documented assessment. Patient and/or family updated on plan of care and expected duration. Pain level reassessed. 18:41 Reassessment: Patient appears in no apparent distress at this time. No changes from tw2 previously documented assessment. Patient and/or family updated on plan of care and expected duration. Pain level reassessed. Vital Signs: 11:16 BP 120 / 53; Pulse 97; Resp 18; Temp 97.1; Pulse Ox 97% ; Weight 58.97 kg; Height 5 ft. sv 2 in. (157.48 cm); Pain 0/10; 12:46 BP 136 / 83; Pulse 93; Resp 10; Pulse Ox 99% on 2 lpm NC; tw2 13:45 BP 126 / 77; Pulse 83; Resp 19; Pulse Ox 96% on 2 lpm NC; tw2 14:45 BP 143 / 78; Pulse 86; Resp 19; Pulse Ox 97% on 2 lpm NC; tw2 15:45 BP 141 / 80; Pulse 81; Resp 19; Pulse Ox 97% on 2 lpm NC; tw2 16:35 BP 135 / 82; Pulse 79; Resp 22; Pulse Ox 99% on 2 lpm NC; tw2 17:35 BP 144 / 85; Pulse 83; Resp 17; Pulse Ox 97% on 2 lpm NC; tw2 18:30 BP 151 / 76; Pulse 85; Resp 17; Pulse Ox 97% on 2 lpm NC; tw2 11:16 Body Mass Index 23.78 (58.97 kg, 157.48 cm) sv ED Course: 11:12 Patient arrived in ED. mr 11:12 Best Clemente MD is Private Physician. mr 11:15 Arm band placed on. sv 11:18 Triage completed. sv 12:18 Bed in low position. Call light in reach. die repairer stamping on. Pulse ox on. NIBP on. tw2 Door closed. Warm blanket given. 12:23 Teresa Vanessa RN is Primary Nurse. tw2 12:50 Initial lab(s) drawn, by wa. EKG done, by ED staff. Inserted saline lock: 20 gauge in kj1 right antecubital area, using aseptic technique. Blood collected. 13:21 Cosme Sanchez PA is PHCP. cp 13:21 Yimi Martinez MD is Attending Physician. cp 14:40 Urine Dipstick--Ancillary (enter results) Sent. sv 15:13 XRAY Chest (1 view) In Process Unspecified. EDMS 16:33 Almas Cabral MD is Hospitalizing Provider. cp 19:42 Primary Nurse role handed off by Tersea Vanessa, RN mw2 Administered Medications: No medications were administered Outcome: 16:34 Decision to Hospitalize by Provider. cp 02/05 18:38 Patient left the ED. ca1 Signatures: Dispatcher [employer] EDSabrina Armenta, RN RN kenny Ridley, Cher mr Cosme Sanchez PA PA cp Wise, Tara, RN RN tw2 Merlin, Roger 2 Cristina Elizabeth RN RN ca1 Casi Lees kj1
--- NOTE | 2020-12-05 17:12 | P.HP ---
Certification for Inpatient Patient admitted to: Observation With expected LOS: <2 Midnights Practitioner: I am a practitioner with admitting privileges, knowledge of patient current condition, hospital course, and medical plan of care. Services: Services provided to patient in accordance with Admission requirements found in Title 42 Section 412.3 of the Code of Federal Regulations Patient History Date of Service: 12/05/20 Reason for admission: Bradycardia, lethargy History of Present Illness: 80yo F, PMH: Metastatic lung cancer with chronic left pleural effusion s/p pleurx cath, HTN, DM 2, h/o UTIs, recently discharged a few days ago due to prolonged stay of COVID-19 pneumonia was sent into the ED under guidance of home health nurse due to noted bradycardia in 30s and SpO2: 88% on 4 L nasal cannula. Daughter states she believes so heart rate was down in the 30s for a few seconds to a min. She otherwise states her mother has been about the same since she was discharged a few days ago. She sleeps most of the day but wakes up and has been eating well. Her oxygen was otherwise been okay on 4 L. patient states it feels a little bit more tired today compared to yesterday. Also reporting some diffuse abdominal discomfort/pain, 7/10, unable to describe the character, nothing worsens or alleviates, began 2 days ago feels a slightly worse today. Unable to tell me when she last had a bowel movement. Patient was diagnosed with new onset AFib during her recent hospitalization was discharged with carvedilol 12.5 mg b.i.d. and Eliquis. Cardiology was consulted in the ED and recommended observation overnight on telemetry and half the dose of Coreg. Workup in ED notable for leukocytosis of 18.3, mild thrombocytopenia of 128, troponin 0.1, BNP: > 10,000, negative pro calcitonin, yeast noted in the UA, COVID positive. CXR with bilateral opacities slightly worse compared to recent hospitalization. Rodriguez catheter was placed in the ED. Allergies iodine Allergy (Verified 11/14/20 22:36) Hives/Rash morphine Allergy (Verified 12/01/20 22:54) Shortness of breath Red berries Allergy (Uncoded 11/12/20 17:03) Rash Home Medications: Escitalopram [Lexapro*] 20 mg PO DAILY 10/31/20 Insulin Degludec [Tresiba Flextouch U-100] 28 units SQ DAILY 10/31/20 Losartan Potassium 50 mg PO DAILY 11/05/20 Omeprazole 20 mg PO DAILY 11/05/20 Thyroid,Pork [[place] Thyroid] 15 mg PO DAILY 11/05/20 Ensure High Protein 237 ml PO TID 11/24/20 Hyoscyamine Sulfate [Levsin TAB*] 0.125 mg SL Q4HP PRN 11/24/20 Lactobacillus Acidophilus [Acidophilus Probiotic] 1 cap PO DAILY 11/24/20 Osimertinib Mesylate [Tagrisso] 80 mg PO 1330 11/24/20 Promethazine Tab [Phenergan*] 25 mg PO Q6HP PRN 11/24/20 traMADol HCL [Ultram*] 50 mg PO BIDP PRN 11/24/20 Apixaban [Eliquis] 5 mg PO BID #60 tablet 12/02/20 Ascorbate Calcium [Vitamin C] 500 mg PO TID #90 tablet 12/02/20 Benzonatate [Tessalon Perle*] 100 mg PO TID PRN #15 cap 12/02/20 Cholecalciferol (Vitamin D3) [Vitamin D 1000 Iu Tab*] 2,000 unit PO DAILY #60 tab 12/02/20 Melatonin 5 mg PO BEDTIME #30 tablet 12/02/20 Thiamine HCl [Vitamin B-1*] 100 mg PO BID #60 tablet 12/02/20 Zinc Sulfate [Zinc Sulfate*] 220 mg PO DAILY #30 cap 12/02/20 carvediloL [Coreg*] 12.5 mg PO BID 6AM 6PM #60 tab 12/02/20 predniSONE [Deltasone] 20 mg PO SEECOM #21 tab 12/02/20 - Past Medical/Surgical History Diabetic: Yes -: DM type2 -: Metastatic Lung Cancer -: Dyslipidemia -: Osteoarthritis -: Hypothyroidism -: Diabetes mellitus type 2 -: bilateral mastectomy -: tummy tuck -: breast reduction -: Appendectomy -: partial hysterectomy Psychosocial/ Personal History: Patient is retired, lives with her and has home health - Family History Brother -: Diabetes Sister -: Diabetes - Social History Smoking Status: Unknown if ever smoked Alcohol use: No CD- Drugs: No Caffeine use: Yes Place of Residence: Home Review of Systems 10-point ROS is otherwise unremarkable Physical Examination - Studies Laboratory Data (last 24 hrs) 12/05/20 14:05: PT 17.6 H, INR 1.52 12/05/20 14:05: WBC 18.30 H D, Hgb 12.3, Hct 38.8 D, Plt Count 128 L 12/05/20 14:05: Sodium 136, Potassium 4.3, BUN 33 H, Creatinine 1.30, Glucose 252 H, Magnesium 2.3, Total Bilirubin 0.4, AST 21, ALT 12, Alkaline Phosphatase 97 Assessment and Plan - Advance Directives Does patient have a Living Will: Yes Does patient have a Durable POA for Healthcare: Yes Physician Review Additional Text: Physical exam: Gen: some lethargy, answers questions and seems to fall asleep in between HEENT: normal conjunctivae CV: Irregularly irregular rhythm, HR: 90s Pulm: bibasilar crackles, slight tachypnea / shallow respirations on 2L NC - SpO2: 98%, pleurx cath in place Abd: soft, diffuse mild TTP, non-distended Ext: no edema, no lesions Neuro: moves all extremities, falling asleep between questions Problem list: Bradycardia Lethargy Abdominal pain Generalized weakness COVID-19 pneumonia h/o metastatic lung cancer with recurrent left pleural effusion now with Pleurx catheter h/o urosepsis secondary to staph with bacteremia DM2, insulin dependent. Atrial fibrillation on chronic anticoagulation therapy Hypertension Stage II sacral decubitus ulcer Hypothyroidism Depression -Discussed with cardiology, will bring patient in for obs telemetry overnight to evaluate for bradycardia/heart block -bradycardia possibly due to recently started carvedilol. decrease home Coreg dose is 6.25 b.i.d. -generalize weakness/lethargy and seems unchanged since recent discharge/hospitalization according to daughter -resume home medications, COVID medications - vitamins, prednisone, O2 as n eeded, eliquis -trend troponin, discussed with daughter, if elevated, right now unlikely to want to proceed with cardiac cath, but will go over that again -discussed with ED physician - to obtain CT abd/pelvis given abdominal pain. possibly just constipation -fluconazole for yeast in urine, was noted 2 weeks ago as well, f/u urine culture VTE: eliquis Code: DNR Dispo: anticipate dc home in 24hrs Time Spent Managing Pts Care (In Minutes): 70
--- NOTE | 2020-12-05 17:50 | RAD REPORT ---
EXAM DESCRIPTION: CT - Abdomen Pelvis Wo Contrast - 12/05/2020 5:26 pm CLINICAL HISTORY: Abdominal pain. ABD PAIN COMPARISON: Chest Single View dated 12/05/2020; Chest Single View dated 12/02/2020; Chest Single View da kal 11/23/2020; Chest Single View dated 11/13/2020; Chest Single View dated 11/12/2020; Chest Single Vie w dated 11/09/2020 TECHNIQUE: CT imaging of the abdomen and pelvis was performed without contrast. Solid organ, bowel a nd vascular assessment is limited due to lack of IV and oral contrast. All CT scans are performed using dose optimization technique as appropriate and may include automated exposure control or mA/KV adjustment according to patient size. FINDINGS: Significant lower lobe pulmonary opacities are present, greater on the right, likely relat ed to infection. Small bore left-sided chest tube is in place with its tip in the left posterior gutt er. The liver, spleen, pancreas, adrenal glands and kidneys are within normal limits for a limited non-co ntrast examination.Exophytic 10 mm cyst is seen from the left kidney. No bowel obstruction, free air, free fluid or abscess. Moderate stool is present throughout the colon . The appendix is not identified as a discrete structure, however, no secondary findings of appendici tis are identified. A mild compression fracture is present affecting the L3 vertebral body. Loss of vertebral body height is estimated at 10-15%. IMPRESSION: Mild anterior compression fracture affects the L3 vertebral body probably subacute in ti meframe. No canal compromise. Prominent bilateral lower lobe lung opacities likely related to pulmonary infection. A small bore mike st tube is present on the left. A limited non-contrast examination was performed as detailed.
[2020-12-05] MEDS ORDERED: HYOSCYAMINE SULF 0.125 MG TAB SL PRN (20:13)
[2020-12-05] MEDS ORDERED: predniSONE 20 MG TAB PO SCH (20:13)
[2020-12-05] MEDS: carvediloL 12.5 MG TAB PO SCH (20:13)
[2020-12-05 20:20] LABS: Blood Morphology Comment NOTED (NOT SEEN); Platelet Estimate DECR; White Blood Cell Scan OK (OK)
[2020-12-05] MEDS: INSULIN -REGULAR HUMAN 50 UNIT/0.5 ML ML SQ SCH (21:00)
[2020-12-05 21:16] LABS: C-Reactive Protein 8.03 mg/L (<3.00); Ferritin 595.9 ng/mL (8-388); Troponin I 0.09 ng/mL (0.0-0.045)
[2020-12-05] MEDS ORDERED: INSULIN -REGULAR HUMAN 50 UNIT/0.5 ML ML ONE (21:40)
[2020-12-05] MEDS ORDERED: carvediloL 6.25 MG TAB ONE (21:45)
[2020-12-05] MEDS ORDERED: ASCORBIC ACID 500 MG TABLET ONE (21:45)
[2020-12-05] MEDS ORDERED: APIXABAN 5 MG TABLET ONE (21:45)
[2020-12-05] MEDS ORDERED: FLUCONAZOLE 100 MG TAB ONE (21:45)
[2020-12-05] MEDS ORDERED: predniSONE 20 MG TAB ONE (21:46)
[2020-12-05] MEDS: ENSURE HIGH PROTEIN 237 ML CAN PO SCH (21:50)
[2020-12-05] MEDS: APIXABAN 5 MG TABLET PO SCH (21:55)
[2020-12-05] MEDS: ASCORBIC ACID 500 MG TABLET PO SCH (21:55)
[2020-12-05] MEDS: predniSONE 20 MG TAB PO SCH (21:55)
[2020-12-05] MEDS: FLUCONAZOLE 100 MG TAB PO SCH (21:56)
[2020-12-05] MEDS ORDERED: ACETAMINOPHEN 500 MG TAB PO ONE (22:12)
[2020-12-05] MEDS: THIAMINE HCL 100 MG TABLET PO SCH (22:13)
[2020-12-05] MEDS ORDERED: ACETAMINOPHEN 500 MG TAB ONE (22:26)
[2020-12-06 00:49] VITALS: BMI 23.6
[2020-12-06] MEDS ORDERED: THYROID 30 MG TAB PO SCH (06:00)
[2020-12-06] MEDS: carvediloL 12.5 MG TAB PO SCH (06:00)
[2020-12-06 06:17] LABS: Absolute Lymphocytes (CBC) 2.2 K/uL (0.7-4.9); Basophils % 0.1 % (0-1.3); Hematocrit 35.3 % (36.0-45.0); Lymphocytes % 14.6 % (15.3-44.8); RBC Red Blood Cell Count 4.63 M/uL (3.86-4.86)
[2020-12-06] MEDS ORDERED: carvediloL 6.25 MG TAB ONE ×2 (07:18→17:46)
[2020-12-06] MEDS: carvediloL 6.25 MG TAB PO SCH ×3 (07:28→17:47)
[2020-12-06] MEDS: D50W 25 GM/50 ML SYRINGE IV PRN ×2 (07:47→12:40)
[2020-12-06] MEDS ORDERED: D50W 25 GM/50 ML SYRINGE IV ONE ×2 (08:02→12:46)
[2020-12-06] MEDS: ENSURE HIGH PROTEIN 237 ML CAN PO SCH ×2 (09:00→14:00)
[2020-12-06] MEDS ORDERED: ZINC SULFATE 220 MG CAP PO SCH (09:00)
[2020-12-06] MEDS ORDERED: VITAMIN D 1000 UNIT TAB PO SCH (09:00)
[2020-12-06] MEDS ORDERED: LACTOBACILLUS/ACIDOPHILUS TAB PO SCH (09:00)
[2020-12-06] MEDS: INSULIN -REGULAR HUMAN 50 UNIT/0.5 ML ML SQ SCH ×3 (09:00→17:46)
[2020-12-06] MEDS ORDERED: ESCITALOPRAM 20 MG TAB PO SCH (09:00)
[2020-12-06] MEDS: ASCORBIC ACID 500 MG TABLET PO SCH ×2 (09:00→14:00)
[2020-12-06] MEDS ORDERED: FLUCONAZOLE 100 MG TAB ONE (09:40)
[2020-12-06] MEDS ORDERED: predniSONE 20 MG TAB ONE (09:41)
[2020-12-06] MEDS ORDERED: THIAMINE HCL 100 MG TABLET ONE (09:45)
[2020-12-06] MEDS ORDERED: VITAMIN D 1000 UNIT TAB ONE ×2 (09:45→12:21)
[2020-12-06] MEDS ORDERED: APIXABAN 5 MG TABLET ONE (09:45)
[2020-12-06] MEDS ORDERED: ZINC SULFATE 220 MG CAP ONE (09:46)
[2020-12-06] MEDS ORDERED: ASCORBIC ACID 500 MG TABLET ONE (09:47)
[2020-12-06 09:57] LABS: Albumin 2.1 g/dL (3.4-5.0); Bilirubin Total 0.4 mg/dL (0.2-1.0); Magnesium 2.1 mg/dL (1.8-2.4); Potassium 3.9 mmol/L (3.5-5.1); Protein, Total 5.6 g/dL (6.4-8.2)
[2020-12-06] MEDS ORDERED: NA CHLORIDE 0.9% 250 ML ONE (11:57)
[2020-12-06] MEDS ORDERED: KCL 20 MEQ/100 mL IVPB 20 MEQ/100 ML BAG IV ONE (11:57)
[2020-12-06] MEDS ORDERED: KCL 20 MEQ/100 mL IVPB 20 MEQ/100 ML BAG IV SCH (13:00)
[2020-12-06] MEDS ORDERED: POTASSIUM PHOS IN 0.9 % NACL 15 MMOL/250 ML BAG IV ONE (13:26)
[2020-12-06] MEDS ORDERED: Osimertinib Mesylate [Tagrisso] 80 MG PO SCH (13:30)
[2020-12-06] MEDS: predniSONE 20 MG TAB PO SCH (14:00)
[2020-12-06] MEDS: FLUCONAZOLE 100 MG TAB PO SCH (14:00)
[2020-12-06] MEDS: APIXABAN 5 MG TABLET PO SCH (14:00)
[2020-12-06] MEDS: THIAMINE HCL 100 MG TABLET PO SCH (14:00)
[2020-12-06] MEDS ORDERED: D50W 25 GM/50 ML VIAL IV PRN (15:00)
[2020-12-06 16:21] VITALS: O2SAT 91
[2020-12-06 16:23] VITALS: BP 115/55; TEMP 97.7
[2020-12-06 16:37] LABS: Potassium 4.8 mmol/L (3.5-5.1)
--- NOTE | 2020-12-06 16:45 | P.DS ---
Admission Date: 12/05/20 Discharge Date: 12/06/20 Disposition: ROUTINE DISCHARGE Discharge Condition: FAIR Reason for Admission: Bradycardia, lethargy Consultations: Cardiology - Dr. Osuna Procedures: CT Abd/Pelvis (12/05): Mild anterior compression fracture affects the L3 vertebral body probably subacute in timeframe. No canal compromise. Prominent bilateral lower lobe lung opacities likely related to pulmonary infection. A small bore chest tube is present on the left. Problem list: Bradycardia Lethargy Generalized weakness COVID-19 pneumonia h/o metastatic lung cancer with recurrent left pleural effusion now with Pleurx catheter h/o urosepsis secondary to staph with bacteremia DM2, insulin dependent. Atrial fibrillation on chronic anticoagulation therapy Hypertension Stage II sacral decubitus ulcer Hypothyroidism Depression Brief History of Present Illness: 80yo F, PMH: Metastatic lung cancer with chronic left pleural effusion s/p pleurx cath, HTN, DM 2, h/o UTIs, recently discharged a few days ago due to prolonged stay of COVID-19 pneumonia was sent into the ED under guidance of home health nurse due to noted bradycardia in 30s and SpO2: 88% on 4 L nasal cannula. Daughter states she believes so heart rate was down in the 30s for a few seconds to a min. She otherwise states her mother has been about the same since she was discharged a few days ago. She sleeps most of the day but wakes up and has been eating well. Her oxygen was otherwise been okay on 4 L. patient states it feels a little bit more tired today compared to yesterday. Also reporting some diffuse abdominal discomfort/pain, 7/10, unable to describe the character, nothing worsens or alleviates, began 2 days ago feels a slightly worse today. Unable to tell me when she last had a bowel movement. Patient was diagnosed with new onset AFib during her recent hospitalization was discharged with carvedilol 12.5 mg b.i.d. and Eliquis. Cardiology was consulted in the ED and recommended observation overnight on telemetry and half the dose of Coreg. Workup in ED notable for leukocytosis of 18.3, mild thrombocytopenia of 128, troponin 0.1, BNP: > 10,000, negative pro calcitonin, yeast noted in the UA, COVID positive. CXR with bilateral opacities slightly worse compared to recent hospitalization. Rodriguez catheter was placed in the ED. Hospital Course: Patient was monitored overnight, no acute events were noted on telemetry. HR remained 80-90s. Her carvedilol was decreased to 6.25 mg b.i.d. after discussion with cardiology. Patient felt much better the following morning, she reported breathing comfortably on 4 L nasal cannula, felt like she had more energy, and wanted to be discharged home. Nursing staff were initially concerned because patient seemed to have some coughing while drinking water this morning. Patient was briefly made NPO and evaluated by speech therapy, who stated the patient was able to swallow without any issue. However, patient felt more comfortable with a mechanical soft consistency. Physical therapy was consulted, noted the patient was really weak, could only sit up briefly in bed. This was discussed with patients family, who stated this is how she has been in were completely comfortable with taking [place] home [place] the state and would be able to provide 24/7 assistance/care. Several discussions were had with the patients daughters and regarding hospice. Her daughter Meera, stated that she will continue to have these conversations with her family and will discuss with her [facility] home health regarding transition to home hospice if they decide on pursuing that route. New subacute compression fractures were discussion with patient's daughter as well. Vital Signs/Physical Exam: Physical exam: Gen: more awake/alert today, oriented x3 HEENT: normal conjunctivae CV: Irregularly irregular rhythm, HR: 90s Pulm: bibasilar crackles, nonlabored respirations on 4 L NC Abd: soft, NTND Ext: no edema, no lesions Neuro: moves all extremities, generalized weakness Temp Pulse Resp BP Pulse Ox 97.7 F 99 H 18 115/55 L 91 12/06/20 16:00 12/06/20 16:00 12/06/20 16:00 12/06/20 16:00 12/06/20 16:00 Laboratory Data at Discharge: WBC 15.10 K/uL (4.3-10.9) H D 12/06/20 05:38 Hgb 11.6 g/dL (12.0-15.0) L 12/06/20 05:38 Hct 35.3 % (36.0-45.0) L 12/06/20 05:38 Plt Count 110 K/uL (152-406) L 12/06/20 05:38 PT 17.6 SECONDS (9.5-12.5) H 12/05/20 14:05 INR 1.52 12/05/20 14:05 Sodium 138 mmol/L (136-145) 12/06/20 16:05 Potassium 4.8 mmol/L (3.5-5.1) 12/06/20 16:05 BUN 26 mg/dL (7-18) H 12/06/20 16:05 Creatinine 1.11 mg/dL (0.55-1.3) 12/06/20 16:05 Glucose 182 mg/dL (74-106) H 12/06/20 16:05 Phosphorus 2.1 mg/dL (2.5-4.9) L 12/06/20 09:36 Magnesium 2.1 mg/dL (1.8-2.4) 12/06/20 09:36 Total Bilirubin 0.4 mg/dL (0.2-1.0) 12/06/20 09:36 AST 18 U/L (15-37) 12/06/20 09:36 ALT 10 U/L (12-78) L 12/06/20 09:36 Alkaline Phosphatase 81 U/L (45-117) 12/06/20 09:36 Troponin I 0.09 ng/mL (0.0-0.045) H 12/06/20 16:04 Home Medications: Escitalopram [Lexapro*] 20 mg PO DAILY 10/31/20 Insulin Degludec [Tresiba Flextouch U-100] 28 units SQ DAILY 10/31/20 Losartan Potassium 50 mg PO DAILY 11/05/20 Omeprazole 20 mg PO DAILY 11/05/20 Thyroid,Pork [[place] Thyroid] 15 mg PO DAILY 11/05/20 Ensure High Protein 237 ml PO TID 11/24/20 Hyoscyamine Sulfate [Levsin TAB*] 0.125 mg SL Q4HP PRN 11/24/20 Lactobacillus Acidophilus [Acidophilus Probiotic] 1 cap PO DAILY 11/24/20 Osimertinib Mesylate [Tagrisso] 80 mg PO 1330 11/24/20 Promethazine Tab [Phenergan*] 25 mg PO Q6HP PRN 11/24/20 traMADol HCL [Ultram*] 50 mg PO BIDP PRN 11/24/20 Apixaban [Eliquis] 5 mg PO BID #60 tablet 12/02/20 Ascorbate Calcium [Vitamin C] 500 mg PO TID #90 tablet 12/02/20 Benzonatate [Tessalon Perle*] 100 mg PO TID PRN #15 cap 12/02/20 Cholecalciferol (Vitamin D3) [Vitamin D 1000 Iu Tab*] 2,000 unit PO DAILY #60 tab 12/02/20 Melatonin 5 mg PO BEDTIME #30 tablet 12/02/20 Thiamine HCl [Vitamin B-1*] 100 mg PO BID #60 tablet 12/02/20 Zinc Sulfate [Zinc Sulfate*] 220 mg PO DAILY #30 cap 12/02/20 predniSONE [Prednisone*] 20 mg PO SEECOM #21 tab 12/02/20 carvediloL [Coreg*] 6.25 mg PO BID 30 Days #60 tab 12/06/20 New Medications: carvediloL [Coreg*] 6.25 mg PO BID 30 Days #60 tab Physician Discharge Instructions: You were monitored on a heart monitor and did not have any low heart rate or alarms. Your carvedilol was cut in half - take 6.25mg twice a day, instead of 12.5mg. Follow up with Cardiology in 1 week. Continue your other medication. Diet: ADA (mechanical soft diet) Activity: Fall precautions Followup: Best Clemente MD [Primary Care Provider] - Time spent managing pt's care (in minutes): 40
[2020-12-06] MEDS ORDERED: INSULIN -REGULAR HUMAN 50 UNIT/0.5 ML ML ONE (17:47)
[2020-12-13] MEDS ORDERED: predniSONE 20 MG TAB PO SCH (09:00)
== END 2020-12-06 18:38 | disposition home or self-care (01) ==
LOC: ER 11:09 → ERHOLD 16:58 → 4TH 12-06 15:18
PROVIDERS: ADMIT Hospitalist; ATTEND Hospitalist
DX: U07.1 COVID-19 (principal); J12.82 Pneumonia due to coronavirus disease 2019; R00.1 Bradycardia, unspecified; L89.152 Pressure ulcer of sacral region, stage 2; I48.91 Unspecified atrial fibrillation; Z79.01 Long term (current) use of anticoagulants; C34.90 Malignant neoplasm of unspecified part of unspecified bronchus or lung; C79.9 Secondary malignant neoplasm of unspecified site; J90 Pleural effusion, not elsewhere classified; E11.9 Type 2 diabetes mellitus without complications; Z79.4 Long term (current) use of insulin; I10 Essential (primary) hypertension; E03.9 Hypothyroidism, unspecified; F32.9 Major depressive disorder, single episode, unspecified; Z99.81 Dependence on supplemental oxygen; E78.5 Hyperlipidemia, unspecified; M19.90 Unspecified osteoarthritis, unspecified site
CPT/HCPCS: 93005; 87040 ×2; 87088; 85025 ×2; 87086; 80048 ×2; 36415; 83735 ×2; 87205 ×4; 84100 ×2; 85610; 82947 ×6; 80076; 83605 ×2; 87077 ×2; 87186 ×2; 84484 ×4; 82728; 80053; 84145; 83880; 86140; 74176; 71045; 92610; 97112; 97161; 94760; 99284; U0003; J3480; J7050; G0378 ×3; 81003; 81015; J7512

== ENCOUNTER 2020-12-09 12:51 | Emergency (ER) | payer OTHER, SELFPAY ==
[2020-12-09 13:24] LABS: Absolute Lymphocytes (CBC) 1.4 K/uL (0.7-4.9); Basophils % 0.4 % (0-1.3); Lymphocytes % 8.8 % (15.3-44.8); MPV 9.4 fL (7.6-11.3); RBC Red Blood Cell Count 5.05 M/uL (3.86-4.86)
[2020-12-09] MEDS ORDERED: NA CHLORIDE 0.9% 500 ML ONE ×2 (13:35→14:57)
[2020-12-09 13:46] LABS: Potassium 4.3 mmol/L (3.5-5.1)
--- NOTE | 2020-12-09 14:18 | RAD REPORT ---
EXAM DESCRIPTION: RAD - Chest Single View - 12/09/2020 2:04 pm CLINICAL HISTORY: DYSPNEA COMPARISON: Portable December 05 TECHNIQUE: AP portable chest image was obtained 12/09/2020 2:04 pm . FINDINGS: Extensive bilateral airspace opacification is present slightly worse than the December 05 e xamination which was already severe disease. Cardiac silhouette has enlarged. Central vasculature is increased in prominence. No measurable pleural effusion and no pneumothorax. Left base chest tube is still in place. No acute aortic findings suspected. IMPRESSION: Worsening of bilateral lung parenchymal opacification since December 05 imaging. This could be progressive pneumonia, worsening pulmonary edema or a combination.
[2020-12-09] MEDS ORDERED: PIPER/TAZO/NS 3.375gm 3.375 GM/100 ML BAG ONE (14:58)
--- NOTE | 2020-12-09 15:20 | P.CNS ---
Date of Consult: 12/09/20 Reason for Consult: Continuity, shortness of breath Requesting Physician: Satnam Cabral Chief Complaint: SOB History of Present Illness: 80yo F, metastatic lung cancer, CHF, recent COVID-19 pneumonia, recently discharged from hospital a few days ago presents to ED due to worsening SOB, mild confusion. ED workup notable for Elevated leukocytosis, BNP, CXR with worsening bilateral opacities. I have been having multiple discussions with the patient and patient's family since the patient's recent hospitalization and discharge. Patient's is currently admitted upstairs in our COVID unit. Patient was initially not ready for home hospice at last discharge and wanted to continue with home health. After discharge, while discussing the patient's 's medical status, of the family stated they discussed more at home and were looking into pursuing hospice. They were advised to call their home health agencies and discuss transition to home hospice. Here in the ED, patient states she wishes to go home on home hospice and does not want to be admitted., I called and spoke with the daughter, Meera, who agrees with that. I also spoke with her who agrees. Allergies iodine Allergy (Verified 11/14/20 22:36) Hives/Rash morphine Allergy (Verified 12/01/20 22:54) Shortness of breath Red berries Allergy (Uncoded 11/12/20 17:03) Rash Home Medications: Escitalopram [Lexapro*] 20 mg PO DAILY 10/31/20 Insulin Degludec [Tresiba Flextouch U-100] 28 units SQ DAILY 10/31/20 Losartan Potassium 50 mg PO DAILY 11/05/20 Omeprazole 20 mg PO DAILY 11/05/20 Thyroid,Pork [[place] Thyroid] 15 mg PO DAILY 11/05/20 Ensure High Protein 237 ml PO TID 11/24/20 Hyoscyamine Sulfate [Levsin TAB*] 0.125 mg SL Q4HP PRN 11/24/20 Lactobacillus Acidophilus [Acidophilus Probiotic] 1 cap PO DAILY 11/24/20 Osimertinib Mesylate [Tagrisso] 80 mg PO 1330 11/24/20 Promethazine Tab [Phenergan*] 25 mg PO Q6HP PRN 11/24/20 traMADol HCL [Ultram*] 50 mg PO BIDP PRN 11/24/20 Apixaban [Eliquis] 5 mg PO BID #60 tablet 12/02/20 Ascorbate Calcium [Vitamin C] 500 mg PO TID #90 tablet 12/02/20 Benzonatate [Tessalon Perle*] 100 mg PO TID PRN #15 cap 12/02/20 Cholecalciferol (Vitamin D3) [Vitamin D 1000 Iu Tab*] 2,000 unit PO DAILY #60 tab 12/02/20 Melatonin 5 mg PO BEDTIME #30 tablet 12/02/20 Thiamine HCl [Vitamin B-1*] 100 mg PO BID #60 tablet 12/02/20 Zinc Sulfate [Zinc Sulfate*] 220 mg PO DAILY #30 cap 12/02/20 predniSONE [Prednisone*] 20 mg PO SEECOM #21 tab 12/02/20 carvediloL [Coreg*] 6.25 mg PO BID 30 Days #60 tab 12/06/20 - Past Medical/Surgical History Diabetic: Yes -: DM type2 -: Metastatic Lung Cancer -: Dyslipidemia -: Osteoarthritis -: Hypothyroidism -: Diabetes mellitus type 2 -: bilateral mastectomy -: tummy tuck -: breast reduction -: Appendectomy -: partial hysterectomy Psychosocial/ Personal History: Patient is retired, lives with her and has home health - Family History Brother Medical History: Diabetes Sister Medical History: Diabetes - Social History Smoking Status: Unknown if ever smoked Alcohol use: No CD- Drugs: No Caffeine use: Yes Physical Examination General: Alert, Oriented x2, Confused, Other (Cachectic) HEENT: Sclerae nonicteric Respiratory: Diminished, Crackles/rales (Bilaterally), Other (Slight tachypnea on 4 L nasal cannula) Cardiovascular: Regular rate/rhythm Gastrointestinal: Soft and benign, No tenderness Musculoskeletal: No erythema Integumentary: No rashes Neurological: Normal speech, Normal affect Laboratory Data (last 24 hrs) 12/09/20 13:12: Sodium 137, Potassium 4.3, BUN 35 H, Creatinine 1.24, Glucose 80 12/09/20 13:12: WBC 15.90 H, Hgb 12.4, Hct 39.0, Plt Count 121 L Physician Review Additional Text: Problem list: SOB, BUNN, possible CHF exacerbation COVID-19 pneumonia Lumbar compression fracture h/o metastatic lung cancer with recurrent left pleural effusion now with Pleurx catheter h/o urosepsis secondary to staph with bacteremia DM2, insulin dependent. Atrial fibrillation on chronic anticoagulation therapy Hypertension Stage II sacral decubitus ulcer Hypothyroidism Depression Discussed with patient, patient's daughter, Meera, and , Rush - they are all in agreement of Hospice. They all stated patient (patient included) prefers home hospice if possible. Patient appears home hospice appropriate. social services technician consulted for home hospice Plan for patient to be discharged home and hospice to receive patient at home. Family and patient comfortable with plan. Out of hospital DNR signed by daughter (POA) Time Spent Managing Pts care (In Minutes): 60
--- NOTE | 2020-12-09 16:13 | ER ---
Nurse's Notes [facility] [place] Name: Dahiana Smith Age: 80 yrs Sex: Female : 1940 Arrival Date: 12/09/2020 Time: 12:53 Bed 6 Private MD: Diagnosis: Dyspnea, unspecified;Hypoxemia;Dehydration;Pneumonia, unspecified organism Presentation: 12/09 12:54 Chief complaint: EMS states: Home health nurse called for SpO2 74% on 4LNC w/ 30+ feet hb of tubing, improved to 94% on NEB. Hx of breast CA. BP 136/78, HR 130s, BGL 136. 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 Coronavirus screen: Client presents with at least one sign or symptom that may indicate coronavirus-19. Standard/surgical mask placed on the client. Provider contacted for isolation considerations. Ebola Screen: No symptoms or risks identified at this time. Initial Sepsis Screen: Does the patient meet any 2 criteria? HR > 90 bpm. No. Patient's initial sepsis screen is negative. Does the patient have a suspected source of infection?. Risk Assessment: Do you want to hurt yourself or someone else? Patient reports no desire to harm self or others. Onset of symptoms was December 09, 2020. 12:54 Method Of Arrival: EMS: [facility] hb 12:54 Acuity: DULCE 2 hb 12:57 Ebola Screen: Patient denies travel to an Ebola-affected area in the 21 days before tw2 illness onset. Onset of symptoms was December 09, 2020. Triage Assessment: 12:55 General: Appears distressed, Behavior is cooperative. Pain: Denies pain. EENT: No signs hb and/or symptoms were reported regarding the EENT system. Neuro: Level of Consciousness is obeys commands, lethargic, Oriented to person, place, situation. Cardiovascular: Capillary refill < 3 seconds Patient's skin is warm and dry. Respiratory: Reports shortness of breath at rest on exertion Respiratory effort is labored, Respiratory pattern is tachypnea. GI: No signs and/or symptoms were reported involving the gastrointestinal system. : No signs and/or symptoms were reported regarding the genitourinary system. Derm: Skin is dry, Skin is pale, Skin temperature is warm. Musculoskeletal: No signs and/or symptoms reported regarding the musculoskeletal system. Historical: - Allergies: 12:58 Iodine; tw2 12:58 Morphine; tw2 - Home Meds: 12:58 Pettus 5-325 mg Oral tab [Active]; tw2 - PMHx: 12:58 Diabetes - IDDM; Cancer; tw2 - Immunization history:: Adult Immunizations. - Social history:: Smoking status: . - Family history:: not pertinent. - Hospitalizations: : The patient was recently seen at [facility]. Screenin:56 Abuse screen: Denies threats or abuse. Nutritional screening: No deficits noted. tw2 Tuberculosis screening: No symptoms or risk factors identified. Fall Risk Secondary diagnosis (15 points). Assessment: 13:00 General: see triage assessment . hb 14:00 Reassessment: No changes from previously documented assessment. Patient and/or family hb updated on plan of care and expected duration. Pain level reassessed. 15:03 Reassessment: No changes from previously documented assessment. Patient and/or family hb updated on plan of care and expected duration. Pain level reassessed. 16:12 Reassessment: No changes from previously documented assessment. Patient and/or family tw2 updated on plan of care and expected duration. Pain level reassessed. 16:16 Reassessment: per case mgmt Krystyna, hospice set up and pt is ok to dicharge home via ambulance. [facility] [phone]. 17:36 Reassessment: No changes from previously documented assessment. Patient and/or family hb updated on plan of care and expected duration. Pain level reassessed. Awaiting transportation home at this time. 18:21 Reassessment: No changes from previously documented assessment. Patient and/or family hb updated on plan of care and expected duration. Pain level reassessed. 20:00 Reassessment: pt and pt daughter updated on COVID results per pt request upon dispo. pt sg daughter and pt stated understanding. Vital Signs: 12:54 BP 132 / 70; Pulse 115; Resp 22; Temp 97(TE); Pain 0/10; hb 14:09 BP 146 / 72; Pulse 121; Resp 28; Pulse Ox 91% on 5 lpm NC; hb 15:00 BP 133 / 84; Pulse 114; Resp 30; Pulse Ox 89% 5 lpm ; hb 16:12 BP 126 / 77; Pulse 113; Resp 22; Pulse Ox 85% on 5 lpm NC; tw2 17:30 BP 142 / 84; Pulse 121; Resp 27; Pulse Ox 93% on 5 lpm NC; hb 18:21 BP 148 / 95; Pulse 117; Resp 27; Pulse Ox 90% on 5 lpm NC; hb ED Course: 12:53 Patient arrived in ED. hb 12:53 Satnam Cbaral MD is Attending Physician. rn 12:54 Arm band placed on. hb 12:55 Bed in low position. Call light in reach. Side rails up X2. sail cutter on. Pulse tw2 ox on. NIBP on. Warm blanket given. 12:59 Triage completed. hb 13:12 Initial lab(s) drawn, by me, sent to lab. Inserted saline lock: 20 gauge in right dh3 antecubital area, using aseptic technique. Blood collected. 13:25 Amber Jack, RN is Primary Nurse. hb 14:04 XRAY Chest (1 view) In Process Unspecified. EDMS 14:04 X-ray completed. Portable x-ray completed in exam room. Patient tolerated procedure ml well. 14:10 Basic Metabolic Panel Sent. ss 14:10 CBC with Diff Sent. ss 19:02 No provider procedures requiring assistance completed. IV discontinued, intact, hb bleeding controlled, No redness/swelling at site. Administered Medications: 13:25 Drug: NS 0.9% 500 ml Route: IV; Rate: bolus; Site: right antecubital; hb 14:00 Follow up: Response: No adverse reaction; IV Status: Completed infusion; IV Intake: hb 500ml 15:02 Drug: NS 0.9% 500 ml Route: IV; Rate: bolus; Site: right antecubital; hb 15:45 Follow up: Response: No adverse reaction; IV Status: Completed infusion; IV Intake: hb 500ml 15:03 Drug: Zosyn 3.375 grams Route: IVPB; Infused Over: 60 mins; Site: right antecubital; hb 16:10 Follow up: Response: No adverse reaction; IV Status: Completed infusion; IV Intake: hb 100ml Intake: 14:00 IV: 500ml; Total: 500ml. hb 15:45 IV: 500ml; Total: 1000ml. hb 16:10 IV: 100ml; Total: 1100ml. hb Outcome: 16:12 Discharge ordered by . rn 19:02 Discharged to home via ambulance. 19:02 Condition: stable 19:02 Discharge instructions given to patient, Instructed on discharge instructions, follow up and referral plans. medication usage, Demonstrated understanding of instructions, follow-up care, medications. 19:03 Patient left the ED. Signatures: Dispatcher [employer] EDMS Tong Loo RN RN Mikayla Salazar Roman, MD MD rn Smirch, Shelby, RN RN Amber Jack RN RN hb Wise, Tara, RN RN [facility] Jen Morris [facility]
--- NOTE | 2020-12-09 16:13 | EDPHYS ---
Physician Documentation [facility] Name: Dahiana Smith Age: 80 yrs Sex: Female : 1940 Arrival Date: 12/09/2020 Time: 12:53 Bed 6 Private MD: ED Physician Satnam Cabral HPI: 12/09 12:57 This 80 yrs old Female presents to ER via Unassigned with complaints of rn Shortness Of Breath. 12:57 The patient has shortness of breath at rest, with light activity. Onset: The rn symptoms/episode began/occurred at an unknown time. Duration: The symptoms are continuous. The patient's shortness of breath is aggravated by exertion, light activity, supine position. Severity of symptoms: At their worst the symptoms were moderate in the emergency department the symptoms have improved. The patient has experienced similar episodes in the past. Home health nurse called 911 for low oxygen, found to have long oxygen tubing at 4L O2, O2 was in 80s, home health nurse then drained approx 350cc fluid from left lung as before, and improved oxygenation along with shorter tubing from EMS. Patient reports generalized weakness and fatigue but reports has been eating/drinking ok. No new pain. No fever. Recently admitted and discharged from hospital. . Historical: - Allergies: 12:58 Iodine; tw2 12:58 Morphine; tw2 - Home Meds: 12:58 Cro[place]on 5-325 mg Oral tab [Active]; tw2 - PMHx: 12:58 Diabetes - IDDM; Cancer; tw2 - Immunization history:: Adult Immunizations. - Social history:: Smoking status: . - Family history:: not pertinent. - Hospitalizations: : The patient was recently seen at [facility]. ROS: 12:57 Constitutional: Negative for fever, chills Eyes: Negative for injury, pain, redness, rn and discharge, Cardiovascular: Negative for chest pain, palpitations Respiratory: + sob Abdomen/GI: Negative for abdominal pain, nausea, vomiting, diarrhea, and constipation, Back: Negative for injury and pain, MS/Extremity: Negative for injury and deformity, Skin: Negative for injury, rash, and discoloration, Neuro: Negative for headache, numbness, tingling, and seizure. Exam: 12:57 Constitutional: Thin female, awake buta ppears to have low energy. Head/Face: rn Normocephalic, atraumatic. ENT: dry MM Cardiovascular: Tachycardic, irregular Respiratory: + mild tachypnea, diminished bilateral bases, + left chest drain in place Abdomen/GI: soft, non-tender Skin: Warm, dry MS/ Extremity: Pulses equal, no cyanosis. Neuro: Awake, somnolent, GCS 15, moves all 4 extremities with 3+/5 strength Vital Signs: 12:54 BP 132 / 70; Pulse 115; Resp 22; Temp 97(TE); Pain 0/10; hb 14:09 BP 146 / 72; Pulse 121; Resp 28; Pulse Ox 91% on 5 lpm NC; hb 15:00 BP 133 / 84; Pulse 114; Resp 30; Pulse Ox 89% 5 lpm ; hb 16:12 BP 126 / 77; Pulse 113; Resp 22; Pulse Ox 85% on 5 lpm NC; tw2 17:30 BP 142 / 84; Pulse 121; Resp 27; Pulse Ox 93% on 5 lpm NC; hb 18:21 BP 148 / 95; Pulse 117; Resp 27; Pulse Ox 90% on 5 lpm NC; hb MDM: 12:53 Patient medically screened. rn 15:02 Differential diagnosis: CHF exacerbation, pneumonia, Pneumothorax pulmonary edema, rn Sepsis. Data reviewed: vital signs, nurses notes, lab test result(s), radiologic studies, and as a result, I will admit patient. Counseling: I had a detailed discussion with the patient and/or guardian regarding: the historical points, exam findings, and any diagnostic results supporting the discharge/admit diagnosis, lab results, radiology results, the need for further work-up and treatment in the hospital. ED course: Dr. Cabral took care of patient during hospitalization, consulted with him, he will speak with family, they are leaning towards home hospice, trying to see if possible to setup. Pt with worsening vitals and cxr compared to even a few days ago. If unable to setup home hospice in quick fashion, will admit for inpatient hospice. . 16:10 ED course: learning support services director, Shree Cabral and family have set up home hospice, are going to rn meet her at home, will dc home with EMS care given bedbound and oxygen requirement. . 12/09 12:56 Order name: CBC with Diff rn 12/09 12:56 Order name: Basic Metabolic Panel rn 12/09 12:56 Order name: Procalcitonin; Complete Time: 14:20 rn 12/09 12:56 Order name: BNP; Complete Time: 13:57 rn 12/09 12:56 Order name: CBC with Automated Diff; Complete Time: 13:37 EDMS 12/09 12:54 Order name: XRAY Chest (1 view); Complete Time: 14:20 rn 12/09 12:56 Order name: EKG; Complete Time: 12:56 rn 12/09 12:56 Order name: Basic Metabolic Panel; Complete Time: 13:57 EDMS 12/09 14:21 Order name: Blood Culture Adult (2) rn 12/09 12:56 Order name: IV Start; Complete Time: 13:15 rn 12/09 12:56 Order name: EKG - Nurse/Tech; Complete Time: 13:25 rn 12/09 15:17 Order name: Social Service Consult EDMS Administered Medications: 13:25 Drug: NS 0.9% 500 ml Route: IV; Rate: bolus; Site: right antecubital; hb 14:00 Follow up: Response: No adverse reaction; IV Status: Completed infusion; IV Intake: hb 500ml 15:02 Drug: NS 0.9% 500 ml Route: IV; Rate: bolus; Site: right antecubital; hb 15:45 Follow up: Response: No adverse reaction; IV Status: Completed infusion; IV Intake: hb 500ml 15:03 Drug: Zosyn 3.375 grams Route: IVPB; Infused Over: 60 mins; Site: right antecubital; hb 16:10 Follow up: Response: No adverse reaction; IV Status: Completed infusion; IV Intake: hb 100ml Disposition: 12/09/20 16:12 Discharged to Home. Impression: Dyspnea, unspecified, Hypoxemia, Dehydration, Pneumonia, unspecified organism. - Condition is Stable. - Discharge Instructions: Dehydration, Adult, Shortness of Breath, Hospice, Hypoxemia. - Medication Reconciliation Form, Thank You Letter, Antibiotic Education, Prescription Opioid Use form. - Follow up: Private Physician; When: As needed; Reason: Recheck today's complaints, Re-evaluation by your physician. - Problem is an ongoing problem. - Symptoms are unchanged. Signatures: Dispatcher [employer] EDUT Satnam Cabral MD MD rn Baxter, Heather, RN RN Teresa Sutherland RN RN tw2 Corrections: (The following items were deleted from the chart) 18:30 18:13 CORONAVIRUS+ ordered. EDMS EDMS 19:03 16:12 12/09/2020 16:12 Discharged to Home. Impression: Dyspnea, unspecified; Hypoxemia; hb Dehydration; Pneumonia, unspecified organism. Condition is Stable. Forms are Medication Reconciliation Form, Thank You Letter, Antibiotic Education, Prescription Opioid Use. Follow up: Private Physician; When: As needed; Reason: Recheck today's complaints, Re-evaluation by your physician. Problem is an ongoing problem. Symptoms are unchanged. rn
[2020-12-09 19:31] VITALS: TEMP 97
[2020-12-09 19:38] VITALS: BP 148/95; O2SAT 90
--- NOTE | 2020-12-10 18:44 | EKG ---
Test Date: 2020-12-09 Test Time: 13:29:34 Faculty Dean: DERRELL MEASUREMENT RESULTS: Intervals: Rate: 132 HI: QRSD: 68 QT: 336 QTc: 497 [place]: P: HI: QRS: -27 T: 260 INTERPRETIVE STATEMENTS: Atrial fibrillation with rapid ventricular response Nonspecific T wave abnormality Abnormal ECG Compared to ECG 12/05/2020 12:33:23 T-wave abnormality now present Left-axis deviation no longer present ST (T wave) deviation no longer present Possible ischemia no longer present Electronically Signed On 12-10-20 18:40:33 DISPUTE RESOLUTION SPECIALIST by Maxwell Cruz
--- OUTSIDE RECORDS SUMMARY | 2020-12-10 22:52 | XMS REPORT | Clinical Summary ---
:1940 Author Organization [facility] Address [address] [place] [address] Care Team Providers Name Role Phone Yanick [...] Added automatically from request for francis collado [phone] Encounters Date Type Specialty Care Team Description [...] Anesthesia Event Cardiothoracic Jaskaran Molina, Surgery 09/13/2020 [facility] General Internal Boyareddigari, Syncope a nd [...] Cardiothoracic Juan C, Stephanie Lentz MA 08/30/2020 [facility] Radiology Seraifn Schmidt MD 08/30/2020 [facility] Radiology Serafin Schmidt MD 08/30/2020 [facility] Radiology Serafin Schmidt MD 08/30/2020 Office Visit Cardiothoracic Serafin Schmidt Lung mass (Pr imary Dx); Surgery MD Judith Pre-op testing 08/30/2020 Orders Only Cardiothoracic Provider, Stephanie Voss MD 08/30/2020 Travel 08/27/2020 Travel after 12/10/2019 Surgical History Surgery Date Site/Laterality Comments MASTECTOMY BRONCHOSCOPY, USING 09/16/2020 Chest/Left Procedure: F LEXIBLE ELECTROMAGNETIC [facility] HOSCOPY, ELECTROMAGNETIC NAVIGATIONAL BRO NCHOSCOPY, BIOPSY OF LEFT U PPER LOBE MASS; Surgeon: Serafin Schmidt MD; Locat ion: [facility] OR; Serv ice: Thoracic; Later ality: Left; US, ENDOBRONCHIAL 09/16/2020 N/A Procedure: EBU S; Surgeon: Serafin Schmidt MD; Location: [facility] OR; Service: Thoraci c; Laterality: N/A; THORACENTESIS 09/16/2020 Chest/N/A Procedure: LEFT THORACENTESIS; Surgeon: Serafin Schmidt MD; Location: [facility] OR; Service: Thoraci c; Laterality: [...] Comments Blood Pressure 144/60 09/19/2020 7:23 AM [employer] Pulse 53 09/19/2020 7:23 AM [employer] CONSULTANT Temperature 36.8 C (98.3 F) 09/19/2020 7:23 AM [employer] CONSULTANT Respiratory Rate 18 09/19/2020 7:23 AM [employer] SAL[employer] CONSULTANT Oxygen Saturation 95% 09/19/2020 7:23 AM [employer]AM[employer] CONSULTANT Inhaled Oxygen Concentration - - Weight 67.1 kg (148 lb) 09/13/2020 8:05 AM [employer]AM[employer] CONSULTANT Height 157.5 cm (5' 2") 09/13/2020 8:05 AM [employer] CONSULTANT Body Mass Index 27.07 09/13/2020 8:05 AM [employer] CONSULTANT Plan of Treatment Health Maintenance Due Date Last Done Comments DIABETES: RETINAL EYE EXAM 01[birth year]04/1950 DIABETIC FOOT EXAM 01[birth year]04/1950 COVID-19 VACCINE (1 of 2) 1956 SHINGLES VACCINES (#1) 01/04/1990 65+ PNEUMOCOCCAL VACCINE (1 of 1 - PPSV23) 01/04/2005 INFLUENZA VACCINE 06/01/2020 09/01/2019 Procedures Procedure Name Priority Date/Time Associated Comments Diagnosis POC GLUCOSE Routine 09/19/2020 8:45 Results for this AM [employer] procedure are i n the results section. ESTIMATED GFR Routine 09/19/2020 5:30 Results fo r this AM [employer]SULTANT procedure are i n the results section. CBC HEMOGRAM Routine 09/19/2020 5:30 Results for this AM [employer] CONSULTANT procedure are i n the results section. BASIC METABOLIC PANEL Routine 09/19/2020 5:30 Re sults for this AM [employer] CONSULTANT procedure are i n the results section. POC GLUCOSE Routine 09/18/2020 9:02 Results for this PM [employer]ANT procedure are i n the results section. POC GLUCOSE Routine 09/18/2020 5:31 Results for this PM [employer] CONSULTANT procedure are i n the results section. POC GLUCOSE Routine 09/18/2020 1:09 Results for this PM [employer]ANT procedure are i n the results section. XR CHEST 1 VW PORTABLE STAT 09/18/2020 9:37 R esults for this AM [employer] CONSULTANT procedure are i n the results section. POC GLUCOSE Routine 09/18/2020 8:31 Results for this AM [employer] CONSULTANT procedure are i n the results section. POC GLUCOSE Routine 09/18/2020 5:31 Results for this AM [employer] CONSULTANT procedure are i n the results section. ESTIMATED GFR Routine 09/18/2020 3:00 Results fo r this AM [employer]ANT procedure are i n the results section. CBC HEMOGRAM Routine 09/18/2020 3:00 Results for this AM [employer] CONSULTANT procedure are i n the results section. BASIC METABOLIC PANEL Routine 09/18/2020 3:00 Re sults for this AM [employer] CONS[employer]ANT procedure are i n the results section. POC GLUCOSE Routine 09/17/2020 11:54 Results for this PM [employer]ANT procedure are i n the results section. POC GLUCOSE Routine 09/17/2020 4:46 Results for this PM [employer]ANT procedure are i n the results section. POC GLUCOSE Routine 09/17/2020 1:04 Results for this PM [employer]ANT procedure are i n the results section. POC GLUCOSE Routine 09/17/2020 8:19 Results for this AM [employer] CONSULTANT procedure are i n the results section. ESTIMATED GFR Routine 09/17/2020 4:10 Results fo r this AM [employer] CONS[employer]ANT procedure are i n the results section. PHOSPHORUS LEVEL Routine 09/17/2020 4:10 Results for this AM [employer] CONS[employer]ANT procedure are i n the results section. MAGNESIUM LEVEL Routine 09/17/2020 4:10 Results for this AM [employer] CONS[employer]ANT procedure are i n the results section. BASIC METABOLIC PANEL Routine 09/17/2020 4:10 Re sults for this AM [employer] CONS[employer]ANT procedure are i n the results section. HC COMPLETE BLD COUNT Routine 09/17/2020 4:10 Re sults for this W/AUTO DIFF AM [employer]ANT procedure are i n the results section. POC GLUCOSE Routine 09/16/2020 10:05 Results for this PM [employer]ANT procedure are i n the results section. XR CHEST 1 VW PORTABLE STAT 09/16/2020 8:58 R esults for this PM [employer]ANT procedure are i n the results section. POC GLUCOSE Routine 09/16/2020 5:59 Results for this PM [employer]ANT procedure are i n the results section. XR CHEST 1 VW PORTABLE STAT 09/16/2020 4:27 R esults for this PM [employer]ANT procedure are i n the results section. SURGICAL PATHOLOGY Routine 09/16/2020 4:11 Resul ts for this REQUEST PM [employer]ANT procedure are i n the results section. SURGICAL PATHOLOGY Routine 09/16/2020 4:11 Resul ts for this REQUEST PM [employer]ANT procedure are i n the results section. BAL CELL COUNT AND Routine 09/16/2020 2:46 Resul ts for this DIFFERENTIAL PM [employer]ANT procedure are i n the results section. CYTOLOGY Routine 09/16/2020 1:20 Results for this (NON-GYNECOLOGICAL) PM [employer] procedur e are in REQUEST the results section. CYTOLOGY Routine 09/16/2020 1:20 Results for this (NON-GYNECOLOGICAL) PM [employer] procedur e are in REQUEST the results section. CYTOLOGY Routine 09/16/2020 1:20 Results for this (NON-GYNECOLOGICAL) PM [employer] procedur e are in REQUEST the results section. CYTOLOGY Routine 09/16/2020 1:20 Results for this (NON-GYNECOLOGICAL) PM [employer]ANT procedur e are in REQUEST the results section. WV AN ELECTIVE Routine 09/16/2020 1:03 Results f or this ENDOTRACHEAL AIRWAY PM [employer]ANT procedur e are in the results section. CYTOLOGY Routine 09/16/2020 10:45 Results for this (NON-GYNECOLOGICAL) AM [employer]ANT procedur e are in REQUEST the results section. CYTOLOGY Routine 09/16/2020 10:45 Results for this (NON-GYNECOLOGICAL) AM [employer]ANT procedur e are in REQUEST the results section. CYTOLOGY Routine 09/16/2020 10:44 Results for this (NON-GYNECOLOGICAL) AM [employer]ANT procedur e are in REQUEST the results section. CYTOLOGY Routine 09/16/2020 10:44 Results for this (NON-GYNECOLOGICAL) AM [employer]ANT procedur e are in REQUEST the results section. TTE COMPLETE, W Routine 09/16/2020 10:00 Results for this CONTRAST, W DOPPLER AM [employer]ANT procedur e are in ([id number]) the results section. POC GLUCOSE Routine 09/16/2020 9:16 Results for this AM [employer]ANT procedure are i n the results section. CT CHEST WO CONTRAST STAT 09/16/2020 8:50 Res ults for this AM [employer] CONSULTANT procedure are i n the results section. CYTOLOGY Routine 09/16/2020 6:12 Results for this (NON-GYNECOLOGICAL) AM [employer]ANT procedur e are in REQUEST the results section. CYTOLOGY Routine 09/16/2020 6:12 Results for this (NON-GYNECOLOGICAL) AM [employer]ANT procedur e are in REQUEST the results section. CYTOLOGY Routine 09/16/2020 6:12 Results for this (NON-GYNECOLOGICAL) AM [employer]ANT procedur e are in REQUEST the results section. POC GLUCOSE Routine 09/16/2020 4:25 Results for this AM [employer] CONS[employer]ANT procedure are i n the results section. ABO AND RH CONFIRMATION Routine 09/16/2020 4:25 Results for this AM [employer] CONS[employer]ANT procedure are i n the results section. B NATRIURETIC PEPTIDE Routine 09/16/2020 4:25 Re sults for this AM [employer]ANT procedure are i n the results section. HC COMPLETE BLD COUNT Routine 09/16/2020 4:25 Re sults for this W/AUTO DIFF AM [employer]ANT procedure are i n the results section. ESTIMATED GFR Routine 09/16/2020 4:00 Results fo r this AM [employer] CONSULTANT procedure are i n the results section. PHOSPHORUS LEVEL Routine 09/16/2020 4:00 Results for this AM [employer] CONS[employer]ANT procedure are i n the results section. MAGNESIUM LEVEL Routine 09/16/2020 4:00 Results for this AM [employer] CONS[employer]ANT procedure are i n the results section. BASIC METABOLIC PANEL Routine 09/16/2020 4:00 Re sults for this AM [employer]ANT procedure are i n the results section. ANTIBODY IDENTIFICATION Routine 09/16/2020 1:35 Results for this AM [employer]ANT procedure are i n the results section. TYPE AND SCREEN Routine 09/16/2020 1:35 Results for this AM [employer] CONS[employer]ANT procedure are i n the results section. POC GLUCOSE Routine 09/16/2020 1:06 Results for this AM [employer] CONS[employer]ANT procedure are i n the results section. URINE CULTURE Routine 09/15/2020 9:52 Results fo r this PM [employer]ANT procedure are i n the results section. POC GLUCOSE Routine 09/15/2020 8:59 Results for this PM [employer]ANT procedure are i n the results section. URINALYSIS SCREEN AND Routine 09/15/2020 6:55 Re sults for this MICROSCOPY, WITH REFLEX PM [employer]ANT proc edure are in TO CULTURE the results section. POC GLUCOSE Routine 09/15/2020 5:11 Results for this PM [employer]ANT procedure are i n the results section. POC GLUCOSE Routine 09/15/2020 11:52 Results for this AM [employer] CONSULTANT procedure are i n the results section. POC GLUCOSE Routine 09/15/2020 8:08 Results for this AM [employer] CONSULTANT procedure are i n the results section. ESTIMATED GFR Routine 09/15/2020 4:50 Results fo r this AM [employer] CONSULTANT procedure are i n the results section. PHOSPHORUS LEVEL Routine 09/15/2020 4:50 Results for this AM [employer]AM[employer] CONSULTANT procedure are i n the results section. MAGNESIUM LEVEL Routine 09/15/2020 4:50 Results for this AM [employer] CONSULTANT procedure are i n the results section. BASIC METABOLIC PANEL Routine 09/15/2020 4:50 Re sults for this AM [employer] CONSULTANT procedure are i n the results section. HC COMPLETE BLD COUNT Routine 09/15/2020 4:50 Re sults for this W/AUTO DIFF AM [employer]ANT procedure are i n the results section. POC GLUCOSE Routine 09/14/2020 9:19 Results for this PM [employer]ANT procedure are i n the results section. POC GLUCOSE Routine 09/14/2020 5:11 Results for this PM [employer]ANT procedure are i n the results section. POC GLUCOSE Routine 09/14/2020 1:39 Results for this PM [employer]ANT procedure are i n the results section. HC COMPLETE BLD COUNT STAT 09/14/2020 8:44 Re sults for this W/AUTO DIFF AM [employer]ANT procedure are i n the results section. POC GLUCOSE Routine 09/14/2020 7:08 Results for this AM [employer] CONSULTANT procedure are i n the results section. ESTIMATED GFR STAT 09/14/2020 7:08 Results fo r this AM [employer]ANT procedure are i n the results section. BASIC METABOLIC PANEL STAT 09/14/2020 7:08 Re sults for this AM [employer] CONSULTANT procedure are i n the results section. HC COMPLETE BLD COUNT Routine 09/14/2020 5:30 Re sults for this W/AUTO DIFF AM [employer] CONS[employer]ANT procedure are i n the results section. HEMOGLOBIN A1C Routine 09/14/2020 5:30 Results f or this AM [employer]ANT procedure are i n the results section. BLOOD CULTURE, AEROBIC Routine 09/13/2020 8:40 R esults for this & ANAEROBIC PM [employer]ANT procedure are i n the results section. BLOOD CULTURE, AEROBIC Routine 09/13/2020 8:40 R esults for this & ANAEROBIC PM [employer]ANT procedure are i n the results section. POC GLUCOSE Routine 09/13/2020 7:28 Results for this PM [employer] CONS[employer]ANT procedure are i n the results section. TROPONIN Timed 09/13/2020 5:00 Results for this PM [employer]ANT procedure are i n the results section. COVID-19 QUALITATIVE STAT 09/13/2020 3:07 Res ults for this PCR PM [employer]ANT procedure are i n the results section. NM LUNG PERFUSION STAT 09/13/2020 1:26 Result s for this IMAGING PM [employer]ANT procedure are i n the results section. CT CHEST WO CONTRAST Routine 09/13/2020 12:50 Res ults for this PM [employer]ANT procedure are i n the results section. TROPONIN Timed 09/13/2020 11:56 Results for this AM [employer] CONSULTANT procedure are i n the results section. US DUPLEX VENOUS LOWER STAT 09/13/2020 11:00 R esults for this EXTREMITY RIGHT AM [employer]ANT procedure ar e in the results section. ECG 12-LEAD STAT 09/13/2020 9:59 Results for this AM [employer] CONSULTANT procedure are i n the results section. MAGNESIUM LEVEL STAT 09/13/2020 8:18 Results for this AM [employer] CONSULTANT procedure are i n the results section. ESTIMATED GFR STAT 09/13/2020 8:18 Results fo r this AM [employer] CONSULTANT procedure are i n the results section. TROPONIN STAT 09/13/2020 8:18 Results for this AM [employer] CONSULTANT procedure are i n the results section. BASIC METABOLIC PANEL STAT 09/13/2020 8:18 Re sults for this AM [employer] CONSULTANT procedure are i n the results section. PARTIAL THROMBOPLASTIN STAT 09/13/2020 8:18 R esults for this TIME (PTT) AM [employer] CONS[employer]ANT procedure are i n the results section. PROTHROMBIN TIME WITH STAT 09/13/2020 8:18 Re sults for this INR AM [employer] CONS[employer]ANT procedure are i n the results section. HC COMPLETE BLD COUNT STAT 09/13/2020 8:18 Re sults for this W/AUTO DIFF AM [employer]ANT procedure are i n the results section. ECG 12-LEAD Routine 09/13/2020 8:14 Results for this AM [employer] CONSULTANT procedure are i n the results section. ECG ED PRELIMINARY Routine 09/13/2020 8:13 Resul ts for this INTERPRETATION AM [employer]ANT procedure are in the results section. ECG ED PRELIMINARY Routine 09/13/2020 8:13 Resul ts for this INTERPRETATION AM [employer] CONS[employer]ANT procedure are in the results section. [id number] Routine 09/12/2020 MRI BRAIN W WO CONTRAST [...] BASE TO Routine 08/16/2020 MID THIGH after 12/10/2019 Results POC glucose (09/19/2020 8:45 AM [employer] CONSULTANT)Only the most recent of24 resultswithin the time period is included. POC glucose 174 (H) 65 - 99 mg/dL [facility] Comment: HOSPITAL Efficiency Analyst Name: Germaine Vasquez Device ID: [id number] Chartable: [facility] Notified RN Specimen Blood Performing Organization Address City/[facility] Phon e Number [facility] DEPARTMENT OF PATHOLOGY AND [address] [place], [place] [address] [address] [address] Estimated GFR (09/19/2020 5:30 AM [employer] CONSULTANT)Only the most recent of7 resultswithin the time period is included. [facility] Estimated GFR 39 (A) mL/min/1.73 [facility] Comment: HOSPITAL Catergory Units Interpretation G1 >=90 [...] in 2014. Specimen Plasma Performing Organization Address City/[facility] Phon e Number [facility] DEPARTMENT OF PATHOLOGY AND [address] [place], [place] [address] [address] [address] CBC hemogram (09/19/2020 5:30 AM [employer] SAL[employer] VITAMIN CONSULTANT)Only the most recent of2 resultswithin the time [...] MEDICAL CENTER Specimen Plasma Performing Organization Address City/[facility] Phon e Number [facility] DEPARTMENT OF PATHOLOGY AND [address] [place] [address] [phone] [address] Basic metabolic panel (09/19/2020 5:30 AM [employer] SAL[employer] VITAMIN CONSULTANT)Only the most recent of7 results within the [...] MEDICAL CENTER Specimen Plasma Performing Organization Address City/[facility] Phon e Number [facility] DEPARTMENT OF PATHOLOGY AND [address] [place] [address] [phone] [address] XR Chest 1 Vw Portable (09/18/2020 9:37 AM [employer]AMIN CONSULTANT)Only the most recent of3 results within the [...] Radiology Results Incoming - 09/18/2020 9:45 AM [employer] CONSULTANT EXAMINATION: XR CHEST 1 VW PORTABLE HISTORY: [...] City/State/ZIP Code Phon e Number [facility] [address] [place] [address] CBC with platelet and differential (09/17/2020 4:10 AM [employer] SAL[employer] VITAMIN CONSULTANT)Only the most recent of6 resultswithin the time period is included. WBC 8.54 4.50 - 11.00 [facility] RBC 4.85 4.20 - 5.50 [facility] HGB 12.4 12.0 - 16.0 [facility]/dL [facility] HCT 39.2 37.0 - 47.0 % [facility] MCV 80.8 (L) 82.0 - 100.0 [facility] MCH 25.6 (L) 27.0 - 34.0 pg [facility] MCHC 31.6 31.0 - 37.0 [facility] g/dL [facility] RDW - SD 38.2 37.0 - [...] Immature granulocytes 0.4Comment: 0.0 - 1.0 % [facility] "Immature HOSPITAL granulocytes" (promyelocytes , myelocytes, metamyelocytes ) Specimen Plasma Performing Organization Address [facility] Phon e Number [facility] DEPARTMENT OF PATHOLOGY AND [address] [place] [phone] Phosphorus level (09/17/2020 4:10 AM [employer] SAL[employer] V[employer]IN CONSULTANT)Only the most recent of3 resultswithin the time period is included. Pathologist Sig nature Phosphorus 2.4 2.4 - 4.5 mg/dL [facility] Specimen Plasma Performing Organization Address [facility] Phon e Number [facility] DEPARTMENT OF PATHOLOGY AND [address] [place] [phone] Magnesium level (09/17/2020 4:10 AM [employer] SAL[employer] V[employer]AMIN CONSULTANT)Only the most recent of4 resultswithin the time period is included. Pathologist Sig nature Magnesium 1.7 1.6 - 2.4 mg/dL [facility] L Specimen Plasma Performing Organization Address [facility] Phon e Number [facility] DEPARTMENT OF PATHOLOGY AND [address] [place] [phone] [place] [phone] Surgical pathology request (09/16/2020 4:11 PM [employer] V[employer]IN CONSULTANT)Only the most recent of2 resultswithin the time period is included. [facility] DEPARTMENT OF PATHOLOGY AND GENOMIC MEDICINE Surgical pathology See link below for [facility] DEPARTMENT O F report PDF Lab Report PATHOLOGY AND GENOMIC MEDICINE Result status This is Supplemental [facility] DEPARTMENT OF Report for PATHOLOGY AND [id number] GENOMIC MEDICINE Specimen Narrative Performed At NEOGENOMICS [facility] DEPARTMENT OF PATHOLOGY AND GENOMIC LUNG NGS MEDICINE [id number] DOS 09/16/2020 Block B1 Performing Organization Address City/[facility] Phon e Number [facility] DEPARTMENT OF PATHOLOGY AND [address] [place] [phone] GENOMIC MEDICINE BAL cell count and differential (09/16/2020 2:46 PM [employer]IN CONSULTANT) BAL specimen source MAX BAL [facility] BAL cell count 0.040 m/mL [facility] Comment: HOSPITAL Normal ranges: Nonsmokers: 0.007 - 0.363 Smokers: 0 - 1.31 73% viability, many rbc's present BAL PAMS 3 % [facility] Comment: [facility] Normal ranges: Nonsmokers: 65 - 100 Smokers: 81 - 100 BAL PMNS 83 % [facility] Comment: [facility] Normal ranges: Nonsmokers: 0 - 3 Smokers: 0 - 2 BAL eosinophils 10 % [facility] Comment: HOSPITAL Normal ranges: Nonsmokers: 0 - 1 Smokers: 0 - 1 BAL lymphs 4 % [facility] Comment: HOSPITAL Normal ranges: Nonsmokers: 0 - 10 Smokers: 0 - 5 Specimen Fluid Narrative Performed At [facility] DEPARTMENT OF PATHOLOGY AND GENOMIC MEDICINE Performing Organization Address City/[facility] Phon e Number [facility] DEPARTMENT OF PATHOLOGY AND [address] [place] [address] 0 GENOMIC MED[address] [address] Cytology (non-gynecological) request (09/16/2020 1:20 PM [employer] SAL[employer] V[employer]AMIN CONSULTANT)Only the most recent of11 resultswithin the time period is included. [facility] DEPARTMENT OF PATHOLOGY AND GENOMIC MEDICINE Cytology See link below [facility] DEPARTMENT OF (non-gynecological) for PDF Lab PATHOLOGY AND report Report GENOMIC MEDICINE Result status This is Final [facility] DEPARTMENT OF Report for PATHOLOGY AND [id number] GENOMIC MEDICINE Specimen Performing Organization Address City/[facility] Phon e Number [facility] DEPARTMENT OF PATHOLOGY AND [address] [place] [phone] GENOMIC MEDICINE Airway (09/16/2020 1:03 PM [employer] V[employer]AMIN CONSULTANT) Narrative Performed At Jaskaran Molina MD 09/16/2020 [...] and 3D if needed) (09/16/2020 10:00 AM [employer] V[employer]AMIN CONSULTANT) Specimen Narrative Performed At [facility] Echo cardiography Report [address] [facility], [place] [address] Pat.Name: DAHIANA WEATHERS [facility].ID: [id number] .Date: 09/16/2020 Refer.MD: ANALI BURGOS MD Exam Time: 9:19:00 AM Study Type:R outine Echo Height: 62in Weight: 148lb BSA: 1.68 m2 Ag e: 1940,80Y Sex: FEMALE BP: 120/56 HR: 73 bpm Sonogr phr: ODILON Friend, RDCS Pat. Stat.:Inpatient Room: [place] [address] Study Status:Final Echo Event ID:[id number] Order ID: [id number] Reason for Study:Syncope Procedures: 2D Echo, Colorflow [...] of 5 mmHg. MEASUREMENTS: 2D Parasternal [place] Ao An 1.9 cm LVPWd 1 cm [...] Radiology Results In - 2019 1:09 PM [facility] Echocardiography Report [address] [place] [address] Pat.Name: DAHIANA WEATHERS Pat.I D: [id number] .Date: 09/16/2020 Refer .MD: ANALI BURGOS MD Exam Time: 9:19:00 AM Study Type:Routine Echo Height: 62in Weigh t: 148lb BSA: 1.68 m2 Age: 3 1940,80Y Sex: FEMALE BP: 120/56 HR: 73 bpm Sonog rphr: ODILON Freind, RDCS Pat. Stat.:Inpatient Room: [place] [address] Study Status:Final Echo Event ID:[id number] Order ID: [id number] Reason for Study:Syncope Procedures: 2D Echo, Colorflow [...] of 5 mmHg. MEASUREMENTS: 2D Parasternal [place] Ao An 1.9 cm LVPW d 1 [...] City/State/ZIP Code Phon e Number [facility] [address] [place] [address] CT Chest Wo Contrast (09/16/2020 8:50 AM RETAIL SALES VITAMIN CONSULTANT)Only the most recent of2 results within the time period is included. Specimen Narrative Performed At [facility]ST WO CONTRAST CLINICAL [...] Radiology Results Incoming - 09/16/2020 9:37 AM RETAIL SALES VITAMIN CONSULTANT EXAMINATION: CT CHEST WO CONTRAST CLINICAL HISTORY: [...] City/State/ZIP Code Phon e Number RAD[facility] [address] [place] [address] ABO and Rh confirmation (09/16/2020 4:25 AM RETAIL SALES VITAMIN CONSULTANT) Pathologist Sig nature ABO grouping A [facility] Rh type NEG [facility] Specimen Plasma Performing Organization Address [facility] Phon e Number [facility] DEPARTMENT OF PATHOLOGY AND [address] [place] [address] [phone] [address] B natriuretic peptide (09/16/2020 4:25 AM RETAIL SALES VITAMIN CONSULTANT) Pathologist Sig nature BNP 56 0 - 100 pg/mL [facility] Specimen Blood Performing Organization Address City/[facility] Phon e Number [facility] DEPARTMENT OF PATHOLOGY AND [address] [place] [address] [phone] [address] Antibody identification (09/16/2020 1:35 AM RETAIL SALES VITAMIN CONSULTANT) Pathologist Sig nature Antibody ID POS, Anti-D [facility] Specimen Performing Organization Address [facility] Phon e Number [facility] DEPARTMENT OF PATHOLOGY AND [address] [place] [address] [phone] [address] Type and screen (09/16/2020 1:35 AM RETAIL SALES VITAMIN CONSULTANT) Pathologist Sig nature ABO grouping A [facility] Rh type NEG [facility] Antibody screen (gel) POS [facility] Specimen Plasma Performing Organization Address [facility] Phon e Number [facility] DEPARTMENT OF PATHOLOGY AND [address] [place] [address] [phone] [address] Urine culture (09/15/2020 9:52 PM RETAIL SALES VITAMIN CONSULTANT) Urine culture Mixed danny <=10-3 col/cc [facility] IST isolate Comment: HOSPITAL Specimen Information Specimen Source: Urine Specimen Site: Catheterized Specimen Urine - Catheterized Performing Organization Address City/[facility]/ZIP [facility] Phon e Number [facility] DEPARTMENT OF PATHOLOGY AND [address] [place] [address] [phone] [address] Urinalysis screen and microscopy, with reflex to culture (09/15/2020 6:55 PM RETAIL SALES VITAMIN CONSULTANT) Specimen site Catheterized [facility] [...] MEDICAL CENTER Leukocyte esterase, Small (A) Negative [facility] Epithelial cells, UA 2 /HPF [facility] WBC, UA 32 (H) 0 - 4 /HPF [facility] RBC, UA 3 0 - 5 /HPF [facility] Bacteria, UA Few None seen [facility] Yeast, UA None seen [facility] Yeast with None seen [facility] pseudohyphae, [facility] Hyaline casts, UA 20 /LPF [facility] Specimen Urine Performing Organization Address City/[facility] Phon e Number [facility] DEPARTMENT OF PATHOLOGY AND [address] [place] [address] Hemoglobin A1c (09/14/2020 5:30 AM RETAIL SALES VITAMIN CONSULTANT) Pathologist [facility] Hemoglobin A1C 9.1 (H) 4.0 - 5.6 % [facility] Comment: HOSPITAL HbA1c cutoffs for diagnosing diabetes: [...] 1 diabetes. Specimen Blood Performing Organization Address City/[facility] Phon e Number [facility] DEPARTMENT OF PATHOLOGY AND [address] [place] [address] Blood culture, aerobic & anaerobic (09/13/2020 8:40 PM RETAIL SALES VITAMIN CONSULTANT)Only the most recent of2 resultswithin the time period is included. Blood culture No growth after 5 days of incubation. JULIAN ALARCON isolate Comment: HOSPITAL Specimen Information Specimen Source: Blood Specimen Site: Left Forearm Specimen Blood Performing Organization Address City/[facility] Phon e Number [facility] DEPARTMENT OF PATHOLOGY AND [address] [place] [address] [phone] [address] Troponin (09/13/2020 5:00 PM RETAIL SALES VITAMIN CONSULTANT)Only the most recent of3 resultswithin the time period is included. [facility] Troponin 0.012 0.000 - 0.040 [facility] Comment: ng/mL HOSPITAL In patients suspected of [...] 0.020 ng/mL Specimen Plasma Performing Organization Address City/State/[facility] Code Phon e Number [facility] DEPARTMENT OF PATHOLOGY AND [address] [place], [place] [phone] [address] COVID-19 qualitative PCR (09/13/2020 3:07 PM RETAIL SALES VITAMIN CONSULTANT) Interpretation Negative results do not prec lude 2019-nCoV infection and should not be used as the sole basis for treatment or other patient management decisions. Negative results must be combined with clinical observations, patient history, and epidemiological RAMIREZ information. [facility] COVID-19 qualitative Not-Detected Not-Detecte [facility] PCR result d [facility] COVID-19 qualitative See link below for [employer] PCR PDF Lab [facility] ReportComment: Case HOSPITAL Number: [id number] Specimen Nasopharyngeal swab Performing Organization Address City/State/ZIP Code Phon e Number [facility] DEPARTMENT OF PATHOLOGY AND [address] [place], [place] [phone] GENOMIC MEDICINE [facility] [address] [place] [address] [facility] Lung Perfusion Imaging (09/13/2020 1:26 PM RETAIL SALES VITAMIN CONSULTANT) Specimen Narrative Performed At PROCEDURE: NM LUNG [...] to the CT study report for details. [facility]-[id number] Procedure Note Interface, Radiology Results Incoming - 09/13/2020 1:56 PM RETAIL SALES VITAMIN CONSULTANT PROCEDURE: NM LUNG PERFUSION IMAGING INDICATION: PE [...] to the CT study report for details. [facility]-[id number] Performing Organization Address City/State/ZIP Code Phon e Number [facility] [address] [facility]. [place] [phone] Us duplex venous lower extremity (09/13/2020 11:00 AM RETAIL SALES VITAMIN CONSULTANT) Specimen Narrative Performed At [facility] Vascular U ltrasound Laboratory Lower Extr emity Venous Report [address] [facility], [address], [place] [address] Pat.Name: DAHIANA WEATHERS Pat.ID: [id number] .Date: 09/13/2020 Refer.MD: CAS PATE MD, RAHEEM PEREZ, ALEX Genao MD Exam Time: 10:32:00 AM Study Type:LE Venous Height: 62in Weight: 148lb BSA: 1.68 m2 Ag e: 1940,80Y Sex: FEMALE Sonogrphr: JAVIER KoromaS, Tong Gutierrez RDMS, RVT Pat. Stat.:Inpatient Room: ED19 Tape Vol: CM, CPT - 4: 02871 Echo Event ID:[id number] Order ID: [id number] Reason for Study:Leg swelling or pain, D [...] Radiology Results In - 2019 3:09 PM [facility] Vascular Ultrasound Laboratory Lower Extremity Veno us Report [address] [place] [address] Pat.Name: DAHIANA WEATHERS Pat.I D: [id number] .Date: 09/13/2020 Refer.MD: CAS PATE MD, FARHAT Jurado, ALEX Genao MD Exam Time: 10:32:00 AM Study Type:LE Venous Height: 62in Weigh t: 148lb BSA: 1.68 m2 Age: 3 1940,80Y Sex: FEMALE Sonogrphr: TITO Koroma, Tong Gutierrez RDMS, RVT Pat. Stat.:Inpatient Room: ED19 Tape Vol: CM, CPT - 4: 89284 Echo Event ID:[id number] Order ID: [id number] Reason for Study:Leg swelling or pain, D [...] visualized veins. Results given to Dr. Parsons 6688 PHYSICIAN INTERPRETATION: Venous examination of the right lower ex tremity and left groin demonstrated no evidence of venous throm bosis in the visualized veins. Normal compressibility and augmentation of all veins visualized. FINDINGS: Signed 09/13/2020 03:09 PM Santiago Samson MD, [facility] Performing Organization Address City/State/[facility] e Number [facility] [address] [place] [address] ECG 12 lead (09/13/2020 9:59 AM RETAIL SALES VITAMIN CONSULTANT)Only the most recent of2 resultswithin the time [...] left-Electronically Signed By Courtney STARR, Yanick Raza ([id number]) on [facility] MUSE 09/13/2020 7:27:19 PM Specimen Narrative Performed At This result has an attachment that is no t available. Performing Organization Address City/State/[facility] Phon e Number [facility] MUSE [address] [place] [phone] Partial thromboplastin time, activated (09/13/2020 8:18 AM RETAIL SALES VITAMIN CONSULTANT) PTT 24.1 23.0 - 36.0 [facility] Comment: [facility] PTT therapeutic range for unfractionated heparin is 61.0-112.0 seconds which corresponds to Anti-Xa 0.3-0.7 U/ml. Specimen Blood Performing Organization Address City/[facility] Phon e Number [facility] DEPARTMENT OF PATHOLOGY AND [address] [place] [address] [phone] [address] Prothrombin time with INR (09/13/2020 8:18 AM RETAIL SALES VITAMIN CONSULTANT) Pathologist [facility] Prothrombin time 14.5 11.5 - 14.5 [facility] INR 1.1 [employer] Comment: AGNES The International Normalized Ratio (INR) is a [facility] HOSPITAL monitoring tool for patients who are stable on oral anticoagulant therapy. An INR of 2.0-3.0 is suggested for deep vein thrombosis/pulmonary embolism. Specimen Blood Performing Organization Address [facility] Phon e Number [facility] DEPARTMENT OF PATHOLOGY AND [address] [place] [address] [phone] [address] ECG ED Preliminary Interpretation - Not an Order (09/13/2020 8:13 AM RETAIL SALES VITAMIN CONSULTANT)Only the most recent of2 resultswithin the time period is included. Narrative Performed At Alex Leo MD 6:44 AM ECG ED Preliminary Interpretation - Not an Order Performed by: Alex Leo MD Authorized by: Alex Leo MD ECG reviewed by ED Physician in the abse nce of a supermarket manager: yes Interpretation: Interpretation: abnormal Rate: ECG rate: [...] into our imaging system. Performing Organization Address City/[facility]/ZIP Code Phon e Number HM [facility] [address] [place] [address] PET/CT Skull Base To Mid Thigh (08/29/2020)Only [...] into our imaging system. Performing Organization Address [facility] Code Phon e Number [facility] [address] [place] [address] CT Chest External Study (08/16/2020 8:43 AM CDT) Specimen Narrative Performed At This exam was not acquired at a [facility] facility and has not been [facility] interpreted by a [facility] Provider. T he exam was imported into our imaging system. Performing Organization Address [facility] Phon e Number HM [facility] [address] [place] [address] CT Chest Wo Contrast Abdomen Wo Contrast Pelvis Wo Contrast (08/16/2020) Narrative Performed At This result has an attachment that is no t available. after 12/10/2019
--- OUTSIDE RECORDS SUMMARY | 2020-12-10 22:54 | XMS REPORT | Continuity of Care Document ---
:1940 Author Organization [facility] t Address [address] [place] [address] Care Team Providers Name Role Phone Bryn [...] Expiration Date Sour ce Number UHC MEDICAREUHC [id number] 2020 [place] MEDICARE 00:00:00 [facility] [id number]/[id number] -Present MO Problems Condition Condition Condition Status Onset Resolution Last Treating Co mments Source Name Details Category Date Date Treatment Clinician Date Syncope Syncope Disease Active 2019-11 [facility] and 11-13 [facility] collapse collapse 00:00: st 00 Syncope Syncope Disease Active 2019-11 [facility] 11-13 [facility] 00:00: st 00 Lung mass Lung mass Disease Active 2019-11 Overview: [place] 0 Added [facility] 00:00: automatic st 00 ally from request for surgery [id number] Allergies, Adverse Reactions, Alerts Allergy Allergy Status Severity Reaction(s) Onset Inactive Treating Comm ents Source Name Type Date Date Clinician Iodine Propensi Active Rash 2019-11 [place] And ty to 11-13 [facility] Iodide adverse 00:00: st Containi reaction 00 ng s to Products drug Iodine Propensi Active Hives [place] ty to 05-18 [facility] adverse 00:00: st reaction 00 s to drug Social History Social Habit Start Date Stop Date Quantity Comments Source History [facility] odist Alcohol Std Drinks History [facility] Alcohol Binge Sex Assigned At [facility] ethodist Tobacco use and 2020-09-18 2020-09-18 Never used [facility] ethodist exposure 00:00:00 00:00:00 Alcohol intake 2020-09-18 2020-09-18 [facility] thodist 00:00:00 00:00:00 non-drinker (finding) History SDTN 2020-08-30 2020-08-30 1 [place] [facility] odist Alcohol Frequency 00:00:00 00:00:00 Smoking Status Start Date Stop Date Source [facility] Ordered Filled Start Stop Current Ordering Indication Dosage Frequency Signature Comments Components Source Medication Medication Date Date Medication? Clinician (SIG) Name Name hyoscyamine 2019-11 2020- No 1{tbl} Q.[id number] Take 1 [place] sulfate 11-19 [id number] tablet by [facility] 0.125 mg 10:27: 00:00 [...] mL) insulin pen dicyclomine 2019-11 Yes 20mg Q.90200705 Take 20 mg [facility]ano (BENTYL) 20 -19 [id number] by mouth 3 [facility] mg tablet 10:27: [...] st tablet 00 clonIDINE 2020- No .1mg Q.52766159 Take 0.1 [facility] (CATAPRES) 909-19 [id number] mg by M ethodi 0.1 MG 00:00: 00:[address] tablet 00 :00 (three) times a day. methscopola 2019- No 5mg QD Take 5 mg [facility]ano mine 05-30 by mouth [facility] (PAMINE 00:00: 00:[address] FORTE) 5 MG 00 :00 tablet insulin Yes 8U Q.[id number] Inject 8 [facility] ASPART - [id number] Units Method i (NovoLOG) 00:00: 3D under [...] blood 2020-09-19 07:23:34 144 mm[Hg] Gera n [facility] pressure Diastolic blood 2020-09-19 07:23:34 60 mm[Hg] Farnaz on [facility] pressure Heart rate 2020-09-19 07:23:34 53 /min Darci Joya Body temperature 2020-09-19 07:23:34 36.83 Dawna Fuad ton [facility] Respiratory rate 2020-09-19 07:23:34 18 /min Fuad [...] 1 VW PORTABLE 2020-09-18 09:37:58 Eagle Serra [facility] POC GLUCOSE 2020-09-18 08:31:00 Hendrix, Adalid Que [...] BLD COUNT 2020-09-17 04:10:00 Hoffman, Floryaniyah oakes [facility] W/AUTO DIFF BASIC METABOLIC PANEL 2020-09-17 04:10:00 HoffmanFlory [facility] MAGNESIUM LEVEL 2020-09-17 04:10:00 Flory Hoffman Me thodist PHOSPHORUS LEVEL 2020-09-17 04:10:00 Flory Hoffman M ethodist ESTIMATED GFR 2020-09-17 04:10:00 HendrixAdalid farah Met hodist POC GLUCOSE 2020-09-16 22:05:00 HendrixAdalid farah Met hodist XR CHEST 1 VW PORTABLE 2020-09-16 20:58:39 Flory Hoffman [facility] POC GLUCOSE 2020-09-16 17:59:00 Hendrix, Adalid Bejarano Met hodist XR CHEST 1 VW PORTABLE 2020-09-16 16:27:11 Flory Hoffman [facility] SURGICAL PATHOLOGY 2020-09-16 16:11:00 Adalid Hendrix [facility] REQUEST BAL CELL COUNT AND 2020-09-16 14:46:00 Adalid Hendrix [facility] DIFFERENTIAL CYTOLOGY 2020-09-16 13:20:00 HendrixAdalid farah Met hodist (NON-GYNECOLOGICAL) REQUEST AR AN ELECTIVE 2020-09-16 13:03:19 Jaskaran Molina Meth odist ENDOTRACHEAL AIRWAY CYTOLOGY 2020-09-16 10:45:00 HendrixAdalid farah Met hodist (NON-GYNECOLOGICAL) REQUEST CYTOLOGY 2020-09-16 10:44:00 HendrixAdalid farah Met hodist (NON-GYNECOLOGICAL) REQUEST TTE COMPLETE, W CONTRAST, 2020-09-16 10:00:00 Kendra Penaist W DOPPLER ([id number]) [place] POC GLUCOSE 2020-09-16 09:16:[address] CHEST WO CONTRAST 2020-09-16 08:50:00 Apple Agarwal [facility] [place] CYTOLOGY 2020-09-16 06:12:00 HendirxAdalid farah Met hodist (NON-GYNECOLOGICAL) REQUEST HC COMPLETE BLD COUNT 2020-09-16 04:25:00 Flory Hoffman [facility] W/AUTO DIFF B NATRIURETIC PEPTIDE 2020-09-16 04:25:00 Cipriano Powell [facility] [place] ABO AND RH CONFIRMATION 2020-09-16 04:25:00 Alea Osborne POC GLUCOSE 2020-09-16 04:25:00 Burgos, Anali Joya BASIC METABOLIC PANEL 2020-09-16 04:00:00 HoffmanFlory matos [facility] MAGNESIUM LEVEL 2020-09-16 04:00:00 HoffmanFlory matos Fl thodist PHOSPHORUS LEVEL 2020-09-16 04:00:00 HoffmanFlory matos ethodist ESTIMATED GFR 2020-09-16 04:00:00 Burgos, Anali Joya TYPE AND SCREEN 2020-09-16 01:35:00 Alea Osborne ANTIBODY IDENTIFICATION 2020-09-16 01:35:00 Burgos, Anali Faganist POC GLUCOSE 2020-09-16 01:06:00 Burgos, Anali Joya URINE CULTURE 2020-09-15 21:52:00 Darci Fritz Meth odist Alex Ryan POC GLUCOSE 2020-09-15 20:59:00 Burgos, Anali Joya URINALYSIS SCREEN AND 2020-09-15 18:55:00 Kendra Pena on [facility] MICROSCOPY, WITH REFLEX [place] TO CULTURE POC GLUCOSE 2020-09-15 17:11:00 Burgos, Anali Faganist POC GLUCOSE 2020-09-15 11:52:00 Burgos, Anali Bejarano [facility] POC GLUCOSE 2020-09-15 08:08:00 Burgos, Anali Bejarano [facility] HC COMPLETE BLD COUNT 2020-09-15 04:50:00 HoffmanFlory [facility] W/AUTO DIFF BASIC METABOLIC PANEL 2020-09-15 04:50:00 HoffmanEstephania matosca [place] oakes [facility] MAGNESIUM LEVEL 2020-09-15 04:50:00 HoffmanFlory matos Me thodist PHOSPHORUS LEVEL 2020-09-15 04:50:00 HoffmanFlory matos M ethodist ESTIMATED GFR 2020-09-15 04:50:00 Burgos, Anali [facility]jarano [facility] POC GLUCOSE 2020-09-14 21:19:00 Burgos, Anali [facility]ano [facility] POC GLUCOSE 2020-09-14 17:11:00 Burgos, Anali Grey [facility]ano [facility] POC GLUCOSE 2020-09-14 13:39:00 Burgos, Anali [facility]jarano [facility] HC COMPLETE BLD COUNT 2020-09-14 08:44:00 NwKendra rodney on [facility]agogue W/AUTO DIFF [place] BASIC METABOLIC PANEL 2020-09-14 07:08:00 NwoguKendra on Synagogue [place] ESTIMATED GFR 2020-09-14 07:08:00 Burgos, Anali [facility]jarano [facility] POC GLUCOSE 2020-09-14 07:08:00 Burgos, Anali Bejarano [facility] HEMOGLOBIN A1C 2020-09-14 05:30:00 Clark Castroist HC COMPLETE BLD COUNT 2020-09-14 05:30:00 Burgos, Anali montenegro [facility] W/AUTO DIFF BLOOD CULTURE, AEROBIC & 2020-09-13 20:40:00 NwoguKendraviolette Synagogue ANAEROBIC [place] POC GLUCOSE 2020-09-13 19:28:00 Burgos, Anali Bejarano [facility] TROPONIN 2020-09-13 17:00:00 Darci Fritz Meth jhonathan Johnson RTony COVID-19 QUALITATIVE PCR 2020-09-13 15:07:00 Franny Fritz R. NM LUNG PERFUSION IMAGING 2020-09-13 13:26:[address] CHEST WO CONTRAST 2020-09-13 12:50:00 Apple Agarwal [facility] [place] TROPONIN 2020-09-13 11:56:00 Darci Fritz Meth odmilly Ryan US DUPLEX VENOUS LOWER 2020-09-13 11:00:00 Farnaz Fritz on [facility] EXTREMITY RIGHT Alex R. ECG 12-LEAD 2020-09-13 09:59:35 Radha Nunn on [facility] HC COMPLETE BLD COUNT 2020-09-13 08:18:00 Gera Fritz W/AUTO DIFF Alex RTony PROTHROMBIN TIME WITH INR 2020-09-13 08:18:00 Cal Fritz Alex R. PARTIAL THROMBOPLASTIN 2020-09-13 08:18:00 Farnaz Fritz on [facility] TIME (PTT) Alex R. BASIC METABOLIC PANEL 2020-09-13 08:18:00 Gera Fritz [facility] Alex R. TROPONIN 2020-09-13 08:18:00 Darci rFitz Meth odist Alex R. ESTIMATED GFR 2020-09-13 08:18:00 Ahmet Bejarano Meth odist Alex R. MAGNESIUM LEVEL 2020-09-13 08:18:00 Ahmet [place] [facility] Alex R. ECG 12-LEAD 2020-09-13 08:14:16 Ahmet Bejarano Meth odist Alex R. ECG ED PRELIMINARY 2020-09-13 08:13:29 Darci Fritz ethodist INTERPRETATION Alex RTony [id number] 2020-09-12 00:00:00 Provider, Shanika Joya MRI BRAIN [...] Future Scheduled 2020-06-01 INFLUENZA VACCINE Gera [facility]an [facility] Test 00:00:00 [code = INFLUENZA VACCINE] Future Scheduled 2005-01-04 65+ PNEUMOCOCCAL [facility] Test 00:00:00 VACCINE (1 of 1 - PPSV23) [code = 65+ PNEUMOCOCCAL VACCINE (1 of 1 - PPSV23)] Future Scheduled 1990-01-04 SHINGLES VACCINES (#1) [place] [facility] Test 00:00:00 [code = SHINGLES VACCINES (#1)] Future Scheduled 1956 COVID-19 VACCINE (1 of [place] [facility] Test 00:00:00 2) [code = COVID-19 VACCINE (1 of 2)] Future Scheduled 1950-01-04 DIABETES: RETINAL EYE [place] [facility] Test 00:00:00 EXAM [code = DIABETES: RETINAL EYE EXAM] Future Scheduled 1950-01[birth year]04 DIABETIC FOOT EXAM [place] [facility] Test 00:00:00 [code = DIABETIC FOOT EXAM] Encounters Start End Encounter Admission Attending Care Care Encounter Source Date/Time Date/Time Type Type Clinicians Facility Department ID 2020-11-24 2020-11-24 Patient Faustino [facility] [id number] 00:00:00 00:00:00 Outreach [facility] [id number] [facility] 4.2.7.2.686 YESICA [id number] 2020-11-22 2020-11-22 Orders Doctor CONNIE [id number] 00:00:00 00:00:00 Only Unassigned, JEFFREY [id number] [facility] 4.2.7.2.686 [id number] 2020-10-18 2020-10-18 Office Kale [facility] [id number] 16:20:54 16:53:41 Visit Thomas Hayward [id number] Carmen 4.2.7.2.686 Karen [id number] [facility] 059 [facility] 2020-09-13 2020-09-19 Inpatient HENDRIX, [facility] 064 [id number] [place] 00:00:00 00:00:00 ADALID [address] 2020-08-30 2020-08-30 Outpatient [facility] [id number] [place] 00:00:00 00:00:00 SERAFIN [address] 2020-08-30 2020-08-30 Outpatient [facility] [id number] [place] 00:00:00 00:00:00 EDWARD [address] 2020-08-30 2020-08-30 Outpatient TATYANA, [facility] [id number] [place] 00:00:00 00:00:00 EDWARD [address] 2020-08-30 2020-08-30 Outpatient TATYANA, [facility] [id number] [place] 00:00:00 00:00:00 EDWARD [address] 2016-06-15 2016-06-15 Emergency [facility] [id number] [place] 00:00:00 00:00:[address] 2016-06-09 2016-06-11 Outpatient DESH, POPPY [facility] 012 [id number] [place] 00:00:00 00:00:[address] 2015-12-31 2015-12-31 Outpatient ARILE, [place] [address] [id number] [place] 00:00:00 00:00:00 KELAW [address] 2015-12-30 2015-12-30 Outpatient ARIEL, [facility] 934 [id number] [place] 00:00:00 00:00:00 BRETT [address] Results Test Description Test Time Test Comments Results Result Comments Source Surgical pathology request 2020-10-07 16:51:20 Test Item Value Reference Range Interpretation Comme nts Case number (test code = 2241784) [id number] Surgical pathology report (test code See link below for PDF Rehab Spec ort = 2256) Result status (test code = 1420848) This is Supplemental Report for [id number] JAIRO (test code = JAIRO) [facility] [id number] 09/16/2020Block B1 [facility] [id number] 08:45:47 Test Item Value Reference Range Interpretation Comments POC glucose (test 174 mg/dL 65-99 H Junior Programmer Analyst N paulette: Shittu code = 53195-3) Christina Device ID: [id number] able: TM Notified director of state Interpretation Abnormal (test code = 42936-0) [facility] [id number] 08:05:46 Test Item Value Reference Range Interpretation Comments WBC (test code = 6.70 See_Comment [Automated message] 32705-0) The system [employer] generated this result transmit kal reference range : 4.50 - 11.00 k/ uL. The reference r felecia was not used to interpret this result as normal/abnormal . RBC (test code = 4.61 m/uL 4.2-5.5 77279-1) HGB (test code = 718-7) 12.0 g/dL 12-16 HCT (test code = 4544-3) 36.7 % 37-47 L MCV (test code = 787-2) 79.6 fL 82-100 L MCH (test code = 785-6) 26.0 pg 27-34 L MCHC (test code = 786-4) 32.7 g/dL 31-37 RDW - SD (test code = 37.4 fL 37-55 22051-2) MPV (test code = 11.4 fL 8.8-13.2 75690-6) Platelet count (test 207 See_Comment [Autom ated message] code = 46340-5) The system [facility] generated this result transmit kal reference range : 150 - 400 k/uL. The reference range was not used to interpret this result as normal/abnormal . Nucleated RBC (test code 0.00 See_Comment [A utomated message] = 93912-3) The system [employer] generated this result transmit kal reference range : /100 WBC. The reference range was not used to interpret this result as normal/abnormal . Lab Interpretation (test Abnormal code = 51365-2) [facility] metabolic [id number] 07:59:07 Test Item Value Reference Range Interpretation Comments Sodium (test code = 140 See_Comment [Automa kal message] 8824-2) The system [employer] generated this result transmit kal reference range : 135 - 148 mEq/L. Th e reference range was not used to interpret this result as normal/abnormal . Potassium (test code = 4.0 See_Comment [Aut omated message] 8614-3) The system [employer] generated this result transmit kal reference range : 3.5 - 5.0 mEq/L. Th e reference range was not used to interpret this result as normal/abnormal . Chloride (test code = 104 See_Comment [Auto mated message] 1850-0) The system [employer] generated this result transmit kal reference range : 98 - 112 mEq/L. Th e reference range was not used to interpret this result as normal/abnormal . CO2 (test code = 24 See_Comment [Automated message] 2028-07) The system [employer] generated this result transmit kal reference range : 24 - 31 mEq/L. The reference range was not used to interpret this result as normal/abnormal . Anion gap (test code = 12@ANIO See_Comment [Aut omated message] 83382-7) The system [employer] generated this result transmit kal reference range : 7 - 15 mEq/L. The reference range was not used to interpret this result as normal/abnormal . BUN (test code = 12 mg/dL 8-23 3094-0) Creatinine (test code = 1.29 mg/dL 0.5-0.9 H 2160-0) Glucose (test code = 148 mg/dL 65-99 H 2345-7) Calcium (test code = 8.7 mg/dL 8.8-10.2 L 30985-5) Lab Interpretation Abnormal (test code = 92607-1) Bejarano MethodistEstimated [id number] 07:59:07 Test Item Value Reference Range Interpretation Comments Estimated GFR (test 39 mL/min/1.73 m2 A Derrick bella Units code = 5488) InterpretationG 1 >=90 Claudia l or highG2 60-89 Mildly decrease dG3a 45-59 Mil dly to moderately decr uxiyaW9w 30-44 Moderately to s everely decreasedG4 15-29 Severe ly decreasedG5 <15 Kidney skye lureThe eGFR was calcul ated using the Chron ic Kidney Disease Epidemiology Collaboration ( CKD-EPI) equation. Interpretation is based on recommendati ons of the National Ki dney Foundation-Kidn ey Disease Outcome s Quality Initiat lona (NKF-KDOQI) pub lished in 2013. Lab Interpretation Abnormal (test code = 79637-3) Bejarano MethodistBlood culture, aerobic & nlrrlgzil6289-12-01 02:03:08 Test Item Value Reference Range Interpretation Comments Blood culture No growth Specimen isolate (test after 5 days InformationSpe cimen code = 600-7) of Source: BloodS pecimen incubation. Site: Left Fore arm Bejarano MethodistXR Chest 1 Vw Aaujyqsy2221-62-41 09:42:47Hm Interface, Radiology Results - 09/18/2020 9:45 AM CSTEXAMINATION: XR CHEST [...] of cervicothoracic spine partially visualized.[id number] MethodistCytology (non-gynecological) [id number] 20:12:25 Test Item Value Reference Range Interpretation Comments Case number (test code = [id number]) Cytology See link below for (non-gynecological) PDF Lab Report report (test code = 1178) Result status (test code This is Final Report = [id number]) for [id number] [place] MethodistMagnesium qeckb2618-00-21 08:07:08 Test Item Value Reference Range Interpretation Comments Magnesium (test code = 42176-0) 1.7 mg/dL 1.6-2.4 [place] MethodistPhosphorus [id number] 08:07:05 Test Item Value Reference Range Interpretation Comments Phosphorus (test code = 2777-1) 2.4 mg/dL 2.4-4.5 [place] MethodistCBC with platelet and gkyzbrhbczop8085-96-26 06:16:54 Test Item Value Reference Range Interpretation Comments WBC (test code = 8.54 See_Comment [Automated message] 68078-0) The system [employer] generated this result transmit kal reference range : 4.50 - 11.00 k/ uL. The reference r felecia was not used to interpret this result as normal/abnormal . RBC (test code = 4.85 m/uL 4.2-5.5 21456-8) HGB (test code = 718-7) 12.4 g/dL 12-16 HCT (test code = 4544-3) 39.2 % 37-47 MCV (test code = 787-2) 80.8 fL 82-100 L MCH (test code = 785-6) 25.6 pg 27-34 L MCHC (test code = 786-4) 31.6 g/dL 31-37 RDW - SD (test code = 38.2 fL 37-55 09576-9) MPV (test code = 11.8 fL 8.8-13.2 06986-4) Platelet count (test 195 See_Comment [Autom ated message] code = 50565-2) The system [employer] generated this result transmit kal reference range : 150 - 400 k/uL. The reference range was not used to interpret this result as normal/abnormal . Nucleated RBC (test code 0.00 See_Comment [A utomated message] = 55177-9) The system [employer] generated this result transmit kal reference range : /100 WBC. The reference range was not used to interpret this result as normal/abnormal . Neutrophils (test code = 55.1 % 39-69 98149-0) Lymphocytes (test code = 29.2 % 25-45 78673-1) Monocytes (test code = 9.6 % 0-10 67130-1) Eosinophils (test code = 4.6 % 0-5 36651-9) Basophils (test code = 1.1 % 0-1 H 91003-7) Immature granulocytes 0.4 % 0-1 "Immat ure (test code = 13065-0) granul ocytes" (promyelocytes, myelocytes, metamyelocytes) Lab Interpretation (test Abnormal code = 68997-9) Bejarano SynagogueUrine vhtdwly1554-82-29 00:54:02 Test Item Value Reference Range Interpretation Comments Urine culture Mixed danny Specimen isolate (test <=10-3 col/cc InformationSp ecimen code = 43801-5) Source: Urin eSpecimen [facility]: [facility] MethodistBAL cell count and dvlkeikgesws4507-98-64 21:40:34 Test Item Value Reference Range Interpretation Comments BAL specimen source MAX BAL (test code = 56187-4) BAL cell count (test 0.040 m/mL Normal ranges: code = 72655-0) Nonsmokers: 0.007 - 0.363 Smokers: 0 - 1. 31 73% viability, many rbc's present BAL PAMS (test code = 3 % Normal ranges: 81234-9) Nonsmokers: 65 - 100 Smokers: 81 - 1 00 BAL PMNS (test code = 83 % Normal ranges: 9306-2) Nonsmokers: 0 - 3 Smok ers: 0 - 2 BAL eosinophils (test 10 % Normal ranges: code = 66255-7) Nonsmokers: 0 - 1 Smok ers: 0 - 1 BAL lymphs (test code = 4 % Norm al ranges: 33545-2) Nonsmokers: 0 - 10 Smo kers: 0 - 5 JAIRO (test code = JAIRO) BAL MAX [place] MethodistTransthoracic Echocardiogram Complete, (w Contrast, Strain and 3D if needed)2020-09-16 13:08:00Interface, Radiology Results In - 09/16/2020 1:09 PM LITIGATOR Echocardiography Report [address] [place] [address] Pat.Name: FRANTZ WEATHERS [facility].ID: [id number].Date: 09/16/2020 Refer.MD: ANALI BURGOS MDExraven Time: 9:19:00 AM Study Type:Routine Echo Height: 62in Weight: 148lb BSA: 1.68 m2 Age: 3 1940,80Y Sex: FEMALE BP: 120/56 HR: 73 bpm Sonogrphr: Aylin Rodriguez, BS, RDCS Pat. Stat.:Inpatient Room: [place] [address] Study Status:Final Echo Event ID:[id number] Order ID: [id number] Reason for Study:Syncope Procedures: 2D Echo, Colorflow [...] of 5 mmHg. MEASUREME NTS: 2DParasternal Long [place] AoAn 1.9 cm LVPWd 1 cm Ao [...] SVi 41 ml/m2 TV Pressure Gradient TV HsMlu896 cm/s TV PG 27 mmHg WALL MOTION:-------- RESTING WALL MOTION:Basal Inferoseptal wall is hypokinetic. Normal wall motion in allother carrington.Wall Index = 1.1Signed 09/16/2020 01:08 PMMary Alice Henley [facility] KagryuwvdSufyjk5345-12-63 13:03:19 Jaskaran Molina MD 09/16/2020 1:05 PMAirway Date/Time: 09/16/2020 1:03 PMPerformed by: Jaskaran Molina MDAuthorized by: Jaskaran Molina MD Location: ORUrgency: [...] RSI: No Number of Attempts at Approach: [facility] MethodistCT Chest Wo Tyhiozdt6776-13-43 09:34:07Hm Interface, Radiology Results Incoming - 09/16/2020 [...] susp icious for malignant adenopathy. [id number]_PS02[place] MethodistAntibody tvjmmtplbnhggv3654-60-39 06:07:00 Test Item Value Reference Range Interpretation Comments Antibody ID (test code = 61067-2) POS, Anti-D [place] MethodistABO and Rh eerccxcbltqt1475-00-28 06:06:00 Test Item Value Reference Range Interpretation Comments ABO grouping (test code = 883-9) A Rh type (test code = 92569-3) NEG [place] MethodistB natriuretic [id number] 05:53:02 Test Item Value Reference Range Interpretation Comments BNP (test code = 96110-1) 56 pg/mL 0-100 [place] MethodistType and [id number] 03:03:00 Test Item Value Reference Range Interpretation Comments ABO grouping (test code = 883-9) A Rh type (test code = 37053-1) NEG Antibody screen (gel) (test code = POS 890-4) [place] MethodistUrinalysis screen and microscopy, with reflex to culture 2020-09-15 22:06:01 Test Item Value Reference Range Interpretation Comments Specimen site (test Catheterized code = 5295553) Color, UA (test code = Yellow 5778-6) Appearance, UA (test Clear code = 5767-9) Specific gravity, UA 1.017 1.001-1.035 (test code = 5811-5) pH, UA (test code = 5.0 5.0-8.5 5803-2) Protein, UA (test code Negative Negative = 07324-9) Glucose, UA (test code Negative Negative = 46515-5) Ketones, UA (test code Negative Negative = 2514-8) Bilirubin, UA (test Negative Negative code = 5770-3) Blood, UA (test code = Negative Negative 5794-3) Nitrite, UA (test code Negative Negative = 5802-4) Urobilinogen, UA (test <2.0 <2.0 code = 18911-3) Leukocyte esterase, UA Small Negative A (test code = 5799-2) Epithelial cells, UA 2 See_Comment [Autom ated (test code = 5787-7) message ] The system which generated this result transmitted reference range : /HPF. The refer ence range was not u sed to interpret th is result as normal/abnormal . WBC, UA (test code = 32 See_Comment H [Autom ated 5821-4) message] The sy stem which generated this result transmitted reference range : 0 - 4 /HPF. The reference range was not used to interpret this result as normal/abnormal . RBC, UA (test code = 3 See_Comment [Autom ated 72976-0) message] The sy stem which generated this result transmitted reference range : 0 - 5 /HPF. The reference range was not used to interpret this result as normal/abnormal . Bacteria, UA (test Few None seen code = 87149-7) Yeast, UA (test code = None seen 47272-2) Yeast with None seen pseudohyphae, UA (test code = 52603-7) Hyaline casts, UA 20 See_Comment [Automate d (test code = 5796-8) message ] The system which generated this result transmitted reference range : /LPF. The refer ence range was not u sed to interpret th is result as normal/abnormal . Lab Interpretation Abnormal (test code = 92265-8) Darci MethodmillyHemoglobin [id number] 11:41:57 Test Item Value Reference Range Interpretation Comments Hemoglobin A1C (test 9.1 % 4-5.6 H HbA1c c utoffs for code = 24857-7) diagnosing diabetes:4.0% - 5.6% = normal5.7% - 6.4% = increased risk for diabetes (prediabetes)9> =6.5% = sueuodou4Uhsj s for glycemic contro l (ADA 2016)< 7.0% Ta rget for non adults with ganesh betes. More or less stringent targe ts may be appropriate for individual tamar ents. <7.5% Target for Children and adolescents wit h type 1 diabetes. Lab Interpretation (test Abnormal code = 22219-2) Darci JoyaCOVID-19 qualitative [id number] 20:21:50 Test Item Value Reference Range Interpretation Comments Interpretation (test Negative results do code = 5418378) not preclude 2019-nCoV infection and should not be used as the sole basis for treatment or other patient management decisions. Negative results must be combined with clinical observations, patient history, and epidemiological information. COVID-19 qualitative Not-Detected Not-Detected PCR result (test code = 88095-6) COVID-19 qualitative See link below for C ase Number: PCR (test code = PDF Lab Report [id number]) Darci Mejía 12 [id number] 19:27:22 Test Item Value Reference Range Interpretation Comments Ventricular rate (test 93 code = 253) Atrial rate (test code 93 = 255) AR interval (test code 128 = 266) QRSD [...] are now present-QRS axis shifted left- Darci JoyaMoikezpamGwokrjei5156-72-06 18:10:56 Test Item Value Reference Range Interpretation Comments Troponin (test code 0.012 ng/mL 0-0.04 In patie nts suspected = 80702-9) of having a rochelle cardial infarction, nellysyd davies with all other appro priate clinical [...] decreased by le ss than 0.020 ng/mL [facility] duplex venous lower [id number] 15:09:00Interface, Radiology Results In - 09/13/2020 3:09 PM [facility] Vascular Ultrasound Laboratory Lower Extremity Venous [id number] [address]Name: FRANTZ WEATHERS Pat.ID: [id number] .Date: 09/13/2020 Refer.MD: CAS PATE MD, ALEX FRITZ MDExraven Time: 10:32:00 AM Study Type:LE Venous Height: 62in Weight: 148lb BSA: 1.68 m2 Age: 3 1940,80Y Sex: FEMALE Sonogrphr: TITO Koroma, Tong Gutierrez RDMS, RVTPat. Stat.:Inpatient Room: ED19 Tape Vol: CM, CPT - 4: 48775 Echo Event ID:[id number] Order ID: [id number] Reason for Study:Leg swelling or pain, DVT [...] Signed 09/13/2020 03:09 PMSantiago Samson MD, RPVI [facility] Lung Perfusion [id number] 13:53:35Hm Interface, Radiology Results - 09/13/2020 1:56 PM CSTPROCEDURE: [place] LUNG PERFUSION IMAGINGINDICATION: PE suspected low pretest [...] refer to the CT study report for details.[facility]-[id number] MethodistPartial thromboplastin time, activated 2020-09-13 09:09:09 Test Item Value Reference Range Interpretation Comments PTT (test code = 24.1 See_[place] [address]-5) unfractionated heparin is61.0-112.0 se conds which corresponds to Anti-Xa0.3-0.7 U/ml. [Automat ed message] The system [employer] generated this result tra nsmitted reference range : 23.0 - 36.0 sec. The refere nce range was not used to int erpret this result as claudia l/abnormal. [facility] MethodistProthrombin time with [id number] 09:08:33 Test Item Value Reference Range Interpretation Comments Prothrombin time (test 14.5 See_Comment [Aut omated message] The code = 5902-2) system which generated this result tra nsmitted reference range : 11.5 - 14.5 sec. The r eference range was not u sed to interpret this result as normal/abnormal . INR (test code = 1.1 The Interna tional 21946-9) Normalized Rati o (INR) is a therapeutic m onitoring tool for patien ts who are stable on oral anticoagulant t herapy. An INR of 2.0-3.0 is suggested for d eep vein thrombosis/pulm onary embolism. [facility] ED Preliminary Interpretation - Not an [id number] 08:13:29 Test Item Value Reference Range Interpretation Comments JAIRO (test code = JAIRO) Alex Fritz MD 09/14/2020 6:44 [facility] [place] ED Preliminary Interpretation - Not an OrderPerformed by: Alex Fritz MDAuthorized by: Alex Fritz MD ECG reviewed by ED Physician in the absence of a public policy analyst: yes Interpretation: Interpretation: abnormal Rate: ECG rate: 88 ECG rate assessment: normal Rhythm: Rhythm: sinus rhythm Ectopy: Ectopy: PVCs PVCs: FrequentQRS: QRS axis: Normal QRS intervals: NormalConduction: Conduction: normal ST segments: ST segments: NormalT waves: T waves: normal Comments: Prolonged QT Lab Interpretation Abnormal (test code = 94478-4) [facility] MethodistCT Chest External [id number] 10:45:49This exam was not acquired at a [facility] facility and has not been interpreted by a [facility] Provider. The exam was imported into our imaging system.[facility] MethodistNM Bone Scan External [id number] 10:45:27This exam was not acquired at a [facility] facility and has not been interpreted by a [facility] Provider. The exam was imported into our imaging system.[facility] MethodistPET/CT Whole Body External [id number] 10:45:06This exam was not acquired at a [facility] facility and has not been interpreted by a [facility] Provider. The exam was imported into our imaging system.[facility]
== END 2020-12-09 19:03 | disposition home or self-care (01) ==
LOC: ER 12:51
DX: U07.1 COVID-19 (principal); J12.82 Pneumonia due to coronavirus disease 2019; E86.0 Dehydration; R09.02 Hypoxemia; E11.9 Type 2 diabetes mellitus without complications; Z79.4 Long term (current) use of insulin
CPT/HCPCS: 96365; 96361; 93005; 87040 ×2; 85025; 80048; 36415; 84145; 83880; 71045; 99284; U0003; J2543; J7040 ×2